=== PATIENT | female | born 1955 | race Caucasian/White ===

== ENCOUNTER → 2019-01-26 22:35 | Outpatient (CLI) | payer OTHER, SELFPAY ==
[2019-01-25 17:46] VITALS: BMI 32.8
== END ==
PROVIDERS: Family Provider Family Medicine; PCP Family Medicine; Referring Provider Nurse Practitioner; Visit Provider Nurse Practitioner
DX: N39.0 Urinary tract infection, site not specified (principal)
CPT/HCPCS: 87086

== ENCOUNTER → 2019-03-04 22:16 | Outpatient (CLI) | payer OTHER, SELFPAY ==
[2019-03-04 15:37] VITALS: BMI 33.0
[2019-03-04 22:24] LABS: Absolute Lymphocyte Count 2.54 X10^3/uL (0.83-4.51); Absolute Neutrophil Count 4.9 X10^3/uL (2.0-7.7); Basophil# 0.04 X10^3/uL; Basophil% 0.5 % (0-1); Eosinophil# 0.18 X10^3/uL; Eosinophils% 2.2 % (0-5); Hematocrit 40.3 % (37-47); Hemoglobin 12.6 g/dL (12.0-15.0); Lymphocyte # 2.54 X10^3/ul (4.0); Lymphocyte % 30.7 % (19-41); Mean Corp Hgb Conc 31.3 g/dL (32-36); Mean Corpuscular Volume 92.6 fL (81-99); Mean Platelet Vol. 9.9 fl (6.2-12.0); Monocyte# 0.58 X10^3/uL; NRBC Flagged by Analyzer 0 % (0-5); Neutrophil # 4.91 X10^3/uL (2.7-7.7); Neutrophil % 59.2 % (47-70); Platelet Count 223 K/mm3 (150-450); RBC Distribution Width CV 15.1 % (11.6-14.6); RBC Distribution Width SD 51.8 fl (35.1-43.9); Red Blood Count 4.35 M/mm3 (4.2-5.4); White Blood Count 8.3 K/mm3 (4.4-11.0)
[2019-03-04 22:40] LABS: ALB/GLOB Ratio 0.9 RATIO (0.9-2.4); AST(SGOT) 15 U/L (15-37); Alanine Aminotransfer ALT/SGPT 17 U/L (13-56); Albumin, Serum 3.6 g/dL (3.2-5.0); Alkaline Phosphatase 152 U/L (45-117); Anion Gap 5 (5-15); BUN 13 mg/dL (7-18); BUN/Creat Ratio 10.7 RATIO (10-20); Chloride 110 mmol/L (98-107); Cholesterol 222 mg/dL (200); Creatinine, Serum 1.21 mg/dL (0.55-1.02); EST Glomerular Filtration Rate 48 mL/min (>60); Est Glom Filt Rate - Afr Amer 58 mL/min (>60); Globulin 4.2 g/dL (2.2-4.2); Glucose 78 mg/dL (74-106); High Density Lipoprotein 51 mg/dL; Potassium 3.6 mmol/L (3.5-5.1); Protein, Total 7.8 g/dL (6.4-8.2); Sodium Level 140 mmol/L (136-145); Triglycerides 174 mg/dL; Very Low Density Lipoprotein 35 mg/dL (5-40)
== END ==
PROVIDERS: Family Provider Family Medicine; PCP Family Medicine; Referring Provider Nurse Practitioner; Visit Provider Nurse Practitioner
DX: M79.7 Fibromyalgia (principal); F32.9 Major depressive disorder, single episode, unspecified; E78.00 Pure hypercholesterolemia, unspecified
CPT/HCPCS: 80053; 80061; 85025

== ENCOUNTER → 2020-04-12 22:19 | Outpatient (CLI) | payer OTHER, SELFPAY ==
[2020-04-12 14:47] VITALS: BMI 35.9
[2020-04-12 22:38] LABS: Absolute Lymphocyte Count 2.66 X10^3/uL (0.83-4.51); Absolute Neutrophil Count 4.9 X10^3/uL (2.0-7.7); Basophil# 0.04 X10^3/uL; Basophil% 0.5 % (0-1); Eosinophil# 0.17 X10^3/uL; Hematocrit 41.2 % (37-47); Hemoglobin 13.2 g/dL (12.0-15.0); Lymphocyte # 2.66 X10^3/ul (4.0); Lymphocyte % 31.7 % (19-41); Mean Corpuscular Hgb 30.1 pg (27.0-32.0); Mean Corpuscular Volume 94.1 fL (81-99); Mean Platelet Vol. 9.4 fl (6.2-12.0); Monocyte# 0.56 X10^3/uL; Monocyte% 6.7 % (0-10); NRBC Flagged by Analyzer 0 % (0-5); Neutrophil # 4.92 X10^3/uL (2.7-7.7); Neutrophil % 58.6 % (47-70); Platelet Count 256 K/mm3 (150-450); RBC Distribution Width CV 14.5 % (11.6-14.6); Red Blood Count 4.38 M/mm3 (4.2-5.4); White Blood Count 8.4 K/mm3 (4.4-11.0)
[2020-04-12 22:39] LABS: ALB/GLOB Ratio 0.8 RATIO (0.9-2.4); AST(SGOT) 19 U/L (15-37); Alanine Aminotransfer ALT/SGPT 17 U/L (13-56); Albumin, Serum 3.4 g/dL (3.2-5.0); Alkaline Phosphatase 167 U/L (45-117); Anion Gap 5 (5-15); BUN 18 mg/dL (7-18); BUN/Creat Ratio 15.5 RATIO (10-20); Chloride 112 mmol/L (98-107); Cholesterol 254 mg/dL (200); Creatinine, Serum 1.16 mg/dL (0.55-1.02); EST Glomerular Filtration Rate 50 mL/min (>60); Est Glom Filt Rate - Afr Amer 60 mL/min (>60); Globulin 4.2 g/dL (2.2-4.2); Glucose 82 mg/dL (74-106); High Density Lipoprotein 62 mg/dL; Protein, Total 7.6 g/dL (6.4-8.2); Sodium Level 141 mmol/L (136-145); Triglycerides 102 mg/dL; Very Low Density Lipoprotein 20 mg/dL (5-40)
== END ==
PROVIDERS: PCP Family Medicine; Referring Provider Nurse Practitioner; Visit Provider Nurse Practitioner
DX: M79.7 Fibromyalgia (principal); F32.9 Major depressive disorder, single episode, unspecified; E78.00 Pure hypercholesterolemia, unspecified
CPT/HCPCS: 80053; 80061; 85025

== ENCOUNTER → 2020-12-20 22:40 | Outpatient (CLI) | payer MEDICARE, SELFPAY ==
[2020-12-20 18:24] VITALS: BMI 33.6
[2020-12-20 22:48] LABS: Absolute Lymphocyte Count 2.99 X10^3/uL (0.83-4.51); Absolute Neutrophil Count 5.3 X10^3/uL (2.0-7.7); Basophil# 0.04 X10^3/uL; Basophil% 0.4 % (0-1); Eosinophil# 0.16 X10^3/uL; Eosinophils% 1.8 % (0-5); Hematocrit 42.2 % (37-47); Hemoglobin 13.5 g/dL (12.0-15.0); Lymphocyte # 2.99 X10^3/ul (0.83-4.51); Lymphocyte % 33.1 % (19-41); Mean Corpuscular Hgb 28.8 pg (27.0-32.0); Mean Corpuscular Volume 90.2 fL (81-99); Mean Platelet Vol. 10.1 fl (6.2-12.0); Monocyte# 0.54 X10^3/uL; NRBC Flagged by Analyzer 0 % (0-5); Neutrophil # 5.27 X10^3/uL (2.7-7.7); Neutrophil % 58.5 % (47-70); Platelet Count 233 K/mm3 (150-450); RBC Distribution Width CV 15.5 % (11.6-14.6); RBC Distribution Width SD 50.8 fl (35.1-43.9); Red Blood Count 4.68 M/mm3 (4.2-5.4)
[2020-12-20 22:59] LABS: AST(SGOT) 23 U/L (15-37); Alanine Aminotransfer ALT/SGPT 19 U/L (13-56); Albumin, Serum 3.8 g/dL (3.2-5.0); Alkaline Phosphatase 157 U/L (45-117); Anion Gap 8 (5-15); BUN 19 mg/dL (7-18); BUN/Creat Ratio 20.6 RATIO (10-20); Calcium,Total 9.2 mg/dL (8.5-10.1); Chloride 107 mmol/L (98-107); Cholesterol 207 mg/dL (200); Creatinine, Serum 0.92 mg/dL (0.55-1.02); EST Glomerular Filtration Rate 65 mL/min (>60); Est Glom Filt Rate - Afr Amer 79 mL/min (>60); Glucose 81 mg/dL (74-106); High Density Lipoprotein 50 mg/dL; Potassium 3.6 mmol/L (3.5-5.1); Protein, Total 7.8 g/dL (6.4-8.2); Sodium Level 140 mmol/L (136-145); Triglycerides 124 mg/dL; Very Low Density Lipoprotein 25 mg/dL (5-40)
== END ==
PROVIDERS: PCP Family Medicine; Referring Provider Nurse Practitioner; Visit Provider Nurse Practitioner
DX: M25.561 Pain in right knee (principal); G89.29 Other chronic pain; M25.562 Pain in left knee; F51.01 Primary insomnia; E78.5 Hyperlipidemia, unspecified
CPT/HCPCS: 80053; 80061; 85025

== ENCOUNTER → 2021-06-19 | Outpatient (CLI) | payer MEDICARE, SELFPAY ==
[2021-06-19 21:47] LABS: Absolute Lymphocyte Count 2.64 X10^3/uL (0.83-4.51); Absolute Neutrophil Count 4.3 X10^3/uL (2.0-7.7); Basophil# 0.04 X10^3/uL; Basophil% 0.5 % (0-1); Eosinophils% 2.6 % (0-5); Hemoglobin 14.1 g/dL (12.0-15.0); Lymphocyte # 2.64 X10^3/ul (0.83-4.51); Lymphocyte % 33.9 % (19-41); Mean Corpuscular Hgb 29.9 pg (27.0-32.0); Mean Corpuscular Volume 93.2 fL (81-99); Mean Platelet Vol. 9.2 fl (6.2-12.0); Monocyte# 0.56 X10^3/uL; Monocyte% 7.2 % (0-10); NRBC Flagged by Analyzer 0 % (0-5); Neutrophil # 4.32 X10^3/uL (2.7-7.7); Neutrophil % 55.5 % (47-70); Platelet Count 224 K/mm3 (150-450); RBC Distribution Width CV 13.9 % (11.6-14.6); RBC Distribution Width SD 47.8 fl (35.1-43.9); Red Blood Count 4.72 M/mm3 (4.2-5.4); White Blood Count 7.8 K/mm3 (4.4-11.0)
[2021-06-19 21:59] LABS: Vitamin B12 169 pg/mL (211-911)
[2021-06-19 22:04] LABS: ALB/GLOB Ratio 0.8 RATIO (0.9-2.4); AST(SGOT) 18 U/L (15-37); Alanine Aminotransfer ALT/SGPT 18 U/L (13-56); Albumin, Serum 3.4 g/dL (3.2-5.0); Alkaline Phosphatase 152 U/L (45-117); Anion Gap 4 (5-15); BUN 13 mg/dL (7-18); BUN/Creat Ratio 13.3 RATIO (10-20); CRP, High Sensitivity Cardiac 8.07 mg/L; Chloride 109 mmol/L (98-107); Creatinine, Serum 0.98 mg/dL (0.55-1.02); EST Glomerular Filtration Rate 60 mL/min (>60); Est Glom Filt Rate - Afr Amer 73 mL/min (>60); Globulin 4.3 g/dL (2.2-4.2); Glucose 98 mg/dL (74-106); Potassium 4.2 mmol/L (3.5-5.1); Protein, Total 7.7 g/dL (6.4-8.2); Sodium Level 141 mmol/L (136-145); T4 Free Direct 0.82 ng/dL (0.76-1.46); Thyroid Stim Hormone (TSH) 3.37 uIU/mL (0.358-3.74)
[2021-06-24 14:13] LABS: Vitamin D 1,25-Dihydroxy 53.5 pg/mL (19.9-79.3)
== END | disposition home or self-care (01) ==
LOC: LABSPEC 21:39
PROVIDERS: PCP Family Medicine; Visit Provider Nurse Practitioner
DX: R42 Dizziness and giddiness (principal); R00.2 Palpitations; E53.8 Deficiency of other specified B group vitamins; E55.9 Vitamin D deficiency, unspecified
CPT/HCPCS: 80053; 82607; 82652; 84439; 84443; 85025; 86141

== ENCOUNTER 2021-09-20 07:14 | Outpatient (CLI) | payer MEDICARE, SELFPAY ==
--- NOTE | 2021-09-20 07:45 | MRI_ITS ---
STUDY: MRI THORACIC SPINE WITHOUT CONTRAST REASON FOR EXAM: Female, 66 years old. Back pain and pain in the ribs for 6 months. COMPRESSION FX TECHNIQUE: Standardized fat and water weighted pulse sequences were obtained in the sagittal and axial planes. COMPARISON: None. FINDINGS: Normal kyphosis of the thoracic spine. There is a levoscoliosis of the thoracic spine. Benign fatty hemangiomas are present in several vertebral bodies. No visualized fracture or marrow edema or compression deformity. Cervical spine hardware is partially visualized. T1-2, T2-3, T3-4, T4-5, T5-6, T6-7, T7-8, T8-9, T9-10, T10-11, T11-12: Mild to moderate disc space narrowing, diffuse disc desiccation, and endplate spurring is present throughout the thoracic spine. No significant posterior disc herniation or bulging or extrusion is present. No demonstrated cord compression. Retrolisthesis of T12 on L1 of 3 mm the left paracentral disc protrusion. Normal central canal and intervertebral neural foramina at the corresponding levels. Normal visualized thoracic cord. No cord syrinx or lesions are present. Normal conus medullaris that terminates at the T12-L1 level.. The soft tissue structures are unremarkable. MRI/Spine Thoracic (Routine) IMPRESSION: 1. Multilevel degenerative changes of the thoracic spine. 2. No visualized fracture or marrow edema or compression deformity. Cervical spine hardware is partially visualized. Electronically Signed: Greyson Garland MD at 9:29 EDT ,
== END 2021-09-20 23:59 | disposition home or self-care (01) ==
LOC: MRI 07:17
PROVIDERS: PCP Nurse Practitioner; Referring Provider Anesthesiology Pain Medicine; Visit Provider Anesthesiology Pain Medicine
DX: M54.9 Dorsalgia, unspecified (principal); R07.81 Pleurodynia
CPT/HCPCS: 72146

== ENCOUNTER 2021-10-07 10:48 | Outpatient (CLI) | payer MEDICARE, SELFPAY ==
--- NOTE | 2021-10-07 10:55 | RAD_ITS ---
STUDY: X-RAY - LUMBAR SPINE REASON FOR EXAM: Female, 66 years old. RADICULOPATHY TECHNIQUE: 3 view(s) of the lumbar spine were obtained. COMPARISON: None FINDINGS: Exaggeration of the normal lordosis of the columns of the lumbar spine is visualized, grade 1 anterolisthesis of L4 over L5 is seen. No significant variation in alignment is visualized in the flexion, extension and neutral positions. No evidence of compression deformity of the lumbar vertebral bodies, multilevel degenerative endplate changes is seen. No evidence of lytic or sclerotic bone lesion is seen. Extensive degenerative changes visualized in the facet joints most prominent at L5. RAD/L/S Spine Bending Flex/Ext IMPRESSION: Degenerative changes of the lumbar spine, no evidence of acute osseous abnormality is seen. Electronically Signed: Danny Godinez MD at 12:36 EDT ,
--- NOTE | 2021-10-07 11:05 | RAD_ITS ---
INDICATION: RADICULOPATHY EXAMINATION/TECHNIQUE: X-RAY - XR Spine Thoracic 3 Views COMPARISON: 09/20/2021 FINDINGS: Mild levoscoliosis of the upper thoracic spine is visualized, levoscoliosis of the thoracolumbar junction is visualized. Multilevel degenerative endplate changes are seen is bone osteophyte formation. No evidence of compression deformity of the thoracic vertebral bodies. Suggestion of multilevel degenerative intervertebral disc disease is seen. Decreased intervertebral disc height is seen levels. No evidence of lytic or sclerotic bone lesion is seen. Internal fixation of the lower cervical spine is seen. No acute abnormalities of the visualized chest and abdominal mancuso. RAD/Thoracic Spine 3 Views IMPRESSION: Degenerative changes, no evidence of acute osseous abnormality Electronically Signed: Danny Godinez MD at 12:34 EDT ,
== END 2021-10-07 23:59 | disposition home or self-care (01) ==
LOC: RAD 10:51
PROVIDERS: PCP Nurse Practitioner; Referring Provider Anesthesiology Pain Medicine; Visit Provider Anesthesiology Pain Medicine
DX: M54.15 Radiculopathy, thoracolumbar region (principal)
CPT/HCPCS: 72072; 72120

== ENCOUNTER → 2022-03-14 | Outpatient (CLI) | payer MEDICARE, SELFPAY ==
[2022-03-14 21:39] LABS: Absolute Lymphocyte Count 2.52 X10^3/uL (0.83-4.51); Absolute Neutrophil Count 4.9 X10^3/uL (2.0-7.7); Basophil# 0.04 X10^3/uL; Basophil% 0.5 % (0-1); Eosinophil# 0.18 X10^3/uL; Eosinophils% 2.2 % (0-5); Hematocrit 43.2 % (37-47); Hemoglobin 14.4 g/dL (12.0-15.0); Lymphocyte # 2.52 X10^3/ul (0.83-4.51); Lymphocyte % 30.5 % (19-41); Mean Corp Hgb Conc 33.3 g/dL (32-36); Mean Corpuscular Hgb 30.8 pg (27.0-32.0); Mean Corpuscular Volume 92.3 fL (81-99); Mean Platelet Vol. 9.6 fl (6.2-12.0); Monocyte# 0.58 X10^3/uL; NRBC Flagged by Analyzer 0 % (0-5); Neutrophil # 4.92 X10^3/uL (2.7-7.7); Neutrophil % 59.6 % (47-70); Platelet Count 227 K/mm3 (150-450); RBC Distribution Width CV 13.7 % (11.6-14.6); RBC Distribution Width SD 46.6 fl (35.1-43.9); Red Blood Count 4.68 M/mm3 (4.2-5.4); White Blood Count 8.3 K/mm3 (4.4-11.0)
[2022-03-14 21:55] LABS: Vitamin B12 331 pg/mL (211-911)
[2022-03-14 22:04] LABS: ALB/GLOB Ratio 0.9 RATIO (0.9-2.4); AST(SGOT) 31 U/L (15-37); Alanine Aminotransfer ALT/SGPT 28 U/L (13-56); Albumin, Serum 3.6 g/dL (3.2-5.0); Alkaline Phosphatase 110 U/L (45-117); Anion Gap 6 (5-15); BUN 10 mg/dL (7-18); BUN/Creat Ratio 11.7 RATIO (10-20); Calcium,Total 9.1 mg/dL (8.5-10.1); Chloride 106 mmol/L (98-107); Cholesterol 213 mg/dL (200); Creatinine, Serum 0.85 mg/dL (0.55-1.02); EST Glomerular Filtration Rate 71 mL/min (>60); Est Glom Filt Rate - Afr Amer 86 mL/min (>60); Globulin 3.9 g/dL (2.2-4.2); Glucose 92 mg/dL (74-106); High Density Lipoprotein 53 mg/dL; Protein, Total 7.5 g/dL (6.4-8.2); Sodium Level 140 mmol/L (136-145); Thyroid Stim Hormone (TSH) 2.71 uIU/mL (0.358-3.74); Triglycerides 83 mg/dL; Very Low Density Lipoprotein 17 mg/dL (5-40)
[2022-03-17 18:08] LABS: Anti-Centromere B Ab <0.2 AI (0.0-0.9); Anti-Chromatin <0.2 AI (0.0-0.9); Anti-Jo <0.2 AI (0.0-0.9); Anti-Scleroderma-70 AB <0.2 AI (0.0-0.9); RNP Ab <0.2 AI (0.0-0.9); SJOGREN'S Anti-SS-A test < 0.2 AI (0.0-0.9); SJOGREN'S Anti-SS-B test < 0.2 AI (0.0-0.9); Smith Ab <0.2 AI (0.0-0.9)
[2022-03-18 13:57] LABS: Anti-dsDNA Ab <1 IU/mL (0-9)
== END | disposition home or self-care (01) ==
PROVIDERS: PCP Nurse Practitioner; Visit Provider Nurse Practitioner
DX: M25.50 Pain in unspecified joint (principal); R21 Rash and other nonspecific skin eruption; E53.9 Vitamin B deficiency, unspecified; M25.561 Pain in right knee; G89.29 Other chronic pain; M25.562 Pain in left knee; E78.5 Hyperlipidemia, unspecified; E03.9 Hypothyroidism, unspecified
CPT/HCPCS: 80053; 80061; 82607; 84443; 85025; 86225; 86235

== ENCOUNTER → 2022-09-24 | Outpatient (CLI) | payer MEDICARE, SELFPAY ==
[2022-09-24 22:31] LABS: Absolute Lymphocyte Count 2.69 X10^3/uL (0.83-4.51); Absolute Neutrophil Count 4.3 X10^3/uL (2.0-7.7); Basophil# 0.03 X10^3/uL; Basophil% 0.4 % (0-1); Eosinophil# 0.19 X10^3/uL; Eosinophils% 2.4 % (0-5); Hematocrit 39.8 % (37-47); Hemoglobin 13.1 g/dL (12.0-15.0); Lymphocyte # 2.69 X10^3/ul (0.83-4.51); Lymphocyte % 34.4 % (19-41); Mean Corp Hgb Conc 32.9 g/dL (32-36); Mean Corpuscular Hgb 28.9 pg (27.0-32.0); Mean Corpuscular Volume 87.7 fL (81-99); Mean Platelet Vol. 9.9 fl (6.2-12.0); Monocyte# 0.59 X10^3/uL; Monocyte% 7.6 % (0-10); NRBC Flagged by Analyzer 0 % (0-5); Neutrophil % 55.1 % (47-70); Platelet Count 253 K/mm3 (150-450); RBC Distribution Width CV 13.2 % (11.6-14.6); RBC Distribution Width SD 42.5 fl (35.1-43.9); Red Blood Count 4.54 M/mm3 (4.2-5.4); White Blood Count 7.8 K/mm3 (4.4-11.0)
[2022-09-24 22:55] LABS: ALB/GLOB Ratio 0.9 RATIO (0.9-2.4); AST(SGOT) 20 U/L (15-37); Alanine Aminotransfer ALT/SGPT 18 U/L (13-56); Albumin, Serum 3.5 g/dL (3.2-5.0); Alkaline Phosphatase 123 U/L (45-117); Anion Gap 6 (5-15); BUN 15 mg/dL (7-18); BUN/Creat Ratio 16.1 RATIO (10-20); Calcium,Total 9.6 mg/dL (8.5-10.1); Chloride 103 mmol/L (98-107); Cholesterol 200 mg/dL (200); Creatinine, Serum 0.93 mg/dL (0.55-1.02); EST Glomerular Filtration Rate 64 mL/min (>60); Est Glom Filt Rate - Afr Amer 77 mL/min (>60); Glucose 90 mg/dL (74-106); High Density Lipoprotein 46 mg/dL; Protein, Total 7.5 g/dL (6.4-8.2); Sodium Level 136 mmol/L (136-145); Thyroid Stim Hormone (TSH) 2.06 uIU/mL (0.358-3.74); Triglycerides 81 mg/dL; Very Low Density Lipoprotein 16 mg/dL (5-40)
== END | disposition home or self-care (01) ==
PROVIDERS: PCP Nurse Practitioner; Visit Provider Nurse Practitioner
DX: F51.01 Primary insomnia (principal); F41.1 Generalized anxiety disorder; F32.9 Major depressive disorder, single episode, unspecified; G43.709 Chronic migraine without aura, not intractable, without status migrainosus; M25.561 Pain in right knee; M25.562 Pain in left knee; G89.29 Other chronic pain; E03.9 Hypothyroidism, unspecified
CPT/HCPCS: 80053; 80061; 84443; 85025

== ENCOUNTER → 2023-09-01 | Outpatient (CLI) | payer MEDICARE, SELFPAY ==
[2023-09-01 22:19] LABS: Absolute Lymphocyte Count 2.36 X10^3/uL (0.83-4.51); Absolute Neutrophil Count 4.3 X10^3/uL (2.0-7.7); Basophil# 0.05 X10^3/uL; Basophil% 0.7 % (0-1); Eosinophil# 0.16 X10^3/uL; Eosinophils% 2.2 % (0-5); Hematocrit 41.6 % (37-47); Hemoglobin 13.2 g/dL (12.0-15.0); Lymphocyte # 2.36 X10^3/ul (0.83-4.51); Lymphocyte % 31.9 % (19-41); Mean Corp Hgb Conc 31.7 g/dL (32-36); Mean Corpuscular Hgb 28.6 pg (27.0-32.0); Mean Corpuscular Volume 90.2 fL (81-99); Mean Platelet Vol. 9.4 fl (6.2-12.0); Monocyte# 0.57 X10^3/uL; Monocyte% 7.7 % (0-10); NRBC Flagged by Analyzer 0 % (0-5); Neutrophil # 4.25 X10^3/uL (2.7-7.7); Neutrophil % 57.4 % (47-70); Platelet Count 250 K/mm3 (150-450); RBC Distribution Width CV 15.2 % (11.6-14.6); RBC Distribution Width SD 50.2 fl (35.1-43.9); Red Blood Count 4.61 M/mm3 (4.2-5.4); White Blood Count 7.4 K/mm3 (4.4-11.0)
[2023-09-01 22:29] LABS: Vitamin B12 201 pg/mL (211-911)
[2023-09-01 22:50] LABS: AST(SGOT) 17 U/L (15-37); Alanine Aminotransfer ALT/SGPT 13 U/L (13-56); Albumin, Serum 3.8 g/dL (3.2-5.0); Alkaline Phosphatase 152 U/L (45-117); Anion Gap 7 (5-15); BUN 13 mg/dL (7-18); BUN/Creat Ratio 11.9 RATIO (10-20); Calcium,Total 9.3 mg/dL (8.5-10.1); Chloride 104 mmol/L (98-107); Cholesterol 233 mg/dL (200); Creatinine, Serum 1.09 mg/dL (0.55-1.02); EST Glomerular Filtration Rate 53 mL/min (>60); Est Glom Filt Rate - Afr Amer 64 mL/min (>60); Globulin 3.9 g/dL (2.2-4.2); Glucose 82 mg/dL (74-106); High Density Lipoprotein 55 mg/dL; Magnesium 2.5 mg/dL (1.6-2.6); Potassium 4.1 mmol/L (3.5-5.1); Protein, Total 7.7 g/dL (6.4-8.2); Sodium Level 141 mmol/L (136-145); Thyroid Stim Hormone (TSH) 3.76 uIU/mL (0.358-3.74); Triglycerides 154 mg/dL; Very Low Density Lipoprotein 31 mg/dL (5-40)
[2023-09-05 20:07] LABS: Treponema palladium Ab (FTA) Non Reactive (Non Reactive); VITAMIN B6 4.2 ug/L (3.4-65.2)
== END | disposition home or self-care (01) ==
PROVIDERS: PCP Nurse Practitioner; Referring Provider Nurse Practitioner; Visit Provider Nurse Practitioner
DX: N30.90 Cystitis, unspecified without hematuria (principal); E03.9 Hypothyroidism, unspecified; G47.00 Insomnia, unspecified; F32.9 Major depressive disorder, single episode, unspecified; M25.561 Pain in right knee; G89.29 Other chronic pain; M25.562 Pain in left knee; E53.8 Deficiency of other specified B group vitamins; F41.1 Generalized anxiety disorder; R41.3 Other amnesia
CPT/HCPCS: 80053; 80061; 82607; 82746; 83735; 84207; 84443; 85025; 86780; 87077; 87086; 87088; 87186

== ENCOUNTER → 2023-09-14 | Outpatient (CLI) | payer MEDICARE, SELFPAY | END | disposition home or self-care (01) | PROVIDERS: PCP Nurse Practitioner; Visit Provider Nurse Practitioner | DX: N30.90 Cystitis, unspecified without hematuria (principal) | CPT/HCPCS: 87086 ==

== ENCOUNTER → 2023-10-01 | Outpatient (CLI) | payer MEDICARE, SELFPAY | END | disposition home or self-care (01) | LOC: LABSPEC 20:35 | PROVIDERS: PCP Nurse Practitioner; Visit Provider Nurse Practitioner | DX: R41.3 Other amnesia (principal); K58.9 Irritable bowel syndrome, unspecified; E03.9 Hypothyroidism, unspecified | CPT/HCPCS: 81291 ==

== ENCOUNTER → 2023-12-03 | Outpatient (CLI) | payer MEDICARE, SELFPAY ==
[2023-12-03 20:15] LABS: Absolute Lymphocyte Count 1.95 X10^3/uL (0.83-4.51); Absolute Neutrophil Count 4.2 X10^3/uL (2.0-7.7); Basophil# 0.03 X10^3/uL; Basophil% 0.4 % (0-1); Eosinophil# 0.15 X10^3/uL; Eosinophils% 2.2 % (0-5); Hematocrit 39.3 % (37-47); Hemoglobin 12.3 g/dL (12.0-15.0); Lymphocyte # 1.95 X10^3/ul (0.83-4.51); Lymphocyte % 28.7 % (19-41); Mean Corp Hgb Conc 31.3 g/dL (32-36); Mean Corpuscular Hgb 27.3 pg (27.0-32.0); Mean Corpuscular Volume 87.1 fL (81-99); Mean Platelet Vol. 9.7 fl (6.2-12.0); Monocyte# 0.47 X10^3/uL; Monocyte% 6.9 % (0-10); NRBC Flagged by Analyzer 0 % (0-5); Neutrophil # 4.18 X10^3/uL (2.7-7.7); Neutrophil % 61.7 % (47-70); Platelet Count 250 K/mm3 (150-450); RBC Distribution Width SD 47.9 fl (35.1-43.9); Red Blood Count 4.51 M/mm3 (4.2-5.4); White Blood Count 6.8 K/mm3 (4.4-11.0)
[2023-12-03 20:31] LABS: Vitamin B12 > 2000 pg/mL (211-911)
[2023-12-03 21:05] LABS: Cholesterol 196 mg/dL (200); High Density Lipoprotein 55 mg/dL; Triglycerides 99 mg/dL; Very Low Density Lipoprotein 20 mg/dL (5-40)
[2023-12-08 17:08] LABS: VITAMIN B6 22.3 ug/L (3.4-65.2)
== END | disposition home or self-care (01) ==
PROVIDERS: PCP Nurse Practitioner; Visit Provider Nurse Practitioner
DX: E53.1 Pyridoxine deficiency (principal); E78.5 Hyperlipidemia, unspecified; E03.9 Hypothyroidism, unspecified; N30.90 Cystitis, unspecified without hematuria; H20.9 Unspecified iridocyclitis
CPT/HCPCS: 80061; 82607; 82746; 84207; 85025; 87086

== ENCOUNTER → 2024-01-07 | Outpatient (CLI) | payer MEDICARE, SELFPAY | END | disposition home or self-care (01) | PROVIDERS: PCP Nurse Practitioner; Visit Provider Nurse Practitioner | DX: N30.90 Cystitis, unspecified without hematuria (principal) | CPT/HCPCS: 87077; 87086; 87088; 87186 ==

== ENCOUNTER → 2024-01-15 | Outpatient (CLI) | payer MEDICARE, SELFPAY | END | disposition home or self-care (01) | PROVIDERS: PCP Nurse Practitioner; Referring Provider Nurse Practitioner; Visit Provider Nurse Practitioner | DX: N30.90 Cystitis, unspecified without hematuria (principal) | CPT/HCPCS: 87086 ==

== ENCOUNTER → 2024-07-04 | Outpatient (CLI) | payer MEDICARE, SELFPAY ==
[2024-07-04 22:02] LABS: Absolute Lymphocyte Count 1.97 X10^3/uL (0.83-4.51); Absolute Neutrophil Count 4.1 X10^3/uL (2.0-7.7); Basophil# 0.03 X10^3/uL; Basophil% 0.5 % (0-1); Eosinophil# 0.11 X10^3/uL; Eosinophils% 1.7 % (0-5); Hematocrit 40.3 % (37-47); Hemoglobin 13.2 g/dL (12.0-15.0); Lymphocyte # 1.97 X10^3/ul (0.83-4.51); Lymphocyte % 29.7 % (19-41); Mean Corp Hgb Conc 32.8 g/dL (32-36); Mean Corpuscular Hgb 29.1 pg (27.0-32.0); Mean Platelet Vol. 9.3 fl (6.2-12.0); Monocyte# 0.46 X10^3/uL; Monocyte% 6.9 % (0-10); NRBC Flagged by Analyzer 0 % (0-5); Neutrophil # 4.05 X10^3/uL (2.7-7.7); Platelet Count 221 K/mm3 (150-450); RBC Distribution Width CV 13.2 % (11.6-14.6); RBC Distribution Width SD 43.4 fl (35.1-43.9); Red Blood Count 4.53 M/mm3 (4.2-5.4); White Blood Count 6.6 K/mm3 (4.4-11.0)
[2024-07-04 22:42] LABS: ALB/GLOB Ratio 0.9 RATIO (0.9-2.4); AST(SGOT) 14 U/L (15-37); Alanine Aminotransfer ALT/SGPT 15 U/L (13-56); Albumin, Serum 3.5 g/dL (3.2-5.0); Alkaline Phosphatase 136 U/L (45-117); Anion Gap 3 (5-15); BUN 11 mg/dL (7-18); BUN/Creat Ratio 12.8 RATIO (10-20); Calcium,Total 9.3 mg/dL (8.5-10.1); Chloride 103 mmol/L (98-107); Cholesterol 233 mg/dL (200); Creatinine, Serum 0.86 mg/dL (0.55-1.02); EST Glomerular Filtration Rate 69 mL/min (>60); Est Glom Filt Rate - Afr Amer 84 mL/min (>60); Globulin 3.9 g/dL (2.2-4.2); Glucose 104 mg/dL (74-106); High Density Lipoprotein 60 mg/dL; Potassium 4.5 mmol/L (3.5-5.1); Protein, Total 7.4 g/dL (6.4-8.2); Sodium Level 138 mmol/L (136-145); Triglycerides 154 mg/dL; Very Low Density Lipoprotein 31 mg/dL (5-40)
== END | disposition home or self-care (01) ==
PROVIDERS: PCP Nurse Practitioner; Referring Provider Nurse Practitioner; Visit Provider Nurse Practitioner
DX: E78.5 Hyperlipidemia, unspecified (principal); N32.81 Overactive bladder; K58.9 Irritable bowel syndrome, unspecified; E03.9 Hypothyroidism, unspecified; M79.7 Fibromyalgia; E28.39 Other primary ovarian failure

== ENCOUNTER → 2024-11-09 | Outpatient (CLI) | payer MEDICARE, SELFPAY ==
[2024-11-09 23:05] LABS: Absolute Lymphocyte Count 2.57 X10^3/uL (0.83-4.51); Absolute Neutrophil Count 3.3 X10^3/uL (2.0-7.7); Basophil# 0.05 X10^3/uL; Basophil% 0.8 % (0-1); Eosinophil# 0.14 X10^3/uL; Eosinophils% 2.1 % (0-5); Hematocrit 39.2 % (37-47); Hemoglobin 12.8 g/dL (12.0-15.0); Lymphocyte # 2.57 X10^3/ul (0.83-4.51); Lymphocyte % 39.1 % (19-41); Mean Corp Hgb Conc 32.7 g/dL (32-36); Mean Corpuscular Hgb 28.9 pg (27.0-32.0); Mean Corpuscular Volume 88.5 fL (81-99); Mean Platelet Vol. 9.8 fl (6.2-12.0); Monocyte# 0.46 X10^3/uL; NRBC Flagged by Analyzer 0 % (0-5); Neutrophil # 3.33 X10^3/uL (2.7-7.7); Neutrophil % 50.7 % (47-70); Platelet Count 235 K/mm3 (150-450); RBC Distribution Width CV 13.2 % (11.6-14.6); RBC Distribution Width SD 43.1 fl (35.1-43.9); Red Blood Count 4.43 M/mm3 (4.2-5.4); White Blood Count 6.6 K/mm3 (4.4-11.0)
[2024-11-10 11:24] LABS: ALB/GLOB Ratio 1.2 RATIO (0.9-2.4); AST(SGOT) 25 U/L (<=31); Alanine Aminotransfer ALT/SGPT 15 U/L (<=34); Albumin, Serum 4.1 g/dL (3.4-4.8); Alkaline Phosphatase 153 U/L (35-104); Anion Gap 10 (5-15); BUN 9 mg/dL (4-19); BUN/Creat Ratio 11.6 RATIO (10-20); Calcium,Total 9.5 mg/dL (7.6-11.0); Carbon Dioxide 27.5 mmol/L (21.0-32.0); Chloride 100 mmol/L (98-108); Cholesterol 190 mg/dL (<=200); Creatinine, Serum 0.78 mg/dL (0.70-1.20); EST Glomerular Filtration Rate 82 (>60); Globulin 3.3 g/dL (2.2-4.2); Glucose 77 mg/dL (70-99); High Density Lipoprotein 50 mg/dL; Lipase 16 U/L (13-75); Low Density Lipoprotein Calc. 115 mg/dL; Protein, Total 7.3 g/dL (5.9-8.4); Sodium Level 137 mmol/L (133-145); Total Bilirubin 0.19 mg/dL (0.00-1.30); Triglycerides 124 mg/dL; Very Low Density Lipoprotein 25 mg/dL (5-40); cholesterol:hdl ratio screen 3.78
== END | disposition home or self-care (01) ==
LOC: OLS.AHF 22:52
PROVIDERS: PCP Nurse Practitioner; Visit Provider Nurse Practitioner
DX: E78.2 Mixed hyperlipidemia (principal); E03.9 Hypothyroidism, unspecified; F41.1 Generalized anxiety disorder; F32.9 Major depressive disorder, single episode, unspecified; R53.83 Other fatigue
CPT/HCPCS: 80053; 80061; 83690; 84443; 85025

== ENCOUNTER → 2024-11-23 | Outpatient (CLI) | payer MEDICARE, SELFPAY ==
--- OUTSIDE RECORDS SUMMARY | 2024-11-23 22:58 | XMS RPT_ITS | CCD ---
Author Organization [facility] Care Team Providers Care Medical Record Retrieval Specialist Name Role Phone ABDIRAHMAN PRECIADO Unavailable Unavailable ABDIRAHMAN PRECIADO Unavailable Unavailable SEHLLEY, ANDRE Unavailable Unavailable SHELLEY, ANDRE Unavailable Unavailable NO REFERRING Unavailable Unavailable Shaggy BURGOS-Miriam PIKE Unavailable Miriam Whitley Unavailable Unavailable Binh Anderson Unavailable Unavailable Richelle Crystal Unavailable Unavailable Cande Ely Primary Care Provider John Ojeda MD Unavailable [employer].Cande PIKE Primary Care Provide r John Ojeda MD N Unavailable [phone] [employer].Cande PIKE Primary Care Provide r [employer] T[employer]ER.Cande PIKE L Primary Care Provide r Lincoln Glynn MD Unavailable Gloria Stewart PA-C Unavailable Tayla Whitman RN Unavailable [employer] T[employer]ER.Cande PIKE L Primary Care Provide r Lincoln Glynn MD Unavailable [phone] ÁNGEL ELYA Mario Referring Unavailable ELY, CANDE L Primary Care Unavailable ELY, CANDE L Primary Care Unavailable CESAR BARNEY Attending Unava ilable ÁNGEL ELYA L Primary Care Unavailable LAURA MCMANUS Attending Unavailable LAURA MCMANUS Referring Unavailable ÁNGEL ELYA L Primary Care Unavailable LAURA MCMANUS Attending Unavailable SELF Referring Unavailable ELY, CANDE L Primary Care Unavailable SIMMONSSIXTO Referring Unavailable ELY, CANDE L Primary Care Unavailable LAURA MCMANUS Attending Unavailable ELY, CANDE L Primary Care Unavailable ELY, CANDE L Primary Care Unavailable ELY, CANDE L Primary Care Unavailable PEREZ, CHRISTY E Referring Unavailable ELY, CANDE L Primary Care Unavailable PEREZ, CHRISTY E Referring Unavailable ELY, CANDE L Primary Care Unavailable PEREZ, CHRISTY E Referring Unavailable ELY, CANDE L Primary Care Unavailable PEREZ, CHRISTY E Referring Unavailable ELY, CANDE L Primary Care Unavailable LAURA MCMANUS Referring Unavailable ELY, CANDE L Primary Care Unavailable ELY, CANDE L Primary Care Unavailable MENA DOUGLASS Admitting Unavailable MENA DOUGLASS Attending Unavailable Rufina BANUELOS Consulting Unavailable PEREZ, CHRISTY E Attending Unavailable ELY, CANDE L [facility] Referring Unavailable ELY, CANDE L Primary Care [facility] Attending Unavailable ELY, CANDE L Primary Care Unavailable PEREZ, CHRISTY E Attending Unavailable ELY, CANDE L Primary Care Unavailable PEREZ, CHRISTY E Attending Unavailable ELY, CANDE L Primary Care Unavailable PEREZ, CHRISTY E Referring Unavailable ELY, CANDE L Primary Care Unavailable HAYDEE WEBB Attending Unavailable [facility], [facility] M Referring Unavailable ELY, CANDE L Primary Care Unavailable Ely SALES SUPPORT COORDINATOR, Cande Primary Care Unavailable Ely SALES SUPPORT COORDINATOR, Cande Attending Unavailable Ely SALES SUPPORT COORDINATOR, Cande Attending Unavailable Ely SALES SUPPORT COORDINATOR, Cande Primary Care Unavailable Ely SALES SUPPORT COORDINATOR, Cande Primary Care Unavailable Ely SALES SUPPORT COORDINATOR, Cande Attending Unavailable Ely SALES SUPPORT COORDINATOR, Cande Referring Unavailable Ely SALES SUPPORT COORDINATOR, Cande Primary Care Unavailable Ely SALES SUPPORT COORDINATOR, Cande Attending Unavailable Ely SALES SUPPORT COORDINATOR, Cande Referring Unavailable Ely SALES SUPPORT COORDINATOR, Cande Primary Care Unavailable Ely SALES SUPPORT COORDINATOR, Cande Attending Unavailable Medications Current Medications Medication Drug Class(es) Dates Sig (Normalized) Sig (Original) acetaminophen 325 mg / butalbital 50 mg / caffeine 40 mg oral tablet (20 sources) Barbiturate, Central Nervous System Stimulant, Methylxanthine Start: 07-25-2016 End: 08-23-2024 take 1 tablet by mouth every six hours as needed acetaminophen 325 mg-caffeine 40 mg-butalbital 50 mg (FIORICET) per tablet [The details of the medication are not available because there are pending changes by a home health clinician.] 30 tablet 1 07/25/2016 08/23/2024 Discontinued Start: 07-25-2016 take 1 tablet by rani th every six hours as needed acetaminophen 325 mg-caffeine 40 mg-butalbital 50 mg (FIORICET) per tablet Take 1 tablet by mouth every 6 hours as needed. 30 tablet 1 07/25/2016 Active Comment on above: Take 1 tablet by rani th every 6 hours as needed. [The details of the medication are not available because there are pending changes by a home health clinician.] ALPRAZolam 0.25 mg disintegrating oral tablet (1 source) Benzodiazepine Start: 03-22-20 ALPRAZolam (NIRAVAM) dissolvable tablet 0.25 mg amoxicillin 875 mg / clavulanate 125 mg oral tablet (17 sources) Penicillin-class Antibacterial Start: 06-25-19 End: 07-30-19 take 1 tablet by mouth every twelve hours amoxicillin-clavula vega acid (AUGMENTIN) 875-125 mg per tablet Take 1 tablet by mouth every 12 hours for 28 days. 56 tablet 0 07/02/2022 07/30/2022 Active Comment on above: Take 1 tablet by rani th every 12 hours for 10 days. Take 1 tablet by rani th every 12 hours for 28 days. atorvastatin 10 mg oral tablet (20 sources) HMG-CoA Reductase Inhibitor Start: 07-05-19 25 take 1 tablet by mouth once atorvastatin (LIPITOR) 10 mg tablet Take 1 tablet by mouth every afternoon. 07/05/2024 Active calcium chloride 0.0014 meq/ml / potassium chloride 0.004 meq/ml / sodium chloride 0.103 meq/ml / sodium lactate 0.028 meq/ml injectable solution (1 source) Start: 03-22-20 lactated ringers infusion cephalexin 250 mg oral capsule (20 sources) Cephalosporin Antibacterial Start: 04-03-20 24 take 1 capsule by mouth once daily cephALEXin (KEFLEX) 250 mg capsule Take 1 capsule by mouth once daily. 90 capsule 04/03/2024 Active Start: 03-28-2024 End: 04-04-2024 take 1 capsule by mouth twice daily cephALEXin (KEFLEX) 500 mg capsule Take 1 capsule by mouth two times a day for 7 days. 14 capsule 03/28/2024 04/04/2024 Active 1 ml denosumab 60 mg/ml prefilled syringe (20 sources) RANK Ligand Inhibitor Start: 07-04-2022 denosumab (PROLIA) 60 mg/mL 60 mg by Injection - FOR ORTHO USE ONLY route once every 6 months. 07/04/2022 Active Comment on above: 60 mg as directed. [The details of the medication are not available because there are pending changes by a home health clinician.] 60 mg by Injection - FOR ORTHO USE ONLY route once every 6 months. 1 ml diphenhydrAMINE hydrochloride 50 mg/ml cartridge (1 source) Histamine-1 Receptor Antagonist Start: 03-22-2019 End: 03-22-2019 diphenhydrAMINE (BENADRYL) injection 12.5 mg enteric contrast (will be provided with radiology test) (3 sources) Start: 08-23-2024 End: 08-24-2024 enteric contrast (will be provided with radiology test) For CT ABD/PEL W IVCON Routine order Administer, As Directed One Time Only, via Oral, Rectal, both Oral and Rectal, Enteric Tube, Stoma or Indwelling Catheter, Enteric Contrast as designated per enteric contrast guidelines 1 Each 08/23/2024 08/24/2024 Active esomeprazole 40 mg delayed release oral capsule (20 sources) Proton Pump Inhibitor take 1 capsule by mouth once daily in the morning esomeprazole (NEXIUM) 40 mg capsule Take 40 mg by mouth daily at 6 am. Active Comment on above: Take 40 mg by mouth DAILY (6 AM). Take 40 mg by mouth daily at 6 am. estradiol 0.1 mg/ml vaginal cream (20 sources) Estrogen Start: 02-01-2024 estradiol (ESTRACE) 0.01 % (0.1 mg/gram) vaginal cream Apply a pea size amount to the vagina nightly for two weeks then 3 weeks for 1 year 42.5 g 11 02/01/2024 Active 2 ml fentaNYL 0.05 mg/ml injection (2 sources) Opioid Agonist Start: 03-22-2019 fentaNYL (SUBLIMAZE) injection 25 mcg Start: 03-22-2019 fentaNYL (SUBL IMAZE) injection 50 mcg folic acid 1 mg oral tablet (20 sources) Start: 09-02-2023 take 1 tablet by mouth once daily folic acid 1 mg tablet Take 1 mg by mouth once daily. 09/02/2023 Active 1 ml hydrALAZINE hydrochloride 20 mg/ml injection (1 source) Arteriolar Vasodilator Start: 03-22-2019 hydrALAZINE (APRESOLINE) injection 5 mg 1 ml HYDROmorphone hydrochloride 1 mg/ml cartridge (2 sources) Opioid Agonist Start: 03-22-2019 HYDROmorphone (DILAUDID) injection 0.25 mg Start: 03-22-2019 HYDROmorphone (DILAUDID) injection 0.5 mg ibuprofen 600 mg oral tablet (20 sources) Nonsteroidal Anti-inflammatory Drug Start: 05-20-2023 take 1 tablet by mouth every eight hours as needed ibuprofen (MOTRIN) 600 mg tablet Take 1 tablet by mouth every 8 hours as needed for pain or fever (specify temp.). 21 tablet 05/20/2023 Active Comment on above: Take 1 tablet by mouth every 8 hours as needed for pain or fever (specify temp.). iv contrast (will be provided with radiology test) (6 sources) Start: 08-23-2024 End: 08-24-2024 iv contrast (will be provided with radiology test) CT ABD/PEL -Inject, intravenously, once for 1 dose.No IV access, insert saline lock prior to the beginning of sedation, infusion, injection of imaging exam. Discontinue saline lock post exam. If Pt. has a central line or IVAD, may access for administration according to line specific nursing protocol. Once exam is complete flush line and de-access according to line specific nursing protocol in the CT contrast administration guidelines link. 1 Each 08/23/2024 08/24/2024 Active Start: 03-04-2024 End: 03-05-2024 iv contrast (will be provide d with radiology test) CT Urogram WO/W Inject, intravenously, once for 1 dose.No IV access, insert saline lock prior to the beginning of sedation, infusion, injection of imaging exam. Discontinue saline lock post exam. If Pt. has a central line or IVAD, may access for administration according to line specific nursing protocol. Once exam is complete flush line and de-access according to line specific nursing protocol in the CT contrast administration guidelines link. 1 Each 03/04/2024 03/05/2024 Active Start: 07-09-2022 End: 07-10-2022 iv contrast (will be provide d with radiology test) CT ABD W -Inject, intravenously, once for 1 dose.No IV access, insert saline lock prior to the beginning of sedation, infusion, injection of imaging exam. Discontinue saline lock post exam. If Pt. has a central line or IVAD, may access for administration according to line specific nursing protocol. Once exam is complete flush line and de-access according to line specific nursing protocol in the CT contrast administration guidelines link. 1 Each 0 07/09/2022 07/10/2022 Start: 07-09-2022 End: 07-10-2022 iv contrast (will be provide d with radiology test) CT ABD W -Inject, intravenously, once for 1 dose.No IV access, insert saline lock prior to the beginning of sedation, infusion, injection of imaging exam. Discontinue saline lock post exam. If Pt. has a central line or IVAD, may access for administration according to line specific nursing protocol. Once exam is complete flush line and de-access according to line specific nursing protocol in the CT contrast administration guidelines link. 1 Each 0 07/09/2022 07/10/2022 Active Comment on above: CT ABD W -Inject, in travenously, once for 1 dose.No IV access, insert saline lock prior to the beginning of sedation, infusion, injection of imaging exam. Discontinue saline lock post exam. If Pt. has a central line or IVAD, may access for administration according to line specific nursing protocol. Once exam is complete flush line and de-access according to line specific nursing protocol in the CT contrast administration guidelines link. 4 ml labetalol hydrochloride 5 mg/ml cartridge (1 source) beta-Adrenergic Henry Start: 03-22-20 labetalol (NORMODYNE;TRANDATE) injection 5 mg lansoprazole 30 mg delayed release oral capsule (20 sources) Proton Pump Inhibitor Start: 09-25-19 take 30 mg by mouth once daily Lansoprazole Active 30 MG PO DAILY September 24, 2022 5:50pm Start: 03-14-2022 End: 09-24-2022 take 30 mg by mouth twice daily Lansoprazole Discontinued 30 MG PO TWICE A DAY March 14, 2022 3:02pm September 24, 2022 5:53pm Start: 04-19-2020 End: 05-21-2022 take 30 mg by mouth once daily Lansoprazole Discontinu ed 30 MG PO DAILY June 19, 2021 4:55pm March 14, 2022 3:03pm Comment on above: Take 30 mg by mouth once daily. levothyroxine sodium 0.05 mg oral tablet (20 sources) l-Thyroxine Start: 09-02-2023 take 50 ug by mouth once daily Levothyroxine Active 50 MCG PO DAILY September 02, 2023 12:00am Start: 09-17-2021 End: 09-02-2023 take 1 tablet by mouth once daily levothyroxine (SYNTHROID) 25 mcg tablet Take 25 mcg by mouth once daily. 09/17/2021 Active Start: 06-20-2021 End: 09-17-2021 take 25 ug by mouth once daily Levothyroxine Discontin ued 25 MCG PO DAILY August 13, 2021 2:21pm September 17, 2021 6:02pm Comment on above: Take 25 mcg by mouth once daily. LORazepam 1 mg oral tablet (20 sources) Benzodiazepine Start: 7 take 1 tablet by mouth every eight hours LORazepam (ATIVAN) 1 mg tablet Indications: Anxiety , Depression, unspecified depression type Take 1 tablet by mouth every 8 hours. 30 tablet 08/06/2016 Active Start: 08-06-2016 LORazepam (ATI VAN) 1 mg tablet Indications: Anxiety , Depression, unspecified depression type [The details of the medication are not available because there are pending changes by a home health clinician.] 30 tablet 08/06/2016 Active Start: 08-06-2016 End: 06-02-2023 take 1 mg by mouth twice daily Lorazepam Discontinued 1 MG PO TWICE A DAY 60 August 20, 2018 3:45pm January 25, 2019 5:53pm Start: 08-06-2016 End: 11-08-2019 take 1 mg by mouth once daily Lorazepam Discontinued 1 MG PO DAILY June 03, 2019 4:39pm November 08, 2019 4:07pm Comment on above: Take 1 tablet by rani th every 8 hours. [The details of the medication are not available because there are pending changes by a home health clinician.] meclizine hydrochloride 12.5 mg oral tablet (20 sources) Antiemetic Start: 2 take 1 tablet by mouth every twelve hours as needed meclizine (ANTIVERT) 12.5 mg tab Take 1 tablet by mouth two times a day as needed (dizziness). 04/17/2022 Active Start: 06-19-2021 End: 09-24-2022 take 12.5 mg by mouth three times daily Meclizine Discontinued 12.5 MG PO THREE TIMES A DAY 45 March 14, 2022 3:03pm September 24, 2022 5:51pm Comment on above: Take 1 tablet by rani th as needed. [The details of the medication are not available because there are pending changes by a home health clinician.] Take 1 tablet by rani th twice daily as needed (dizziness). 1 ml meperidine hydrochloride 25 mg/ml cartridge (1 source) Opioid Agonist Start: 9 meperidine (DEMEROL) injection 12.5 mg 24 hr mirabegron 25 mg extended release oral tablet (20 sources) beta3-Adrenergic Agonist Start: End: take 1 tablet by mouth once daily mirabegron (MYRBETRIQ) 25 mg Tb24 Take 1 tablet by mouth once daily. 30 tablet 2 07/11/2024 10/09/2024 Active Start: 09-24-2022 End: 06-02-2023 take 1 tablet by mouth once daily Mirabegron (Myrbetriq) 25 mg tablet extended release 24 hr Discontinued 25 MG PO DAILY September 24, 2022 12:00am June 02, 2023 5:22pm sertraline 50 mg oral tablet (20 sources) Serotonin Reuptake Inhibitor Start: 05-20-2023 take 2 tablets by mouth once daily at bedtime sertraline (ZOLOFT) 50 mg tablet Indications: Anxiety , Depression, unspecified depression type Take 2 tablets by mouth daily at bedtime. 05/20/2023 Active Start: 03-10-2018 End: 06-02-2023 take 100 mg by mouth once daily Sertraline Discontinue d 100 MG PO DAILY 180 March 18, 2021 11:58am March 14, 2022 3:06pm Start: 10-02-2016 sertraline (ZO LOFT) 50 mg tablet Indications: Anxiety , Depression, unspecified depression type [The details of the medication are not available because there are pending changes by a home health clinician.] 90 tablet 2 10/02/2016 Active Start: 10-02-2016 take 1.5 tablets by mouth twice daily sertraline (ZOLOFT) 50 mg tablet Indications: Anxiety , Depression, unspecified depression type Take 1.5 tablets by mouth twice daily. 90 tablet 2 10/02/2016 Active Comment on above: Take 1.5 tablets by mouth twice daily. [The details of the medication are not available because there are pending changes by a home health clinician.] Take 2 tablets by [facility] daily at bedtime. 1000 ml sodium chloride 9 mg/ml injection (1 source) Start: End: 0.9 % sodium chloride (NACL 0.9%) infusion Administer at rate defined per CT contrast administration specifications. To be provided with radiology test. 150 mL 03/04/2024 03/04/2024 Active solifenacin succinate 5 mg oral tablet (20 sources) Cholinergic Muscarinic Antagonist Start: take 1 tablet by mouth once daily solifenacin (VESICARE) 5 mg tablet Take 1 tablet by mouth once daily. 30 tablet 1 04/13/2024 Active Start: 02-29-2024 End: 03-29-2024 take 1 tablet by mouth once daily solifenacin (VESICARE) 5 mg tablet Take 1 tablet by mouth once daily. 30 tablet 1 02/29/2024 03/29/2024 Discontinued sulfamethoxazole 800 mg / trimethoprim 160 mg oral tablet (9 sources) Dihydrofolate Reductase Inhibitor Antibacterial, Sulfonamide Antimicrobial Start: 08-08-2024 End: 08-09-2024 take 1 tablet by mouth twice daily sulfamethoxazole-trimethoprim (BACTRIM DS) 800-160 mg per tablet Indications: Recurrent UTI Take 1 tablet by mouth two times a day for 2 doses. Take the morning and evening of your Botox procedure. 2 tablet 1 08/08/2024 08/09/2024 Active Start: 02-29-2024 End: 03-03-2024 take 1 tablet by mouth twice daily sulfamethoxazole-trimethoprim (BACTRIM D S) 800-160 mg per tablet Take 1 tablet by mouth two times a day for 3 days. 6 tablet 02/29/2024 03/03/2024 Start: 01-25-2019 End: 02-04-2019 take 1 tablet by mouth twice daily Sulfamethoxazole-Trimethoprim Discontinu ed 1 TABLET PO TWICE A DAY 10 04January 25, 2019 12:00am February 04, 2019 12:07am Syringe With Needle (Bd Luer-Carmencita Syringe) 3 mL 23 x 1 syringe (6 sources) Start: 06-20-2021 Syringe With N eedle (Bd Luer-Carmencita Syringe) 3 mL 23 x 1 syringe Active 0 .ROUTE .MEDSUPPLY June 20, 2021 1:01pm As directed Start: 06-20-2021 End: 09-24-2022 Syringe With Needle (Bd Luer -Carmencita Syringe) 3 mL 23 x 1 syringe Discontinued 0 .ROUTE .MEDSUPPLY June 20, 2021 1:00am September 24, 2022 5:52pm As directed vitamin b12 1 mg/ml injectable solution (11 sources) Vitamin B12 Start: 09-02-2023 inject 1000 ug by intramuscular injection every week Cyanocobalamin (Vitamin B-12) Active 1000 MCG IM EVERY WEEK September 02, 2023 11:31am Start: 06-20-2021 End: 09-24-2022 inject 1000 ug by intramuscular injection every week Cyanocobalamin (Vitamin B-12) Discontinued 1000 MCG IM EVERY WEEK June 20, 2021 1:00am September 24, 2022 5:50pm Start: 06-19-2021 End: 06-19-2021 inject 1000 ug by intramuscular injection once cyanocobalamin (vitamin B-12) 1,000 mcg/mL injection solution Discontinued 1000 MCG IM ONCE June 19, 2021 4:20pm June 19, 2021 7:30pm Completed/Discontinued Medications Medication Drug Class(es) Dates Sig (Normalized) Sig (Original) acetaminophen 500 mg oral tablet (2 sources) Start: 03-22-2019 End: 03-22-2019 acetaminophen (TYLENOL) tablet 1,000 mg Start: 03-22-2019 End: 03-22-2019 acetaminophen (TYLENOL) tabl et 1,000 mg acetaminophen 325 mg / HYDROcodone bitartrate 10 mg oral tablet (8 sources) Opioid Agonist Start: 08-28-2016 End: 06-27-2022 take 1 tablet by mouth every eight hours as needed HYDROcodone-Acetaminophen (NORCO) 10-325 mg per tablet Take 1 tablet by mouth every 8 hours as needed for Pain. 90 tablet 0 08/28/2016 06/27/2022 Discontinued Comment on above: Take 1 tablet by rani th every 8 hours as needed for Pain. amoxicillin 500 mg oral capsule (1 source) Penicillin-cla ss Antibacterial Start: 12-09-2017 AMOXICILLIN 500 MG CAPS 4 capsules to be taken 1 hour prior to procedure AMOXICILLIN [id number] Andre Rosa MD aprepitant 40 mg oral capsule (1 source) Substance P/Neurokinin-1 Receptor Antagonist Start: 03-22-2019 End: 03-22-2019 aprepitant (EMEND) capsule 40 mg onabotulinumtoxina 100 unt injection (10 sources) Acetylcholine Release Inhibitor Start: 08-24-2024 End: 08-24-2024 inject 1 dose by intramuscular injection every 30 days 100 Units, INTRAMUSCULAR, ONCE (UP TO 30 DAYS AMB), 1 dose, On Thu08/24/24 at 1530, This record documents the total dose provided to patient. See progress note for specific locations and amounts administered. REFRIGERATE - Pharmaceutical Waste: Lab Pack - Start: 08-08-2024 End: 09-07-2024 onabotulinum toxin type A 10 0 Units injection (BOTOX) 12 hr buPROPion hydrochloride 100 mg extended release oral tablet (20 sources) Aminoketone Start: 03-10-2018 End: 04-12-2020 take 100 mg by mouth twice daily Bupropion Hcl Discontinued 100 MG PO TWICE A DAY 60 March 04, 2019 3:39pm April 12, 2020 3:11pm take 1 tablet by mouth twice delores ly buPROPion (WELLBUTRIN) 100 MG tablet Take 100 mg by mouth 2 times daily 0 Active ciprofloxacin 500 mg oral tablet (15 sources) Quinolone Antimicrobial Start: 09-02-2023 End: 10-02-2023 take 1 tablet by mouth twice daily Ciprofloxacin Hcl (Cipro) 500 mg tablet Discontinued 500 MG PO TWICE A DAY September 02, 2023 12:00am October 02, 2023 1:36pm Start: 08-23-2019 End: 11-08-2019 take 1 tablet by mouth twice daily Ciprofloxacin Hcl (Cipro) 500 mg tablet Discontinued 500 MG PO TWICE A DAY August 23, 2019 1:00am November 08, 2019 4:05pm Start: 01-20-2019 End: 01-25-2019 take 1 tablet by mouth twice daily Ciprofloxacin Hcl (Cipro) 500 mg tablet Discontinued 500 MG PO TWICE A DAY 14 January 20, 2019 12:00am January 25, 2019 5:51pm dicyclomine hydrochloride 20 mg oral tablet (20 sources) Anticholinergic Start: 03-14-2022 End: 09-24-2022 take 20 mg by mouth twice daily Dicyclomine Discontinued 20 MG PO TWICE A DAY March 14, 2022 12:00am September 24, 2022 5:50pm Comment on above: Take 20 mg by mouth twice daily. DULoxetine 30 mg delayed release oral capsule (3 sources) Serotonin and Norepinephrine Reuptake Inhibitor Start: 10-10-2022 End: 06-02-2023 take 30 mg by mouth once daily Duloxetine Discontinued 30 MG PO daily October 10, 2022 12:00am June 02, 2023 5:24pm famotidine 20 mg oral tablet (1 source) Histamine-2 Receptor Antagonist Start: 03-22-2019 End: 03-22-2019 famotidine (PEPCID) tablet 20 mg 1.5 ml fremanezumab-vfrm 150 mg/ml auto-injector (6 sources) Start: 04-12-2020 End: 06-19-2021 Fremanezumab-Vfrm (Ajovy Autoinjector) 225 mg/1.5 mL auto-injector Discontinued 225 MG SC EVERY MONTH April 12, 2020 12:00am June 19, 2021 4:53pm gabapentin 600 mg oral tablet (20 sources) Anti-epileptic Agent Start: 11-08-2019 End: 04-12-2020 take 900 mg by mouth twice daily Gabapentin Discontinued 900 MG PO TWICE A DAY 270 December 02, 2019 1:08pm April 12, 2020 3:06pm Start: 03-22-2019 gabapentin (NE URONTIN) capsule 300 mg Start: 03-11-2018 End: 11-08-2019 take 900 mg by mouth three times daily Gabapentin Discontinued 900 MG PO THREE TIMES A DAY 135 30 March 04, 2019 3:39pm November 08, 2019 4:07pm Start: 03-10-2018 End: 03-11-2018 take 300 mg by mouth three times daily Gabapentin Discontinued 300 MG PO THREE TIMES A DAY March 10, 2018 12:00am March 11, 2018 1:54pm Start: 05-22-2016 End: 05-21-2022 take 1.5 tablets by mouth three times daily gabapentin (NEURONTIN) 600 mg tablet Indications: Migraine without aura and without status migrainosus, not intractable Take 1.5 tablets by mouth three times daily. 135 tablet 2 05/22/2016 05/21/2022 Discontinued (Discontinued by Patient) take 1 tablet by rani th three times daily gabapentin (NEURONTIN) 600 mg tablet Take 600 mg by mouth three times a day. Active Comment on above: Take 1.5 tablets by mouth three times daily. 1 ml galcanezumab-gnlm 120 mg/ml auto-injector (18 sources) Start: 2018 End: 2018 Galcanezumab-Gnlm (Emgality Pen) 120 mg/mL pen injector Discontinued 120 MG SC EVERY MONTH September 09, 2018 12:00am January 25, 2019 5:55pm hydrOXYzine hydrochloride 10 mg oral tablet (18 sources) Antihistamine Start: 2019 End: 2020 take 10 mg by mouth three to four times daily Hydroxyzine Hcl Discontinued 10 MG PO 3 to 4 times per day 120 November 18, 2019 2:24pm April 12, 2020 3:19pm 2 ml ketorolac tromethamine 30 mg/ml injection (2 sources) Nonsteroidal Anti-inflammatory Drug, Cyclooxygenase Inhibitor Start: 2021 End: 2021 inject 60 mg by intramuscular injection once ketorolac 60 mg/2 mL intramuscular solution Discontinued 60 MG SC ONCE 2 August 09, 2021 6:47pm August 09, 2021 6:47pm Lidocaine (2 sources) Antiarrhythmic, Amide Local Anesthetic Start: 2023 End: 2023 lidocaine 10 mg/mL (1 %) injection (XYLOCAINE) Start: 03-22-2019 End: 03-22-2019 lidocaine PF 1 % injection 1 mL meloxicam 15 mg oral tablet (20 sources) Nonsteroidal Anti-inflammatory Drug Start: 06-03-2019 End: 04-12-2020 take 1 tablet by mouth once daily Meloxicam (Mobic) 15 mg tablet Discontinued 15 MG PO daily June 03, 2019 1:00am April 12, 2020 3:05pm take 1 tablet by mouth once marie y meloxicam (MOBIC) 7.5 mg tablet Take 7.5 mg by mouth once daily. Active mirtazapine 15 mg oral tablet (20 sources) Start: 03-10-2018 End: 08-09-2021 take 15 mg by mouth at bedtime Mirtazapine Discontinued 15 MG PO AT BEDTIME March 18, 2021 11:59am August 09, 2021 7:13pm 2 ml ondansetron 2 mg/ml injection (1 source) Serotonin-3 Receptor Antagonist Start: 03-22-2019 End: 03-22-2019 ondansetron (ZOFRAN) injection 4 mg oxyCODONE hydrochloride 5 mg oral tablet (2 sources) Opioid Agonist Start: 06-08-2022 End: 06-11-2022 take 1 tablet by mouth every six hours as needed for pain oxyCODONE IR (ROXICODONE) 5 mg immediate release tablet Indications: Incisional hernia, without obstruction or gangrene Take 1 tablet by mouth every 6 hours as needed for pain for up to 3 days. 12 tablet 0 06/08/2022 06/11/2022 Start: 03-22-2019 End: 03-22-2019 oxyCODONE (ROXICODONE) immed iate release tablet 5 mg Comment on above: Take 1 tablet by rani th every 6 hours as needed for pain for up to 3 days. phenazopyridine hydrochloride 200 mg oral tablet (1 source) Start: 03-22-2019 End: 03-22-2019 phenazopyridine (PYRIDIUM) tablet 200 mg Start: 03-22-2019 End: 03-22-2019 phenazopyridine (PYRIDIUM) t ablet 200 mg pregabalin 50 mg oral capsule (20 sources) Start: 03-10-2018 End: 03-11-2018 take 1 capsule by mouth three times daily Pregabalin (Lyrica) 50 mg capsule Discontinued 50 MG PO THREE TIMES A DAY March 10, 2018 12:00am March 11, 2018 1:57pm take 1 capsule by mouth twice da varinder pregabalin (LYRICA) 50 mg capsule Take 50 mg by mouth two times a day. Active promethazine hydrochloride 12.5 mg oral tablet (20 sources) Phenothiazine Start: 08-23-2019 End: 08-23-2019 inject 25 mg by intramuscular injection once promethazine 25 mg/mL injection solution Discontinued 25 MG IM ONCE 1 August 23, 2019 5:58pm August 23, 2019 6:32pm Start: 03-22-2019 End: 03-22-2019 promethazine (PHENERGAN) inj ection 6.25 mg Start: 03-10-2018 End: 09-24-2022 take 12.5 mg by mouth every four hours Promethazine Discontinued 12.5 MG PO Q4H June 19, 2021 4:55pm September 24, 2022 5:55pm Start: 10-02-2015 take 1 tablet by rani th every four hours as needed for nausea promethazine (PHENERGAN) 25 mg tablet Indications: Migraine without aura and without status migrainosus, not intractable Take 1 tablet by mouth every 4 hours as needed for Nausea/Vomiting. 30 tablet 5 10/02/2015 Active take 1 tablet by rani th every six hours as needed for nausea promethazine (PHENERGAN) 12.5 MG tablet Take 12.5 mg by mouth every 6 hours as needed for Nausea 0 Active Comment on above: Take 1 tablet by rani th every 4 hours as needed for Nausea/Vomiting. RABEprazole sodium 20 mg delayed release oral tablet (15 sources) Proton Pump Inhibitor Start: 09-02-19 End: 05-21-20 take 1 tablet by mouth once daily Rabeprazole (Aciphex) 20 mg tablet,delayed release (DR/EC) Discontinued 20 MG PO DAILY April 12, 2020 3:15pm December 20, 2020 6:40pm Comment on above: Take 20 mg by mouth once daily. raNITIdine 150 mg oral tablet (3 sources) Histamine-2 Receptor Antagonist Start: 01-15-20 End: 05-21-20 take 1 tablet by mouth twice daily ranitidine (ZANTAC) 150 mg tablet Take 1 tablet by mouth twice daily. 180 tablet 0 01/14/2017 05/21/2022 Discontinued (Discontinued by Patient) Comment on above: Take 1 tablet by rani th twice daily. sucralfate 1000 mg oral tablet (20 sources) Aluminum Complex Start: 03-14-20 End: 09-25-19 take 1 g by mouth twice daily Sucralfate Discontinued 1 GM PO TWICE A DAY March 14, 2022 12:00am September 24, 2022 5:52pm take 1 tablet by rani th once daily at bedtime sucralfate (CARAFATE) 1 gram tablet Take 1 g by mouth daily at bedtime. Active Comment on above: Take 1 g by mouth da varinder at bedtime. SUMAtriptan 100 mg oral tablet (20 sources) Serotonin-1b and Serotonin-1d Receptor Agonist Start: 03-10-2018 End: 09-24-2022 take 1 tablet by mouth once daily as needed Sumatriptan Succinate (Imitrex) 100 mg tablet Discontinued 100 MG PO DAILY June 19, 2021 4:55pm September 24, 2022 5:55pm 1 at the onset of the h/a then repeat x1 prn max 200 mg /24 hrs Start: 08-20-2016 take 1 tablet by rani th every two hours as needed SUMAtriptan (IMITREX) 100 mg tablet Take 1 tablet by mouth as needed. at onset of headache.May repeat after 2 hours. 9 tablet 5 08/20/2016 Active Comment on above: Take 1 tablet by rani th as needed. at onset of headache.May repeat after 2 hours. topiramate 100 mg oral tablet (20 sources) Anti-epileptic Agent Start: 8 End: 8 take 100 mg by mouth twice daily Topiramate Discontinued 100 MG PO TWICE A DAY March 10, 2018 12:00am March 11, 2018 2:00pm Start: 06-11-2017 End: 03-14-2022 take 100 mg by mouth twice daily Topiramate Discontinued 100 MG PO TWICE A DAY 180 September 17, 2021 6:03pm March 14, 2022 3:05pm traMADol hydrochloride 50 mg oral tablet (20 sources) Opioid Agonist Start: 08-09-2021 End: 06-02-2023 take 100 mg by mouth three times daily Tramadol Discontinued 100 MG PO THREE TIMES A DAY 180 September 24, 2022 5:55pm June 02, 2023 5:26pm Start: 04-12-2020 End: 08-09-2021 take 50 mg by mouth three times daily Tramadol Discontinued 50 MG PO THREE TIMES A DAY 90 December 20, 2020 6:44pm August 09, 2021 7:22pm Start: 03-11-2018 End: 04-12-2020 take 50 mg by mouth every six hours Tramadol Discontinued 50 MG PO EVERY 6 HOURS 120 August 20, 2018 3:45pm March 04, 2019 3:43pm Start: 03-10-2018 End: 03-11-2018 take 50 mg by mouth three times daily Tramadol Discontinued 50 MG PO THREE TIMES A DAY March 10, 2018 12:00am March 11, 2018 2:01pm Start: 06-11-2017 TRAMADOL HCL 5 0 MG TABS one tab 4 times a day as needed TRAMADOL HCL [id number] Andre Rosa MD take 1 tablet by rani th every eight hours as needed traMADol (ULTRAM) 50 mg tablet Take 50 mg by mouth every 8 hours as needed for pain. Active Comment on above: Take 50 mg by mouth as needed. Take 50 mg by mouth every 8 hours as needed for pain. traZODone hydrochloride 50 mg oral tablet (6 sources) Serotonin Reuptake Inhibitor Start: 2017 End: 2017 take 50 mg by mouth three times daily Trazodone Discontinued 50 MG PO THREE TIMES A DAY March 10, 2018 12:00am March 11, 2018 2:01pm triamcinolone acetonide 40 mg/ml injectable suspension (2 sources) Corticosteroid Start: 2021 End: 2021 inject 60 mg by intramuscular injection once triamcinolone acetonide 40 mg/mL suspension for injection Discontinued 60 MG IM ONCE 1.5 August 09, 2021 6:47pm August 09, 2021 6:47pm zolpidem tartrate 5 mg oral tablet (20 sources) gamma-Aminobutyric Acid-ergic Agonist Start: 2015 End: 2022 take 5 mg by mouth at bedtime Zolpidem Discontinued 5 MG PO AT BEDTIME 30 August 20, 2018 3:45pm March 04, 2019 3:43pm Start: 02-21-2016 take 1 tablet by rani th every twenty-four hours as needed zolpidem (AMBIEN) 5 mg tablet [The details of the medication are not available because there are pending changes by a home health clinician.] 30 tablet 2 02/21/2016 Active Comment on above: Take 1 tablet by rani th at bedtime as needed. [The details of the medication are not available because there are pending changes by a home health clinician.] Problems Active Problems Problem Classification Problem Date Documented Da te Episodic/Chronic Abdominal hernia (20 sources) Incisional hernia; Translations: [Incisional hernia without obstruction or gangrene] Onset: 04-21-2011 Resolved: 01-30-2015 Episodic Abdominal pain (20 sources) Epigastric pain; Translations: [Epigastric pain] Onset: 10-02-2016 Resolved: 10-04-2016 01-06-2023 Episodic Anxiety disorders (20 sources) Anxiety disorder; Translations: [Anxiety disorder, unspecified] Onset: 08-22-2024 03-13-2015 Chronic Biliary tract disease (20 sources) Cholangiectasis; Translations: [Other specified diseases of biliary tract] Onset: 10-06-2016 10-06-2016 Chronic Chronic obstructive pulmonary disease and bronchiectasis (20 sources) Bronchitis; Translations: [Bronchitis, not specified as acute or chronic] Onset: 08-22-2024 08-23-2019 Episodic Complication of device; implant or graft (7 sources) Infection and inflammatory reaction due to internal left knee prosthesis, initial encounter; Translations: [Pain due to knee joint prosthesis] Onset: 02-19-2017 05-11-2017 Episodic Conditions associated with dizziness or vertigo (20 sources) Dizziness; Translations: [Dizziness and giddiness] Onset: 08-22-2024 06-19-2021 Episodic Disorders of lipid metabolism (2 sources) Mixed hyperlipidemia; Translations: [Hyperlipidemia, unspecified] Onset: 07-27-2024 Chronic Esophageal disorders (20 sources) Gastro-esophageal reflux disease with esophagitis; Translations: [Gastroesophageal reflux disease with esophagitis] Onset: 04-21-2011 Resolved: 03-13-2015 03-13-2015 Chronic External Injury - Adverse effects of medical care (1 source) Other medical procedures as the cause of abnormal reaction of the patient, or of later complication, without mention of misadventure at the time of the procedure; Translations: [OTH MED PROC ABNORM RXN/] Onset: 02-19-2017 Genitourinary symptoms and ill-defined conditions (20 sources) Mixed urinary incontinence; Translations: [Mixed incontinence] Onset: 02-01-2024 02-01-2024 Chronic Genitourinary symptoms and ill-defined conditions (20 sources) Dysuria; Translations: [Dysuria] Onset: 02-29-2024 01-25-2019 Episodic Headache; including migraine (20 sources) Migraine without aura, not refractory ; Translations: [Migraine without aura, not intractable, without status migrainosus] Onset: 04-23-2011 Resolved: 03-13-2015 03-13-2015 Chronic Malaise and fatigue (20 sources) Fatigue; Translations: [Other fatigue] Onset: 08-22-2024 06-19-2021 Episodic Menopausal disorders (20 sources) Decreased estrogen level; Translations: [Other primary ovarian failure] Onset: 05-18-2023 08-09-2021 Chronic Mood disorders (6 sources) Depressive disorder; Translations: [Depression] 03-11-2018 Chronic Nausea and vomiting (20 sources) Nausea and vomiting; Translations: [Nausea with vomiting, unspecified] Onset: 10-04-2016 Resolved: 10-04-2016 06-08-2022 Episodic Nonmalignant breast conditions (20 sources) Breast lump; Translations: [Unspecified lump in the left breast, unspecified quadrant] Onset: 10-27-2023 09-30-2023 Episodic Nutritional deficiencies (20 sources) Vitamin D deficiency; Translations: [Vitamin D deficiency, unspecified] Onset: 10-03-2016 10-03-2016 Chronic Open wounds of head; neck; and trunk (17 sources) Open wound; Translations: [Wound drainage] Onset: 08-22-2024 Episodic Osteoarthritis (20 sources) Unilateral primary osteoarthritis, left knee; Translations: [Unilateral primary osteoarthritis, right knee] Onset: 03-18-2016 01-28-2018 Chronic Osteoporosis (20 sources) Menopausal osteoporosis; Translations: [Age-related osteoporosis without current pathological fracture] Onset: 08-22-2024 08-09-2021 Chronic Other acquired deformities (20 sources) Scoliosis of thoracic spine; Translations: [Other forms of scoliosis, thoracic region] Chronic Other connective tissue disease (20 sources) History of total knee arthroplasty; Translations: [Presence of right artificial knee joint] Onset: 05-11-2017 05-11-2017 Chronic Other connective tissue disease (1 source) Pain in right hand; Translations: [Right hand pain] Onset: 11-02-2024 Episodic Other diseases of bladder and urethra (20 sources) Overactive bladder; Translations: [Overactive bladder] Onset: 07-05-2024 09-24-2022 Chronic Other diseases of bladder and urethra (1 source) Overactive bladder; Translations: [OAB (overactive bladder)] Onset: 08-24-2024 Chronic Other gastrointestinal disorders (20 sources) Irritable bowel syndrome; Translations: [Irritable bowel syndrome without diarrhea] Onset: 08-06-2016 08-06-2016 Chronic Other gastrointestinal disorders (20 sources) Dysphagia; Translations: [Dysphagia, unspecified] Episodic Other gastrointestinal disorders (3 sources) Heartburn; Translations: [Heartburn] 10-25-2024 Episodic Other gastrointestinal disorders (1 source) Heartburn; Translations: [Heartburn] Onset: 10-25-2024 Episodic Other injuries and conditions due to external causes (2 sources) Local infection of wound; Translations: [Other injury of unspecified body region, initial encounter] Episodic Other injuries and conditions due to external causes (10 sources) Open wound with complication; Translations: [Other injury of unspecified body region, initial encounter] Onset: 08-22-2024 09-01-2023 Episodic Other lower respiratory disease (20 sources) Rib pain; Translations: [Pleurodynia] Onset: 08-22-2024 08-09-2021 Episodic Other non-traumatic joint disorders (6 sources) Pain in right knee; Translations: [Pain in both knees] 03-11-2018 Episodic Other non-traumatic joint disorders (20 sources) Joint pain; Translations: [Pain in unspecified joint] Onset: 08-22-2024 03-14-2022 Episodic Other non-traumatic joint disorders (3 sources) Pain in left shoulder; Translations: [Pain in joint, shoulder region] Onset: 11-03-2024 11-03-2024 Episodic Other nutritional; endocrine; and metabolic disorders (20 sources) Body mass index 30+ - obesity; Translations: [Obesity, unspecified] Onset: 10-02-2015 10-02-2015 Chronic Other nutritional; endocrine; and metabolic disorders (20 sources) Obese class I; Translations: [Obesity, unspecified] Onset: 06-06-2022 06-08-2022 Chronic Other skin disorders (20 sources) Eruption; Translations: [Rash and other nonspecific skin eruption] Onset: 08-22-2024 03-14-2022 Episodic Pancreatic disorders (not diabetes) (20 sources) Chronic pancreatitis; Translations: [Other chronic pancreatitis] Onset: 02-15-2016 08-22-2024 Chronic Pancreatic disorders (not diabetes) (6 sources) Other specified diseases of pancreas; Translations: [Pancreatic duct disorder] Onset: 09-08-2024 09-14-2024 Episodic Prolapse of female genital organs (1 source) Cystocele; Translations: [Cystocele, unspecified] 02-01-2024 Chronic Residual codes; unclassified (20 sources) Insomnia; Translations: [Insomnia, unspecified] Onset: 08-22-2024 06-03-2019 Episodic Residual codes; unclassified (20 sources) Edema of lower leg ; Translations: [Localized edema] Onset: 08-22-2024 09-01-2023 Episodic Residual codes; unclassified (1 source) Disorientation, unspecified; Translations: [Confusion] Onset: 11-02-2024 Episodic Rheumatoid arthritis and related disease (20 sources) Seronegative rheumatoid arthritis of multiple sites; Translations: [Rheumatoid arthritis without rheumatoid factor, multiple sites] Onset: 08-22-2024 08-04-2018 Chronic Spondylosis; intervertebral disc disorders; other back problems (20 sources) Lumbosacral spondylosis without myelopathy; Translations: [Spondylosis without myelopathy or radiculopathy, lumbosacral region] Onset: 10-28-2017 08-22-2024 Chronic Spondylosis; intervertebral disc disorders; other back problems (20 sources) Low back pain; Translations: [Chronic low back pain] Onset: 04-02-2017 Resolved: 05-21-2022 04-02-2017 Episodic Thyroid disorders (20 sources) Acquired hypothyroidism; Translations: [Hypothyroidism, unspecified] Onset: 07-05-2024 Chronic Unclassified (2 sources) Pain in left lower leg / M79.662(ICD-10) Onset: 12-03-2017 Unclassified (2 sources) Pain in unspecified knee / M25.569(ICD-10) Onset: 12-03-2017 Unclassified (6 sources) Transformed migraine; Translations: [Chronic migraine] 03-11-2018 Past or Other Problems Problem Classification Problem Date Documented Da te Episodic/Chronic Calculus of urinary tract (20 sources) Kidney stone; Translations: [Calculus of kidney] Onset: 02-09-2024 02-09-2024 Episodic Cardiac dysrhythmias (20 sources) Tachycardia; Translations: [Tachycardia, unspecified] Onset: 04-23-2011 Resolved: 04-23-2011 Episodic Complications of surgical procedures or medical care (20 sources) Postoperative abdominal wall wound abscess; Translations: [Infection following a procedure, other surgical site, initial encounter] Onset: 06-27-2022 06-27-2022 Episodic Diabetes mellitus without complication (20 sources) Metabolic stress hyperglycemia; Translations: [Hyperglycemia, unspecified] Onset: 04-23-2011 Resolved: 04-23-2011 Episodic Diseases of white blood cells (20 sources) Leukocytosis; Translations: [Elevated white blood cell count, unspecified] Onset: 06-27-2022 Resolved: 07-02-2022 06-27-2022 Chronic Fluid and electrolyte disorders (20 sources) Hyponatremia; Translations: [Hypo-osmolality and hyponatremia] Onset: 05-18-2023 Resolved: 05-20-2023 05-20-2023 Episodic Nutritional deficiencies (20 sources) Cobalamin deficiency; Translations: [Deficiency of other specified B group vitamins] Onset: 12-14-2023 06-19-2021 Episodic Other connective tissue disease (20 sources) Fibromyalgia; Translations: [Fibromyalgia] Onset: 07-05-2024 01-30-2015 Episodic Other gastrointestinal disorders (20 sources) Diarrhea; Translations: [Diarrhea, unspecified] Onset: 10-04-2016 Resolved: 10-04-2016 10-04-2016 Episodic Other injuries and conditions due to external causes (20 sources) Motion sickness; Translations: [Motion sickness, initial encounter] Onset: 01-30-2015 01-30-2015 Episodic Other nervous system disorders (20 sources) Postoperative pain ; Translations: [Other acute postprocedural pain] Onset: 04-22-2011 Resolved: 05-02-2011 06-17-2021 Episodic Other non-traumatic joint disorders (2 sources) Pain in unspecified knee; Translations: [Knee pain] Onset: 04-03-2017 04-03-2017 Episodic Other screening for suspected conditions (not mental disorders or infectious disease) (20 sources) Patient encounter status; Translations: [Encounter for screening mammogram for malignant neoplasm of breast] Onset: 04-23-2011 Resolved: 05-02-2011 12-20-2020 Episodic Pleurisy; pneumothorax; pulmonary collapse (20 sources) Atelectasis; Translations: [Atelectasis] Onset: 04-22-2011 Resolved: 04-27-2011 Episodic Residual codes; unclassified (20 sources) Past history of procedure; Translations: [Other specified postprocedural states] Onset: 10-06-2016 10-06-2016 Episodic Residual codes; unclassified (20 sources) History of hernia repair; Translations: [Other specified postprocedural states] Onset: 06-07-2022 Episodic Residual codes; unclassified (20 sources) Memory impairment; Translations: [Other amnesia] Onset: 10-07-2023 09-01-2023 Episodic Residual codes; unclassified (20 sources) Disorder of digestive tract; Translations: [Acquired absence of other specified parts of digestive tract] Onset: 02-15-2016 08-22-2024 Episodic Skin and subcutaneous tissue infections (20 sources) Cellulitis of left hand; Translations: [Cellulitis of left upper limb] Onset: 05-18-2023 06-07-2023 Episodic Unclassified (1 source) Pain in left lower leg; Translations: [Pain in left lower leg] Onset: 12-03-2017 Unclassified (1 source) Problem Unclassified (4 sources) CERVICLE NECK FUSION DDD DISEASE 01-19-2022 Unclassified (4 sources) DDD OF THE LOWER SPINE 01-19-2022 Unclassified (4 sources) DOUBLE BUNIONECTOMY 01-19-2022 Unclassified (4 sources) ERCP 01-19-2022 Unclassified (4 sources) TOTAL KNEE ARTHROPLASTY R 01-19-2022 Unclassified (20 sources) Drug therapy finding; Translations: [DVT prophylaxis] Onset: 04-23-2011 Resolved: 05-02-2011 06-17-2021 Urinary tract infections (20 sources) Cystitis; Translations: [Cystitis, unspecified without hematuria] Onset: 09-18-2023 01-25-2019 Episodic Results Test Name Value Interpretation Reference Range Facility [id number] 11-04-2024 [id number] HNO ID: [id number] Author: ALBERTO CHILDRESS RN Service: ? Author Type: Registered Nurse Type: [id number] Filed: 11/04/2024 14:45 Note Text: [phone] Marvin Lennon specialist (Infectious Diseases doctor) Normal [facility] ALKALINE PHOSPHATASE ISOENZY MES (P)on 11-04-2024 ALK PHOS BONE % 25.6 % Normal 10.7-68.3 [facility] Comment on above: Order Comment: Speci men Type: BLOOD SPECIMENOrdering Facility: [facility] Address: [address] [place] [address] Performed By: #### A LKISOP ####[facility] LABCLIA [id number] [address] [address] [place] [facility] ALK PHOS LIVER % 74.4 % Normal 26.0-86.2 [facility] Comment on above: Order Comment: Speci men Type: BLOOD SPECIMENOrdering Facility: [facility] Address: [address] [place] [address] Performed By: #### A LKISOP ####[facility] LABCLIA [id number] [place] [id number] [facility] BONE FRACTION 30.0 U/L Normal 12.9-52.6 [facility] Comment on above: Order Comment: Speci men Type: BLOOD SPECIMENOrdering Facility: [facility] Address: [address] [place] [address] Performed By: #### A LKISOP ####[facility] LABCLIA [id number] [address] [address] [place] INTESTINE FRACTION 0.0 U/L Normal 0.0-16.3 [facility] Comment on above: Order Comment: Speci men Type: BLOOD SPECIMENOrdering Facility: [facility] Address: [address] [place] [address] Performed By: #### A LKISOP ####[facility] LABCLIA [id number] [address] [address] [facility] OF [place] LIVER FRACTION 87.0 U/L High 16.0-69.3 [facility] Comment on above: Order Comment: Speci men Type: BLOOD SPECIMENOrdering Facility: [facility] Address: [address] [place] [address] Performed By: #### A LKISOP ####[facility] LABCLIA [id number] [place] [id number] [place] Neutrophils/100 WBC (Bld) 0.0 % Normal 0.0-24.2 [facility] Comment on above: Order Comment: Speci men Type: BLOOD SPECIMENOrdering Facility: [facility] Address: [address] [place] [address] Performed By: #### A LKISOP ####[facility] LABIA [id number] [place] [address] [place] ALP SerPl-cCncon 11-04-2024 ALP [Catalytic activity/Vol] 117 U/L Normal 34-123 [facility] Comment on above: Order Comment: Speci men Type: BLOOD SPECIMENOrdering Facility: [facility] Address: [address] [place] [address] Performed By: #### [id number] ####[facility] [id number] [address] [place] CNDSon 11-04-2024 CNDS HNO ID: [id number] Author: MENA DOUGLASS MD Service: Hospital Medicine Author Type: Physician Type: Discharge Summary Filed: 11/04/2024 16:52 Note Text: DISCHARGE NOTE (Patient Admitted Less than 48 Hours) SERVICE DAY: 11/04/2024 ADMISSION DATE: 11/02/2024 This is a 69 year old female who presents with shoulder pain and hand pain due to arthritis. Found to have UTI - tx with keflex, seen by ID for recurrent UTIs - they don't rec chronic prophylaxis. Stable for discharge home today. Physical exam: BP 131/82 Pulse 104 Temp 36.8 ?C (98.2 ?F) (Oral) Resp 18 Ht 154.9 cm (5' 1) Wt 73.9 kg (163 lb) SpO2 93% BMI 30.80 kg/m? General - no distress, alert and oriented x 3 Lungs - clear to auscultation b/l CVS- RRR, normal heart sounds, no M/R/G Abd- soft, nontender, BS present MS - no joint swelling/tenderness, good ROM Ext - no edema DISCHARGE MEDICATIONS: Medication List CHANGE how you take these medications cephALEXin 500 mg capsule Commonly known as: KEFLEX Take 1 capsule by mouth three times a day for 3 days. What changed: medication strength how much to take when to take this levothyroxine 75 mcg tablet Commonly known as: SYNTHROID Take 1 tablet by mouth once daily. What changed: medication strength when to take this sertraline 50 mg tablet Commonly known as: ZOLOFT Take 1 tablet by mouth two times a day. What changed: how much to take when to take this CONTINUE taking these medications atorvastatin 10 mg tablet Commonly known as: LIPITOR gabapentin 600 mg tablet Commonly known as: NEURONTIN LANSOPRAZOLE ORAL MULTIVITAMIN 50 PLUS Tab Generic drug: Tgvgrjouipnft-Euoqulht-T utein MYRBETRIQ ORAL promethazine 25 mg tablet Commonly known as: PHENERGAN Take 1 tablet by mouth every 4 hours as needed for Nausea/Vomiting. SUMAtriptan 100 mg tablet Commonly known as: IMITREX Take 1 tablet by mouth as needed. at onset of headache.May repeat after 2 hours. traMADol 50 mg tablet Commonly known as: ULTRAM STOP taking these medications folic acid 1 mg tablet ibuprofen 600 mg tablet Commonly known as: MOTRIN LORazepam 1 mg tablet Commonly known as: ATIVAN meloxicam 7.5 mg tablet Commonly known as: MOBIC PROLIA 60 mg/mL Generic drug: denosumab sucralfate 1 gram tablet Commonly known as: CARAFATE Where to Get Your Medications These medications were sent to [facility] [address] [place] [address] Hours: Thursday-Thursday: 7am-7pm, Sat: 9am-1pm cephALEXin 500 mg capsule FINAL DIAGNOSIS: UTI. Hand arthritis. Hypothyroidism. Time spent 25 min SIGNATURE: Mena Douglass MD [facility] ALLIED HEALTHon 11-03-2024 ALLIED HEALTH HNO ID: [id number] Author: MERI JARA RT(R) Service: ? Author Type: Technologist Type: Allied Health Filed: 11/03/2024 04:35 Note Text: Radiology Service Progress Note DATE OF SERVICE: November 03, 2024 TIME: 4:34 AM PATIENT IDENTITY VERIFICATION COMPLETED USING TWO (2) STANDARD IDENTIFIERS: Name and Date of confirmed by patient verbally and Name and Date of confirmed by identification band. FALL SCREENING: Has the patient had 2 falls in the last year or 1 fall with injury or currently using an Ambulatory Assistive Device (Walker, Cane, Wheelchair, Crutches, etc.)? Emergency Room Patient: Screened in ED PATIENT GENDER DATA: Assigned female at . status: : No status: NO. PATIENT RELEVANT IMPLANT DATA REVIEWED: Not Applicable PATIENT PRESENTS WITH AN IMPLANTABLE OR ATTACHED CARPENTRY SPECIALIST: No ALLERGIES: Reviewed and unchanged CONTRAST ALLERGY: NO. EXAM: CT -CONTRAST INDUCED NEPHROPATHY RISK FACTORS: Patient age > 60 years CREATININE: Creatinine Date Value Ref Range Status 11/02/2024 0.74 0.58 - 0.96 mg/dL Final 09/08/2024 0.82 0.58 - 0.96 mg/dL Final 08/24/2024 0.82 0.58 - 0.96 mg/dL Final Estimated Glomerular Filtration Rate Date Value Ref Range Status 11/02/2024 88 >=60 mL/min/1.73m? Final Comment: Estimated Glomerular Filtration Rate (eGFR) is calculated using the 2020 CKD-EPI creatinine equation. This equation utilizes serum creatinine, sex, and age as parameters. The creatinine assay has traceable calibration to isotope dilution-mass spectrometry. Refer to KDIGO guidelines for clinical interpretation. In patients with unstable renal function, e.g. those with acute kidney injury, the eGFR may not accurately reflect actual GFR. eGFR- Date Value Ref Range Status 08/10/2021 >60 Final P.O.C.T. RESULTS: N/A November 03, 2024 TREATMENT: N/A PERIPHERAL IV DATA: Inpatient - refer to LDA documentation RADIOLOGY DEPARTMENT: CT; Exam(s) Completed: Abdomen/Pelvis SIGNATURE: RT Buzz(R) PATIENT NAME: Tevin Villagomez DATE: November 03, 2024 TIME: 4:34 AM [facility] ALLIED HEALTH HNO ID: [id number] Author: AYLEEN CANO RT(R) Service: ? Author Type: Technologist Type: Allied Health Filed: 11/03/2024 02:40 Note Text: Radiology Service Progress Note PATIENT NAME: Tevin Villagomez DATE OF SERVICE: November 03, 2024 TIME: 2:39 AM PATIENT IDENTITY VERIFICATION COMPLETED USING TWO (2) IDENTIFIERS: Name and Date of confirmed by patient verbally and Name and Date of confirmed by identification band. FALL SCREENING: Has the patient had 2 falls in the last year or 1 fall with injury or currently using an Ambulatory Assistive Device (Walker, Cane, Wheelchair, Crutches, etc.)? Emergency Room Patient: Screened in ED PATIENT GENDER DATA: Assigned female at . status: : No status: NO. PATIENT RELEVANT IMPLANT DATA REVIEWED: Not Applicable PATIENT PRESENTS WITH AN IMPLANTABLE OR ATTACHED CARPENTRY SPECIALIST: No RADIOLOGY DEPARTMENT: General X-ray: Exam(s) Completed: Upper Extremity X-Ray(s): Shoulder, AP / TRUE AP / AXILLARY left and Hand, right PERIPHERAL IV DATA: Not applicable SIGNED BY: RT Erika(R) November 03, 2024 2:39 AM [facility] 11-03-2024 [facility] -------- TEVIN VILLAGOMEZ ([id number]) 1955 F Date Time Provider Department 11/03/24 ISMAEL MCCONNELL During your visit today, we recorded the following information about you: Roxana Robert, RN 11/03/2024 10:31 AM Signed ----- Message from Ismael Mcconnell MD sent at 11/03/2024 10:25 AM EDT ----- She is scheduled for EUS today. Presented to [facility] this morning with lower abdominal pain and UTI. She is admitted to the hospital. CT-scan AP negative except for dilated PD. Roxana: Update me on her condition. Will decide on when to schedule EGD+Linear EUS based on her condition. MD Shakeel Beckman Abbey C, PLANE TENDER.CLERK OF SCALES 11/03/2024 4:01 PM Signed Barak, Saw pt at bedside today with her daughter for GI consult. Both feel her scopes with Dr. Mcconnell can wait until she is discharged to reschedule please. She is also requesting updated colonoscopy but likely will pursue through Dr. Ojeda. We are signing off. Thanks, Ismael Thomas MD 11/06/2024 10:54 PM Signed Patient is discharged from [facility] 11/04/2024. Admitted with UTI and treated with Keflex. Was seen by ID for recurrent UTIs and they do not recommend chronic prophylaxis. Schedule EGD with linear EUS 1 month. MD Yesica Beckman Dawn, ASIM 11/07/2024 10:28 AM Addendum Ruth, please schedule EUS as indicated below. Thank you, ASIM Mujica Adm Ruth Vu II 11/07/2024 11:24 AM Signed Spoke with patient's granddaughter, Haydee, rescheduled EUS , 12/01/2024 at [facility]. Roxana: Patient's granddaughter, Haydee is helping her with her appointments, asking if she can take Aleve up to day prior EUS and questioning when she is due to colonoscopy and can Dr. Mcconnell also follow her for GI. Thank you. Ruth Hartley Adm Asst II Roxana Robert RN 11/07/2024 2:34 PM Signed Attempted to call Haydee not available. Spoke with pt's dtr Angelica regarding colonoscopy. She states Haydee was just truing to consolidate pt's doctors. Advised pt was only referred to us for EUS and that [facility] (pt's primary GI) is much closer to them as they live in [place]. She verbalized understanding and agreed. Dr. Mcconnell, please see msg below and advise regarding Aleve. Thank you, ASIM Mujica Khaled, MD 11/08/2024 10:00 AM Signed She can take Aleve till the day of the procedure. Ismael Mcconnell MD Allergies As of Date: 11/03/2024 (No Known Allergies) Date Reviewed: 11/03/2024 Reviewed by: Windy Coker RN - Fully Assessed Reason for Visit: Patient Update [1234] Cmt: Admitted for UTI, needs EUS rescheduled Prescriptions as of 11/09/2024 - sertraline (ZOLOFT) 50 mg tablet Take 1 tablet by mouth two times a day. - levothyroxine (SYNTHROID) 75 mcg tablet Take 1 tablet by mouth once daily. - LANSOPRAZOLE ORAL Take 30 mg by mouth every evening. - mirabegron (MYRBETRIQ ORAL) Take 25 mg by mouth every evening. - Iklqknkjfwnzo-Dgutqzpy-Z utein (MULTIVITAMIN 50 PLUS) tab Take 1 tablet by mouth once daily. - atorvastatin (LIPITOR) 10 mg tablet Take 1 tablet by mouth every afternoon. - gabapentin (NEURONTIN) 600 mg tablet Take 600 mg by mouth three times a day. - traMADol (ULTRAM) 50 mg tablet Take 50 mg by mouth every 8 hours as needed for pain. - SUMAtriptan (IMITREX) 100 mg tablet Take 1 tablet by mouth as needed. at onset of headache.May repeat after 2 hours. - promethazine (PHENERGAN) 25 mg tablet Take 1 tablet by mouth every 4 hours as needed for Nausea/Vomiting. Problem List As Of Date 11/03/2024 Noted Resolved Gastroesophageal reflux disease [K21.9] 04/21/2011 Laparotomy, Excision of esophageal leiomyoma an*04/21/2011 01/30/2015 Atelectasis [J98.11] 04/22/2011 04/27/2011 Postoperative pain [G89.18] 04/22/2011 05/02/2011 Migraine [G43.909] 04/23/2011 03/13/2015 Stress hyperglycemia [R73.9] 04/23/2011 04/23/2011 Tachycardia [R00.0] 04/23/2011 04/23/2011 DVT prophylaxis [XDB9093] 04/23/2011 05/02/2011 Discharge Planning [Z71.89] 04/23/2011 05/02/2011 GERD (gastroesophageal reflux disease) [K21.9] 03/13/2015 Neck pain [M54.2] 05/21/2022 Motion sickness [T75.3XXA] 01/30/2015 Osteoarthritis [M19.90] 03/18/2016 Fibromyalgia [M79.7] 07/05/2024 Migraine without aura and without status migrai*03/13/2015 Gastroesophageal reflux disease with esophagiti*03/13/2015 Anxiety disorder [F41.9] 08/22/2024 Obesity (BMI 30-39.9) [E66.9] 10/02/2015 Irritable bowel syndrome [K58.9] 08/06/2016 Pain of upper abdomen [R10.10] 10/02/2016 Malnutrition of moderate degree (HCC) [E44.0] 10/03/2016 Nausea and vomiting [R11.2] 10/04/2016 Diarrhea [R19.7] 10/04/2016 10/04/2016 Dilated bile duct [K83.8] 10/06/2016 S/P ERCP [Z98.890] 10/06/2016 Hypothyroidism [E03.9] 07/05/2024 Levoscoliosis of thoracic spine [M41.84] Dysphagia [R13.10] Incisional hernia, without obstruction or gangr* (more content not included)... Normal [facility] CONSULTon 11-03-2024 CONSULT HNO ID: [id number] Author: Rufina VARGHESE MD Service: Infectious Disease Author Type: Physician Type: Consults Filed: 11/03/2024 18:40 Note Text: BRIEF CONSULT NOTE SERVICE DATE: 11/03/2024 SERVICE TIME: 6:37 PM Patient seen. Full consult dictated RECOMMENDATIONS/PLAN Principal Problem: UTI (urinary tract infection) (POA: Yes) History of incontinence, intravesicular Botox injection in August 2024 Suggest to continue cephalexin She should be followed by her experimental aircraft mechanic, would not send her home on suppressive therapy . SIGNATURE: Rufina Varghese MD PATIENT NAME: Tevin Villagomez DATE: November 03, 2024 TIME: 6:37 PM [facility] CONSULT HNO ID: [id number] Author: MOY SLATER APRN.CNP Service: Gastroenterology Author Type: Nurse Practitioner Type: Consults Filed: 11/03/2024 16:23 Note Text: CONSULT: GI SERVICE SERVICE DATE: 11/03/2024 SERVICE TIME: 4:02 PM REASON FOR CONSULT: abd pain REQUESTING PHYSICIAN: Dr. Mendenhall PRIMARY CARE PHYSICIAN: Cande Ely APRN.CLERK OF SCALES Subjective Ms. Villagomez is a 69 year old female with past medical history significant for kidney stones, recurrent urinary tract infections, COPD, CAD, HH s/p Aditi Fundoplication known pancreatic duct dilatation who presents here today for concerns of confusion, left shoulder pain and right hand pain. Patient accompanied by her granddaughter who provide majority of the history. Patient is currently being worked up for this chronic abdominal pain, and abnormal dilated pancreatic duct. She is actually scheduled for an EGD with EUS today but was cancelled due to this admission. The last several days family is noted that she has been more confused lately, similar to previous presentations for her many UTIs in the past. She denies any worsening of the abdominal pain. Has had some vague nausea. Dysphagia at baseline. Denies any vomiting, constipation or diarrhea. Additionally has had increasing of her left neck/shoulder pain. He denies any other complaints. Patient states the abdominal pain has not changed from her baseline. Labs: WBC 9.51, H/H 12.9, 39.2, plt 194, BUN 12, Creat 0.74, TBili 0.6, Alk P 141, ALT 8, AST 17 FUNCTIONAL STATUS: Independent PAST MEDICAL HISTORY Diagnosis Date Acquired hypothyroidism Anxiety CAD (coronary artery disease) COPD (chronic obstructive pulmonary disease) with chronic bronchitis (HCC) Cystourethrocele Dysphagia Fibromyalgia GERD (gastroesophageal reflux disease) s/p surgery now controlled with zantac, Dr. Ojeda Gout Hiatal hernia Leiomyoma 04/22/2011 ESOPHAGUS, excised 04/22/2011 Levoscoliosis of thoracic spine Migraine Neck pain cervicle fusion 03/05 Open wound with complication 08/22/2024 Osteoarthritis ? RA Dr Lindsey mtx and [place] Osteoporosis Other specified abdominal hernia without obstruction or gangrene S/P Botox injection 07/2024 botox injection in bladder Vaginal vault prolapse after hysterectomy PAST SURGICAL HISTORY Procedure Laterality Date ARTHROSCOPY KNEE DIAGNOSTIC W/WO SYNOVIAL BX SPX Right 2016 meniscus repair BLADDER SURGERY HX BREAST AUGMENTATION WITH IMPLANT 1991 Breast augmentation BUNIONECTOMY, LAPIDUS-TYPE Bilat. COMPLEX CYSTOMETROGRAM VOIDING PRESSURE STUDIES 08/08/2024 CYSTOURETHROSCOPY 08/08/2024 CYSTOURETHROSCOPY INJ CHEMODENERVATION BLADDER 08/24/2024 EGD 02/2016 Dr. Ojeda EGD - BALLOON DILATION, GUIDE 01/2022 ESOPHAGOGASTRODUODENOSCO PY TRANSORAL DIAGNOSTIC 11/[address] Ojeda EXT HYSTERECTOMY,W/PARTIAL VAGINECTO benign causes I AND D ABSCESS, COMPLICATED N/A 06/28/2022 abdominal wound abscess KIDNEY STONE SURGERY HX Ureteral stents KNEE SURGERY HX Right PALOMO W/O FACETEC FORAMOT/DSC 06/23 VRT SGM CRV 02/2014 cervicle fusion LAPAROSCOPY SURG CHOLECYSTECTOMY 04/2011 Cholecystectomy, lap MAMMOTOME BIOPSY RIGHT 2013 NECK SURGERY HX PAST SURGICAL HISTORY OF 2015 MOHS for basal cell on her back PAST SURGICAL HISTORY OF 03/2016 R TKA PAST SURGICAL HISTORY OF 06/28/2022 Incision and drainage of abdominal wound infection/abscess. Dr. Glynn REPAIR INCISIONAL HERNIA,REDUCIBLE 06/06/[address] Perez RPR PARAESOPH HIATAL HERNIA W/LAPT W/O MESH 04/22/2011 Laparotomy, Excision of esophageal leiomyoma and repair of esophageal wall, Esophagogastroscopy, Aditi fundoplication for Short esophagus, Type I hiatal hernia and Esophageal leiomyoma TONSILLECTOMY PRIMARY/SECONDARY Tonsillectomy FAMILY HISTORY Problem Relation Age of Onset Cancer Mother Lung at 72 y/o Psychiatry Mother nervous breakdown, had shock therapy Cancer Father Lung at 76 y/o Psychiatry Father had nervous breakdown, had shock therapy other (no colon cancer) Father other (no breast cancer) Father other (no diabetes) Father other (no cad) Father Psychiatry Brother Breast Cancer Daughter dx age 37 Social History Tobacco Use Smoking status: Never Smokeless tobacco: Never Vaping Use Vaping status: Never Used Substance Use Topics Alcohol use: Yes Comment: rare 1x/year Drug use: No mirabegron (MYRBETRIQ ORAL), Take 25 mg by mouth every evening., Disp: , Rfl: , 11/01/2024 Aharjeaweltzp-Ypduaxpd-C utein (MULTIVITAMIN 50 PLUS) tab, Take 1 tablet by mouth once daily., Disp: , Rfl: , 11/02/2024 Morning sertraline (ZOLOFT) 50 mg tablet, Take 2 tablets by mouth daily at bedtime. (Patient taking differently: Take 100 mg by mouth daily at bedtime. Pt takes 50mg in AM and 50mg HS), Disp: , Rfl: , 11/02/2024 Morning ibuprofen (MOTRIN) 600 mg tablet, Take 1 tablet by mo (more content not included)... Normal [facility] CONSULT HNO ID: [id number] Author: Rufina VARGHESE MD Service: Infectious Disease Author Type: Physician Type: Consults Filed: 11/04/2024 18:26 Note Text: [facility] - Consultation TEVIN VILLAGOMEZ : 1955 AGE: 69 SEX: F CSN: [id number] [facility]: Medical LOCATION: [facility] ATTENDING PHYSICIAN: MENA DOUGLASS DATE OF SERVICE: 11/03/2024 TIME OF SERVICE: 06:00 PM CONSULTING PHYSICIAN: Cayden Varghese M.D. REQUESTING PHYSICIAN: Dr. Mena Douglass. HISTORY OF PRESENT ILLNESS: This is a 69-year-old female apparently has history of pancreatic dilatation and chronic abdominal pain and she was scheduled to undergo EGD and EUS today. However, during the last few days, her family noticed that she was somewhat disoriented and somewhat confused and they felt the patient has had similar episodes when she had a urinary tract infection and therefore she was brought to the emergency room yesterday. The patient endorses this same story, but she states that she has not had any urinary symptoms at present. She does not complain of any UTI symptoms currently. In looking back, I reviewed the Epic and it appears that she has been followed by [facility]. It appears someone referred her to this clinic in 01/2024 and they have made the diagnosis of stage 2 pelvic organ prolapse and urgent stress incontinence. She had a cystoscopy done in 02/2024 showing no abdominal findings. She appears to have received intravesicular Botox on 08/24/2024, and there has not been any additional visits with this group. The patient seems to think that she has improved with her incontinence. They have not addressed the issue of treatment of recurrent urinary tract infections with any suppressive antimicrobial therapy. However, in Apr 2024, oral cephalexin daily for 90 days was prescribed by her PCP . When I asked the patient, the patient states that she did receive Keflex, but then she changed the physician and it looks like the continuation of cephalexin did not happen when she changed the physician. The patient has had some additional complaints of pain in her shoulder and hand. PAST MEDICAL HISTORY: In addition to the above history, she has history of fibromyalgia and hypothyroidism, history of COPD. SOCIAL HISTORY: She is not a smoker. FAMILY HISTORY: No other significant sick contacts. REVIEW OF SYSTEMS: Essentially as noted above. The patient is able to give me a reasonable history and does not appear to be confused and disoriented currently. LABORATORY DATA: Since admission has revealed normal white cell count, normal hemoglobin, hematocrit, and platelet count. Chemistry shows no significant abnormality. Urinalysis as in the past has shown some pyuria, her wbc in the urine was greater than 25 wbc's per high-power field and she had positive leukocyte esterase. MICROBIOLOGY: Results reviewed. It appears urine cultures sent in 03/2024 had grown greater than 100,000 colonies of E coli. Admission urine culture still pending. IMAGING STUDIES: She had x-rays of the hand and shoulder, no acute findings were noted. She had a CT of the abdomen and pelvis obtained in the emergency room and according to the radiologist, no CT evidence of acute abnormality. PHYSICAL EXAMINATION: Vital Signs: Reveal the patient to be afebrile since admission to the hospital. Her vital signs reveal temperature of 36.6, blood pressure 120/76, pulse rate of 73. She is on room air, saturating well. General: She is awake, alert, and oriented. She was able to give me a reasonable history. Heart: Reveals S1 and S2 to be normal. Lungs: Clear. Abdomen: Soft and nontender. IMPRESSION: This is a 69-year-old female with significant history of urgent stress incontinence followed by [facility], has had cystoscopy in 02/2024 showed no abnormality. She received Botox injection to the intravesical on 08/24/2024, from which she appears to have improved. She presents with altered mental status and concern for urinary tract infection has been raised. Urine culture is still pending. It appears she did receive 1 dose of ceftriaxone in the emergency room and has been started on cephalexin 500 mg every 8 hours. The patient has been followed by [facility] and I preferred to have them follow her rather than simply placing her on chronic suppressive therapy. The patient's who goes on chronic suppressive therapy should be followed on a regular basis. So, I would hold putting her on any suppressive therapy and I have advised her that she should really be followed by Pelvic Medicine. We thank you very much for allowing us to participate in taking care of this patient. We will follow the patient as needed by you. Cayden Varghese M.D. Infectious Disease KG:[id number] (more content not included)... Normal [facility] CT ABD/PEL W IVCONon 025 CT ABD/PEL W IVCON * * *Final Report* * * DATE OF EXAM: Nov 03 2024 4:34AM [facility] 0530 - CT ABD/PEL W IVCON / PROCEDURE REASON: Abdominal abscess/infection suspected * * * * Physician Interpretation * * * * EXAMINATION: CT ABDOMEN AND PELVIS WITH IV CONTRAST CLINICAL HISTORY: Abdominal abscess/infection suspected TECHNIQUE: CT of the abdomen and pelvis was performed using standard technique, scanning from just above the dome of the diaphragm to the symphysis pubis. Contrast: IV: 100 ml of Omnipaque 350 CT Radiation dose: Integrated Dose-length product (DLP) for this visit = 704 mGy*cm. CT Dose Reduction Employed: Automated exposure control (AEC) COMPARISON: CT abdomen and pelvis 08/25/2024 RESULT: Liver: No mass. Biliary: Cholecystectomy. Spleen: No mass. No splenomegaly. Pancreas: Pancreatic duct measuring up to 6 mm diameter is unchanged. No peripancreatic inflammatory changes. Adrenals: No mass. Kidneys: No mass, calculus or hydronephrosis. GI tract: Small paraesophageal hernia is unchanged. No dilation or wall thickening. The appendix appears normal. Lymph nodes: No abdominal or pelvic lymphadenopathy. Mesentery/Peritoneum: No ascites or mass. Retroperitoneum: No mass or enlarged lymph nodes. Vasculature: No abdominal aortic aneurysm. Pelvis: No mass, ascites or fluid collection. The urinary bladder is unremarkable. Bones/Soft Tissues: The bones contain no worrisome lytic or sclerotic lesions. Lower thorax: The lung bases are clear. IMPRESSION: No CT evidence of acute abnormality. Personal Insurance Advisor: ELVIRA Transcribe Date/Time: Nov 03 2024 6:22A Dictated by : DANISHA SOTO MD This examination was interpreted and the report reviewed and electronically signed by: DANISHA SOTO MD on Nov 03 2024 6:28AM EST [id number] [facility] ED NOTEon 11-03-2024 ED NOTE HNO ID: [id number] Author: BRIELLE SAUCEDA, ASIM Service: ? Author Type: Registered Nurse Type: ED Notes Filed: 11/03/2024 10:11 Note Text: Patient previously scheduled for EGD today. Per Dr Lam delarosa for patient to go to EGD. Contacted mari, advised EGD cancelled. Dr Douglass updated via [facility] ED NOTE HNO ID: [id number] Author: BRIELLE SAUCEDA RN Service: ? Author Type: Registered Nurse Type: ED Notes Filed: 11/03/2024 07:09 Note Text: Patient report received from ASIM Palma [facility] ED NOTE HNO ID: [id number] Author: GENA VERDUGO RN Service: ? Author Type: Registered Nurse Type: ED Notes Filed: 11/03/2024 01:46 Note Text: Bed: 08-ED Expected date: Expected time: Means of arrival: Comments: triage [facility] ED PROV NOTEon 11-03-2024 ED PROV NOTE HNO ID: [id number] Author: KT BEJARANO DO Service: Emergency Medicine Author Type: Physician Type: ED Provider Notes Filed: 11/03/2024 06:50 Note Text: ED Provider Note Patient Name: Tevin Villagomez : 1955 SERVICE DATE: 11/02/24 History Patient presents with: Abdominal Pain: Supposed to have an endoscopy tomorrow, increased pain in lower abd/neck/groin. Scan is for a dialtated pancreatic duct. Pt states she is just in too much pain - ibuprofen @1400. Denies nausea, vomiting, diarrhea, constipation. Hx of UTIs - pt displaying some mild confusions that family is concerned about. HPI This 69-year-old female past medical history significant for kidney stones, recurrent urinary tract infections, COPD, CAD, known pancreatic duct dilatation who presents here today for concerns of confusion, left shoulder pain and right hand pain. Patient accompanied by her granddaughter and who provide majority of the history. Patient is currently being worked up for this chronic abdominal pain, and abnormal dilated pancreatic duct. She is actually scheduled for an EGD with EUS tomorrow. The last several days family is noted that she has been more confused lately, similar to previous presentations for her many UTIs in the past. She denies any worsening of the abdominal pain. Has had somevague nausea. Denies any vomiting, constipation or diarrhea. Additionally has had increasing of her left neck/shoulder pain. Worse with turning her head [id number]. Denies any numbness or weakness. No fevers no chills. Also has right hand pain. He denies any other complaints. Patient states the abdominal pain has not changed from her baseline. PAST MEDICAL HISTORY Diagnosis Date Acquired hypothyroidism Anxiety CAD (coronary artery disease) COPD (chronic obstructive pulmonary disease) with chronic bronchitis (HCC) Cystourethrocele Dysphagia Fibromyalgia GERD (gastroesophageal reflux disease) s/p surgery now controlled with zantac, Dr. Ojeda Gout Hiatal hernia Leiomyoma 04/22/2011 ESOPHAGUS, excised 04/22/2011 Levoscoliosis of thoracic spine Migraine Neck pain cervicle fusion 03/05 Open wound with complication 08/22/2024 Osteoarthritis ? RA Dr Lindsey mtx and irving Osteoporosis Other specified abdominal hernia without obstruction or gangrene S/P Botox injection 07/2024 botox injection in bladder Vaginal vault prolapse after hysterectomy PAST SURGICAL HISTORY Procedure Laterality Date ARTHROSCOPY KNEE DIAGNOSTIC W/WO SYNOVIAL BX SPX Right 2015 meniscus repair BLADDER SURGERY HX BREAST AUGMENTATION WITH IMPLANT 1991 Breast augmentation BUNIONECTOMY, LAPIDUS-TYPE Bilat. COMPLEX CYSTOMETROGRAM VOIDING PRESSURE STUDIES 08/08/2024 CYSTOURETHROSCOPY 08/08/2024 CYSTOURETHROSCOPY INJ CHEMODENERVATION BLADDER 08/24/2024 EGD 02/2016 Dr. Ojeda EGD - BALLOON DILATION, GUIDE 01/2022 ESOPHAGOGASTRODUODENOSCO PY TRANSORAL DIAGNOSTIC 11/[address] Ojeda EXT HYSTERECTOMY,W/PARTIAL VAGINECTO benign causes I AND D ABSCESS, COMPLICATED N/A 06/28/2022 abdominal wound abscess KIDNEY STONE SURGERY HX Ureteral stents KNEE SURGERY HX Right PALOMO W/O FACETEC FORAMOT/DSC 06/23 VRT SGM CRV 02/2014 cervicle fusion LAPAROSCOPY SURG CHOLECYSTECTOMY 04/2011 Cholecystectomy, lap MAMMOTOME BIOPSY RIGHT 2013 NECK SURGERY HX PAST SURGICAL HISTORY OF 2015 MOHS for basal cell on her back PAST SURGICAL HISTORY OF 03/2016 R TKA PAST SURGICAL HISTORY OF 06/28/2022 Incision and drainage of abdominal wound infection/abscess. Dr. Glynn REPAIR INCISIONAL HERNIA,REDUCIBLE 06/06/[address] Perez RPR PARAESOPH HIATAL HERNIA W/LAPT W/O MESH 04/22/2011 Laparotomy, Excision of esophageal leiomyoma and repair of esophageal wall, Esophagogastroscopy, Aditi fundoplication for Short esophagus, Type I hiatal hernia and Esophageal leiomyoma TONSILLECTOMY PRIMARY/SECONDARY Tonsillectomy FAMILY HISTORY Problem Relation Age of Onset Cancer Mother Lung at 72 y/o Psychiatry Mother nervous breakdown, had shock therapy Cancer Father Lung at 76 y/o Psychiatry Father had nervous breakdown, had shock therapy other (no colon cancer) Father other (no breast cancer) Father other (no diabetes) Father other (no cad) Father Psychiatry Brother Breast Cancer Daughter dx age 37 Social History Tobacco Use Smoking status: Never Smokeless tobacco: Never Vaping Use Vaping status: Never Used Substance and Sexual Activity Alcohol use: Yes Comment: rare 1x/year Drug use: No Sexual activity: Not on file ALLERGIES No Known Allergies Review of Systems Constitutional: Negative for chills and fever. HENT: Negative for rhinorrhea and sore throat. Respiratory: Negative for cough and shortness of breath. Cardiovascular: Negative for chest pain and leg swelling. Gastrointes (more content not included)... [facility] EKGon 11-03-2024 Electrocardiogram Ventricular Rate : 7 3 BPM Atrial Rate : 72 BPM P-R Interval : 131 ms QRS Duration : 88 ms Q-T Interval : 422 ms QTC Calculation(Bazett) : 465 ms Calculated P Fork : 47 degrees Calculated R Fork : 34 degrees Calculated T Fork : 32 degrees Sinus rhythm Normal ECG Confirmed by KT BEJARANO DO ([id number]) on 11/03/2024 2:54:00 AM NAME : TEVIN VILLAGOMEZ PID : [id number] : 1955 Gender : Female Race : ORD : Procedure Date : Nov 03 2024 02:46:19 Edit Date : Nov 03 2024 02:54:02 Diagnosis: Sinus rhythm Normal ECG Confirmed by KT BEJARANO DO ([id number]) on 11/03/2024 2:54:00 AM Test Reason : Location : 402 : FVED [id number] Overread By : KT BEJARANO DO Edited By : KT BEJARANO DO Referred By : , Acquired by : [id number], [facility] HISTORY PHYSICALon HISTORY PHYSICAL HNO ID: [id number] Author: MENA DOUGLASS MD Service: Hospital Medicine Author Type: Physician Type: H&P Filed: 11/03/2024 15:28 Note Text: DEPARTMENT OF HOSPITAL MEDICINE HISTORY AND PHYSICAL EXAM PATIENT NAME: Tevin Villagomez SERVICE DATE: 11/03/2024 Primary Care Physician: Cande Ely APRN.CLERK OF SCALES NIGHT AND WEEKEND COVERAGE: Team 5 - day 7.30 am-5.30 pm text me in epic, night (5.30 pm-7.30 am) please page [phone] ASSESSMENT AND PLAN UTI - got Rocephin in ED, keflex from am, pending cx - ask ID to see for recs chronic prophylaxis? Muscle pain shoulder ligaments - would benefit from chiropractor as OP and massage Chronic GI issues - was supposed to get EGD today as OP - ask GI to see, can be rescheduled for OP - on PPI Hypothyr on med SUBJECTIVE CHIEF COMPLAINT: arthritis pain and UTI HPI: This is a 69 year old female who presents with shoulder pain and hand pain due to arthritis. Also has frequent UTIs and UA suggestive of one. At some point was doing daily keflex for prophylaxis, not right now. Also with chronic GI issues - lower abd pain, some nausea - for which she was scheduled to have EGD today as OP - now cancelled. 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 Ojeda Gout Hiatal hernia Leiomyoma 04/22/2011 ESOPHAGUS, excised 04/22/2011 Levoscoliosis of thoracic spine Migraine Neck pain cervicle fusion 03/05 Open wound with complication 08/22/2024 Osteoarthritis ? RA Dr Lindsey mtx and irving Osteoporosis Other specified abdominal hernia without obstruction or gangrene S/P Botox injection 07/2024 botox injection in bladder Vaginal vault prolapse after hysterectomy PAST SURGICAL HISTORY: PAST SURGICAL HISTORY Procedure Laterality Date ARTHROSCOPY KNEE DIAGNOSTIC W/WO SYNOVIAL BX SPX Right 2015 meniscus repair BLADDER SURGERY HX BREAST AUGMENTATION WITH IMPLANT 1991 Breast augmentation BUNIONECTOMY, LAPIDUS-TYPE Bilat. COMPLEX CYSTOMETROGRAM VOIDING PRESSURE STUDIES 08/08/2024 CYSTOURETHROSCOPY 08/08/2024 CYSTOURETHROSCOPY INJ CHEMODENERVATION BLADDER 08/24/2024 EGD 02/2016 Dr. Ojeda EGD - BALLOON DILATION, GUIDE 01/2022 ESOPHAGOGASTRODUODENOSCO PY TRANSORAL DIAGNOSTIC 11/[address] Ojeda EXT HYSTERECTOMY,W/PARTIAL VAGINECTO benign causes I AND D ABSCESS, COMPLICATED N/A 06/28/2022 abdominal wound abscess KIDNEY STONE SURGERY HX Ureteral stents KNEE SURGERY HX Right PALOMO W/O FACETEC FORAMOT/DSC 06/23 VRT SGM CRV 02/2014 cervicle fusion LAPAROSCOPY SURG CHOLECYSTECTOMY 04/2011 Cholecystectomy, lap MAMMOTOME BIOPSY RIGHT 2013 NECK SURGERY HX PAST SURGICAL HISTORY OF 2015 MOHS for basal cell on her back PAST SURGICAL HISTORY OF 03/2016 R TKA PAST SURGICAL HISTORY OF 06/28/2022 Incision and drainage of abdominal wound infection/abscess. Dr. Glynn REPAIR INCISIONAL HERNIA,REDUCIBLE 06/06/[address] Perez RPR PARAESOPH HIATAL HERNIA W/LAPT W/O MESH 04/22/2011 Laparotomy, Excision of esophageal leiomyoma and repair of esophageal wall, Esophagogastroscopy, Aditi fundoplication for Short esophagus, Type I hiatal hernia and Esophageal leiomyoma TONSILLECTOMY PRIMARY/SECONDARY Tonsillectomy FAMILY HISTORY: FAMILY HISTORY Problem Relation Age of Onset Cancer Mother Lung at 72 y/o Psychiatry Mother nervous breakdown, had shock therapy Cancer Father Lung at 76 y/o Psychiatry Father had nervous breakdown, had shock therapy other (no colon cancer) Father other (no breast cancer) Father other (no diabetes) Father other (no cad) Father Psychiatry Brother Breast Cancer Daughter dx age 37 SOCIAL HISTORY: Social History Tobacco Use Smoking status: Never Smokeless tobacco: Never Vaping Use Vaping status: Never Used Substance Use Topics Alcohol use: Yes Comment: rare 1x/year Drug use: No MEDICATIONS: Reviewed ALLERGIES: ALLERGIES No Known Allergies REVIEW OF SYSTEM: Neg except HPI OBJECTIVE PHYSICAL EXAM: BP 135/79 Pulse 83 Temp (Src) 98.4 (Oral) Resp 20 Ht 5' 1 (1.55m) Wt 163 lb (73.9kg) SpO2 95% BMI 30.81 kg/(m2). General: no apparent distress, AO x 3 Skin: no rash or jaundice Eyes: PERRLA, EOMI ENT: Nares patent, oropharynx clear, head normocephalic/atraumatic CVS: RRR, no M/R/G Lungs: LCTAB, no w/r/r Abd: +BS, soft, NT Neuro: CN 2-12 intact, no focal motor deficits noted Ext: No edema MS: pain shoulder tendon left side Psych: Appropriate affect, no acute anxiety DATA: Diagnostic tests reviewed for today's visit: Most recent labs Most recent imaging VTE Prophyl (more content not included)... [facility] XR HAND 3V PA/LAT/OBL RTon 0 11-03-2024 XR HAND 3V PA/LAT/OBL RT * * *Final Repo rt* * * DATE OF EXAM: Nov 03 2024 2:35AM FVX [id number] - XR HAND 3V PA/LAT/OBL RT / PROCEDURE REASON: Other * * * * Physician Interpretation * * * * EXAMINATION: XR SHLDR >/=3V AP/JAMES AP/OTHR LT, XR HAND 3V PA/LAT/OBL RT CLINICAL HISTORY: Other, left shoulder pain (accession [id number]), Other, right hand pain (accession [id number]) Technique: XR SHLDR >/=3V AP/JAMES AP/OTHR LT, XR HAND 3V PA/LAT/OBL RT -- LEFT (accession [id number]), RIGHT (accession [id number]) with 3 views on 3 images Comparison: None RESULT: Left shoulder: No acute fracture or osseous lesions are identified. No dislocation. Subacromial space and acromioclavicular joint are preserved. The soft tissue structures are unremarkable. Right hand: No acute fracture or osseous lesions are identified. There is severe DJD of the thumb CMC joint and midcarpal row with joint space narrowing and osteophytosis. There is narrowing of multiple MCP, PIP and DIP joints with osteophytes indicating DJD. Soft tissue structures are unremarkable. IMPRESSION: 1. No acute findings. 2. DJD of the right hand. Personal Insurance Advisor: ELVIRA Transcribe Date/Time: Nov 03 2024 5:07A Dictated by : VIRGINIE BEST MD This examination was interpreted and the report reviewed and electronically signed by: VIRGINIE BEST MD on Nov 03 2024 5:09AM EST [id number] [facility] XR SHLDR >/=3V AP/JAMES AP/OTH R LTon 11-03-2024 XR SHLDR >/=3V AP/JAMES AP/OTHR LT * * *Final Report* * * DATE OF EXAM: Nov 03 2024 2:35AM FVX 5252 - XR SHLDR >/=3V AP/JAMES AP/OTHR LT / PROCEDURE REASON: Other * * * * Physician Interpretation * * * * EXAMINATION: XR SHLDR >/=3V AP/JAMES AP/OTHR LT, XR HAND 3V PA/LAT/OBL RT CLINICAL HISTORY: Other, left shoulder pain (accession [id number]), Other, right hand pain (accession [id number]) Technique: XR SHLDR >/=3V AP/JAMES AP/OTHR LT, XR HAND 3V PA/LAT/OBL RT -- LEFT (accession [id number]), RIGHT (accession [id number]) with 3 views on 3 images Comparison: None RESULT: Left shoulder: No acute fracture or osseous lesions are identified. No dislocation. Subacromial space and acromioclavicular joint are preserved. The soft tissue structures are unremarkable. Right hand: No acute fracture or osseous lesions are identified. There is severe DJD of the thumb CMC joint and midcarpal row with joint space narrowing and osteophytosis. There is narrowing of multiple MCP, PIP and DIP joints with osteophytes indicating DJD. Soft tissue structures are unremarkable. IMPRESSION: 1. No acute findings. 2. DJD of the right hand. Personal Insurance Advisor: ELVIRA Transcribe Date/Time: Nov 03 2024 5:07A Dictated by : VIRGINIE BEST MD This examination was interpreted and the report reviewed and electronically signed by: VIRGINIE BEST MD on Nov 03 2024 5:09AM EST [id number] [facility] Bacteria Ur Culton Bacteria identified Cx Nom (U) ORGANISM ID: 1 >=100,000 CFU/ml Mixed microbiota No further workup. Mixed microbiota can be due to???urine???contaminati on with skin bacteria at time of collection or presence of a long-term urinary catheter. If a new culture is needed, please consider re-education of the patient on proper midstream collection technique or straight catheterization for???urine???collection . [facility] Comment on above: Performed By: #### 6 30-4 ####[facility] LABCLIA [id number] [address] [place]#### [address]-2 ####[facility]ATORY[facility] [id number] [place] [address] [place] CBC W Auto Differential pane l (Bld)on 11-02-2024 Basophils (Bld) [#/Vol] 0.04 10*3/uL Normal <0.11 [facility] Comment on above: Order Comment: Speci men Type: BLOOD SPECIMENOrdering Facility: [facility] Address: [address] [place] [address] Performed By: #### 5 7021-8 ####[facility]ATORYCLIA [id number] [place] [address] [place] Basophils/100 WBC (Bld) 0.4 % Normal [facility] Comment on above: Order Comment: Speci men Type: BLOOD SPECIMENOrdering Facility: [facility] Address: [address] [place] [address] Performed By: #### 5 7021-8 ####[facility]ATORYCLIA [id number] [place] [address] [place] Differential cell count method Nom (Bld) Auto [facility] Comment on above: Order Comment: Speci men Type: BLOOD SPECIMENOrdering Facility: [facility] Address: [address] [place] [address] Performed By: #### 5 7021-8 ####[facility]ATORYCLIA [id number] [place] [address] [place] Eosinophils (Bld) [#/Vol] 0.05 10*3/uL Normal <0.46 [facility] Comment on above: Order Comment: Speci men Type: BLOOD SPECIMENOrdering Facility: [facility] Address: [address] [place] [address] Performed By: #### 5 7021-8 ####[facility]ATORYCLIA [id number] [place] [address] [place] Eosinophils/100 WBC (Bld) 0.5 % Normal [facility] Comment on above: Order Comment: Speci men Type: BLOOD SPECIMENOrdering Facility: [facility] Address: [address] [place] [address] Performed By: #### 5 7021-8 ####[facility]ORATORYCLIA [id number] [address] [place] Erythrocyte distribution width (RBC) [Ratio] 13.2 % Normal 11.5-15.0 [facility] Comment on above: Order Comment: Speci men Type: BLOOD SPECIMENOrdering Facility: [facility] Address: [address] [place] [address] Performed By: #### 5 7021-8 ####[facility]ORATORYCLIA [id number] [place] [address] [place] Hematocrit (Bld) [Volume fraction] 39.2 % Normal 36.0-46.0 [facility] Comment on above: Order Comment: Speci men Type: BLOOD SPECIMENOrdering Facility: [facility] Address: [address] [place] [address] Performed By: #### 5 7021-8 ####[facility]ATORYCLIA [id number] [place] [address] [place] Hemoglobin (Bld) [Mass/Vol] 12.9 g/dL Normal 11.5-15.5 [facility] Comment on above: Order Comment: Speci men Type: BLOOD SPECIMENOrdering Facility: [facility] Address: [address] [place] [address] Performed By: #### 5 7021-8 ####[facility] LABORATORYCLIA [id number] [place] [id number] [place] Immature granulocytes (Bld) [#/Vol] 0.05 10*3/uL Normal <0.10 [facility] Comment on above: Order Comment: Speci men Type: BLOOD SPECIMENOrdering Facility: [facility] Address: [address] [place] [address] Performed By: #### 5 7021-8 ####[facility]ORATORYCLIA [id number] [place] [id number] [place] Immature granulocytes/100 WBC (Bld) 0.5 % Normal [facility] Comment on above: Order Comment: Speci men Type: BLOOD SPECIMENOrdering Facility: [facility] Address: [address] [place] [address] Performed By: #### 5 7021-8 ####[facility] LABORATORYCLIA [id number] [place] [id number] [place] Lymphocytes (Bld) [#/Vol] 1.89 10*3/uL Normal 1.00-4.00 [facility] Comment on above: Order Comment: Speci men Type: BLOOD SPECIMENOrdering Facility: [facility] Address: [address] [place] [address] Performed By: #### 5 7021-8 ####[facility]ORATORYCLIA [id number] [place] [id number] [place] Lymphocytes/100 WBC (Bld) 19.9 % Normal [facility] Comment on above: Order Comment: Speci men Type: BLOOD SPECIMENOrdering Facility: [facility] Address: [address] [place] [address] Performed By: #### 5 7021-8 ####[facility] LABORATORYCLIA [id number] [place] [id number] [place] MCH (RBC) [Entitic mass] 28.7 pg Normal 26.0-34.0 [facility] Comment on above: Order Comment: Speci men Type: BLOOD SPECIMENOrdering Facility: [facility] Address: [address] [place] [address] Performed By: #### 5 7021-8 ####[facility] LABORATORYCLIA [id number] [place] [id number] [place] MCHC (RBC) [Mass/Vol] 32.9 g/dL Normal 30.5-36.0 [facility] Comment on above: Order Comment: Speci men Type: BLOOD SPECIMENOrdering Facility: [facility] Address: [address] [place] [address] Performed By: #### 5 7021-8 ####[facility] LABORATORYCLIA [id number] [place] [id number] [place] MCV (RBC) [Entitic vol] 87.1 fL Normal 80.0-100.0 [facility] Comment on above: Order Comment: Speci men Type: BLOOD SPECIMENOrdering Facility: [facility] Address: [address] [place] [address] Performed By: #### 5 7021-8 ####[facility] LABORATORYCLIA [id number] [place] [address] [place] Monocytes (Bld) [#/Vol] 0.83 10*3/uL Normal <0.87 [facility] Comment on above: Order Comment: Speci men Type: BLOOD SPECIMENOrdering Facility: [facility] Address: [address] [place] [address] Performed By: #### 5 7021-8 ####[facility]ORATORYCLIA [id number] [place] [id number] [place] Monocytes/100 WBC (Bld) 8.7 % Normal [facility] Comment on above: Order Comment: Speci men Type: BLOOD SPECIMENOrdering Facility: [facility] Address: [address] [place] [address] Performed By: #### 5 7021-8 ####[facility]ATORYCLIA [id number] [place] [address] [place] Neutrophils (Bld) [#/Vol] 6.65 10*3/uL Normal 1.45-7.50 [facility] Comment on above: Order Comment: Speci men Type: BLOOD SPECIMENOrdering Facility: [facility] Address: [address] [place] [address] Performed By: #### 5 7021-8 ####[facility] LABORATORYCLIA [id number] [place] [id number] [facility] Neutrophils/100 WBC (Bld) 70.0 % Normal [facility] Comment on above: Order Comment: Speci men Type: BLOOD SPECIMENOrdering Facility: [facility] Address: [address] [place] [address] Performed By: #### 5 7021-8 ####[facility]ATORYCLIA [id number] [place] [id number] [place] Nucleated RBC (Bld) [#/Vol] 10*3/uL Normal <0.01 [facility] Comment on above: Order Comment: Speci men Type: BLOOD SPECIMENOrdering Facility: [facility] Address: [address] [place] [address] Performed By: #### 5 7021-8 ####[facility] LABORATORYCLIA [id number] [place] [address] [place] Nucleated RBC/100 WBC (Bld) [Ratio] 0.0 /100 WBC Normal [facility] Comment on above: Order Comment: Speci men Type: BLOOD SPECIMENOrdering Facility: [facility] Address: [address] [place] [address] Performed By: #### 5 7021-8 ####[facility]ORATORYCLIA [id number] [place] [id number] [place] Platelet mean volume (Bld) [Entitic vol] 9.2 fL Normal 9.0-12.7 [facility] Comment on above: Order Comment: Speci men Type: BLOOD SPECIMENOrdering Facility: [facility] Address: [address] [place] [address] Performed By: #### 5 7021-8 ####[facility]ORYCLIA [id number] [place] [id number] [place] Platelets (Bld) [#/Vol] 194 10*3/uL Normal 150-400 [facility] Comment on above: Order Comment: Speci men Type: BLOOD SPECIMENOrdering Facility: [facility] Address: [address] [place] [address] Performed By: #### 5 7021-8 ####[facility]ATORYCLIA [id number] [place] [id number] [place] RBC (Bld) [#/Vol] 4.50 10*6/uL Normal 3.90-5.20 [facility] Comment on above: Order Comment: Speci men Type: BLOOD SPECIMENOrdering Facility: [facility] Address: [address] [place] [address] Performed By: #### 5 7021-8 ####[facility]ORATORYCLIA [id number] [place] [id number] [place] WBC (Bld) [#/Vol] 9.51 10*3/uL Normal 3.70-11.00 [facility] Comment on above: Order Comment: Speci men Type: BLOOD SPECIMENOrdering Facility: [facility] Address: [address] [place] [address] Performed By: #### 5 7021-8 ####[facility]ATORYCLIA [id number] [place] [id number] [place] Comprehensive metabolic 2000 panelon 11-02-2024 Albumin [Mass/Vol] 3.9 g/dL Normal 3.9-4.9 [facility] Comment on above: Order Comment: Speci men Type: BLOOD SPECIMENOrdering Facility: [facility] Address: [address] [place] [address] Performed By: #### 3 040-3, 54413-2, ####[facility]ATORYCLIA [id number] [place] [id number] [place] ALP [Catalytic activity/Vol] 141 U/L High 34-123 [facility] Comment on above: Order Comment: Speci men Type: BLOOD SPECIMENOrdering Facility: [facility] Address: [address] [place] [address] Performed By: #### 3 040-3, 46416-6, ####[facility]ATORYCLIA [id number] [place] [address] [place] ALT [Catalytic activity/Vol] 8 U/L Normal 7-38 [facility] Comment on above: Order Comment: Speci men Type: BLOOD SPECIMENOrdering Facility: [facility] Address: [address] [place] [address] Performed By: #### 3 040-3, 07584-1, ####[facility]ATORYCLIA [id number] [place] [address] [place] Anion gap [Moles/Vol] 10 mmol/L Normal 8-15 [facility] Comment on above: Order Comment: Speci men Type: BLOOD SPECIMENOrdering Facility: [facility] Address: [address] [place] [address] Performed By: #### 3 040-3, , ####[facility]ORYCLIA [id number] [place] [id number] [place] AST [Catalytic activity/Vol] 17 U/L Normal 13-35 [facility] Comment on above: Order Comment: Speci men Type: BLOOD SPECIMENOrdering Facility: [facility] Address: [address] [place] [address] Performed By: #### 3 040-3, 37604-0, ####[facility]ATORYCLIA [id number] [place] [address] [place] Bilirubin [Mass/Vol] 0.6 mg/dL Normal 0.2-1.3 [facility] Comment on above: Order Comment: Speci men Type: BLOOD SPECIMENOrdering Facility: [facility] Address: [address] [place] [address] Performed By: #### 3 040-3, 15325-8, ####[facility]ORYCLIA [id number] [place] [address] [place] Calcium [Mass/Vol] 9.0 mg/dL Normal 8.5-10.2 [facility] Comment on above: Order Comment: Speci men Type: BLOOD SPECIMENOrdering Facility: [facility] Address: [address] [place] [id number] Performed By: #### 3 040-3, 90254-5, ####[facility] LABORATORYCLIA [id number] [place] [address] [place] Chloride [Moles/Vol] 98 mmol/L Normal 98-107 [facility] Comment on above: Order Comment: Speci men Type: BLOOD SPECIMENOrdering Facility: [facility] [facility] Address: [address] [place] [address] Performed By: #### 3 040-3, 53718-5, ####HANNA LABORATORYCLIA [id number] [place] [id number] [place] CO2 [Moles/Vol] 26 mmol/L Normal 22-30 [facility] Comment on above: Order Comment: Speci men Type: BLOOD SPECIMENOrdering Facility: [facility] Address: [address] [place] [address] Performed By: #### 3 040-3, 62692-3, ####[facility] LABORATORYCLIA [id number] [place] [id number] [place] Creatinine [Mass/Vol] 0.74 mg/dL Normal 0.58-0.96 [facility] Comment on above: Order Comment: Speci men Type: BLOOD SPECIMENOrdering Facility: [facility] Address: [address] [place] [address] Performed By: #### 3 040-3, 51168-6, ####[facility] LABORATORYCLIA [id number] [place] [id number] [place] Creatinine and Glomerular filtration rate.predicted panel (S/P/Bld) 88 mL/min/1.73m??? Normal >=60 [facility] Comment on above: Order Comment: Speci men Type: BLOOD SPECIMENOrdering Facility: [facility] Address: [address] [place] [address] Result Comment: Juliann mated Glomerular Filtration Rate (eGFR) is calculated using the 2021 CKD-EPI creatinine equation. This equation utilizes serum creatinine, sex, and age as parameters. The creatinine assay has traceable calibration to isotope dilution-mass spectrometry. Refer to KDIGO guidelines for clinical interpretation. In patients with unstable renal function, e.g. those with acute kidney injury, the eGFR may not accurately reflect actual GFR. Performed By: #### 3 040-3, 44553-5, ####[facility] LABORATORYCLIA [id number] [place] [id number] [place] Glucose [Mass/Vol] 112 mg/dL High 74-99 [facility] Comment on above: Order Comment: Michael may Type: BLOOD SPECIMENOrdering Facility: [facility] Address: [address] [place] [address] Result Comment: The [place] Diabetes Association (ADA) provides guidance for cutoff values for fasting glucose and random glucose. The ADA defines fasting as no caloric intake for at least 8 hours. Fasting plasma glucose results between 100 to 125 mg/dL indicate increased risk for diabetes (prediabetes). Fasting plasma glucose results greater than or equal to 126 mg/dL meet the criteria for diagnosis of diabetes. In the absence of unequivocal hyperglycemia, results should be confirmed by repeat testing. In a patient with classic symptoms of hyperglycemia or hyperglycemic crisis, random plasma glucose results greater than or equal to 200 mg/dL meet the criteria for diagnosis of diabetes. Reference: Standards of Medical Care in Diabetes 2016, [place] [employer] Association. Diabetes Care. 2016.39(Suppl 1). Performed By: #### 3 040-3, 68553-0, ####HANNA LABORATORYCLIA [id number] [place] [id number] [place] Potassium [Moles/Vol] 3.5 mmol/L Low 3.7-5.1 [facility] Comment on above: Order Comment: Michael may Type: BLOOD SPECIMENOrdering Facility: [facility] Address: [address] [place] [id number] Performed By: #### 3 040-3, 88092-1, ####[facility] LABORATORYCLIA [id number] [place] [address] [place] Protein [Mass/Vol] 6.9 g/dL Normal 6.3-8.0 [facility] Comment on above: Order Comment: Speci men Type: BLOOD SPECIMENOrdering Facility: [facility] Address: [address] [place], [place] [address] Performed By: #### 3 040-3, 40023-0, ####[facility] LABORATORYCLIA [id number] [place] [id number] [place] Sodium [Moles/Vol] 134 mmol/L Low 136-144 [facility] Comment on above: Order Comment: Speci men Type: BLOOD SPECIMENOrdering Facility: [facility] Address: [address] [place] [address] Performed By: #### 3 040-3, 50034-2, ####[facility] LABORATORYCLIA [id number] [place] [id number] [place] Urea nitrogen [Mass/Vol] 12 mg/dL Normal 7-21 [facility] Comment on above: Order Comment: Speci men Type: BLOOD SPECIMENOrdering Facility: [facility] Address: [address] [place] [address] Performed By: #### 3 040-3, 02644-4, ####AUBURN LABORATORYCLIA [id number] [place] [id number] [facility] ED Triage Noteon 11-02-2024 ED Triage Note HNO ID: [id number] Author: RICHELLE MALONE JR, MD Service: Emergency Medicine Author Type: Physician Type: ED Triage Notes Filed: 11/02/2024 21:25 Note Text: ED INTAKE NOTE Patient Name: Tevin Villagomez Service Date: 11/02/24 BRIEF HPI: This is a 69 year old female who presents to the ED with: Abdominal pain. Patient is post to have endoscopy tomorrow for dilated pancreatic duct. She has had pain in the lower abdomen/neck/groin. She has a history of UTIs and may have 1 now. She denies nausea/vomiting/diarrhea /constipation BRIEF EXAM: Awake and Alert. No apparent distress. INITIAL WORKUP AND DECISION MAKING: Orders Placed This Encounter No orders of the defined types were placed in this encounter. Lab Provider examination performed via virtual platform with assistance from bedside clinician. Further triage/room assignment per nursing Limited role in this case performing a screening of the patient in triage Further work up, treatment, follow up on testing ordered from triage, further testing, care, disposition, and final MDM per downstream emergency provider team Please see downstream ED providers's notation for full HnP and MDM SIGNATURE: Richelle Malone MD Normal [facility] Lipase SerPl-cCncon 11-03-19 25 Lipase [Catalytic activity/Vol] 12 U/L Low 16-61 [facility] Comment on above: Order Comment: Speci men Type: BLOOD SPECIMENOrdering Facility: [facility] Address: [address] [place] [address] Performed By: #### 3 040-3, 46760-3, ####AUBURN LABORATORYCLIA [id number] [place] [address] [place] Magnesium SerPl-mCncon 11-02 Magnesium [Mass/Vol] 1.8 mg/dL Normal 1.7-2.3 [facility] Comment on above: Order Comment: Speci men Type: BLOOD SPECIMENOrdering Facility: [facility] Address: [address] [place] [address] Performed By: #### 3 040-3, 17820-7, ####AUBURN LABORATORYCLIA [id number] [place] [address] [place] Urinalysis complete panel (U )on 11-02-2024 Bacteria LM.HPF (Urine sed) [#/Area] Rare Abnormal None Seen [facility] Comment on above: Order Comment: Speci men Type: URINE SPECIMENOrdering Facility: [facility] Address: [address] [place] [address] Performed By: #### 6 30-4 ####[facility] LABCLIA [id number] [place] [address] [place]#### 28365-9 ####AUBURN LABORATORYCLIA [id number] [place] [address] [place] Bilirubin Ql (U) Negative Normal Negative [facility] Comment on above: Order Comment: Speci men Type: URINE SPECIMENOrdering Facility: [facility] Address: [address] [place] [address] Performed By: #### 6 30-4 ####[facility] LABCLIA [id number] [place] [address] [place]#### 74100-8 ####AUBURN LABORATORYCLIA [id number] [place] [address] [place] Clarity (Unsp spec) Turbid Abnormal Clear [facility] Comment on above: Order Comment: Speci men Type: URINE SPECIMENOrdering Facility: [facility] Address: [address] [place] [address] Performed By: #### 6 30-4 ####[facility] LABCLIA [id number] [place] [address] [place]#### 93164-4 ####[facility] LABORATORYCLIA [id number] [place] [address] [place] Color (U) Yellow Normal Yellow [facility] Comment on above: Order Comment: Speci men Type: URINE SPECIMENOrdering Facility: [facility] Address: [address] [place] [address] Performed By: #### 6 30-4 ####[facility] LABCLIA [id number] [place] [address] [place]#### 56372-7 ####AUBURN LABORATORYCLIA [id number] [place] [address] [place] Epithelial cells LM.HPF (Urine sed) [#/Area] Few Normal [facility] Comment on above: Order Comment: Speci men Type: URINE SPECIMENOrdering Facility: [facility] Address: [address] [place] [address] Performed By: #### 6 30-4 ####[facility] LABCLIA [id number] [place] [address] [place]#### 19464-8 ####[facility] LABORATORYCLIA [id number] [place] [address] [place] Glucose Test strip (U) [Mass/Vol] Negative Normal Trace, Negative [facility] Comment on above: Order Comment: Speci men Type: URINE SPECIMENOrdering Facility: [facility] Address: [address] [place] [address] Performed By: #### 6 30-4 ####[facility] LABCLIA [id number] [place] [address] [place]#### 33198-8 ####[facility] LABORATORYCLIA [id number] [place] [address] [place] Hemoglobin Ql (U) 1+ Abnormal Negative, Trace [facility] Comment on above: Order Comment: Speci men Type: URINE SPECIMENOrdering Facility: [facility] Address: [address] [place] [address] Performed By: #### 6 30-4 ####[facility] LABCLIA [id number] [place] [address] [place]#### 03754-3 ####[facility] LABORATORYCLIA [id number] [place] [address] [place] Ketones Ql (U) Negative Normal Negative, Trace [facility] Comment on above: Order Comment: Speci men Type: URINE SPECIMENOrdering Facility: [facility] Address: [address] [place] [address] Performed By: #### 6 30-4 ####[facility] LABCLIA [id number] [place] [address] [place]#### 75832-8 ####[facility] LABORATORYCLIA [id number] [place] [address] [place] Leukocyte esterase Test strip Ql (U) 500 Lyly/uL Abnormal Negative, 25 Lyly/uL [facility] Comment on above: Order Comment: Speci men Type: URINE SPECIMENOrdering Facility: [facility] Address: [address] [place] [address] Performed By: #### 6 30-4 ####[facility] LABCLIA [id number] [place] [address] [place]#### 31611-8 ####[facility] LABORATORYCLIA [id number] [place] [address] [place] Nitrite Ql (U) 2+ Abnormal Negative [facility] Comment on above: Order Comment: Speci men Type: URINE SPECIMENOrdering Facility: [facility] Address: [address] [place] [address] Performed By: #### 6 30-4 ####[facility] LABCLIA [id number] [place] [address] [place]#### 94573-5 ####AUB[facility] LABORATORYCLIA [id number] [place] [address] [place] pH (U) 6.0 [pH] Normal 5.0-8.0 [facility] Comment on above: Order Comment: Speci men Type: URINE SPECIMENOrdering Facility: [facility] Address: [address] [place] [address] Performed By: #### 6 30-4 ####[facility] LABCLIA [id number] [place] [address] [place]#### 58276-4 ####[facility] LABORATORYCLIA [id number] [place] [address] [place] Protein (U) [Mass/Vol] Trace Normal Trace , Negative [facility] Comment on above: Order Comment: Speci men Type: URINE SPECIMENOrdering Facility: [facility] Address: [address] [place] [address] Performed By: #### 6 30-4 ####[facility] LABCLIA [id number] [place] [address] [place]#### 98436-8 ####[facility] LABORATORYCLIA [id number] [place] [address] [place] RBC LM.HPF (Urine sed) [#/Area] 11-25 /HPF Abnormal 0-3 /HPF [facility] Comment on above: Order Comment: Speci men Type: URINE SPECIMENOrdering Facility: [facility] Address: [address] [place] [address] Performed By: #### 6 30-4 ####[facility] LABCLIA [id number] [address] [place]#### 27570-9 ####AUBURN LABORATORYIA [id number] [address] [place] Specific gravity (U) [Rel density] 1.028 Normal 1.005-1.03 0 [facility] Comment on above: Order Comment: Speci men Type: URINE SPECIMENOrdering Facility: [facility] Address: [address] [place] [address] Performed By: #### 6 30-4 ####[facility] LABCLIA [id number] [address]#### 73259-8 ####[facility] LABORATORYCLIA [id number] [place] [address] [place] Urobilinogen Ql (U) Normal Normal Normal [facility] Comment on above: Order Comment: Speci men Type: URINE SPECIMENOrdering Facility: [facility] Address: [address] [place] [address] Performed By: #### 6 30-4 ####[facility] LABCLIA [id number] [place] [address] [place]#### 27855-6 ####[facility] LABORATORYCLIA [id number] [place] [address] [place] WBC LM.HPF (Urine sed) [#/Area] /[HPF] Abnormal 0-5 /HPF [facility] Comment on above: Order Comment: Speci men Type: URINE SPECIMENOrdering Facility: [facility] Address: [address] [place] [address] Performed By: #### 6 30-4 ####[facility] LABCLIA [id number] [facility] CENTERGilberto [facility] HOSPITALRufina [id number] [place] [address] [place]#### 51877-3 ####[facility] LABORATORYCLIA [id number] [place] [id number] [facility] CNPLyubov 10-27-2024 CNPN Telephone (FVPRAD) -------- TEVIN VILLAGOMEZ ([id number]) 1955 F Date Time Provider Department 10/27/24 ISMAEL MCCONNELL FVKRISTINA During your visit today, we recorded the following information about you: Allergies As of Date: 10/27/2024 (No Known Allergies) Date Reviewed: 10/25/2024 Reviewed by: Christy Perez MD - Fully Assessed Prescriptions as of 10/27/2024 - atorvastatin (LIPITOR) 10 mg tablet Take 1 tablet by mouth every afternoon. - buPROPion SR (WELLBUTRIN SR) 100 mg 12 hr tablet Take 100 mg by mouth two times a day. - folic acid 1 mg tablet Take 1 mg by mouth once daily. - gabapentin (NEURONTIN) 600 mg tablet Take 600 mg by mouth three times a day. - lansoprazole (PREVACID) 30 mg capsule Take 30 mg by mouth once daily. - meloxicam (MOBIC) 7.5 mg tablet Take 7.5 mg by mouth once daily. - mirtazapine (REMERON) 15 mg tablet Take 15 mg by mouth daily at bedtime. - pregabalin (LYRICA) 50 mg capsule Take 50 mg by mouth two times a day. - zolpidem (AMBIEN) 5 mg tablet Take 5 mg by mouth at bedtime as needed. - solifenacin (VESICARE) 5 mg tablet Take 1 tablet by mouth once daily. - cephALEXin (KEFLEX) 250 mg capsule Take 1 capsule by mouth once daily. - estradiol (ESTRACE) 0.01 % (0.1 mg/gram) vaginal cream Apply a pea size amount to the vagina nightly for two weeks then 3 weeks for 1 year - sertraline (ZOLOFT) 50 mg tablet Take 2 tablets by mouth daily at bedtime. - ibuprofen (MOTRIN) 600 mg tablet Take 1 tablet by mouth every 8 hours as needed for pain or fever (specify temp.). - dicyclomine (BENTYL) 20 mg tablet Take 20 mg by mouth two times a day. - sucralfate (CARAFATE) 1 gram tablet Take 1 g by mouth daily at bedtime. - denosumab (PROLIA) 60 mg/mL 60 mg by Injection - FOR ORTHO USE ONLY route once every 6 months. - meclizine (ANTIVERT) 12.5 mg tab Take 1 tablet by mouth two times a day as needed (dizziness). - esomeprazole (NEXIUM) 40 mg capsule Take 40 mg by mouth daily at 6 am. - levothyroxine (SYNTHROID) 25 mcg tablet Take 25 mcg by mouth once daily. - traMADol (ULTRAM) 50 mg tablet Take 50 mg by mouth every 8 hours as needed for pain. - SUMAtriptan (IMITREX) 100 mg tablet Take 1 tablet by mouth as needed. at onset of headache.May repeat after 2 hours. - LORazepam (ATIVAN) 1 mg tablet Take 1 tablet by mouth every 8 hours. - promethazine (PHENERGAN) 25 mg tablet Take 1 tablet by mouth every 4 hours as needed for Nausea/Vomiting. Problem List As Of Date 10/27/2024 Noted Resolved Gastroesophageal reflux disease [K21.9] 04/21/2011 Laparotomy, Excision of esophageal leiomyoma an*04/21/2011 01/30/2015 Atelectasis [J98.11] 04/22/2011 04/27/2011 Postoperative pain [G89.18] 04/22/2011 05/02/2011 Migraine [G43.909] 04/23/2011 03/13/2015 Stress hyperglycemia [R73.9] 04/23/2011 04/23/2011 Tachycardia [R00.0] 04/23/2011 04/23/2011 DVT prophylaxis [[id number]] 04/23/2011 05/02/2011 Discharge Planning [Z71.89] 04/23/2011 05/02/2011 GERD (gastroesophageal reflux disease) [K21.9] 03/13/2015 Neck pain [M54.2] 05/21/2022 Motion sickness [T75.3XXA] 01/30/2015 Osteoarthritis [M19.90] 03/18/2016 Fibromyalgia [M79.7] 07/05/2024 Migraine without aura and without status migrai*03/13/2015 Gastroesophageal reflux disease with esophagiti*03/13/2015 Anxiety disorder [F41.9] 08/22/2024 Obesity (BMI 30-39.9) [E66.9] 10/02/2015 Irritable bowel syndrome [K58.9] 08/06/2016 Abdominal pain [R10.9] 10/02/2016 10/04/2016 Malnutrition of moderate degree (HCC) [E44.0] 10/03/2016 Nausea and vomiting [R11.2] 10/04/2016 Diarrhea [R19.7] 10/04/2016 10/04/2016 Dilated bile duct [K83.8] 10/06/2016 S/P ERCP [Z98.890] 10/06/2016 Hypothyroidism [E03.9] 07/05/2024 Levoscoliosis of thoracic spine [M41.84] Dysphagia [R13.10] Incisional hernia, without obstruction or gangr*06/06/2022 PONV (postoperative nausea and vomiting) [R11.2*06/06/2022 Obesity, Class I, BMI 30-34.9 [E66.811] 06/06/2022 S/P hernia repair [Z98.890, Z87.19] 06/07/2022 Abdominal wall abscess at site of surgical woun*06/27/2022 Leukocytosis [D72.829] 06/27/2022 07/02/2022 Cellulitis of left hand [L03.114] 05/18/2023 Decreased estrogen level [E28.39] 05/18/2023 Kidney stone [N20.0] 02/09/2024 Urinary frequency [R35.0] 08/01/2024 Overactive bladder [N32.81] 07/05/2024 Stress incontinence in female [N39.3] 08/08/2024 Acquired absence of other specified parts of di*02/15/2016 Ventral hernia without obstruction or gangrene *02/15/2016 Spinal stenosis of lumbar region [M48.061] 08/22/2024 Rib pain [R07.81] 08/22/2024 Rash [R21] 08/22/2024 Open wound with complication [T14.8XXA] 08/22/2024 Menopausal osteoporosis [M81.0] 08/22/2024 Age-related osteoporosis without current pathol*08/22/2024 Memory impairment [R41.3] 10/07/2023 Mass of breast [N63.0] 08/22/2024 Lumbosacral spondylosis without myelop (more content not included)... [facility] CNPN Telephone (FVPRAD) -------- DAHLIATEVIN Opal ([id number]) 1955 F Date Time Provider Department 10/27/24 ISMAEL MCCONNELL During your visit today, we recorded the following information about you: Ismael Mcconnell MD 10/27/2024 9:41 AM Signed Christy Perez MD Issa, Khaled, MD; Naeem Adm Ruth Vu II -I saw Rimma in the office today. There is no evidence for an acute abdomen. She feels her episodes of abdominal pain are similar to her gallbladder attacks. I did find a small fat-containing umbilical hernia which is tender with palpation. If EUS is negative, we will proceed with hernia repair. She is also complaining of worsening heartburn and is concerned she may have recurrence of the esophageal stricture that was dilated by Dr. Ojeda in the past. She was wondering if you can address this too? Thanks for your help-Christy Schmidt AND Ruth: Add EGD with possible esophageal dilation to the already scheduled EUS. EGD first then EUS. MD Yesica Beckman Dawn, RN 10/27/2024 10:38 AM Signed EGD order added. ASIM Mujica Dawn, RN 10/27/2024 10:38 AM Signed Addended by: ROXANA ROBERT on: 10/27/2024 10:38 AM Modules accepted: Khoa Hartley Adm AsstRuth II 10/28/2024 2:50 PM Signed EGD added to 11/03/2024 EUS. Ruth Hartley Adm Asst II Allergies As of Date: 10/27/2024 (No Known Allergies) Date Reviewed: 10/25/2024 Reviewed by: Christy Perez MD - Fully Assessed Reason for Visit: Patient Update [1234] Cmt: Needs EGD with possible dilatation with EUS Primary Visit Diagnosis:Heartburn [R12] Order(s):EGD DIAGNOSTIC [GI9] Order #: [id number] FUTURE Prescriptions as of 10/28/2024 - atorvastatin (LIPITOR) 10 mg tablet Take 1 tablet by mouth every afternoon. - buPROPion SR (WELLBUTRIN SR) 100 mg 12 hr tablet Take 100 mg by mouth two times a day. - folic acid 1 mg tablet Take 1 mg by mouth once daily. - gabapentin (NEURONTIN) 600 mg tablet Take 600 mg by mouth three times a day. - lansoprazole (PREVACID) 30 mg capsule Take 30 mg by mouth once daily. - meloxicam (MOBIC) 7.5 mg tablet Take 7.5 mg by mouth once daily. - mirtazapine (REMERON) 15 mg tablet Take 15 mg by mouth daily at bedtime. - pregabalin (LYRICA) 50 mg capsule Take 50 mg by mouth two times a day. - zolpidem (AMBIEN) 5 mg tablet Take 5 mg by mouth at bedtime as needed. - solifenacin (VESICARE) 5 mg tablet Take 1 tablet by mouth once daily. - cephALEXin (KEFLEX) 250 mg capsule Take 1 capsule by mouth once daily. - estradiol (ESTRACE) 0.01 % (0.1 mg/gram) vaginal cream Apply a pea size amount to the vagina nightly for two weeks then 3 weeks for 1 year - sertraline (ZOLOFT) 50 mg tablet Take 2 tablets by mouth daily at bedtime. - ibuprofen (MOTRIN) 600 mg tablet Take 1 tablet by mouth every 8 hours as needed for pain or fever (specify temp.). - dicyclomine (BENTYL) 20 mg tablet Take 20 mg by mouth two times a day. - sucralfate (CARAFATE) 1 gram tablet Take 1 g by mouth daily at bedtime. - denosumab (PROLIA) 60 mg/mL 60 mg by Injection - FOR ORTHO USE ONLY route once every 6 months. - meclizine (ANTIVERT) 12.5 mg tab Take 1 tablet by mouth two times a day as needed (dizziness). - esomeprazole (NEXIUM) 40 mg capsule Take 40 mg by mouth daily at 6 am. - levothyroxine (SYNTHROID) 25 mcg tablet Take 25 mcg by mouth once daily. - traMADol (ULTRAM) 50 mg tablet Take 50 mg by mouth every 8 hours as needed for pain. - SUMAtriptan (IMITREX) 100 mg tablet Take 1 tablet by mouth as needed. at onset of headache.May repeat after 2 hours. - LORazepam (ATIVAN) 1 mg tablet Take 1 tablet by mouth every 8 hours. - promethazine (PHENERGAN) 25 mg tablet Take 1 tablet by mouth every 4 hours as needed for Nausea/Vomiting. Problem List As Of Date 10/27/2024 Noted Resolved Gastroesophageal reflux disease [K21.9] 04/21/2011 Laparotomy, Excision of esophageal leiomyoma an*04/21/2011 01/30/2015 Atelectasis [J98.11] 04/22/2011 04/27/2011 Postoperative pain [G89.18] 04/22/2011 05/02/2011 Migraine [G43.909] 04/23/2011 03/13/2015 Stress hyperglycemia [R73.9] 04/23/2011 04/23/2011 Tachycardia [R00.0] 04/23/2011 04/23/2011 DVT prophylaxis [NPW7717] 04/23/2011 05/02/2011 Discharge Planning [Z71.89] 04/23/2011 05/02/2011 GERD (gastroesophageal reflux disease) [K21.9] 03/13/2015 Neck pain [M54.2] 05/21/2022 Motion sickness [T75.3XXA] 01/30/2015 Osteoarthritis [M19.90] 03/18/2016 Fibromyalgia [M79.7] 07/05/2024 Migraine without aura and without status migrai*03/13/2015 Gastroesophageal reflux disease with esophagiti*03/13/2015 Anxiety disorder [F41.9] 08/22/2024 Obesity (BMI 30-39.9) [E66.9] 10/02/2015 Irritable bowel syndrome [K58.9] 08/06/2016 Abdominal pain [R10.9] 10/02/2016 10/04/2016 Malnutrition of moderate degree (HCC) [E44.0] 10/03/2016 Nausea and vomiting [R11.2] 10/04/2016 D (more content not included)... [facility] 10-25-2024 [facility] Office Visit (GENSBR ) -------- SHAUNNATEVIN MCLEAN ([id number]) 1955 F Date Time Provider Department 10/25/24 2:45 PM CHRISTY PEREZ During your visit today, we recorded the following information about you: Christy Perez MD 10/25/2024 3:18 PM Signed PROGRESS NOTES PATIENT NAME: Tevin Villagomez Assessment ASSESSMENT/PLAN: (K42.9) Umbilical hernia without obstruction or gangrene (K86.89) Dilation of pancreatic duct (HCC) (R11.0) Nausea (R12) Heartburn 1. Umbilical hernia without obstruction or gangrene (K42.9) - Possible small umbilical hernia noted on physical exam, causing tenderness around the umbilical region. - Discussed potential surgical intervention if endoscopic ultrasound (EUS) by Dr. Mcconnell reveals no significant findings. Procedure would involve a small incision to remove any protruding fatty tissue and repair muscle edges with sutures, without the use of mesh. 2. Dilation of pancreatic duct (HCC) (K86.89) - CT scan shows dilated pancreatic duct, more prominent than previous imaging. - Reviewed CT findings with radiologist; MRI deemed unnecessary. - Scheduled for endoscopic ultrasound (EUS) with Dr. Mcconnell on the to further evaluate the pancreatic duct. - Discussed potential outcomes of EUS; best case scenario is no significant findings. - There is no contraindication at this time to proceed with the procedure as her pain is not acute. 3. Nausea (R11.0) 4. Heartburn (R12) - Episodic abdominal pain rated up to 8/10, radiating to sides and back, associated with nausea and heartburn. - Pain exacerbated by bending and squatting; occasional onset during eating. - Currently taking omeprazole once daily at bedtime for heartburn. - Advised to continue omeprazole, ensuring it is taken on an empty stomach for optimal absorption. - Discussed possibility of esophageal dilation during EUS if necessary, as patient has a history of esophageal strictures requiring dilation. No orders found for this visit on 10/25/24. SUBJECTIVE CHIEF COMPLAINT: Patient presents with: Post Op Follow Up INTERVAL HISTORY OF PRESENT ILLNESS: Tevin is a 69-year-old female presenting with episodic abdominal pain, nausea, and heartburn. Tevin reports experiencing episodic abdominal pain, nausea, and heartburn. The abdominal pain is described as similar to previous gallbladder attacks, located across the abdomen above and around the umbilicus, and radiating to the sides and back. The pain is rated as an 8/10 at its worst and is exacerbated by activities such as bending over and squatting, as well as eating, though she denies overeating. Tevin also reports a return of heartburn, which she manages with omeprazole taken once daily at bedtime. She has a history of esophageal dilation performed by Dr. Ojeda. She has obtained a CT scan to rule out lower abdominal wall hernia which was negative for hernias. I also obtained a right groin ultrasound which was also negative for hernia. The CT scan however did show dilated pancreatic duct which has increased in size. She has been referred to Dr. Mcconnell for an endoscopic ultrasound which is scheduled for November 03. 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 Ojeda Gout Hiatal hernia Leiomyoma 04/22/2011 ESOPHAGUS, excised 04/22/2011 Levoscoliosis of thoracic spine Migraine Neck pain cervicle fusion 03/05 Open wound with complication 08/22/2024 Osteoarthritis ? RA Dr Lindsey mtx and [place] Osteoporosis Other specified abdominal hernia without obstruction or gangrene S/P Botox injection 07/2024 botox injection in bladder Vaginal vault prolapse after hysterectomy PAST SURGICAL HISTORY Procedure Laterality Date ARTHROSCOPY KNEE DIAGNOSTIC W/WO SYNOVIAL BX SPX Right 2016 meniscus repair BLADDER SURGERY HX BREAST AUGMENTATION WITH IMPLANT 1991 Breast augmentation BUNIONECTOMY, LAPIDUS-TYPE Bilat. COMPLEX CYSTOMETROGRAM VOIDING PRESSURE STUDIES 08/08/2024 CYSTOURETHROSCOPY 08/08/2024 CYSTOURETHROSCOPY INJ CHEMODENERVATION BLADDER 08/24/2024 EGD 02/2016 Dr. Ojeda EGD - BALLOON DILATION, GUIDE 01/2022 ESOPHAGOGASTRODUODENOSCO PY TRANSORAL DIAGNOSTIC 11/[address] Ojeda EXT HYSTERECTOMY,W/PARTIAL VAGINECTO benign causes I AND D ABSCESS, COMPLICATED N/A 06/28/2022 abdominal wound abscess KIDNEY STONE SURGERY HX Ureteral stents KNEE SURGERY HX Right PALOMO W/O FACETEC FORAMOT/DSC / VRT SGM CRV 02/2014 cervicle fusion LAPAROSCOPY SURG CHOLECYSTECTOMY 04/2011 Cholecystectomy, lap MAMMOTOME BI (more content not included)... Normal [facility] [place] 10-20-2024 CNPN Telephone (CRISTINE) -------- TEVIN VILLAGOMEZ ([id number]) 1955 F Date Time Provider Department 10/20/24 CHRISTY PEREZ During your visit today, we recorded the following information about you: Christy Loja, ASIM 10/20/2024 11:39 AM Signed [facility] Haydee called in and left asking for a callback regarding her grandmothers pain and need for sooner appt. Reviewed chart, instructed Haydee that Dr. Perez has already spoken to Rimma and there is an appt Thursday with Dr. Perez. Haydee is asking about POC if there is no EGD, encouraged Haydee or other family to attend appt with patient Thursday so they are all on the same page. She states work schedules limit their availability to attend appts with patient but she will likely call back in if they have further questions. Allergies As of Date: 10/20/2024 (No Known Allergies) Date Reviewed: 09/29/2024 Reviewed by: Christy Perez MD - Fully Assessed Reason for Visit: Appointment [186] Cmt: Family calling, wants sooner appt for pt Prescriptions as of 10/20/2024 - atorvastatin (LIPITOR) 10 mg tablet Take 1 tablet by mouth every afternoon. - buPROPion SR (WELLBUTRIN SR) 100 mg 12 hr tablet Take 100 mg by mouth two times a day. - folic acid 1 mg tablet Take 1 mg by mouth once daily. - gabapentin (NEURONTIN) 600 mg tablet Take 600 mg by mouth three times a day. - lansoprazole (PREVACID) 30 mg capsule Take 30 mg by mouth once daily. - meloxicam (MOBIC) 7.5 mg tablet Take 7.5 mg by mouth once daily. - mirtazapine (REMERON) 15 mg tablet Take 15 mg by mouth daily at bedtime. - pregabalin (LYRICA) 50 mg capsule Take 50 mg by mouth two times a day. - zolpidem (AMBIEN) 5 mg tablet Take 5 mg by mouth at bedtime as needed. - solifenacin (VESICARE) 5 mg tablet Take 1 tablet by mouth once daily. - cephALEXin (KEFLEX) 250 mg capsule Take 1 capsule by mouth once daily. - estradiol (ESTRACE) 0.01 % (0.1 mg/gram) vaginal cream Apply a pea size amount to the vagina nightly for two weeks then 3 weeks for 1 year - sertraline (ZOLOFT) 50 mg tablet Take 2 tablets by mouth daily at bedtime. - ibuprofen (MOTRIN) 600 mg tablet Take 1 tablet by mouth every 8 hours as needed for pain or fever (specify temp.). - dicyclomine (BENTYL) 20 mg tablet Take 20 mg by mouth two times a day. - sucralfate (CARAFATE) 1 gram tablet Take 1 g by mouth daily at bedtime. - denosumab (PROLIA) 60 mg/mL 60 mg by Injection - FOR ORTHO USE ONLY route once every 6 months. - meclizine (ANTIVERT) 12.5 mg tab Take 1 tablet by mouth two times a day as needed (dizziness). - esomeprazole (NEXIUM) 40 mg capsule Take 40 mg by mouth daily at 6 am. - levothyroxine (SYNTHROID) 25 mcg tablet Take 25 mcg by mouth once daily. - traMADol (ULTRAM) 50 mg tablet Take 50 mg by mouth every 8 hours as needed for pain. - SUMAtriptan (IMITREX) 100 mg tablet Take 1 tablet by mouth as needed. at onset of headache.May repeat after 2 hours. - LORazepam (ATIVAN) 1 mg tablet Take 1 tablet by mouth every 8 hours. - promethazine (PHENERGAN) 25 mg tablet Take 1 tablet by mouth every 4 hours as needed for Nausea/Vomiting. Problem List As Of Date 10/20/2024 Noted Resolved Gastroesophageal reflux disease [K21.9] 04/21/2011 Laparotomy, Excision of esophageal leiomyoma an*04/21/2011 01/30/2015 Atelectasis [J98.11] 04/22/2011 04/27/2011 Postoperative pain [G89.18] 04/22/2011 05/02/2011 Migraine [G43.909] 04/23/2011 03/13/2015 Stress hyperglycemia [R73.9] 04/23/2011 04/23/2011 Tachycardia [R00.0] 04/23/2011 04/23/2011 DVT prophylaxis [CUI8032] 04/23/2011 05/02/2011 Discharge Planning [Z71.89] 04/23/2011 05/02/2011 GERD (gastroesophageal reflux disease) [K21.9] 03/13/2015 Neck pain [M54.2] 05/21/2022 Motion sickness [T75.3XXA] 01/30/2015 Osteoarthritis [M19.90] 03/18/2016 Fibromyalgia [M79.7] 07/05/2024 Migraine without aura and without status migrai*03/13/2015 Gastroesophageal reflux disease with esophagiti*03/13/2015 Anxiety disorder [F41.9] 08/22/2024 Obesity (BMI 30-39.9) [E66.9] 10/02/2015 Irritable bowel syndrome [K58.9] 08/06/2016 Abdominal pain [R10.9] 10/02/2016 10/04/2016 Malnutrition of moderate degree (HCC) [E44.0] 10/03/2016 Nausea and vomiting [R11.2] 10/04/2016 Diarrhea [R19.7] 10/04/2016 10/04/2016 Dilated bile duct [K83.8] 10/06/2016 S/P ERCP [Z98.890] 10/06/2016 Hypothyroidism [E03.9] 07/05/2024 Levoscoliosis of thoracic spine [M41.84] Dysphagia [R13.10] Incisional hernia, without obstruction or gangr*06/06/2022 PONV (postoperative nausea and vomiting) [R11.2*06/06/2022 Obesity, Class I, BMI 30-34.9 [E66.811] 06/06/2022 S/P hernia repair [Z98.890, Z87.19] 06/07/2022 Abdominal wall abscess at site of surgical woun*06/27/2022 Leukocytosis [D72.829] 06/27/2022 07/02/2022 Cellulitis of left hand [L03.114] 05/18/2023 Decrea (more content not included)... Normal [facility] CNPLyubov 10-18-2024 CNPN Telephone ([facility]) -------- TEVIN VILLAGOMEZ ([id number]) 1955 F Date Time Provider Department 10/18/24 CHRISTY PEREZ During your visit today, we recorded the following information about you: Christy Loja RN 10/18/2024 2:25 PM Signed Patient called in reports her abd pain is very severe, difficult to stand up, pain is where previous hernias were. Has not completed testing that was ordered by Dr. Perez at [facility] on 09/29. Would like call back. Attempted call back, straight to voicemail, left message instructing patient to call back. Allergies As of Date: 10/18/2024 (No Known Allergies) Date Reviewed: 09/29/2024 Reviewed by: Christy Perez MD - Fully Assessed Reason for Visit: Returning Patient's Call [408] Prescriptions as of 10/18/2024 - atorvastatin (LIPITOR) 10 mg tablet Take 1 tablet by mouth every afternoon. - buPROPion SR (WELLBUTRIN SR) 100 mg 12 hr tablet Take 100 mg by mouth two times a day. - folic acid 1 mg tablet Take 1 mg by mouth once daily. - gabapentin (NEURONTIN) 600 mg tablet Take 600 mg by mouth three times a day. - lansoprazole (PREVACID) 30 mg capsule Take 30 mg by mouth once daily. - meloxicam (MOBIC) 7.5 mg tablet Take 7.5 mg by mouth once daily. - mirtazapine (REMERON) 15 mg tablet Take 15 mg by mouth daily at bedtime. - pregabalin (LYRICA) 50 mg capsule Take 50 mg by mouth two times a day. - zolpidem (AMBIEN) 5 mg tablet Take 5 mg by mouth at bedtime as needed. - solifenacin (VESICARE) 5 mg tablet Take 1 tablet by mouth once daily. - cephALEXin (KEFLEX) 250 mg capsule Take 1 capsule by mouth once daily. - estradiol (ESTRACE) 0.01 % (0.1 mg/gram) vaginal cream Apply a pea size amount to the vagina nightly for two weeks then 3 weeks for 1 year - sertraline (ZOLOFT) 50 mg tablet Take 2 tablets by mouth daily at bedtime. - ibuprofen (MOTRIN) 600 mg tablet Take 1 tablet by mouth every 8 hours as needed for pain or fever (specify temp.). - dicyclomine (BENTYL) 20 mg tablet Take 20 mg by mouth two times a day. - sucralfate (CARAFATE) 1 gram tablet Take 1 g by mouth daily at bedtime. - denosumab (PROLIA) 60 mg/mL 60 mg by Injection - FOR ORTHO USE ONLY route once every 6 months. - meclizine (ANTIVERT) 12.5 mg tab Take 1 tablet by mouth two times a day as needed (dizziness). - esomeprazole (NEXIUM) 40 mg capsule Take 40 mg by mouth daily at 6 am. - levothyroxine (SYNTHROID) 25 mcg tablet Take 25 mcg by mouth once daily. - traMADol (ULTRAM) 50 mg tablet Take 50 mg by mouth every 8 hours as needed for pain. - SUMAtriptan (IMITREX) 100 mg tablet Take 1 tablet by mouth as needed. at onset of headache.May repeat after 2 hours. - LORazepam (ATIVAN) 1 mg tablet Take 1 tablet by mouth every 8 hours. - promethazine (PHENERGAN) 25 mg tablet Take 1 tablet by mouth every 4 hours as needed for Nausea/Vomiting. Problem List As Of Date 10/18/2024 Noted Resolved Gastroesophageal reflux disease [K21.9] 04/21/2011 Laparotomy, Excision of esophageal leiomyoma an*04/21/2011 01/30/2015 Atelectasis [J98.11] 04/22/2011 04/27/2011 Postoperative pain [G89.18] 04/22/2011 05/02/2011 Migraine [G43.909] 04/23/2011 03/13/2015 Stress hyperglycemia [R73.9] 04/23/2011 04/23/2011 Tachycardia [R00.0] 04/23/2011 04/23/2011 DVT prophylaxis [[id number]] 04/23/2011 05/02/2011 Discharge Planning [Z71.89] 04/23/2011 05/02/2011 GERD (gastroesophageal reflux disease) [K21.9] 03/13/2015 Neck pain [M54.2] 05/21/2022 Motion sickness [T75.3XXA] 01/30/2015 Osteoarthritis [M19.90] 03/18/2016 Fibromyalgia [M79.7] 07/05/2024 Migraine without aura and without status migrai*03/13/2015 Gastroesophageal reflux disease with esophagiti*03/13/2015 Anxiety disorder [F41.9] 08/22/2024 Obesity (BMI 30-39.9) [E66.9] 10/02/2015 Irritable bowel syndrome [K58.9] 08/06/2016 Abdominal pain [R10.9] 10/02/2016 10/04/2016 Malnutrition of moderate degree (HCC) [E44.0] 10/03/2016 Nausea and vomiting [R11.2] 10/04/2016 Diarrhea [R19.7] 10/04/2016 10/04/2016 Dilated bile duct [K83.8] 10/06/2016 S/P ERCP [Z98.890] 10/06/2016 Hypothyroidism [E03.9] 07/05/2024 Levoscoliosis of thoracic spine [M41.84] Dysphagia [R13.10] Incisional hernia, without obstruction or gangr*06/06/2022 PONV (postoperative nausea and vomiting) [R11.2*06/06/2022 Obesity, Class I, BMI 30-34.9 [E66.811] 06/06/2022 S/P hernia repair [Z98.890, Z87.19] 06/07/2022 Abdominal wall abscess at site of surgical woun*06/27/2022 Leukocytosis [D72.829] 06/27/2022 07/02/2022 Cellulitis of left hand [L03.114] 05/18/2023 Decreased estrogen level [E28.39] 05/18/2023 Kidney stone [N20.0] 02/09/2024 Urinary frequency [R35.0] 08/01/2024 Overactive bladder [N32.81] 07/05/2024 Stress incontinence in female [N39.3] 08/08/2024 Acquired absence of other specified parts of di*02/15/2016 Ventral hernia witho (more content not included)... [facility] TEVIN VILLAGOMEZ ([id number]) 1955 F Date Time Provider Department 10/18/24 ISMAEL MCCONNELL During your visit today, we recorded the following information about you: Naeem Vu Ruth II 10/18/2024 3:09 PM Signed Roxana, Patient scheduled for EGD w/Dr. Mcconnell on 11/15/2024, should this be EUS. Please review and advise. Thank you. Ruth [facility] Roxana Robert RN 10/18/2024 3:47 PM Addendum Please refer to Dr. Perez's telephone encounter dated 09/08/2024. Pt needs to be scheduled for EUS w/ FNA. Spoke with pt. She is aware procedure needs to be rescheduled to [place] as order reflects and Ruth will call her to do so. No weight loss. No known family Hx pancreatic CA. Does not smoke or drink. She is currently having epigastric pain 01/29. She has nausea and takes Zofran which helps a l Denies fever or chills. She states she called Dr. Perez's office and is waiting for a call back but she is contemplating going to the ER. I advised her if she decides to go to ER to have someone take her to [place] if she is able to do so. She verbalized understanding. Ruth, please call pt to rescheduled EUS. Thank you, ASIM Mujica Khaled, MD 09/15/24 10:[address] scan of the abdomen pelvis 08/25/2024: Pneumobilia. Stable dilated common bile duct. Pancreas did not show any mass. Dilated pancreatic duct measuring 6 mm previously [address] scan images. Schedule the patient for linear EUS with possible FNA in 1 to 2 months. Ask the patient about any biliary or pancreatic symptoms. Weight loss? Family history of pancreatic cancer? Smoking drinking. She had ERCP 10/04/[address] Ojeda which does explain pneumobilia. Explain the procedure to the patient details including potential complications: Bleeding Pancreatitis Infection MD Naeem BeckmanRuth II 10/19/2024 10:36 AM Signed Spoke with patient, scheduled EUS , 11/03/2024 at [facility] [place]. Ruth Hartley Adm Asst II Christy Loja, ASIM 10/19/2024 12:46 PM Signed Attempted to call patient, phone goes directly to , left message for patient to call back. Ismael Mcconnell MD 10/20/2024 10:58 AM Signed Abdominal pain needs to be addressed prior to proceeding with EUS. I have never seen this patient in the past. I need an update on her clinical condition. She is scheduled for EUS 11/03/2024. Let me know prior to her procedure. MD Chris Beckman Kristen E, MD 10/20/2024 11:20 AM Signed I just talked to Rimma - I will see her next Thursday to assess. Roxana Robert RN 10/25/2024 3:56 PM Signed Pt saw Dr. Perez today: Assessment ASSESSMENT/PLAN: (K42.9) Umbilical hernia without obstruction or gangrene (K86.89) Dilation of pancreatic duct (HCC) (R11.0) Nausea (R12) Heartburn 1. Umbilical hernia without obstruction or gangrene (K42.9) - Possible small umbilical hernia noted on physical exam, causing tenderness around the umbilical region. - Discussed potential surgical intervention if endoscopic ultrasound (EUS) by Dr. Mcconnell reveals no significant findings. Procedure would involve a small incision to remove any protruding fatty tissue and repair muscle edges with sutures, without the use of mesh. 2. Dilation of pancreatic duct (HCC) (K86.89) - CT scan shows dilated pancreatic duct, more prominent than previous imaging. - Reviewed CT findings with radiologist; MRI deemed unnecessary. - Scheduled for endoscopic ultrasound (EUS) with Dr. Mcconnell on the to further evaluate the pancreatic duct. - Discussed potential outcomes of EUS; best case scenario is no significant findings. - There is no contraindication at this time to proceed with the procedure as her pain is not acute. 3. Nausea (R11.0) 4. Heartburn (R12) - Episodic abdominal pain rated up to 8/10, radiating to sides and back, associated with nausea and heartburn. - Pain exacerbated by bending and squatting; occasional onset during eating. - Currently taking omeprazole once daily at bedtime for heartburn. - Advised to continue omeprazole, ensuring it is taken on an empty stomach for optimal absorption. - Discussed possibility of esophageal dilation during EUS if necessary, as patient has a history of esophageal strictures requiring dilation. No orders found for this visit on 10/25/24. Allergies As of Date: 10/18/2024 (No Known Allergies) Date Reviewed: 09/29/2024 Reviewed by: Christy Perez MD - Fully Assessed Reason for Visit: Procedure [88] Cmt: Needs EUS w/ possible FNA Prescriptions as of 10/25/2024 - atorvastatin (LIPITOR) 10 mg tablet Take 1 tablet by mouth every afternoon. - buPROPion SR (WELLBUTRIN SR) 100 mg 12 hr tablet Take 100 mg by mouth two times a day. - folic acid 1 mg tablet Take 1 mg by mouth once daily. - gabapentin (NEURONTIN) 600 mg tablet (more content not included)... Normal [facility] SHAHZADNon 10-05-2024 FLORINDA Telephone (RAHEEM) -------- TEVIN VILLAGOMEZ ([id number]) 1955 F Date Time Provider Department 10/05/24 HAYDEE WEBB During your visit today, we recorded the following information about you: Kenny Carrillo RN 10/05/2024 8:47 AM Signed Phone encounter: LVM to see how patient was doing after botox procedure. Will send [facility] message. Last visit: Office visit with provider Haydee Webb APRN CNP on date 08/24/2024: The patient was consented for the procedure and all of her questions were answered. The patient was placed in dorsal lithotomy position and prepped and draped in sterile fashion. 100 units of botox was injected in .5 cc aliquots divided 10 cc of normal saline used to reconstitute the botox into the Detrusor muscle while using a flexible cystoscope and an Injetak needle. All 20 sites were injected just superior to the trigone. A 1 cc flush with preservative-free normal saline was injected to complete the procedure. The patient tolerated the procedure well. I personally performed the entire procedure. Haydee Webb APRN.SHAHZAD Future appointments: Future Appointments Date Time Provider Department Center 11/15/2024 2:30 PM [facility] 03/01/2025 1:00 PM Hyadee Webb APRN.SHAHZAD [facility] Karen Serrano Kenny Carrillo RN October 05, 2024 8:37 AM Allergies As of Date: 10/05/2024 (No Known Allergies) Date Reviewed: 09/29/2024 Reviewed by: Christy Perez MD - Fully Assessed Prescriptions as of 10/05/2024 - atorvastatin (LIPITOR) 10 mg tablet Take 1 tablet by mouth every afternoon. - buPROPion SR (WELLBUTRIN SR) 100 mg 12 hr tablet Take 100 mg by mouth two times a day. - folic acid 1 mg tablet Take 1 mg by mouth once daily. - gabapentin (NEURONTIN) 600 mg tablet Take 600 mg by mouth three times a day. - lansoprazole (PREVACID) 30 mg capsule Take 30 mg by mouth once daily. - meloxicam (MOBIC) 7.5 mg tablet Take 7.5 mg by mouth once daily. - mirtazapine (REMERON) 15 mg tablet Take 15 mg by mouth daily at bedtime. - pregabalin (LYRICA) 50 mg capsule Take 50 mg by mouth two times a day. - zolpidem (AMBIEN) 5 mg tablet Take 5 mg by mouth at bedtime as needed. - mirabegron (MYRBETRIQ) 25 mg Tb24 Take 1 tablet by mouth once daily. - solifenacin (VESICARE) 5 mg tablet Take 1 tablet by mouth once daily. - cephALEXin (KEFLEX) 250 mg capsule Take 1 capsule by mouth once daily. - estradiol (ESTRACE) 0.01 % (0.1 mg/gram) vaginal cream Apply a pea size amount to the vagina nightly for two weeks then 3 weeks for 1 year - sertraline (ZOLOFT) 50 mg tablet Take 2 tablets by mouth daily at bedtime. - ibuprofen (MOTRIN) 600 mg tablet Take 1 tablet by mouth every 8 hours as needed for pain or fever (specify temp.). - dicyclomine (BENTYL) 20 mg tablet Take 20 mg by mouth two times a day. - sucralfate (CARAFATE) 1 gram tablet Take 1 g by mouth daily at bedtime. - denosumab (PROLIA) 60 mg/mL 60 mg by Injection - FOR ORTHO USE ONLY route once every 6 months. - meclizine (ANTIVERT) 12.5 mg tab Take 1 tablet by mouth two times a day as needed (dizziness). - esomeprazole (NEXIUM) 40 mg capsule Take 40 mg by mouth daily at 6 am. - levothyroxine (SYNTHROID) 25 mcg tablet Take 25 mcg by mouth once daily. - traMADol (ULTRAM) 50 mg tablet Take 50 mg by mouth every 8 hours as needed for pain. - SUMAtriptan (IMITREX) 100 mg tablet Take 1 tablet by mouth as needed. at onset of headache.May repeat after 2 hours. - LORazepam (ATIVAN) 1 mg tablet Take 1 tablet by mouth every 8 hours. - promethazine (PHENERGAN) 25 mg tablet Take 1 tablet by mouth every 4 hours as needed for Nausea/Vomiting. Problem List As Of Date 10/05/2024 Noted Resolved Gastroesophageal reflux disease [K21.9] 04/21/2011 Laparotomy, Excision of esophageal leiomyoma an*04/21/2011 01/30/2015 Atelectasis [J98.11] 04/22/2011 04/27/2011 Postoperative pain [G89.18] 04/22/2011 05/02/2011 Migraine [G43.909] 04/23/2011 03/13/2015 Stress hyperglycemia [R73.9] 04/23/2011 04/23/2011 Tachycardia [R00.0] 04/23/2011 04/23/2011 DVT prophylaxis [[id number]] 04/23/2011 05/02/2011 Discharge Planning [Z71.89] 04/23/2011 05/02/2011 GERD (gastroesophageal reflux disease) [K21.9] 03/13/2015 Neck pain [M54.2] 05/21/2022 Motion sickness [T75.3XXA] 01/30/2015 Osteoarthritis [M19.90] 03/18/2016 Fibromyalgia [M79.7] 07/05/2024 Migraine without aura and without status migrai*03/13/2015 Gastroesophageal reflux disease with esophagiti*03/13/2015 Anxiety disorder [F41.9] 08/22/2024 Obesity (BMI 30-39.9) [E66.9] 10/02/2015 Irritable bowel syndrome [K58.9] 08/06/2016 Abdominal pain [R10.9] 10/02/2016 10/04/2016 Malnutrition of moderate degree (HCC) [E44.0] 10/03/2016 Nausea and vomiting [R11.2] 10/04/2016 Diarrhea [R19.7] 10/04/2016 10/04/2016 Dilated bile duct [K83.8] 10/06/2016 S/P ERCP [Z98.890] 10/06 (more content not included)... Normal [facility] CNOVon 09-29-2024 CNOV Office Visit (GENSME ) -------- SHAUNNATEVIN MCLEAN ([id number]) 1955 F Date Time Provider Department 09/29/24 8:30 AM CHRISTY PEREZ During your visit today, we recorded the following information about you: Christy Perez MD 09/29/2024 11:03 AM Signed PROGRESS NOTES PATIENT NAME: Tevin Villagomez Assessment ASSESSMENT/PLAN: (R10.30) Lower abdominal pain (primary encounter diagnosis) Rimma presents in follow-up of her lower abdominal pain. On workup she was found to have a dilated pancreatic duct on CT scan. She was found to have mild elevation of her alkaline phosphatase. She is status post laparoscopic cholecystectomy 15 years ago. I did review the CT scan with the radiologist. No masses identified. I do not feel MRCP would be of benefit. She is scheduled to have an endoscopic ultrasound with Dr. Mcconnell in October. She also had a right groin ultrasound which does not demonstrate an inguinal or femoral hernia. CT scan also negative for hernia. At this time her symptoms are tolerable. If her symptoms worsen, we discussed proceeding with diagnostic laparoscopy to evaluate for abdominal wall adhesions. She is comfortable with this plan. She will call if her symptoms worsen. No orders found for this visit on 09/29/24. SUBJECTIVE CHIEF COMPLAINT: Patient presents with: Follow Up: follow up 09/08 Bloodwork per 08/25 CT ABD/PEL INTERVAL HISTORY OF PRESENT ILLNESS: Rimma is a 69-year-old female who presents in follow-up of her recent CT scan as well as right hip ultrasound. She continues to have lower abdominal pain that is almost always present. She rates this as a 6-7 out of 10. It is worse with activities or with sitting. The pain will occur daily and last throughout the day but not all day. Sometimes the pain can wake her in the morning. Wearing an abdominal binder does help. She reports having irregular bowel movements but the bowel movements do not seem to irritate the pain. 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 Ojeda Gout Hiatal hernia Leiomyoma 04/22/2011 ESOPHAGUS, excised 04/22/2011 Levoscoliosis of thoracic spine Migraine Neck pain cervicle fusion 03/05 Open wound with complication 08/22/2024 Osteoarthritis ? RA Dr Lindsey mtx and [place] Osteoporosis Other specified abdominal hernia without obstruction or gangrene S/P Botox injection 07/2024 botox injection in bladder Vaginal vault prolapse after hysterectomy PAST SURGICAL HISTORY Procedure Laterality Date ARTHROSCOPY KNEE DIAGNOSTIC W/WO SYNOVIAL BX SPX Right 2016 meniscus repair BLADDER SURGERY HX BREAST AUGMENTATION WITH IMPLANT 1991 Breast augmentation BUNIONECTOMY, LAPIDUS-TYPE Bilat. COMPLEX CYSTOMETROGRAM VOIDING PRESSURE STUDIES 08/08/2024 CYSTOURETHROSCOPY 08/08/2024 CYSTOURETHROSCOPY INJ CHEMODENERVATION BLADDER 08/24/2024 EGD 02/2016 Dr. Ojeda EGD - BALLOON DILATION, GUIDE 01/2022 ESOPHAGOGASTRODUODENOSCO PY TRANSORAL DIAGNOSTIC 11/[address] Ojeda EXT HYSTERECTOMY,W/PARTIAL VAGINECTO benign causes I AND D ABSCESS, COMPLICATED N/A 06/28/2022 abdominal wound abscess KIDNEY STONE SURGERY HX Ureteral stents KNEE SURGERY HX Right PALOMO W/O FACETEC FORAMOT/DSC 06/23 VRT SGM CRV 02/2014 cervicle fusion LAPAROSCOPY SURG CHOLECYSTECTOMY 04/2011 Cholecystectomy, lap MAMMOTOME BIOPSY RIGHT 2013 NECK SURGERY HX PAST SURGICAL HISTORY OF 2015 MOHS for basal cell on her back PAST SURGICAL HISTORY OF 03/2016 R TKA PAST SURGICAL HISTORY OF 06/28/2022 Incision and drainage of abdominal wound infection/abscess. Dr. Glynn REPAIR INCISIONAL HERNIA,REDUCIBLE 06/06/[address] Perez RPR PARAESOPH HIATAL HERNIA W/LAPT W/O MESH 04/22/2011 Laparotomy, Excision of esophageal leiomyoma and repair of esophageal wall, Esophagogastroscopy, Aditi fundoplication for Short esophagus, Type I hiatal hernia and Esophageal leiomyoma TONSILLECTOMY PRIMARY/SECONDARY Tonsillectomy ALLERGIES: Patient has no known allergies. MEDICATIONS: Current Outpatient Medications Medication Sig atorvastatin (LIPITOR) 10 mg tablet Take 1 tablet by mouth every afternoon. buPROPion SR (WELLBUTRIN SR) 100 mg 12 hr tablet Take 100 mg by mouth two times a day. folic acid 1 mg tablet Take 1 mg by mouth once daily. gabapentin (NEURONTIN) 600 mg tablet Take 600 mg by mouth three times a day. lansoprazole (PREVACID) 30 mg capsule Take 30 mg by mouth once daily. meloxicam (MOBIC) 7.5 mg tablet Take 7.5 mg by mouth once daily. mirtazapine (REMERON) 15 mg tablet Take 15 mg by mouth (more content not included)... Normal [facility] [place] 09-28-2024 SHAHZADN Telephone (EZRA) -------- TEVIN VILLAGOMEZ ([id number]) 1955 F Date Time Provider Department 09/28/24 CHRISTY PEREZ During your visit today, we recorded the following information about you: Christy Perez MD 09/28/2024 3:15 PM Signed Attempted to call with US results - no answer. She is scheduled to see me tomorrow. Allergies As of Date: 09/28/2024 (No Known Allergies) Date Reviewed: 08/24/2024 Reviewed by: Krysta Martin RN - Fully Assessed Reason for Visit: Results [95] Prescriptions as of 09/28/2024 - atorvastatin (LIPITOR) 10 mg tablet Take 1 tablet by mouth every afternoon. - buPROPion SR (WELLBUTRIN SR) 100 mg 12 hr tablet Take 100 mg by mouth two times a day. - folic acid 1 mg tablet Take 1 mg by mouth once daily. - gabapentin (NEURONTIN) 600 mg tablet Take 600 mg by mouth three times a day. - lansoprazole (PREVACID) 30 mg capsule Take 30 mg by mouth once daily. - meloxicam (MOBIC) 7.5 mg tablet Take 7.5 mg by mouth once daily. - mirtazapine (REMERON) 15 mg tablet Take 15 mg by mouth daily at bedtime. - pregabalin (LYRICA) 50 mg capsule Take 50 mg by mouth two times a day. - zolpidem (AMBIEN) 5 mg tablet Take 5 mg by mouth at bedtime as needed. - mirabegron (MYRBETRIQ) 25 mg Tb24 Take 1 tablet by mouth once daily. - solifenacin (VESICARE) 5 mg tablet Take 1 tablet by mouth once daily. - cephALEXin (KEFLEX) 250 mg capsule Take 1 capsule by mouth once daily. - estradiol (ESTRACE) 0.01 % (0.1 mg/gram) vaginal cream Apply a pea size amount to the vagina nightly for two weeks then 3 weeks for 1 year - sertraline (ZOLOFT) 50 mg tablet Take 2 tablets by mouth daily at bedtime. - ibuprofen (MOTRIN) 600 mg tablet Take 1 tablet by mouth every 8 hours as needed for pain or fever (specify temp.). - dicyclomine (BENTYL) 20 mg tablet Take 20 mg by mouth two times a day. - sucralfate (CARAFATE) 1 gram tablet Take 1 g by mouth daily at bedtime. - denosumab (PROLIA) 60 mg/mL 60 mg by Injection - FOR ORTHO USE ONLY route once every 6 months. - meclizine (ANTIVERT) 12.5 mg tab Take 1 tablet by mouth two times a day as needed (dizziness). - esomeprazole (NEXIUM) 40 mg capsule Take 40 mg by mouth daily at 6 am. - levothyroxine (SYNTHROID) 25 mcg tablet Take 25 mcg by mouth once daily. - traMADol (ULTRAM) 50 mg tablet Take 50 mg by mouth every 8 hours as needed for pain. - SUMAtriptan (IMITREX) 100 mg tablet Take 1 tablet by mouth as needed. at onset of headache.May repeat after 2 hours. - LORazepam (ATIVAN) 1 mg tablet Take 1 tablet by mouth every 8 hours. - promethazine (PHENERGAN) 25 mg tablet Take 1 tablet by mouth every 4 hours as needed for Nausea/Vomiting. Problem List As Of Date 09/28/2024 Noted Resolved Gastroesophageal reflux disease [K21.9] 04/21/2011 Laparotomy, Excision of esophageal leiomyoma an*04/21/2011 01/30/2015 Atelectasis [J98.11] 04/22/2011 04/27/2011 Postoperative pain [G89.18] 04/22/2011 05/02/2011 Migraine [G43.909] 04/23/2011 03/13/2015 Stress hyperglycemia [R73.9] 04/23/2011 04/23/2011 Tachycardia [R00.0] 04/23/2011 04/23/2011 DVT prophylaxis [[id number]] 04/23/2011 05/02/2011 Discharge Planning [Z71.89] 04/23/2011 05/02/2011 GERD (gastroesophageal reflux disease) [K21.9] 03/13/2015 Neck pain [M54.2] 05/21/2022 Motion sickness [T75.3XXA] 01/30/2015 Osteoarthritis [M19.90] 03/18/2016 Fibromyalgia [M79.7] 07/05/2024 Migraine without aura and without status migrai*03/13/2015 Gastroesophageal reflux disease with esophagiti*03/13/2015 Anxiety disorder [F41.9] 08/22/2024 Obesity (BMI 30-39.9) [E66.9] 10/02/2015 Irritable bowel syndrome [K58.9] 08/06/2016 Abdominal pain [R10.9] 10/02/2016 10/04/2016 Malnutrition of moderate degree (HCC) [E44.0] 10/03/2016 Nausea and vomiting [R11.2] 10/04/2016 Diarrhea [R19.7] 10/04/2016 10/04/2016 Dilated bile duct [K83.8] 10/06/2016 S/P ERCP [Z98.890] 10/06/2016 Hypothyroidism [E03.9] 07/05/2024 Levoscoliosis of thoracic spine [M41.84] Dysphagia [R13.10] Incisional hernia, without obstruction or gangr*06/06/2022 PONV (postoperative nausea and vomiting) [R11.2*06/06/2022 Obesity, Class I, BMI 30-34.9 [E66.811] 06/06/2022 S/P hernia repair [Z98.890, Z87.19] 06/07/2022 Abdominal wall abscess at site of surgical woun*06/27/2022 Leukocytosis [D72.829] 06/27/2022 07/02/2022 Cellulitis of left hand [L03.114] 05/18/2023 Decreased estrogen level [E28.39] 05/18/2023 Kidney stone [N20.0] 02/09/2024 Urinary frequency [R35.0] 08/01/2024 Overactive bladder [N32.81] 07/05/2024 Stress incontinence in female [N39.3] 08/08/2024 Acquired absence of other specified parts of di*02/15/2016 Ventral hernia without obstruction or gangrene *02/15/2016 Spinal stenosis of lumbar region [M48.061] 08/22/2024 Rib pain [R07.81] 08/22/2024 Rash [R21] 08/22/2024 Open wound with complication (more content not included)... Normal [facility] HIP RTon 09-27-2024 US HIP RT * * *Final Report* * * DATE OF EXAM: Sep 27 2024 2:50PM [facility]8 - US HIP RT / PROCEDURE REASON: Right groin pain * * * * Physician Interpretation * * * * MSK_US RIGHT MEDIAL HIP ULTRASOUND: CLINICAL INFORMATION: Right groin pain. TECHNIQUE: Dixon-scale real-time ultrasound of the medial hip and groin with dynamic imaging and power Doppler examination was performed. Images were saved to the permanent image archive. v2-20. COMPARISON: CT 08/25/2024, 02/09/2024 FINDINGS: HERNIA EVALUATION: No inguinal or femoral hernia. MEDIAL HIP NERVES: LATERAL FEMORAL CUTANEOUS NERVE: Normal appearance. ILIOINGUINAL NERVE: Not well-visualized. ILIOHYPOGASTRIC NERVE: Not well visualized. GENITOFEMORAL NERVE: Not visualized. RECTUS ABDOMINIS/ADDUCTOR APONEUROTIC COMPLEX: No acute tearing of the aponeurotic/adductor tendon attachment. Mild chronic avulsive changes. No increased power doppler signal. ADDUCTOR MUSCLES: The pectineus, adductor longus, adductor brevis, adductor von, and gracilis muscles appear intact. PUBIC SYMPHYSIS: Maintained. Normal dynamic examination. IMPRESSION: No inguinal or femoral hernia identified. Personal Insurance Advisor: [facility] Transcribe Date/Time: Sep 27 2024 3:04P Dictated by : NHAN DUBON MD This examination was interpreted and the report reviewed and electronically signed by: NHAN DUBON MD on Sep 27 2024 4:51PM EST [id number] Normal [facility] US Hip - righton 09-27-2024 IMPRESSION: No inguinal or femoral hernia identified. Personal Insurance Advisor: [facility] Transcribe Date/Time: Sep 27 2024 3:04P Dictated by : NHAN DUBON MD This examination was interpreted and the report reviewed and electronically signed by: NHAN DUBON MD on Sep 27 2024 4:51PM EST DIVISION OF RADIOLOGY * * *Final Report* * * DATE OF EXAM: Sep 27 2024 2:50PM [facility] 1148 - US HIP RT / PROCEDURE REASON: Right groin pain * * * * Physician Interpretation * * * * MSK_US RIGHT MEDIAL HIP ULTRASOUND: CLINICAL INFORMATION: Right groin pain. TECHNIQUE: Dixon-scale real-time ultrasound of the medial hip and groin with dynamic imaging and power Doppler examination was performed. Images were saved to the permanent image archive. v2-20. COMPARISON: CT 08/25/2024, 02/09/2024 FINDINGS: HERNIA EVALUATION: No inguinal or femoral hernia. MEDIAL HIP NERVES: LATERAL FEMORAL CUTANEOUS NERVE: Normal appearance. ILIOINGUINAL NERVE: Not well-visualized. ILIOHYPOGASTRIC NERVE: Not well visualized. GENITOFEMORAL NERVE: Not visualized. RECTUS ABDOMINIS/ADDUCTOR APONEUROTIC COMPLEX: No acute tearing of the aponeurotic/adductor tendon attachment. Mild chronic avulsive changes. No increased power doppler signal. ADDUCTOR MUSCLES: The pectineus, adductor longus, adductor brevis, adductor von, and gracilis muscles appear intact. PUBIC SYMPHYSIS: Maintained. Normal dynamic examination. DIVISION OF RADIOLOGY Provider, [facility] - 09/27/2024 * * *Final Report* * * DATE OF EXAM: Sep 27 2024 2:50PM [facility] - US HIP RT / PROCEDURE REASON: Right groin pain * * * * Physician Interpretation * * * * MSK_US RIGHT MEDIAL HIP ULTRASOUND: CLINICAL INFORMATION: Right groin pain. TECHNIQUE: Dixon-scale real-time ultrasound of the medial hip and groin with dynamic imaging and power Doppler examination was performed. Images were saved to the permanent image archive. v2-20. COMPARISON: CT 08/25/2024, 02/09/2024 FINDINGS: HERNIA EVALUATION: No inguinal or femoral hernia. MEDIAL HIP NERVES: LATERAL FEMORAL CUTANEOUS NERVE: Normal appearance. ILIOINGUINAL NERVE: Not well-visualized. ILIOHYPOGASTRIC NERVE: Not well visualized. GENITOFEMORAL NERVE: Not visualized. RECTUS ABDOMINIS/ADDUCTOR APONEUROTIC COMPLEX: No acute tearing of the aponeurotic/adductor tendon attachment. Mild chronic avulsive changes. No increased power doppler signal. ADDUCTOR MUSCLES: The pectineus, adductor longus, adductor brevis, adductor von, and gracilis muscles appear intact. PUBIC SYMPHYSIS: Maintained. Normal dynamic examination. IMPRESSION IMPRESSION: No inguinal or femoral hernia identified. Personal Insurance Advisor: [facility] Transcribe Date/Time: Sep 27 2024 3:04P Dictated by : NHAN DUBON MD This examination was interpreted and the report reviewed and electronically signed by: NHAN DUBON MD on Sep 27 2024 4:51PM [facility] Radiology Study observation (narrative) Marilynfarhana gilberto [facility] Hip - rightOrdered By: Cc f Provider on 09-27-2024 [facility] [place] 09-22-2024 CNPN Telephone (AllworxE) -------- TEVIN VILLAGOMEZ ([id number]) 1955 F Date Time Provider Department 09/22/24 CHRISTY PEREZ During your visit today, we recorded the following information about you: Christy Loja, ASIM 09/22/2024 2:49 PM Signed Patient called in, she would like to know if her appt with Dr. Perez on 09/29 is just routine f/u or if she is having a procedure that day. Returned call, no answer, left VM that appt on 09/29 is routine and there will not be a procedure on that day. Provided callback number if she has further questions Allergies As of Date: 09/22/2024 (No Known Allergies) Date Reviewed: 08/24/2024 Reviewed by: Krysta Martin, ASIM - Fully Assessed Reason for Visit: Returning Patient's Call [408] Prescriptions as of 09/22/2024 - atorvastatin (LIPITOR) 10 mg tablet Take 1 tablet by mouth every afternoon. - buPROPion SR (WELLBUTRIN SR) 100 mg 12 hr tablet Take 100 mg by mouth two times a day. - folic acid 1 mg tablet Take 1 mg by mouth once daily. - gabapentin (NEURONTIN) 600 mg tablet Take 600 mg by mouth three times a day. - lansoprazole (PREVACID) 30 mg capsule Take 30 mg by mouth once daily. - meloxicam (MOBIC) 7.5 mg tablet Take 7.5 mg by mouth once daily. - mirtazapine (REMERON) 15 mg tablet Take 15 mg by mouth daily at bedtime. - pregabalin (LYRICA) 50 mg capsule Take 50 mg by mouth two times a day. - zolpidem (AMBIEN) 5 mg tablet Take 5 mg by mouth at bedtime as needed. - mirabegron (MYRBETRIQ) 25 mg Tb24 Take 1 tablet by mouth once daily. - solifenacin (VESICARE) 5 mg tablet Take 1 tablet by mouth once daily. - cephALEXin (KEFLEX) 250 mg capsule Take 1 capsule by mouth once daily. - estradiol (ESTRACE) 0.01 % (0.1 mg/gram) vaginal cream Apply a pea size amount to the vagina nightly for two weeks then 3 weeks for 1 year - sertraline (ZOLOFT) 50 mg tablet Take 2 tablets by mouth daily at bedtime. - ibuprofen (MOTRIN) 600 mg tablet Take 1 tablet by mouth every 8 hours as needed for pain or fever (specify temp.). - dicyclomine (BENTYL) 20 mg tablet Take 20 mg by mouth two times a day. - sucralfate (CARAFATE) 1 gram tablet Take 1 g by mouth daily at bedtime. - denosumab (PROLIA) 60 mg/mL 60 mg by Injection - FOR ORTHO USE ONLY route once every 6 months. - meclizine (ANTIVERT) 12.5 mg tab Take 1 tablet by mouth two times a day as needed (dizziness). - esomeprazole (NEXIUM) 40 mg capsule Take 40 mg by mouth daily at 6 am. - levothyroxine (SYNTHROID) 25 mcg tablet Take 25 mcg by mouth once daily. - traMADol (ULTRAM) 50 mg tablet Take 50 mg by mouth every 8 hours as needed for pain. - SUMAtriptan (IMITREX) 100 mg tablet Take 1 tablet by mouth as needed. at onset of headache.May repeat after 2 hours. - LORazepam (ATIVAN) 1 mg tablet Take 1 tablet by mouth every 8 hours. - promethazine (PHENERGAN) 25 mg tablet Take 1 tablet by mouth every 4 hours as needed for Nausea/Vomiting. Problem List As Of Date 09/22/2024 Noted Resolved Gastroesophageal reflux disease [K21.9] 04/21/2011 Laparotomy, Excision of esophageal leiomyoma an*04/21/2011 01/30/2015 Atelectasis [J98.11] 04/22/2011 04/27/2011 Postoperative pain [G89.18] 04/22/2011 05/02/2011 Migraine [G43.909] 04/23/2011 03/13/2015 Stress hyperglycemia [R73.9] 04/23/2011 04/23/2011 Tachycardia [R00.0] 04/23/2011 04/23/2011 DVT prophylaxis [[id number]] 04/23/2011 05/02/2011 Discharge Planning [Z71.89] 04/23/2011 05/02/2011 GERD (gastroesophageal reflux disease) [K21.9] 03/13/2015 Neck pain [M54.2] 05/21/2022 Motion sickness [T75.3XXA] 01/30/2015 Osteoarthritis [M19.90] 03/18/2016 Fibromyalgia [M79.7] 07/05/2024 Migraine without aura and without status migrai*03/13/2015 Gastroesophageal reflux disease with esophagiti*03/13/2015 Anxiety disorder [F41.9] 08/22/2024 Obesity (BMI 30-39.9) [E66.9] 10/02/2015 Irritable bowel syndrome [K58.9] 08/06/2016 Abdominal pain [R10.9] 10/02/2016 10/04/2016 Malnutrition of moderate degree (HCC) [E44.0] 10/03/2016 Nausea and vomiting [R11.2] 10/04/2016 Diarrhea [R19.7] 10/04/2016 10/04/2016 Dilated bile duct [K83.8] 10/06/2016 S/P ERCP [Z98.890] 10/06/2016 Hypothyroidism [E03.9] 07/05/2024 Levoscoliosis of thoracic spine [M41.84] Dysphagia [R13.10] Incisional hernia, without obstruction or gangr*06/06/2022 PONV (postoperative nausea and vomiting) [R11.2*06/06/2022 Obesity, Class I, BMI 30-34.9 [E66.811] 06/06/2022 S/P hernia repair [Z98.890, Z87.19] 06/07/2022 Abdominal wall abscess at site of surgical woun*06/27/2022 Leukocytosis [D72.829] 06/27/2022 07/02/2022 Cellulitis of left hand [L03.114] 05/18/2023 Decreased estrogen level [E28.39] 05/18/2023 Kidney stone [N20.0] 02/09/2024 Urinary frequency [R35.0] 08/01/2024 Overactive bladder [N32.81] 07/05/2024 Stress incontinence in female [N39.3] 08/08/2024 Acquired a (more content not included)... Normal [facility] CBC panel Auto (Bld)on 09-08 Erythrocyte distribution width (RBC) [Ratio] 13.3 % 11.5 - 15.0 % [facility] Hematocrit (Bld) [Volume fraction] 39 % 36.0 - 46.0 % [facility] Hemoglobin (Bld) [Mass/Vol] 12.5 g/dL 11.5 - 15.5 g/dL [facility] Interpretation and review of laboratory results Abnormal [facility] MCH (RBC) [Entitic mass] 28.9 pg 26. 0 - 34.0 pg [facility] MCHC (RBC) [Mass/Vol] 32.1 g/dL 30.5 - 36.0 g/dL [facility] MCV (RBC) [Entitic vol] 90.1 fL 80.0 - 100.0 fL [facility] Platelet mean volume (Bld) [Entitic vol] 8.7 fL Low 9.0 - 12.7 fL [facility] Platelets (Bld) [#/Vol] 197 10*3/uL [facility] RBC (Bld) [#/Vol] 4.33 10*6/uL 3.90 - 5.20 m/uL [facility] WBC (Bld) [#/Vol] 5.98 10*3/uL [facility] Erythrocyte distribution width (RBC) [Ratio] 13.3 % Normal 11.5-15.0 [facility] Comment on above: Order Comment: Speci men Type: BLOOD SPECIMENOrdering Facility: [facility] Address: [address] [place] [address] Performed By: #### 5 8410-2 ####[facility] LABCLIA [id number] [place] [address] [place] Hematocrit (Bld) [Volume fraction] 39.0 % Normal 36.0-46.0 [facility] Comment on above: Order Comment: Speci men Type: BLOOD SPECIMENOrdering Facility: [facility] Address: [address] [place] [address] Performed By: #### 5 8410-2 ####[facility] LABCLIA [id number] [place] [address] [place] [facility] Hemoglobin (Bld) [Mass/Vol] 12.5 g/dL Normal 11.5-15.5 [facility] Comment on above: Order Comment: Speci men Type: BLOOD SPECIMENOrdering Facility: [facility] Address: [address] [place] [address] Performed By: #### 5 8410-2 ####[facility] LABCLIA [id number] [place] [address] [place] MCH (RBC) [Entitic mass] 28.9 pg Normal 26.0-34.0 [facility] Comment on above: Order Comment: Speci men Type: BLOOD SPECIMENOrdering Facility: [facility] Address: [address] [place] [address] Performed By: #### 5 8410-2 ####[facility] LABCLIA [id number] [place] [address] [facility] [place] MCHC (RBC) [Mass/Vol] 32.1 g/dL Normal 30.5-36.0 [facility] Comment on above: Order Comment: Speci men Type: BLOOD SPECIMENOrdering Facility: [facility] Address: [address] [place] [address] Performed By: #### 5 8410-2 ####[facility] LABCLIA [id number] [place] [address] [facility] MCV (RBC) [Entitic vol] 90.1 fL Normal 80.0-100.0 [facility] Comment on above: Order Comment: Speci men Type: BLOOD SPECIMENOrdering Facility: [facility] Address: [address] [place] [address] Performed By: #### 5 8410-2 ####[facility] LABCLIA [id number] [place] [address] [place] Platelet mean volume (Bld) [Entitic vol] 8.7 fL Low 9.0-12.7 [facility] Comment on above: Order Comment: Speci men Type: BLOOD SPECIMENOrdering Facility: [facility] Address: [address] [place] [address] Performed By: #### 5 8410-2 ####[facility] LABCLIA [id number] [place] [address] [place] Platelets (Bld) [#/Vol] 197 10*3/uL Normal 150-400 [facility] Comment on above: Order Comment: Speci men Type: BLOOD SPECIMENOrdering Facility: [facility] Address: [address] [place] [address] Performed By: #### 5 8410-2 ####[facility] LABCLIA [id number] [facility] [place] [address] [place] RBC (Bld) [#/Vol] 4.33 10*6/uL Normal 3.90-5.20 [facility] Comment on above: Order Comment: Speci men Type: BLOOD SPECIMENOrdering Facility: [facility] Address: [address] [place] [address] Performed By: #### 5 8410-2 ####[facility] LABCLIA [id number] [facility] [place] [address] [place] WBC (Bld) [#/Vol] 5.98 10*3/uL Normal 3.70-11.00 [facility] Comment on above: Order Comment: Speci men Type: BLOOD SPECIMENOrdering Facility: [facility] Address: [address] [place] [address] Performed By: #### 5 8410-2 ####[facility] LABCLIA [id number] [place] [address] [facility] CNPNon 09-08-2024 CNPN Telephone (MEPRAD) -------- TEVIN VILLAGOMEZ ([id number]) 1955 F Date Time Provider Department 09/08/24 CHRISTY PEREZ MEPKEE During your visit today, we recorded the following information about you: Christy Perez MD 09/08/2024 4:47 PM Signed I reviewed the CT with Radiology - there is dilated pancreatic duct of unknown etiology. He does not feel MRCP will add much. Recommend EUS. Discussed with Rimma. Will arrange for the procedure to be done with Dr. Mcconnell at [place]. Ismael Mcconnell MD 09/15/2024 10:[address] scan of the abdomen pelvis 08/25/2024: Pneumobilia. Stable dilated common bile duct. Pancreas did not show any mass. Dilated pancreatic duct measuring 6 mm previously [address] scan images. Schedule the patient for linear EUS with possible FNA in 1 to 2 months. Ask the patient about any biliary or pancreatic symptoms. Weight loss? Family history of pancreatic cancer? Smoking drinking. She had ERCP 10/04/[address] Ojeda which does explain pneumobilia. Explain the procedure to the patient details including potential complications: Bleeding Pancreatitis Infection Ismael Mcconnell MD Allergies As of Date: 09/08/2024 (No Known Allergies) Date Reviewed: 08/24/2024 Reviewed by: Krysta Martin, ASIM - Fully Assessed Reason for Visit: Results [95] Primary Visit Diagnosis:Pancreatic duct dilated [K86.89] Order(s):EGD - THERAPEUTIC, EUS, OR TUBE INTERVENTIONS [GI2] Order #: [id number]: 1 FUTURE Prescriptions as of 09/19/2024 - atorvastatin (LIPITOR) 10 mg tablet Take 1 tablet by mouth every afternoon. - buPROPion SR (WELLBUTRIN SR) 100 mg 12 hr tablet Take 100 mg by mouth two times a day. - folic acid 1 mg tablet Take 1 mg by mouth once daily. - gabapentin (NEURONTIN) 600 mg tablet Take 600 mg by mouth three times a day. - lansoprazole (PREVACID) 30 mg capsule Take 30 mg by mouth once daily. - meloxicam (MOBIC) 7.5 mg tablet Take 7.5 mg by mouth once daily. - mirtazapine (REMERON) 15 mg tablet Take 15 mg by mouth daily at bedtime. - pregabalin (LYRICA) 50 mg capsule Take 50 mg by mouth two times a day. - zolpidem (AMBIEN) 5 mg tablet Take 5 mg by mouth at bedtime as needed. - mirabegron (MYRBETRIQ) 25 mg Tb24 Take 1 tablet by mouth once daily. - solifenacin (VESICARE) 5 mg tablet Take 1 tablet by mouth once daily. - cephALEXin (KEFLEX) 250 mg capsule Take 1 capsule by mouth once daily. - estradiol (ESTRACE) 0.01 % (0.1 mg/gram) vaginal cream Apply a pea size amount to the vagina nightly for two weeks then 3 weeks for 1 year - sertraline (ZOLOFT) 50 mg tablet Take 2 tablets by mouth daily at bedtime. - ibuprofen (MOTRIN) 600 mg tablet Take 1 tablet by mouth every 8 hours as needed for pain or fever (specify temp.). - dicyclomine (BENTYL) 20 mg tablet Take 20 mg by mouth two times a day. - sucralfate (CARAFATE) 1 gram tablet Take 1 g by mouth daily at bedtime. - denosumab (PROLIA) 60 mg/mL 60 mg by Injection - FOR ORTHO USE ONLY route once every 6 months. - meclizine (ANTIVERT) 12.5 mg tab Take 1 tablet by mouth two times a day as needed (dizziness). - esomeprazole (NEXIUM) 40 mg capsule Take 40 mg by mouth daily at 6 am. - levothyroxine (SYNTHROID) 25 mcg tablet Take 25 mcg by mouth once daily. - traMADol (ULTRAM) 50 mg tablet Take 50 mg by mouth every 8 hours as needed for pain. - SUMAtriptan (IMITREX) 100 mg tablet Take 1 tablet by mouth as needed. at onset of headache.May repeat after 2 hours. - LORazepam (ATIVAN) 1 mg tablet Take 1 tablet by mouth every 8 hours. - promethazine (PHENERGAN) 25 mg tablet Take 1 tablet by mouth every 4 hours as needed for Nausea/Vomiting. Problem List As Of Date 09/08/2024 Noted Resolved Gastroesophageal reflux disease [K21.9] 04/21/2011 Laparotomy, Excision of esophageal leiomyoma an*04/21/2011 01/30/2015 Atelectasis [J98.11] 04/22/2011 04/27/2011 Postoperative pain [G89.18] 04/22/2011 05/02/2011 Migraine [G43.909] 04/23/2011 03/13/2015 Stress hyperglycemia [R73.9] 04/23/2011 04/23/2011 Tachycardia [R00.0] 04/23/2011 04/23/2011 DVT prophylaxis [[id number]] 04/23/2011 05/02/2011 Discharge Planning [Z71.89] 04/23/2011 05/02/2011 GERD (gastroesophageal reflux disease) [K21.9] 03/13/2015 Neck pain [M54.2] 05/21/2022 Motion sickness [T75.3XXA] 01/30/2015 Osteoarthritis [M19.90] 03/18/2016 Fibromyalgia [M79.7] 07/05/2024 Migraine without aura and without status migrai*03/13/2015 Gastroesophageal reflux disease with esophagiti*03/13/2015 Anxiety disorder [F41.9] 08/22/2024 Obesity (BMI 30-39.9) [E66.9] 10/02/2015 Irritable bowel syndrome [K58.9] 08/06/2016 Abdominal pain [R10.9] 10/02/2016 10/04/2016 Malnutrition of moderate degree (HCC) [E44.0] 10/03/2016 Nausea and vomiting [R11.2] 10/04/2016 Diarrhea [R19.7] 10/04/2016 10/04/2016 Dilated bile duct [K83.8] 10/06/2016 (more content not included)... [facility] Telephone (RULTTB) -------- SHAUNNATEVIN MCLEAN ([id number]) 1955 F Date Time Provider Department 09/08/24 THAIS LAIRDLTTB During your visit today, we recorded the following information about you: Thais Laird 09/08/2024 4:12 PM Addendum Visit Type: ANY MSK Visit Length: 45, 50 OR 60 MINUTES Order Name/Protocol: US HIP RT; MEDIAL-EVAL FOR SOURCE OF RT GROIN PAIN Preferred Provider: N/A Comment: Please ask if the patient has ever had any prior surgery to their RT groin. If so, upgrade the visit type to an MSK1 and notate the surgical hx in the Appointment Note. Location: Depending on the surgical hx, this patient can have this exam performed at any of our four locations. Slot held: N/A Jc Valdivia 09/09/2024 8:05 AM Signed Called patient on September 09, 2024 at 8:05 AM to schedule their MSK US exam. No answer, left VM, 1st attempt. Jc Valdivia 09/09/2024 9:43 AM Signed PT scheduled for MSK US on 09/27/24 at 2:25 PM at [facility] Allergies As of Date: 09/08/2024 (No Known Allergies) Date Reviewed: 08/24/2024 Reviewed by: Krysta Martin, ASIM - Fully Assessed Reason for Visit: Appointment [186] Prescriptions as of 09/09/2024 - atorvastatin (LIPITOR) 10 mg tablet Take 1 tablet by mouth every afternoon. - buPROPion SR (WELLBUTRIN SR) 100 mg 12 hr tablet Take 100 mg by mouth two times a day. - folic acid 1 mg tablet Take 1 mg by mouth once daily. - gabapentin (NEURONTIN) 600 mg tablet Take 600 mg by mouth three times a day. - lansoprazole (PREVACID) 30 mg capsule Take 30 mg by mouth once daily. - meloxicam (MOBIC) 7.5 mg tablet Take 7.5 mg by mouth once daily. - mirtazapine (REMERON) 15 mg tablet Take 15 mg by mouth daily at bedtime. - pregabalin (LYRICA) 50 mg capsule Take 50 mg by mouth two times a day. - zolpidem (AMBIEN) 5 mg tablet Take 5 mg by mouth at bedtime as needed. - mirabegron (MYRBETRIQ) 25 mg Tb24 Take 1 tablet by mouth once daily. - solifenacin (VESICARE) 5 mg tablet Take 1 tablet by mouth once daily. - cephALEXin (KEFLEX) 250 mg capsule Take 1 capsule by mouth once daily. - estradiol (ESTRACE) 0.01 % (0.1 mg/gram) vaginal cream Apply a pea size amount to the vagina nightly for two weeks then 3 weeks for 1 year - sertraline (ZOLOFT) 50 mg tablet Take 2 tablets by mouth daily at bedtime. - ibuprofen (MOTRIN) 600 mg tablet Take 1 tablet by mouth every 8 hours as needed for pain or fever (specify temp.). - dicyclomine (BENTYL) 20 mg tablet Take 20 mg by mouth two times a day. - sucralfate (CARAFATE) 1 gram tablet Take 1 g by mouth daily at bedtime. - denosumab (PROLIA) 60 mg/mL 60 mg by Injection - FOR ORTHO USE ONLY route once every 6 months. - meclizine (ANTIVERT) 12.5 mg tab Take 1 tablet by mouth two times a day as needed (dizziness). - esomeprazole (NEXIUM) 40 mg capsule Take 40 mg by mouth daily at 6 am. - levothyroxine (SYNTHROID) 25 mcg tablet Take 25 mcg by mouth once daily. - traMADol (ULTRAM) 50 mg tablet Take 50 mg by mouth every 8 hours as needed for pain. - SUMAtriptan (IMITREX) 100 mg tablet Take 1 tablet by mouth as needed. at onset of headache.May repeat after 2 hours. - LORazepam (ATIVAN) 1 mg tablet Take 1 tablet by mouth every 8 hours. - promethazine (PHENERGAN) 25 mg tablet Take 1 tablet by mouth every 4 hours as needed for Nausea/Vomiting. Problem List As Of Date 09/08/2024 Noted Resolved Gastroesophageal reflux disease [K21.9] 04/21/2011 Laparotomy, Excision of esophageal leiomyoma an*04/21/2011 01/30/2015 Atelectasis [J98.11] 04/22/2011 04/27/2011 Postoperative pain [G89.18] 04/22/2011 05/02/2011 Migraine [G43.909] 04/23/2011 03/13/2015 Stress hyperglycemia [R73.9] 04/23/2011 04/23/2011 Tachycardia [R00.0] 04/23/2011 04/23/2011 DVT prophylaxis [[id number]] 04/23/2011 05/02/2011 Discharge Planning [Z71.89] 04/23/2011 05/02/2011 GERD (gastroesophageal reflux disease) [K21.9] 03/13/2015 Neck pain [M54.2] 05/21/2022 Motion sickness [T75.3XXA] 01/30/2015 Osteoarthritis [M19.90] 03/18/2016 Fibromyalgia [M79.7] 07/05/2024 Migraine without aura and without status migrai*03/13/2015 Gastroesophageal reflux disease with esophagiti*03/13/2015 Anxiety disorder [F41.9] 08/22/2024 Obesity (BMI 30-39.9) [E66.9] 10/02/2015 Irritable bowel syndrome [K58.9] 08/06/2016 Abdominal pain [R10.9] 10/02/2016 10/04/2016 Malnutrition of moderate degree (HCC) [E44.0] 10/03/2016 Nausea and vomiting [R11.2] 10/04/2016 Diarrhea [R19.7] 10/04/2016 10/04/2016 Dilated bile duct [K83.8] 10/06/2016 S/P ERCP [Z98.890] 10/06/2016 Hypothyroidism [E03.9] 07/05/2024 Levoscoliosis of thoracic spine [M41.84] Dysphagia [R13.10] Incisional hernia, without obstruction or gangr*06/06/2022 PONV (postoperative nausea and vomiting) [R11.2*06/06/2022 Obesity, Class I, BMI 30-34.9 [E66.811] 06/06/2022 S/P hernia repair [Z98.890, (more content not included)... Normal [facility] metabolic 2000 panelon 09-08-2024 Albumin [Mass/Vol] 3.8 g/dL Low 3.9 - 4.9 g/dL [facility] ALP [Catalytic activity/Vol] 149 U/L High 34 - 123 U/L [facility] ALT With P-5'-P [Catalytic activity/Vol] 11 U/L 7 - 38 U/L [facility] Anion gap [Moles/Vol] 11 mmol/L 8 - 15 mmol/L [facility] AST With P-5'-P [Catalytic activity/Vol] 20 U/L 13 - 35 U/L [facility] Bilirubin [Mass/Vol] 0.2 mg/dL 0.2 - 1 .3 mg/dL [facility] Calcium [Mass/Vol] 9.2 mg/dL 8.5 - 10. 2 mg/dL [facility] Chloride [Moles/Vol] 103 mmol/L 98 - 10 7 mmol/L [facility] CO2 [Moles/Vol] 27 mmol/L 22 - 30 mmol/L [facility] Creatinine [Mass/Vol] 0.82 mg/dL 0.58 - 0.96 mg/dL [facility] GFR/1.73 sq M.predicted among non-blacks MDRD (S/P/Bld) [Vol rate/Area] 78 mL/min/{1.73_m2} - PINF [facility] Comment on above: Estimated Glomerular Filtration Rate (eGFR) is calculated using the 2020 CKD-EPI creatinine equation. This equation utilizes serum creatinine, sex, and age as parameters. The creatinine assay has traceable calibration to isotope dilution-mass spectrometry. Refer to KDIGO guidelines for clinical interpretation. In patients with unstable renal function, e.g. those with acute kidney injury, the eGFR may not accurately reflect actual GFR. Glucose [Mass/Vol] 122 mg/dL High 74 - 99 mg/dL [facility] Comment on above: The [place] Diab[employer] s Association (ADA) provides guidance for cutoff values for fasting glucose and random glucose. The ADA defines fasting as no caloric intake for at least 8 hours. Fasting plasma glucose results between 100 to 125 mg/dL indicate increased risk for diabetes (prediabetes). Fasting plasma glucose results greater than or equal to 126 mg/dL meet the criteria for diagnosis of diabetes. In the absence of unequivocal hyperglycemia, results should be confirmed by repeat testing. In a patient with classic symptoms of hyperglycemia or hyperglycemic crisis, random plasma glucose results greater than or equal to 200 mg/dL meet the criteria for diagnosis of diabetes. Reference: Standards of Medical Care in Diabetes 2016, [place] [employer] Association. Diabetes Care. 2016.39(Suppl 1). Interpretation and review of laboratory results Abnormal [facility] Potassium [Moles/Vol] 4.3 mmol/L 3.7 - 5.1 mmol/L [facility] Protein [Mass/Vol] 6.8 g/dL 6.3 - 8.0 g/dL [facility] Sodium [Moles/Vol] 141 mmol/L 136 - 144 mmol/L [facility] Urea nitrogen [Mass/Vol] 13 mg/dL 7 - 21 mg/dL [facility] Albumin [Mass/Vol] 3.8 g/dL Low 3.9-4.9 [facility] Comment on above: Order Comment: Speci men Type: BLOOD SPECIMENOrdering Facility: [facility] Address: [address] [place] [address] Performed By: #### 3 040-3, 41301-3 ####[facility] LABCLIA [id number] [place] [address] [place] [facility] ALP [Catalytic activity/Vol] 149 U/L High 34-123 [facility] Comment on above: Order Comment: Speci lalo Type: BLOOD SPECIMENOrdering Facility: [facility] Address: [address] [place] [address] Performed By: #### 3 040-3, 48959-3 ####[facility] LABCLIA [id number] [place] [address] [place] [facility] ALT With P-5'-P [Catalytic activity/Vol] 11 U/L Normal 7-38 [facility] Comment on above: Order Comment: Speci men Type: BLOOD SPECIMENOrdering Facility: [facility] Address: [address] [place] [address] Performed By: #### 3 040-3, 24184-3 ####[facility] LABCLIA [id number] [place] [address] [place] [facility] Anion gap [Moles/Vol] 11 mmol/L Normal 8-15 [facility] Comment on above: Order Comment: Speci men Type: BLOOD SPECIMENOrdering Facility: [facility] Address: [address] [place], [place] [id number] Performed By: #### 3 040-3, 71992-5 ####[facility] LABCLIA [id number] [place] [address] [place] AST With P-5'-P [Catalytic activity/Vol] 20 U/L Normal 13-35 [facility] Comment on above: Order Comment: Speci men Type: BLOOD SPECIMENOrdering Facility: [facility] Address: [address] [place] [address] Performed By: #### 3 040-3, 82973-1 ####[facility] LABCLIA [id number] [place] [address] [place] Bilirubin [Mass/Vol] 0.2 mg/dL Normal 0.2-1.3 [facility] Comment on above: Order Comment: Speci men Type: BLOOD SPECIMENOrdering Facility: [facility] Address: [address] [place] [address] Performed By: #### 3 040-3, 65239-8 ####[facility] LABCLIA [id number] [place] [address] [place] Calcium [Mass/Vol] 9.2 mg/dL Normal 8.5-10.2 [facility] Comment on above: Order Comment: Speci men Type: BLOOD SPECIMENOrdering Facility: [facility] Address: [address] [place] [address] Performed By: #### 3 040-3, 32830-1 ####[facility] LABCLIA [id number] [place] [address] [place] Chloride [Moles/Vol] 103 mmol/L Normal 98-107 [facility] Comment on above: Order Comment: Speci men Type: BLOOD SPECIMENOrdering Facility: [facility] Address: [address] [place] [address] Performed By: #### 3 040-3, 97959-2 ####[facility] LABCLIA [id number] [place] [address] [place] CO2 [Moles/Vol] 27 mmol/L Normal 22-30 [facility] Comment on above: Order Comment: Michael may Type: BLOOD SPECIMENOrdering Facility: [facility] Address: [address] [place] [address] Performed By: #### 3 040-3, 98006-4 ####[facility] LABCLIA [id number] [place] [address] [place] [facility] Creatinine [Mass/Vol] 0.82 mg/dL Normal 0.58-0.96 [facility] Comment on above: Order Comment: Michael may Type: BLOOD SPECIMENOrdering Facility: [facility] Address: [address] [place] [address] Performed By: #### 3 040-3, 85220-2 ####[facility] [employer] LABCLIA [id number] [place] [id number] [facility] Creatinine and Glomerular filtration rate.predicted panel (S/P/Bld) 78 mL/min/1.73m??? Normal >=60 [facility] Comment on above: Order Comment: Michael may Type: BLOOD SPECIMENOrdering Facility: [facility] Address: [address] [place] [address] Result Comment: Juliann mated Glomerular Filtration Rate (eGFR) is calculated using the 2020 CKD-EPI creatinine equation. This equation utilizes serum creatinine, sex, and age as parameters. The creatinine assay has traceable calibration to isotope dilution-mass spectrometry. Refer to KDIGO guidelines for clinical interpretation. In patients with unstable renal function, e.g. those with acute kidney injury, the eGFR may not accurately reflect actual GFR. Performed By: #### 3 040-3, 46219-4 ####[facility] [employer] LABCLIA [id number] [place] [address] [place] Glucose [Mass/Vol] 122 mg/dL High 74-99 [facility] Comment on above: Order Comment: Michael may Type: BLOOD SPECIMENOrdering Facility: [facility] Address: [address] [place] [address] [place] [address] Result Comment: The [place] Diabetes Association (ADA) provides guidance for cutoff values for fasting glucose and random glucose. The ADA defines fasting as no caloric intake for at least 8 hours. Fasting plasma glucose results between 100 to 125 mg/dL indicate increased risk for diabetes (prediabetes). Fasting plasma glucose results greater than or equal to 126 mg/dL meet the criteria for diagnosis of diabetes. In the absence of unequivocal hyperglycemia, results should be confirmed by repeat testing. In a patient with classic symptoms of hyperglycemia or hyperglycemic crisis, random plasma glucose results greater than or equal to 200 mg/dL meet the criteria for diagnosis of diabetes. Reference: Standards of Medical Care in Diabetes 2016, [place] [employer]. Diabetes Care. 2016.39(Suppl 1). Performed By: #### 3 040-3, 98272-8 ####[facility] [employer] LABCLIA [id number] [place] [address] [place] Potassium [Moles/Vol] 4.3 mmol/L Normal 3.7-5.1 [facility] Comment on above: Order Comment: Speci men Type: BLOOD SPECIMENOrdering Facility: [facility] Address: [address] [place] [id number] Performed By: #### 3 040-3, 04837-7 ####[facility] [employer] LABCLIA [id number] [place] [address] [place] Protein [Mass/Vol] 6.8 g/dL Normal 6.3-8.0 [facility] Comment on above: Order Comment: Speci men Type: BLOOD SPECIMENOrdering Facility: [facility] Address: [address] [place] [id number] Performed By: #### 3 040-3, 92444-3 ####[facility] [employer] LABCLIA [id number] [place] [address] [place] Sodium [Moles/Vol] 141 mmol/L Normal 136-144 [facility] Comment on above: Order Comment: Speci men Type: BLOOD SPECIMENOrdering Facility: [facility] Address: [address] [place] [id number] Performed By: #### 3 040-3, 14885-2 ####[facility] LABCLIA [id number] [place] [address] [facility] Urea nitrogen [Mass/Vol] 13 mg/dL Normal 7-21 [facility] Comment on above: Order Comment: Michael may Type: BLOOD SPECIMENOrdering Facility: [facility] Address: [address] [place] [address] Performed By: #### 3 040-3, 66545-7 ####[facility] LABCLIA [id number] [place] [address] [place] LIPASEon 09-08-2024 Lipase [Catalytic activity/Vol] 15 U/L Low 16 - 61 U/L [facility] Lipase SerPl-cCncon 09-09-19 Lipase [Catalytic activity/Vol] 15 U/L Low 16-61 [facility] Comment on above: Order Comment: Michael may Type: BLOOD SPECIMENOrdering Facility: [facility] Address: [address] [place] [address] Performed By: #### 3 040-3, 82277-5 ####[facility] LABCLIA [id number] [place] [id number] [facility] [place] Lipase [Catalytic activity/V ol]on 09-08-2024 Interpretation and review of laboratory results Abnormal [facility] CNPNon 09-06-2024 CNPN Telephone (EZRA) -------- TEVIN VILLAGOMEZ ([id number]) 1955 F Date Time Provider Department 09/06/24 CHRISTY PEREZ During your visit today, we recorded the following information about you: Christy Perez MD 09/06/2024 8:27 AM Signed Called with CT results - no hernia. There is PD dilatation. Will obtain labs and have her see me in 2 weeks. Juan Daniel Krys 09/12/2024 2:40 PM Signed Patient has been scheduled. Patient wanted to see Dr. Perez after her appt on 09/27/2024 after her ultrasound. Krys Tong Allergies As of Date: 09/06/2024 (No Known Allergies) Date Reviewed: 08/24/2024 Reviewed by: Krysta Martin RN - Fully Assessed Reason for Visit: Results [95] Primary Visit Diagnosis:Pancreatic duct dilated [K86.89] Order(s):COMPLETE BLOOD COUNT [SQCBC] Order #: [id number] FUTURE COMPREHENSIVE METABOLIC PANEL [SQCMP] Order #: [id number] FUTURE LIPASE [SQLIPA] Order #: [id number] FUTURE Prescriptions as of 09/19/2024 - atorvastatin (LIPITOR) 10 mg tablet Take 1 tablet by mouth every afternoon. - buPROPion SR (WELLBUTRIN SR) 100 mg 12 hr tablet Take 100 mg by mouth two times a day. - folic acid 1 mg tablet Take 1 mg by mouth once daily. - gabapentin (NEURONTIN) 600 mg tablet Take 600 mg by mouth three times a day. - lansoprazole (PREVACID) 30 mg capsule Take 30 mg by mouth once daily. - meloxicam (MOBIC) 7.5 mg tablet Take 7.5 mg by mouth once daily. - mirtazapine (REMERON) 15 mg tablet Take 15 mg by mouth daily at bedtime. - pregabalin (LYRICA) 50 mg capsule Take 50 mg by mouth two times a day. - zolpidem (AMBIEN) 5 mg tablet Take 5 mg by mouth at bedtime as needed. - mirabegron (MYRBETRIQ) 25 mg Tb24 Take 1 tablet by mouth once daily. - solifenacin (VESICARE) 5 mg tablet Take 1 tablet by mouth once daily. - cephALEXin (KEFLEX) 250 mg capsule Take 1 capsule by mouth once daily. - estradiol (ESTRACE) 0.01 % (0.1 mg/gram) vaginal cream Apply a pea size amount to the vagina nightly for two weeks then 3 weeks for 1 year - sertraline (ZOLOFT) 50 mg tablet Take 2 tablets by mouth daily at bedtime. - ibuprofen (MOTRIN) 600 mg tablet Take 1 tablet by mouth every 8 hours as needed for pain or fever (specify temp.). - dicyclomine (BENTYL) 20 mg tablet Take 20 mg by mouth two times a day. - sucralfate (CARAFATE) 1 gram tablet Take 1 g by mouth daily at bedtime. - denosumab (PROLIA) 60 mg/mL 60 mg by Injection - FOR ORTHO USE ONLY route once every 6 months. - meclizine (ANTIVERT) 12.5 mg tab Take 1 tablet by mouth two times a day as needed (dizziness). - esomeprazole (NEXIUM) 40 mg capsule Take 40 mg by mouth daily at 6 am. - levothyroxine (SYNTHROID) 25 mcg tablet Take 25 mcg by mouth once daily. - traMADol (ULTRAM) 50 mg tablet Take 50 mg by mouth every 8 hours as needed for pain. - SUMAtriptan (IMITREX) 100 mg tablet Take 1 tablet by mouth as needed. at onset of headache.May repeat after 2 hours. - LORazepam (ATIVAN) 1 mg tablet Take 1 tablet by mouth every 8 hours. - promethazine (PHENERGAN) 25 mg tablet Take 1 tablet by mouth every 4 hours as needed for Nausea/Vomiting. Problem List As Of Date 09/06/2024 Noted Resolved Gastroesophageal reflux disease [K21.9] 04/21/2011 Laparotomy, Excision of esophageal leiomyoma an*04/21/2011 01/30/2015 Atelectasis [J98.11] 04/22/2011 04/27/2011 Postoperative pain [G89.18] 04/22/2011 05/02/2011 Migraine [G43.909] 04/23/2011 03/13/2015 Stress hyperglycemia [R73.9] 04/23/2011 04/23/2011 Tachycardia [R00.0] 04/23/2011 04/23/2011 DVT prophylaxis [[id number]] 04/23/2011 05/02/2011 Discharge Planning [Z71.89] 04/23/2011 05/02/2011 GERD (gastroesophageal reflux disease) [K21.9] 03/13/2015 Neck pain [M54.2] 05/21/2022 Motion sickness [T75.3XXA] 01/30/2015 Osteoarthritis [M19.90] 03/18/2016 Fibromyalgia [M79.7] 07/05/2024 Migraine without aura and without status migrai*03/13/2015 Gastroesophageal reflux disease with esophagiti*03/13/2015 Anxiety disorder [F41.9] 08/22/2024 Obesity (BMI 30-39.9) [E66.9] 10/02/2015 Irritable bowel syndrome [K58.9] 08/06/2016 Abdominal pain [R10.9] 10/02/2016 10/04/2016 Malnutrition of moderate degree (HCC) [E44.0] 10/03/2016 Nausea and vomiting [R11.2] 10/04/2016 Diarrhea [R19.7] 10/04/2016 10/04/2016 Dilated bile duct [K83.8] 10/06/2016 S/P ERCP [Z98.890] 10/06/2016 Hypothyroidism [E03.9] 07/05/2024 Levoscoliosis of thoracic spine [M41.84] Dysphagia [R13.10] Incisional hernia, without obstruction or gangr*06/06/2022 PONV (postoperative nausea and vomiting) [R11.2*06/06/2022 Obesity, Class I, BMI 30-34.9 [E66.811] 06/06/2022 S/P hernia repair [Z98.890, Z87.19] 06/07/2022 Abdominal wall abscess at site of surgical woun*06/27/2022 Leukocytosis [D72.829] 06/27/2022 07/02/2022 Cellulitis of left hand [L03.114] 05/18/2023 Decreased estrogen level [E28.39] (more content not included)... Normal [facility] 09-02-2024 [facility] Telephone ([employer]) -------- TEVIN VILLAGOMEZ ([id number]) 1955 F Date Time Provider Department 09/02/24 CHRISTY PEREZ During your visit today, we recorded the following information about you: Courtney Gao RN 09/02/2024 10:57 AM Signed Patient called and LMV on Nurse Triage, asking for results from CT. Christy Perez MD 09/06/2024 4:31 PM Signed Spoke with Rimma - still having right lower quadrant/groin pain. CT neg. Will obtain US. Discussed the dilated pancreatic duct. Will order labs. May need MRCP. Christy Perez MD 09/06/2024 4:31 PM Signed Addended by: CHRISTY PEREZ on: 09/06/2024 04:31 PM Modules accepted: Orders Allergies As of Date: 09/02/2024 (No Known Allergies) Date Reviewed: 08/24/2024 Reviewed by: Krysta Martin RN - Fully Assessed Reason for Visit: Patient Question [1477] Primary Visit Diagnosis:Right groin pain [R10.31] Order(s):US HIP RIGHT [[id number]] Order #: [id number] FUTURE Prescriptions as of 09/06/2024 - atorvastatin (LIPITOR) 10 mg tablet Take 1 tablet by mouth every afternoon. - buPROPion SR (WELLBUTRIN SR) 100 mg 12 hr tablet Take 100 mg by mouth two times a day. - folic acid 1 mg tablet Take 1 mg by mouth once daily. - gabapentin (NEURONTIN) 600 mg tablet Take 600 mg by mouth three times a day. - lansoprazole (PREVACID) 30 mg capsule Take 30 mg by mouth once daily. - meloxicam (MOBIC) 7.5 mg tablet Take 7.5 mg by mouth once daily. - mirtazapine (REMERON) 15 mg tablet Take 15 mg by mouth daily at bedtime. - pregabalin (LYRICA) 50 mg capsule Take 50 mg by mouth two times a day. - zolpidem (AMBIEN) 5 mg tablet Take 5 mg by mouth at bedtime as needed. - mirabegron (MYRBETRIQ) 25 mg Tb24 Take 1 tablet by mouth once daily. - solifenacin (VESICARE) 5 mg tablet Take 1 tablet by mouth once daily. - cephALEXin (KEFLEX) 250 mg capsule Take 1 capsule by mouth once daily. - estradiol (ESTRACE) 0.01 % (0.1 mg/gram) vaginal cream Apply a pea size amount to the vagina nightly for two weeks then 3 weeks for 1 year - sertraline (ZOLOFT) 50 mg tablet Take 2 tablets by mouth daily at bedtime. - ibuprofen (MOTRIN) 600 mg tablet Take 1 tablet by mouth every 8 hours as needed for pain or fever (specify temp.). - dicyclomine (BENTYL) 20 mg tablet Take 20 mg by mouth two times a day. - sucralfate (CARAFATE) 1 gram tablet Take 1 g by mouth daily at bedtime. - denosumab (PROLIA) 60 mg/mL 60 mg by Injection - FOR ORTHO USE ONLY route once every 6 months. - meclizine (ANTIVERT) 12.5 mg tab Take 1 tablet by mouth two times a day as needed (dizziness). - esomeprazole (NEXIUM) 40 mg capsule Take 40 mg by mouth daily at 6 am. - levothyroxine (SYNTHROID) 25 mcg tablet Take 25 mcg by mouth once daily. - traMADol (ULTRAM) 50 mg tablet Take 50 mg by mouth every 8 hours as needed for pain. - SUMAtriptan (IMITREX) 100 mg tablet Take 1 tablet by mouth as needed. at onset of headache.May repeat after 2 hours. - LORazepam (ATIVAN) 1 mg tablet Take 1 tablet by mouth every 8 hours. - promethazine (PHENERGAN) 25 mg tablet Take 1 tablet by mouth every 4 hours as needed for Nausea/Vomiting. Facility-Administered Medications as of 09/06/2024 - onabotulinum toxin type A 100 Units injection (BOTOX) Problem List As Of Date 09/02/2024 Noted Resolved Gastroesophageal reflux disease [K21.9] 04/21/2011 Laparotomy, Excision of esophageal leiomyoma an*04/21/2011 01/30/2015 Atelectasis [J98.11] 04/22/2011 04/27/2011 Postoperative pain [G89.18] 04/22/2011 05/02/2011 Migraine [G43.909] 04/23/2011 03/13/2015 Stress hyperglycemia [R73.9] 04/23/2011 04/23/2011 Tachycardia [R00.0] 04/23/2011 04/23/2011 DVT prophylaxis [[id number]] 04/23/2011 05/02/2011 Discharge Planning [Z71.89] 04/23/2011 05/02/2011 GERD (gastroesophageal reflux disease) [K21.9] 03/13/2015 Neck pain [M54.2] 05/21/2022 Motion sickness [T75.3XXA] 01/30/2015 Osteoarthritis [M19.90] 03/18/2016 Fibromyalgia [M79.7] 07/05/2024 Migraine without aura and without status migrai*03/13/2015 Gastroesophageal reflux disease with esophagiti*03/13/2015 Anxiety disorder [F41.9] 08/22/2024 Obesity (BMI 30-39.9) [E66.9] 10/02/2015 Irritable bowel syndrome [K58.9] 08/06/2016 Abdominal pain [R10.9] 10/02/2016 10/04/2016 Malnutrition of moderate degree (HCC) [E44.0] 10/03/2016 Nausea and vomiting [R11.2] 10/04/2016 Diarrhea [R19.7] 10/04/2016 10/04/2016 Dilated bile duct [K83.8] 10/06/2016 S/P ERCP [Z98.890] 10/06/2016 Hypothyroidism [E03.9] 07/05/2024 Levoscoliosis of thoracic spine [M41.84] Dysphagia [R13.10] Incisional hernia, without obstruction or gangr*06/06/2022 PONV (postoperative nausea and vomiting) [R11.2*06/06/2022 Obesity, Class I, BMI 30-34.9 [E66.811] 06/06/2022 S/P hernia repair [Z98.890, Z87.19] 06/07/2022 Abdominal wall abscess at site of surgical woun*06/27/2022 (more content not included)... Normal [facility] CT ABD/PEL W IVCONon 025 CT ABD/PEL W IVCON * * *Final Report* * * DATE OF EXAM: Aug 25 2024 10:22AM [facility] 0530 - CT ABD/PEL W IVCON / PROCEDURE REASON: RLQ abdominal pain * * * * Physician Interpretation * * * * EXAMINATION: CT ABDOMEN AND PELVIS WITH IV CONTRAST CLINICAL HISTORY: Pain TECHNIQUE: CT of the abdomen and pelvis was performed using standard technique, scanning from just above the dome of the diaphragm to the symphysis pubis. MQ: CTAP_3 Contrast: IV: 100 ml of Omnipaque 350 Oral: 420 ml of Omni 240 10-25ml diluted with water CT Radiation dose: Integrated Dose-length product (DLP) for this visit = 696.19 mGy*cm. CT Dose Reduction Employed: Automated exposure control(AEC) and iterative recon COMPARISON: 02/09/2024, 01/06/2023 RESULT: Liver: Subcentimeter hypodensity in the right lobe of the liver is too small to characterize. Biliary: No bile duct dilation. Pneumobilia. Stable mildly dilated common bile duct, likely related to prior cholecystectomy. Spleen: No mass. No splenomegaly. Pancreas: No mass or duct dilation. Dilated pancreatic duct measuring 6 mm, previously 4 mm Adrenals: No mass. Kidneys: No mass, calculus or hydronephrosis. GI tract: No dilation or wall thickening. Small hiatal hernia. Normal appendix. Short segment small bowel small bowel intussusception in the left lower quadrant (2:58), usually transient and incidental finding. Lymph nodes: No abdominal or pelvic lymphadenopathy. Mesentery/Peritoneum: No ascites or mass. Retroperitoneum: No mass. Vasculature: - Abdominal aorta and iliac arteries: Atherosclerotic calcifications without aneurysm. - Celiac and SMA: Patent without stenosis. - Portal venous system (SMV, splenic vein, portal vein and branches): Patent. - Hepatic veins: Patent. Pelvis: Gas in the urinary bladder. Hysterectomy. Bones/Soft Tissues: Degenerative changes. Partially imaged bilateral breast implants. Grade 1 anterolisthesis of L4 on L5. Stable L1 vertebral body compression fracture. Lower thorax: Unremarkable. Localizer images: No additional findings. IMPRESSION: 1. Gas in urinary bladder may be related to recent instrumentation or infection. 2. Mildly dilated pancreatic duct, slightly increased in size from prior. MRI/MRCP can be performed for further evaluation if clinically indicated. Personal Insurance Advisor: ELVIRA Transcribe Date/Time: Aug 26 2024 4:15P Dictated by : ERICK PENA MD This examination was interpreted and the report reviewed and electronically signed by: ERICK PENA MD on Aug 26 2024 4:33PM EST [id number] Normal [facility] CNOVon 08-24-2024 CNOV Office Visit (GYURWP ) -------- TEVIN VILLAGOMEZ ([id number]) 1955 F Date Time Provider Department 08/24/24 2:45 PM HAYDEE WEBB During your visit today, we recorded the following information about you: Blood pressure 130/70 Haydee Webb APRN.CLERK OF SCALES 08/24/2024 3:20 PM Signed BOTOX TREATMENT INFORMATION Many people think overactive bladder (OAB) is just part of getting older. However, OAB is a chronic condition that requires ongoing treatment. HOW DOES BOTOX WORK? In your body, certain chemicals travel from nerve cells to muscle cells to make your bladder contract so that you can urinate. For people who have OAB, these muscles contract uncontrollably, creating leakage, the sudden strong need to go, and going too often. BOTOX? is placed directly in the bladder muscle, helping block the nerve signals that trigger OAB. BEFORE THE PROCEDURE Before treating you with BOTOX?, we must first receive your insurance company's approval. We will submit information to your insurance company for prior authorization to proceed with treatment, which can take 2 to 4 weeks, depending on your health plan. In some cases, we will need to obtain BOTOX? through a specialty pharmacy. If this is required, the specialty pharmacy will contact you for permission to give the medication to our office and collect any needed copayment. We may have to move your appointment if approval is not received in time, but this is not typically an issue. We will also notify you if your insurance denies the procedure and discuss the next steps. You are responsible for any cost not covered by insurance. All balances must be paid in full before additional treatments will be provided. WHAT SHOULD I EXPECT? Dr. Knowles completes the procedure with support from a medical office technology instructor. The actual procedure takes about 3-5 minutes. The procedure may be uncomfortable, but any discomfort subsides after injections are received. You can drive and return to your regular activity, including work, immediately. The majority of patients receiving BOTOX? have at least a 50% reduction of daily leakage episodes. Many of these patients reduced their leakage episodes by 75%. Approximately 1 in 4 of these patients reported leakage episodes stopped completely. After your first treatment, you will receive a phone call from the nurse to see how the treatment is working for you. If you do not have the results you were hoping for, we can often increase the dose. BOTOX? works for up to 6 months, which is why re-treatment is about two times a year. You may start to notice results at two weeks. If your OAB symptoms return before six months, contact your doctor so you may be re-treated sooner. A minimum of 12 weeks is needed between treatments. ARE THERE ANY SIDE EFFECTS? The most common side effects after a BOTOX? treatment are: Urinary tract infection (18% vs. 6% with placebo) Painful or difficult urination (9% vs. 7% placebo) Temporary inability to empty your bladder, which may require the use of a self-catheter (6% vs. 0% placebo) (VERY UNCOMMON!) However, most patients do not experience the above side effects and find tremendous relief from this treatment. IMPORTANT REBATE INFO!!! To enroll in the Botox Savings Program: [place] [address] visit [email or web address]. Penxy Call [phone]-BOTOX Haydee Webb APRN.CNP 08/24/2024 3:20 PM Signed Intravesical Botox Injection Procedure Note UNIVERSAL PROTOCOL / SAFETY CHECKLIST Procedure to be Performed: Intravesical Botox Injection Diagnosis: urge urinary incontinence Sign In: A Moment of CARE was completed. Personnel directly involved with the procedure wore the appropriate PPE (Personal Protective Equipment). Patient/Surrogate Stated/Verified: PATIENT VERIFIED(optional for EMERGENT procedures): Patient name, Date of , Relevant allergies, and The intended procedure Time Out Communication: Intended patient and procedure match the source documents. Consent documented and matches the intended procedure. Sign Out: SIGN OUT (optional for EMERGENT procedures): No specimen collected. The patient was consented for the procedure and all of her questions were answered. The patient was placed in dorsal lithotomy position and prepped and draped in sterile fashion. 100 units of botox was injected in .5 cc aliquots divided 10 cc of normal saline used to reconstitute the botox into the Detrusor muscle while using a flexible cystoscope and an Injetak needle. All 20 sites were injected just superior to the trigone. A 1 cc flush with preservative-free normal saline was injected to complete the procedure. The patient tolerated the procedure well. I personally performed the entire procedure. Haydee Webb APRN.CLERK OF SCALES Referring Provider: SIXTO KNOWLES [[id number]] Allergies As of Date: 08/24/2024 (No Known Aller (more content not included)... Normal [facility] CNPNon 08-24-2024 [facility] Telephone ([place]) -------- TEVIN VILLAGOMEZ ([id number]) 1955 F Date Time Provider Department 08/24/24 HAYDEE WEBB During your visit today, we recorded the following information about you: Xiomy Valenzuela RN 08/24/2024 3:35 PM Signed Botox 100 units 03/01 at with Haydee Webb APRN.CLERK OF SCALES - 2nd injection Previous injections: 08/24/24 Botox 100 units Q90 days approved thru 08/11/25. Pt will need rx for Bactrim - per Dr. Knowles. MARIELA 08/24/24: Procedure to be Performed: Intravesical Botox Injection Diagnosis: urge urinary incontinence Xiomy Valenzuela RN August 24, 2024 3:35 PM Allergies As of Date: 08/24/2024 (No Known Allergies) Date Reviewed: 08/24/2024 Reviewed by: Krysta Martin RN - Fully Assessed Reason for Visit: Care Coordination [7496] Cmt: Botox Prescriptions as of 08/24/2024 - iv contrast (will be provided with radiology test) CT ABD/PEL -Inject, intravenously, once for 1 dose.No IV access, insert saline lock prior to the beginning of sedation, infusion, injection of imaging exam. Discontinue saline lock post exam. If Pt. has a central line or IVAD, may access for administration according to line specific nursing protocol. Once exam is complete flush line and de-access according to line specific nursing protocol in the CT contrast administration guidelines link. - enteric contrast (will be provided with radiology test) For CT ABD/PEL W IVCON Routine order Administer, As Directed One Time Only, via Oral, Rectal, both Oral and Rectal, Enteric Tube, Stoma or Indwelling Catheter, Enteric Contrast as designated per enteric contrast guidelines - atorvastatin (LIPITOR) 10 mg tablet Take 1 tablet by mouth every afternoon. - buPROPion SR (WELLBUTRIN SR) 100 mg 12 hr tablet Take 100 mg by mouth two times a day. - folic acid 1 mg tablet Take 1 mg by mouth once daily. - gabapentin (NEURONTIN) 600 mg tablet Take 600 mg by mouth three times a day. - lansoprazole (PREVACID) 30 mg capsule Take 30 mg by mouth once daily. - meloxicam (MOBIC) 7.5 mg tablet Take 7.5 mg by mouth once daily. - mirtazapine (REMERON) 15 mg tablet Take 15 mg by mouth daily at bedtime. - pregabalin (LYRICA) 50 mg capsule Take 50 mg by mouth two times a day. - zolpidem (AMBIEN) 5 mg tablet Take 5 mg by mouth at bedtime as needed. - mirabegron (MYRBETRIQ) 25 mg Tb24 Take 1 tablet by mouth once daily. - solifenacin (VESICARE) 5 mg tablet Take 1 tablet by mouth once daily. - cephALEXin (KEFLEX) 250 mg capsule Take 1 capsule by mouth once daily. - estradiol (ESTRACE) 0.01 % (0.1 mg/gram) vaginal cream Apply a pea size amount to the vagina nightly for two weeks then 3 weeks for 1 year - sertraline (ZOLOFT) 50 mg tablet Take 2 tablets by mouth daily at bedtime. - ibuprofen (MOTRIN) 600 mg tablet Take 1 tablet by mouth every 8 hours as needed for pain or fever (specify temp.). - dicyclomine (BENTYL) 20 mg tablet Take 20 mg by mouth two times a day. - sucralfate (CARAFATE) 1 gram tablet Take 1 g by mouth daily at bedtime. - denosumab (PROLIA) 60 mg/mL 60 mg by Injection - FOR ORTHO USE ONLY route once every 6 months. - meclizine (ANTIVERT) 12.5 mg tab Take 1 tablet by mouth two times a day as needed (dizziness). - esomeprazole (NEXIUM) 40 mg capsule Take 40 mg by mouth daily at 6 am. - levothyroxine (SYNTHROID) 25 mcg tablet Take 25 mcg by mouth once daily. - traMADol (ULTRAM) 50 mg tablet Take 50 mg by mouth every 8 hours as needed for pain. - SUMAtriptan (IMITREX) 100 mg tablet Take 1 tablet by mouth as needed. at onset of headache.May repeat after 2 hours. - LORazepam (ATIVAN) 1 mg tablet Take 1 tablet by mouth every 8 hours. - promethazine (PHENERGAN) 25 mg tablet Take 1 tablet by mouth every 4 hours as needed for Nausea/Vomiting. Facility-Administered Medications as of 08/24/2024 - onabotulinum toxin type A 100 Units injection (BOTOX) Problem List As Of Date 08/24/2024 Noted Resolved Gastroesophageal reflux disease [K21.9] 04/21/2011 Laparotomy, Excision of esophageal leiomyoma an*04/21/2011 01/30/2015 Atelectasis [J98.11] 04/22/2011 04/27/2011 Postoperative pain [G89.18] 04/22/2011 05/02/2011 Migraine [G43.909] 04/23/2011 03/13/2015 Stress hyperglycemia [R73.9] 04/23/2011 04/23/2011 Tachycardia [R00.0] 04/23/2011 04/23/2011 DVT prophylaxis [EVV6859] 04/23/2011 05/02/2011 Discharge Planning [Z71.89] 04/23/2011 05/02/2011 GERD (gastroesophageal reflux disease) [K21.9] 03/13/2015 Neck pain [M54.2] 05/21/2022 Motion sickness [T75.3XXA] 01/30/2015 Osteoarthritis [M19.90] 03/18/2016 Fibromyalgia [M79.7] 07/05/2024 Migraine without aura and without status migrai*03/13/2015 Gastroesophageal reflux disease with esophagiti*03/13/2015 Anxiety disorder [F41.9] 08/22/2024 Obesity (BMI 30-39.9) [E66.9] 10/02/2015 Irritable bowel syndrome [K58.9] 08/06/2016 Abdominal pain [R1 (more content not included)... Normal [facility] CREATININE BLDon 08-24-2024 Creatinine [Mass/Vol] 0.82 mg/dL Normal 0.58-0.96 [facility] Comment on above: Order Comment: Michael may Type: BLOOD SPECIMENOrdering Facility: [facility] Address: [address] [place] [address] Performed By: #### C RET1 ####[facility] [employer] [id number] [place] [id number] [place] [facility] Creatinine and Glomerular filtration rate.predicted panel (S/P/Bld) 78 mL/min/1.73m??? Normal >=60 [facility] Comment on above: Order Comment: Michael may Type: BLOOD SPECIMENOrdering Facility: [facility] Address: [address] [place] [address] Result Comment: Juliann mated Glomerular Filtration Rate (eGFR) is calculated using the 2020 CKD-EPI creatinine equation. This equation utilizes serum creatinine, sex, and age as parameters. The creatinine assay has traceable calibration to isotope dilution-mass spectrometry. Refer to KDIGO guidelines for clinical interpretation. In patients with unstable renal function, e.g. those with acute kidney injury, the eGFR may not accurately reflect actual GFR. Performed By: #### C RET1 ####[facility] [employer] [id number] [place] [id number] [facility] CNOVon 08-23-2024 CNOV Office Visit (GENSME ) -------- TEVIN VILLAGOMEZ ([id number]) 1955 F Date Time Provider Department 08/23/24 8:15 AM CHRISTY PEREZ During your visit today, we recorded the following information about you: Temperature Pulse Respiration Blood pressure 98.2 degrees 104/minute 16/minute 94/65 Weight Height 74 kg 1.549 m Nora Bai MA 08/23/2024 8:48 AM Signed Patient presents with: Stabbing pain in incision area: From hernia Nausea Last 3 Encounter BP Readings: Date: BP: 08/23/2024 94/65 08/08/2024 124/68 08/01/2024 130/84 LDL Cholesterol (mg/dL) Date Value 03/13/2015 155 HBA1C: No results found for: HBA1C Protein, Urine (mg/dL) Date Value 08/08/2024 Neg Diabetic Foot and Retinal Eye Exam not Overdue Christy Perez MD 08/23/2024 8:23 AM Signed Call to schedule the CT scan. I will call you with the results. Christy Perez MD 08/23/2024 8:48 AM Signed GENERAL SURGERY PROGRESS NOTES PATIENT NAME: Tevin Villagomez Assessment ASSESSMENT/PLAN: (R10.31) RLQ abdominal pain (primary encounter diagnosis) (Z01.812) Encounter for preprocedural laboratory examination (R11.0) Nausea Tevin presents with right lower quadrant abdominal pain and nausea. On exam her pain is mainly in the right lower quadrant, possible groin. With her body habitus it is difficult to palpate for a hernia. I would like to obtain a CT scan to further assess. I will call her with these results. I have encouraged her to follow-up with Dr. Ojeda for evaluation of the nausea. She is comfortable with this plan. Office Visit on 08/23/24 CT ABD/PEL W IVCON CREATININE BLD atorvastatin (LIPITOR) 10 mg tablet buPROPion SR (WELLBUTRIN SR) 100 mg 12 hr tablet folic acid 1 mg tablet gabapentin (NEURONTIN) 600 mg tablet lansoprazole (PREVACID) 30 mg capsule meloxicam (MOBIC) 7.5 mg tablet mirtazapine (REMERON) 15 mg tablet pregabalin (LYRICA) 50 mg capsule zolpidem (AMBIEN) 5 mg tablet iv contrast (will be provided with radiology test) enteric contrast (will be provided with radiology test) SUBJECTIVE CHIEF COMPLAINT: Patient presents with: Stabbing pain in incision area: From hernia Nausea INTERVAL HISTORY OF PRESENT ILLNESS: Tevin is a 69-year-old female status post laparoscopic incisional hernia repair in May 2022. This was complicated by a wound infection requiring VAC closure. 3 weeks ago she was working and started feeling discomfort in her right lower quadrant. She will feel pain across her lower abdomen. She has been experiencing nausea. She denies vomiting, diarrhea, or constipation. She does state that she had nausea when she had her last hernia. She does see Dr. Ojeda. She presents today for surgical evaluation. 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 Ojeda Gout Hiatal hernia Leiomyoma 04/22/2011 ESOPHAGUS, excised 04/22/2011 Levoscoliosis of thoracic spine Migraine Neck pain cervicle fusion 03/05 Open wound with complication 08/22/2024 Osteoarthritis ? RA Dr Lindsey mtx and [place] Osteoporosis Other specified abdominal hernia without obstruction or gangrene Vaginal vault prolapse after hysterectomy PAST SURGICAL HISTORY Procedure Laterality Date ARTHROSCOPY KNEE DIAGNOSTIC W/WO SYNOVIAL BX SPX Right 2016 meniscus repair BLADDER SURGERY HX BREAST AUGMENTATION WITH IMPLANT 1991 Breast augmentation BUNIONECTOMY, LAPIDUS-TYPE Bilat. COMPLEX CYSTOMETROGRAM VOIDING PRESSURE STUDIES 08/08/2024 CYSTOURETHROSCOPY 08/08/2024 EGD 02/2016 Dr. Ojeda EGD - BALLOON DILATION, GUIDE 01/2022 ESOPHAGOGASTRODUODENOSCO PY TRANSORAL DIAGNOSTIC 11/[address] Ojeda EXT HYSTERECTOMY,W/PARTIAL VAGINECTO benign causes I AND D ABSCESS, COMPLICATED N/A 06/28/2022 abdominal wound abscess KIDNEY STONE SURGERY HX Ureteral stents PALOMO W/O FACETEC FORAMOT/DSC 06/23 VRT SGM CRV 02/2014 cervicle fusion LAPAROSCOPY SURG CHOLECYSTECTOMY 04/2011 Cholecystectomy, lap MAMMOTOME BIOPSY RIGHT 2013 PAST SURGICAL HISTORY OF 2016 MOHS for basal cell on her back PAST SURGICAL HISTORY OF 03/2016 R TKA PAST SURGICAL HISTORY OF 06/28/2022 Incision and drainage of abdominal wound infection/abscess. Dr. Glynn REPAIR INCISIONAL HERNIA,REDUCIBLE 06/06/[address] Perez RPR PARAESOPH HIATAL HERNIA W/LAPT W/O MESH 04/22/2011 Laparotomy, Excision of esophageal leiomyoma and repair of esophageal wall, Esophagogastroscopy, Aditi fundoplication for Short esophagus, Type I hiatal hernia and Esophageal leiomyoma TON (more content not included)... Normal [facility] CNPNon 08-09-2024 CNPN Telephone (AUGUSTIN) -------- TEVIN VILLAGOMEZ ([id number]) 1955 F Date Time Provider Department 08/09/24 SIXTO KNOWLES During your visit today, we recorded the following information about you: Gloria Yang, RN 08/09/2024 5:00 PM Signed Botox referral received for 100 units -- 1st injection. Added CPT codes to auth. Will monitor status. LV: 08/08 with Benson OAB (overactive bladder) We discussed the patient's options for her OAB which include expectant management, behavioral modification and bladder training, pelvic floor rehabilitation, anticholinergic medications, Myrbetriq (a B3 adrenergic agonist), or a combination of these treatment modalities. We also discussed the option of sacroneuromodulation (Interstim), UrgentPC, REVI or Intravesical Botox. We discussed the importance of decreasing/eliminating her caffeine intake to help improve her urgency and frequency. The patient was counseled on the importance of kegel exercises for urge control. She was given a handout on OAB, bladder training and pelvic floor exercises. We discussed the risks of Botox including recurrent bladder infections, voiding dysfunction and the need for clean intermittent self-catheterization. There is also a small risk of bladder or bowel injury. Patient has met [facility] medical necessity criteria because she has had symptoms for several years, and it has impacted her quality of life. She has not responded to medication (including oxybutynin), conservative treatment (kegel, diet modification, pelvic muscle exercises, fluid management, timed voids, bladder retraining), other surgical produres. For these reasons she is a good candidate for botox. We will plan to do an intravesical botox injection. She was given educational information on botox. 100 units. If Botox does not work, will consider interstim. Will schedule after Botox is approved. Gloria Yang RN August 09, 2024 5:00 PM Gloria Yang RN 08/17/2024 12:05 PM Signed 100 units Botox approved Q90 days through 08/11/25. Updated sticky note. Per [facility] - pt will need ppx abx. Sending to WP to schedule pt. Gloria Yang RN August 17, 2024 12:05 PM === PHARMACY TEAM ==== APPROVAL RECEIVED Benefit Type: Medical Insurance Name: [employer] [facility] [employer] HMO Servicing Location Tax ID: [id number] Authorization received via fax Drug Name(s) AND HCPCS Code(s): Botox J0585 Approval Date Range: 08/11/2024 to 08/11/2025 Approval #: [id number] Dose AND Frequency: 100 units every 90 days for 1 year # Visits/Treatments (if applicable): Estelle Keyes 08/19/2024 1:19 PM Signed Left message for pt to call the office to schedule. Xiomy Valenzuela RN 08/19/2024 2:52 PM Signed Sent myc with ppx abx instructions. Will monitor read status. Xiomy Valenzuela RN August 19, 2024 2:52 PM Xiomy Valenzuela RN 08/23/2024 1:54 PM Signed Called patient, verified by name and date of . Reviewed ppx abx instructions with patient. Confirmed she is not taking any blood thinners. Patient had no questions at this time. Xiomy Valenzuela RN August 23, 2024 1:54 PM Allergies As of Date: 08/09/2024 (No Known Allergies) Date Reviewed: 08/08/2024 Reviewed by: Sixto Knowles MD - Fully Assessed Reason for Visit: Care Coordination [3491] Cmt: Botox Prescriptions as of 08/23/2024 - iv contrast (will be provided with radiology test) CT ABD/PEL -Inject, intravenously, once for 1 dose.No IV access, insert saline lock prior to the beginning of sedation, infusion, injection of imaging exam. Discontinue saline lock post exam. If Pt. has a central line or IVAD, may access for administration according to line specific nursing protocol. Once exam is complete flush line and de-access according to line specific nursing protocol in the CT contrast administration guidelines link. - enteric contrast (will be provided with radiology test) For CT ABD/PEL W IVCON Routine order Administer, As Directed One Time Only, via Oral, Rectal, both Oral and Rectal, Enteric Tube, Stoma or Indwelling Catheter, Enteric Contrast as designated per enteric contrast guidelines - atorvastatin (LIPITOR) 10 mg tablet Take 1 tablet by mouth every afternoon. - buPROPion SR (WELLBUTRIN SR) 100 mg 12 hr tablet Take 100 mg by mouth two times a day. - folic acid 1 mg tablet Take 1 mg by mouth once daily. - gabapentin (NEURONTIN) 600 mg tablet Take 600 mg by mouth three times a day. - lansoprazole (PREVACID) 30 mg capsule Take 30 mg by mouth once daily. - meloxicam (MOBIC) 7.5 mg tablet Take 7.5 mg by mouth once daily. - mirtazapine (REMERON) 15 mg tablet Take 15 mg by mouth daily at bedtime. - pregabalin (LYRICA) 50 mg capsule Take 50 mg by mouth two times a day. - zolpidem (AMBIEN) 5 mg tablet Take 5 mg by mouth at bedtime as needed. - (more content not included)... Normal [facility] UA DIP B/OOrdered By: Chriss Boston on 08-08-2024 Bilirubin Ql (U) Negative Neg [facility] Color/Appearance Clear, Yellow comment: [facility] Glucose Ql (U) Negative Neg mg/dL [facility] Hemoglobin Ql (U) Negative Neg [facility] Ketones Ql (U) Negative Neg [facility] Leukocytes Negative Neg [facility] Nitrite Ql (U) Negative Neg [facility] pH (U) 6 [pH] 4.5 - 8.0 [facility] Protein.monoclonal (U) [Mass/Vol] Negative Neg mg/dL [facility] Specific [place], Ur 1.005 1.005 - 1.030 [facility] Urobilinogen, Urine Normal Normal (<1.1) EU [facility] CNOVon 08-01-2024 CNOV Office Visit (GYURWP ) -------- DAHLIATEVIN Joseph ([id number]) 1955 F Date Time Provider Department 08/01/24 9:45 AM SIXTO KNOWLES During your visit today, we recorded the following information about you: Blood pressure 130/84 Sixto Knowles MD 08/01/2024 11:23 AM Signed Female Pelvic Medicine AND Reconstructive Surgery Follow-Up Tevin Villagomez is a 69 year old female, who presents for a follow-up of urinary incontinence, urinary urgency, urinary frequency. History since last visit: Pt on myrbetriq but it is not working since 07/11/24. During the night is worse. Pt also felt her prolapse is back since February. She has tried solifenacin and Myrbetriq and is not seeing any improvement. She has had some issues with urinary tract infection but her last symptomatic infection was in March 2024. ALLERGIES No Known Allergies Current Outpatient Medications Medication Sig mirabegron (MYRBETRIQ) 25 mg Tb24 Take 1 tablet by mouth once daily. estradiol (ESTRACE) 0.01 % (0.1 mg/gram) vaginal cream Apply a pea size amount to the vagina nightly for two weeks then 3 weeks for 1 year sertraline (ZOLOFT) 50 mg tablet Take 2 tablets by mouth daily at bedtime. esomeprazole (NEXIUM) 40 mg capsule Take 40 mg by mouth daily at 6 am. levothyroxine (SYNTHROID) 25 mcg tablet Take 25 mcg by mouth once daily. solifenacin (VESICARE) 5 mg tablet Take 1 tablet by mouth once daily. (Patient not taking: Reported on 08/01/2024) cephALEXin (KEFLEX) 250 mg capsule Take 1 capsule by mouth once daily. (Patient not taking: Reported on 08/01/2024) ibuprofen (MOTRIN) 600 mg tablet Take 1 tablet by mouth every 8 hours as needed for pain or fever (specify temp.). dicyclomine (BENTYL) 20 mg tablet Take 20 mg by mouth twice daily. (Patient not taking: Reported on 02/01/2024) sucralfate (CARAFATE) 1 gram tablet Take 1 g by mouth daily at bedtime. denosumab (PROLIA) 60 mg/mL 60 mg by Injection - FOR ORTHO USE ONLY route once every 6 months. meclizine (ANTIVERT) 12.5 mg tab Take 1 tablet by mouth twice daily as needed (dizziness). (Patient not taking: Reported on 12/17/2022) traMADol (ULTRAM) 50 mg tablet Take 50 mg by mouth every 8 hours as needed for pain. SUMAtriptan (IMITREX) 100 mg tablet Take 1 tablet by mouth as needed. at onset of headache.May repeat after 2 hours. LORazepam (ATIVAN) 1 mg tablet Take 1 tablet by mouth every 8 hours. (Patient taking differently: Take 1 mg by mouth two times a day as needed for anxiety.) acetaminophen 325 mg-caffeine 40 mg-butalbital 50 mg (FIORICET) per tablet Take 1 tablet by mouth every 6 hours as needed. (Patient taking differently: Take 1 tablet by mouth every 6 hours as needed for headache or pain.) promethazine (PHENERGAN) 25 mg tablet Take 1 tablet by mouth every 4 hours as needed for Nausea/Vomiting. No current facility-administered medications for this visit. PAST SURGICAL HISTORY Procedure Laterality Date ARTHROSCOPY KNEE DIAGNOSTIC W/WO SYNOVIAL BX SPX Right 2016 meniscus repair BLADDER SURGERY HX BREAST AUGMENTATION WITH IMPLANT 1991 Breast augmentation BUNIONECTOMY, LAPIDUS-TYPE 1989' Bilat. EGD 02/2016 Dr. Rusty GALLOWAY - BALLOON DILATION, GUIDE 01/2022 ESOPHAGOGASTRODUODENOSCO PY TRANSORAL DIAGNOSTIC 11/[address] Ojeda EXT HYSTERECTOMY,W/PARTIAL VAGINECTO benign causes I AND D ABSCESS, COMPLICATED N/A 06/28/2022 abdominal wound abscess KIDNEY STONE SURGERY HX Ureteral stents PALOMO W/O FACETEC FORAMOT/DSC 06/23 VRT SGM CRV 02/2014 cervicle fusion LAPAROSCOPY SURG CHOLECYSTECTOMY 04/2011 Cholecystectomy, lap MAMMOTOME BIOPSY RIGHT 2013 PAST SURGICAL HISTORY OF 2015 MOHS for basal cell on her back PAST SURGICAL HISTORY OF 03/2016 R TKA PAST SURGICAL HISTORY OF 06/28/2022 Incision and drainage of abdominal wound infection/abscess. Dr. Glynn REPAIR INCISIONAL HERNIA,REDUCIBLE 06/06/[address] Perez RPR PARAESOPH HIATAL HERNIA W/LAPT W/O MESH 04/22/2011 Laparotomy, Excision of esophageal leiomyoma and repair of esophageal wall, Esophagogastroscopy, Aditi fundoplication for Short esophagus, Type I hiatal hernia and Esophageal leiomyoma TONSILLECTOMY PRIMARY/SECONDARY Tonsillectomy PAST MEDICAL HISTORY Diagnosis Date Acquired hypothyroidism Anxiety Cystourethrocele Dysphagia Fibromyalgia GERD (gastroesophageal reflux disease) s/p surgery now controlled with zantac, Dr. Ojeda Hiatal hernia Leiomyoma 04/22/2011 ESOPHAGUS, excised 04/22/2011 Levoscoliosis of thoracic spine Migraine Neck pain cervicle fusion 03/05 Osteoarthritis ? RA Dr Lindsey mtx and irving Vaginal vault prolapse after hysterectomy FAMILY HISTORY Problem Relation Age of Onset Cancer Mother Lung at 72 y/o Psychiatry Mother nervous breakdown, had shock therapy Cancer Father Lung at (more content not included)... Normal [facility] CNOVon 07-11-2024 CNOV Office Visit (BARRY ) -------- TEVIN VILLAGOMEZ ([id number]) 1955 F Date Time Provider Department 07/11/24 9:00 AM LAURA MCMANUS During your visit today, we recorded the following information about you: Pulse Blood pressure 84/minute 125/81 Laura Mcmanus MD 07/11/2024 10:16 AM Signed Female Pelvic Medicine AND Reconstructive Surgery Follow-Up Tevin Villagomez is a 69 year old female, who presents for a follow-up of microscopic hematuria, OAB. MARIELA 02/24/24: IMPRESSION: Tevin Villagomez presents today for a diagnostic cystoscopy. Indication: recurrent UTI with history of bladder sling PLAN: -Repeat UA with micro in 2-4 weeks. If >3-5 RBCs/hpf she will needs CT urogram for microhematuria workup. I have discussed this with the patient. - For OAB, Trial vesicare- follow up virtual 4-6 weeks. Discuss SNM vs Botox. Pt leaning towards Botox. Laura Mcmanus MD History since last visit: Repeat UA Micro, ordered but not completed. Pt states the vesicare is not working at all. Voiding every 30 min to 1 hour. Getting up 5-6 times at night. 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 She has a previous history of an abnormal mammogram with benign breast biopsy. LMP: No LMP recorded. Patient has had a hysterectomy.; Menopause yes: Menstrual history: Menarche: 12; Deliveries: I have confirmed and edited as necessary, the PFSH obtained by others. Laura Mcmanus MD Curatorial Assistant offered: Patient accepts, visit chaperoned by RN. SENSITIVE EXAM: The sensitive examination was discussed with the Patient or Patient's Authorized Packager Head. As applicable, any other physician, advance practice provider, medical student, or other health professional student that will be observing or involved in the sensitive examination for educational or training purposes was discussed with the Patient or Authorized Packager Head. The Patient or Authorized Packager Head has agreed to proceed with the sensitive examination. (Sensitive examination includes inspection and/or palpation of the breasts, pelvis, prostate and anorectal regions). OBJECTIVE: BP 125/81 Pulse 84 General: Well appearing, alert, in no acute distress, well-hydrated, well nourished. Abdomen: Abdomen soft, non-tender UA results: normal Impression: Tevin Villagomez is a 69 year old female with urinary urgency/frequency, stress incontinence, abnormal UA. Plan: Assessment AND Plan Urinary frequency Patient reports vesicare hasn't made any difference in her frequency. Continues to void every hour. We discussed trialing Myrbetriq 25mg daily, will follow up 4-6 weeks to discuss efficacy. Call office if medication is not covered by insurance. Orders: UA DIP, URINE (POC) Stress incontinence in female We discussed diagnosis of stress urinary incontinence and treatment options including: expectant management, pelvic floor physical therapy, incontinence pessary or Poise impressa, urethral bulking, or mid-urethral sling. After long discussion, she desires observation. Abnormal urinalysis Urinalysis- negative today. No further workup for microhematuria Follow up 4-6 weeks OAB med check Medical Decision Making: Problems: Moderate: 2+ stable chronic illnesses Data: Unique test result(s) reviewed: 2 Unique test(s) ordered: 1 Risk: Moderate: Drug management Medical Decision Making Level: 4 - Moderate Laura Mcmanus MD Allergies As of Date: 07/11/2024 (No Known Allergies) Date Reviewed: 07/11/2024 Reviewed by: Laura Ferguson RN - Fully Assessed Reason for Visit: Urinary Problem [252] Primary Visit Diagnosis:Urinary frequency [R35.0] Other Visit Diagnoses:Stress incontinence in female [N39.3] Abnormal urinalysis [R82.90] Order(s):UA DIP, URINE (POC) [[id number]] Order #: [id number]. #:[id number] mirabegron (MYRBETRIQ) 25 mg [id number] 1 tablet by mouth once daily.Disp: 30 tabletRfl: 2 Prescriptions as of 07/11/2024 - mirabegron (MYRBETRIQ) 25 mg Tb24 Take 1 tablet by mouth once daily. - solifenacin (VESICARE) 5 mg tablet Take 1 tablet by mouth once daily. - cephALEXin (KEFLEX) 250 mg capsule Take 1 capsule by mouth once daily. - estradiol (ESTRACE) 0.01 % (0.1 mg/gram) vaginal cream Apply a pea size amount to the vagina nightly for two weeks then 3 weeks for 1 year - sertraline (ZOLOFT) 50 mg tablet Take 2 tablets by mouth daily at bedtime. - ibuprofen (MOTRIN) 600 mg tablet Take 1 tablet by mouth every 8 hours as ne (more content not included)... Normal [facility] UA DIP, URINE (POC)on 2024 BILIRUBIN UA (POCT) Negative Negative [facility] CLARITY UA (POCT) Clear [facility] COLOR UA (POCT) Yellow [facility] GLUCOSE UA (POCT) Negative Negative mg/dL [facility] Hemoglobin Ql (U) Negative Negative [facility] KETONE UA (POCT) Negative Negative mg/dL [facility] LEUKOCYTES UA (POCT) Negative Negative [facility] NITRITE UA (POCT) Negative Negative [facility] PH UA (POCT) 7.5 4.5 - 8.0 [facility] Protein Ql (U) Negative Negative mg/dL [facility] SPECIFIC GRAVITY UA (POCT) 1.020 1.005 - 1.030 [facility] UROBILINOGEN UA (POCT) 0.2 Kellee l E.U./dL [facility] Location:[facility], [address] [place] [address], [address] [place] [address] POINT OF CARE [facility] [place] 07-05-2024 FLORINDA Telephone (BARRY) -------- TEVIN VILLAGOMEZ ([id number]) 1955 F Date Time Provider Department 07/05/24 LAURA MCMANUS During your visit today, we recorded the following information about you: Rukhsana Enriquez Ma 07/05/2024 1:41 PM Signed Patient has questions regarding Medications. She would like to speak to someone before her appointment on Thursday. She called the beginning of May with concerns, and never received a call back. Please call Sam Andrade RN 07/05/2024 2:09 PM Signed Called patient, confirmed name and . Patient has appointment scheduled for 07/11/24 at 9 am. Per epic encounter on 05/26/2024 patient wanted an alternative medication to Vesicare because it wasn't effective, patient was advised to discuss this at follow-up appointment with Dr. Mcmanus and to give the medication more time to be effective. Patient requesting a refill of Vesicare and stated it hasn't helped one little bit. This RN advised patient to discuss alternative medications/therapies with Dr. Mcmanus at her appointment on Thursday. Patient agreeable. Pharmacy updated to [facility] in [place]. Sam Andrade RN Allergies As of Date: 07/05/2024 (No Known Allergies) Date Reviewed: 02/29/2024 Reviewed by: Laura Ferguson - Fully Assessed Reason for Visit: Patient Question [1477] Prescriptions as of 07/05/2024 - solifenacin (VESICARE) 5 mg tablet Take 1 tablet by mouth once daily. - cephALEXin (KEFLEX) 250 mg capsule Take 1 capsule by mouth once daily. - estradiol (ESTRACE) 0.01 % (0.1 mg/gram) vaginal cream Apply a pea size amount to the vagina nightly for two weeks then 3 weeks for 1 year - sertraline (ZOLOFT) 50 mg tablet Take 2 tablets by mouth daily at bedtime. - ibuprofen (MOTRIN) 600 mg tablet Take 1 tablet by mouth every 8 hours as needed for pain or fever (specify temp.). - dicyclomine (BENTYL) 20 mg tablet Take 20 mg by mouth twice daily. - sucralfate (CARAFATE) 1 gram tablet Take 1 g by mouth daily at bedtime. - denosumab (PROLIA) 60 mg/mL 60 mg by Injection - FOR ORTHO USE ONLY route once every 6 months. - meclizine (ANTIVERT) 12.5 mg tab Take 1 tablet by mouth twice daily as needed (dizziness). - esomeprazole (NEXIUM) 40 mg capsule Take 40 mg by mouth daily at 6 am. - levothyroxine (SYNTHROID) 25 mcg tablet Take 25 mcg by mouth once daily. - traMADol (ULTRAM) 50 mg tablet Take 50 mg by mouth every 8 hours as needed for pain. - SUMAtriptan (IMITREX) 100 mg tablet Take 1 tablet by mouth as needed. at onset of headache.May repeat after 2 hours. - LORazepam (ATIVAN) 1 mg tablet Take 1 tablet by mouth every 8 hours. - acetaminophen 325 mg-caffeine 40 mg-butalbital 50 mg (FIORICET) per tablet Take 1 tablet by mouth every 6 hours as needed. - promethazine (PHENERGAN) 25 mg tablet Take 1 tablet by mouth every 4 hours as needed for Nausea/Vomiting. Problem List As Of Date 07/05/2024 Noted Resolved GERD (gastroesophageal reflux disease) [K21.9] 04/21/2011 04/27/2011 Laparotomy, Excision of esophageal leiomyoma an*04/21/2011 01/30/2015 Atelectasis [J98.11] 04/22/2011 04/27/2011 Postoperative pain [G89.18] 04/22/2011 05/02/2011 Migraine [G43.909] 04/23/2011 03/13/2015 Stress hyperglycemia [R73.9] 04/23/2011 04/23/2011 Tachycardia [R00.0] 04/23/2011 04/23/2011 DVT prophylaxis [OXS4644] 04/23/2011 05/02/2011 Discharge Planning [Z71.89] 04/23/2011 05/02/2011 GERD (gastroesophageal reflux disease) [K21.9] 03/13/2015 Neck pain [M54.2] 05/21/2022 Motion sickness [T75.3XXA] 01/30/2015 Osteoarthritis [M19.90] Fibromyalgia [M79.7] Migraine without aura and without status migrai*03/13/2015 Gastroesophageal reflux disease with esophagiti*03/13/2015 Anxiety and depression [F41.9, F32.A] Obesity (BMI 30-39.9) [E66.9] 10/02/2015 Irritable colon [K58.9] 08/06/2016 Abdominal pain [R10.9] 10/02/2016 10/04/2016 Malnutrition of moderate degree (HCC) [E44.0] 10/03/2016 Nausea and vomiting [R11.2] 10/04/2016 10/04/2016 Diarrhea [R19.7] 10/04/2016 10/04/2016 Dilated bile duct [K83.8] 10/06/2016 S/P ERCP [Z98.890] 10/06/2016 Acquired hypothyroidism [E03.9] Levoscoliosis of thoracic spine [M41.84] Dysphagia [R13.10] Incisional hernia, without obstruction or gangr*06/06/2022 PONV (postoperative nausea and vomiting) [R11.2*06/06/2022 Obesity, Class I, BMI 30-34.9 [E66.811] 06/06/2022 S/P hernia repair [Z98.890, Z87.19] 06/07/2022 Abdominal wall abscess at site of surgical woun*06/27/2022 Leukocytosis [D72.829] 06/27/2022 07/02/2022 Cellulitis of left hand [L03.114] 05/18/2023 Hyponatremia [E87.1] 05/18/2023 05/20/2023 Kidney stone [N20.0] 02/09/2024 Encounter Status:Closed by SAM ANDRADE on 07/05/24 Normal [facility] CBC W/Diff, Automatedon 06-22 Absolute Lymph 1.97 X10 3/uL Normal 0.83-4.51 [facility] Comment on above: Performed By: #### L 501.9520, L500.4100, L506.0250, L500.4050, L100.0100 #### [facility] [address] [place], [address] Absolute Neut 4.1 X10 3/uL Normal 2.0-7.7 [facility] Comment on above: Performed By: #### L 501.9520, L500.4100, L506.0250, L500.4050, L100.0100 #### [facility] [address] [place], [address] Basophils/100 WBC (Bld) 0.5 % Normal 0-1 [facility] Comment on above: Performed By: #### L 501.9520, L500.4100, L506.0250, L500.4050, L100.0100 #### [facility] [address] [place], [address] Eosinophils/100 WBC (Bld) 1.7 % Normal 0-5 [facility] Comment on above: Performed By: #### L 501.9520, L500.4100, L506.0250, L500.4050, L100.0100 #### [facility] [address] [place], [address] Erythrocyte distribution width (RBC) [Ratio] 13.2 % Normal 11.6-14.6 [facility] Comment on above: Performed By: #### L 501.9520, L500.4100, L506.0250, L500.4050, L100.0100 #### [facility] [address] [place], [address] Hematocrit (Bld) [Volume fraction] 40.3 % Normal 37-47 [facility] Comment on above: Performed By: #### L 501.9520, L500.4100, L506.0250, L500.4050, L100.0100 #### [facility] [address] [place], [address] Hemoglobin (Bld) [Mass/Vol] 13.2 g/dL Normal 12.0-15.0 [facility] Comment on above: Performed By: #### L 501.9520, L500.4100, L506.0250, L500.4050, L100.0100 #### [facility] [address] [place], [address] IG% 0.200 Normal 0.0-0.9 [facility] Comment on above: Result Comment: IG% - Immature Granulocytes (promyelocytes, myelocytes and metamyelocytes) > 1% indicates that a LEFT SHIFT is Present. Performed By: #### L 501.9520, L500.4100, L506.0250, L500.4050, L100.0100 #### [facility] [address] [place], [address] Lymphocytes/100 WBC (Bld) 29.7 % Normal 19-41 [facility] Comment on above: Performed By: #### L [id number], L500.4100, L506.0250, L500.4050, L100.0100 #### [facility] [address] [place], [address] MCH (RBC) [Entitic mass] 29.1 pg Normal 27.0-32.0 [facility] Comment on above: Performed By: #### L 501.9520, L500.4100, L506.0250, L500.4050, L100.0100 #### [facility] [address] [place], [address] MCHC (RBC) [Mass/Vol] 32.8 g/dL Normal 32-36 [facility] Comment on above: Performed By: #### L 501.9520, L500.4100, L506.0250, L500.4050, L100.0100 #### [facility] [address] [place], [address] MCV (RBC) [Entitic vol] 89.0 fL Normal 81-99 [facility] Comment on above: Performed By: #### L 501.9520, L500.4100, L506.0250, L500.4050, L100.0100 #### [facility] [address] [place], [address] Monocytes/100 WBC (Bld) 6.9 % Normal 0-10 [facility] Comment on above: Performed By: #### L 501.9520, L500.4100, L506.0250, L500.4050, L100.0100 #### [facility] [address] [place], [address] Neutrophils/100 WBC (Bld) 61.0 % Normal 47-70 [facility] Comment on above: Performed By: #### L 501.9520, L500.4100, L506.0250, L500.4050, L100.0100 #### [facility] [address] [place], [address] Nucleated RBC (Bld) [#/Vol] 0 10*3/uL Normal 0-5 [facility] Comment on above: Performed By: #### L 501.9520, L500.4100, L506.0250, L500.4050, L100.0100 #### [facility] [address] [place], [address] Platelet mean volume (Bld) [Entitic vol] 9.3 fL Normal 6.2-12.0 [facility] Comment on above: Performed By: #### L 501.9520, L500.4100, L506.0250, L500.4050, L100.0100 #### [facility] [address] [place], [address] Platelets (Bld) [#/Vol] 221 10*3/uL Normal 150-450 [facility] Comment on above: Performed By: #### L 501.9520, L500.4100, L506.0250, L500.4050, L100.0100 #### [facility] [address] [place], [address] RBC (Bld) [#/Vol] 4.53 10*6/uL Normal 4.2-5.4 [facility] Comment on above: Performed By: #### L 501.9520, L500.4100, L506.0250, L500.4050, L100.0100 #### [facility] [address] [place], [address] RDW SD 43.4 fl Normal 35.1-43.9 [facility] Comment on above: Performed By: #### L 501.9520, L500.4100, L506.0250, L500.4050, L100.0100 #### [facility] [address] [place], [address] WBC (Bld) [#/Vol] 6.6 10*3/uL Normal 4.4-11.0 [facility] Comment on above: Performed By: #### L 501.9520, L500.4100, L506.0250, L500.4050, L100.0100 #### [facility] [address] [place], [address] Comprehensive Metabolic Prof ilon 07-04-2024 Albumin [Mass/Vol] 3.5 g/dL Normal 3.2-5.0 [facility] Comment on above: Order Comment: N Performed By: #### L 501.9520, L500.4100, L506.0250, L500.4050, L100.0100 #### [facility] [address] [place], [address] Albumin/Globulin [Mass ratio] 0.9 {ratio} Normal 0.9-2.4 [facility] Comment on above: Order Comment: N Performed By: #### L 501.9520, L500.4100, L506.0250, L500.4050, L100.0100 #### [facility] [address] [place], [address] ALK P 136 U/L High 45-117 [facility] Comment on above: Order Comment: N Performed By: #### L 501.9520, L500.4100, L506.0250, L500.4050, L100.0100 #### [facility] [address] [place], [address] ALT [Catalytic activity/Vol] 15 U/L Normal 13-56 [facility] Comment on above: Order Comment: N Performed By: #### L 501.9520, L500.4100, L506.0250, L500.4050, L100.0100 #### [facility] [address] [place], [address] AST [Catalytic activity/Vol] 14 U/L Low 15-37 [facility] Comment on above: Order Comment: N Performed By: #### L 501.9520, L500.4100, L506.0250, L500.4050, L100.0100 #### [facility] [address] [place], [address] Bilirubin [Mass/Vol] 0.30 mg/dL Normal 0.20-1.00 [facility] Comment on above: Order Comment: N Result Comment: For patients on eltrombopag therapy, use of Dimension [place] TBIL is not recommended. Performed By: #### L 501.9520, L500.4100, L506.0250, L500.4050, L100.0100 #### [facility] [address] [place], [address] BUN/CRE 12.8 RATIO Normal 10-20 [facility] Comment on above: Order Comment: N Performed By: #### L 501.9520, L500.4100, L506.0250, L500.4050, L100.0100 #### [facility] [address] [place], [address] CA,Total 9.3 mg/dL Normal 8.5-10.1 [facility] Comment on above: Order Comment: N Performed By: #### L 501.9520, L500.4100, L506.0250, L500.4050, L100.0100 #### [facility] [address] [place], [address] Chloride [Moles/Vol] 103 mmol/L Normal 98-107 [facility] Comment on above: Order Comment: N Performed By: #### L 501.9520, L500.4100, L506.0250, L500.4050, L100.0100 #### [facility] [address] [place], [address] CO2 [Moles/Vol] 32.0 mmol/L Normal 21.0-32.0 [facility] Comment on above: Order Comment: N Performed By: #### L 501.9520, L500.4100, L506.0250, L500.4050, L100.0100 #### [facility] [address] [place], [address] Creatinine [Mass/Vol] 0.86 mg/dL Normal 0.55-1.02 [facility] Comment on above: Order Comment: N Result Comment: The validity of the calculated GFR GFRAA in patients over 70 years has not been determined. Clinical correlation is essential. Performed By: #### L 501.9520, L500.4100, L506.0250, L500.4050, L100.0100 #### [facility] [address] [place], [address] EST GFR - AA 84 mL/min Normal >60 [facility] Comment on above: Order Comment: N Result Comment: Afri can [place]ian GFR Calc Performed By: #### L 501.9520, L500.4100, L506.0250, L500.4050, L100.0100 #### [facility] [address] [place], [address] GAP 3 Low 5-15 [facility] Comment on above: Order Comment: N Performed By: #### L 501.9520, L500.4100, L506.0250, L500.4050, L100.0100 #### [facility] [address] [place], [address] GFR/1.73 sq M.predicted among non-blacks MDRD (S/P/Bld) [Vol rate/Area] 69 mL/min/{1.73_m2} Normal >60 [facility] Comment on above: Order Comment: N Result Comment: Non- GFR Calc Performed By: #### L 501.9520, L500.4100, L506.0250, L500.4050, L100.0100 #### [facility] [address] [place], [address] Globulin (S) [Mass/Vol] 3.9 g/dL Normal 2.2-4.2 [facility] Comment on above: Order Comment: N Performed By: #### L 501.9520, L500.4100, L506.0250, L500.4050, L100.0100 #### [facility] [address] [place], [address] Glucose [Mass/Vol] 104 mg/dL Normal 74-106 [facility] Comment on above: Order Comment: N Result Comment: Fast ing Glucose result from 100 to 125 mg/dL suggests IMPAIRED HOMEOSTASIS per A.D.A. criteria. Performed By: #### L 501.9520, L500.4100, L506.0250, L500.4050, L100.0100 #### [facility] [address] [place], [address] Potassium [Moles/Vol] 4.5 mmol/L Normal 3.5-5.1 [facility] Comment on above: Order Comment: N Performed By: #### L 501.9520, L500.4100, L506.0250, L500.4050, L100.0100 #### [facility] [address] [place], [address] Sodium [Moles/Vol] 138 mmol/L Normal 136-145 [facility] Comment on above: Order Comment: N Performed By: #### L 501.9520, L500.4100, L506.0250, L500.4050, L100.0100 #### [facility] [address] [place], [address] T PROT 7.4 g/dL Normal 6.4-8.2 [facility] Comment on above: Order Comment: N Performed By: #### L 501.9520, L500.4100, L506.0250, L500.4050, L100.0100 #### [facility] [address] [place], [address] Urea nitrogen [Mass/Vol] 11 mg/dL Normal 7-18 [facility] Comment on above: Order Comment: N Performed By: #### L 501.9520, L500.4100, L506.0250, L500.4050, L100.0100 #### [facility] [address] [place], [address] Folates, (Folic Acid)on 06-22 FOLATES 50.90 ng/mL Normal 3.1-55.4 [facility] Comment on above: Order Comment: N Performed By: #### L 501.9520, L500.4100, L506.0250, L500.4050, L100.0100 #### [facility] [address] [place], [address] Lipid Profileon 07-04-2024 Cholesterol [Mass/Vol] 233 mg/dL High 200 [facility] Comment on above: Order Comment: N Result Comment: <200 mg/dL Desirable 200-240 mg/dL Borderline >240 mg/dL High Risk Performed By: #### L 501.9520, L500.4100, L506.0250, L500.4050, L100.0100 #### [facility] [address] [place], [address] Cholesterol in HDL [Mass/Vol] 60 mg/dL Normal [facility] Comment on above: Order Comment: N Result Comment: The drugs N-Acetylcysteine and Metamizole may falsely depress this assay. Reference Range HDL <40 mg/dL Low HDL Cholesterol HDL >or= 60 mg/dL High HDL Cholesterol Performed By: #### L 501.9520, L500.4100, L506.0250, L500.4050, L100.0100 #### [facility] [address] [place], [address] Cholesterol in LDL [Mass/Vol] 142 mg/dL High 0-130 [facility] Comment on above: Order Comment: N Performed By: #### L 501.9520, L500.4100, L506.0250, L500.4050, L100.0100 #### [facility] [address] [place], [address] Cholesterol in VLDL [Mass/Vol] 31 mg/dL Normal 5-40 [facility] Comment on above: Order Comment: N Performed By: #### L 501.9520, L500.4100, L506.0250, L500.4050, L100.0100 #### [facility] [address] [place], [address] Triglyceride [Mass/Vol] 154 mg/dL Normal [facility] Comment on above: Order Comment: N Result Comment: The drugs N-Acetylcysteine and Metamizole may falsely depress this assay. Serum Triglycerides Reference Interval Normal <150 mg/dL Borderline high 150 - 199 mg/dL High 200 - 499 mg/dL Very High > or = 500 mg/dL Performed By: #### L 501.9520, L500.4100, L506.0250, L500.4050, L100.0100 #### [facility] [address] [place], [address] Thyroid Stim Hormone (TSH)on 07-04-2024 TSH 1.650 uIU/mL Normal 0.358-3.74 0 [facility] Comment on above: Order Comment: N Performed By: #### L 501.9520, L500.4100, L506.0250, L500.4050, L100.0100 #### [facility] [address] [place], [address] [facility]20[facility] -------- TEVIN VILLAGOMEZ ([id number]) 1955 F Date Time Provider Department 05/26/24 LAURA MCMANUS During your visit today, we recorded the following information about you: Evon Gonzalez 05/26/2024 2:[address] Mcmanus has her on medications for OAB, but patient states is it not working. She's been on it for over 6 weeks. She goes 4 times in an hour and sometimes she can't stop urinating or control her bladder. Patient would like to see if theres anything else that could help. Xiomy Patiño RN 05/26/2024 3:49 PM Signed Returned patient's call, verified name and . Patient reports taking Vesicare for 6 weeks without any improvement in urinary urgency/frequency. She would like to try an alternative medication. Pharmacy verified, routing to [facility]. Xiomy Patiño RN Allergies As of Date: 05/26/2024 (No Known Allergies) Date Reviewed: 02/29/2024 Reviewed by: Laura Ferguson - Fully Assessed Reason for Visit: Patient Update [1234] Prescriptions as of 05/26/2024 - solifenacin (VESICARE) 5 mg tablet Take 1 tablet by mouth once daily. - cephALEXin (KEFLEX) 250 mg capsule Take 1 capsule by mouth once daily. - estradiol (ESTRACE) 0.01 % (0.1 mg/gram) vaginal cream Apply a pea size amount to the vagina nightly for two weeks then 3 weeks for 1 year - sertraline (ZOLOFT) 50 mg tablet Take 2 tablets by mouth daily at bedtime. - ibuprofen (MOTRIN) 600 mg tablet Take 1 tablet by mouth every 8 hours as needed for pain or fever (specify temp.). - dicyclomine (BENTYL) 20 mg tablet Take 20 mg by mouth twice daily. - sucralfate (CARAFATE) 1 gram tablet Take 1 g by mouth daily at bedtime. - denosumab (PROLIA) 60 mg/mL 60 mg by Injection - FOR ORTHO USE ONLY route once every 6 months. - meclizine (ANTIVERT) 12.5 mg tab Take 1 tablet by mouth twice daily as needed (dizziness). - esomeprazole (NEXIUM) 40 mg capsule Take 40 mg by mouth daily at 6 am. - levothyroxine (SYNTHROID) 25 mcg tablet Take 25 mcg by mouth once daily. - traMADol (ULTRAM) 50 mg tablet Take 50 mg by mouth every 8 hours as needed for pain. - SUMAtriptan (IMITREX) 100 mg tablet Take 1 tablet by mouth as needed. at onset of headache.May repeat after 2 hours. - LORazepam (ATIVAN) 1 mg tablet Take 1 tablet by mouth every 8 hours. - acetaminophen 325 mg-caffeine 40 mg-butalbital 50 mg (FIORICET) per tablet Take 1 tablet by mouth every 6 hours as needed. - promethazine (PHENERGAN) 25 mg tablet Take 1 tablet by mouth every 4 hours as needed for Nausea/Vomiting. Problem List As Of Date 05/26/2024 Noted Resolved GERD (gastroesophageal reflux disease) [K21.9] 04/21/2011 04/27/2011 Laparotomy, Excision of esophageal leiomyoma an*04/21/2011 01/30/2015 Atelectasis [J98.11] 04/22/2011 04/27/2011 Postoperative pain [G89.18] 04/22/2011 05/02/2011 Migraine [G43.909] 04/23/2011 03/13/2015 Stress hyperglycemia [R73.9] 04/23/2011 04/23/2011 Tachycardia [R00.0] 04/23/2011 04/23/2011 DVT prophylaxis [VOC1318] 04/23/2011 05/02/2011 Discharge Planning [Z71.89] 04/23/2011 05/02/2011 GERD (gastroesophageal reflux disease) [K21.9] 03/13/2015 Neck pain [M54.2] 05/21/2022 Motion sickness [T75.3XXA] 01/30/2015 Osteoarthritis [M19.90] Fibromyalgia [M79.7] Migraine without aura and without status migrai*03/13/2015 Gastroesophageal reflux disease with esophagiti*03/13/2015 Anxiety and depression [F41.9, F32.A] Obesity (BMI 30-39.9) [E66.9] 10/02/2015 Irritable colon [K58.9] 08/06/2016 Abdominal pain [R10.9] 10/02/2016 10/04/2016 Malnutrition of moderate degree (HCC) [E44.0] 10/03/2016 Nausea and vomiting [R11.2] 10/04/2016 10/04/2016 Diarrhea [R19.7] 10/04/2016 10/04/2016 Dilated bile duct [K83.8] 10/06/2016 S/P ERCP [Z98.890] 10/06/2016 Acquired hypothyroidism [E03.9] Levoscoliosis of thoracic spine [M41.84] Dysphagia [R13.10] Incisional hernia, without obstruction or gangr*06/06/2022 PONV (postoperative nausea and vomiting) [R11.2*06/06/2022 Obesity, Class I, BMI 30-34.9 [E66.811] 06/06/2022 S/P hernia repair [Z98.890, Z87.19] 06/07/2022 Abdominal wall abscess at site of surgical woun*06/27/2022 Leukocytosis [D72.829] 06/27/2022 07/02/2022 Cellulitis of left hand [L03.114] 05/18/2023 Hyponatremia [E87.1] 05/18/2023 05/20/2023 Kidney stone [N20.0] 02/09/2024 Encounter Status:Closed by XIOMY PATIÑO on 05/26/24 [facility] 04-05-2024 [facility] Telephone ([employer]) -------- TEVIN VILLAGOMEZ ([id number]) 1955 F Date Time Provider Department 04/05/24 LAURA MCMANUS During your visit today, we recorded the following information about you: Rukhsana Enriquez Ma 04/05/2024 9:06 AM Signed Patient states she is taking prescribed medication, and it is not helping as much as she would like. She states not even 50%. She would like to speak to a nurse. Estelle Mart, ASIM 04/05/2024 9:54 AM Signed Pt identified by name and . S: Tevin calls to report Vesicare prescribed on 03/25/24 is hardly working. 2 evenings ago she was up every 1/2 hour. States she has one more day of Keflex to treat UTI. Denies fever, chills, back pain, blood in urine, or foul smelling urine. States Dr. Mcmanus discussed sending in a daily antibiotic for her to take for 3 months to avoid getting UTI's. States her pharmacy never received the prescription. Asking what to do if Vesicare is not helping. B: MARIELA 02/29/24: IMPRESSION: Tevin Villagomez presents today for a diagnostic cystoscopy. Indication: recurrent UTI with history of bladder sling PLAN: -Repeat UA with micro in 2-4 weeks. If >3-5 RBCs/hpf she will needs CT urogram for microhematuria workup. I have discussed this with the patient. - For OAB, Trial vesicare- follow up virtual 4-6 weeks. Discuss SNM vs Botox. Pt leaning towards Botox. 02/01/24 visit: IMPRESSION: Tevin Villagomez is a 68 year old female with pelvic organ prolapse, urge urinary incontinence, stress urinary incontinence, recurrent UTI, vaginal atrophy. PLAN: 1. Recurrent pelvic organ prolapse, stage II a. We discussed treatment options including: observation, PFPT, pessary, or surgical options. We discussed surgical options including [place] tissue repair vs mesh augmented surgical repairs (sacrocolpopexy). Patient desires observation. She has hx of TVH, VVS, APR, sling with Dr. Sixto Knowles. Most bothersome complaint is recurrent UTI. If she desires surgery, recommend mesh augmented procedure due [place] and recurrent prolapse, sacrocolpopexy. 2. Mixed incontinence a. JUVENTINO: Discussed diagnosis and treatment options including: lifestyle and behavioral modifications, PFPT, anti-cholinergic and beta-3 agonists including side effects, and third line therapies such as PTNS, Intradetrusor Botox, and SNM. Has previously tried PFPT years ago. She would like to try lifestyle modifications first. Would like to address UTI initially. b. BEATRICE: Discussed diagnosis and treatment options including: observation, PFPT, incontinence pessaries/devices, urethral bulking, mesh midurethral sling, and non-mesh options including fascial sling or Elam. Patient would like to proceed with observation, has mesh sling in place. 3. Recurrent UTI a. We discussed treatment options including behavioral changes, vaginal estrogen, D-mannose, cranberry tablets, methenamine salts, and prophylactic antibiotics. Start vaginal estrogen nightly for 2 weeks then 3 weeks after that for a year. Will schedule cystoscopy given history of mesh sling procedure, large blood in urine, and UTIs. b. We discussed importance of dropping off urine specimen with our office so we can track bacteria and resistance patterns. She has previously been seeing her PCP for treatment. We do not have these records. 4. Vaginal atrophy A. Vaginal estrogen sent to pharmacy 5. Abnormal UA A. Large blood in urine, UA with micro sent. Schedule cystoscopy Follow up for cystoscopy, vaginal estrogen sent. Consider ppx antibiotics Laura Mcmanus MD 03/23/24: Culture >=100,000 CFU/ml Escherichia coli Abnormal Treated with Keflex. A: Not getting relief of OAB symptoms from taking Vesicare. Inquiring about prescription for 3 month prophylactic antibiotic. R: Informed Vesicare may take a month to see lessening of symptoms and several months for best results. Offered Virtual Visit Thursday with Dr. Mcmanus. States she does not know how to do VV and declined at this time. Next appt. is on 07/11/24. Informed message being forwarded to care team for review and to see how long she should continue to give Vesicare, and for 3 month daily antibiotic if appropriate. Please review/advise ASIM Bonilla Abigail, APRN.CLERK OF SCALES 04/05/2024 11:12 AM Signed It can up to 30 days to see the full effects of the OAB medication. UTIs can also compound the symptoms. I recommend that she complete the Keflex and continue the Vesicare.She can then follow up as recommended- it sounds like Botox was being considered as next step. I will ask Dr. Mcmanus about the plan for UTI prophylaxis. Marylu Lyman APRN.Charisse Solis RN 04/05/2024 12:26 PM Signed Called and spoke with pt. Verified by name and . Discussed with patient that OAB med can take 4-6 weeks for full affect and that a current UTI can m (more content not included)... Normal [facility] 03-30-2024 [facility] Telephone ([id number]) -------- TEVIN VILLAGOMEZ ([id number]) 1955 F Date Time Provider Department 03/30/24 LAURA MCMANUS [id number] During your visit today, we recorded the following information about you: Laura Mcmanus MD 03/30/2024 9:59 AM Signed Patient did pickler helper script sent for UTI. Has follow up with me tomorrow to discuss recurrent UTI virtual visit. Laura Mcmanus MD Allergies As of Date: 03/30/2024 (No Known Allergies) Date Reviewed: 02/29/2024 Reviewed by: Laura Ferguson - Fully Assessed Prescriptions as of 03/30/2024 - cephALEXin (KEFLEX) 500 mg capsule Take 1 capsule by mouth two times a day for 7 days. - solifenacin (VESICARE) 5 mg tablet Take 1 tablet by mouth once daily. - estradiol (ESTRACE) 0.01 % (0.1 mg/gram) vaginal cream Apply a pea size amount to the vagina nightly for two weeks then 3 weeks for 1 year - sertraline (ZOLOFT) 50 mg tablet Take 2 tablets by mouth daily at bedtime. - ibuprofen (MOTRIN) 600 mg tablet Take 1 tablet by mouth every 8 hours as needed for pain or fever (specify temp.). - dicyclomine (BENTYL) 20 mg tablet Take 20 mg by mouth twice daily. - sucralfate (CARAFATE) 1 gram tablet Take 1 g by mouth daily at bedtime. - denosumab (PROLIA) 60 mg/mL 60 mg by Injection - FOR ORTHO USE ONLY route once every 6 months. - meclizine (ANTIVERT) 12.5 mg tab Take 1 tablet by mouth twice daily as needed (dizziness). - esomeprazole (NEXIUM) 40 mg capsule Take 40 mg by mouth daily at 6 am. - levothyroxine (SYNTHROID) 25 mcg tablet Take 25 mcg by mouth once daily. - traMADol (ULTRAM) 50 mg tablet Take 50 mg by mouth every 8 hours as needed for pain. - SUMAtriptan (IMITREX) 100 mg tablet Take 1 tablet by mouth as needed. at onset of headache.May repeat after 2 hours. - LORazepam (ATIVAN) 1 mg tablet Take 1 tablet by mouth every 8 hours. - acetaminophen 325 mg-caffeine 40 mg-butalbital 50 mg (FIORICET) per tablet Take 1 tablet by mouth every 6 hours as needed. - promethazine (PHENERGAN) 25 mg tablet Take 1 tablet by mouth every 4 hours as needed for Nausea/Vomiting. Problem List As Of Date 03/30/2024 Noted Resolved GERD (gastroesophageal reflux disease) [K21.9] 04/21/2011 04/27/2011 Laparotomy, Excision of esophageal leiomyoma an*04/21/2011 01/30/2015 Atelectasis [J98.11] 04/22/2011 04/27/2011 Postoperative pain [G89.18] 04/22/2011 05/02/2011 Migraine [G43.909] 04/23/2011 03/13/2015 Stress hyperglycemia [R73.9] 04/23/2011 04/23/2011 Tachycardia [R00.0] 04/23/2011 04/23/2011 DVT prophylaxis [SBX7401] 04/23/2011 05/02/2011 Discharge Planning [Z71.89] 04/23/2011 05/02/2011 GERD (gastroesophageal reflux disease) [K21.9] 03/13/2015 Neck pain [M54.2] 05/21/2022 Motion sickness [T75.3XXA] 01/30/2015 Osteoarthritis [M19.90] Fibromyalgia [M79.7] Migraine without aura and without status migrai*03/13/2015 Gastroesophageal reflux disease with esophagiti*03/13/2015 Anxiety and depression [F41.9, F32.A] Obesity (BMI 30-39.9) [E66.9] 10/02/2015 Irritable colon [K58.9] 08/06/2016 Abdominal pain [R10.9] 10/02/2016 10/04/2016 Malnutrition of moderate degree (HCC) [E44.0] 10/03/2016 Nausea and vomiting [R11.2] 10/04/2016 10/04/2016 Diarrhea [R19.7] 10/04/2016 10/04/2016 Dilated bile duct [K83.8] 10/06/2016 S/P ERCP [Z98.890] 10/06/2016 Acquired hypothyroidism [E03.9] Levoscoliosis of thoracic spine [M41.84] Dysphagia [R13.10] Incisional hernia, without obstruction or gangr*06/06/2022 PONV (postoperative nausea and vomiting) [R11.2*06/06/2022 Obesity, Class I, BMI 30-34.9 [E66.811] 06/06/2022 S/P hernia repair [Z98.890, Z87.19] 06/07/2022 Abdominal wall abscess at site of surgical woun*06/27/2022 Leukocytosis [D72.829] 06/27/2022 07/02/2022 Cellulitis of left hand [L03.114] 05/18/2023 Hyponatremia [E87.1] 05/18/2023 05/20/2023 Kidney stone [N20.0] 02/09/2024 Encounter Status:Closed by LAURA MCMANUS on 03/30/24 [facility] 03-28-2024 CNPN Telephone (GYNMIS) -------- SHAUNNATEVIN MCLEAN ([id number]) 1955 F Date Time Provider Department 03/28/24 [facility] During your visit today, we recorded the following information about you: Laura Mcmanus MD 03/28/2024 3:58 PM Signed Called patient to let her know about UTI. Left voicemail as no answer. I also sent [employer] message. Laura Mcmanus MD Allergies As of Date: 03/28/2024 (No Known Allergies) Date Reviewed: 02/29/2024 Reviewed by: Laura Ferguson - Fully Assessed Prescriptions as of 03/28/2024 - cephALEXin (KEFLEX) 500 mg capsule Take 1 capsule by mouth two times a day for 7 days. - solifenacin (VESICARE) 5 mg tablet Take 1 tablet by mouth once daily. - estradiol (ESTRACE) 0.01 % (0.1 mg/gram) vaginal cream Apply a pea size amount to the vagina nightly for two weeks then 3 weeks for 1 year - sertraline (ZOLOFT) 50 mg tablet Take 2 tablets by mouth daily at bedtime. - ibuprofen (MOTRIN) 600 mg tablet Take 1 tablet by mouth every 8 hours as needed for pain or fever (specify temp.). - dicyclomine (BENTYL) 20 mg tablet Take 20 mg by mouth twice daily. - sucralfate (CARAFATE) 1 gram tablet Take 1 g by mouth daily at bedtime. - denosumab (PROLIA) 60 mg/mL 60 mg by Injection - FOR ORTHO USE ONLY route once every 6 months. - meclizine (ANTIVERT) 12.5 mg tab Take 1 tablet by mouth twice daily as needed (dizziness). - esomeprazole (NEXIUM) 40 mg capsule Take 40 mg by mouth daily at 6 am. - levothyroxine (SYNTHROID) 25 mcg tablet Take 25 mcg by mouth once daily. - traMADol (ULTRAM) 50 mg tablet Take 50 mg by mouth every 8 hours as needed for pain. - SUMAtriptan (IMITREX) 100 mg tablet Take 1 tablet by mouth as needed. at onset of headache.May repeat after 2 hours. - LORazepam (ATIVAN) 1 mg tablet Take 1 tablet by mouth every 8 hours. - acetaminophen 325 mg-caffeine 40 mg-butalbital 50 mg (FIORICET) per tablet Take 1 tablet by mouth every 6 hours as needed. - promethazine (PHENERGAN) 25 mg tablet Take 1 tablet by mouth every 4 hours as needed for Nausea/Vomiting. Problem List As Of Date 03/28/2024 Noted Resolved GERD (gastroesophageal reflux disease) [K21.9] 04/21/2011 04/27/2011 Laparotomy, Excision of esophageal leiomyoma an*04/21/2011 01/30/2015 Atelectasis [J98.11] 04/22/2011 04/27/2011 Postoperative pain [G89.18] 04/22/2011 05/02/2011 Migraine [G43.909] 04/23/2011 03/13/2015 Stress hyperglycemia [R73.9] 04/23/2011 04/23/2011 Tachycardia [R00.0] 04/23/2011 04/23/2011 DVT prophylaxis [CSF8329] 04/23/2011 05/02/2011 Discharge Planning [Z71.89] 04/23/2011 05/02/2011 GERD (gastroesophageal reflux disease) [K21.9] 03/13/2015 Neck pain [M54.2] 05/21/2022 Motion sickness [T75.3XXA] 01/30/2015 Osteoarthritis [M19.90] Fibromyalgia [M79.7] Migraine without aura and without status migrai*03/13/2015 Gastroesophageal reflux disease with esophagiti*03/13/2015 Anxiety and depression [F41.9, F32.A] Obesity (BMI 30-39.9) [E66.9] 10/02/2015 Irritable colon [K58.9] 08/06/2016 Abdominal pain [R10.9] 10/02/2016 10/04/2016 Malnutrition of moderate degree (HCC) [E44.0] 10/03/2016 Nausea and vomiting [R11.2] 10/04/2016 10/04/2016 Diarrhea [R19.7] 10/04/2016 10/04/2016 Dilated bile duct [K83.8] 10/06/2016 S/P ERCP [Z98.890] 10/06/2016 Acquired hypothyroidism [E03.9] Levoscoliosis of thoracic spine [M41.84] Dysphagia [R13.10] Incisional hernia, without obstruction or gangr*06/06/2022 PONV (postoperative nausea and vomiting) [R11.2*06/06/2022 Obesity, Class I, BMI 30-34.9 [E66.811] 06/06/2022 S/P hernia repair [Z98.890, Z87.19] 06/07/2022 Abdominal wall abscess at site of surgical woun*06/27/2022 Leukocytosis [D72.829] 06/27/2022 07/02/2022 Cellulitis of left hand [L03.114] 05/18/2023 Hyponatremia [E87.1] 05/18/2023 05/20/2023 Kidney stone [N20.0] 02/09/2024 Encounter Status:Closed by LAURA MCMANUS on 03/28/24 [facility] Telephone ([id number]) -------- TEVIN VILLAGOMEZ ([id number]) 1955 F Date Time Provider Department 03/28/24 LAURA MCMANUS [id number] During your visit today, we recorded the following information about you: Laura Mcmanus MD 03/28/2024 10:01 AM Signed UTI, keflex sent to pharmacy. Allergies As of Date: 03/28/2024 (No Known Allergies) Date Reviewed: 02/29/2024 Reviewed by: Laura Ferguson - Fully Assessed Order(s):cephALEXin (KEFLEX) 500 mg capsuleTake 1 capsule by mouth two times a day for 7 days.Disp: 14 capsuleRfl: 0 Prescriptions as of 03/28/2024 - cephALEXin (KEFLEX) 500 mg capsule Take 1 capsule by mouth two times a day for 7 days. - solifenacin (VESICARE) 5 mg tablet Take 1 tablet by mouth once daily. - estradiol (ESTRACE) 0.01 % (0.1 mg/gram) vaginal cream Apply a pea size amount to the vagina nightly for two weeks then 3 weeks for 1 year - sertraline (ZOLOFT) 50 mg tablet Take 2 tablets by mouth daily at bedtime. - ibuprofen (MOTRIN) 600 mg tablet Take 1 tablet by mouth every 8 hours as needed for pain or fever (specify temp.). - dicyclomine (BENTYL) 20 mg tablet Take 20 mg by mouth twice daily. - sucralfate (CARAFATE) 1 gram tablet Take 1 g by mouth daily at bedtime. - denosumab (PROLIA) 60 mg/mL 60 mg by Injection - FOR ORTHO USE ONLY route once every 6 months. - meclizine (ANTIVERT) 12.5 mg tab Take 1 tablet by mouth twice daily as needed (dizziness). - esomeprazole (NEXIUM) 40 mg capsule Take 40 mg by mouth daily at 6 am. - levothyroxine (SYNTHROID) 25 mcg tablet Take 25 mcg by mouth once daily. - traMADol (ULTRAM) 50 mg tablet Take 50 mg by mouth every 8 hours as needed for pain. - SUMAtriptan (IMITREX) 100 mg tablet Take 1 tablet by mouth as needed. at onset of headache.May repeat after 2 hours. - LORazepam (ATIVAN) 1 mg tablet Take 1 tablet by mouth every 8 hours. - acetaminophen 325 mg-caffeine 40 mg-butalbital 50 mg (FIORICET) per tablet Take 1 tablet by mouth every 6 hours as needed. - promethazine (PHENERGAN) 25 mg tablet Take 1 tablet by mouth every 4 hours as needed for Nausea/Vomiting. Problem List As Of Date 03/28/2024 Noted Resolved GERD (gastroesophageal reflux disease) [K21.9] 04/21/2011 04/27/2011 Laparotomy, Excision of esophageal leiomyoma an*04/21/2011 01/30/2015 Atelectasis [J98.11] 04/22/2011 04/27/2011 Postoperative pain [G89.18] 04/22/2011 05/02/2011 Migraine [G43.909] 04/23/2011 03/13/2015 Stress hyperglycemia [R73.9] 04/23/2011 04/23/2011 Tachycardia [R00.0] 04/23/2011 04/23/2011 DVT prophylaxis [ZFZ1335] 04/23/2011 05/02/2011 Discharge Planning [Z71.89] 04/23/2011 05/02/2011 GERD (gastroesophageal reflux disease) [K21.9] 03/13/2015 Neck pain [M54.2] 05/21/2022 Motion sickness [T75.3XXA] 01/30/2015 Osteoarthritis [M19.90] Fibromyalgia [M79.7] Migraine without aura and without status migrai*03/13/2015 Gastroesophageal reflux disease with esophagiti*03/13/2015 Anxiety and depression [F41.9, F32.A] Obesity (BMI 30-39.9) [E66.9] 10/02/2015 Irritable colon [K58.9] 08/06/2016 Abdominal pain [R10.9] 10/02/2016 10/04/2016 Malnutrition of moderate degree (HCC) [E44.0] 10/03/2016 Nausea and vomiting [R11.2] 10/04/2016 10/04/2016 Diarrhea [R19.7] 10/04/2016 10/04/2016 Dilated bile duct [K83.8] 10/06/2016 S/P ERCP [Z98.890] 10/06/2016 Acquired hypothyroidism [E03.9] Levoscoliosis of thoracic spine [M41.84] Dysphagia [R13.10] Incisional hernia, without obstruction or gangr*06/06/2022 PONV (postoperative nausea and vomiting) [R11.2*06/06/2022 Obesity, Class I, BMI 30-34.9 [E66.811] 06/06/2022 S/P hernia repair [Z98.890, Z87.19] 06/07/2022 Abdominal wall abscess at site of surgical woun*06/27/2022 Leukocytosis [D72.829] 06/27/2022 07/02/2022 Cellulitis of left hand [L03.114] 05/18/2023 Hyponatremia [E87.1] 05/18/2023 05/20/2023 Kidney stone [N20.0] 02/09/2024 Prescriptions ordered this encounter Disp Refills Start End CEPHALEXIN 500 MG CAPSULE 14 c* 0 03/28/2024 04/04/2024 Route: ORAL Sig: Take 1 capsule by mouth two times a day for 7 days. Encounter Status:Closed by LAURA MCMANUS on 03/28/24 [facility] Bacteria Ur Culton Bacteria identified Cx Nom (U) ORGANISM ID: 1 >=100,000 CFU/ml Escherichia coli ORGANISM ID: 1 (ESCHERICHIA COLI) ANTIBIOTIC INTERPRETATION ANN STATUS REFERENCE RANGE Ampicillin S <=4 F Susceptible <=8 , Intermediate >8 , Resistant >16 Cefazolin S 2 F Susceptible 0-16 , Intermediate <0 or >16 , Resistant >16 For uncomplicated urinary tract infections, cefazolin results can be used to predict susceptibility or resistance to cephalexin. Ceftriaxone S <=1 F Susceptible <=1 , Intermediate >1 , Resistant >=4 Cefepime S <=1 F Susceptible <=2 , Susceptible-Dose Dependent >2 , Resistant >=16 Ertapenem S <=0.25 F Susceptible <=0.5 , Intermediate >.5 , Resistant >1 Meropenem S <=0.5 F Susceptible <=1 , Intermediate >1 , Resistant >2 Aztreonam S <=2 F Susceptible <=4 , Intermediate >4 , Resistant >=16 Ampicillin/Sulbact S 4 F Piperacillin/Tazobac S <=2 F Gentamicin S <=2 F Susceptible <=4 , Intermediate >4 , Resistant >8 Trimeth sulfameth S <=0.5 F Ciprofloxacin S <=0.25 F Susceptible <0.5 , Intermediate >=.5 , Resistant >=1 Nitrofurantoin S <=16 F Susceptible <=32 , Intermediate >32 , Resistant >64 Abnormal [facility] Comment on above: Performed By: #### 6 30-4 ####[facility] LABORATORYCLIA [id number] [address] STATES OF [facility] Basic metabolic 2000 panelon 03-23-2024 Anion gap [Moles/Vol] 9 mmol/L Normal 8-15 [facility] Comment on above: Order Comment: Speci men Type: BLOOD SPECIMENOrdering Facility: [facility] Address: [address] [place] [address] Performed By: #### 2 4321-2 ####[facility] LABCLIA [id number] [place] [address] [place] Calcium [Mass/Vol] 9.6 mg/dL Normal 8.5-10.2 [facility] Comment on above: Order Comment: Speci men Type: BLOOD SPECIMENOrdering Facility: [facility] Address: [address] [place] [address] Performed By: #### 2 4321-2 ####[facility] LABCLIA [id number] [place] [address] [place] Chloride [Moles/Vol] 101 mmol/L Normal 98-107 [facility] Comment on above: Order Comment: Speci men Type: BLOOD SPECIMENOrdering Facility: [facility] Address: [address] [place] [address] Performed By: #### 2 4321-2 ####[facility] LABCLIA [id number] [place] [address] [place] CO2 [Moles/Vol] 29 mmol/L Normal 22-30 [facility] Comment on above: Order Comment: Speci men Type: BLOOD SPECIMENOrdering Facility: [facility] Address: [address] [place] [address] Performed By: #### 2 4321-2 ####[facility] LABCLIA [id number] [place] [address] [place] Creatinine [Mass/Vol] 0.91 mg/dL Normal 0.58-0.96 [facility] Comment on above: Order Comment: Speci men Type: BLOOD SPECIMENOrdering Facility: [facility] Address: [address] [place] [address] Performed By: #### 2 4321-2 ####[facility] LABCLIA [id number] [place] [address] [place] [facility] Creatinine and Glomerular filtration rate.predicted panel (S/P/Bld) 69 mL/min/1.73m??? Normal >=60 [facility] Comment on above: Order Comment: Speci men Type: BLOOD SPECIMENOrdering Facility: [facility] Address: [address] [place] [address] Result Comment: Juliann mated Glomerular Filtration Rate (eGFR) is calculated using the 2020 CKD-EPI creatinine equation. This equation utilizes serum creatinine, sex, and age as parameters. The creatinine assay has traceable calibration to isotope dilution-mass spectrometry. Refer to KDIGO guidelines for clinical interpretation. In patients with unstable renal function, e.g. those with acute kidney injury, the eGFR may not accurately reflect actual GFR. Performed By: #### 2 4321-2 ####[facility] LABCLIA [id number] [place] [address] [place] Glucose [Mass/Vol] 94 mg/dL Normal 74-99 [facility] Comment on above: Order Comment: Michael may Type: BLOOD SPECIMENOrdering Facility: [facility] Address: [address] [place] [address] Result Comment: The [place] Diabetes Association (ADA) provides guidance for cutoff values for fasting glucose and random glucose. The ADA defines fasting as no caloric intake for at least 8 hours. Fasting plasma glucose results between 100 to 125 mg/dL indicate increased risk for diabetes (prediabetes). Fasting plasma glucose results greater than or equal to 126 mg/dL meet the criteria for diagnosis of diabetes. In the absence of unequivocal hyperglycemia, results should be confirmed by repeat testing. In a patient with classic symptoms of hyperglycemia or hyperglycemic crisis, random plasma glucose results greater than or equal to 200 mg/dL meet the criteria for diagnosis of diabetes. Reference: Standards of Medical Care in Diabetes 2016, [place] Diabetes Association. Diabetes Care. 2016.39(Suppl 1). Performed By: #### 2 4321-2 ####[facility] LABCLIA [id number] [place] [address] [place] Potassium [Moles/Vol] 4.5 mmol/L Normal 3.7-5.1 [facility] Comment on above: Order Comment: Specchris may Type: BLOOD SPECIMENOrdering Facility: [facility] Address: [address] [place] [address] Performed By: #### 2 4321-2 ####[facility] LABCLIA [id number] [place] [address] [place] Sodium [Moles/Vol] 139 mmol/L Normal 136-144 [facility] Comment on above: Order Comment: Michael may Type: BLOOD SPECIMENOrdering Facility: [facility] Address: [address] [place] [address] Performed By: #### 2 4321-2 ####[facility] LABCLIA [id number] [place] [address] [place] Urea nitrogen [Mass/Vol] 17 mg/dL Normal 7-21 [facility] Comment on above: Order Comment: Michael may Type: BLOOD SPECIMENOrdering Facility: [facility] Address: [address] [place] [address] Performed By: #### 2 4321-2 ####[facility] LABCLIA [id number] [place] [address] [place] CNOVon 02-29-2024 CNOV Office Visit (BARRY ) -------- TEVIN VILLAGOMEZ ([id number]) 1955 F Date Time Provider Department 02/29/24 1:30 PM LAURA MCMANUS During your visit today, we recorded the following information about you: Laura Mcmanus MD 03/04/2024 1:03 PM Signed 02/29/2024 Tevin Villagomez presents today for a diagnostic cystoscopy. Indication: recurrent UTI with history of bladder sling UNIVERSAL PROTOCOL / SAFETY CHECKLIST Procedure to be Performed: cystoscopy Sign In: A Moment of CARE was completed. Personnel directly involved with the procedure wore the appropriate PPE (Personal Protective Equipment). Patient/Surrogate Stated/Verified: PATIENT VERIFIED(optional for EMERGENT procedures): Patient name, Date of , Relevant allergies, and The intended procedure Time Out Communication: Intended patient and procedure match the source documents. Consent documented and matches the intended procedure. Sign Out: SIGN OUT (optional for EMERGENT procedures): Post-procedure follow-up management communicated and Plan of Care Visit completed when applicable. PROCEDURE: The patient was taken to the procedure room, placed in lithotomy position and prepped in the usual fashion. Anesthesia: Intraurethral Lidocaine jelly 6 mL. Video-assisted cystourethroscopy was performed using a 30 degree, 70 degree cystoscope with saline infusion. Findings: Normal bladder mucosa. No evidence of inflammation, stones, neoplasia, bladder diverticulum, trabeculations, or other bladder abnormalities. The bladder trigone and ureteral orifices were seen and no abnormalities noted. Normal urethra without inflammation, diverticulum, or other abnormality. No bladder stones noted Complications: none Procedure Summary: Patient tolerated procedure well. Medications: None IMPRESSION: Tevin Villagomez presents today for a diagnostic cystoscopy. Indication: recurrent UTI with history of bladder sling PLAN: -Repeat UA with micro in 2-4 weeks. If >3-5 RBCs/hpf she will needs CT urogram for microhematuria workup. I have discussed this with the patient. - For OAB, Trial vesicare- follow up virtual 4-6 weeks. Discuss SNM vs Botox. Pt leaning towards Botox. MD Marty Flowers Amy P 02/29/2024 3:02 PM Addendum CYSTOSCOPY HOMEGOING INSTRUCTIONS You have undergone a cystoscopy procedure where a telescope was inserted into your bladder through your urethra. What to expect: You may have a burning sensation during urination and/or blood-tinged urine. These symptoms will normally subside within 24 hours and with increased fluid intake. When to call the physician?s office: If you have a fever of 100.4 degrees Fahrenheit or higher If you are unable to urinate If your urine becomes bloody and does not clear with increased fluid intake. If after 24 hours, you have signs of a urinary tract infection. UROGYNECOLOGY PHYSICIAN CONTACT INFORMATION During business hours, these numbers connect to your doctor?s office. During the evening and weekends, these numbers will connect you to the answering service to speak with the doctor regional climate change analyst. Dr. King Dr. Yee Dr. Boucher Dr. Stone Dr. Patterson Dr. Hanks Dr. Knowles Dr. Rojo Dr. Mcmanus [place], 330) [phone] Karen Lyman, CLERK OF SCALES Polly Terry, SHAHZAD Murillo, CLERK OF SCALES Haydee Webb, SHAHZAD Ferguson, CLERK OF SCALES Rupa Mcpherson, CLERK OF SCALES Please DO NOT use MyChart for procedure concerns. Referring Provider: LAURA MCMANUS [[id number]] Allergies As of Date: 02/29/2024 (No Known Allergies) Date Reviewed: 02/29/2024 Reviewed by: Laura Ferguson - Fully Assessed Primary Visit Diagnosis:Microscopic hematuria [R31.29] Other Visit Diagnoses:Dysuria [R30.0] Abnormal urinalysis [R82.90] Recurrent UTI [N39.0] Hematuria, unspecified type [R31.9] Order(s):CYSTOSCOPY [facility] [[id number]] Order #: [id number] UA DIP B/O [[id number]] Order #: [id number] [] sulfamethoxazole-trimeth oprim (BACTRIM DS) 800-160 mg per tabletTake 1 tablet by mouth two times a day for 3 days.Disp: 6 tabletRfl: 0 solifenacin (VESICARE) 5 mg tabletTake 1 tablet by mouth once daily.Disp: 30 tabletRfl: 1 URINE CULTURE [SQURCUL] Order #: [id number] STANDING CT UROGRAM WO/W IVCON [[id number]] Order #: [id number] FUTURE iv contrast (will be provided with radiology test)CT Urogram WO/W Inject, intravenously, once for 1 dose.No IV access, insert saline lock prior to the beginning of sedation, infusion, injection of imaging exam. Discontinue saline lock post exam. If Pt. has a central line or IVAD, may access for administration according to line specific nursing protocol. Once exam is complete flush line and de-access according to line specific nursing protocol in the CT contrast ad (more content not included)... Normal [facility] UA DIP B/OOrdered By: Laura art on 02-29-2024 Bilirubin Ql (U) Negative Neg [facility] Color/Appearance clear yellow comment: [facility] Glucose Ql (U) Negative Neg mg/dL [facility] Hemoglobin Ql (U) sm Neg [facility] Ketones Ql (U) Negative Neg [facility] Leukocytes Negative Neg [facility] Nitrite Ql (U) Negative Neg [facility] pH (U) 5.0 [pH] 4.5 - 8.0 [facility] Protein.monoclonal (U) [Mass/Vol] Negative Neg mg/dL [facility] Specific [place], Ur 1.015 1.005 - 1.030 [facility] Urobilinogen, Urine Negative Normal (<1.1) EU [facility] 02-17-2024 FLORINDA Telephone ([facility]) -------- SHAUNNATEVIN MCLEAN ([id number]) 1955 F Date Time Provider Department 02/17/24 LAURA MCMANUS During your visit today, we recorded the following information about you: Evon Gonzalez 02/17/2024 3:42 PM Signed Called patient back after she left a VM. She stated she passed a kidney stone a few days ago but since then she has felt the urge to urinate any time she moves. She is schedule for a cysto on 02/28, but wanted to make a sooner appt to discuss. I informed the patient that Dr. Mcmanus does not have sooner appointments, but that we could get her in sooner to see a SALES SUPPORT COORDINATOR to discuss her concerns. Patient declined seeing SALES SUPPORT COORDINATOR and will wait until 02/[address] Angulo since she established care with her already. Allergies As of Date: 02/17/2024 (No Known Allergies) Date Reviewed: 02/09/2024 Reviewed by: Susana Irvin, RN - Fully Assessed Prescriptions as of 02/17/2024 - estradiol (ESTRACE) 0.01 % (0.1 mg/gram) vaginal cream Apply a pea size amount to the vagina nightly for two weeks then 3 weeks for 1 year - sertraline (ZOLOFT) 50 mg tablet Take 2 tablets by mouth daily at bedtime. - ibuprofen (MOTRIN) 600 mg tablet Take 1 tablet by mouth every 8 hours as needed for pain or fever (specify temp.). - dicyclomine (BENTYL) 20 mg tablet Take 20 mg by mouth twice daily. - sucralfate (CARAFATE) 1 gram tablet Take 1 g by mouth daily at bedtime. - denosumab (PROLIA) 60 mg/mL 60 mg by Injection - FOR ORTHO USE ONLY route once every 6 months. - meclizine (ANTIVERT) 12.5 mg tab Take 1 tablet by mouth twice daily as needed (dizziness). - esomeprazole (NEXIUM) 40 mg capsule Take 40 mg by mouth daily at 6 am. - levothyroxine (SYNTHROID) 25 mcg tablet Take 25 mcg by mouth once daily. - traMADol (ULTRAM) 50 mg tablet Take 50 mg by mouth every 8 hours as needed for pain. - SUMAtriptan (IMITREX) 100 mg tablet Take 1 tablet by mouth as needed. at onset of headache.May repeat after 2 hours. - LORazepam (ATIVAN) 1 mg tablet Take 1 tablet by mouth every 8 hours. - acetaminophen 325 mg-caffeine 40 mg-butalbital 50 mg (FIORICET) per tablet Take 1 tablet by mouth every 6 hours as needed. - promethazine (PHENERGAN) 25 mg tablet Take 1 tablet by mouth every 4 hours as needed for Nausea/Vomiting. Problem List As Of Date 02/17/2024 Noted Resolved GERD (gastroesophageal reflux disease) [K21.9] 04/21/2011 04/27/2011 Laparotomy, Excision of esophageal leiomyoma an*04/21/2011 01/30/2015 Atelectasis [J98.11] 04/22/2011 04/27/2011 Postoperative pain [G89.18] 04/22/2011 05/02/2011 Migraine [G43.909] 04/23/2011 03/13/2015 Stress hyperglycemia [R73.9] 04/23/2011 04/23/2011 Tachycardia [R00.0] 04/23/2011 04/23/2011 DVT prophylaxis [[id number]] 04/23/2011 05/02/2011 Discharge Planning [Z71.89] 04/23/2011 05/02/2011 GERD (gastroesophageal reflux disease) [K21.9] 03/13/2015 Neck pain [M54.2] 05/21/2022 Motion sickness [T75.3XXA] 01/30/2015 Osteoarthritis [M19.90] Fibromyalgia [M79.7] Migraine without aura and without status migrai*03/13/2015 Gastroesophageal reflux disease with esophagiti*03/13/2015 Anxiety and depression [F41.9, F32.A] Obesity (BMI 30-39.9) [E66.9] 10/02/2015 Irritable colon [K58.9] 08/06/2016 Abdominal pain [R10.9] 10/02/2016 10/04/2016 Malnutrition of moderate degree (HCC) [E44.0] 10/03/2016 Nausea and vomiting [R11.2] 10/04/2016 10/04/2016 Diarrhea [R19.7] 10/04/2016 10/04/2016 Dilated bile duct [K83.8] 10/06/2016 S/P ERCP [Z98.890] 10/06/2016 Acquired hypothyroidism [E03.9] Levoscoliosis of thoracic spine [M41.84] Dysphagia [R13.10] Incisional hernia, without obstruction or gangr*06/06/2022 PONV (postoperative nausea and vomiting) [R11.2*06/06/2022 Obesity, Class I, BMI 30-34.9 [E66.9] 06/06/2022 S/P hernia repair [Z98.890, Z87.19] 06/07/2022 Abdominal wall abscess at site of surgical woun*06/27/2022 Leukocytosis [D72.829] 06/27/2022 07/02/2022 Cellulitis of left hand [L03.114] 05/18/2023 Hyponatremia [E87.1] 05/18/2023 05/20/2023 Kidney stone [N20.0] 02/09/2024 Encounter Status:Closed by EVON GONZALEZ on 02/17/24 Normal [facility] CBC panel Auto (Bld)on 02-08 Erythrocyte distribution width (RBC) [Ratio] 14.1 % Normal 11.5-15.0 [facility] Comment on above: Order Comment: Speci men Type: BLOOD SPECIMENOrdering Facility: [facility] Address: [address] [place] [address] Performed By: #### 5 8410-2 ####[facility] LABCLIA [id number] [place] [id number] [place] Hematocrit (Bld) [Volume fraction] 41.6 % Normal 36.0-46.0 [facility] Comment on above: Order Comment: Speci men Type: BLOOD SPECIMENOrdering Facility: [facility] Address: [address] [place] [address] Performed By: #### 5 8410-2 ####[facility] LABCLIA [id number] [place] [address] [place] Hemoglobin (Bld) [Mass/Vol] 13.4 g/dL Normal 11.5-15.5 [facility] Comment on above: Order Comment: Speci men Type: BLOOD SPECIMENOrdering Facility: [facility] Address: [address] [place] [address] Performed By: #### 5 8410-2 ####[facility] LABCLIA [id number] [place] [address] [place] [facility] MCH (RBC) [Entitic mass] 28.8 pg Normal 26.0-34.0 [facility] Comment on above: Order Comment: Speci men Type: BLOOD SPECIMENOrdering Facility: [facility] Address: [address] [place] [address] Performed By: #### 5 8410-2 ####[facility] LABCLIA [id number] [place] [address] [place] MCHC (RBC) [Mass/Vol] 32.2 g/dL Normal 30.5-36.0 [facility] Comment on above: Order Comment: Speci men Type: BLOOD SPECIMENOrdering Facility: [facility] Address: [address] [place] [address] Performed By: #### 5 8410-2 ####[facility] LABCLIA [id number] [place] [address] [facility] MCV (RBC) [Entitic vol] 89.5 fL Normal 80.0-100.0 [facility] Comment on above: Order Comment: Speci men Type: BLOOD SPECIMENOrdering Facility: [facility] Address: [address] [place] [address] Performed By: #### 5 8410-2 ####[facility] LABCLIA [id number] [place] [address] [facility] Platelet mean volume (Bld) [Entitic vol] 9.5 fL Normal 9.0-12.7 [facility] Comment on above: Order Comment: Speci men Type: BLOOD SPECIMENOrdering Facility: [facility] Address: [address] [place] [address] Performed By: #### 5 8410-2 ####[facility] LABCLIA [id number] [place] [address] [facility] Platelets (Bld) [#/Vol] 226 10*3/uL Normal 150-400 [facility] Comment on above: Order Comment: Speci men Type: BLOOD SPECIMENOrdering Facility: [facility] Address: [address] [place] [address] Performed By: #### 5 8410-2 ####[facility] LABCLIA [id number] [place] [address] [facility] RBC (Bld) [#/Vol] 4.65 10*6/uL Normal 3.90-5.20 [facility] Comment on above: Order Comment: Speci men Type: BLOOD SPECIMENOrdering Facility: [facility] Address: [address] [place] [address] Performed By: #### 5 8410-2 ####[facility] LABCLIA [id number] [place] [address] [facility] WBC (Bld) [#/Vol] 11.25 10*3/uL High 3.70-11.00 [facility] Comment on above: Order Comment: Speci men Type: BLOOD SPECIMENOrdering Facility: [facility] Address: [address] [place] [address] Performed By: #### 5 8410-2 ####[facility] LABCLIA [id number] [place] [address] [facility] [address] FLANK WO IVCONon 02-09-[address] FLANK WO IVCON * * *Final Report* * * DATE OF EXAM: Feb 09 2024 8:46PM [facility] 0529 - CT FLANK WO IVCON / PROCEDURE REASON: Flank pain, kidney stone suspected * * * * Physician Interpretation * * * * EXAMINATION: CT ABDOMEN AND PELVIS WITHOUT IV CONTRAST (Renal stone protocol) CLINICAL HISTORY: Unspecified flank pain. Hematuria. TECHNIQUE: Non-contrast imaging of the abdomen and pelvis was performed through the urinary tract. Study performed without intravenous or oral contrast to evaluate for urinary tract calculus. MQ: CTAbdPelvF_1 Contrast: IV contrast: None Oral contrast: None CT Radiation dose: Integrated dose-length product (DLP) for this visit = 374.35 mGy*cm. CT Dose Reduction Employed: Automated exposure control(AEC) and iterative recon COMPARISON: 01/06/2023 RESULT: Limitations: Unenhanced imaging is limited for the evaluation of some renal and other intra-abdominal and pelvic pathology. Urinary Tract: Right kidney and ureter: No calculus. No hydronephrosis. No finding to suggest cyst or mass in the unenhanced kidney. Left kidney and ureter: There is mild left-sided hydronephrosis and hydroureter. Calculus measuring 6 mm appears to lie within the bladder lumen and may represent a passing or recently passed calculus. Distal amount obstructing punctate calculus is noted in the left kidney. Bladder: No calculus. Abdomen and Pelvis: Liver: Unremarkable. Biliary: Redemonstration of pneumobilia. The gallbladder surgically absent. Spleen: No splenomegaly. Pancreas: Unremarkable. Adrenals: Normal. GI Tract: No bowel dilation. Normal appendix. Lymph Nodes: No lymphadenopathy. Mesentery/peritoneum: No ascites. Vasculature: Mild atherosclerosis without aneurysm. Pelvis: No mass or ascites. Bones and Soft Tissues: No acute abnormality. Lower thorax: Unremarkable. Localizer images: No additional findings. IMPRESSION: There is a 6 mm calculus that appears to lie within the bladder lumen which may represent a passing or passed left renal calculus. There is residual left-sided hydronephrosis and hydroureter. Personal Insurance Advisor: [facility] Transcribe Date/Time: Feb 09 2024 9:20P Dictated by : SABINO KAMARA MD This examination was interpreted and the report reviewed and electronically signed by: SABINO KAMARA MD on Feb 09 2024 9:29PM EST [id number] Normal [facility] Comprehensive metabolic 2000 panelon 02-09-2024 Albumin [Mass/Vol] 4.3 g/dL Normal 3.9-4.9 [facility] Comment on above: Order Comment: Speci men Type: BLOOD SPECIMENOrdering Facility: [facility] Address: [address] [place] [address] Performed By: #### 3 040-3, 43077-6 ####[facility] [place] LABCLIA [id number] [place] [address] [place] ALP [Catalytic activity/Vol] 166 U/L High 34-123 [facility] Comment on above: Order Comment: Speci men Type: BLOOD SPECIMENOrdering Facility: [facility] Address: [address] [place] [address] Performed By: #### 3 040-3, 60538-4 ####[facility] [place] LABCLIA [id number] [place] [address] [place] ALT With P-5'-P [Catalytic activity/Vol] 13 U/L Normal 7-38 [facility] Comment on above: Order Comment: Speci men Type: BLOOD SPECIMENOrdering Facility: [facility] Address: [address] [place] [address] Performed By: #### 3 040-3, 55887-9 ####[facility] [place] LABCLIA [id number] [facility] [place] [address] [place] Anion gap [Moles/Vol] 15 mmol/L Normal 8-15 [facility] Comment on above: Order Comment: Speci men Type: BLOOD SPECIMENOrdering Facility: [facility] Address: [address] [place] [address] Performed By: #### 3 040-3, 60340-8 ####[facility] [place] LABCLIA [id number] [facility] [place] [address] [place] AST With P-5'-P [Catalytic activity/Vol] 21 U/L Normal 13-35 [facility] Comment on above: Order Comment: Speci men Type: BLOOD SPECIMENOrdering Facility: [facility] Address: [address] [place] [address] Performed By: #### 3 040-3, 48718-4 ####[facility] [place] LABCLIA [id number] [place] [address] [place] Bilirubin [Mass/Vol] 0.2 mg/dL Normal 0.2-1.3 [facility] Comment on above: Order Comment: Speci men Type: BLOOD SPECIMENOrdering Facility: [facility] Address: [address] [place] [id number] Performed By: #### 3 040-3, ####[facility] [place] LABCLIA [id number] [place] [address] [place] Calcium [Mass/Vol] 9.5 mg/dL Normal 8.5-10.2 [facility] Comment on above: Order Comment: Speci men Type: BLOOD SPECIMENOrdering Facility: [facility] Address: [address] [place], [place] [address] Performed By: #### 3 -3, ####[facility] [place] LABCLIA [id number] [place] [address] [place] Chloride [Moles/Vol] 99 mmol/L Normal 98-107 [facility] Comment on above: Order Comment: Speci men Type: BLOOD SPECIMENOrdering Facility: [facility] Address: [address] [place], [place] [address] Performed By: #### 3 040-3, 46395-5 ####[facility] [place] LABCLIA [id number] [place] [address] [place] CO2 [Moles/Vol] 26 mmol/L Normal 22-30 [facility] Comment on above: Order Comment: Speci men Type: BLOOD SPECIMENOrdering Facility: [facility] Address: [address] [place], [place] [address] Performed By: #### 3 040-3, 42847-3 ####[facility] [place] LABCLIA [id number] [place] [address] [place] Creatinine [Mass/Vol] 0.87 mg/dL Normal 0.58-0.96 [facility] Comment on above: Order Comment: Speci men Type: BLOOD SPECIMENOrdering Facility: [facility] Address: [address] [place], [place] [address] Performed By: #### 3 040-3, 68285-4 ####[facility] [employer] LABCLIA [id number] [place] [address] [place] Creatinine and Glomerular filtration rate.predicted panel (S/P/Bld) 73 mL/min/1.73m??? Normal >=60 [facility] Comment on above: Order Comment: Michael lalo Type: BLOOD SPECIMENOrdering Facility: [facility] Address: [address] [place] [address] Result Comment: Juliann mated Glomerular Filtration Rate (eGFR) is calculated using the 2020 CKD-EPI creatinine equation. This equation utilizes serum creatinine, sex, and age as parameters. The creatinine assay has traceable calibration to isotope dilution-mass spectrometry. Refer to KDIGO guidelines for clinical interpretation. In patients with unstable renal function, e.g. those with acute kidney injury, the eGFR may not accurately reflect actual GFR. Performed By: #### 3 040-3, 77709-4 ####[facility] [employer] LABCLIA [id number] [place] [address] [place] Glucose [Mass/Vol] 121 mg/dL High 74-99 [facility] Comment on above: Order Comment: Michael may Type: BLOOD SPECIMENOrdering Facility: [facility] Address: [address] [place] [address] Result Comment: The [place] Diabetes Association (ADA) provides guidance for cutoff values for fasting glucose and random glucose. The ADA defines fasting as no caloric intake for at least 8 hours. Fasting plasma glucose results between 100 to 125 mg/dL indicate increased risk for diabetes (prediabetes). Fasting plasma glucose results greater than or equal to 126 mg/dL meet the criteria for diagnosis of diabetes. In the absence of unequivocal hyperglycemia, results should be confirmed by repeat testing. In a patient with classic symptoms of hyperglycemia or hyperglycemic crisis, random plasma glucose results greater than or equal to 200 mg/dL meet the criteria for diagnosis of diabetes. Reference: Standards of Medical Care in Diabetes 2016, [place] [employer] Association. Diabetes Care. 2016.39(Suppl 1). Performed By: #### 3 040-3, 75009-1 ####[facility] [employer] LABCLIA [id number] [place] [address] [place] Potassium [Moles/Vol] 3.6 mmol/L Low 3.7-5.1 [facility] Comment on above: Order Comment: Speci men Type: BLOOD SPECIMENOrdering Facility: [facility] Address: [address] [place] [address] Performed By: #### 3 040-3, 33243-2 ####[facility] [place] LABCLIA [id number] [facility] [place] [address] [place] [facility] Protein [Mass/Vol] 7.7 g/dL Normal 6.3-8.0 [facility] Comment on above: Order Comment: Speci men Type: BLOOD SPECIMENOrdering Facility: [facility] Address: [address] [place] [address] Performed By: #### 3 040-3, 77889-2 ####[facility] [place] LABCLIA [id number] [place] [address] [facility] Sodium [Moles/Vol] 140 mmol/L Normal 136-144 [facility] Comment on above: Order Comment: Speci men Type: BLOOD SPECIMENOrdering Facility: [facility] Address: [address] [place] [address] Performed By: #### 3 040-3, 72107-9 ####[facility] [place] LABCLIA [id number] [place] [address] [place] [facility] Urea nitrogen [Mass/Vol] 14 mg/dL Normal 7-21 [facility] Comment on above: Order Comment: Speci men Type: BLOOD SPECIMENOrdering Facility: [facility] Address: [address] [place] [address] Performed By: #### 3 040-3, 44654-3 ####[facility] [place] LABCLIA [id number] [place] [address] [facility] ED NOTEon 02-09-2024 ED NOTE HNO ID: [id number] Author: KOMAL CUNNINGHAM, RN Service: Emergency Medicine Author Type: Registered Nurse Type: ED Notes Filed: 02/09/2024 22:56 Note Text: Patient discharge instructions given to patient. Patient educated on discharge instructions and prescription. Patient denied having questions at this time regarding discharge instructions. Patient discharged home at this time. [facility] ED NOTE HNO ID: [id number] Author: KOMAL CUNNINGHAM RN Service: Emergency Medicine Author Type: Registered Nurse Type: ED Notes Filed: 02/09/2024 22:23 Note Text: Physician at bedside. [facility] ED NOTE HNO ID: [id number] Author: KOMAL CUNNINGHAM RN Service: Emergency Medicine Author Type: Registered Nurse Type: ED Notes Filed: 02/09/2024 19:56 Note Text: Patient informed about the name of the medication(s), what the medication(s) is(are) for, and what to expect with/from med administration. Patient given opportunity to ask questions.Medication(s) include: Zofran [facility] ED NOTE HNO ID: [id number] Author: KOMAL CUNNINGHAM RN Service: Emergency Medicine Author Type: Registered Nurse Type: ED Notes Filed: 02/09/2024 19:45 Note Text: Patient informed about the name of the medication(s), what the medication(s) is(are) for, and what to expect with/from med administration. Patient given opportunity to ask questions. Medication(s) include: Toradol, NaCl. [facility] ED NOTE HNO ID: [id number] Author: KOMAL CUNNINGHAM RN Service: Emergency Medicine Author Type: Registered Nurse Type: ED Notes Filed: 02/09/2024 19:25 Note Text: Change of shift report received from Susana Mcallister RN. I assumed patient care at this time. [facility] ED NOTE HNO ID: [id number] Author: SUSANA IRVIN RN Service: ? Author Type: Registered Nurse Type: ED Notes Filed: 02/09/2024 18:57 Note Text: Pt comes to ER stating I think I have a kidney stone. Pt has L flank pain 10/10 pain that radiates to LLQ. N/v for 3 hours. She is AANDOx3, vss. Will continue to monitor. [facility] ED PROV NOTEon 02-09-2024 ED PROV NOTE HNO ID: [id number] Author: CESAR BARNEY MD Service: Emergency Medicine Author Type: Physician Type: ED Provider Notes Filed: 02/09/2024 22:38 Note Text: ED Provider Note Patient Name: Tevin Villagomez : 1955 SERVICE DATE: 02/09/24 History Patient presents with: Flank Pain Abdominal Pain Nausea AND Vomiting With past history of kidney stones, presents to the emergency department with her family, for concerns over nausea, vomiting, abdominal pain, and thinking she has a kidney stone. Patient just finished a rest of Cipro a week and a half ago, for recurrent urinary tract infections as well. Patient saw her [employer] INSTALLER this week, and was informed she also has a prolapsed bladder. Since Thursday patient's had vomiting, and intermittent episodes of diarrhea with left flank and left lower back pain. No hematuria. Vomiting Severity: Moderate Duration: 2 days Timing: Intermittent Progression: Worsening Chronicity: Recurrent Recent urination: Normal Relieved by: Nothing Associated symptoms: abdominal pain and diarrhea Risk factors: no diabetes, no sick contacts and no suspect food intake PAST MEDICAL HISTORY No date: Acquired hypothyroidism No date: Anxiety No date: Cystourethrocele No date: Dysphagia No date: Fibromyalgia No date: GERD (gastroesophageal reflux disease) Comment: s/p surgery now controlled with zantac, Dr. Ojeda No date: Hiatal hernia 04/22/2011: Leiomyoma Comment: ESOPHAGUS, excised 04/22/2011 No date: Levoscoliosis of thoracic spine No date: Migraine No date: Neck pain Comment: cervicle fusion 03/05 No date: Osteoarthritis Comment: ? RA Dr Lindsey mtx and [place] No date: Vaginal vault prolapse after hysterectomy PAST SURGICAL HISTORY 2016: ARTHROSCOPY KNEE DIAGNOSTIC W/WO SYNOVIAL BX SPX; Right Comment: meniscus repair No date: BLADDER SURGERY HX 1991: BREAST AUGMENTATION WITH IMPLANT Comment: Breast augmentation : BUNIONECTOMY, LAPIDUS-TYPE Comment: Bilat. 02/2016: EGD Comment: Dr. Ojeda 01/2022: EGD - BALLOON DILATION, GUIDE 11/2013: ESOPHAGOGASTRODUODENOSCO PY TRANSORAL DIAGNOSTIC Comment: EGD Dr. Ojeda : EXT HYSTERECTOMY,W/PARTIAL VAGINECTO Comment: benign causes 06/28/2022: I AND D ABSCESS, COMPLICATED; N/A Comment: abdominal wound abscess No date: KIDNEY STONE SURGERY HX Comment: Ureteral stents 02/2014: PALOMO W/O FACETEC FORAMOT/DSC 1/2 VRT SGM CRV Comment: cervicle fusion 04/2011: LAPAROSCOPY SURG CHOLECYSTECTOMY Comment: Cholecystectomy, lap 2013: MAMMOTOME BIOPSY RIGHT 2016: PAST SURGICAL HISTORY OF Comment: MOHS for basal cell on her back 03/2016: PAST SURGICAL HISTORY OF Comment: R TKA 06/28/2022: PAST SURGICAL HISTORY OF Comment: Incision and drainage of abdominal wound infection/abscess. Dr. Glynn 06/06/2022: REPAIR INCISIONAL HERNIA,REDUCIBLE Comment: with mesh. Dr. Perez 04/22/2011: RPR PARAESOPH HIATAL HERNIA W/LAPT W/O MESH Comment: Laparotomy, Excision of esophageal leiomyoma and repair of esophageal wall, Esophagogastroscopy, Aditi fundoplication for Short esophagus, Type I hiatal hernia and Esophageal leiomyoma A CHILD: TONSILLECTOMY PRIMARY/SECONDARY Comment: Tonsillectomy FAMILY HISTORY Problem Relation Age of Onset Cancer Mother Lung at 72 y/o Psychiatry Mother nervous breakdown, had shock therapy Cancer Father Lung at 76 y/o Psychiatry Father had nervous breakdown, had shock therapy other (no colon cancer) Father other (no breast cancer) Father other (no diabetes) Father other (no cad) Father Psychiatry Brother Breast Cancer Daughter dx age 37 Social History Tobacco Use Smoking status: Never Smokeless tobacco: Never Vaping Use Vaping status: Never Used Substance and Sexual Activity Alcohol use: Yes Comment: rare 1x/year Drug use: No Sexual activity: Not on file ALLERGIES No Known Allergies Review of Systems Gastrointestinal: Positive for abdominal pain, diarrhea and vomiting. All other systems reviewed and are negative. Physical Exam Vitals [02/09/24 1858] BP Pulse Temp Temp src Resp SpO2 Weight Height 167/72 62 36.9 ?C (98.4 ?F) Temporal 20 99 % 65.8 kg (145 lb) -- Physical Exam Vitals and nursing note reviewed. Constitutional: General: She is not in acute distress. Appearance: Normal appearance. She is not ill-appearing or toxic-appearing. HENT: Head: Normocephalic and atraumatic. Mouth/Throat: Mouth: Mucous membranes are moist. Pharynx: Oropharynx is clear. No pharyngeal swelling or oropharyngeal exudate. Eyes: General: Right eye: No discharge. Left eye: No discharge. Cardiovascular: Rate and Rhythm: Normal rate and regular rhythm. Heart sounds: Normal heart sounds. No murmur heard. Pulmonary: Effort: No respiratory distress. Breath sounds: No wheezing. Abdominal: General: Bowel sounds are normal. Palpations: (more content not included)... Normal [facility] Lipase SerPl-cCncon 02-09-20 24 Lipase [Catalytic activity/Vol] 21 U/L Normal 16-61 [facility] Comment on above: Order Comment: Speci men Type: BLOOD SPECIMENOrdering Facility: [facility] Address: [address] [place] [address] Performed By: #### 3 040-3, 04762-9 ####[facility] LABCLIA [id number] [place] [address] [place] Urinalysis complete pnl Uron 02-09-2024 Urinalysis complete panel (U) COLOR: Yellow CLARITY: Cloudy GLUCOSE, URINE: Negative BILIRUBIN, URINE: Negative KETONES, URINE: Negative SPECIFIC GRAVITY, UR: >=1.030 HEMOGLOBIN/BLOOD, UR: 3+ PH, URINE: 6.0 PROTEIN, URINE: 1+ UROBILINOGEN: 0.2 EU/dL NITRITES: Negative LEUKEST: Negative WBC, URINE: 11-25 /HPF RBC, URINE: >25 /HPF SQUAMOUS EPITHELIAL CELLS: Few CALCIUM OXALATE CRYSTALS (UA): Few CULTURE, URINE: No growth (<1,000 CFU/ml) Abnormal [facility] Comment on above: Order Comment: Speci men Type: URINE SPECIMENOrdering Facility: [facility] Address: [address] [place] [address] Performed By: #### 2 4356-8 ####[facility] LABCLIA [id number] [place] [id number] [place] [facility] [id number] [place] Bacteria Ur Culton Bacteria identified Cx Nom (U) CULTURE, URINE: <10,000 CFU/ml Normal Urogenital Sherry Normal [facility] Comment on above: Performed By: #### 6 30-4 ####[facility] LABORATORYCLIA [id number] [place] [address] [place] CNOVon 02-01-2024 CNOV Office Visit ([facility] ) -------- TEVIN VILLAGOMEZ ([id number]) 1955 F Date Time Provider Department 02/01/24 9:30 AM LAURA MCMANUS During your visit today, we recorded the following information about you: Pulse Blood pressure Weight 82/minute 131/77 68.5 kg Laura Mcmanus MD 02/01/2024 11:42 AM Signed Female Pelvic Medicine AND Reconstructive Surgery Consult CHIEF COMPLAINT: Tevin Villagomez is a 68 year old female who presents for consultation requested by Self Referred for an opinion regarding Mixed urge and stress incontinence, Pelvic Organ Prolapse , Recurrent UTI. HISTORY OF PRESENT ILLNESS: S/P prolapse repair with Dr. Sixto Knowles. Feels recurrent bulge x6 months. Has urinary frequency and feeling of incomplete emptying. Sometimes she feels unable to void if she needs to have a BM, will go back to the restroom later to void. Occasional mixed urinary incontinence, Stress=urge. Recurrent UTIs- reports 12 UTIs in the last year. States she goes to PCP for UCx AND treatment. Voiding every 1 hour, every 30 minutes, Leakage sometimes Incontinence with bending PCP Cande Ely, been treating her for UTI. 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 She has a previous history of an abnormal mammogram with benign breast biopsy. LMP: No LMP recorded. Patient has had a hysterectomy.; Menopause no: Menstrual history: Menarche: 12; OB History T2 L0 SAB0 IAB0 Ectopic0 Multiple0 Live Births2 Comment: Menarche 12 S/P Lsc hysterectomy 1984 Deliveries: History of third or fourth degree laceration: had a tear with 2nd delivery, unsure of degree Weight of largest baby: [id number] Sexual function Sexually active: Sexual dysfunction: pain PFDI-20 Do you: Usually experience pressure in the lower abdomen? No (0) Usually experience heaviness or dullness in the pelvic area? No (0) Usually have a bulge or something falling out that you can see or feel in your vaginal area? No (0) Ever have to push on the vagina or around the rectum to have or complete a bowel movement? No (0) Usually experience a feeling of incomplete bladder emptying? Yes, quite a bit bothersome (4) Ever have to push up on a bulge in the vaginal area with your fingers to start or complete urination? No (0) Feel you need to strain too hard to have a bowel movement? No (0) Feel you have not completely emptied your bowels at the end of a bowel movement? No (0) Usually lose stool beyond your control if your stool is well formed? No (0) Usually lose stool beyond your control if your stool is loose? No (0) Usually lose gas from the rectum beyond your control? No (0) Usually have pain when you pass your stool? No (0) Experience a strong sense of urgency and have to joshi to the bathroom to have a bowel movement? No (0) Does part of your bowel ever pass through the rectum and bulge outside during or after a bowel movement? No (0) Usually experience frequent urination? Yes, quite a bit bothersome (4) Usually experience urine leakage associated with a feeling of urgency, that is, a strong sensation of needing to go to the bathroom? Yes, moderately bothersome (3) Usually experience urine leakage related to coughing, sneezing or laughing? Yes, not at all bothersome (1) Usually experience small amounts of urine leakage (that is, drops)? Yes, not at all bothersome (1) Usually experience difficulty emptying your bladder? Yes, quite a bit bothersome (4) Usually experience pain or discomfort in the lower abdomen or genital region? Yes, not at all bothersome (1) Do you have pain associated with your prolapse (not pressure or fullness) Yes, what is your typical prolapse related pain on a scale of 0-10? 4 Where is your pain located? vagina PAST SURGICAL HISTORY 2016: ARTHROSCOPY KNEE DIAGNOSTIC W/WO SYNOVIAL BX SPX; Right Comment: meniscus repair No date: BLADDER SURGERY HX 1991: BREAST AUGMENTATION WITH IMPLANT Comment: Breast augmentation : BUNIONECTOMY, LAPIDUS-TYPE Comment: Bilat. 02/2016: EGD Comment: Dr. Ojeda 01/2022: EGD - BALLOON DILATION, GUIDE 11/2013: ESOPHAGOGASTRODUODENOSCO PY TRANSORAL DIAGNOSTIC Comment: EGD Dr. Ojeda : EXT HYSTERECTOMY,W/PARTIAL VAGINECTO Comment: benign causes 06/28/2022: I AND D ABSCESS, COMPLICATED; N/A Comment: abdominal wound abscess No date: KIDNEY STONE SURGERY HX Comment: Ureteral stents 02/2014: PALOMO W/O FACETEC FORAMOT/DSC 06/23 VRT SGM CRV Comment: cervicle fusion 04/2011: LAPAROSCOPY SURG CHOLECYSTECTOMY Comment: Cholecystectomy, lap 2013: MAMMOTOME BIOPSY RIGHT 2016: PAST SURGICAL HISTORY OF Comment: MOHS for basal cell on her back 03/2016: PAST SURGICAL HISTORY OF Comment: R TKA (more content not included)... Normal [facility] Laboratory - Chemistry and C hemistry - challengeon 02-01-2024 Bilirubin Ql (U) Negative Neg [facility] Ketones Ql (U) Negative Neg [facility] pH (U) 6.5 [pH] 4.5 - 8.0 [facility] Laboratory - Urinalysison Nitrite Ql (U) Negative Neg [facility] No Panel Informationon 01-31 [facility] UA DIP B/Oon 02-01-2024 Color/Appearance clear, dark yellow comment: [facility] Glucose Ql (U) Negative Neg mg/dL [facility] Hemoglobin Ql (U) lg Neg [facility] Leukocytes trace Neg [facility] Protein.monoclonal (U) [Mass/Vol] trace Neg mg/dL [facility] Specific [place], Ur 1.025 1.005 - 1.030 [facility] Urobilinogen, Urine norm Normal (<1.1) EU [facility] Urinalysis complete panel (U )on 02-01-2024 Calcium Oxalate Crystals Few Abnormal Non e Seen /HPF [facility] Clarity (Unsp spec) Clear Clear [facility] Color (U) Yellow yellow [facility] Epithelial cells LM.HPF (Urine sed) [#/Area] Few /HPF [facility] Glucose Test strip (U) [Mass/Vol] Negative Trace, Negative [facility] Hemoglobin Ql (U) 3+ Abnormal Negative, Trace [facility] Interpretation and review of laboratory results Abnormal [facility] Leukocyte esterase Test strip Ql (U) 75 Lyly/uL Abnormal Negative, 25 Lyly/uL [facility] Protein (U) [Mass/Vol] 1+ Abnormal Trace , Negative [facility] RBC LM.HPF (Urine sed) [#/Area] 11-25 /HPF Abnormal 0-3 /HPF [facility] Specific gravity (U) [Rel density] 1.024 1.005 - 1.030 [facility] Urobilinogen Ql (U) Normal Normal [facility] WBC LM.HPF (Urine sed) [#/Area] 0-5 /HPF 0-5 /HPF [facility] Bilirubin Ql (U) Negative Normal Negative [facility] Comment on above: Order Comment: Speci men Type: URINE SPECIMENOrdering Facility: [facility] Address: [address] [place] [address] Performed By: #### 2 4356-8 ####[facility] CENTERIA [id number] [address] CALCIUM OXALATE CRYSTALS (UA) Few Abnormal None Seen [facility] Comment on above: Order Comment: Speci men Type: URINE SPECIMENOrdering Facility: [facility] Address: [address] [place] [address] Performed By: #### 2 4356-8 ####[facility] LABORATORYCLIA [id number] [address] [place] Clarity (Unsp spec) Clear Normal Clear [facility] Comment on above: Order Comment: Speci men Type: URINE SPECIMENOrdering Facility: [facility] Address: [address] [place] [address] Performed By: #### 2 4356-8 ####[facility] LABORATORYCLIA [id number] [address] OF [facility] Color (U) Yellow Normal yellow [facility] Comment on above: Order Comment: Speci men Type: URINE SPECIMENOrdering Facility: [facility] Address: [facility] [place] [address] Performed By: #### 2 4356-8 ####[facility] LABORATORYCLIA [id number] [address] [place] Epithelial cells LM.HPF (Urine sed) [#/Area] Few Normal [facility] Comment on above: Order Comment: Speci men Type: URINE SPECIMENOrdering Facility: [facility] Address: [address] [place] [address] Performed By: #### 2 4356-8 ####[facility] LABORATORYCLIA [id number] [address] Glucose Test strip (U) [Mass/Vol] Negative Normal Trace, Negative [facility] Comment on above: Order Comment: Speci men Type: URINE SPECIMENOrdering Facility: [facility] Address: [address] [place] [address] Performed By: #### 2 4356-8 ####[facility] LABORATORYCLIA [id number] [address] [place] Hemoglobin Ql (U) 3+ Abnormal Negative, Trace [facility] Comment on above: Order Comment: Speci men Type: URINE SPECIMENOrdering Facility: [facility] Address: [address] [place] [address] Performed By: #### 2 4356-8 ####[facility] LABORATORYCLIA [id number] [place] [address] [place] Ketones Ql (U) Negative Normal Negative, Trace [facility] Comment on above: Order Comment: Speci men Type: URINE SPECIMENOrdering Facility: [facility] Address: [address] [place] [address] Performed By: #### 2 4356-8 ####[facility] LABORATORYCLIA [id number] [address] [place] Leukocyte esterase Test strip Ql (U) 75 Lyly/uL Abnormal Negative, 25 Lyly/uL [facility] Comment on above: Order Comment: Speci men Type: URINE SPECIMENOrdering Facility: [facility] Address: [address] [place] [address] Performed By: #### 2 4356-8 ####[facility] LABORATORYCLIA [id number] [place] [address] [place] Nitrite Ql (U) Negative Normal Negative [facility] Comment on above: Order Comment: Speci men Type: URINE SPECIMENOrdering Facility: [facility] Address: [address] [place] [address] Performed By: #### 2 4356-8 ####[facility] LABORATORYCLIA [id number] [address] [place] pH (U) 6.5 [pH] Normal 5.0-8.0 [facility] Comment on above: Order Comment: Speci men Type: URINE SPECIMENOrdering Facility: [facility] Address: [address] [place] [address] Performed By: #### 2 4356-8 ####[facility] LABORATORYCLIA [id number] [place] [address] [place] Protein (U) [Mass/Vol] 1+ Abnormal Trace , Negative [facility] Comment on above: Order Comment: Speci men Type: URINE SPECIMENOrdering Facility: [facility] Address: [address] [place] [address] Performed By: #### 2 4356-8 ####[facility] LABORATORYCLIA [id number] [address] [place] RBC LM.HPF (Urine sed) [#/Area] 11-25 /HPF Abnormal 0-3 /HPF [facility] Comment on above: Order Comment: Speci men Type: URINE SPECIMENOrdering Facility: [facility] Address: [address] [place] [address] Performed By: #### 2 4356-8 ####[facility] LABORATORYCLIA [id number] [address] [place] Specific gravity (U) [Rel density] 1.024 Normal 1.005-1.03 0 [facility] Comment on above: Order Comment: Speci men Type: URINE SPECIMENOrdering Facility: [facility] Address: [address] [place] [address] Performed By: #### 2 4356-8 ####[facility] LABORATORYCLIA [id number] [place] [id number] [place] [facility] Urobilinogen Ql (U) Normal Normal Normal [facility] Comment on above: Order Comment: Speci men Type: URINE SPECIMENOrdering Facility: [facility] Address: [address] [place] [address] Performed By: #### 2 4356-8 ####[facility] LABORATORYCLIA [id number] [place] [id number] [place] WBC LM.HPF (Urine sed) [#/Area] 0-5 /HPF Normal 0-5 /HPF [facility] Comment on above: Order Comment: Speci men Type: URINE SPECIMENOrdering Facility: [facility] Address: [address] [place] [address] Performed By: #### 2 4356-8 ####[facility] LABORATORYCLIA [id number] [place] [id number] [place] Urine Cultureon 01-16-2024 [facility] Culture exhibits no growth. Normal [facility] Comment on above: Performed By: #### M 100.2200 #### [facility] Laboratory [address] [place], [place], [address] XR ABD 2V SUPINE W UPR/DECUB /CTLon 01-16-2024 XR ABD 2V SUPINE W UPR/DECUB/CTL * * *Final Report* * * DATE OF EXAM: Jan 16 2024 9:18AM LDX 5356 - XR ABD 2V SUPINE W UPR/DECUB/CTL / PROCEDURE REASON: LOOKING FOR A STONE * * * * Physician Interpretation * * * * TECHNIQUE: XR ABD 2V SUPINE W UPR/DECUB/CTL EXAM DATE: 01/16/2024 9:18 AM COMPARISON STUDIES: 04/22/2011 CLINICAL HISTORY: LOOKING FOR A STONE RESULT: No nephrolithiasis identified, assessment degraded by overlapping bowel gas and stool. Pelvic phleboliths. Cholecystectomy clips. No free intraperitoneal air. No dilated bowel. Moderate stool burden. Osseous degenerative changes. IMPRESSION: No nephrolithiasis identified, limitations as noted Personal Insurance Advisor: ELVIRA Transcribe Date/Time: Jan 19 2024 12:07P Dictated by : FAZAL CHACKO MD This examination was interpreted and the report reviewed and electronically signed by: FAZAL CHACKO MD on Jan 19 2024 12:11PM EST [id number] Normal [facility] Urine Cultureon 01-10-2024 [facility] Escherichia coli [place] Count 50,000-80,000 Klebsiella pneumoniae sp pneum [place] Count 11,000-25,000 Escherichia coli: REACTION Ampicillin Islt NAN <=2 S Ampicillin+Sulbac Islt ANN <=2 S ceFAZolin Islt ANN <=4 S Cefepime Islt ANN <=0.12 S cefTRIAXone Islt ANN <=0.25 S Ciprofloxacin Islt ANN <=0.25 S Ertapenem Islt ANN <=0.12 S B-Lactamase Extended Susc Islt NEG Gentamicin Islt ANN <=1 S Imipenem Islt ANN <=0.25 S levoFLOXacin Islt ANN <=0.12 S Nitrofurantoin Islt ANN <=16 S Pip+Tazo Islt ANN <=4 S Tobramycin Islt ANN <=1 S TMP SMX Islt ANN <=20 S Klebsiella pneumoniae sp pneum: REACTION Ampicillin Islt ANN >=32 R Ampicillin+Sulbac Islt ANN 4 S ceFAZolin Islt ANN <=4 S Cefepime Islt ANN <=0.12 S cefTRIAXone Islt ANN <=0.25 S Ciprofloxacin Islt ANN <=0.25 S Ertapenem Islt ANN <=0.12 S B-Lactamase Extended Susc Islt NEG Gentamicin Islt ANN <=1 S Imipenem Islt ANN <=0.25 S levoFLOXacin Islt ANN <=0.12 S Nitrofurantoin Islt ANN 32 S Pip+Tazo Islt ANN <=4 S Tobramycin Islt ANN <=1 S TMP SMX Islt ANN <=20 S Normal [facility] Comment on above: Performed By: #### L 501.9520, L500.4100, L506.0250, L500.4050, L100.0100 #### [facility] Laboratory [address] [place], [address] L3300.8200on 12-08-2023 VITAMIN B6 22.3 ug/L Normal 3.4-65.2 [facility] Comment on above: Order Comment: Test( s) [id number] B6was developed and its performance characteristicsdetermined by theScore. It has not been cleared or approvedby the Food and Drug Administration. Result Comment: Defi ciency: <3.4 Marginal: 3.4 - 5.1 Adequate: >5.1 Performed at: [address] [id number] Marketing Services Rep: Julia Huggins MD, Phone: [phone] Performed By: #### L 501.9520, L500.4100, L506.0250, L500.4050, L100.0100 #### [facility] [address] [place], [address] Urine Cultureon 12-04-2023 U[facility] Culture exhibits no growth. Normal [facility] Comment on above: Performed By: #### L 501.9520, L500.4100, L506.0250, L500.4050, L100.0100 #### [facility] [address] [place], [address] CBC W/Diff, Automatedon 11-20 Absolute Lymph 1.95 X10 3/uL Normal 0.83-4.51 [facility] Comment on above: Performed By: #### L 506.0250, L500.4100, M100.2200, L100.0100, L503.0105, L3300.8200 #### [facility] [address] [place], [address] Absolute Neut 4.2 X10 3/uL Normal 2.0-7.7 [facility] Comment on above: Performed By: #### L 506.0250, L500.4100, M100.2200, L100.0100, L503.0105, L3300.8200 #### [facility] [address] [place], [address] Basophils/100 WBC (Bld) 0.4 % Normal 0-1 [facility] Comment on above: Performed By: #### L 506.0250, L500.4100, M100.2200, L100.0100, L503.0105, L3300.8200 #### [facility] [address] [place], [address] Eosinophils/100 WBC (Bld) 2.2 % Normal 0-5 [facility] Comment on above: Performed By: #### L 506.0250, L500.4100, M100.2200, L100.0100, L503.0105, L3300.8200 #### [facility] [address] [place], [address] Erythrocyte distribution width (RBC) [Ratio] 15.0 % High 11.6-14.6 [facility] Comment on above: Performed By: #### L 506.0250, L500.4100, M100.2200, L100.0100, L503.0105, L3300.8200 #### [facility] [address] [place], [address] Hematocrit (Bld) [Volume fraction] 39.3 % Normal 37-47 [facility] Comment on above: Performed By: #### L 506.0250, L500.4100, M100.2200, L100.0100, L503.0105, L3300.8200 #### [facility] [address] [place], [address] Hemoglobin (Bld) [Mass/Vol] 12.3 g/dL Normal 12.0-15.0 [facility] Comment on above: Performed By: #### L 506.0250, L500.4100, M100.2200, L100.0100, L503.0105, L3300.8200 #### [facility] [address] [place], [address] IG% 0.100 Normal 0.0-0.9 [facility] Comment on above: Result Comment: IG% - Immature Granulocytes (promyelocytes, myelocytes and metamyelocytes) > 1% indicates that a LEFT SHIFT is Present. Performed By: #### L 506.0250, L500.4100, M100.2200, L100.0100, L503.0105, L3300.8200 #### [facility] [address] [place], [address] Lymphocytes/100 WBC (Bld) 28.7 % Normal 19-41 [facility] Comment on above: Performed By: #### L 506.0250, L500.4100, M100.2200, L100.0100, L503.0105, L3300.8200 #### [facility] [address] [place], [address] MCH (RBC) [Entitic mass] 27.3 pg Normal 27.0-32.0 [facility] Comment on above: Performed By: #### L 506.0250, L500.4100, M100.2200, L100.0100, L503.0105, L3300.8200 #### [facility] [address] [place], [address] MCHC (RBC) [Mass/Vol] 31.3 g/dL Low 32-36 [facility] Comment on above: Performed By: #### L 506.0250, L500.4100, M100.2200, L100.0100, L503.0105, L3300.8200 #### [facility] [address] [place], [address] MCV (RBC) [Entitic vol] 87.1 fL Normal 81-99 [facility] Comment on above: Performed By: #### L 506.0250, L500.4100, M100.2200, L100.0100, L503.0105, L3300.8200 #### [facility] [address] [place], [address] Monocytes/100 WBC (Bld) 6.9 % Normal 0-10 [facility] Comment on above: Performed By: #### L 506.0250, L500.4100, M100.2200, L100.0100, L503.0105, L3300.8200 #### [facility] [address] [place], [address] Neutrophils/100 WBC (Bld) 61.7 % Normal 47-70 [facility] Comment on above: Performed By: #### L 506.0250, L500.4100, M100.2200, L100.0100, L503.0105, L3300.8200 #### [facility] [address] [place], [address] Nucleated RBC (Bld) [#/Vol] 0 10*3/uL Normal 0-5 [facility] Comment on above: Performed By: #### L 506.0250, L500.4100, M100.2200, L100.0100, L503.0105, L3300.8200 #### [facility] [address] [place], [address] Platelet mean volume (Bld) [Entitic vol] 9.7 fL Normal 6.2-12.0 [facility] Comment on above: Performed By: #### L 506.0250, L500.4100, M100.2200, L100.0100, L503.0105, L3300.8200 #### [facility] [address] [place], [address] Platelets (Bld) [#/Vol] 250 10*3/uL Normal 150-450 [facility] Comment on above: Performed By: #### L 506.0250, L500.4100, M100.2200, L100.0100, L503.0105, L3300.8200 #### [facility] [address] [place], [address] RBC (Bld) [#/Vol] 4.51 10*6/uL Normal 4.2-5.4 [facility] Comment on above: Performed By: #### L 506.0250, L500.4100, M100.2200, L100.0100, L503.0105, L3300.8200 #### [facility] [address] [place], [address] RDW SD 47.9 fl High 35.1-43.9 [facility] Comment on above: Performed By: #### L 506.0250, L500.4100, M100.2200, L100.0100, L503.0105, L3300.8200 #### [facility] [address] [place], [address] WBC (Bld) [#/Vol] 6.8 10*3/uL Normal 4.4-11.0 [facility] Comment on above: Performed By: #### L 506.0250, L500.4100, M100.2200, L100.0100, L503.0105, L3300.8200 #### [facility] [address] [place], [address] Folates, (Folic Acid)on 11-20 FOLATES 51.70 ng/mL Normal 3.1-55.4 [facility] Comment on above: Order Comment: N Performed By: #### L 506.0250, L500.4100, M100.2200, L100.0100, L503.0105, L3300.8200 #### [facility] [address] [place], [address] Lipid Profileon 12-03-2023 Cholesterol [Mass/Vol] 196 mg/dL Normal 200 [facility] Comment on above: Order Comment: N Result Comment: <200 mg/dL Desirable 200-240 mg/dL Borderline >240 mg/dL High Risk Performed By: #### L 506.0250, L500.4100, M100.2200, L100.0100, L503.0105, L3300.8200 #### [facility] [address] [place], [address] Cholesterol in HDL [Mass/Vol] 55 mg/dL Normal [facility] Comment on above: Order Comment: N Result Comment: The drugs N-Acetylcysteine and Metamizole may falsely depress this assay. Reference Range HDL <40 mg/dL Low HDL Cholesterol HDL >or= 60 mg/dL High HDL Cholesterol Performed By: #### L 506.0250, L500.4100, M100.2200, L100.0100, L503.0105, L3300.8200 #### [facility] [address] [place], [address] Cholesterol in LDL [Mass/Vol] 121 mg/dL Normal 0-130 [facility] Comment on above: Order Comment: N Performed By: #### L 506.0250, L500.4100, M100.2200, L100.0100, L503.0105, L3300.8200 #### [facility] [address] [place], [address] Cholesterol in VLDL [Mass/Vol] 20 mg/dL Normal 5-40 [facility] Comment on above: Order Comment: N Performed By: #### L 506.0250, L500.4100, M100.2200, L100.0100, L503.0105, L3300.8200 #### [facility] [address] [place], [place], [address] Triglyceride [Mass/Vol] 99 mg/dL Normal [facility] Comment on above: Order Comment: N Result Comment: The drugs N-Acetylcysteine and Metamizole may falsely depress this assay. Serum Triglycerides Reference Interval Normal <150 mg/dL Borderline high 150 - 199 mg/dL High 200 - 499 mg/dL Very High > or = 500 mg/dL Performed By: #### L 506.0250, L500.4100, M100.2200, L100.0100, L503.0105, L3300.8200 #### [facility] [address] [place], [place], [id number] Vitamin B12on 12-03-2023 Cobalamin (Vitamin B12) [Mass/Vol] pg/mL High 211-911 [facility] Comment on above: Performed By: #### L 506.0250, L500.4100, M100.2200, L100.0100, L503.0105, L3300.8200 #### [facility] [address] [place], [place], [address] [facility] Telephone ([facility]) -------- TEVIN VILLAGOMEZ ([id number]) 1955 F Date Time Provider Department 11/27/23 SIXTO SIMMONS [facility] During your visit today, we recorded the following information about you: Anthony Graves RN 11/27/2023 2:23 PM Signed Call placed to patient with breast biopsy results. Patient did not answer, voicemail left identifying self and return number. Anthony Graves RN, BSN Anthony Graves RN 11/27/2023 2:44 PM Signed Received call back from patient.Verified name and date of . Informed patient that her breast biopsy came back benign. Verified follow up appointment and encouraged patient to keep appointment for further recommendations from the doctor. Anthony Graves RN, BSN Allergies As of Date: 11/27/2023 (No Known Allergies) Date Reviewed: 11/24/2023 Reviewed by: Santy Cleveland, RT(R) - Fully Assessed Reason for Visit: Results [95] Prescriptions as of 11/27/2023 - sertraline (ZOLOFT) 50 mg tablet Take 2 tablets by mouth daily at bedtime. - ibuprofen (MOTRIN) 600 mg tablet Take 1 tablet by mouth every 8 hours as needed for pain or fever (specify temp.). - dicyclomine (BENTYL) 20 mg tablet Take 20 mg by mouth twice daily. - sucralfate (CARAFATE) 1 gram tablet Take 1 g by mouth daily at bedtime. - denosumab (PROLIA) 60 mg/mL 60 mg by Injection - FOR ORTHO USE ONLY route once every 6 months. - meclizine (ANTIVERT) 12.5 mg tab Take 1 tablet by mouth twice daily as needed (dizziness). - esomeprazole (NEXIUM) 40 mg capsule Take 40 mg by mouth daily at 6 am. - levothyroxine (SYNTHROID) 25 mcg tablet Take 25 mcg by mouth once daily. - traMADol (ULTRAM) 50 mg tablet Take 50 mg by mouth every 8 hours as needed for pain. - SUMAtriptan (IMITREX) 100 mg tablet Take 1 tablet by mouth as needed. at onset of headache.May repeat after 2 hours. - LORazepam (ATIVAN) 1 mg tablet Take 1 tablet by mouth every 8 hours. - acetaminophen 325 mg-caffeine 40 mg-butalbital 50 mg (FIORICET) per tablet Take 1 tablet by mouth every 6 hours as needed. - promethazine (PHENERGAN) 25 mg tablet Take 1 tablet by mouth every 4 hours as needed for Nausea/Vomiting. Problem List As Of Date 11/27/2023 Noted Resolved GERD (gastroesophageal reflux disease) [K21.9] 04/21/2011 04/27/2011 Laparotomy, Excision of esophageal leiomyoma an*04/21/2011 01/30/2015 Atelectasis [J98.11] 04/22/2011 04/27/2011 Postoperative pain [G89.18] 04/22/2011 05/02/2011 Migraine [G43.909] 04/23/2011 03/13/2015 Stress hyperglycemia [R73.9] 04/23/2011 04/23/2011 Tachycardia [R00.0] 04/23/2011 04/23/2011 DVT prophylaxis [[id number]] 04/23/2011 05/02/2011 Discharge Planning [Z71.89] 04/23/2011 05/02/2011 GERD (gastroesophageal reflux disease) [K21.9] 03/13/2015 Neck pain [M54.2] 05/21/2022 Motion sickness [T75.3XXA] 01/30/2015 Osteoarthritis [M19.90] Fibromyalgia [M79.7] Migraine without aura and without status migrai*03/13/2015 Gastroesophageal reflux disease with esophagiti*03/13/2015 Anxiety and depression [F41.9, F32.A] Obesity (BMI 30-39.9) [E66.9] 10/02/2015 Irritable colon [K58.9] 08/06/2016 Abdominal pain [R10.9] 10/02/2016 10/04/2016 Malnutrition of moderate degree (HCC) [E44.0] 10/03/2016 Nausea and vomiting [R11.2] 10/04/2016 10/04/2016 Diarrhea [R19.7] 10/04/2016 10/04/2016 Dilated bile duct [K83.8] 10/06/2016 S/P ERCP [Z98.890] 10/06/2016 Acquired hypothyroidism [E03.9] Levoscoliosis of thoracic spine [M41.84] Dysphagia [R13.10] Incisional hernia, without obstruction or gangr*06/06/2022 PONV (postoperative nausea and vomiting) [R11.2*06/06/2022 Obesity, Class I, BMI 30-34.9 [E66.9] 06/06/2022 S/P hernia repair [Z98.890, Z87.19] 06/07/2022 Abdominal wall abscess at site of surgical woun*06/27/2022 Leukocytosis [D72.829] 06/27/2022 07/02/2022 Cellulitis of left hand [L03.114] 05/18/2023 Hyponatremia [E87.1] 05/18/2023 05/20/2023 Encounter Status:Closed by ANTHONY GRAVES on 11/27/23 [facility] [place] 11-26-2023 CNPN Telephone ([place]) -------- TEVIN VILLAGOMEZ ([id number]) 1955 F Date Time Provider Department 11/26/23 SIXTO SIMMONS [facility] During your visit today, we recorded the following information about you: Anthony Graves RN 11/26/2023 12:51 PM Signed Call placed to patient with breast biopsy results. Patient did not answer, voicemail left identifying self and return number. Anthony Graves RN, BSN Allergies As of Date: 11/26/2023 (No Known Allergies) Date Reviewed: 11/24/2023 Reviewed by: Santy Cleveland, RT(R) - Fully Assessed Reason for Visit: Results [95] Prescriptions as of 11/26/2023 - sertraline (ZOLOFT) 50 mg tablet Take 2 tablets by mouth daily at bedtime. - ibuprofen (MOTRIN) 600 mg tablet Take 1 tablet by mouth every 8 hours as needed for pain or fever (specify temp.). - dicyclomine (BENTYL) 20 mg tablet Take 20 mg by mouth twice daily. - sucralfate (CARAFATE) 1 gram tablet Take 1 g by mouth daily at bedtime. - denosumab (PROLIA) 60 mg/mL 60 mg by Injection - FOR ORTHO USE ONLY route once every 6 months. - meclizine (ANTIVERT) 12.5 mg tab Take 1 tablet by mouth twice daily as needed (dizziness). - esomeprazole (NEXIUM) 40 mg capsule Take 40 mg by mouth daily at 6 am. - levothyroxine (SYNTHROID) 25 mcg tablet Take 25 mcg by mouth once daily. - traMADol (ULTRAM) 50 mg tablet Take 50 mg by mouth every 8 hours as needed for pain. - SUMAtriptan (IMITREX) 100 mg tablet Take 1 tablet by mouth as needed. at onset of headache.May repeat after 2 hours. - LORazepam (ATIVAN) 1 mg tablet Take 1 tablet by mouth every 8 hours. - acetaminophen 325 mg-caffeine 40 mg-butalbital 50 mg (FIORICET) per tablet Take 1 tablet by mouth every 6 hours as needed. - promethazine (PHENERGAN) 25 mg tablet Take 1 tablet by mouth every 4 hours as needed for Nausea/Vomiting. Problem List As Of Date 11/26/2023 Noted Resolved GERD (gastroesophageal reflux disease) [K21.9] 04/21/2011 04/27/2011 Laparotomy, Excision of esophageal leiomyoma an*04/21/2011 01/30/2015 Atelectasis [J98.11] 04/22/2011 04/27/2011 Postoperative pain [G89.18] 04/22/2011 05/02/2011 Migraine [G43.909] 04/23/2011 03/13/2015 Stress hyperglycemia [R73.9] 04/23/2011 04/23/2011 Tachycardia [R00.0] 04/23/2011 04/23/2011 DVT prophylaxis [[id number]] 04/23/2011 05/02/2011 Discharge Planning [Z71.89] 04/23/2011 05/02/2011 GERD (gastroesophageal reflux disease) [K21.9] 03/13/2015 Neck pain [M54.2] 05/21/2022 Motion sickness [T75.3XXA] 01/30/2015 Osteoarthritis [M19.90] Fibromyalgia [M79.7] Migraine without aura and without status migrai*03/13/2015 Gastroesophageal reflux disease with esophagiti*03/13/2015 Anxiety and depression [F41.9, F32.A] Obesity (BMI 30-39.9) [E66.9] 10/02/2015 Irritable colon [K58.9] 08/06/2016 Abdominal pain [R10.9] 10/02/2016 10/04/2016 Malnutrition of moderate degree (HCC) [E44.0] 10/03/2016 Nausea and vomiting [R11.2] 10/04/2016 10/04/2016 Diarrhea [R19.7] 10/04/2016 10/04/2016 Dilated bile duct [K83.8] 10/06/2016 S/P ERCP [Z98.890] 10/06/2016 Acquired hypothyroidism [E03.9] Levoscoliosis of thoracic spine [M41.84] Dysphagia [R13.10] Incisional hernia, without obstruction or gangr*06/06/2022 PONV (postoperative nausea and vomiting) [R11.2*06/06/2022 Obesity, Class I, BMI 30-34.9 [E66.9] 06/06/2022 S/P hernia repair [Z98.890, Z87.19] 06/07/2022 Abdominal wall abscess at site of surgical woun*06/27/2022 Leukocytosis [D72.829] 06/27/2022 07/02/2022 Cellulitis of left hand [L03.114] 05/18/2023 Hyponatremia [E87.1] 05/18/2023 05/20/2023 Encounter Status:Closed by ANTHONY GRAVES on 11/26/23 Normal [facility] DIAGNOSTIC LTon 11-24-19 [facility] * * *Final Report* * * * * * SEE BOTTOM OF REPORT FOR ADDENDED TEXT * * * DATE OF EXAM: Nov 24 2023 9:26AM MARITZA 0621 - [facility] DIAG[facility]IC [facility] / PROCEDURE REASON: Abnormal finding on breast imaging * * * * Physician Interpretation * * * * #[id number] - [facility] US BIOPSY BREAST LT #[id number] - [facility] ULTRASOUND GUIDED BIOPSY LEFT BREAST WITH MARKING DEVICE INSERTED AND POST DIGITAL MAMMOGRAPHIC AND ULTRASOUND IMAGIN11/24/2023 HISTORY: Ultrasound guided biopsy left breast. Abnormal Finding On Breast Imaging /Post breast biopsy clip placement. PATIENT CONSENT: A time out was performed immediately prior to procedure start with the radiology team, correctly identifying the patient name, date of , procedure, anatomy (including marking of site and side), patient position, relevant diagnostic and radiology test results, safety precautions, and procedure-specific equipment needs. The procedure was explained to the patient including the risks, benefits and alternatives. Medications and allergies were also reviewed. The risks, including but not limited to infection and bleeding, were reviewed by the performing physician and the patient agreed to undergo the procedure. The radiologist and technologist were present throughout the entire procedure. Audible Time Out Time: 08:45 Procedure Start Time: 08:50 Procedure Stop Time: 09:00 Dr. Lori Fung was present during all critical and valiente portions of the procedure and scrubbed in and immediately available to furnish services during the entire procedure. The retail assistant store manager radiologist was Dr. Jovita Gutierrez. The retail assistant store manager radiologist performed the following procedural tasks: lidocaine administration, core sampling clip placement. Correlation is made to exams dated: 10/27/2023 ultrasound, 10/27/2023 mammogram, 09/29/2023 mammogram - [facility], 2013 stereotactic biopsy, 2013 mammogram - [facility], and 06/08/2013 mammogram - [facility]. An ultrasound guided biopsy using real-time ultrasound was performed for the concerning mass located in the left breast at 9 o'clock 3 cm from the nipple. This was described on the previous mammography and ultrasound reports. The skin was prepped in the usual manner. Local anesthetic was administered to the access site. A skin cody was made in the breast. The abnormality was approached from the caudocranial aspect. A 14 gauge biopsy needle was placed adjacent to the abnormality under ultrasound guidance. Once the needle was documented to be in the correct location, two specimens were obtained using marquee needle. A ribbon clip was inserted into the biopsy cavity. A skin closure strip and a sterile dressing were applied to the access site. Post procedure digital mammographic and ultrasound imaging demonstrates the location device at the targeted area. The specimens were sent to the laboratory for pathological analysis. IMPRESSION: ULTRASOUND GUIDED BIOPSY BENIGN Ultrasound guided biopsy of the mass in the left breast at 9 o'clock 3 cm from the nipple with placement of a clip was successful with no apparent post procedure complications. 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 Pathology results are concordant with imaging findings. Return to annual mammogram screening schedule is recommended. The procedure was reviewed by a staff physician. SUMMARY: FINAL DIAGNOSIS A. Left breast, 9:00, 3 cm from nipple, core biopsy with ribbon clip placement: - Breast tissue with stromal fibrosis and apocrine metaplasia. Dr. Simmons's office will reach out to the patient with her benign and concordant results. Lori Gutierrez D.O. km,trena/lucina:11/26/2023 09:32:23 Supplier Quality Engineer(s): Hans Cohen(Shirley)(M), [employer] [place]; Lindy SmithSJanak, [facility] Multiple national specialty organizations have released breast cancer screening guidelines for women at average risk for developing breast cancer - guidelines that are based on both evidence and opinion, yet differ on when to start and how often to screen for breast cancer. With representation from Breast Imaging, Internal Medicine, Women's Health, Family Medicine, and Medical/Surgical Oncology, the [facility] has carefully reviewed the data and reached the following consensus: 1) All women should engage in shared decision-making with their providers to decide when to start and how often to screen; 2) All women should have the opportunity to start screening mammography at age 40; 3) For women ages 45-55, we recommend annual screening mammograms; 4) For women ages 55 and over, we support both the transition from an annual to a biennial interval if this aligns more with patient's values and preferences, or continuation with annual screening; 5) All women should discuss with their providers (more content not included)... Normal [facility] US BIOPSY BREAST LTon [facility] US BIOPSY BREAST LT * * *Final Repor t* * * * * * SEE BOTTOM OF REPORT FOR ADDENDED TEXT * * * DATE OF EXAM: Nov 24 2023 9:14AM [id number] - [facility] US BIOPSY BREAST LT / PROCEDURE REASON: Abnormal finding on breast imaging * * * * Physician Interpretation * * * * #[id number] - [facility] US BIOPSY BREAST LT #[id number] - [facility] DIAGNOSTIC LT ULTRASOUND GUIDED BIOPSY LEFT BREAST WITH MARKING DEVICE INSERTED AND POST DIGITAL MAMMOGRAPHIC AND ULTRASOUND IMAGIN11/24/2023 HISTORY: Ultrasound guided biopsy left breast. Abnormal Finding On Breast Imaging /Post breast biopsy clip placement. PATIENT CONSENT: A time out was performed immediately prior to procedure start with the radiology team, correctly identifying the patient name, date of , procedure, anatomy (including marking of site and side), patient position, relevant diagnostic and radiology test results, safety precautions, and procedure-specific equipment needs. The procedure was explained to the patient including the risks, benefits and alternatives. Medications and allergies were also reviewed. The risks, including but not limited to infection and bleeding, were reviewed by the performing physician and the patient agreed to undergo the procedure. The radiologist and technologist were present throughout the entire procedure. Audible Time Out Time: 08:45 Procedure Start Time: 08:50 Procedure Stop Time: 09:00 Dr. Lori Fung was present during all critical and valiente portions of the procedure and scrubbed in and immediately available to furnish services during the entire procedure. The retail assistant store manager radiologist was Dr. Jovita Gutierrez. The retail assistant store manager radiologist performed the following procedural tasks: lidocaine administration, core sampling clip placement. Correlation is made to exams dated: 10/27/2023 ultrasound, 10/27/2023 mammogram, 09/29/2023 mammogram - [facility], 2013 stereotactic biopsy, 2013 mammogram - [facility], and 06/08/2013 mammogram - [facility]. An ultrasound guided biopsy using real-time ultrasound was performed for the concerning mass located in the left breast at 9 o'clock 3 cm from the nipple. This was described on the previous mammography and ultrasound reports. The skin was prepped in the usual manner. Local anesthetic was administered to the access site. A skin cody was made in the breast. The abnormality was approached from the caudocranial aspect. A 14 gauge biopsy needle was placed adjacent to the abnormality under ultrasound guidance. Once the needle was documented to be in the correct location, two specimens were obtained using marquee needle. A ribbon clip was inserted into the biopsy cavity. A skin closure strip and a sterile dressing were applied to the access site. Post procedure digital mammographic and ultrasound imaging demonstrates the location device at the targeted area. The specimens were sent to the laboratory for pathological analysis. IMPRESSION: ULTRASOUND GUIDED BIOPSY BENIGN Ultrasound guided biopsy of the mass in the left breast at 9 o'clock 3 cm from the nipple with placement of a clip was successful with no apparent post procedure complications. 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 Pathology results are concordant with imaging findings. Return to annual mammogram screening schedule is recommended. The procedure was reviewed by a staff physician. SUMMARY: FINAL DIAGNOSIS A. Left breast, 9:00, 3 cm from nipple, core biopsy with ribbon clip placement: - Breast tissue with stromal fibrosis and apocrine metaplasia. Dr. Simmons's office will reach out to the patient with her benign and concordant results. Lori taylor,[facility]/lucina:11/26/2023 09:32:23 Supplier Quality Engineer(s): Hans Cohen(Shirley)(M), [facility]; Santy Villatoro R.D.M.S., [facility] Multiple national specialty organizations have released breast cancer screening guidelines for women at average risk for developing breast cancer - guidelines that are based on both evidence and opinion, yet differ on when to start and how often to screen for breast cancer. With representation from Breast Imaging, Internal Medicine, Women's Health, Family Medicine, and Medical/Surgical Oncology, the [facility] has carefully reviewed the data and reached the following consensus: 1) All women should engage in shared decision-making with their providers to decide when to start and how often to screen; 2) All women should have the opportunity to start screening mammography at age 40; 3) For women ages 45-55, we recommend annual screening mammograms; 4) For women ages 55 and over, we support both the transition from an annual to a biennial interval if this aligns more with patient's values and preferences, or continuation with annual screening; 5) All women should discuss with their prov (more content not included)... Normal [facility] MG Breast - left Diagnostic for implanton 11-24-2023 IMPRESSION: ULTRASOU ND GUIDED BIOPSY Ultrasound guided biopsy of the mass in the left breast at 9 o'clock 3 cm from the nipple with placement of a clip was successful with no apparent post procedure complications. Waiting for pathology results. A final report will be issued when these become available. The procedure was reviewed by a staff physician. Lori taylor,[facility]/lucina:11/24/2023 18:04:54 Supplier Quality Engineer(s): Hans Cohen(R)(M), [facility]; Santy Villatoro R.D.M.S., [facility] Multiple national specialty organizations have released breast cancer screening guidelines for women at average risk for developing breast cancer - guidelines that are based on both evidence and opinion, yet differ on when to start and how often to screen for breast cancer. With representation from Breast Imaging, Internal Medicine, Women's Health, Family Medicine, and Medical/Surgical Oncology, the [facility] has carefully reviewed the data and reached the following consensus: 1) All women should engage in shared decision-making with their providers to decide when to start and how often to screen; 2) All women should have the opportunity to start screening mammography at age 40; 3) For women ages 45-55, we recommend annual screening mammograms; 4) For women ages 55 and over, we support both the transition from an annual to a biennial interval if this aligns more with patient's values and preferences, or continuation with annual screening; 5) All women should discuss with their providers when to stop screening mammograms. Personal Insurance Advisor: [place]ina Transcribe Date/Time: Nov 24 2023 8:17A Dictated by : LORI FUNG MD This examination was interpreted and the report reviewed and electronically signed by: LORI FUNG MD on Nov 24 2023 6:04PM [facility] * * *Final Report* * * DATE OF EXAM: Nov 24 2023 9:26AM [facility] 0621 - [facility] DIAGNO[facility]IC LT / PROCEDURE REASON: Abnormal finding on breast imaging * * * * Physician Interpretation * * * * #[id number] - [facility] US BIOPSY BREAST LT #[id number] - [facility] ULTRASOUND GUIDED BIOPSY LEFT BREAST WITH MARKING DEVICE INSERTED AND POST DIGITAL MAMMOGRAPHIC AND ULTRASOUND IMAGIN11/24/2023 HISTORY: Ultrasound guided biopsy left breast. Abnormal Finding On Breast Imaging /Post breast biopsy clip placement. PATIENT CONSENT: A time out was performed immediately prior to procedure start with the radiology team, correctly identifying the patient name, date of , procedure, anatomy (including marking of site and side), patient position, relevant diagnostic and radiology test results, safety precautions, and procedure-specific equipment needs. The procedure was explained to the patient including the risks, benefits and alternatives. Medications and allergies were also reviewed. The risks, including but not limited to infection and bleeding, were reviewed by the performing physician and the patient agreed to undergo the procedure. The radiologist and technologist were present throughout the entire procedure. Audible Time Out Time: 08:45 Procedure Start Time: 08:50 Procedure Stop Time: 09:00 Dr. Lori Fung was present during all critical and valiente portions of the procedure and scrubbed in and immediately available to furnish services during the entire procedure. The retail assistant store manager radiologist was Dr. Jovita Gutierrez. The retail assistant store manager radiologist performed the following procedural tasks: lidocaine administration, core sampling clip placement. Correlation is made to exams dated: 10/27/2023 ultrasound, 10/27/2023 mammogram, 09/29/2023 mammogram - [facility], 2013 stereotactic biopsy, 2013 mammogram - [facility], and 06/08/2013 mammogram - [facility]. An ultrasound guided biopsy using real-time ultrasound was performed for the concerning mass located in the left breast at 9 o'clock 3 cm from the nipple. This was described on the previous mammography and ultrasound reports. The skin was prepped in the usual manner. Local anesthetic was administered to the access site. A skin cody was made in the breast. The abnormality was approached from the caudocranial aspect. A 14 gauge biopsy needle was placed adjacent to the abnormality under ultrasound guidance. Once the needle was documented to be in the correct location, two specimens were obtained using marquee needle. A ribbon clip was inserted into the biopsy cavity. A skin closure strip and a sterile dressing were applied to the access site. Post procedure digital mammographic and ultrasound imaging demonstrates the location device at the targeted area. The specimens were sent to the laboratory for pathological analysis. [facility] Provider, [facility] - 11/24/2023 * * *Final Report* * * DATE OF EXAM: Nov 24 2023 9:26AM [facility] [place] 0621 - [facility] DIAGNOSTIC LT / PROCEDURE REASON: Abnormal finding on breast imaging * * * * Physician Interpretation * * * * #[id number] - [facility] US BIOPSY BREAST LT #[id number] - [facility] ULTRASOUND GUIDED BIOPSY LEFT BREAST WITH MARKING DEVICE INSERTED AND POST DIGITAL MAMMOGRAPHIC AND ULTRASOUND IMAGIN11/24/2023 HISTORY: Ultrasound guided biopsy left breast. Abnormal Finding On Breast Imaging /Post breast biopsy clip placement. PATIENT CONSENT: A time out was performed immediately prior to procedure start with the radiology team, correctly identifying the patient name, date of , procedure, anatomy (including marking of site and side), patient position, relevant diagnostic and radiology test results, safety precautions, and procedure-specific equipment needs. The procedure was explained to the patient including the risks, benefits and alternatives. Medications and allergies were also reviewed. The risks, including but not limited to infection and bleeding, were reviewed by the performing physician and the patient agreed to undergo the procedure. The radiologist and technologist were present throughout the entire procedure. Audible Time Out Time: 08:45 Procedure Start Time: 08:50 Procedure Stop Time: 09:00 Dr. Lori Fung was present during all critical and valiente portions of the procedure and scrubbed in and immediately available to furnish services during the entire procedure. The retail assistant store manager radiologist was Dr. Jovita Gutierrez. The retail assistant store manager radiologist performed the following procedural tasks: lidocaine administration, core sampling clip placement. Correlation is made to exams dated: 10/27/2023 ultrasound, 10/27/2023 mammogram, 09/29/2023 mammogram - [facility], 2013 stereotactic biopsy, 2013 mammogram - [facility], and 06/08/2013 mammogram - [facility]. An ultrasound guided biopsy using real-time ultrasound was performed for the concerning mass located in the left breast at 9 o'clock 3 cm from the nipple. This was described on the previous mammography and ultrasound reports. The skin was prepped in the usual manner. Local anesthetic was administered to the access site. A skin cody was made in the breast. The abnormality was approached from the caudocranial aspect. A 14 gauge biopsy needle was placed adjacent to the abnormality under ultrasound guidance. Once the needle was documented to be in the correct location, two specimens were obtained using marquee needle. A ribbon clip was inserted into the biopsy cavity. A skin closure strip and a sterile dressing were applied to the access site. Post procedure digital mammographic and ultrasound imaging demonstrates the location device at the targeted area. The specimens were sent to the laboratory for pathological analysis. IMPRESSION IMPRESSION: ULTRASOUND GUIDED BIOPSY Ultrasound guided biopsy of the mass in the left breast at 9 o'clock 3 cm from the nipple with placement of a clip was successful with no apparent post procedure complications. Waiting for pathology results. A final report will be issued when these become available. The procedure was reviewed by a staff physician. Lori Charles.O. km,trena/lucina:11/24/2023 18:04:54 Supplier Quality Engineer(s): Hans Cohen(Shirley)(M), [employer] [place] [employer]; Lindy SmithSJanak, [facility] Multiple national specialty organizations have released breast cancer screening guidelines for women at average risk for developing breast cancer - guidelines that are based on both evidence and opinion, yet differ on when to start and how often to screen for breast cancer. With representation from Breast Imaging, Internal Medicine, Women's Health, Family Medicine, and Medical/Surgical Oncology, the [facility] has carefully reviewed the data and reached the following consensus: 1) All women should engage in shared decision-making with their providers to decide when to start and how often to screen; 2) All women should have the opportunity to start screening mammography at age 40; 3) For women ages 45-55, we recommend annual screening mammograms; 4) For women ages 55 and over, we support both the transition from an annual to a biennial interval if this aligns more with patient's values and preferences, or continuation with annual screening; 5) All women should discuss with their providers when to stop screening mammograms. Personal Insurance Advisor: Lucina Transcribe Date/Time: Nov 24 2023 8:17A Dictated by : LORI FUNG MD This examination was interpreted and the report reviewed and electronically signed by: LORI FUNG MD on Nov 24 2023 6:04PM [facility] Radiology Study observation (narrative) [facility] SURGICAL PATHOLOGYon 024 CASE REPORT Normal [facility] Comment on above: Order Comment: Speci men Type: TISSUE SPECIMENOrdering Facility: [facility] Address: [address] [place] [address] Result Comment: Surg [facility] Pathology Report Case: [id number] Authorizing Provider: Lori Fung MD Collected: 11/24/2023 09:00 AM Ordering Location: [facility] Received: 11/24/2023 11:27 AM [facility] Pathologist: Koko Stoner DO Specimen: Breast, Left, Core Biopsy, 9:00 3 cm FN Performed By: #### S ####[facility]ORYCLIA [id number] [address] CLINICAL HISTORY Low suspicion lobula maikol mass r/o malignancy or fibrocystic changes Normal [facility] Comment on above: Order Comment: Speci men Type: TISSUE SPECIMENOrdering Facility: [facility] Address: [address] [place] [address] Performed By: #### S ####[facility]ATORYCLIA [id number] [address] FINAL DIAGNOSIS Normal [facility] Comment on above: Order Comment: Speci men Type: TISSUE SPECIMENOrdering Facility: [facility] Address: [address] [place] [address] Result Comment: Danielle Martin eft breast, 9:00, 3 cm from nipple, core biopsy with ribbon clip placement: - Breast tissue with stromal fibrosis and apocrine metaplasia. Performed By: #### S ####[facility]ATORYCLIA [id number] [address] FINAL PERFORMING LAB Normal [facility] Comment on above: Order Comment: Speci men Type: TISSUE SPECIMENOrdering Facility: [facility] Address: [address] [place] [address] Result Comment: Diag nostic interpretation performed at [facility], [address] [place] [address] CLIA# [id number] Lcsw: Radhames Guerrero M.D. Performed By: #### S ####[facility]ATORYCLIA [id number] [address] GROSS DESCRIPTION Normal [facility] Comment on above: Order Comment: Speci men Type: TISSUE SPECIMENOrdering Facility: [facility] Address: [address] [place] [address] Result Comment: Danielle shahidt, Left, Core Biopsy Received in formalin labeled breast core biopsy left 9:00 3 cm from nipple are multiple white-yellow segments of tissue aggregating to 1.0 x 0.5 x 0.1 cm. The specimens are totally submitted in formalin in 1 cassette. Time removed from patient is 9 AM on 11/24/2023. Time placed in formalin is 9 AM on 11/24/2023. Gross examination performed at [facility], [address] [id number] [place] November 24, 2023 2:43 PM Performed By: #### S ####[facility] LABORATORYCLIA [id number] [place] [address] [place] Guidance for biopsy of Br east - lefton 11-24-2023 Addendum by Provider , [facility] [place] on 11/24/2023 6:05 PM EDT * * *Final Report* * * * * * SEE BOTTOM OF REPORT FOR ADDENDED TEXT * * * DATE OF EXAM: Nov 24 2023 9:14AM [place] 0597 - [facility] US BIOPSY BREAST LT / PROCEDURE REASON: Abnormal finding on breast imaging * * * * Physician Interpretation * * * * #[id number] - [facility] US BIOPSY BREAST LT #[id number] - [facility] ULTRASOUND GUIDED BIOPSY LEFT BREAST WITH MARKING DEVICE INSERTED AND POST DIGITAL MAMMOGRAPHIC AND ULTRASOUND IMAGIN11/24/2023 HISTORY: Ultrasound guided biopsy left breast. Abnormal Finding On Breast Imaging /Post breast biopsy clip placement. PATIENT CONSENT: A time out was performed immediately prior to procedure start with the radiology team, correctly identifying the patient name, date of , procedure, anatomy (including marking of site and side), patient position, relevant diagnostic and radiology test results, safety precautions, and procedure-specific equipment needs. The procedure was explained to the patient including the risks, benefits and alternatives. Medications and allergies were also reviewed. The risks, including but not limited to infection and bleeding, were reviewed by the performing physician and the patient agreed to undergo the procedure. The radiologist and technologist were present throughout the entire procedure. Audible Time Out Time: 08:45 Procedure Start Time: 08:50 Procedure Stop Time: 09:00 Dr. Lori Fung was present during all critical and valiente portions of the procedure and scrubbed in and immediately available to furnish services during the entire procedure. The retail assistant store manager radiologist was Dr. Jovita Gutierrez. The retail assistant store manager radiologist performed the following procedural tasks: lidocaine administration, core sampling clip placement. Correlation is made to exams dated: 10/27/2023 ultrasound, 10/27/2023 mammogram, 09/29/2023 mammogram - [facility], 2013 stereotactic biopsy, 2013 mammogram - [facility], and 06/08/2013 mammogram - [facility]. An ultrasound guided biopsy using real-time ultrasound was performed for the concerning mass located in the left breast at 9 o'clock 3 cm from the nipple. This was described on the previous mammography and ultrasound reports. The skin was prepped in the usual manner. Local anesthetic was administered to the access site. A skin cody was made in the breast. The abnormality was approached from the caudocranial aspect. A 14 gauge biopsy needle was placed adjacent to the abnormality under ultrasound guidance. Once the needle was documented to be in the correct location, two specimens were obtained using marquee needle. A ribbon clip was inserted into the biopsy cavity. A skin closure strip and a sterile dressing were applied to the access site. Post procedure digital mammographic and ultrasound imaging demonstrates the location device at the targeted area. The specimens were sent to the laboratory for pathological analysis. IMPRESSION: ULTRASOUND GUIDED BIOPSY Ultrasound guided biopsy of the mass in the left breast at 9 o'clock 3 cm from the nipple with placement of a clip was successful with no apparent post procedure complications. Waiting for pathology results. A final report will be issued when these become available. The procedure was reviewed by a staff physician. trena Crespo M.D., D.O./lucina:11/24/2023 18:04:54 Supplier Quality Engineer(s): Hans Cohen(Shirley)(M), [employer]; Santy Villatoro R.D.M.S., [employer] [place] Multiple national specialty organizations have released breast cancer screening guidelines for women at average risk for developing breast cancer - guidelines that are based on both evidence and opinion, yet differ on when to start and how often to screen for breast cancer. With representation from Breast Imaging, Internal Medicine, Women's Health, Family Medicine, and Medical/Surgical Oncology, the [facility] has carefully reviewed the data and reached the following consensus: 1) All women should engage in shared decision-making with their providers to decide when to start and how often to screen; 2) All women should have the opportunity to start screening mammography at age 40; 3) For women ages 45-55, we recommend annual screening mammograms; 4) For women ages 55 and over, we support both the transition from an annual to a biennial interval if this aligns more with patient's values and preferences, or continuation with annual screening; 5) All women should discuss with their providers when to stop screening mammograms. Personal Insurance Advisor: Lucina Transcribe Date/Time: Nov 24 2023 8:17A Dictated by : OLRI FUNG MD This examination was interpreted and the report reviewed and e (more content not included)... [facility] Radiology Study [facility]narrative) [facility] Guid[facility] for [facility] of Br east - leftOrdered By: Araceli Provider on 11-24-2023 [facility] DBT Breast - left diagnostic for implanton 10-27-2023 * * *Final Report* * * DATE OF EXAM: Oct 27 2023 1:40PM [facility] 0628 - [facility] / PROCEDURE REASON: N63.20 Left Breast Mass * * * * Physician Interpretation * * * * #[id number] - [facility] #[id number] - [facility] US BREAST LTD LT UNILATERAL LEFT DIGITAL DIAGNOSTIC MAMMOGRAM TOMOSYNTHESIS WITH CAD: 10/27/2023 HISTORY: / Call back/abnormal mamm: Left N63.20 Left Breast Mass Followup abnormal mammogram. RESULT: TECHNIQUE: The study was acquired using full field digital technology and interpreted from soft copy. Digital Breast Tomosynthesis (DBT) images were obtained and used to assist in the interpretation of this examination. Current study was also evaluated with a Computer Aided Detection (CAD). Comparison is made to exam dated: 09/29/2023 mammogram - [facility]. There are scattered areas of fibroglandular density in the left breast. There is an irregular equal density mass in the left breast inferior medial quadrant anterior depth. This is seen in additional views. No other significant masses or calcifications are seen in the breast. [facility] Provider, Araceli angulo [place] - 10/27/2023 * * *Final Report* * * DATE OF EXAM: Oct 27 2023 1:40PM [facility] 0628 - [facility] DIAG W [facility] LT / PROCEDURE REASON: N63.20 Left Breast Mass * * * * Physician Interpretation * * * * #[id number] - [facility] DI[facility] W [facility] LT #[id number] - [facility] US BREAST LTD LT UNILATERAL LEFT DIGITAL DIAGNOSTIC MAMMOGRAM TOMOSYNTHESIS WITH CAD: 10/27/2023 HISTORY: / Call back/abnormal mamm: Left N63.20 Left Breast Mass Followup abnormal mammogram. RESULT: TECHNIQUE: The study was acquired using full field digital technology and interpreted from soft copy. Digital Breast Tomosynthesis (DBT) images were obtained and used to assist in the interpretation of this examination. Current study was also evaluated with a Computer Aided Detection (CAD). Comparison is made to exam dated: 09/29/2023 [facility]. There are scattered areas of fibroglandular density in the left breast. There is an irregular equal density mass in the left breast inferior medial quadrant anterior depth. This is seen in additional views. No other significant masses or calcifications are seen in the breast. IMPRESSION IMPRESSION: INCOMPLETE: NEEDS ADDITIONAL IMAGING EVALUATION The irregular equal density mass in the left breast is indeterminate. An ultrasound is recommended. LIMITED ULTRASOUND OF LEFT BREAST: 10/27/2023 RESULT: Comparison is made to exam dated: 09/29/2023 [facility] - [facility]. Real-time ultrasound of the left breast was performed. There is a 0.7 cm x 0.5 cm x 0.6 cm lobulated complex cyst in the left breast at 9 o'clock anterior depth. This lobulated complex cyst is anechoic and hypoechoic with posterior acoustic enhancement. This correlates with mammography findings. IMPRESSION: SUSPICIOUS OF MALIGNANCY The 0.7 cm x 0.5 cm x 0.6 cm lobulated complex cyst in the left breast is at a low suspicion for malignancy. An ultrasound guided biopsy is recommended. Evelyne Solis M.D., mc/lucina:10/27/2023 14:17:36 Multiple national specialty organizations have released breast cancer screening guidelines for women at average risk for developing breast cancer - guidelines that are based on both evidence and opinion, yet differ on when to start and how often to screen for breast cancer. With representation from Breast Imaging, Internal Medicine, Women's Health, Family Medicine, and Medical/Surgical Oncology, the [facility] has carefully reviewed the data and reached the following consensus: 1) All women should engage in shared decision-making with their providers to decide when to start and how often to screen; 2) All women should have the opportunity to start screening mammography at age 40; 3) For women ages 45-55, we recommend annual screening mammograms; 4) For women ages 55 and over, we support both the transition from an annual to a biennial interval if this aligns more with patient's values and preferences, or continuation with annual screening; 5) All women should discuss with their providers when to stop screening mammograms. Supplier Quality Engineer(s): Hans Casillas (Shirley)(M), [facility]; [employer], [facility] OVERALL STUDY BIRADS: 4a Suspicious abnormality - low suspicion for malignancy Personal Insurance Advisor: Lucina Transcribe Date/Time: Oct 27 2023 1:18P Dictated by : EVELYNE SOLIS MD This examination was interpreted and the report reviewed and electronically signed by: EVELYNE SOLIS MD on Oct 27 2023 2:17PM [facility] Radiology Study observation (narrative) [facility] W MARCO LTon 024 [facility] DI[facility] LT * * *Final Report* * * DATE OF EXAM: Oct 27 2023 1:40PM [facility] 0628 - [facility] / PROCEDURE REASON: N63.20 Left Breast Mass * * * * Physician Interpretation * * * * #[id number] - [facility] #[id number] - [facility] US BREAST LTD LT UNILATERAL LEFT DIGITAL DIAGNOSTIC MAMMOGRAM TOMOSYNTHESIS WITH CAD: 10/27/2023 HISTORY: / Call back/abnormal mamm: Left N63.20 Left Breast Mass Followup abnormal mammogram. RESULT: TECHNIQUE: The study was acquired using full field digital technology and interpreted from soft copy. Digital Breast Tomosynthesis (DBT) images were obtained and used to assist in the interpretation of this examination. Current study was also evaluated with a Computer Aided Detection (CAD). Comparison is made to exam dated: 09/29/2023 mammogram - [facility]. There are scattered areas of fibroglandular density in the left breast. There is an irregular equal density mass in the left breast inferior medial quadrant anterior depth. This is seen in additional views. No other significant masses or calcifications are seen in the breast. IMPRESSION: INCOMPLETE: NEEDS ADDITIONAL IMAGING EVALUATION The irregular equal density mass in the left breast is indeterminate. An ultrasound is recommended. LIMITED ULTRASOUND OF LEFT BREAST: 10/27/2023 RESULT: Comparison is made to exam dated: 09/29/2023 mammogram - [facility]. Real-time ultrasound of the left breast was performed. There is a 0.7 cm x 0.5 cm x 0.6 cm lobulated complex cyst in the left breast at 9 o'clock anterior depth. This lobulated complex cyst is anechoic and hypoechoic with posterior acoustic enhancement. This correlates with mammography findings. IMPRESSION: SUSPICIOUS OF MALIGNANCY The 0.7 cm x 0.5 cm x 0.6 cm lobulated complex cyst in the left breast is at a low suspicion for malignancy. An ultrasound guided biopsy is recommended. Evelyne Solis M.D., mc/lucina:10/27/2023 14:17:36 Multiple national specialty organizations have released breast cancer screening guidelines for women at average risk for developing breast cancer - guidelines that are based on both evidence and opinion, yet differ on when to start and how often to screen for breast cancer. With representation from Breast Imaging, Internal Medicine, Women's Health, Family Medicine, and Medical/Surgical Oncology, the [facility] has carefully reviewed the data and reached the following consensus: 1) All women should engage in shared decision-making with their providers to decide when to start and how often to screen; 2) All women should have the opportunity to start screening mammography at age 40; 3) For women ages 45-55, we recommend annual screening mammograms; 4) For women ages 55 and over, we support both the transition from an annual to a biennial interval if this aligns more with patient's values and preferences, or continuation with annual screening; 5) All women should discuss with their providers when to stop screening mammograms. Supplier Quality Engineer(s): Hans Casillas (Shirley)(M), [facility]; [employer], [facility] OVERALL STUDY BIRADS: 4a Suspicious abnormality - low suspicion for malignancy Personal Insurance Advisor: Lucina Transcribe Date/Time: Oct 27 2023 1:18P Dictated by : EVELYNE SOLIS MD This examination was interpreted and the report reviewed and electronically signed by: EVELYNE SOLIS MD on Oct 27 2023 2:17PM EST [id number] Normal [facility] US BREAST LTD LTon 10-26 [facility] US BREAST LTD LT * * *Final Report* * * DATE OF EXAM: Oct 27 2023 1:18PM [facility] 0593 - [facility] US BREAST LTD LT / PROCEDURE REASON: N63.20 Left Breast Mass * * * * Physician Interpretation * * * * #[id number] - [facility] DI[facility] W [facility]CO LT #[id number] - [facility] US BREAST LTD LT UNILATERAL LEFT DIGITAL DIAGNOSTIC MAMMOGRAM TOMOSYNTHESIS WITH CAD: 10/27/2023 HISTORY: / Call back/abnormal mamm: Left N63.20 Left Breast Mass Followup abnormal mammogram. RESULT: TECHNIQUE: The study was acquired using full field digital technology and interpreted from soft copy. Digital Breast Tomosynthesis (DBT) images were obtained and used to assist in the interpretation of this examination. Current study was also evaluated with a Computer Aided Detection (CAD). Comparison is made to exam dated: 09/29/2023 [facility]. There are scattered areas of fibroglandular density in the left breast. There is an irregular equal density mass in the left breast inferior medial quadrant anterior depth. This is seen in additional views. No other significant masses or calcifications are seen in the breast. IMPRESSION: INCOMPLETE: NEEDS ADDITIONAL IMAGING EVALUATION The irregular equal density mass in the left breast is indeterminate. An ultrasound is recommended. LIMITED ULTRASOUND OF LEFT BREAST: 10/27/2023 RESULT: [facility] of the left breast was performed. There is a 0.7 cm x 0.5 cm x 0.6 cm lobulated complex cyst in the left breast at 9 o'clock anterior depth. This lobulated complex cyst is anechoic and hypoechoic with posterior acoustic enhancement. This correlates with mammography findings. IMPRESSION: SUSPICIOUS OF MALIGNANCY The 0.7 cm x 0.5 cm x 0.6 cm lobulated complex cyst in the left breast is at a low suspicion for malignancy. An ultrasound guided biopsy is recommended. Evelyne Solis M.D. merlin/lucina:10/27/2023 14:17:36 Multiple national specialty organizations have released breast cancer screening guidelines for women at average risk for developing breast cancer - guidelines that are based on both evidence and opinion, yet differ on when to start and how often to screen for breast cancer. With representation from Breast Imaging, Internal Medicine, Women's Health, Family Medicine, and Medical/Surgical Oncology, the [facility] has carefully reviewed the data and reached the following consensus: 1) All women should engage in shared decision-making with their providers to decide when to start and how often to screen; 2) All women should have the opportunity to start screening mammography at age 40; 3) For women ages 45-55, we recommend annual screening mammograms; 4) For women ages 55 and over, we support both the transition from an annual to a biennial interval if this aligns more with patient's values and preferences, or continuation with annual screening; 5) All women should discuss with their providers when to stop screening mammograms. Supplier Quality Engineer(s): Hans Casillas (R)(M), [facility]; [place] [employer], [facility] OVERALL STUDY BIRADS: 4a Suspicious abnormality - low suspicion for malignancy Personal Insurance Advisor: Lucina Transcribe Date/Time: Oct 27 2023 1:18P Dictated by : EVELYNE SOLIS MD This examination was interpreted and the report reviewed and electronically signed by: EVELYNE SOLIS MD on Oct 27 2023 2:17PM EST [id number] Normal [facility] No Panel InformationOrdered By: Ccf Provider on 10-27-2023 [facility] US Breast - left limitedon 0 10-27-2023 * * *Final Report* * * DATE OF EXAM: Oct 27 2023 1:18PM LDW 0593 - [facility] US BREAST LTD LT / PROCEDURE REASON: N63.20 Left Breast Mass * * * * Physician Interpretation * * * * #[id number] - [facility] DIAG W MARCO LT #[id number] - [facility] US BREAST LTD LT UNILATERAL LEFT DIGITAL DIAGNOSTIC MAMMOGRAM TOMOSYNTHESIS WITH CAD: 10/27/2023 HISTORY: / Call back/abnormal mamm: Left N63.20 Left Breast Mass Followup abnormal mammogram. RESULT: TECHNIQUE: The study was acquired using full field digital technology and interpreted from soft copy. Digital Breast Tomosynthesis (DBT) images were obtained and used to assist in the interpretation of this examination. Current study was also evaluated with a Computer Aided Detection (CAD). Comparison is made to exam dated: 09/29/2023 [facility]. There are scattered areas of fibroglandular density in the left breast. There is an irregular equal density mass in the left breast inferior medial quadrant anterior depth. This is seen in additional views. No other significant masses or calcifications are seen in the breast. [facility] Provider, [facility] [place] - 10/27/2023 * * *Final Report* * * DATE OF EXAM: Oct 27 2023 1:18PM LDW 0593 - [facility] Com[employer]365 BREAST LTD LT / PROCEDURE REASON: N63.20 Left Breast Mass * * * * Physician Interpretation * * * * #[id number] - [facility] DIAG W MARCO LT #[id number] - [facility] [employer] BREAST LTD LT UNILATERAL LEFT DIGITAL DIAGNOSTIC MAMMOGRAM TOMOSYNTHESIS WITH CAD: 10/27/2023 HISTORY: / Call back/abnormal mamm: Left N63.20 Left Breast Mass Followup abnormal mammogram. RESULT: TECHNIQUE: The study was acquired using full field digital technology and interpreted from soft copy. Digital Breast Tomosynthesis (DBT) images were obtained and used to assist in the interpretation of this examination. Current study was also evaluated with a Computer Aided Detection (CAD). Comparison is made to exam dated: 09/29/2023 [facility]. There are scattered areas of fibroglandular density in the left breast. There is an irregular equal density mass in the left breast inferior medial quadrant anterior depth. This is seen in additional views. No other significant masses or calcifications are seen in the breast. IMPRESSION IMPRESSION: INCOMPLETE: NEEDS ADDITIONAL IMAGING EVALUATION The irregular equal density mass in the left breast is indeterminate. An ultrasound is recommended. LIMITED ULTRASOUND OF LEFT BREAST: 10/27/2023 RESULT: Comparison is made to exam dated: 09/29/2023 [facility]. Real-time ultrasound of the left breast was performed. There is a 0.7 cm x 0.5 cm x 0.6 cm lobulated complex cyst in the left breast at 9 o'clock anterior depth. This lobulated complex cyst is anechoic and hypoechoic with posterior acoustic enhancement. This correlates with mammography findings. IMPRESSION: SUSPICIOUS OF MALIGNANCY The 0.7 cm x 0.5 cm x 0.6 cm lobulated complex cyst in the left breast is at a low suspicion for malignancy. An ultrasound guided biopsy is recommended. Evelyne Solis M.D., mc/lucina:10/27/2023 14:17:36 Multiple national specialty organizations have released breast cancer screening guidelines for women at average risk for developing breast cancer - guidelines that are based on both evidence and opinion, yet differ on when to start and how often to screen for breast cancer. With representation from Breast Imaging, Internal Medicine, Women's Health, Family Medicine, and Medical/Surgical Oncology, the [facility] has carefully reviewed the data and reached the following consensus: 1) All women should engage in shared decision-making with their providers to decide when to start and how often to screen; 2) All women should have the opportunity to start screening mammography at age 40; 3) For women ages 45-55, we recommend annual screening mammograms; 4) For women ages 55 and over, we support both the transition from an annual to a biennial interval if this aligns more with patient's values and preferences, or continuation with annual screening; 5) All women should discuss with their providers when to stop screening mammograms. Supplier Quality Engineer(s): Hans Casillas (Shirley)(M), [facility]; [place] [employer], [facility] OVERALL STUDY BIRADS: 4a Suspicious abnormality - low suspicion for malignancy Personal Insurance Advisor: Lucina Transcribe Date/Time: Oct 27 2023 1:18P Dictated by : EVELYNE SOLIS MD This examination was interpreted and the report reviewed and electronically signed by: EVELYNE SOLIS MD on Oct 27 2023 2:17PM EST [facility] Radiology Study observation (narrative) Mukesh charles [facility] Josh 09-30-2023 [facility] HNO ID: [id number] Author: COORDINATOR, MAMMOGRAPHY, ? Service: ? Author Type: Physician Type: Letter Filed: 09/30/2023 09:41 Note Text: [address] [address] September 30, 2023 PID: [id number] Tevin Villagomez [address] [place] [address] Dear Ms. Villagomez, Your recent breast imaging exam on 09/29/2023 showed a possible finding that requires additional imaging studies for a complete evaluation. Most such findings are probably benign (not cancer). If you have a healthcare provider who ordered/prescribed your screening mammogram: Please call [phone] to schedule an appointment for your additional imaging (if you have not already done so). If you DO NOT have a healthcare provider (ie you did not have an order/prescription for your screening mammogram): Please call [phone] to schedule an appointment for your additional imaging (if you have not already done so). You must have an order / prescription from your physician when calling to schedule your appointment. If your order / prescription is not electronic, you must bring the hard copy with you on the day of your exam to avoid rescheduling your exam. Your imaging studies and reports are kept on file at [facility] as part of your permanent medical record, and are available for your continuing care. Thank you for allowing us to help in meeting your health care needs. Sincerely, Dr. Biswas Interpreting Radiologist [facility] (Additional imaging) Normal [facility] DBT Breast - bilateral scree sureshgon 09-29-2023 [facility] SAUNDRA SCREENING W TOMOon 09-28 [facility] SCREENING W MARCO * * *Final Report* * * DATE OF EXAM: Sep 29 2023 9:31AM LDW 0582 - [facility] SCREENING W MARCO / PROCEDURE REASON: Z12.31 Breast screening for cancer by mammogram * * * * Physician Interpretation * * * * #[id number] - [facility] SCREENING W MARCO BILATERAL DIGITAL SCREENING MAMMOGRAM TOMOSYNTHESIS WITH CAD: 09/29/2023 HISTORY: / Screening Mammogram-Patient reports NO symptoms. /SEE TECH NOTE. RESULT: TECHNIQUE: The study was acquired using full field digital technology and interpreted from soft copy. Digital Breast Tomosynthesis (DBT) images were obtained and used to assist in the interpretation of this examination. Current study was also evaluated with a Computer Aided Detection (CAD). Comparison is made to exams dated: 06/08/2013 mammogram, 05/26/2013 mammogram, and 05/11/2012 mammogram - [facility]. There are scattered areas of fibroglandular density. Bilateral breast implants are seen. There are post-biopsy changes in the right breast. There are benign calcifications in both breasts. There is a 9 mm irregular mass with a circumscribed and macrolobulated margin in the left breast at 9 o'clock anterior depth. No other significant masses, calcifications, or other findings are seen in either breast. IMPRESSION: INCOMPLETE: NEEDS ADDITIONAL IMAGING EVALUATION The 9 mm irregular mass in the left breast is indeterminate. An ultrasound is recommended. Zenon montenegro/lucina:09/30/2023 09:41:10 Supplier Quality Engineer(s): Hans Casillas (R)(M), [facility] letter sent: Additional Imaging Needed Mammogram BI-RADS: 0 Incomplete: needs additional imaging evaluation If this report indicates you need additional imaging, and it has NOT yet been performed, please call , to schedule. We sincerely thank you for choosing the [facility] for your breast imaging needs. Multiple national specialty organizations have released breast cancer screening guidelines for women at average risk for developing breast cancer - guidelines that are based on both evidence and opinion, yet differ on when to start and how often to screen for breast cancer. With representation from Breast Imaging, Internal Medicine, Women's Health, Family Medicine, and Medical/Surgical Oncology, the [facility] has carefully reviewed the data and reached the following consensus: 1) All women should engage in shared decision-making with their providers to decide when to start and how often to screen; 2) All women should have the opportunity to start screening mammography at age 40; 3) For women ages 45-55, we recommend annual screening mammograms; 4) For women ages 55 and over, we support both the transition from an annual to a biennial interval if this aligns more with patient's values and preferences, or continuation with annual screening; 5) All women should discuss with their providers when to stop screening mammograms. Personal Insurance Advisor: Lucina Transcribe Date/Time: Sep 29 2023 9:01A Dictated by : ZENON BISWAS MD This examination was interpreted and the report reviewed and electronically signed by: ZENON BISWAS MD on Sep 30 2023 9:41AM EST [id number] Normal [facility] Culture, urineOrdered By: Do ra Ely on 09-14-2023 Bacteria identified Cx Nom (U) Culture exhibits no growth. [facility] Laboratory - Chemistry and C hemistry - challengeon 09-14-2023 Bilirubin Ql (U) Negative [facility] Glucose Ql (U) Negative [facility] Ketones Ql (U) Negative [facility] pH (U) 5.5 [pH] [facility] Specific gravity (U) [Rel density] >1.030 [facility] Urobilinogen (U) [Mass/Vol] 0.9844313 mg/dL [facility] Laboratory - Hematology and Cell countson 09-14-2023 Hemoglobin Ql (U) Negative [facility] Laboratory - Specimen inform ationon 09-14-2023 Clarity (U) Clear [facility] Color (U) MARCIAL [facility] Laboratory - Urinalysison Nitrite Ql (U) Negative [facility] Protein Ql (U) Negative [facility] No Panel Informationon 09-13 Urine Leukocytes Negatve [facility] Urine Non-Hemolyzed Blood [facility] Absolute lymphocyte countOrd ered By: Cande Ely on 09-01-2023 Lymphocytes Auto (Unsp spec) [#/Vol] 2.36 10*3/uL 0.83-4.51 [facility] Automated lymphocyte count a s percentage of total leukocytesOrdered By: Cande Ely on 09-01-2023 Lymphocytes/100 WBC Auto (Unsp spec) 31.9 % 19-41 [facility] Basophil percentageOrdered B y: Cande Ely on 09-01-2023 Basophils/100 WBC (Bld) 0.7 % 0-1 [facility] Bilirubin [Mass/Vol] 0.40 mg/dL 0.20-1.00 [facility] Comment on above: For patients on eltr ombopag therapy, use of Dimension [place] TBIL is not recommended. Chloride [Moles/Vol] 104 mmol/L 98-107 [facility] Cholesterol [Mass/Vol] 233 mg/dL <200 [facility] Comment on above: <200 mg/dL Desirable 200-240 mg/dL Borderline >240 mg/dL High Risk Eosinophils/100 WBC (Bld) 2.2 % 0-5 [facility] Glucose [Mass/Vol] 82 mg/dL 74-106 [facility] Hemoglobin (Bld) [Mass/Vol] 13.2 g/dL 12.0-15.0 [facility] Monocytes/100 WBC (Bld) 7.7 % 0-10 [facility] Neutrophils (Bld) [#/Vol] 4.3 10*3/uL 2.0-7.7 [facility] Neutrophils/100 WBC (Bld) 57.4 % 47-70 [facility] Potassium [Moles/Vol] 4.1 mmol/L 3.5-5.1 [facility] Protein [Mass/Vol] 7.7 g/dL 6.4-8.2 [facility] Sodium [Moles/Vol] 141 mmol/L 136-145 [facility] Triglyceride [Mass/Vol] 154 mg/dL <199 [facility] Comment on above: The drugs N-Acetylcy steine and Metamizole may falsely depress this assay.Serum Triglycerides Reference Interval Normal <150 mg/dL Borderline high 150 - 199 mg/dL High 200 - 499 mg/dL Very High > or = 500 mg/dL WBC (Bld) [#/Vol] 7.4 10*3/uL 4.4-11.0 [facility] Culture, urineOrdered By: Do ra Ely on 09-01-2023 Bacteria identified Cx Nom (U) Escherichia coli [facility] Bacteria identified Cx Nom (U) Klebsiella pneumoniae sp pneum [facility] Determination of erythrocyte mean corpuscular volume (MCV)Ordered By: Cande Ely on 09-01-2023 MCV (RBC) [Entitic vol] 90.2 fL 81-99 [facility] Erythrocyte distribution wid th ratioOrdered By: Cande Ely on 09-01-2023 Erythrocyte distribution width (RBC) [Ratio] 15.2 % 11.6-14.6 [facility] Erythrocyte distribution wid th standard deviationOrdered By: Cande Ely on 09-01-2023 Erythrocyte distribution width (RBC) [Entitic vol] 50.2 fL 35.1-43.9 [facility] Hematocrit Auto (Bld) [Volum e fraction]Ordered By: Cande Ely on 09-01-2023 Hematocrit (Bld) [Volume fraction] 41.6 % 37-47 [facility] Immature granulocytes/100 WB C Auto (Bld)Ordered By: Cande Ely on 09-01-2023 Immature granulocytes/100 WBC (Bld) 0.100 % 0.0-0.9 [facility] Comment on above: IG% - Immature Granu locytes (promyelocytes, myelocytes and metamyelocytes) > 1% indicates that a LEFT SHIFT is Present. Laboratory - Chemistry and C hemistry - challengeOrdered By: Cande Ely on 09-01-2023 Albumin/Globulin [Mass ratio] 1.0 {ratio} 0.9-2.4 [facility] ALP [Catalytic activity/Vol] 152 U/L 45-117 [facility] ALT [Catalytic activity/Vol] 13 U/L 13-56 [facility] Cholesterol in HDL [Mass/Vol] 55 mg/dL >40 [facility] Comment on above: The drugs N-Acetylcy steine and Metamizole may falsely depress this assay. Reference Range HDL <40 mg/dL Low HDL Cholesterol HDL >or= 60 mg/dL High HDL Cholesterol Cholesterol in LDL [Mass/Vol] 147 mg/dL 0-130 [facility] CO2 [Moles/Vol] 30.0 mmol/L 21.0-32.0 [facility] Cobalamin (Vitamin B12) [Mass/Vol] 201 pg/mL 211-911 [facility] Globulin (S) [Mass/Vol] 3.9 g/dL 2.2-4.2 [facility] Magnesium [Mass/Vol] 2.5 mg/dL 1.6-2.6 [facility] Urea nitrogen/Creatinine [Mass ratio] 11.9 mg/mg 10-20 [facility] Laboratory - Chemistry and C hemistry - challengeon 09-01-2023 Bilirubin Ql (U) Negative [facility] Glucose Ql (U) Negative [facility] Ketones Ql (U) Negative [facility] pH (U) 5.5 [pH] [facility] Specific gravity (U) [Rel density] 1.030 [facility] Urobilinogen (U) [Mass/Vol] 0.4953552 mg/dL [facility] Laboratory - Hematology and Cell countsOrdered By: Cande Ely on 09-01-2023 MCH (RBC) [Entitic mass] 28.6 pg 27.0-32.0 [facility] MCHC (RBC) [Mass/Vol] 31.7 g/dL 32-36 [facility] Nucleated RBC/100 WBC (Bld) [Ratio] 0 % 0-5 [facility] Platelet mean volume (Bld) [Entitic vol] 9.4 fL 6.2-12.0 [facility] Platelets (Bld) [#/Vol] 250 10*3/uL 150-450 [facility] Laboratory - Hematology and Cell countson 09-01-2023 Hemoglobin Ql (U) Trace [facility] Laboratory - Specimen inform ationon 09-01-2023 Clarity (U) Clear [facility] Color (U) YELLOW [facility] Laboratory - Urinalysison Nitrite Ql (U) Positive [facility] Protein Ql (U) Negative [facility] No Panel InformationOrdered By: Cande Ely on 09-01-2023 Estimated GFR (MDRD) Amer 64 mL/min >60 [facility] Comment on above: GFR Calc Estimated GFR (MDRD) Non-Af Amer 53 mL/min >60 [facility] Comment on above: Non- GFR Calc Folate 2.50 ng/mL 3.1-55.4 [facility] Vitamin B6 Level 4.2 ug/L 3.4-65.2 [facility] Comment on above: Deficiency: <3.4 Mar ginal: 3.4 - 5.1 Adequate: >5.1 VLDL Cholesterol 31 mg/dL 5-40 [facility] No Panel Informationon 08-31 Urine Leukocytes Positive [facility] Urine Non-Hemolyzed Blood [facility] RBC Auto (Bld) [#/Vol]Ordere d By: Cande Ely on 09-01-2023 RBC (Bld) [#/Vol] 4.61 10*6/uL 4.2-5.4 [facility] Serum Treponema pallidum ant ibody detection by immunofluorescenceOrdered By: Cande Ely on 09-01-2023 T. pallidum Ab IF Ql (S) Non-Reactive Non Reactive [facility] Comment on above: Performed at: [facility] [address] [id number] Director: Julia Huggins MD, Phone: [phone] at: [facility] [id number] [place], [place] [id number] Director: Celestino Garrido PhD, Phone: [phone] Serum or plasma calcium deja urement (mass/volume)Ordered By: Cande Ely on 09-01-2023 Calcium [Mass/Vol] 9.3 mg/dL 8.5-10.1 [facility] Serum or plasma creatinine m easurement (mass/volume)Ordered By: Cande Ely on 09-01-2023 Creatinine [Mass/Vol] 1.09 mg/dL 0.55-1.02 [facility] Comment on above: The validity of the calculated GFR & GFRAA in patients over 70 years has not been determined. Clinical correlation is essential. Serum or plasma thyroid stim ulating hormone (TSH) measurement (units/volume)Ordered By: Cande Ely on 09-01-2023 TSH Qn 3.76 uIU/mL 0.358-3.74 [facility] Serum or plasma urea nitroge n measurement (mass/volume)Ordered By: Cande Ely on 09-01-2023 Urea nitrogen [Mass/Vol] 13 mg/dL 7-18 [facility] Thin prep Papanicolaou smear with manual screeningOrdered By: Cande Ely on 09-01-2023 Thin prep Papanicolaou smear with manual screening 3.8 g/dL 3.2-5.0 [facility] Thin prep Papanicolaou smear with manual screening 17 U/L 15-37 [facility] Thin prep Papanicolaou smear with manual screening 7 5-15 [facility] Absolute lymphocyte countOrd ered By: Cande Ely on 09-24-2022 Lymphocytes Auto (Unsp spec) [#/Vol] 2.69 10*3/uL 0.83-4.51 [facility] Basophil percentageOrdered B y: Cande Ely on 09-24-2022 Basophils/100 WBC (Bld) 0.4 % 0-1 [facility] Bilirubin [Mass/Vol] 0.40 mg/dL 0.20-1.00 [facility] Comment on above: For patients on eltr ombopag therapy, use of [employer] [place] TBIL is not recommended. Chloride [Moles/Vol] 103 mmol/L 98-107 [facility] Cholesterol [Mass/Vol] 200 mg/dL <200 [facility] Comment on above: <200 mg/dL Desirable 200-240 mg/dL Borderline >240 mg/dL High Risk Eosinophils/100 WBC (Bld) 2.4 % 0-5 [facility] Glucose [Mass/Vol] 90 mg/dL 74-106 [facility] Neutrophils (Bld) [#/Vol] 4.3 10*3/uL 2.0-7.7 [facility] Neutrophils/100 WBC (Bld) 55.1 % 47-70 [facility] Potassium [Moles/Vol] 4.0 mmol/L 3.5-5.1 [facility] Protein [Mass/Vol] 7.5 g/dL 6.4-8.2 [facility] Sodium [Moles/Vol] 136 mmol/L 136-145 [facility] Triglyceride [Mass/Vol] 81 mg/dL <199 [facility] Comment on above: The drugs N-Acetylcy steine and Metamizole may falsely depress this assay.Serum Triglycerides Reference Interval Normal <150 mg/dL Borderline high 150 - 199 mg/dL High 200 - 499 mg/dL Very High > or = 500 mg/dL WBC (Bld) [#/Vol] 7.8 10*3/uL 4.4-11.0 [facility] Blood erythrocytes count (nu mber/volume)Ordered By: Cande Ely on 09-24-2022 RBC (Bld) [#/Vol] 4.54 10*6/uL 4.2-5.4 [facility] Blood hemoglobin measurement (mass/volume)Ordered By: Cande Ely on 09-24-2022 Hemoglobin (Bld) [Mass/Vol] 13.1 g/dL 12.0-15.0 [facility] Blood lymphocytes/100 leukoc ytesOrdered By: Cande Ely on 09-24-2022 Lymphocytes/100 WBC (Bld) 34.4 % 19-41 [facility] Blood monocytes/100 leukocyt esOrdered By: Cande Ely on 09-24-2022 Monocytes/100 WBC (Bld) 7.6 % 0-10 [facility] Blood platelet mean volumeOr dered By: Cande Ely on 09-24-2022 Platelet mean volume (Bld) [Entitic vol] 9.9 fL 6.2-12.0 [facility] Determination of erythrocyte mean corpuscular volume (MCV)Ordered By: Cande Ely on 09-24-2022 MCV (RBC) [Entitic vol] 87.7 fL 81-99 [facility] Hematocrit Auto (Bld) [Volum e fraction]Ordered By: Cande Ely on 09-24-2022 Hematocrit (Bld) [Volume fraction] 39.8 % 37-47 [facility] Laboratory - Chemistry and C hemistry - challengeOrdered By: Cande Ely on 09-24-2022 ALP [Catalytic activity/Vol] 123 U/L 45-117 [facility] ALT [Catalytic activity/Vol] 18 U/L 13-56 [facility] CO2 [Moles/Vol] 27.0 mmol/L 21.0-32.0 [facility] Globulin (S) [Mass/Vol] 4.0 g/dL 2.2-4.2 [facility] Urea nitrogen/Creatinine [Mass ratio] 16.1 mg/mg 10-20 [facility] Laboratory - Hematology and Cell countsOrdered By: Cande Ely on 09-24-2022 Erythrocyte distribution width (RBC) [Entitic vol] 42.5 fL 35.1-43.9 [facility] Erythrocyte distribution width (RBC) [Ratio] 13.2 % 11.6-14.6 [facility] Immature granulocytes/100 WBC (Bld) 0.100 % 0.0-0.9 [facility] [facility] Comment on above: IG% - Immature Granu locytes (promyelocytes, myelocytes and metamyelocytes) > 1% indicates that a LEFT SHIFT is Present. MCH (RBC) [Entitic mass] 28.9 pg 27.0-32.0 [facility] Nucleated RBC/100 WBC (Bld) [Ratio] 0 % 0-5 [facility] MCHC Auto (RBC) [Mass/Vol]Or dered By: Cande Ely on 09-24-2022 MCHC (RBC) [Mass/Vol] 32.9 g/dL 32-36 [facility] No Panel InformationOrdered By: Cande Ely on 09-24-2022 Estimated GFR (MDRD) Amer 77 mL/min >60 [facility] Comment on above: GFR Calc Estimated GFR (MDRD) Non-Af Amer 64 mL/min >60 [facility] Comment on above: Non- GFR Calc Thyroid Stimulating Hormone (TSH) 2.06 uIU/mL 0.358-3.74 [facility] Platelets bldOrdered By: Ángel Ely on 09-24-2022 Platelets (Bld) [#/Vol] 253 10*3/uL 150-450 [facility] Serum or plasma albumin deja urement (mass/volume)Ordered By: Cande Ely on 09-24-2022 Albumin [Mass/Vol] 3.5 g/dL 3.2-5.0 [facility] Serum or plasma albumin/glob ulin mass ratioOrdered By: Cande Ely on 09-24-2022 Albumin/Globulin [Mass ratio] 0.9 {ratio} 0.9-2.4 [facility] Serum or plasma calcium deja urement (mass/volume)Ordered By: Cande Ely on 09-24-2022 Calcium [Mass/Vol] 9.6 mg/dL 8.5-10.1 [facility] Serum or plasma cholesterol in HDL measurement (mass/volume)Ordered By: Cande Ely on 09-24-2022 Cholesterol in HDL [Mass/Vol] 46 mg/dL >40 [facility] Comment on above: The drugs N-Acetylcy steine and Metamizole may falsely depress this assay. Reference Range HDL <40 mg/dL Low HDL Cholesterol HDL >or= 60 mg/dL High HDL Cholesterol Serum or plasma cholesterol in VLDL measurement (mass/volume)Ordered By: Cande lEy on 09-24-2022 Cholesterol in VLDL [Mass/Vol] 16 mg/dL 5-40 [facility] Serum or plasma creatinine m easurement (mass/volume)Ordered By: Cande Ely on 09-24-2022 Creatinine [Mass/Vol] 0.93 mg/dL 0.55-1.02 [facility] Comment on above: The validity of the calculated GFR & GFRAA in patients over 70 years has not been determined. Clinical correlation is essential. Serum or plasma low density lipoprotein (LDL) cholesterol measurement (mass/volume)Ordered By: Cande Ely on 09-24-2022 Cholesterol in LDL [Mass/Vol] 138 mg/dL 0-130 [facility] Serum or plasma urea nitroge n measurement (mass/volume)Ordered By: Cande Ely on 09-24-2022 Urea nitrogen [Mass/Vol] 15 mg/dL 7-18 [facility] Thin prep Papanicolaou smear with manual screeningOrdered By: Cande Ely on 09-24-2022 Thin prep Papanicolaou smear with manual screening 20 U/L 15-37 [facility] Thin prep Papanicolaou smear with manual screening 6 5-15 [facility] CBC panel Auto (Bld)on 06-18 Erythrocyte distribution width (RBC) [Ratio] 13.6 % 11.5 - 15.0 % [facility] Hematocrit (Bld) [Volume fraction] 41.8 % 36.0 - 46.0 % [facility] Hemoglobin (Bld) [Mass/Vol] 13.8 g/dL 11.5 - 15.5 g/dL [facility] MCH (RBC) [Entitic mass] 29.7 pg 26. 0 - 34.0 pg [facility] MCHC (RBC) [Mass/Vol] 33.0 g/dL 30.5 - 36.0 g/dL [facility] MCV (RBC) [Entitic vol] 89.9 fL 80.0 - 100.0 fL [facility] Nucleated RBC (Bld) [#/Vol] <0.01 k/uL [facility] Platelet mean volume (Bld) [Entitic vol] 9.6 fL 9.0 - 12.7 fL [facility] Platelets (Bld) [#/Vol] 289 10*3/uL 150 - 400 k/uL [facility] RBC (Bld) [#/Vol] 4.65 10*6/uL 3.90 - 5.20 m/uL [facility] WBC (Bld) [#/Vol] 12.27 10*3/uL High 3.70 - 11.00 k/uL [facility] Comprehensive metabolic 2000 panelon 06-18-2022 Albumin [Mass/Vol] 3.6 g/dL Low 3.9 - 4.9 g/dL [facility] ALP [Catalytic activity/Vol] 115 U/L 34 - 123 U/L [facility] ALT [Catalytic activity/Vol] 7 U/L 7 - 38 U/L [facility] Anion gap [Moles/Vol] 12 mmol/L 9 - 18 mmol/L [facility] AST [Catalytic activity/Vol] 15 U/L 13 - 35 U/L [facility] Bilirubin [Mass/Vol] 0.6 mg/dL 0.2 - 1 .3 mg/dL [facility] Calcium [Mass/Vol] 9.2 mg/dL 8.5 - 10. 2 mg/dL [facility] Chloride [Moles/Vol] 97 mmol/L 97 - 10 5 mmol/L [facility] CO2 [Moles/Vol] 26 mmol/L 22 - 30 mmol/L [facility] Creatinine [Mass/Vol] 0.73 mg/dL 0.58 - 0.96 mg/dL [facility] Estimated Glomerular Filtration Rate 90 mL/min/1.73m >=60 mL/min/1.7 3m [facility] Glucose [Mass/Vol] 103 mg/dL High 74 - 99 mg/dL [facility] Potassium [Moles/Vol] 4.1 mmol/L 3.7 - 5.1 mmol/L [facility] Protein [Mass/Vol] 7.3 g/dL 6.3 - 8.0 g/dL [facility] Sodium [Moles/Vol] 135 mmol/L Low 136 - 144 mmol/L [facility] Urea nitrogen [Mass/Vol] 10 mg/dL 7 - 21 mg/dL [facility] Absolute lymphocyte counton 06-19-2021 Lymphocytes Auto (Unsp spec) [#/Vol] 2.64 10*3/uL 0.83-4.51 [facility] Work Phone: Basophil percentageon 2020 Bilirubin [Mass/Vol] 0.20 mg/dL 0.20-1.00 [facility] Work Phone: Comment on above: For patients on eltr ombopag therapy, use of [employer] [place] TBIL is not recommended. Chloride [Moles/Vol] 109 mmol/L 98-107 [facility] Work Phone: Eosinophils/100 WBC (Bld) 2.6 % 0-5 [facility] Work Phone: Glucose [Mass/Vol] 98 mg/dL 74-106 [facility] Work Phone: Comment on above: Please note revised GLUCOSE reference range effective 2017. Neutrophils (Bld) [#/Vol] 4.3 10*3/uL 2.0-7.7 [facility] Work Phone: Potassium [Moles/Vol] 4.2 mmol/L 3.5-5.1 [facility] Work Phone: [phone] Protein [Mass/Vol] 7.7 g/dL 6.4-8.2 [facility] Work Phone: Sodium [Moles/Vol] 141 mmol/L 136-145 [facility] Work Phone: WBC (Bld) [#/Vol] 7.8 10*3/uL 4.4-11.0 [facility] Work Phone: Blood erythrocytes count (nu mber/volume)on 06-19-2021 RBC (Bld) [#/Vol] 4.72 10*6/uL 4.2-5.4 [facility] Work Phone: Blood hemoglobin measurement (mass/volume)on 06-19-2021 Hemoglobin (Bld) [Mass/Vol] 14.1 g/dL 12.0-15.0 [facility] Work Phone: Blood lymphocytes/100 leukoc yteson 06-19-2021 Lymphocytes/100 WBC (Bld) 33.9 % 19-41 [facility] Work Phone: Blood monocytes/100 leukocyt eson 06-19-2021 Monocytes/100 WBC (Bld) 7.2 % 0-10 [facility] Work Phone: Blood platelet mean volumeon 06-19-2021 Platelet mean volume (Bld) [Entitic vol] 9.2 fL 6.2-12.0 [facility] Work Phone: Determination of erythrocyte mean corpuscular volume (MCV)on 06-19-2021 MCV (RBC) [Entitic vol] 93.2 fL 81-99 [facility] Work Phone: Hematocrit Auto (Bld) [Volum e fraction]on 06-19-2021 Hematocrit (Bld) [Volume fraction] 44.0 % 37-47 [facility] Work Phone: Laboratory - Chemistry and C hemistry - challengeon 06-19-2021 ALP [Catalytic activity/Vol] 152 U/L 45-117 [facility] Work Phone: ALT [Catalytic activity/Vol] 18 U/L 13-56 [facility] Work Phone: CO2 [Moles/Vol] 28.0 mmol/L 21.0-32.0 [facility] Work Phone: Cobalamin (Vitamin B12) [Mass/Vol] 169 pg/mL 211-911 [facility] Work Phone: Free T4 [Mass/Vol] 0.82 ng/dL 0.76-1.46 [facility] Work Phone: Globulin (S) [Mass/Vol] 4.3 g/dL 2.2-4.2 [facility] Work Phone: Urea nitrogen/Creatinine [Mass ratio] 13.3 mg/mg 10-20 [facility] Work Phone: Laboratory - Hematology and Cell countson 06-19-2021 Basophils/100 WBC (Unsp spec) 0.5 % 0-1 [facility] Work Phone: [phone] Erythrocyte distribution width (RBC) [Entitic vol] 47.8 fL 35.1-43.9 [facility] Work Phone: [phone] Erythrocyte distribution width (RBC) [Ratio] 13.9 % 11.6-14.6 [facility] Work Phone: [phone] Immature granulocytes/100 WBC (Bld) 0.300 % 0.0-0.9 [facility] Work Phone: [phone] Comment on above: IG% - Immature Granu locytes (promyelocytes, myelocytes and metamyelocytes) > 1% indicates that a LEFT SHIFT is Present. MCH (RBC) [Entitic mass] 29.9 pg 27.0-32.0 [facility] Work Phone: [phone] Neutrophils/100 WBC (Bld) 55.5 % 47-70 [facility] Work Phone: [phone] Nucleated RBC/100 WBC (Bld) [Ratio] 0 % 0-5 [facility] Work Phone: [phone] MCHC Auto (RBC) [Mass/Vol]on 06-19-2021 MCHC (RBC) [Mass/Vol] 32.0 g/dL 32-36 [facility] Work Phone: [phone] No Panel Informationon 06-19 C-Reactive Protein High Sensitivity 8.07 mg/L [facility] Work Phone: [phone] Comment on above: Low Relative Risk of CVD <1.0 mg/L Average Relative Risk of CVD 1.0 - 3.0 mg/L High Relative Risk of CVD >3.0 mg/L Estimated GFR (MDRD) Amer 73 mL/min >60 [facility] Work Phone: [phone] Comment on above: GFR Calc Estimated GFR (MDRD) Non-Af Amer 60 mL/min >60 [facility] Work Phone: [phone] Comment on above: Non- GFR Calc Thyroid Stimulating Hormone (TSH) 3.37 uIU/mL 0.358-3.74 [facility] Work Phone: [phone] Platelets bldon 06-19-2021 Platelets (Bld) [#/Vol] 224 10*3/uL 150-450 [facility] Work Phone: Serum or plasma albumin deja urement (mass/volume)on 06-19-2021 Albumin [Mass/Vol] 3.4 g/dL 3.2-5.0 [facility] Work Phone: [phone] Serum or plasma albumin/glob ulin mass ratioon 06-19-2021 Albumin/Globulin [Mass ratio] 0.8 {ratio} 0.9-2.4 [facility] Work Phone: [phone] Serum or plasma calcitriol m easurement (mass/volume)on 06-19-2021 1,25-dihydroxyvitamin D3 [Mass/Vol] 53.5 pg/mL [facility] Work Phone: Comment on above: Performed at: [facility] [address] [id number] Director: Julia Huggins MD, Phone: [phone] Serum or plasma calcium deja urement (mass/volume)on 06-19-2021 Calcium [Mass/Vol] 9.0 mg/dL 8.5-10.1 [facility] Work Phone: Serum or plasma creatinine m easurement (mass/volume)on 06-19-2021 Creatinine [Mass/Vol] 0.98 mg/dL 0.55-1.02 [facility] Work Phone: Comment on above: The validity of the calculated GFR & GFRAA in patients over 70 years has not been determined. Clinical correlation is essential. Serum or plasma urea nitroge n measurement (mass/volume)on 06-19-2021 Urea nitrogen [Mass/Vol] 13 mg/dL 7-18 [facility] Work Phone: [phone] Thin prep Papanicolaou smear with manual screeningon 06-19-2021 Thin prep Papanicolaou smear with manual screening 18 U/L 15-37 [facility] Work Phone: [phone] Thin prep Papanicolaou smear with manual screening 4 5-15 [facility] Work Phone: Basic Metabolic Panelon 02-0 Calcium [Mass/Vol] 9.2 mg/dL Normal 8.4-10.4 [facility] Comment on above: Performed By: #### H EMDF, CRP2, BMP3, ESR #### [facility] [address], [place] Anion gap [Moles/Vol] 7 Normal [facility] Comment on above: Performed By: #### H EMDF, CRP2, BMP3, ESR #### [place] [address], [place] CO2 [Moles/Vol] 26 mmol/L Normal 22-30 [facility] Comment on above: Performed By: #### H EMDF, CRP2, BMP3, ESR #### [place] [address], [place] Creatinine [Mass/Vol] 0.82 mg/dL Normal 0.52-1.25 [facility] Comment on above: Performed By: #### H EMDF, CRP2, BMP3, ESR #### [place] [address], [place] GFR/1.73 sq M predicted among blacks MDRD (S/P/Bld) [Vol rate/Area] mL/min/{1.73_m2} Normal >60 [facility] Comment on above: Performed By: #### H EMDF, CRP2, BMP3, ESR #### [place] [address], [place] GFR/1.73 sq M predicted among non-blacks MDRD (S/P/Bld) [Vol rate/Area] mL/min/{1.73_m2} Normal >60 [facility] Comment on above: Result Comment: Sour ce- MDRD equation with creatinine calibration to IDMS(NKDEP) eGFR not recommended for drug dose adjustment Performed By: #### H EMDF, CRP2, BMP3, ESR #### [place] [address], [place] Glucose [Mass/Vol] 105 mg/dL High 70-100 [facility] Comment on above: Performed By: #### H EMDF, CRP2, BMP3, ESR #### [facility] [address], [place] Urea nitrogen [Mass/Vol] 11 mg/dL Normal 7-20 [facility] Comment on above: Performed By: #### H EMDF, CRP2, BMP3, ESR #### [facility] [address], [place] Chloride [Moles/Vol] 106 mmol/L Normal 98-107 [facility] Comment on above: Performed By: #### H EMDF, CRP2, BMP3, ESR #### [place] [address], [place] Potassium [Moles/Vol] 3.9 mmol/L Normal 3.5-5.1 [facility] Comment on above: Performed By: #### H EMDF, CRP2, BMP3, ESR #### [place] [address], [place] Sodium [Moles/Vol] 139 mmol/L Normal 135-145 [facility] Comment on above: Performed By: #### H EMDF, CRP2, BMP3, ESR #### [facility] [address] [place], [place] C-Reactive Proteinon 019 CRP [Mass/Vol] 47.3 mg/L High 0.0-6.0 [facility] Comment on above: Result Comment: . Performed By: #### H EMDF, CRP2, BMP3, ESR #### [facility] [address] [place], [place] CT Soft Tissue Neck w/ Contr su 07-25-2018 CT Soft Tissue Neck w/ Contrast Patient Name: TEVIN VILLAGOMEZ CT Exam Date/Time 07/25/2018 18:05:[address] Soft Tissue Neck w/ Contrast Ordering Physician HOMA CARRANZA NICOLE A Accession Number [id number] CPT4 Codes 39472 (), Q9967 (CT ISOVUE 370MG/[id number]) Reason For Exam s/p cervical spine fusion 6 years ago c/o neck stiffness and worsening pain Report CT OF THE NECK SOFT TISSUES WITH IV CONTRAST CLINICAL INDICATION: s/p cervical spine fusion 6 years ago c/o neck stiffness and worsening pain TECHNIQUE: CT of the neck soft tissues with IV contrast. Multiplanar reformations. COMPARISON: None FINDINGS: Limited scans through the upper chest are unremarkable. Normal appearance of the thyroid gland. Normal appearance of the larynx. There is some fullness in the right vallecula. Epiglottis and aryepiglottic folds appear normal. Piriform sinuses appear normal. Normal appearance of the airway. Prevertebral soft tissues appear normal. No adenopathy seen. No abscess. Status post ACDF C4-C6. Severe disc space narrowing C6-7. Some endplate spurring noted at this level worse on the left. IMPRESSION: 1. Some fullness in the vallecula on the right. Recommend direct visualization. 2. ACDF C4-C6. Severe disc space narrowing with some endplate spurring C6-7. Report Dictated on Final Dictated: 07/25/2018 6:33 pm Dictating Physician: MD VILA JOHN R Signed Date and Time: 07/25/2018 6:41 pm Signed by: MD VILA JOHN R Transcribed Date and Time: 07/25/2018 6:33 Normal [facility] ED Provider Noteon 07-25- 9 ED Provider Note Emergency Department Encounter [facility] EMERGENCY DEPT Patient: Tevin Villagomez : 1955 Date of Evaluation: 07/25/2018 ED Supervising Physician: Blas Briseno MD I independently examined and evaluated Tevin Villagomez. In brief, Tevin Villagomez is a 63 y.o. female that presents to the emergency department with severe atraumatic neck pain. Patient unable to range neck. Is not present for 3 days. No fevers no immunosuppression. No numbness no weakness. No other complaints. No sore throat. Patient is not on blood thinners. Focused exam: Patient's awake alert well-appearing. Vitals are stable. Patient's neurologically intact. Brief ED course/MDM: Patient's 63-year-old presenting with neck pain. Vitals are stable. Patient's neurologically intact. Patient has a unremarkable physical exam except for the fact patient has a lot of difficulty ranging her neck. When age severe pain with no obvious source plan to complete computed tomography scan look for fracture or misalignment of her hardware and signs of infection. If everything is Normal she is follow up in 2 days with orthopedic surgery and she will be safe for discharge. 7:[address] is unremarkable. Patient does have some vallecular fullness but exam has no pain with swallowing stridor or difficulty swallowing. Unsure what the swelling is below suspicion for infectious given no signs or symptoms of infection. We will give patient ENT follow-up for close reevaluation and possible scope to evaluate for cancer other swelling/mass. Patient stable for discharge. All diagnostic, treatment, and disposition decisions were made by myself in conjunction with the [facility]. For all further details of the patient's emergency department visit, please see their documentation. (Please note that portions of this note may have been completed with a voice recognition program. Efforts were made to edit the dictations but occasionally words are mis-transcribed.) Blas Briseno MD Acute Care [facility] Blas Briseno MD 07/25/18 1746 Blas Briseno MD 07/25/18 1934 [facility] ED [facility] Patient: Tevin Villagomez : 1955 Date of Evaluation: 07/25/2018 ED [facility] Provider: Keke Carranza APRN - CLERK OF SCALES ED care was supervised by Dr. Briseno who independently examined and evaluated the patient. Please see their attestation note for further details. Chief Complaint Chief Complaint Patient presents with ? Neck Pain pt states she has history of neck problems with surgical procedures occuring. pt states that pain began on thursday. pt resting quietly in triage, nad noted. pt awake, alert and oriented x4. BRIAN Villagomez is a 63 y.o. female who presents to the emergency department with worsening neck pain since last Thursday. The patient denies any injury. She reports a history of a cervical neck fusion by Dr. Hans Ferguson, approximately 6-8 years ago. She states that she has an appointment scheduled for this Thursday but was unable to wait that long. She denies any fever or chills. No numbness, tingling or weakness. She states that she has worsening pain with lateral neck movements and reports stiffness. She localizes pain to her occipital scalp, posterior and lateral neck, and upper trapezius region, bilaterally. She denies any history of IV drug use. No difficulty breathing or swallowing, although she does report pain with swallowing at times when asked about this. No self treatment prior to arrival. The patient has no other medicalcomplaints. Review of systems otherwise negative. ROS: Review of Systems At least 10 systems reviewed and otherwise acutely negative except as in the [place]. Past History History reviewed. No pertinent past medical history. History reviewed. No pertinent surgical history. Social History Social History ? Marital status: Spouse name: N/A ? Number of children: N/A ? Years of education: N/A Social History Main Topics ? Smoking status: Never Smoker ? Smokeless tobacco: Never Used ? Alcohol use None ? Drug use: Unknown ? Sexual activity: Not Asked Other Topics Concern ? None Social History Narrative ? None Medications/Allergies Discharge Medication List as of 07/25/2018 7:30 PM No Known Allergies Physical Exam ED Triage Vitals [07/25/18 1419] BP Temp Temp Source Pulse Resp SpO2 Height Weight 128/88 97.4 ?F (36.3 ?C) Oral 98 18 95 % -- -- Physical Exam General: No apparent distress, answers questions appropriately HEENT: Normocephalic atraumatic, sclera white. PERRL. Tympanic membranes unremarkable. No ear drainage or canal swelling. Nose patent bilaterally -No drainage. Mucous membranes pink and moist. No tonsillar edema/erythema/exudate. Uvula midline. No trismus or drooling. No oral swelling noted. Patient speaks clear sentences without difficulty. Neck: Supple. Trachea midline. No midline spinal tenderness. No evidence of spinal trauma or infection. + Cervical paraspinal tenderness. + Pain with lateral neck movements and chin to chest. Lungs: Clear to auscultation bilaterally. No use of accessory muscles. Heart: Regular rate and rhythm. No obvious murmur. Abdomen: Soft, nontender Back: +Bilateral upper trapezius tenderness- no skin changes or evidence of trauma. No midline spinal tenderness. No evidence of spinal trauma or infection. Extremities: No clubbing, cyanosis or edema. Equal strength and sensation of the upper and lower extremities. Neurovascular intact. No evidence of septic joint. Neuro: No motor/sensory or focal deficits. Psych: Normal affect. Calm and cooperative. Skin: Normal temp. No acute rash. Diagnostics Labs: Results for orders placed or performed during the hospital encounter of 07/25/18 Hemogram (CBC) w/Auto Diff Result Value Ref Range WBC 11.0 (H) 3.6 - 10.7 10*3/uL RBC 4.36 3.80 - 5.20 10*6/uL Hemoglobin 12.9 11.7 - 16.0 g/dL Hematocrit 38.7 35.0 - 47.0 % MCV 88.9 79.0 - 98.0 fL MCH 29.6 26.0 - 34.0 pg MCHC 33.3 32.0 - 36.0 % RDW 14.3 11.5 - 14.5 % Platelets 258 140 - 440 10*3/uL MPV 6.7 (L) 7.4 - 10.4 fL Granulocytes % 69.9 40.0 - 80.0 % Lymphocyte % 21.0 20.0 - 40.0 % Monocytes 7.3 2.0 - 10.0 % Eosinophils 1.2 1.0 - 6.0 % Basophils 0.6 0.0 - 2.0 % Absolute Neut # 7.7 (H) 1.8 - 7.0 10*3/uL Absolute Lymph # 2.3 1.0 - 4.3 10*3/uL Absolute [place] # 0.8 0.0 - 0.8 10*3/uL Absolute Eos # 0.1 0.0 - 0.5 10*3/uL Absolute Baso # 0.1 0.0 - 0.2 10*3/uL Basic Metabolic Panel Result Value Ref Range Sodium 139 135 - 145 mmol/L Potassium 3.9 3.5 - 5.1 mmol/L Chloride 106 98 - 107 mmol/L CO2 26 22 - 30 mmol/L Anion Gap 7 NA Glucose 105 (H) 70 - 100 mg/dL BUN 11 7 - 20 mg/dL CREATININE 0.82 0.52 - 1.25 mg/dL eGFR >60.0 >60 mL/min EGFR IF NonAfrican Panamanian >60.0 >60 mL/min Calcium 9.2 8.4 - 10.4 mg/dL Sedimentation Rate Result Value Ref Range Sed Rate 35 (H) 0 - 20 mm/h C-Reactive Protein Result Value Ref Range CRP 47.3 (H) 0.0 - 6.0 mg/L Radiographs: Ct Soft Tissue Neck W Contrast Result Date: 07/25/2018 Patient Name: TEVIN VILLAGOMEZ ---CT--- Exam Date/Time 07/25/2018 18:05:[address] Soft Tissue Neck w/ Contrast Ordering Physician HOMA CARRANZA NICOLE A Accession Number [id number] CPT4 Codes 90966 (), Q9967 (CT ISOVUE [id number]/[id number]) Reason For Exam s/p cervical spine fusion 6 years ago c/o neck stiffness and worsening pain Report CT OF THE NECK SOFT TISSUES WITH IV CONTRAST CLINICAL INDICATION: s/p cervical spine fusion 6 years ago c/o neck stiffness and worsening pain TECHNIQUE: CT of the neck soft tissues with IV contrast. Multiplanar reformations. COMPARISON: None FINDINGS: Limited scans through the upper chest are unremarkable. Normal appearance of the thyroid gland. Normal appearance of the larynx. There is some fullness in the right vallecula. Epiglottis and aryepiglottic folds appear normal. Piriform sinuses appear normal. Normal appearance of the airway. Prevertebral soft tissues appear normal. No adenopathy seen. No abscess. Status post ACDF C4-C6. Severe disc space narrowing C6-7. Some endplate spurring noted at this level worse on the left. IMPRESSION: 1. Some fullness in the vallecula on the right. Recommend direct visualization. 2. ACDF C4-C6. Severe disc space narrowing with some endplate spurring C6-7. Report Dictated on --- Final --- Dictated: 07/25/2018 6:33 pmDictating Physician: MD VILA JOHN R Signed Date and Time: 07/25/2018 6:41 pm Signed by: MD VILA JOHN R Transcribed Date and Time: 07/25/2018 6:33 ED Course and MDM This patient's case was staffed with Dr. Briseno - see attending note for further details.Patient was hydrated with IV normal saline and medicated with IM Norflex and IV Toradol for pain. See lab results and diagnostic reports. CT findings discussed with the patient, recommend close follow-up with ENT. There is no evidence of intraoral swelling, no stridor or dysphagia. The patient was advised to return to the emergency department immediately with any worsening symptoms. On reexam, the patient had some improvement. At this point, the patient will be discharged from the emergency department. She is in stable condition and in agreement with treatment plan. Recommend follow-up with a primary medical doctor in 3-5 days. Patient was advised to follow-up with her spinal surgeon, Dr. Ferguson as scheduled on Thursday. Recommended naproxen twice a day when necessary. Flexeril 10 mg 3 times a day when necessary. Patient provided instructions to return to the emergency department with any new concerns or if condition worsens. ED Medication Orders Start Ordered Status Ordering Provider 07/25/18 1645 07/25/18 1630 0.9 % sodium chloride bolus ONCE Last AUG action: Stopped - by CLARKE WEINSTEIN on 07/25/18 at 1926 KEKE CARRANZA 07/25/18 1615 07/25/18 1601 orphenadrine (NORFLEX) injection 60 mg ONCE Last AUG action: Given - by RUPA ARNDT on 07/25/18 at 1607 KEKE CARRANZA 07/25/18 1615 07/25/18 1601 ibuprofen (ADVIL;MOTRIN) tablet 600 mg ONCE Last AUG action: Given - by RUPA ARNDT on 07/25/18 at 1606 KEKE CARRANZA Final Impression 1. Neck pain 2. Torticollis DISPOSITION Decision To Discharge 07/25/2018 07:24:32 PM (Please note that portions of this note may have been completed with a voice recognition program. Efforts were made to edit the dictations but occasionally words aremis-transcribed.) AUBREY Barrera CNP [employer] AUBREY Barrera CNP 07/26/18 1626 Normal [facility] [employer] Hemogram w/ Autodiffon 07-25 Abs Baso Cnt 0.1 10*3/uL Normal 0.0-0.2 [facility] Comment on above: Performed By: #### H EMDF, CRP2, BMP3, ESR #### [place] [address] [address] [place], [place] Abs Neutrophile Cnt 7.7 10*3/uL High 1.8-7.0 [facility] Comment on above: Performed By: #### H EMDF, CRP2, BMP3, ESR #### [address] Basophils/100 WBC (Bld) 0.6 % Normal 0.0-2.0 [facility] Comment on above: Performed By: #### H EMDF, CRP2, BMP3, ESR #### [address] Eosinophils (Bld) [#/Vol] 0.1 10*3/uL Normal 0.0-0.5 [facility] Comment on above: Performed By: #### H EMDF, CRP2, BMP3, ESR #### [address] Eosinophils/100 WBC (Bld) 1.2 % Normal 1.0-6.0 [facility] Comment on above: Performed By: #### H EMDF, CRP2, BMP3, ESR #### [address] Erythrocyte distribution width (RBC) [Ratio] 14.3 % Normal 11.5-14.5 [facility] Comment on above: Performed By: #### H EMDF, CRP2, BMP3, ESR #### [address] Granulocytes/100 WBC (Bld) 69.9 % Normal 40.0-80.0 [facility] Comment on above: Performed By: #### H EMDF, CRP2, BMP3, ESR #### [address] Hematocrit (Bld) [Volume fraction] 38.7 % Normal 35.0-47.0 [facility] Comment on above: Performed By: #### H EMDF, CRP2, BMP3, ESR #### [address] [place], [place] Hemoglobin (Bld) [Mass/Vol] 12.9 g/dL Normal 11.7-16.0 [facility] Comment on above: Performed By: #### H EMDF, CRP2, BMP3, ESR #### [address] Lymphocytes (Bld) [#/Vol] 2.3 10*3/uL Normal 1.0-4.3 [facility] Comment on above: Performed By: #### H EMDF, CRP2, BMP3, ESR #### [address] Lymphocytes/100 WBC (Bld) 21.0 % Normal 20.0-40.0 [facility] Comment on above: Performed By: #### H EMDF, CRP2, BMP3, ESR #### [address] MCH (RBC) [Entitic mass] 29.6 pg Normal 26.0-34.0 [facility] Comment on above: Performed By: #### H EMDF, CRP2, BMP3, ESR #### [address] MCHC (RBC) [Mass/Vol] 33.3 % Normal 32.0-36.0 [facility] Comment on above: Performed By: #### H EMDF, CRP2, BMP3, ESR #### [address] MCV (RBC) [Entitic vol] 88.9 fL Normal 79.0-98.0 [facility] Comment on above: Performed By: #### H EMDF, CRP2, BMP3, ESR #### [address] Monocytes (Bld) [#/Vol] 0.8 10*3/uL Normal 0.0-0.8 [facility] Comment on above: Performed By: #### H EMDF, CRP2, BMP3, ESR #### [address], [place] Monocytes/100 WBC (Bld) 7.3 % Normal 2.0-10.0 [facility] Comment on above: Performed By: #### H EMDF, CRP2, BMP3, ESR #### [address] [address] [place], [place] Platelet mean volume (Bld) [Entitic vol] 6.7 fL Low 7.4-10.4 [facility] Comment on above: Performed By: #### H EMDF, CRP2, BMP3, ESR #### [address] [address] [place], [place] Platelets (Bld) [#/Vol] 258 10*3/uL Normal 140-440 [facility] Comment on above: Performed By: #### H EMDF, CRP2, BMP3, ESR #### [address] RBC (Bld) [#/Vol] 4.36 10*6/uL Normal 3.80-5.20 [facility] Comment on above: Performed By: #### H EMDF, CRP2, BMP3, ESR #### [address] [address] [place], [place] WBC (Bld) [#/Vol] 11.0 10*3/uL High 3.6-10.7 [facility] Comment on above: Performed By: #### H EMDF, CRP2, BMP3, ESR #### [address] [address] [place], [place] Sed Rateon 07-25-2018 Sed Rate 35 mm/h High 0-20 [facility] Comment on above: Performed By: #### H EMDF, CRP2, BMP3, ESR #### [address] [place] Bone Three Phase Studyon 02-15-2018 NM Bone Three Phase Study Patient Name: TEVIN VILLAGOMEZ Nuc Med Exam Date/Time 02/11/2018 13:10:20 EDT Exam NM Bone Three Phase Study Ordering Physician SHAHZAD WHITLEY KAITLYN Accession Number [id number] CPT4 Codes 08368 () Reason For Exam rt artificial knee joint Report BONE SCINTIGRAPHY (TRIPLE PHASE) CLINICAL INDICATION: Painful right knee arthroplasty, placed in 2016 Flow, blood pool and delayed imaging of the bilateral knees was performed in the standard anterior and posterior projections following the intravenous administration of 21.9 millicuries of technetium-99m MDP. Additional delayed spot views of the bilateral knees in the oblique and lateral projections were also obtained. COMPARISON: None FINDINGS: Initial angiographic phase images of the bilateral knees are unremarkable. No abnormal hyperemia is identified. Blood pool phase images of the bilateral knees also appear grossly normal. On the delayed images, a right knee arthroplasty is noted. There is no moderate or intense tracer uptake surrounding the arthroplasty to suggest infection or loosening. Moderate tracer uptake at the left knee is most likely degenerative. IMPRESSION: Normal appearance of the patient's right total knee arthroplasty. There is no abnormal tracer uptake seen to suggest infection or loosening. Moderate degenerative changes of the akhiok left knee. Report Dictated on Final Dictating Physician: ARAM SCOTT Signed Date and Time: 02/15/2018 8:23 am Signed by: ARAM SCOTT Transcribed Date and Time: 02/15/2018 8:24 Normal [facility] Clinical Summary: HMSPatient IDon 01-28-2018 OOP Invalid Interpretation Code [facility] Work Phone: Office Visit: New/Est - 1st visit with physician, Rm: 5on 01-28-2018 NEGATED: Highlighted rowProtein mass conc Done Invalid Interpretation Code [facility] Work Phone: NEGATED: Highlighted rowxray history of the bilateral knees on 01/2018 Invalid Interpretation Code [facility] Work Phone: DUPLEX EXTREMITY VEINS LMTD /UNILATon 12-03-2017 DUPLEX EXTREMITY VEINS LMTD/UNILAT Name: TEVIN VILLAGOMEZ STUDY:DUPLEX EXTREMITY VEINS LMTD/UNILAT; 12/03/2017 2:29 pm INDICATION:LEFT LOWER LEG PAIN. 62-year-old woman with left lower extremity pain. COMPARISON:None. ORDERING CLINICIAN:ABDIRAHMAN PRECIADO TECHNIQUE:Vascular ultrasound of the left lower extremity was performed. Realtime compression views as well as Acevedo scale, color Doppler andspectral Doppler waveform analysis was performed. FINDINGS:Evaluation of the visualized portions of the left common femoralvein, proximal, mid, and distal femoral vein, and popliteal vein wereperformed. Evaluation of the visualized portions of the posteriortibial and peroneal veins were also performed. In addition,evaluation of the contralateral common femoral vein was performed. Limitations: None. The evaluated veins demonstrate normal compressibility. There isintact venous flow demonstrating normal respiratory variability andnormal augmentation of flow with calf compression. Therefore, thereis no ultrasonographic evidence for deep vein thrombosis within theevaluated veins. Respiratory variation and augmentation to calf pressure was noted. IMPRESSION:No sonographic evidence for deep vein thrombosis within the evaluatedveins of the left lower extremity.Electronically signed by: CESAR NELSON MD Normal [facility] KNEE, 3 VIEWSon 12-03-2017 KNEE, 3 VIEWS Name: TEVIN VILLAGOMEZ STUDY:KNEE, 3 VIEWS; 12/03/2017 2:32 pm INDICATION:KNEE PAIN, BILATERAL. COMPARISON:None. ORDERING CLINICIAN:ABDIRAHMAN PRECIADO FINDINGS:A 3 view bilateral knee was obtained for a total of 6 projections. On the left, there is narrowing of thepatellofemoral and the medialjoint space. There is osteophyte formation involving the patella,distal femur, and proximal tibia. The findings are compatible withmoderate osteoarthritic changes of the left knee. On the right, there is a total knee arthroplasty. The femoral andtibial components appear well approximated. There is no convincingradiographic evidence of loosening of the prosthesis. There is no fracture or dislocation. There is no periosteal reactionor bone destruction. IMPRESSION:Moderate osteoarthritic changes of the left knee as discussed above Right total knee arthroplasty No definite acute osseous findingsElectronically signed by: JC GREENBERG MD Normal [facility] OVA/PARA + GIARDIA/CRYPTOSPO RIDIUM ANTIGENon 12-02-2017 O+P TRICHROME STAIN Negative Normal Negative [facility] Comment on above: Order Comment: If yo u do not want test(STLPP)PCR panel to beperformed on this sample please [phone], select option 4 addon lineand request that the STLPP test be cancelledand a (STLC)stool culture be performed at thereference laboratory. Result Comment: TEST INFORMATION: Ova and Parasite Exam, Fecal (Immunocompromised or Travel History)Method for identification of Ova and Parasites includes wet mountand trichromes stain.Due to the various shedding cycles of many parasites, threeseparate stool specimens collected over a 5-7-day period arerecommended for ova and parasite examination. A single negativeresult does not rule out the possibility of a parasitic infection.Stool antigen testing is the optimal test method for determiningthe parasitic presence of Giardia, Cryptosporidium spp, orEntamoeba histolytica. The ova and parasite exam does notspecifically detect Cryptosporidium, Cyclospora, Cystoisospora,and Microsporidia. For Cryptosporidium, refer to CryptosporidiumAntigen by EIA ([employer] test code 8808543). For Cyclospora andCystoisospora, refer to Parasitology Stain by Modified [employer]Fast([employer] test code 8185639). For Microsporidia, refer toMicrosporidia Stain ([employer] test code 8809331).Performed [place] [address] lgk.[employer], Robert Stearns MD - Lab. Director Performed By: #### O VPG3 ####[facility], [place] [address]ARUP [address] [place] [address] O+P WETMOUNT Negative Normal Negative [facility] Comment on above: Order Comment: If yo u do not want test(STLPP)PCR panel to beperformed on this sample please [phone], select option 4 addon lineand request that the STLPP test be cancelledand a (STLC)stool culture be performed at thereference laboratory. Performed By: #### O VPG3 ####[facility] [place] [address] OVA/PARA + GIARDIA/CRYPTOSPO RIDIUM ANTIGENon 11-30-2017 CRYPTOSPORIDIUM ANTIGEN Negative Normal NEGATIVE [facility] Comment on above: Order Comment: If yo u do not want test(STLPP)PCR panel to beperformed on this sample please [phone], select option 4 addon lineand request that the STLPP test be cancelledand a (STLC)stool culture be performed at thereference laboratory. Performed By: #### O VPG3 ####[facility], [place] [address]FJQHAlta [facility] Regional [facility] [place] [address] GIARDIA ANTIGEN Negative Normal NEGATIVE [facility] Comment on above: Order Comment: If yo u do not want test(STLPP)PCR panel to beperformed on this sample please [phone], select option 4 addon lineand request that the STLPP test be cancelledand a (STLC)stool culture be performed at thereference laboratory. Performed By: #### O VPG3 ####[facility], [place] [address]BIUG [id number] [place] [address] OVA+P WORKUP SEE BELOW Normal [facility] Comment on above: Order Comment: If yo u do not want test(STLPP)PCR panel to beperformed on this sample please [phone], select option 4 addon lineand request that the STLPP test be cancelledand a (STLC)stool culture be performed at thereference laboratory. Result Comment: Spec imens, when examined, are screened for helminth eggs/larvae, protozoa (eg. Giardia, amoebae) and Coccidia (eg. Cryptosporidium).. Performed By: #### O VPG3 ####[facility], [place] [address]WVEP [id number] [place] [address] CLOST.DIFF.TOXIN,PCRon 11-28 CLOST.DIFF.TOXIN,PCR NOT DETECTED Normal Not Detected [facility] Comment on above: Order Comment: If yo u do not want test(STLPP)PCR panel to beperformed on this sample please [phone], select option 4 addon lineand request that the STLPP test be cancelledand a (STLC)stool culture be performed at thereference laboratory. Result Comment: This assay detects the presence of the tcdB (toxin B) gene via DNA amplification, and results should be interpreted in the context of the patients history and clinical findings. This test cannot be performed on formed stools or used as a test of cure, and should not be performed more than once per 7 days. Performed By: #### C DPCR ####[facility] [place] [address] LEUKOCYTES,FECALon 8 WBC (Leukocytes) NONE OBSERVED Normal [facility] Comment on above: Order Comment: If yo u do not want test(STLPP)PCR panel to beperformed on this sample please [phone], select option 4 addon lineand request that the STLPP test be cancelledand a (STLC)stool culture be performed at thereference laboratory. Performed By: #### L EUKF ####[facility] [place] [address] STOOL PATHOGEN PCR PANELon 0 11-28-2017 CAMPYLOBACTER GP. NOT DETECTED Normal NOT DETECTED [facility] Comment on above: Order Comment: If yo u do not want test(STLPP)PCR panel to beperformed on this sample please [phone], select option 4 addon lineand request that the STLPP test be cancelledand a (STLC)stool culture be performed at thereference laboratory. Performed By: #### S TLPP ####[facility] [place] [address] NOROVIRUS GI/GII NOT DETECTED Normal NOT DETECTED [facility] Comment on above: Order Comment: If yo u do not want test(STLPP)PCR panel to beperformed on this sample please [phone], select option 4 addon lineand request that the STLPP test be cancelledand a (STLC)stool culture be performed at thereference laboratory. Performed By: #### S TLPP ####[facility] [place] [address] ROTAVIRUS A NOT DETECTED Normal NOT DETECTED [facility] Comment on above: Order Comment: If yo u do not want test(STLPP)PCR panel to beperformed on this sample please [phone], select option 4 addon lineand request that the STLPP test be cancelledand a (STLC)stool culture be performed at thereference laboratory. Result Comment: The enteric PCR panel is a panel of sensitive and specific amplified nucleic acid tests indicated as an aid in the diagnosis of specific bacterial and viral agents of gastrointestinal illness, in conjunction with other clinical, laboratory, and epidemiological information. This test is not approved for monitoring these infections. Monitoring is available for Salmonella and Shigella infections-request test Stool PCR Follow-Up (STLPF). Monitoring tests are not available at this time for other enteric agents in this panel. Performed By: #### S TLPP ####[facility] [place] [address] SALMONELLA SP. NOT DETECTED Normal NOT DETECTED [facility] Comment on above: Order Comment: If yo u do not want test(STLPP)PCR panel to beperformed on this sample please [phone], select option 4 addon lineand request that the STLPP test be cancelledand a (STLC)stool culture be performed at thereference laboratory. Performed By: #### S TLPP ####[facility] [place] [address] SHIGA TOXIN 1 NOT DETECTED Normal NOT DETECTED [facility] Comment on above: Order Comment: If yo u do not want test(STLPP)PCR panel to beperformed on this sample please [phone], select option 4 addon lineand request that the STLPP test be cancelledand a (STLC)stool culture be performed at thereference laboratory. Performed By: #### S TLPP ####[facility] [place] [address] SHIGA TOXIN 2 NOT DETECTED Normal NOT DETECTED [facility] Comment on above: Order Comment: If yo u do not want test(STLPP)PCR panel to beperformed on this sample please [phone], select option 4 addon lineand request that the STLPP test be cancelledand a (STLC)stool culture be performed at thereference laboratory. Performed By: #### S TLPP ####[facility] [id number] SHIGELLA SP. NOT DETECTED Normal NOT DETECTED [facility] Comment on above: Order Comment: If yo u do not want test(STLPP)PCR panel to beperformed on this sample please [phone], select option 4 addon lineand request that the STLPP test be cancelledand a (STLC)stool culture be performed at thereference laboratory. Performed By: #### S TLPP ####[facility] [place] [address] VIBRIO GROUP NOT DETECTED Normal NOT DETECTED [facility] Comment on above: Order Comment: If yo u do not want test(STLPP)PCR panel to beperformed on this sample please [phone], select option 4 addon lineand request that the STLPP test be cancelledand a (STLC)stool culture be performed at thereference laboratory. Performed By: #### S TLPP ####[facility] [place] [address] YERSINIA ENTEROCOLITICA NOT DETECTED Normal NOT DETECTED [facility] Comment on above: Order Comment: If yo u do not want test(STLPP)PCR panel to beperformed on this sample please [phone], select option 4 addon lineand request that the STLPP test be cancelledand a (STLC)stool culture be performed at thereference laboratory. Performed By: #### S TLPP ####[facility] [place] [address] Lab Specimen Source Normal [facility] Comment on above: Order Comment: If yo u do not want test(STLPP)PCR panel to beperformed on this sample please [phone], select option 4 addon lineand request that the STLPP test be cancelledand a (STLC)stool culture be performed at thereference laboratory. Performed By: #### S TLPP ####[facility] [place] [address] OVA/PARA + GIARDIA/CRYPTOSPO RIDIUM ANTIGENon 11-27-2017 Lab Specimen Source Normal [facility] Comment on above: Order Comment: If yo u do not want test(STLPP)PCR panel to beperformed on this sample please [phone], select option 4 addon lineand request that the STLPP test be cancelledand a (STLC)stool culture be performed at thereference laboratory. Performed By: #### O VPG3 ####[facility], [place] [address]DBHE [address] [place] [address] Performed By: #### L EUKF ####[facility] [place] [address] STOOL CULTURE, BACTERIALon 0 11-27-2017 STOOL CULTURE, BACTERIAL If you do not w ant test(STLPP)PCR panel to beperformed on this sample please call [phone], select option 4 addon lineand request that the STLPP test be cancelledand a (STLC)stool culture be performed at thereference laboratory.TEST STOOL CULTURE, BACTERIAL WAS CANCELLED, 11/27/2017 23:21 Test(STLC)stool culture has been cancelledas this test has been replaced with (STLPP)Stool PCR panel which includes testing for Bacterial pathogens,Shiga toxins, Rotavirus and Norovirus with same day turn around time..Cultures examined for Salmonella, Shigella, Campylobacter, Yersinia Tyler. coli 0157:H7.PATIENT: TEVIN VILLAGOMEZ [place] [facility] [place] [id number] : 55 AGE: SEX: F ORDERED BY: JUVE HURT: STOOL/RECTAL COLLECTED: 11/27/17 09:17ANTIBIOTICS AT URSZULA.: RECEIVED : 11/27/17 22:56SITE: R E S U L T S STOOL CULTURE, BACTERIAL CANCELLED 11/27/17 23:22 Normal [facility] Comment on above: Performed By: #### S TLC ####[facility] [place] [address] AMYLASEon 11-24-2017 Amylase 42 U/L Normal 29 - 103 [facility] Comment on above: Performed By: #### A MY ####[facility] [place] [address] HEPATIC FUNCTION PANELon Alanine aminotransferase (ALT) 10 U/L Normal 7 - 45 [facility] Comment on above: Result Comment: Delia ents treated with Sulfasalazine may generate falsely decreased results for ALT. Performed By: #### H EPFP ####[facility] [place] [address] Albumin 3.9 g/dL Normal 3.4 - 5.0 [facility] Comment on above: Performed By: #### H EPFP ####[facility] [place] [address] Alkaline phosphatase (ALP) 131 U/L Normal 33 - 136 [facility] Comment on above: Performed By: #### H EPFP ####[facility] [place] [address] Aspartate aminotransferase (AST) 13 U/L Normal 9 - 39 [facility] Comment on above: Performed By: #### H EPFP ####[facility] [place] [address] Bilirubin (direct) 0.1 mg/dL Normal 0.0 - 0.3 [facility] Comment on above: Performed By: #### H EPFP ####[facility] [place] [address] Bilirubin (total) 0.4 mg/dL Normal 0.0 - 1.2 [facility] Comment on above: Performed By: #### H EPFP ####[facility] [place] [address] Protein 6.5 g/dL Normal 6.4 - 8.2 [facility] Comment on above: Performed By: #### H EPFP ####[facility] [place] [address] LIPASEon 11-24-2017 Lipase 8 U/L Low 9 - 82 [facility] Comment on above: Result Comment: Yumiko puncture immediately after or during the administration of Metamizole may lead to falsely low results. Testing should be performed immediately prior to Metamizole dosing. Performed By: #### L IPAS ####[facility] [place] [address] MRI LUMBAR SPINE W/O CONTRAS Ton 05-27-2017 MRI LUMBAR SPINE W/O CONTRAST Performed at [facility] APPROVED BY: Adam Hilliard MD EXAM TITLE: MRI OF THE LUMBAR SPINE WITHOUT CONTRAST DATE:05/27/2017 09:34 COMPARISON: CT lumbar spine August 2014 CLINICAL INDICATION/HISTORY: Low back pain that radiates down right leg TECHNIQUE: Multiplanar, multi-sequence MRI of the lumbar spine without intravenous contrast FINDINGS:There are 5 non-rib bearing lumbar type vertebral bodies.. For purposes of this dictation the most inferior well-formed disc will be designated as L5-S1. The iliac crests are approximately at the level of the L4-L5 disc space. Vertebral bodies are maintained in height without evidence of fracture.Mild anterolisthesis L4-L5.Marrow signal is within normal limits.The conus medullaris terminates normally.No specific paraspinous soft tissue abnormality is seen. T12-L1: Mild disc bulging with no significant central canal stenosis or foraminal stenosis. L1-L2: There is a mild diffuse disk bulging with no significant central canal stenosis or foraminal stenosis. L2-L3: There is mild degenerative disc disease and mild diffuse disc bulge slightly more focal within the left foraminal region. Mild left foraminal stenosis. No central canal stenosis. L3-L4: There is a mild diffuse disk bulging with no significant central canal stenosis or foraminal stenosis. L4-L5: There is slight anterolisthesis. Mild posterior disc bulging. No central canal stenosis. Mild bilateral foraminal narrowing. There is facet arthritis. L5-S1: There is mild diffuse disc bulge with no significant central canal stenosis. Mild bilateral foraminal stenosis. The thecal sac has a somewhat patulous appearance which may indicate mild dural ectasia. IMPRESSION: 1. Multilevel degenerative disc disease as detailed above. No significant central canal stenosis. Mild foraminal stenosis as detailed. 2. L4-L5 facet arthritis Normal [facility] Protein Electrophoresis, Ser umon 02-25-2017 Protein Electrophoresis, Serum SEE BELOW Normal [facility] Comment on above: Result Comment: Tota l Protein, SPE 7.5 6.0-8.4 g/dLAlbumin 4.05 3.37-4.23 gm/dLAlpha 1 Globulin 0.29 0.18-0.31 gm/dLAlpha 2 Globulin 0.78 0.52-0.97 gm/dLBeta Globulin 1.17 0.84-1.36 gm/dLGamma Globulin 1.20 0.70-1.44 gm/dLInterpretation SEE BELOWNo definitive M protein is identified on protein electrophoresis.M Protein Location N/AM Lester Concentratn 0.00 0.00 gm/dLSPE Staff Review SEE BELOWReviewed by Lex Griffin M.D., PhD ([id number])Performing Laboratory:[facility] [id number] [place] [address] Performed By: #### S PEX ####[address] [address] CRPon 02-19-2017 C reactive protein (CRP) 0.97 mg/dL High 0.00-0.30 [facility] Comment on above: Performed By: #### C RP3 ####[address] [address] Hemogram/Diffon 02-19-2017 Basophils Auto #/vol (Bld) 0.03 thou/cmm Normal 0.00-0.08 [facility] Comment on above: Performed By: #### L CBCD ####[address] [address] Basophils/100 WBC Auto (Bld) 0.4 % Normal [facility] Comment on above: Performed By: #### L CBCD ####[address] [address] Eosinophils 0.11 thou/cmm Normal 0.00-0.41 [facility] Comment on above: Performed By: #### L CBCD ####[address] [address] Eosinophils/100 leukocytes 1.6 % Normal [facility] Comment on above: Performed By: #### L CBCD ####[place] [address] Erythrocyte distribution width Auto Ratio (RBC) 13.6 % Normal 11.5-15.9 [facility] Comment on above: Performed By: #### L CBCD ####[place] [address] Erythrocytes (RBC) 4.47 mil/cmm Normal 4.20-5.40 [facility] Comment on above: Performed By: #### L CBCD ####[place] [address] Hematocrit (HCT) 41.2 % Normal 37.0-47.0 [facility] Comment on above: Performed By: #### L CBCD ####[place] [address] Hemoglobin mass conc (Bld) 13.7 g/dL Normal 12.0-16.0 [facility] Comment on above: Performed By: #### L CBCD ####[place] [address] Lymphocytes 2.91 thou/cmm Normal 1.50-3.65 [facility] Comment on above: Performed By: #### L CBCD ####[address] [address] Lymphocytes/100 leukocytes 41.0 % Normal [facility] Comment on above: Performed By: #### L CBCD ####[place] [address] MCH 30.6 pg Normal 27.0-31.0 [facility] Comment on above: Performed By: #### L CBCD ####[place] [address] MCHC mass conc (RBC) 33.3 % Normal 32.0-36.0 [facility] Comment on above: Performed By: #### L CBCD ####[address] [address] MCV 92.2 fL Normal 81.0-99.0 [facility] Comment on above: Performed By: #### L CBCD ####[address] [address] Monocytes 0.58 thou/cmm Normal 0.20-1.00 [facility] Comment on above: Performed By: #### L CBCD ####[address] [address] Monocytes/100 leukocytes 8.1 % Normal [facility] Comment on above: Performed By: #### L CBCD ####[address] [address] Platelet mean volume (PMV) 9.5 fL Normal 7.1-10.5 [facility] Comment on above: Performed By: #### L CBCD ####[address] [address] Platelets 228 thou/cmm Normal 150-400 [facility] Comment on above: Performed By: #### L CBCD ####[address] [address] Seg Neutrophil 48.9 % Normal [facility] Comment on above: Performed By: #### L CBCD ####[address] [address] Seg. Neut.# 3.47 thou/cmm Normal 3.00-5.67 [facility] Comment on above: Performed By: #### L CBCD ####[address] [address] WBC (Leukocytes) 7.1 thou/cmm Normal 4.8-10.8 [facility] Comment on above: Performed By: #### L CBCD ####[address] [address] Sed Rateon 02-19-2017 Sed Rate 4 mm/hr Normal 0-20 [facility] Comment on above: Performed By: #### L ESR ####[address] [address] Vital Signs Date Time Vital Sign Value Performing Clinician Facility 08-24-2024 14:42-0500 Diastolic blood pressure 70 mm[Hg] Haydee Webb APRN.CLERK OF SCALES Work Phone: [facility] 08-24-2024 14:42-0500 Systolic blood pressure 130 mm[Hg] Haydee Webb PLANE TENDER.CLERK OF SCALES Work Phone: [facility] 08-23-2024 08:12-0500 Body height 154.9 cm Christy Perez MD Work Phone: [facility] 08-23-2024 08:12-0500 Body mass index (BMI) [Ratio] 30.84 kg/m2 Christy Perez MD Work Phone: [facility] 08-23-2024 08:12-0500 Body temperature 98.2 [degF] Christy Perez MD Work Phone: [facility] 08-23-2024 08:12-0500 Body weight 74.03 kg Christy Perez MD Work Phone: [facility] 08-23-2024 08:12-0500 Diastolic blood pressure 65 mm[Hg] Christy Perez MD Work Phone: [facility] 08-23-2024 08:12-0500 Heart rate 104 /min Christy Perez MD Work Phone: [facility] 08-23-2024 08:12-0500 Respiratory rate 16 /min Christy Perez MD Work Phone: [facility] 08-23-2024 08:12-0500 SaO2% (BldA) [Mass fraction] 100 % Christy Perez MD Work Phone: [facility] 08-23-2024 08:12-0500 Systolic blood pressure 94 mm[Hg] Christy Perez MD Work Phone: [facility] 08-08-2024 13:07-0500 Body mass index (BMI) [Ratio] 27.4 kg/m2 Sixto Knowles MD Work Phone: [facility] 08-08-2024 13:07-0500 Body weight 65.77 kg Sixto Knowles MD Work Phone: [facility] 08-08-2024 13:07-0500 Diastolic blood pressure 68 mm[Hg] Sixto Knowles MD Work Phone: [facility] 08-08-2024 13:07-0500 Systolic blood pressure 124 mm[Hg] Sixto Knowles MD Work Phone: [facility] 08-01-2024 09:49-0500 Diastolic blood pressure 84 mm[Hg] Sixto Knowles MD Work Phone: [facility] 08-01-2024 09:49-0500 Systolic blood pressure 130 mm[Hg] Sixto Knowles MD Work Phone: [facility] 07-11-2024 09:08-0500 Diastolic blood pressure 81 mm[Hg] Laura Mcmanus MD Work Phone: [facility] 07-11-2024 09:08-0500 Heart rate 84 /min Laura Mcmanus MD Work Phone: [facility] 07-11-2024 09:08-0500 Systolic blood pressure 125 mm[Hg] Laura Mcmanus MD Work Phone: [facility] 02-01-2024 09:51-0400 Body mass index (BMI) [Ratio] 28.53 kg/m2 Laura Mcmanus MD Work Phone: [facility] 02-01-2024 09:51-0400 Body weight 68.49 kg Laura Mcmanus MD Work Phone: [facility] 02-01-2024 09:51-0400 Diastolic blood pressure 77 mm[Hg] Laura Mcmanus MD Work Phone: [facility] 02-01-2024 09:51-0400 Heart rate 82 /min Laura Mmcanus MD Work Phone: [facility] 02-01-2024 09:51-0400 Systolic blood pressure 131 mm[Hg] Laura Mcmanus MD Work Phone: [facility] 10-01-2023 13:33-0400 Body mass index (BMI) [Ratio] 33.4 kg/m2 [facility] 10-01-2023 13:33-0400 Body temperature 97.5 [degF] [facility] 10-01-2023 13:33-0400 Body weight 80.28 kg [facility] 10-01-2023 13:33-0400 Diastolic blood pressure 70 mm[Hg] [facility] 10-01-2023 13:33-0400 Heart rate 98 /min [facility] 10-01-2023 13:33-0400 Respiratory rate 18 /min [facility] 10-01-2023 13:33-0400 SaO2% (BldA) [Mass fraction] 96 % [facility] 10-01-2023 13:33-0400 Systolic blood pressure 120 mm[Hg] [facility] 09-14-2023 15:52-0400 Body height 154.94 cm [facility] 09-01-2023 16:58-0400 Body height 154.94 cm [facility] 09-01-2023 16:58-0400 Body mass index (BMI) [Ratio] 33.4 kg/m2 [facility] 09-01-2023 16:58-0400 Body temperature 97.5 [degF] [facility] 09-01-2023 16:58-0400 Body weight 80.28 kg [facility] 09-01-2023 16:58-0400 Diastolic blood pressure 70 mm[Hg] [facility] 09-01-2023 16:58-0400 Heart rate 98 /min [facility] 09-01-2023 16:58-0400 Respiratory rate 18 /min [facility] 09-01-2023 16:58-0400 SaO2% (BldA) [Mass fraction] 96 % [facility] 09-01-2023 16:58-0400 Systolic blood pressure 120 mm[Hg] [facility] 06-02-2023 16:20-0500 Body mass index (BMI) [Ratio] 30.6 kg/m2 [facility] 06-02-2023 16:20-0500 Body temperature 97.5 [degF] [facility] 06-02-2023 16:20-0500 Body weight 73.48 kg [facility] 06-02-2023 16:20-0500 Diastolic blood pressure 80 mm[Hg] [facility] 06-02-2023 16:20-0500 Heart rate 74 /min [facility] 06-02-2023 16:20-0500 Respiratory rate 18 /min [facility] 06-02-2023 16:20-0500 SaO2% (BldA) [Mass fraction] 97 % [facility] 06-02-2023 16:20-0500 Systolic blood pressure 130 mm[Hg] [facility] 09-24-2022 17:49-0400 Body height 154.94 cm [facility] 09-24-2022 17:49-0400 Body mass index (BMI) [Ratio] 29.5 kg/m2 [facility] 09-24-2022 17:49-0400 Body temperature 97.5 [degF] [facility] 09-24-2022 17:49-0400 Body weight 70.76 kg [facility] 09-24-2022 17:49-0400 Diastolic blood pressure 70 mm[Hg] [facility] 09-24-2022 17:49-0400 Heart rate 105 /min [facility] 09-24-2022 17:49-0400 Respiratory rate 18 /min [facility] 09-24-2022 17:49-0400 SaO2% (BldA) [Mass fraction] 98 % [facility] 09-24-2022 17:49-0400 Systolic blood pressure 120 mm[Hg] [facility] 08-14-2022 10:29-0500 Body temperature 96.8 [degF] Tayla Whitman RN Work Phone: [facility] 08-14-2022 10:29-0500 Diastolic blood pressure 70 mm[Hg] Tayla Whitman RN Work Phone: [facility] 08-14-2022 10:29-0500 Heart rate 92 /min Tayla Whitman RN Work Phone: [facility] 08-14-2022 10:29-0500 Respiratory rate 20 /min Tayla Whitman RN Work Phone: [facility] 08-14-2022 10:29-0500 SaO2% (BldA) [Mass fraction] 98 % Tayla Whitman RN Work Phone: [facility] 08-14-2022 10:29-0500 Systolic blood pressure 104 mm[Hg] Tayla Whitman RN Work Phone: [facility] 08-07-2022 11:06-0500 Body temperature 97.81 [degF] Meagan Christopher RN Work Phone: [facility] 08-07-2022 11:06-0500 Diastolic blood pressure 60 mm[Hg] Meagan Christopher RN Work Phone: [facility] 08-07-2022 11:06-0500 Heart rate 97 /min Meagan Leungber RN Work Phone: [facility] 08-07-2022 11:06-0500 Respiratory rate 16 /min Meagan Christopher RN Work Phone: [facility] 08-07-2022 11:06-0500 SaO2% (BldA) [Mass fraction] 99 % Meagan Ashwin RN Work Phone: [facility] 08-07-2022 11:06-0500 Systolic blood pressure 122 mm[Hg] Meagan Ashwin RN Work Phone: [facility] 08-01-2022 11:52-0500 Body temperature 97.9 [degF] Andie Anderson LPN Work Phone: [facility] 08-01-2022 11:52-0500 Diastolic blood pressure 70 mm[Hg] Andie Anderson LPN Work Phone: [facility] 08-01-2022 11:52-0500 Heart rate 61 /min Andiebaljinder Victorias BATCHER OPERATOR Work Phone: [facility] 08-01-2022 11:52-0500 Respiratory rate 18 /min Andie Anderson BATCHER OPERATOR Work Phone: [facility] 08-01-2022 11:52-0500 SaO2% (BldA) [Mass fraction] 95 % Andie Anderson BATCHER OPERATOR Work Phone: [facility] 08-01-2022 11:52-0500 Systolic blood pressure 94 mm[Hg] Andie Anderson BATCHER OPERATOR Work Phone: [facility] 07-21-2022 13:55-0500 Body temperature 98.01 [degF] Shavonne Thorpe RN Work Phone: [facility] 07-21-2022 13:55-0500 Diastolic blood pressure 68 mm[Hg] Shavonne Thorpe RN Work Phone: [facility] 07-21-2022 13:55-0500 Heart rate 96 /min Shavonne Thorpe RN Work Phone: [facility] 07-21-2022 13:55-0500 Respiratory rate 18 /min Shavonne Thorpe RN Work Phone: [facility] 07-21-2022 13:55-0500 SaO2% (BldA) [Mass fraction] 99 % Shavonne Thorpe RN Work Phone: [facility] 07-21-2022 13:55-0500 Systolic blood pressure 120 mm[Hg] Shavonne Thorpe RN Work Phone: [facility] 07-18-2022 13:40-0500 Body temperature 98.01 [degF] Shavonne Thorpe RN Work Phone: [facility] 07-18-2022 13:40-0500 Diastolic blood pressure 64 mm[Hg] Shavonne Thorpe RN Work Phone: [facility] 01-27-2023 13:40-0500 Heart rate 76 /min Shavonne Thorpe RN Work Phone: [facility] 07-18-2022 13:40-0500 Respiratory rate 20 /min Shavonne Thorpe RN Work Phone: [facility] 07-18-2022 13:40-0500 SaO2% (BldA) [Mass fraction] 99 % Shavonne Thorpe RN Work Phone: [facility] 07-18-2022 13:40-0500 Systolic blood pressure 120 mm[Hg] Shavonne Thorpe RN Work Phone: [facility] 07-16-2022 09:44-0500 Body temperature 96.01 [degF] Vesna Lester RN Work Phone: [facility] 07-16-2022 09:44-0500 Diastolic blood pressure 88 mm[Hg] Vesna Lester RN Work Phone: [facility] 07-16-2022 09:44-0500 Heart rate 74 /min Vesna Lester RN Work Phone: [facility] 07-16-2022 09:44-0500 Respiratory rate 18 /min Vesna Lester RN Work Phone: [facility] 07-16-2022 09:44-0500 SaO2% (BldA) [Mass fraction] 99 % Vesna Lester RN Work Phone: [facility] 07-16-2022 09:44-0500 Systolic blood pressure 122 mm[Hg] Vesna Lester RN Work Phone: [facility] 07-14-2022 12:21-0500 Body temperature 97 [degF] Vesna Lester RN Work Phone: [facility] 07-14-2022 12:21-0500 Diastolic blood pressure 88 mm[Hg] Vesna Lester RN Work Phone: [facility] 07-14-2022 12:21-0500 Heart rate 107 /min Vesna Lester RN Work Phone: [facility] 07-14-2022 12:21-0500 Respiratory rate 18 /min Vesna Lester RN Work Phone: [facility] 07-14-2022 12:21-0500 SaO2% (BldA) [Mass fraction] 94 % Vesna Lester RN Work Phone: [facility] 07-14-2022 12:21-0500 Systolic blood pressure 118 mm[Hg] Vesna Lester RN Work Phone: [facility] 07-12-2022 18:25-0500 Body temperature 97.9 [degF] Eliza Newbrough BATCHER OPERATOR Work Phone: [facility] 07-12-2022 18:25-0500 Body weight 74.39 kg Eliza Newbrough BATCHER OPERATOR Work Phone: [facility] 07-12-2022 18:25-0500 Diastolic blood pressure 68 mm[Hg] Eliza Newbrough BATCHER OPERATOR Work Phone: [facility] 07-12-2022 18:25-0500 Heart rate 76 /min Eliza Newbrough BATCHER OPERATOR Work Phone: [facility] 07-12-2022 18:25-0500 Respiratory rate 16 /min Eliza Newbrough BATCHER OPERATOR Work Phone: [facility] 07-12-2022 18:25-0500 SaO2% (BldA) [Mass fraction] 99 % Eliza Newbrough BATCHER OPERATOR Work Phone: [facility] 07-12-2022 18:25-0500 Systolic blood pressure 128 mm[Hg] Eliza Newbrough BATCHER OPERATOR Work Phone: [facility] 07-10-2022 11:06-0500 Body temperature 97.11 [degF] Kiya Acevedo BATCHER OPERATOR Work Phone: [facility] 07-10-2022 11:06-0500 Diastolic blood pressure 70 mm[Hg] Kiya Acevedo BATCHER OPERATOR Work Phone: [facility] 07-10-2022 11:06-0500 Heart rate 98 /min Kiya Acevedo BATCHER OPERATOR Work Phone: [facility] 07-10-2022 11:06-0500 Respiratory rate 17 /min Kiya Acevedo BATCHER OPERATOR Work Phone: [facility] 07-10-2022 11:06-0500 SaO2% (BldA) [Mass fraction] 98 % Kiya Acevedo BATCHER OPERATOR Work Phone: [facility] 07-10-2022 11:06-0500 Systolic blood pressure 122 mm[Hg] Kiya Acevedo BATCHER OPERATOR Work Phone: [facility] 07-04-2022 12:13-0500 Body temperature 97 [degF] Nafisa Alexandra RN Work Phone: [facility] 07-04-2022 12:13-0500 Diastolic blood pressure 70 mm[Hg] Nafisa Alexandra RN Work Phone: [facility] 07-04-2022 12:13-0500 Heart rate 89 /min Nafisa Alexandra RN Work Phone: [facility] 07-04-2022 12:13-0500 Respiratory rate 16 /min Nafisa Alexandra RN Work Phone: [facility] 07-04-2022 12:13-0500 SaO2% (BldA) [Mass fraction] 98 % Nafisa Alexandra RN Work Phone: [facility] 07-04-2022 12:13-0500 Systolic blood pressure 112 mm[Hg] Nafisa Alexandra RN Work Phone: [facility] 06-27-2022 13:50-0500 Body temperature 99.61 [degF] Gloria Terry PA-C Work Phone: [facility] 06-18-2022 12:32-0500 Body temperature 98.29 [degF] Gloria Terry PA-C Work Phone: [facility] 06-18-2022 12:32-0500 Diastolic blood pressure 79 mm[Hg] Gloria Terry PA-C Work Phone: [facility] 06-18-2022 12:32-0500 Heart rate 119 /min Gloria Terry PA-C Work Phone: [facility] 06-18-2022 12:32-0500 Systolic blood pressure 123 mm[Hg] Gloria Terry PA-C Work Phone: [facility] 05-21-2022 10:09-0500 Heart rate 64 /min Pacc 1 Work Phone: [facility] 05-21-2022 09:24-0500 Body height 154.9 cm Pacc 1 Work Phone: [facility] 05-21-2022 09:24-0500 Body temperature 97.81 [degF] Pacc 1 Work Phone: [facility] 05-21-2022 09:24-0500 Body weight 80.74 kg Pacc 1 Work Phone: [facility] 05-21-2022 09:24-0500 Diastolic blood pressure 80 mm[Hg] Pacc 1 Work Phone: [facility] 05-21-2022 09:24-0500 Respiratory rate 16 /min Pacc 1 Work Phone: [facility] 05-21-2022 09:24-0500 SaO2% (BldA) [Mass fraction] 100 % Pacc 1 Work Phone: [facility] 05-21-2022 09:24-0500 Systolic blood pressure 122 mm[Hg] Pacc 1 Work Phone: [facility] 05-08-2022 08:10-0500 Body height 154.9 cm Christy Perez MD Work Phone: [facility] 05-08-2022 08:10-0500 Body temperature 96.8 [degF] Christy Perez MD Work Phone: [facility] 05-08-2022 08:10-0500 Body weight 81.01 kg Christy Perez MD Work Phone: [facility] 05-08-2022 08:10-0500 Diastolic blood pressure 82 mm[Hg] Christy Perez MD Work Phone: [facility] 05-08-2022 08:10-0500 Heart rate 107 /min Christy Perez MD Work Phone: [facility] 05-08-2022 08:10-0500 Systolic blood pressure 129 mm[Hg] Christy Perez MD Work Phone: [facility] 08-08-2021 18:45-0500 Body height 154.94 cm [facility] Work Phone: 08-08-2021 18:45-0500 Body mass index (BMI) [Ratio] 36.4 kg/m2 [facility] Work Phone: 08-08-2021 18:45-0500 Body temperature 97.3 [degF] [facility] Work Phone: 08-08-2021 18:45-0500 Body weight 87.54 kg [facility] Work Phone: 08-08-2021 18:45-0500 Diastolic blood pressure 60 mm[Hg] [facility] Work Phone: 08-08-2021 18:45-0500 Heart rate 52 /min [facility] Work Phone: 08-08-2021 18:45-0500 Respiratory rate 18 /min [facility] Work Phone: 08-08-2021 18:45-0500 SaO2% (BldA) [Mass fraction] 100 % [facility] Work Phone: 08-08-2021 18:45-0500 Systolic blood pressure 110 mm[Hg] [facility] Work Phone: 06-19-2021 14:38-0500 Body mass index (BMI) [Ratio] 36.2 kg/m2 [facility] Work Phone: 06-19-2021 14:38-0500 Body temperature 9.7 [degF] [facility] Work Phone: 06-19-2021 14:38-0500 Body weight 87.08 kg [facility] Work Phone: 06-19-2021 14:38-0500 Diastolic blood pressure 60 mm[Hg] [facility] Work Phone: 06-19-2021 14:38-0500 Heart rate 92 /min [facility] Work Phone: 06-19-2021 14:38-0500 Respiratory rate 18 /min [facility] Work Phone: 06-19-2021 14:38-0500 SaO2% (BldA) [Mass fraction] 97 % [facility] Work Phone: 06-19-2021 14:38-0500 Systolic blood pressure 110 mm[Hg] [facility] Work Phone: 03-22-2019 18:00-0400 Body Temperature 99 [degF] [place], [place] 03-22-2019 18:00-0400 BP Diastolic 78 mm[Hg] [place], [place] 03-22-2019 18:00-0400 BP Systolic 104 mm[Hg] [place], [place] 03-22-2019 18:00-0400 Pulse (Heart Rate) 72 /min [facility], [place] 03-22-2019 18:00-0400 Pulse Oximetry 98 % [facility] , [place] 03-22-2019 18:00-0400 Respiratory Rate 16 /min [facility], [place] 03-22-2019 09:22-0400 BMI (Body Mass Index) 33.46 kg/m2 [place], [place] 03-22-2019 09:22-0400 Body weight 81.65 kg [place], [place] 03-22-2019 09:22-0400 Height 156.2 cm [place] NEGATED: Highlighted [id number] 10:20-0400 BMI (Body Mass Index) 34.13 kg/m2 Ophelia Ibarra BATCHER OPERATOR [facility] Work Phone: NEGATED: Highlighted [id number] 10:20-0400 BP Diastolic 77 mm[Hg] Ophelia Ibarra BATCHER OPERATOR [facility] [facility] Work Phone: NEGATED: Highlighted [id number] 10:20-0400 BP Systolic 113 mm[Hg] Opheliatavares Ibarra [facility] Work Phone: NEGATED: Highlighted [id number] 10:20-0400 Height 154.94 cm Opheliatavares Ibarra [facility] Work Phone: NEGATED: Highlighted [id number] 10:20-0400 Height 155 cm Opheliatavares Ibarra [facility] Work Phone: NEGATED: Highlighted [id number] 10:20-0400 Pulse (Heart Rate) 85 /min Opheliatavares Ibarra [facility] Work Phone: NEGATED: Highlighted [id number] 10:20-0400 Weight 81.65 kg Opheliatavares Ibarra BATCHER OPERATOR [facility] Work Phone: NEGATED: Highlighted [id number] 10:20-0400 Weight 82 kg Opheliatavares Ibarra [facility] Work Phone: Encounters Encounter Date Encounter Type Care Provider Facility Start: 11-09-2024 End: 11-09-2024 ambulatory Cande Ely NP Facility:[facility] Start: 11-02-2024 End: 11-04-2024 ambulatory CANDE ELY Facility:[facility] Start: 10-27-2024 End: 10-27-2024 ambulatory Ismael Mcconnell MD Work Phone: [facility] - ENDO Start: 10-27-2024 End: 10-27-2024 Telephone encounter Ismael Mcconnell MD Work Phone: Provider Adult Comment on above: Patient Update (Need s EGD with possible dilatation with EUS) Start: 10-25-2024 End: 10-25-2024 Patient encounter procedure Christy Perez MD Work Phone: General Surgery Comment on above: Umbilical hernia wit hout obstruction or gangrene; Dilation of pancreatic duct (HCC); Nausea; Heartburn Start: 10-25-2024 End: 10-25-2024 ambulatory CHRISTY PEREZ Facility:[facility] Start: 10-20-2024 End: 10-20-2024 Telephone encounter Christy Perez MD Work Phone: General Surgery Comment on above: Appointment (Family calling, wants sooner appt for pt) Start: 10-18-2024 End: 10-19-2024 Telephone encounter Christy Perez MD Work Phone: General Surgery Comment on above: Returning Patient's Call Procedure (Needs EUS w/ possible FNA) Start: 10-05-2024 End: 10-05-2024 Telephone encounter Haydee Webb APRN.CNP Work Phone: URO/Gynecology Start: 09-29-2024 End: 09-29-2024 ambulatory CHRISTY PEREZ Facility:[facility] Start: 09-28-2024 End: 09-28-2024 Telephone encounter Christy Perez MD Work Phone: [place] Provider Adult Comment on above: Results Start: 09-27-2024 End: 09-27-2024 ambulatory CHRISTY PEREZ Facility:[facility] Start: 09-27-2024 End: 09-27-2024 Subsequent hospital visit by physician Main A21 4 Work Phone: Radiology Comment on above: Right groin pain [R1 0.31] Start: 09-22-2024 End: 09-22-2024 Telephone encounter Christy Perez MD Work Phone: General Surgery Comment on above: Returning Patient's Call Start: 09-08-2024 End: 09-08-2024 ambulatory CHRISTY PEREZ [facility] Start: 09-08-2024 End: 11-08-2024 Follow-up encounter Christy Perez MD Work Phone: SD Provider Adult Start: 09-08-2024 End: 09-19-2024 Telephone encounter Thais Laird Radiology Comment on above: Appointment Results Start: 09-06-2024 End: 11-06-2024 Follow-up encounter Christy Perez MD Work Phone: General Surgery Start: 09-06-2024 End: 09-19-2024 Telephone encounter Christy Perez MD Work Phone: SD Provider Adult Comment on above: Results Start: 09-02-2024 End: 09-02-2024 Telephone encounter Christy Perez MD Work Phone: General Surgery Comment on above: Patient Question Start: 08-25-2024 ambulatory CHRISTY PEREZ Facili ty:[facility] Start: 08-25-2024 End: 08-25-2024 Subsequent hospital visit by physician [facility] Work Phone: [facility] Comment on above: RLQ abdominal pain [ R10.31] Right lower quadrant pain [R10.31] Start: 08-24-2024 End: 08-24-2024 ambulatory HAYDEE WEBB Facility:[facility] Start: 08-24-2024 End: 08-24-2024 Patient encounter procedure Haydee Webb APRN.CLERK OF SCALES Work Phone: URO/Gynecology Comment on above: OAB (overactive blad elo) Start: 08-24-2024 End: 08-24-2024 Telephone encounter Haydee Webb APRN.CLERK OF SCALES Work Phone: URO/Gynecology Comment on above: Care Coordination (B otox) Start: 08-24-2024 End: 08-24-2024 ambulatory CHRISTY PEREZ [facility] Start: 08-24-2024 Encounter for preprocedural laboratory examination CANDENasim ELY [facility] Start: 08-23-2024 End: 08-23-2024 ambulatory CHRISTY PEREZ Facility:[facility] Start: 08-23-2024 End: 08-23-2024 Patient encounter procedure Christy Perez MD Work Phone: General Surgery Comment on above: RLQ abdominal pain ( Primary Dx); Encounter for preprocedural laboratory examination; Nausea Start: 08-23-2024 End: 08-23-2024 Patient encounter status Christy Perez MD Work Phone: [facility] Start: 08-09-2024 End: 08-09-2024 Telephone encounter Sixto Knowles MD Work Phone: URO/Gynecology Comment on above: Care Coordination (B otox) Start: 08-08-2024 End: 10-08-2024 Follow-up encounter Sixto Knowles MD Work Phone: Urogynecology Start: 08-08-2024 End: 08-08-2024 ambulatory SIXTO KNOWLES Facility:[facility] Start: 08-08-2024 End: 08-08-2024 Office outpatient visit 25 minutes Sixto Knowles MD Work Phone: URO/Gynecology Comment on above: Procedure (UDS) Start: 08-08-2024 End: 08-08-2024 Patient encounter status Sixto Knowles MD Work Phone: [facility] Start: 08-01-2024 End: 08-01-2024 ambulatory SIXTO KNOWLES Facility:[facility] Start: 08-01-2024 End: 08-01-2024 Office outpatient visit 15 minutes Sixto Knowles MD Work Phone: URO/Gynecology Comment on above: Urinary frequency (P rimary Dx); OAB (overactive bladder) Start: 07-13-2024 End: 07-20-2024 ambulatory Laura Mcmanus MD Work Phone: Urogynecology Comment on above: Prophylactic antibio tic Start: 07-11-2024 End: 07-11-2024 Patient encounter procedure Laura Mcmanus MD Work Phone: Urogynecology Comment on above: Urinary frequency (P rimary Dx); Stress incontinence in female; Abnormal urinalysis Start: 07-11-2024 End: 07-11-2024 ambulatory LAURA MCMANUS [facility] Start: 07-05-2024 End: 07-05-2024 Telephone encounter Laura Mcmanus MD Work Phone: Urogynecology Comment on above: Patient Question Start: 07-04-2024 End: 07-04-2024 ambulatory Cande Ely NP Facility:[facility] Start: 05-26-2024 End: 05-26-2024 Telephone encounter Laura Mcmanus MD Work Phone: Urogynecology Comment on above: Patient Update Start: 04-05-2024 End: 04-05-2024 Telephone encounter Laura Mcmanus MD Work Phone: Urogynecology Comment on above: Medication Problem Start: 03-30-2024 End: 03-30-2024 Telephone encounter Laura Mcmanus MD Work Phone: Urogynecology Start: 03-29-2024 End: 04-13-2024 Refill Laura Mcmanus MD Work Phone: [facility] Comment on above: Prescription Refills Start: 03-28-2024 End: 03-28-2024 Telephone encounter Laura Mcmanus MD Work Phone: Urogynecology Start: 03-23-2024 End: 03-23-2024 ambulatory LAURA MCMANUS [facility] Start: 03-04-2024 End: 03-07-2024 ambulatory Laura Mcmanus MD Work Phone: Urogynecology Comment on above: Blood work and urine sample Start: 02-29-2024 End: 02-29-2024 Patient encounter procedure Laura Mcmanus MD Work Phone: Urogynecology Comment on above: Microscopic hematuri a (Primary Dx); Dysuria; Abnormal urinalysis; Recurrent UTI; Hematuria, unspecified type Start: 02-29-2024 End: 02-29-2024 ambulatory LAURA MCMANUS [facility] Start: 02-17-2024 End: 02-17-2024 Telephone encounter Laura Mcmanus MD Work Phone: Reproductive Endocrinology Infertility Start: 02-09-2024 End: 02-09-2024 Emergency department patient visit CANDE ELY Facility:[facility] Start: 02-01-2024 End: 02-01-2024 Patient encounter procedure Laura Mcmanus MD Work Phone: Urogynecology Comment on above: Pelvic organ prolaps e quantification stage 2 cystocele (Primary Dx); Mixed stress and urge urinary incontinence; Dysuria; Abnormal urinalysis; Recurrent UTI; Vaginal atrophy Start: 02-01-2024 End: 02-01-2024 ambulatory LAURA MCMANUS Facility:[facility] Start: 01-16-2024 ambulatory CANDE ELY Facil ity:[facility] Start: 01-16-2024 End: 01-16-2024 Subsequent hospital visit by physician [facility]r [facility] Comment on above: Unspecified abdomina l pain [R10.9] Start: 01-15-2024 End: 01-15-2024 ambulatory Cande Ely SALES SUPPORT COORDINATOR Facility:[facility] Start: 01-07-2024 End: 01-07-2024 ambulatory Cande Ely SALES SUPPORT COORDINATOR Facility:[facility] Start: 12-03-2023 End: 12-03-2023 ambulatory Cande Ely SALES SUPPORT COORDINATOR Facility:[facility] Start: 11-27-2023 Telephone encounter Sixto wong MD Work Phone: [facility] Comment on above: Results Start: 11-26-2023 Telephone encounter Sixto wong MD Work Phone: [facility] Comment on above: Results Start: 11-24-2023 ambulatory SIXTO SIMMONS Facility: [facility] Start: 11-24-2023 End: 11-24-2023 Subsequent hospital visit by physician Stereo/Ultrasound Biopsy [facility] RADIO M[facility]MO [facility] Comment on above: Abnormal finding on breast imaging [R92.8] Start: 11-04-2023 Orders Only Sixto Simmons MD Work Phone: [facility] Comment on above: Abnormal finding on breast imaging (Primary Dx) Start: 10-27-2023 ambulatory CANDE ELY Facil ity:[facility] Start: 10-27-2023 End: 10-27-2023 Subsequent hospital visit by physician Mammo/Bone Density [facility] RADIO MAMMO BONE D [facility] Comment on above: Unspecified lump in the left breast, unspecified quadrant [N63.20] Start: 10-01-2023 End: 10-01-2023 ambulatory [facility] Work Phone: Start: 10-01-2023 End: 10-01-2023 Patient encounter procedure [facility]-Laboratory, Specimen Work Phone: Start: 09-30-2023 Documentation procedure Mammog madeline Coordinator [facility] Start: 09-30-2023 Letter encounter Mammography Coordinator [place] ANCILLARY AREA NOT LISTED Start: 09-29-2023 ambulatory CANDE ELY Facil ity:[facility] Start: 09-29-2023 End: 09-29-2023 Subsequent hospital visit by physician Mammo/Bone Density [facility] RADIO MAMMO BONE D [facility] Comment on above: Encounter for screen ing mammogram for malignant neoplasm of breast [Z12.31] Start: 09-14-2023 End: 09-14-2023 ambulatory [facility] Work Phone: Start: 09-14-2023 End: 09-14-2023 Patient encounter procedure [facility]-Laboratory, Specimen Work Phone: Start: 09-01-2023 End: 09-01-2023 ambulatory [facility] Work Phone: Start: 09-01-2023 End: 09-01-2023 Patient encounter procedure [facility]-Laboratory, Specimen Work Phone: Start: 01-08-2023 Telephone encounter Christy Perez MD Work Phone: General Surgery Comment on above: Results; Results - C t Start: 01-08-2023 End: 01-08-2023 Patient encounter procedure Christy Perez MD Work Phone: General Surgery Comment on above: Nausea (Primary Dx); Status post hernia repair Start: 01-06-2023 End: 01-06-2023 Subsequent hospital visit by physician Ct [facility] Comment on above: Epigastric pain [R10 .13] Start: 12-08-2022 Telephone encounter Christy Perez MD Work Phone: General Surgery Comment on above: Patient Question Start: 09-24-2022 End: 09-24-2022 ambulatory [facility] Work Phone: Start: 09-24-2022 End: 09-24-2022 Patient encounter procedure [facility]-Laboratory, Specimen Start: 08-14-2022 End: 08-14-2022 Home visit Tayla Whitman RN Work Phone: [facility] Comment on above: SN AGENCY DC W VISIT Start: 08-07-2022 End: 08-07-2022 Home visit Meagan Christopher RN Work Phone: [facility] Comment on above: SN ROUTINE Start: 08-01-2022 End: 08-01-2022 Home visit Andie Anderson LPN Work Phone: [facility] Comment on above: SN ROUTINE Start: 07-29-2022 End: 07-29-2022 Patient encounter procedure Christy Perez MD Work Phone: General Surgery Comment on above: Infected wound (Prim lefty Dx); S/P laparoscopic hernia repair Start: 07-25-2022 Telephone encounter Evon smith RN Work Phone: [facility] Comment on above: Home Care (Unable to reach patient for home care visit on 07/24/2022. No visit made. ) Start: 07-23-2022 End: 07-23-2022 Patient encounter procedure Christy Perez MD Work Phone: General Surgery Comment on above: Infected wound (Prim lefty Dx); S/P laparoscopic hernia repair Start: 07-23-2022 End: 07-23-2022 Home visit Evon Holloway RN Work Phone: [facility] Comment on above: SN UNMADE VISIT Start: 07-21-2022 End: 07-21-2022 Subsequent hospital visit by physician [facility] Comment on above: Infection following a procedure, organ and space surgical site, initial encounter [T81.43XA] Start: 07-21-2022 End: 07-21-2022 Home visit Shavonne Thorpe RN Work Phone: [facility] Comment on above: SN ROUTINE Start: 07-18-2022 End: 07-18-2022 Home visit Shavonne Thorpe RN Work Phone: [facility] Comment on above: SN ROUTINE Start: 07-16-2022 End: 07-16-2022 Home visit Vesna Lester RN Work Phone: [facility] Comment on above: SN ROUTINE Start: 07-14-2022 End: 07-14-2022 Home visit Vesna Lester RN Work Phone: [facility] Comment on above: SN ROUTINE Start: 07-12-2022 End: 07-12-2022 Home visit Eliza Adams BATCHER OPERATOR Work Phone: [facility] Comment on above: SN ROUTINE Start: 07-10-2022 End: 07-10-2022 Home visit Kiya Acevedo BATCHER OPERATOR Work Phone: [facility] Comment on above: SN ROUTINE Start: 07-09-2022 End: 07-09-2022 Patient encounter procedure Christy Perez MD Work Phone: General Surgery Comment on above: Postprocedural intra abdominal abscess (Primary Dx); Encounter for preprocedural laboratory examination; S/P hernia repair Start: 07-09-2022 End: 07-09-2022 Patient encounter status Christy Perez MD Work Phone: General Surgery Start: 07-04-2022 End: 07-04-2022 Home visit Nafisa Alexandra RN Work Phone: [facility] Comment on above: SN SOC Start: 07-03-2022 Telephone encounter Christy Perez MD Work Phone: Plastic Surgery Comment on above: Patient Question (Se e note); Returning Patient's Call Start: 07-02-2022 Telephone encounter Lori Patric aranda LPN Work Phone: [facility] Comment on above: Home Care (Confirmat ion call) Start: 06-27-2022 End: 06-27-2022 Patient encounter procedure Gloria Stewart PA-C Work Phone: General Surgery Comment on above: S/P laparoscopic her violet repair (Primary Dx) Start: 06-25-2022 End: 06-25-2022 Patient encounter procedure Christy Perez MD Work Phone: General Surgery Comment on above: Wound drainage (Prim lefty Dx); S/P laparoscopic hernia repair Start: 06-24-2022 Telephone encounter Christy Perez MD Work Phone: General Surgery Comment on above: Patient Question; Qu estion Start: 06-18-2022 End: 06-18-2022 Patient encounter procedure Gloria Stewart PA-C Work Phone: General Surgery Comment on above: S/P hernia repair (P rimary Dx); Incisional hernia, without obstruction or gangrene Start: 06-11-2022 End: 06-11-2022 Patient encounter procedure Gloria Stewart PA-C Work Phone: General Surgery Comment on above: S/P hernia repair (P rimary Dx); Incisional hernia, without obstruction or gangrene Start: 05-21-2022 End: 05-21-2022 Admission to [place] [id number] Work Phone: [facility] Start: 05-21-2022 End: 05-21-2022 [place] [address] Work Phone: Pre Anesthesia Comment on above: Preoperative examina tion (Primary Dx); Migraine without aura and without status migrainosus, not intractable; Acquired hypothyroidism; Anxiety and depression; Fibromyalgia; Levoscoliosis of thoracic spine; Gastroesophageal reflux disease with esophagitis, unspecified whether hemorrhage; Dysphagia, unspecified type; Irritable bowel syndrome with both constipation and diarrhea; Obesity (BMI 30-39.9); BMI 33.0-33.9,adult Start: 05-21-2022 End: 05-21-2022 Preprocedural examination done [facility] Work Phone: Pre Anesthesia Start: 05-08-2022 End: 05-08-2022 Orders Only Christy Perez MD Work Phone: General Surgery Comment on above: Incisional hernia, w ithout obstruction or gangrene (Primary Dx) Start: 10-07-2021 End: 10-07-2021 Patient encounter procedure [facility]-Radiology, [facility] Start: 09-20-2021 End: 09-20-2021 Patient encounter procedure [facility]-MRI - [facility] Start: 06-19-2021 End: 06-19-2021 Patient encounter procedure [facility]-Laboratory, Specimen Start: 04-13-2020 Patient encounter status [facility] Start: 03-22-2019 End: 03-22-2019 Subsequent hospital visit by physician Sixto Knowles Work Phone: [facility] General Surgery Comment on above: Arrived Start: 02-11-2018 Patient encounter Miriam Whitley [facility] Start: 01-28-2018 End: 01-28-2018 Patient encounter procedure Miriam Whitley PLANE TENDER-CLERK OF SCALES Work Phone: [facility] [place] [facility] Work Phone: Start: 12-03-2017 Ambulatory ABDIRAHMAN PRECIADO Facility:[facility] Start: 11-24-2017 Ambulatory ABDIRAHMAN PRECIADO [facility] Start: 02-19-2017 End: 02-20-2017 Ambulatory ANDRE ROSA Facility:[facility] Procedures Date Procedure Procedure Detail Performing Clinician Start: 09-27-2024 Us compl joint r-t w /image documentation Christy Perez MD Work Phone: Start: 08-08-2024 End: 08-08-2024 Urnls dip stick/tablet rgnt auto w/o microscopy Sixto Knowles MD Work Phone: Start: 07-11-2024 Urnls dip stick/tabl et rgnt auto w/o microscopy Laura Mcmanus MD Work Phone: Start: 02-29-2024 Urnls dip stick/tabl et rgnt auto w/o microscopy Laura Mcmanus MD Work Phone: Start: 02-01-2024 Urnls dip stick/tabl et reagent auto microscopy Laura Mcmanus MD Work Phone: Start: 02-01-2024 Urnls dip stick/tabl et rgnt auto w/o microscopy Laura Mcmanus MD Work Phone: Start: 11-24-2023 Diagnostic mammograp hy computer-aided detcj uni Sixto Simmons MD Work Phone: Start: 11-24-2023 Bx breast w/device 1 st lesion ultrasound guid Sixto Simmons MD Work Phone: Start: 10-27-2023 Digital breast tomosynthesis unilateral Cande Ely PLANE TENDER.CLERK OF SCALES Work Phone: Start: 10-27-2023 Us breast uni real t joselin with image limited Cande Ely PLANE TENDER.CLERK OF SCALES Work Phone: Start: 09-29-2023 Screening digital br east tomosynthesis bi Cande Ely PLANE TENDER.CLERK OF SCALES Work Phone: Start: 09-14-2023 Urine culture Start: 09-01-2023 Urine culture Start: 06-25-2022 Cul bact xcpt urine blood/stool aerobic isol Christy Perez MD Work Phone: Start: 10-07-2021 Radiography of thora cic spine Start: 10-07-2021 X-ray of lumbosacral spine Start: 09-20-2021 MRI of thoracic spine Start: 03-22-2019 OPERATIVE REPORT 3m Sca nning Start: 01-28-2018 End: 01-28-2018 Blood pressure within normal parameters - no follow-up required Miriam Whitley PLANE TENDER-CLERK OF SCALES Work Phone: Start: 01-28-2018 End: 01-28-2018 BMI documented as above normal parameters - follow-up documented Miriam Rhodesy PLANE TENDER-CLERK OF SCALES Work Phone: Start: 01-28-2018 End: 01-28-2018 Current medications documented Miriammatt Rhodesy PLANE TENDER-CLERK OF SCALES Work Phone: Start: 01-28-2018 End: 01-28-2018 Osteoarthritis assess Miriam Nasim Rhodesy PLANE TENDER-CLERK OF SCALES Work Phone: Start: 01-28-2018 End: 01-28-2018 Pain assessment documented as positive - follow-up documented Miriam A Wattley PLANE TENDER-CLERK OF SCALES Work Phone: Start: 01-28-2018 End: 01-28-2018 Tobacco non-user Miriam Rhodesy PLANE TENDER-CLERK OF SCALES Work Phone: Start: 03-13-2015 Lipid 1996 panel - S erasmo or Plasma Mammo/Bone Hosp Start: 05-26-2013 Colonoscopy Christy Sanchez MD Work Phone: Start: 05-26-2013 Mammography Christy Sanchez MD Work Phone: Plan of Treatment Date Care Activity Detail Author Start: 11-03-2027 Diabetes Screening Diabetes Screenin [facility] Start: 09-09-2027 Diabetes Screening Diabetes Screenin [facility] Start: 03-23-2027 Diabetes Screening Diabetes Screenin [facility] Start: 02-08-2027 Diabetes Screening Diabetes Screenin g [facility] Start: 05-19-2026 Diabetes Screening Diabetes Screenin g [facility] Start: 06-30-2025 DIABETES SCREEN DIABETES SCREEN [facility] Start: 06-27-2025 DIABETES SCREEN DIABETES SCREEN [facility] Start: 06-18-2025 DIABETES SCREEN DIABETES SCREEN [facility] Start: 06-08-2025 DIABETES SCREEN DIABETES SCREEN [facility] Start: 03-01-2025 End: 03-01-2025 Patient encounter procedure 03/01/2025 1:00 PM EDT Office Visit URO/Gynecology [address] [place] [address] Haydee Webb APRN.CLERK OF SCALES [address] [place] [address] Cysto w/Botox URO/Gynecology Comment on above: Cysto w/Botox Start: 02-20-2025 Influenza vaccination Influenz a Vaccine (Season Ended) [facility] Start: 02-05-2025 CYSTOSCOPY WHI CYSTOSCOPY WHI Procedures Routine OAB (overactive bladder) Expected: 02/05/2025 [facility] Work Phone: Comment on above: Expected: 02/05/2025 Start: 12-08-2024 End: 12-08-2024 Patient encounter procedure 12/08/2024 9:45 AM EDT Office Visit Urogynecology [address] [place] [address] Sixto Knowles MD [address] [place] [address] [facility] 11/02/24 - UTI Urogynecology Comment on above: [facility] iew 11/02/24 - UTI Start: 12-01-2024 End: 12-01-2024 Patient encounter procedure 12/01/2024 2:30 PM EDT Appointment [facility] - ENDO [id number] [place] [id number] [place] [address] [address] EGD/EUS (LINEAR) [facility] - ENDO Comment on above: EGD/EUS (LINEAR) Start: 11-15-2024 End: 11-15-2024 Patient encounter procedure 11/15/2024 2:30 PM EDT Appointment Ambulatory Surgery [address] [facility] [address] [place] [address] [address] Pancreatic duct dilated [K86.89] Ambulatory Surgery Comment on above: Pancreatic duct dila maikol [K86.89] Start: 11-03-2024 End: 11-03-2024 Patient encounter procedure [facility] - ENDO Comment on above: EUS W/? FNA Start: 10-25-2024 End: 10-25-2024 Patient encounter procedure 10/25/2024 2:45 PM EDT Office Visit General Surgery [address] [place] [address] Christy Perez MD [address] [id number] follow up General Surgery Comment on above: follow up Start: 09-29-2024 End: 09-29-2024 Patient encounter procedure 09/29/2024 8:30 AM EDT Office Visit General Surgery [address] [id number] Christy Perez MD [address] [address] follow up General Surgery Comment on above: follow up Start: 09-28-2024 Screening for malign ant neoplasm of breast Mammogram Screening [facility] Start: 09-27-2024 End: 09-27-2024 Patient encounter procedure 09/27/2024 2:25 PM EDT Appointment Radiology [address] [address] [place] HIP RT; MEDIAL-EVAL FOR SOURCE OF RT GROIN PAIN Radiology Comment on above: US HIP RT; MEDIAL-EV AL FOR SOURCE OF RT GROIN PAIN Start: 08-25-2024 End: 08-25-2024 Patient encounter procedure [facility] Comment on above: RLQ abdominal pain [ R10.31] Start: 08-24-2024 End: 08-24-2024 Patient encounter procedure 08/24/2024 2:45 PM EST Office Visit URO/Gynecology [address] [place] [address] Haydee Webb APRN.CLERK OF SCALES [address] [place] [address] Cysto w/Botox URO/Gynecology Comment on above: Cysto w/Botox Start: 08-23-2024 End: 11-22-2024 CREATININE BLD CREATININE BLD Lab Routine Encounter for preprocedural laboratory examination Expected: 08/23/2024, Expires: 11/22/2024 [facility] Comment on above: Expected: 08/23/2024 , Expires: 11/22/2024 Start: 08-22-2024 End: 08-22-2024 Patient encounter procedure 08/22/2024 9:00 AM EST Office Visit Urogynecology [address] [place] [address] Laura Mcmanus MD [address] [place] [address] 1 month follow up Urogynecology Comment on above: 1 month follow up Start: 08-10-2024 DIABETES SCREEN DIABETES SCREEN [facility] Start: 08-08-2024 End: 08-08-2024 ambulatory 08/08/2024 1:00 PM EST Procedure URO/Gynecology [address] [place] [address] Sixto Knowles MD [address] [place] [address] URO URO/Gynecology Comment on above: URO Start: 08-01-2024 End: 08-01-2024 Patient encounter procedure 08/01/2024 9:45 AM EST Office Visit URO/Gynecology [address] [place] [address] Sixto Knowles MD [address] [place] [address] follow up URO/Gynecology Comment on above: follow up Start: 07-11-2024 End: 07-11-2024 Patient encounter procedure 07/11/2024 9:00 AM EST Office Visit Urogynecology [address] [place] [address] Laura Mcmanus MD [address] [place] [address] follow up Urogynecology Comment on above: follow up Start: 06-22-2024 Advance Directive Discussion Advance Directive Discussion [facility] Start: 03-31-2024 End: 03-31-2024 Follow-up encounter 03/31/2024 1:00 PM EDT [facility] Urogynecology [address] [place] [address] Laura Mcmanus MD [address] [place] [address] 4 week follow up Urogynecology Comment on above: 4 week follow up Start: 03-04-2024 End: 06-03-2024 Basic metabolic 2000 panel - Serum or Plasma BASIC METABOLIC PANEL Lab Routine Recurrent UTI Hematuria, unspecified type Microscopic hematuria Expected: 03/04/2024, Expires: 06/03/2024 [facility] Comment on above: Expected: 03/04/2024 , Expires: 06/03/2024 Start: 02-29-2024 End: 02-29-2024 Patient encounter procedure 02/29/2024 1:30 PM EDT Office Visit Urogynecology [address] [place] [address] Laura Mcmanus MD [address] [place] [address] Large blood in urine, Schedule cystoscopy Urogynecology Comment on above: Large blood in urine , Schedule cystoscopy Start: 02-21-2024 Covid-19 Vaccine ( season) Covid-19 Vaccine () [facility] Start: 02-21-2024 Covid-19 Vaccine ( season) Covid-19 Vaccine () [facility] Start: 02-21-2024 Influenza vaccination Influenza Vacc ine (#1) [facility] Start: 01-27-2024 End: 01-27-2024 Patient encounter procedure 01/27/2024 9:30 AM EDT Office Visit Urogynecology [address] [place] [address] Laura Mcmanus MD [address] [place] [address] UTI Urogynecology Comment on above: UTI Start: 12-01-2023 End: 12-01-2023 Patient encounter procedure 12/01/2023 1:45 PM EDT Office Visit [facility] [address] [facility] [address] [place] [address] Sixto Simmons MD [address] [place] [address] New patient consult post biopsy [facility] Comment on above: New patient consult post biopsy Start: 11-24-2023 End: 11-24-2023 Patient encounter procedure 11/24/2023 8:30 AM EDT Appointment [facility] [address] [place] [address] Left breast complex cyst-Ultrasound biopsy [facility] Comment on above: Left breast complex cyst-Ultrasound biopsy Start: 10-01-2023 5,10-methylenetetrah ydr ofolate reductase gene analysis [facility] Start: 09-01-2023 Urine culture Urine Culture [facility] Start: 09-01-2023 Fluorescent treponem al antibody absorption test [facility] Start: 09-01-2023 Vitamin B6 measurement [facility] Start: 09-01-2023 [facility] Start: 08-14-2023 Screening for osteoporosis Bone Density Screening [facility] Start: 06-22-2023 Advance Directive Discussion Advance Directive Discussion [facility] Start: 02-20-2023 Covid-19 Vaccine ( season) Covid-19 Vaccine ( season) [facility] Start: 02-20-2023 Influenza vaccination INFLUENZA (#1) [facility] Start: 07-21-2022 End: 08-08-2023 Ct abdomen w/contrast material CT ABDOMEN W IVCON Radiology Routine Postprocedural intraabdominal abscess Expected: 07/21/2022, Expires: 08/08/2023 [facility] Work Phone: Comment on above: Expected: 07/21/2022 , Expires: 08/08/2023 Start: 07-09-2022 End: 09-08-2022 CBC W Auto Differential panel - Blood CBC + DIFF Lab Routine Postprocedural intraabdominal abscess Expected: 07/09/2022, Expires: 09/08/2022 [facility] Work Phone: Comment on above: Expected: 07/09/2022 , Expires: 09/08/2022 Start: 07-09-2022 End: 09-08-2022 CREATININE BLD CREATININE BLD Lab Routine Encounter for preprocedural laboratory examination Expected: 07/09/2022, Expires: 09/08/2022 [facility] Work Phone: Comment on above: Expected: 07/09/2022 , Expires: 09/08/2022 Start: 06-22-2022 ADVANCE DIRECTIVE DISCUSSION ADVANCE DIRECTIVE DISCUSSION [facility] Start: 02-20-2022 Influenza vaccination INFLUENZA (#1) [facility] Start: 12-02-2021 DTaP/Tdap/Td vaccine (2 - Td) DTaP/Tdap/Td vaccine (2 - Td) [place], [place] Start: 12-02-2021 Urine microalbumin profile [facility] Start: 09-09-2021 COVID-19 VACCINE (4 - Booster for Moderna series) COVID-19 VACCINE (4 - Booster for Moderna series) [facility] Start: 09-09-2021 COVID-19 VACCINE (4 - Moderna series) COVID-19 VACCINE (4 - Moderna series) [facility] Start: 06-22-2021 ADVANCE DIRECTIVE DISCUSSION ADVANCE DIRECTIVE DISCUSSION [facility] Start: 06-22-2021 DEPRESSION ASSESSMENT DEPRESSION ASS ESSMENT [facility] Start: 2020 Pneumococcal Vaccine : 65+ (1 of 1 - PCV) Pneumococcal Vaccine: 65+ (1 of 1 - PCV) [facility] Start: 2020 PNEUMOCOCCAL: 65+ (1 - PCV) PNEUMOCOCCAL: 65+ (1 - PCV) [facility] Start: 03-13-2020 Lipid panel Lipid Screening [facility] Start: 03-13-2020 LIPID SCREEN LIPID SCREEN [facility] Start: 05-26-2018 Colonoscopy COLONOSCOPY [facility] Start: 05-26-2018 COLORECTAL CANCER SCREENING COLORECTAL CANCER SCREENING [facility] Start: 05-26-2018 Screening for malign ant neoplasm of colon [facility] Start: 01-28-2018 End: 01-28-2018 Bone &/joint imaging 3 phase study Bone and or joint imaging - 3 phase study [facility] Work Phone: Start: 01-28-2018 End: 01-28-2018 Appointment Appointment [facility] Work Phone: Start: 2015 RSV Vaccine (1 - 1-d ose 60+ series) RSV Vaccine (1 - 1-dose 60+ series) [facility] Start: 2015 RSV Vaccine (1 - Ris k 60-74 years 1-dose series) RSV Vaccine (1 - Risk 60-74 years 1-dose series) [facility] Start: 05-26-2014 Mammography MAMMOGRAM [facility] Start: 05-26-2014 Screening for malign ant neoplasm of breast Mammogram Screening [facility] Start: 2005 Breast cancer screen Breast cancer s creen [place], [place] Start: 2005 Colon cancer screen colonoscopy Colon cancer screen colonoscopy [place], [place] Start: 2005 Pneumococcal Vaccine : 50+ (1 of 1 - PCV) Pneumococcal Vaccine: 50+ (1 of 1 - PCV) [facility] Start: 2005 Shingles Vaccine (1 of 2) Shingles Vaccine (1 of 2) [place] Start: 2005 SHINGRIX VACCINE (1 of 2) SHINGRIX VACCINE (1 of 2) [facility] Start: 2000 COLOGUARD (FIT-DNA) COLOGUARD (FIT-D NA) [facility] Start: [address] COLONOGRAPHY [facility] Start: 2000 FECAL OCCULT BLOOD FECAL OCCULT BLOO D [facility] Start: 2000 Screening for malign ant neoplasm of colon [facility] Start: 2000 SIGMOIDOSCOPY SIGMOIDOSCOPY [facility] Start: 1995 Diabetes screen Diabetes screen [place], [place] Start: 1995 Lipid screen Lipid screen [place], [place] Start: 1976 Cervical cancer screen Cervical canc er screen [place], [place] Start: 1973 ANNUAL PCP TEAM BUGGY OPERATOR VEGA DISEASE VISIT ANNUAL PCP TEAM CHRONIC DISEASE VISIT [facility] Start: 1973 Depression Screening Depression Scre ening [facility] Start: 1970 HIV screen HIV screen [place], [place] Start: 1955 Hepatitis C screen Hepatitis C scree n [place] 5,10-methylenetetrah ydr ofolate reductase gene analysis [facility] Bacteria identified in Urine by Culture URINE CULTURE Microbiology Routine Mixed stress and urge urinary incontinence Dysuria 02/01/2024 10:38 AM EDT [facility] End: 02-28-2025 Bacteria identified in Urine by Culture URINE CULTURE Microbiology Routine Dysuria Recurrent UTI Daily for 20 Occurrences starting 02/29/2024 until 02/28/2025 [facility] Work Phone: Comment on above: Daily for 20 Occurre nces starting 02/29/2024 until 02/28/2025 Bacteria identified in Wound by Culture WOUND CULTURE AND GRAM STAIN Microbiology Routine Wound drainage S/P laparoscopic hernia repair 06/25/2022 12:05 PM EST [facility] Work Phone: End: 09-22-2025 CT Abdomen and Pelvis W contrast IV CT ABD/PEL W IVCON Radiology Routine RLQ abdominal pain 1 Occurrences starting 08/23/2024 until 09/22/2025 [facility] Work Phone: Comment on above: 1 Occurrences starti ng 08/23/2024 until 09/22/2025 CT Abdomen and Pelvi s W contrast IV CT ABD/PEL W IVCON Radiology Routine RLQ abdominal pain 08/25/2024 10:22 AM EST [facility] Work Phone: Ct abdomen w/contras t material CT ABDOMEN W IVCON Radiology Routine Epigastric pain Nausea Status post hernia repair 01/06/2023 3:49 PM EDT [facility] Work Phone: End: 04-03-2025 CT Kidney WO and W contrast IV CT UROGRAM WO/W IVCON Radiology Routine Hematuria, unspecified type Microscopic hematuria 1 Occurrences starting 03/04/2024 until 04/03/2025 [facility] Comment on above: 1 Occurrences starti ng 03/04/2024 until 04/03/2025 CYSTOSCOPY WHI CYSTOSCOPY [facility]I Procedures Routine Dysuria Abnormal urinalysis Recurrent UTI 1 Occurrences starting 02/01/2024 [facility] Work Phone: Comment on above: 1 Occurrences starti ng 02/01/2024 CYSTOSCOPY WHI CYSTOSCOPY WHI Procedures Routine OAB (overactive bladder) 1 Occurrences starting 08/01/2024 [facility] Comment on above: 1 Occurrences starti ng 08/01/2024 CYSTOSCOPY WHI CYSTOSCOPY WHI Procedures Routine OAB (overactive bladder) 1 Occurrences starting 08/24/2024 [facility] Work Phone: Comment on above: 1 Occurrences starti ng 08/24/2024 End: 09-08-2025 EGD - THERAPEUTIC, EUS, OR TUBE INTERVENTIONS EGD - THERAPEUTIC, EUS, OR TUBE INTERVENTIONS Endoscopy Routine Pancreatic duct dilated 1 Occurrences starting 09/08/2024 until 09/08/2025 [facility] Work Phone: Comment on above: 1 Occurrences starti ng 09/08/2024 until 09/08/2025 End: 10-27-2025 EGD DIAGNOSTIC EGD DIAGNOSTIC Endoscopy Routine Heartburn 1 Occurrences starting 10/27/2024 until 10/27/2025 [facility] Work Phone: Comment on above: 1 Occurrences starti ng 10/27/2024 until 10/27/2025 Fluorescent treponem al antibody absorption test [facility] Incentive spirometry Incentive s pirometry Respiratory Care Routine Q1H PRN until discontinued [facility]: Q1H PRN until discon tinued starting 03/22/2019 Initiate Oxygen Ther apy Protocol Initiate Oxygen Therapy Protocol Respiratory Care Routine Daily until discontinued starting 03/22/2019 [facility] Comment on above: Daily until disconti nued starting 03/22/2019 Patient Education \cps-sql1\CPS_ PtEducati on\CDC_FALL_PREVENTION. pdf [facility] Work Phone: Phase I & II - meter ed glucose Phase I & II - metered glucose Point of Care Testing Routine As Needed until discontinued starting 03/22/2019 [facility] Comment on above: As Needed until disc ontinued starting 03/22/2019 End: 03-22-2019 Pulse Oximetry Spot Check Pulse Oximetry Spot Check Respiratory Care Routine One Time for 1 Occurrences starting 03/22/2019 until 03/22/2019 [facility] Comment on above: One Time for 1 Occur rences starting 03/22/2019 until 03/22/2019 End: 11-24-2023 SURGICAL PATHOLOGY [facility] Work Phone: Comment on above: ONCE for 1 Occurrenc es starting 11/24/2023 until 11/24/2023, 1 completed Urinalysis complete panel - Urine URINALYSIS, WITH MICROSCOPIC Lab Routine Abnormal urinalysis Hematuria, unspecified type Microscopic hematuria Ordered: 03/04/2024 [facility] Comment on above: Ordered: 03/04/2024 URODYNAMICS WHI URODYNAMICS WHI Procedures Routine OAB (overactive bladder) Ordered: 08/01/2024 [facility] Work Phone: Comment on above: Ordered: 08/01/2024 End: 12-03-2024 US Guidance for biopsy of Breast - left US BIOPSY BREAST LEFT Radiology Routine Abnormal finding on breast imaging 1 Occurrences starting 11/04/2023 until 12/03/2024 [facility] Work Phone: Comment on above: 1 Occurrences starti ng 11/04/2023 until 12/03/2024 [facility] Immunizations Immunization Date Immunization Notes Care Provider Fa cili 05-19-2023 influenza (HD-IIV4) vaccine, age 65+ yr, high dose, quadrivalent, PF (FLUZONE HIGH-DOSE) Mammo/Bone [facility] 05-19-2023 influenza virus vaccine, unspecified formulation Xr [facility] 05-07-2022 influenza, high dose seasonal, preservative-free Christy Perez MD Work Phone: [facility] 05-31-2019 zoster vaccine recombinant Christy Perez MD Work Phone: [facility] 03-17-2019 zoster vaccine recombinant Christy Perze MD Work Phone: [facility] 03-03-2019 influenza, injectabl e, quadrivalent, preservative free Christy Perez MD Work Phone: [facility] 03-28-2016 influenza, injectabl e, quadrivalent, contains preservative Christy Perez MD Work Phone: [facility] 03-13-2015 influenza, seasonal, injectable Christy Perez MD Work Phone: [facility] 12-03-2011 tetanus toxoid, reduced diphtheria toxoid, and acellular pertussis vaccine, adsorbed Christy Perez MD Work Phone: [facility] Work Phone: 04-25-2011 influenza virus vaccine, unspecified formulation Christy Perez MD Work Phone: [facility] No information available. Ophelia Ibarra LPN [facility] Work Phone: Payers Date Payer Category Payer Self-pay [id number] 2021 Medicare [employer]IC[employer] [facility] [employer] [id number] 2021-Present [phone] [address] [place] [address] Medicare [id number] 2021 Private Health Insurance [facility] [id number] 2020 Medicare (Managed Care) [facility] [id number] 2020 Unknown 2020 Medicare [id number] 2015 Unknown [employer] M [employer] [address] xxxxxxxxxxxx 2015-Present [phone] [address] [place] [address] xxxxxxxxxxxx [id number] Medicare [id number] Unknown [id number] Unknown [id number] Unknown [id number] Unknown [id number] Unknown [id number] Social History Date Type Detail Facility Start: 08-08-2021 End: 06-01-2023 Assertion Unknown if ever smoked [facility] Work Phone: Start: 06-10-2013 End: 03-22-2019 Tobacco smoking status NHIS Never smoker [facility] Start: 03-22-2019 End: 12-17-2022 Alcohol intake Not Currently [employer] Start: 1955 Sex Assigned At Not on file [facility] Start: 1955 Sex Assigned At Female [facility] Start: 06-10-2013 Tobacco use and exposure Smokeless tobacco non-user [facility] Start: 05-08-2022 End: 08-24-2024 Alcohol intake Current drinker of alcohol (finding) [facility] Start: 02-28-2011 Alcohol Comment [facility] Start: 04-28-2022 End: 05-21-2022 Exposure to SARS-CoV-2 (event) Not sure [facility] Start: 12-17-2022 End: 11-04-2024 History of Social function [facility] National Score (1-10 0), lower number is lower risk 50 [facility] Has the electric, [employer], oil, or water company threatened to shut off services in your home in past 12Mo No [facility] (I/We) worried hay er (my/our) food would run out before (I/we) got money to buy more. Never true [facility] Medical Equipment Procedure Code Equipment Code Equipment Origin al Text Equipment Identifier Dates Mesh Parietene D s [id number] - [id number] Start: 06-06-2022 Functional Status Date Assessment Result Facility 05-20-2023 Are you deaf, or do you have serious difficulty hearing No 05/20/2023 2:26 PM Gloria Trujillo RN No [facility] 05-20-2023 Are you blind, or do you have serious difficulty seeing, even when wearing glasses No 05/20/2023 2:26 PM Gloria Trujillo RN No [facility] 05-20-2023 Do you have serious difficulty walking or climbing stairs No 05/20/2023 2:26 PM Gloria Trujillo RN No [facility] 05-20-2023 Do you have difficul ty dressing or bathing No 05/20/2023 2:26 PM Gloria Trujillo RN No [facility] 05-20-2023 Because of a physica l, mental, or emotional condition, do you have difficulty doing errands alone such as visiting a physician's office or shopping No 05/20/2023 2:26 PM Gloria Trujillo RN No [facility] Mental Status Date Assessment Result Facility 05-20-2023 Because of a physica l, mental, or emotional condition, do you have serious difficulty concentrating, remembering, or making decisions No 05/20/2023 2:26 PM Gloria Trujillo RN No [facility] Clinical Notes 10-04-2016 to 11-04-2024 Addendum Note - Roxana Robert RN - 10/27/2024 10:38 AM EDTAddendum Note - Roxana Robert RN - 10/27/2024 10:38 AM EDTTelephone Encounter - Roxana Robert RN - 10/27/2024 10:37 AM EDT Note Date & Type Note Facility 11-04-2024 Note HNO ID: [id number] Author: KAILEE PEOPLES CPhT Service: ? Author Type: Shot Tube Machine Tender Type: Plan of Care Filed: 11/04/2024 17:26 Note Text: PHARMACY BEDSIDE DELIVERY SERVICE Patient Name: Tevin Villagomez The marked outpatient medications were Filled at: [facility] and delivered to the patient's bedside to [address] [place] [address]. Medication List CHANGE how you take these medications cephALEXin 500 mg capsule Commonly known as: KEFLEX Take 1 capsule by mouth three times a day for 3 days. What changed: medication strength how much to take when to take this levothyroxine 75 mcg tablet Commonly known as: SYNTHROID Take 1 tablet by mouth once daily. What changed: medication strength when to take this sertraline 50 mg tablet Commonly known as: ZOLOFT Take 1 tablet by mouth two times a day. What changed: how much to take when to take this CONTINUE taking these medications atorvastatin 10 mg tablet Commonly known as: LIPITOR gabapentin 600 mg tablet Commonly known as: NEURONTIN LANSOPRAZOLE ORAL MULTIVITAMIN 50 PLUS Tab Generic drug: Akhjcgajsxist-Xndsjejp-Glpprk MYRBETRIQ ORAL promethazine 25 mg tablet Commonly known as: PHENERGAN Take 1 tablet by mouth every 4 hours as needed for Nausea/Vomiting. SUMAtriptan 100 mg tablet Commonly known as: IMITREX Take 1 tablet by mouth as needed. at onset of headache.May repeat after 2 hours. traMADol 50 mg tablet Commonly known as: ULTRAM You might also be taking other medications not listed above. If you have questions about any of your other medications, talk to the person who prescribed them or your Primary Care Provider. STOP taking these medications folic acid 1 mg tablet ibuprofen 600 mg tablet Commonly known as: MOTRIN LORazepam 1 mg tablet Commonly known as: ATIVAN meloxicam 7.5 mg tablet Commonly known as: MOBIC PROLIA 60 mg/mL Generic drug: denosumab sucralfate 1 gram tablet Commonly known as: CARAFATE Kailee Peoples CPhT PAGER: [phone] November 04, 2024 5:26 PM [facility] 11-04-2024 Note HNO ID: [id number] Author: INDERJIT QUIROGA LSW Service: Care Management Author Type: Upscale Security Officer Type: Care Mgt Initial Assessment Filed: 11/04/2024 14:45 Note Text: CARE MANAGEMENT: ASSESSMENT AND DISCHARGE PLAN SERVICE DATE: November 04, 2024 SERVICE TIME: 2:40 PM PCP: Cande Ely APRN.CNP Primary Contact: Extended Emergency Contact Information Primary Emergency Contact: Darwin Villagomez Address: [address] [place] [address] Mobile Relation: Spouse Secondary Emergency Contact: Haydee Bee [facility] Mobile Relation: Grandchild Admission Status: Observation [place] Provider[place] [facility] [place] Planning requested by: Per Department Practice Potential Transition Plans Home Advance Directives Current Advance Directive: Health Care Power of Oracle Sql Developer In Chart: No Customer Relations Representative Attempted to Assist with AD Completion: Yes Action: Education Provided Current Living Arrangements and Support Lives with: Spouse/significant other, Children Type of Residence: Private Residence (House) Does the patient have to climb stairs at home?: Yes, stairs outside the home, stairs within the home Support: Children, Spouse/significant other, Family members How do you manage to accomplish the following: Independent: Bathe/Shower, Ambulation, Dress, Meals/Meal Prep, Going to the bathroom, Transportation to appointments/community, Medication Management Current Services/Equipment Current Post-Acute Service(s): None Discharge Planning Patient Goal(s): [place] of Choice Explained: [place] of Choice Given: No Reason Not Given: No placements necessary Are you interested in bedside delivery of your medications? Yes Discharge Planning Participant(s): Patient Patient/Family Comments: Caregiver Assessment: Caregiver is ready, willing and able to meet the patient's needs as recommended by the inter-professional team: No Caregiver needed Transport at Discharge: Transportation Arrangements: Car Needs Prior to Discharge: Needs Prior to Discharge: To Be Determined Post-Acute Discharge Plan: Pt presented to the ED 11/02/24 due to concerns of abd pain. Hx of UTIs. CM met with pt at bedside. Pt AANDOx3. Pt lives in a 2-story house in [place] with her , Darwin, and her dtr Krys. IPTA. Drives. No dme. Pt reported no concerns regarding safety, food insecurity, affording utlities, or transportation. Family to transport at mn. CM discussed HCPOA and pt said she has a form and will bring it in. She said her Darwin is HCPOA. Anticipate HNN. : No HCPOA [place] on file within [employer] and verified to be current as of date/time of this note Legal Next of Kin Hierarchy per [place] Revised Code: Legal Spouse Darwin Villagomez [phone] Majority of Adult Children (consensus if possible) [facility]ica [facility] [phone] Krys Parents Majority of Adult Siblings (consensus if possible) Nearest Blood Relative Haydee Bee (granddtr) [phone] MARK Carcamo November 04, 2024 SIGNATURE: MARK Carcamo PATIENT NAME: Tevin Villagomez DATE: November 04, 2024 TIME: 2:40 PM [facility] 10-27-2024 Note Addended by: ROXANA ROBERT on: 10/27/2024 10:38 AM Modules accepted: Orders [facility] 10-27-2024 Miscellaneous Notes Addended by: ROXANA ROBERT on: 10/27/2024 10:38 AM Modules accepted: Orders EGD order added. Roxana Robert RN Images from the original note were not included. Christy Perez MD Issa, Khaled, MD; Ruth Casiano II saw Rimma in the office today. There is no evidence for an acute abdomen. She feels her episodes of abdominal pain are similar to her gallbladder attacks. I did find a small fat-containing umbilical hernia which is tender with palpation. If EUS is negative, we will proceed with hernia repair. She is also complaining of worsening heartburn and is concerned she may have recurrence of the esophageal stricture that was dilated by Dr. Ojeda in the past. She was wondering if you can address this too? Thanks for your help-Christy Montelongo: Add EGD with possible esophageal dilation to the already scheduled EUS. EGD first then EUS. Ismael Mcconnell MD documented in this encounter [facility] 10-27-2024 Telephone encounter Note EGD order added. Roxana Robert RN [facility] 10-27-2024 Telephone encounter Note Images from the original note were not included. Christy Perez MD Issa, Khaled, MD; Naeem Adm Ruth Vu II Ko Soriano -I saw Rimma in the office today. There is no evidence for an acute abdomen. She feels her episodes of abdominal pain are similar to her gallbladder attacks. I did find a small fat-containing umbilical hernia which is tender with palpation. If EUS is negative, we will proceed with hernia repair. She is also complaining of worsening heartburn and is concerned she may have recurrence of the esophageal stricture that was dilated by Dr. Ojeda in the past. She was wondering if you can address this too? Thanks for your help-Christy Monetlongo: Add EGD with possible esophageal dilation to the already scheduled EUS. EGD first then EUS. Ismael Mcconnell MD [facility] 10-25-2024 Instructions Christy Perez MD - 10/25/2024 3:05 PM EDT 1. Umbilical hernia without obstruction or gangrene (K42.9) - Possible small umbilical hernia noted on physical exam, causing tenderness around the umbilical region. - Discussed potential surgical intervention if endoscopic ultrasound (EUS) by Dr. Mcconnell reveals no significant findings. Procedure would involve a small incision to remove any protruding fatty tissue and repair muscle edges with sutures, without the use of mesh. 2. Dilation of pancreatic duct (HCC) (K86.89) - CT scan shows dilated pancreatic duct, more prominent than previous imaging. - Reviewed CT findings with radiologist; MRI deemed unnecessary. - Scheduled for endoscopic ultrasound (EUS) with Dr. Mcconnell on the to further evaluate the pancreatic duct. - Discussed potential outcomes of EUS; best case scenario is no significant findings. 3. Nausea (R11.0) 4. Heartburn (R12) - Episodic abdominal pain rated up to 8/10, radiating to sides and back, associated with nausea and heartburn. - Pain exacerbated by bending and squatting; occasional onset during eating. - Currently taking omeprazole once daily at bedtime for heartburn. - Advised to continue omeprazole, ensuring it is taken on an empty stomach for optimal absorption. - Discussed possibility of esophageal dilation during EUS if necessary, as patient has a history of esophageal strictures requiring dilation. documented in this encounter [facility] 10-25-2024 Note HNO ID: [id number] Author: CHRISTY PEREZ MD Service: ? Author Type: Physician Type: Progress Notes Filed: 10/25/2024 15:18 Note Text: PROGRESS NOTES PATIENT NAME: Tevin Villagomez Assessment ASSESSMENT/PLAN: (K42.9) Umbilical hernia without obstruction or gangrene (K86.89) Dilation of pancreatic duct (HCC) (R11.0) Nausea (R12) Heartburn 1. Umbilical hernia without obstruction or gangrene (K42.9) - Possible small umbilical hernia noted on physical exam, causing tenderness around the umbilical region. - Discussed potential surgical intervention if endoscopic ultrasound (EUS) by Dr. Mcconnell reveals no significant findings. Procedure would involve a small incision to remove any protruding fatty tissue and repair muscle edges with sutures, without the use of mesh. 2. Dilation of pancreatic duct (HCC) (K86.89) - CT scan shows dilated pancreatic duct, more prominent than previous imaging. - Reviewed CT findings with radiologist; MRI deemed unnecessary. - Scheduled for endoscopic ultrasound (EUS) with Dr. Mcconnell on the to further evaluate the pancreatic duct. - Discussed potential outcomes of EUS; best case scenario is no significant findings. - There is no contraindication at this time to proceed with the procedure as her pain is not acute. 3. Nausea (R11.0) 4. Heartburn (R12) - Episodic abdominal pain rated up to 8/10, radiating to sides and back, associated with nausea and heartburn. - Pain exacerbated by bending and squatting; occasional onset during eating. - Currently taking omeprazole once daily at bedtime for heartburn. - Advised to continue omeprazole, ensuring it is taken on an empty stomach for optimal absorption. - Discussed possibility of esophageal dilation during EUS if necessary, as patient has a history of esophageal strictures requiring dilation. No orders found for this visit on 10/25/24. SUBJECTIVE CHIEF COMPLAINT: Patient presents with: Post Op Follow Up INTERVAL HISTORY OF PRESENT ILLNESS: Tevin is a 69-year-old female presenting with episodic abdominal pain, nausea, and heartburn. Tevin reports experiencing episodic abdominal pain, nausea, and heartburn. The abdominal pain is described as similar to previous gallbladder attacks, located across the abdomen above and around the umbilicus, and radiating to the sides and back. The pain is rated as an 8/10 at its worst and is exacerbated by activities such as bending over and squatting, as well as eating, though she denies overeating. Tevin also reports a return of heartburn, which she manages with omeprazole taken once daily at bedtime. She has a history of esophageal dilation performed by Dr. Ojeda. She has obtained a CT scan to rule out lower abdominal wall hernia which was negative for hernias. I also obtained a right groin ultrasound which was also negative for hernia. The CT scan however did show dilated pancreatic duct which has increased in size. She has been referred to Dr. Mcconnell for an endoscopic ultrasound which is scheduled for November 03. 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 Ojeda Gout Hiatal hernia Leiomyoma 04/22/2011 ESOPHAGUS, excised 04/22/2011 Levoscoliosis of thoracic spine Migraine Neck pain cervicle fusion 03/05 Open wound with complication 08/22/2024 Osteoarthritis ? RA Dr Lindsey mtx and [place] Osteoporosis Other specified abdominal hernia without obstruction or gangrene S/P Botox injection 07/2024 botox injection in bladder Vaginal vault prolapse after hysterectomy PAST SURGICAL HISTORY Procedure Laterality Date ARTHROSCOPY KNEE DIAGNOSTIC W/WO SYNOVIAL BX SPX Right 2015 meniscus repair BLADDER SURGERY HX BREAST AUGMENTATION WITH IMPLANT 1991 Breast augmentation BUNIONECTOMY, LAPIDUS-TYPE Bilat. COMPLEX CYSTOMETROGRAM VOIDING PRESSURE STUDIES 08/08/2024 CYSTOURETHROSCOPY 08/08/2024 CYSTOURETHROSCOPY INJ CHEMODENERVATION BLADDER 08/24/2024 EGD 02/2016 Dr. Ojeda EGD - BALLOON DILATION, GUIDE 01/2022 ESOPHAGOGASTRODUODENOSCOPY TRANSORAL DIAGNOSTIC 11/[address] Ojeda EXT HYSTERECTOMY,W/PARTIAL VAGINECTO benign causes I AND D ABSCESS, COMPLICATED N/A 06/28/2022 abdominal wound abscess KIDNEY STONE SURGERY HX Ureteral stents KNEE SURGERY HX Right PALOMO W/O FACETEC FORAMOT/DSC /2 VRT SGM CRV 02/2014 cervicle fusion LAPAROSCOPY SURG CHOLECYSTECTOMY 04/2011 Cholecystectomy, lap MAMMOTOME BIOPSY RIGHT 2013 NECK SURGERY HX PAST SURGICAL HISTORY OF 2015 MOHS for basal cell on her back PAST SURGICAL HISTORY OF 03/2016 R TKA PAST SURGICAL HISTORY OF 06/28/2022 Incision a (more content not included)... [facility] 10-25-2024 History of Present illness Narrative PROGRESS NOTES PATIENT NAME: Tevin Villagomez Assessment ASSESSMENT/PLAN: (K42.9) Umbilical hernia without obstruction or gangrene (K86.89) Dilation of pancreatic duct (HCC) (R11.0) Nausea (R12) Heartburn 1. Umbilical hernia without obstruction or gangrene (K42.9) - Possible small umbilical hernia noted on physical exam, causing tenderness around the umbilical region. - Discussed potential surgical intervention if endoscopic ultrasound (EUS) by Dr. Mcconnell reveals no significant findings. Procedure would involve a small incision to remove any protruding fatty tissue and repair muscle edges with sutures, without the use of mesh. 2. Dilation of pancreatic duct (HCC) (K86.89) - CT scan shows dilated pancreatic duct, more prominent than previous imaging. - Reviewed CT findings with radiologist; MRI deemed unnecessary. - Scheduled for endoscopic ultrasound (EUS) with Dr. Mcconnell on the to further evaluate the pancreatic duct. - Discussed potential outcomes of EUS; best case scenario is no significant findings. - There is no contraindication at this time to proceed with the procedure as her pain is not acute. 3. Nausea (R11.0) 4. Heartburn (R12) - Episodic abdominal pain rated up to 8/10, radiating to sides and back, associated with nausea and heartburn. - Pain exacerbated by bending and squatting; occasional onset during eating. - Currently taking omeprazole once daily at bedtime for heartburn. - Advised to continue omeprazole, ensuring it is taken on an empty stomach for optimal absorption. - Discussed possibility of esophageal dilation during EUS if necessary, as patient has a history of esophageal strictures requiring dilation. No orders found for this visit on 10/25/24. SUBJECTIVE CHIEF COMPLAINT: Patient presents with: Post Op Follow Up INTERVAL HISTORY OF PRESENT ILLNESS: Tevin is a 69-year-old female presenting with episodic abdominal pain, nausea, and heartburn. Tevin reports experiencing episodic abdominal pain, nausea, and heartburn. The abdominal pain is described as similar to previous gallbladder attacks, located across the abdomen above and around the umbilicus, and radiating to the sides and back. The pain is rated as an 8/10 at its worst and is exacerbated by activities such as bending over and squatting, as well as eating, though she denies overeating. Tevin also reports a return of heartburn, which she manages with omeprazole taken once daily at bedtime. She has a history of esophageal dilation performed by Dr. Ojeda. She has obtained a CT scan to rule out lower abdominal wall hernia which was negative for hernias. I also obtained a right groin ultrasound which was also negative for hernia. The CT scan however did show dilated pancreatic duct which has increased in size. She has been referred to Dr. Mcconnell for an endoscopic ultrasound which is scheduled for November 03. 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 Ojeda Gout Hiatal hernia Leiomyoma 04/22/2011 ESOPHAGUS, excised 04/22/2011 Levoscoliosis of thoracic spine Migraine Neck pain cervicle fusion 03/05 Open wound with complication 08/22/2024 Osteoarthritis ? RA Dr Lindsey mtx and [place] Osteoporosis Other specified abdominal hernia without obstruction or gangrene S/P Botox injection 07/2024 botox injection in bladder Vaginal vault prolapse after hysterectomy PAST SURGICAL HISTORY Procedure Laterality Date ARTHROSCOPY KNEE DIAGNOSTIC W/WO SYNOVIAL BX SPX Right 2015 meniscus repair BLADDER SURGERY HX BREAST AUGMENTATION WITH IMPLANT 1991 Breast augmentation BUNIONECTOMY, LAPIDUS-TYPE Bilat. COMPLEX CYSTOMETROGRAM VOIDING PRESSURE STUDIES 08/08/2024 CYSTOURETHROSCOPY 08/08/2024 CYSTOURETHROSCOPY INJ CHEMODENERVATION BLADDER 08/24/2024 EGD 02/2016 Dr. Ojeda EGD - BALLOON DILATION, GUIDE 01/2022 ESOPHAGOGASTRODUODENOSCOPY TRANSORAL DIAGNOSTIC 11/[address] Ojeda EXT HYSTERECTOMY,W/PARTIAL VAGINECTO benign causes I & D ABSCESS, COMPLICATED N/A 06/28/2022 abdominal wound abscess KIDNEY STONE SURGERY HX Ureteral stents KNEE SURGERY HX Right PALOMO W/O FACETEC FORAMOT/DSC 1/2 VRT SGM CRV 02/2014 cervicle fusion LAPAROSCOPY SURG CHOLECYSTECTOMY 04/2011 Cholecystectomy, lap MAMMOTOME BIOPSY RIGHT 2013 NECK SURGERY HX PAST SURGICAL HISTORY OF 2015 MOHS for basal cell on her back PAST SURGICAL HISTORY OF 03/2016 R TKA PAST SURGICAL HISTORY OF 06/28/2022 Incision and drainage of abdominal wound infection/abscess. Dr. Glynn REPAIR INCISIONAL HERNIA,REDUCIBLE 06/06/[address] Perez RPR PARAESOPH HIATAL HERNIA W/LAPT W/O MESH 04/22/2011 Laparotomy, Excision of esophageal leiomyoma and repair of esophageal wall, Esophagogastroscopy, Aditi fundoplication for Short esophagus, Type I hiatal hernia and Esophageal leiomyoma TONSILLECTOMY PRIMARY/SECONDARY <AGE 12 A CHILD Tonsillectomy ALLERGIES: Patient has no known allergies. MEDICATIONS: Current Outpatient Medications Medication Sig atorvastatin (LIPITOR) 10 mg tablet Take 1 tablet by mouth every afternoon. buPROPion SR (WELLBUTRIN SR) 100 mg 12 hr tablet Take 100 mg by mouth two times a day. lansoprazole (PREVACID) 30 mg capsule Take 30 mg by mouth once daily. mirtazapine (REMERON) 15 mg tablet Take 15 mg by mouth daily at bedtime. pregabalin (LYRICA) 50 mg capsule Take 50 mg by mouth two times a day. zolpidem (AMBIEN) 5 mg tablet Take 5 mg by mouth at bedtime as needed. solifenacin (VESICARE) 5 mg tablet Take 1 tablet by mouth once daily. estradiol (ESTRACE) 0.01 % (0.1 mg/gram) vaginal cream Apply a pea size amount to the vagina nightly for two weeks then 3 weeks for 1 year sertraline (ZOLOFT) 50 mg tablet Take 2 tablets by mouth daily at bedtime. ibuprofen (MOTRIN) 600 mg tablet Take 1 tablet by mouth every 8 hours as needed for pain or fever (specify temp.). dicyclomine (BENTYL) 20 mg tablet Take 20 mg by mouth two times a day. meclizine (ANTIVERT) 12.5 mg tab Take 1 tablet by mouth two times a day as needed (dizziness). esomeprazole (NEXIUM) 40 mg capsule Take 40 mg by mouth daily at 6 am. levothyroxine (SYNTHROID) 25 mcg tablet Take 25 mcg by mouth once daily. traMADol (ULTRAM) 50 mg tablet Take 50 mg by mouth every 8 hours as needed for pain. SUMAtriptan (IMITREX) 100 mg tablet Take 1 tablet by mouth as needed. at onset of headache.May repeat after 2 hours. LORazepam (ATIVAN) 1 mg tablet Take 1 tablet by mouth every 8 hours. promethazine (PHENERGAN) 25 mg tablet Take 1 tablet by mouth every 4 hours as needed for Nausea/Vomiting. folic acid 1 mg tablet Take 1 mg by mouth once daily. gabapentin (NEURONTIN) 600 mg tablet Take 600 mg by mouth three times a day. meloxicam (MOBIC) 7.5 mg tablet Take 7.5 mg by mouth once daily. cephALEXin (KEFLEX) 250 mg capsule Take 1 capsule by mouth once daily. (Patient not taking: Reported on 10/25/2024) sucralfate (CARAFATE) 1 gram tablet Take 1 g by mouth daily at bedtime. denosumab (PROLIA) 60 mg/mL 60 mg by Injection - FOR ORTHO USE ONLY route once every 6 months. No current facility-administered medications for this visit. FAMILY HISTORY Problem Relation Age of Onset Cancer Mother Lung at 72 y/o Psychiatry Mother nervous breakdown, had shock therapy Cancer Father Lung at 76 y/o Psychiatry Father had nervous breakdown, had shock therapy other (no colon cancer) Father other (no breast cancer) Father other (no diabetes) Father other (no cad) Father Psychiatry Brother Breast Cancer Daughter dx age 37 Social History Tobacco Use Smoking status: Never Smokeless tobacco: Never Vaping Use Vaping status: Never Used Substance Use Topics Alcohol use: Yes Comment: rare 1x/year Drug use: No OBJECTIVE PHYSICAL EXAM: There were no vitals taken for this visit. General: Well developed, well-nourished, in no distress HEENT: Normocephalic, atraumatic. Extraocular movements intact. Sclera are nonicteric. Heart: Regular rate and rhythm, no murmur Lungs: Clear to auscultation, without wheezes Abdomen: Soft, small fat-containing umbilical hernia measuring approximately 1 cm, tender with palpation Rectal: Not evaluated Extremities: No edema Neurologic: Alert, oriented, and appropriate. DATA: Diagnostic tests reviewed for today's visit: CT reviewed with patient and : IMPRESSION: 1. Gas in urinary bladder may be related to recent instrumentation or infection. 2. Mildly dilated pancreatic duct, slightly increased in size from prior. MRI/MRCP can be performed for further evaluation if clinically indicated. Right hip US: IMPRESSION: No inguinal or femoral hernia identified. Christy Perez MD documented in this encounter [facility] 10-20-2024 Telephone encounter Note Patient's grandaughter Haydee called in and left asking for a callback regarding her grandmothers pain and need for sooner appt. Reviewed chart, instructed Haydee that Dr. Perez has already spoken to Rimma and there is an appt Thursday with Dr. Perez. Haydee is asking about POC if there is no EGD, encouraged Haydee or other family to attend appt with patient Thursday so they are all on the same page. She states work schedules limit their availability to attend appts with patient but she will likely call back in if they have further questions. [facility] 10-20-2024 Miscellaneous Notes Patient's grandaughter Haydee called in and left asking for a callback regarding her grandmothers pain and need for sooner appt. Reviewed chart, instructed Haydee that Dr. Perez has already spoken to Rimma and there is an appt Thursday with Dr. Perez. Haydee is asking about POC if there is no EGD, encouraged Haydee or other family to attend appt with patient Thursday so they are all on the same page. She states work schedules limit their availability to attend appts with patient but she will likely call back in if they have further questions. documented in this encounter [facility] 10-19-2024 Telephone encounter Note Attempted to call patient, phone goes directly to , left message for patient to call back. [facility] 10-19-2024 Miscellaneous Notes Attempted to call patient, phone goes directly to , left message for patient to call back. Spoke with patient, scheduled EUS , 11/03/2024 at [facility] [place]. Ruth Hartley Adm Asst II Please refer to Dr. Perez's telephone encounter dated 09/08/2024. Pt needs to be scheduled for EUS w/ FNA. Spoke with pt. She is aware procedure needs to be rescheduled to [place] as order reflects and Ruth will call her to do so. No weight loss. No known family Hx pancreatic CA. Does not smoke or drink. She is currently having epigastric pain 01/29. She has nausea and takes Zofran which helps a l Denies fever or chills. She states she called Dr. Perez's office and is waiting for a call back but she is contemplating going to the ER. I advised her if she decides to go to ER to have someone take her to [place] if she is able to do so. She verbalized understanding. Ruth, please call pt to rescheduled EUS. Thank you, ASIM Mujica Khaled, MD 09/15/24 10:[address] scan of the abdomen pelvis 08/25/2024: Pneumobilia. Stable dilated common bile duct. Pancreas did not show any mass. Dilated pancreatic duct measuring 6 mm previously [address] scan images. Schedule the patient for linear EUS with possible FNA in 1 to 2 months. Ask the patient about any biliary or pancreatic symptoms. Weight loss? Family history of pancreatic cancer? Smoking drinking. She had ERCP 10/04/[address] Ojeda which does explain pneumobilia. Explain the procedure to the patient details including potential complications: Bleeding Pancreatitis Infection Ismael Mcconnell MD Roxana, Patient scheduled for EGD w/Dr. Mcconnell on 11/15/2024, should this be EUS. Please review and advise. Thank you. Ruth Hartley Adm Asst II documented in this encounter [facility] 10-19-2024 Telephone encounter Note Spoke with patient, scheduled EUS , 11/03/2024 at [facility] [place]. Ruth Hartley Adm Asst II [facility] 10-18-2024 Telephone encounter Note Please refer to Dr. Perez's telephone encounter dated 09/08/2024. Pt needs to be scheduled for EUS w/ FNA. Spoke with pt. She is aware procedure needs to be rescheduled to [place] as order reflects and Ruth will call her to do so. No weight loss. No known family Hx pancreatic CA. Does not smoke or drink. She is currently having epigastric pain 01/29. She has nausea and takes Zofran which helps a l Denies fever or chills. She states she called Dr. Perez's office and is waiting for a call back but she is contemplating going to the ER. I advised her if she decides to go to ER to have someone take her to [place] if she is able to do so. She verbalized understanding. Ruth, please call pt to rescheduled EUS. Thank you, ASIM Mujica Khaled, MD 09/15/24 10:[address] scan of the abdomen pelvis 08/25/2024: Pneumobilia. Stable dilated common bile duct. Pancreas did not show any mass. Dilated pancreatic duct measuring 6 mm previously [address] scan images. Schedule the patient for linear EUS with possible FNA in 1 to 2 months. Ask the patient about any biliary or pancreatic symptoms. Weight loss? Family history of pancreatic cancer? Smoking drinking. She had ERCP 10/04/[address] Ojeda which does explain pneumobilia. Explain the procedure to the patient details including potential complications: Bleeding Pancreatitis Infection Ismael Mcconnell MD [facility] Work Phone: 10-18-2024 Telephone encounter Note Roxana, Patient scheduled for EGD w/Dr. Mcconnell on 11/15/2024, should this be EUS. Please review and advise. Thank you. Ruth Hartley Adm Asst II [facility] 10-18-2024 Telephone encounter Note Patient called in reports her abd pain is very severe, difficult to stand up, pain is where previous hernias were. Has not completed testing that was ordered by Dr. Perez at [facility] on 09/29. Would like call back. Attempted call back, straight to voicemail, left message instructing patient to call back. [facility] 10-18-2024 Miscellaneous Notes Patient called in reports her abd pain is very severe, difficult to stand up, pain is where previous hernias were. Has not completed testing that was ordered by Dr. Perez at [facility] on 09/29. Would like call back. Attempted call back, straight to voicemail, left message instructing patient to call back. documented in this encounter [facility] 10-05-2024 Telephone encounter Note Phone encounter: LVM to see how patient was doing after botox procedure. Will send [facility] message. Last visit: Office visit with provider Haydee Webb APRN CNP on date 08/24/2024: The patient was consented for the procedure and all of her questions were answered. The patient was placed in dorsal lithotomy position and prepped and draped in sterile fashion. 100 units of botox was injected in .5 cc aliquots divided 10 cc of normal saline used to reconstitute the botox into the Detrusor muscle while using a flexible cystoscope and an Injetak needle. All 20 sites were injected just superior to the trigone. A 1 cc flush with preservative-free normal saline was injected to complete the procedure. The patient tolerated the procedure well. I personally performed the entire procedure. Haydee Webb APRN.CLERK OF SCALES Future appointments: Future Appointments Date Time Provider Department Center 11/15/2024 2:30 PM Ismael Mcconnell MD [facility] 03/01/2025 1:00 PM Haydee Webb APRN.SHAHZAD Carrillo RN October 05, 2024 8:37 AM [facility] 10-05-2024 Miscellaneous Notes Phone encounter: M to see how patient was doing after botox procedure. Will send [facility] message. Last visit: Office visit with provider Haydee Webb APRN CNP on date 08/24/2024: The patient was consented for the procedure and all of her questions were answered. The patient was placed in dorsal lithotomy position and prepped and draped in sterile fashion. 100 units of botox was injected in .5 cc aliquots divided 10 cc of normal saline used to reconstitute the botox into the Detrusor muscle while using a flexible cystoscope and an Injetak needle. All 20 sites were injected just superior to the trigone. A 1 cc flush with preservative-free normal saline was injected to complete the procedure. The patient tolerated the procedure well. I personally performed the entire procedure. Haydee Webb APRN.SHAHZAD Future appointments: Future Appointments Date Time Provider Department Center 11/15/2024 2:30 PM Ismael Mcconnell MD [facility] 03/01/2025 1:00 PM Haydee Webb APRN.SHAHZAD Carrillo RN October 05, 2024 8:37 AM documented in this encounter [facility] 09-29-2024 Note HNO ID: [id number] Author: CHRISTY PEREZ MD Service: ? Author Type: Physician Type: Progress Notes Filed: 09/29/2024 11:03 Note Text: PROGRESS NOTES PATIENT NAME: Tevin Villagomez Assessment ASSESSMENT/PLAN: (R10.30) Lower abdominal pain (primary encounter diagnosis) Rimma presents in follow-up of her lower abdominal pain. On workup she was found to have a dilated pancreatic duct on CT scan. She was found to have mild elevation of her alkaline phosphatase. She is status post laparoscopic cholecystectomy 15 years ago. I did review the CT scan with the radiologist. No masses identified. I do not feel MRCP would be of benefit. She is scheduled to have an endoscopic ultrasound with Dr. Mcconnell in October. She also had a right groin ultrasound which does not demonstrate an inguinal or femoral hernia. CT scan also negative for hernia. At this time her symptoms are tolerable. If her symptoms worsen, we discussed proceeding with diagnostic laparoscopy to evaluate for abdominal wall adhesions. She is comfortable with this plan. She will call if her symptoms worsen. No orders found for this visit on 09/29/24. SUBJECTIVE CHIEF COMPLAINT: Patient presents with: Follow Up: follow up 09/08 Bloodwork per 08/25 CT ABD/PEL INTERVAL HISTORY OF PRESENT ILLNESS: Rimma is a 69-year-old female who presents in follow-up of her recent CT scan as well as right hip ultrasound. She continues to have lower abdominal pain that is almost always present. She rates this as a 6-7 out of 10. It is worse with activities or with sitting. The pain will occur daily and last throughout the day but not all day. Sometimes the pain can wake her in the morning. Wearing an abdominal binder does help. She reports having irregular bowel movements but the bowel movements do not seem to irritate the pain. 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 Ojeda Gout Hiatal hernia Leiomyoma 04/22/2011 ESOPHAGUS, excised 04/22/2011 Levoscoliosis of thoracic spine Migraine Neck pain cervicle fusion 03/05 Open wound with complication 08/22/2024 Osteoarthritis ? RA Dr Lindsey mtx and [place] Osteoporosis Other specified abdominal hernia without obstruction or gangrene S/P Botox injection 07/2024 botox injection in bladder Vaginal vault prolapse after hysterectomy PAST SURGICAL HISTORY Procedure Laterality Date ARTHROSCOPY KNEE DIAGNOSTIC W/WO SYNOVIAL BX SPX Right 2016 meniscus repair BLADDER SURGERY HX BREAST AUGMENTATION WITH IMPLANT 1991 Breast augmentation BUNIONECTOMY, LAPIDUS-TYPE Bilat. COMPLEX CYSTOMETROGRAM VOIDING PRESSURE STUDIES 08/08/2024 CYSTOURETHROSCOPY 08/08/2024 CYSTOURETHROSCOPY INJ CHEMODENERVATION BLADDER 08/24/2024 EGD 02/2016 Dr. Ojeda EGD - BALLOON DILATION, GUIDE 01/2022 ESOPHAGOGASTRODUODENOSCOPY TRANSORAL DIAGNOSTIC 11/[address] Ojeda EXT HYSTERECTOMY,W/PARTIAL VAGINECTO benign causes I AND D ABSCESS, COMPLICATED N/A 06/28/2022 abdominal wound abscess KIDNEY STONE SURGERY HX Ureteral stents KNEE SURGERY HX Right PALOMO W/O FACETEC FORAMOT/DSC 06/23 VRT SGM CRV 02/2014 cervicle fusion LAPAROSCOPY SURG CHOLECYSTECTOMY 04/2011 Cholecystectomy, lap MAMMOTOME BIOPSY RIGHT 2013 NECK SURGERY HX PAST SURGICAL HISTORY OF 2015 MOHS for basal cell on her back PAST SURGICAL HISTORY OF 03/2016 R TKA PAST SURGICAL HISTORY OF 06/28/2022 Incision and drainage of abdominal wound infection/abscess. Dr. Glynn REPAIR INCISIONAL HERNIA,REDUCIBLE 06/06/[address] Perez RPR PARAESOPH HIATAL HERNIA W/LAPT W/O MESH 04/22/2011 Laparotomy, Excision of esophageal leiomyoma and repair of esophageal wall, Esophagogastroscopy, Aditi fundoplication for Short esophagus, Type I hiatal hernia and Esophageal leiomyoma TONSILLECTOMY PRIMARY/SECONDARY Tonsillectomy ALLERGIES: Patient has no known allergies. MEDICATIONS: Current Outpatient Medications Medication Sig atorvastatin (LIPITOR) 10 mg tablet Take 1 tablet by mouth every afternoon. buPROPion SR (WELLBUTRIN SR) 100 mg 12 hr tablet Take 100 mg by mouth two times a day. folic acid 1 mg tablet Take 1 mg by mouth once daily. gabapentin (NEURONTIN) 600 mg tablet Take 600 mg by mouth three times a day. lansoprazole (PREVACID) 30 mg capsule Take 30 mg by mouth once daily. meloxicam (MOBIC) 7.5 mg tablet Take 7.5 mg by mouth once daily. mirtazapine (REMERON) 15 mg tablet Take 15 mg by mouth daily at bedtime. pregabalin (LYRICA) 50 mg capsule Take 50 mg by mouth two times a day. zolpidem (AMBIEN) 5 mg tablet Take 5 mg by mouth at bedtime as needed. mirabegron (MYRBETRIQ) 25 mg Tb24 T (more content not included)... [facility] 09-28-2024 Telephone encounter Note Attempted to call with US results - no answer. She is scheduled to see me tomorrow. [facility] 09-28-2024 Miscellaneous Notes Attempted to call with US results - no answer. She is scheduled to see me tomorrow. documented in this encounter [facility] 09-22-2024 Telephone encounter Note Patient called in, she would like to know if her appt with Dr. Perez on 09/29 is just routine f/u or if she is having a procedure that day. Returned call, no answer, left VM that appt on 09/29 is routine and there will not be a procedure on that day. Provided callback number if she has further questions [facility] 09-22-2024 Miscellaneous Notes Patient called in, she would like to know if her appt with Dr. Perez on 09/29 is just routine f/u or if she is having a procedure that day. Returned call, no answer, left VM that appt on 09/29 is routine and there will not be a procedure on that day. Provided callback number if she has further questions documented in this encounter [facility] 09-15-[address] scan of the abdomen pelvis 08/25/2024: Pneumobilia. Stable dilated common bile duct. Pancreas did not show any mass. Dilated pancreatic duct measuring 6 mm previously [address] scan images. Schedule the patient for linear EUS with possible FNA in 1 to 2 months. Ask the patient about any biliary or pancreatic symptoms. Weight loss? Family history of pancreatic cancer? Smoking drinking. She had ERCP 10/04/[address] Ojeda which does explain pneumobilia. Explain the procedure to the patient details including potential complications: Bleeding Pancreatitis Infection Ismael Mcconnell MD [facility] Work Phone: 09-15-[address] scan of the abdomen pelvis 08/25/2024: Pneumobilia. Stable dilated common bile duct. Pancreas did not show any mass. Dilated pancreatic duct measuring 6 mm previously [address] scan images. Schedule the patient for linear EUS with possible FNA in 1 to 2 months. Ask the patient about any biliary or pancreatic symptoms. Weight loss? Family history of pancreatic cancer? Smoking drinking. She had ERCP 10/04/[address] Ojeda which does explain pneumobilia. Explain the procedure to the patient details including potential complications: Bleeding Pancreatitis Infection Ismael Mcconnell MD I reviewed the CT with Radiology - there is dilated pancreatic duct of unknown etiology. He does not feel MRCP will add much. Recommend EUS. Discussed with Rimma. Will arrange for the procedure to be done with Dr. Mcconnell at [place]. documented in this encounter [facility] 09-12-2024 Telephone encounter Note Patient has been scheduled. Patient wanted to see Dr. Perez after her appt on 09/27/2024 after her ultrasound. Krys Tong [facility] 09-12-2024 Miscellaneous Notes Patient has been scheduled. Patient wanted to see Dr. Perez after her appt on 09/27/2024 after her ultrasound. Krys Tong Called with CT results - no hernia. There is PD dilatation. Will obtain labs and have her see me in 2 weeks. documented in this encounter [facility] 09-09-2024 Telephone encounter Note PT scheduled for MSK US on 09/27/24 at 2:25 PM at Main [facility] 09-09-2024 Miscellaneous Notes PT scheduled for MSK US on 09/27/24 at 2:25 PM at Main Called patient on September 09, 2024 at 8:05 AM to schedule their MSK US exam. No answer, left VM, 1st attempt. Visit Type: ANY MSK Visit Length: 45, 50 OR 60 MINUTES Order Name/Protocol: US HIP RT; MEDIAL-EVAL FOR SOURCE OF RT GROIN PAIN Preferred Provider: N/A Comment: Please ask if the patient has ever had any prior surgery to their RT groin. If so, upgrade the visit type to an MSK1 and notate the surgical hx in the Appointment Note. Location: Depending on the surgical hx, this patient can have this exam performed at any of our four locations. Slot held: N/A documented in this encounter [facility] 09-09-2024 Telephone encounter Note Called patient on September 09, 2024 at 8:05 AM to schedule their MSK US exam. No answer, left VM, 1st attempt. [facility] 09-08-2024 Telephone encounter Note I reviewed the CT with Radiology - there is dilated pancreatic duct of unknown etiology. He does not feel MRCP will add much. Recommend EUS. Discussed with Rimma. Will arrange for the procedure to be done with Dr. Mcconnell at [place]. [facility] 09-08-2024 Telephone encounter Note Visit Type: ANY MSK Visit Length: 45, 50 OR 60 MINUTES Order Name/Protocol: US HIP RT; MEDIAL-EVAL FOR SOURCE OF RT GROIN PAIN Preferred Provider: N/A Comment: Please ask if the patient has ever had any prior surgery to their RT groin. If so, upgrade the visit type to an MSK1 and notate the surgical hx in the Appointment Note. Location: Depending on the surgical hx, this patient can have this exam performed at any of our four locations. Slot held: N/A [facility] 09-06-2024 Telephone encounter Note Called with CT results - no hernia. There is PD dilatation. Will obtain labs and have her see me in 2 weeks. [facility] 09-02-2024 Telephone encounter Note Patient called and LMV on Nurse Triage, asking for results from CT. [facility] 09-02-2024 Miscellaneous Notes Patient called and LMV on Nurse Triage, asking for results from CT. documented in this encounter [facility] 08-25-2024 History of Present illness Narrative Radiology Service Progress Note DATE OF SERVICE: August 25, 2024 TIME: 10:23 AM PATIENT IDENTITY VERIFICATION COMPLETED USING TWO (2) STANDARD IDENTIFIERS: Name and Date of confirmed by patient verbally. FALL SCREENING: Has the patient had 2 falls in the last year or 1 fall with injury or currently using an Ambulatory Assistive Device (Walker, Cane, Wheelchair, Crutches, etc.)? No PATIENT GENDER DATA: Assigned female at . status: : No status: NO. PATIENT RELEVANT IMPLANT DATA REVIEWED: Not Applicable PATIENT PRESENTS WITH AN IMPLANTABLE OR ATTACHED CARPENTRY SPECIALIST: No ALLERGIES: Reviewed and unchanged CONTRAST ALLERGY: NO. EXAM: CT -CONTRAST INDUCED NEPHROPATHY RISK FACTORS: Patient age > 60 years CREATININE: Creatinine Date Value Ref Range Status 08/24/2024 0.82 0.58 - 0.96 mg/dL Final 03/23/2024 0.91 0.58 - 0.96 mg/dL Final 02/09/2024 0.87 0.58 - 0.96 mg/dL Final Estimated Glomerular Filtration Rate Date Value Ref Range Status 08/24/2024 78 >=60 mL/min/1.73m Final Comment: Estimated Glomerular Filtration Rate (eGFR) is calculated using the 2020 CKD-EPI creatinine equation. This equation utilizes serum creatinine, sex, and age as parameters. The creatinine assay has traceable calibration to isotope dilution-mass spectrometry. Refer to KDIGO guidelines for clinical interpretation. In patients with unstable renal function, e.g. those with acute kidney injury, the eGFR may not accurately reflect actual GFR. eGFR- Date Value Ref Range Status 08/10/2021 >60 Final P.O.C.T. RESULTS: N/A August 25, 2024 TREATMENT: N/A PERIPHERAL IV DATA: Ambulatory: A peripheral IV was started in the Left upper extremity antecubital site with a Angio cath: 22 gauge. RADIOLOGY DEPARTMENT: CT; Exam(s) Completed: Abdomen/Pelvis SIGNATURE: COLUMBA Vasquez PATIENT NAME: Tevin Villagomez DATE: August 25, 2024 TIME: 10:23 AM documented in this encounter [facility] 08-25-2024 Note HNO ID: [id number] Author: MIGUEL ATKINSON CT Service: Radiology Author Type: Technologist Type: Progress Notes Filed: 08/25/2024 10:23 Note Text: Radiology Service Progress Note DATE OF SERVICE: August 25, 2024 TIME: 10:23 AM PATIENT IDENTITY VERIFICATION COMPLETED USING TWO (2) STANDARD IDENTIFIERS: Name and Date of confirmed by patient verbally. FALL SCREENING: Has the patient had 2 falls in the last year or 1 fall with injury or currently using an Ambulatory Assistive Device (Walker, Cane, Wheelchair, Crutches, etc.)? No PATIENT GENDER DATA: Assigned female at . status: : No status: NO. PATIENT RELEVANT IMPLANT DATA REVIEWED: Not Applicable PATIENT PRESENTS WITH AN IMPLANTABLE OR ATTACHED CARPENTRY SPECIALIST: No ALLERGIES: Reviewed and unchanged CONTRAST ALLERGY: NO. EXAM: CT -CONTRAST INDUCED NEPHROPATHY RISK FACTORS: Patient age > 60 years CREATININE: Creatinine Date Value Ref Range Status 08/24/2024 0.82 0.58 - 0.96 mg/dL Final 03/23/2024 0.91 0.58 - 0.96 mg/dL Final 02/09/2024 0.87 0.58 - 0.96 mg/dL Final Estimated Glomerular Filtration Rate Date Value Ref Range Status 08/24/2024 78 >=60 mL/min/1.73m? Final Comment: Estimated Glomerular Filtration Rate (eGFR) is calculated using the 2020 CKD-EPI creatinine equation. This equation utilizes serum creatinine, sex, and age as parameters. The creatinine assay has traceable calibration to isotope dilution-mass spectrometry. Refer to KDIGO guidelines for clinical interpretation. In patients with unstable renal function, e.g. those with acute kidney injury, the eGFR may not accurately reflect actual GFR. eGFR- Date Value Ref Range Status 08/10/2021 >60 Final P.O.C.T. RESULTS: N/A August 25, 2024 TREATMENT: N/A PERIPHERAL IV DATA: Ambulatory: A peripheral IV was started in the Left upper extremity antecubital site with a Angio cath: 22 gauge. RADIOLOGY DEPARTMENT: CT; Exam(s) Completed: Abdomen/Pelvis SIGNATURE: COLUMBA Vasquez PATIENT NAME: Tevin Villagomez DATE: August 25, 2024 TIME: 10:23 AM [facility] 08-24-2024 Telephone encounter Note Botox 100 units 9/10 at with Haydee Webb APRN.CLERK OF SCALES - 2nd injection Previous injections: 08/24/24 Botox 100 units Q90 days approved thru 08/11/25. Pt will need rx for Bactrim - per Dr. Knowles. MARIELA 08/24/24: Procedure to be Performed: Intravesical Botox Injection Diagnosis: urge urinary incontinence Xiomy Valenzuela RN August 24, 2024 3:35 PM [facility] 08-24-2024 Miscellaneous Notes Botox 100 units 9/10 at [facility] with Haydee Webb APRN.CLERK OF SCALES - 2nd injection Previous injections: 08/24/24 Botox 100 units Q90 days approved thru 08/11/25. Pt will need rx for Bactrim - per Dr. Knowles. MARIELA 08/24/24: Procedure to be Performed: Intravesical Botox Injection Diagnosis: urge urinary incontinence Xiomy Valenzuela RN August 24, 2024 3:35 PM documented in this encounter [facility] 08-24-2024 Note HNO ID: [id number] Author: HAYDEE WEBB APRN.[employer] Service: ? Author Type: Nurse Practitioner Type: Procedures Filed: 08/24/2024 15:20 Note Text: Intravesical Botox Injection Procedure Note UNIVERSAL PROTOCOL / SAFETY CHECKLIST Procedure to be Performed: Intravesical Botox Injection Diagnosis: urge urinary incontinence Sign In: A Moment of CARE was completed. Personnel directly involved with the procedure wore the appropriate PPE (Personal Protective Equipment). Patient/Surrogate Stated/Verified: PATIENT VERIFIED(optional for EMERGENT procedures): Patient name, Date of , Relevant allergies, and The intended procedure Time Out Communication: Intended patient and procedure match the source documents. Consent documented and matches the intended procedure. Sign Out: SIGN OUT (optional for EMERGENT procedures): No specimen collected. The patient was consented for the procedure and all of her questions were answered. The patient was placed in dorsal lithotomy position and prepped and draped in sterile fashion. 100 units of botox was injected in .5 cc aliquots divided 10 cc of normal saline used to reconstitute the botox into the Detrusor muscle while using a flexible cystoscope and an Injetak needle. All 20 sites were injected just superior to the trigone. A 1 cc flush with preservative-free normal saline was injected to complete the procedure. The patient tolerated the procedure well. I personally performed the entire procedure. Haydee Webb APRN.CLERK OF SCALES [facility] 08-24-2024 Procedure note Procedure(s): CYSTOURETHROSCOPY INJ CHEMODENERVATION BLADDER Pre-Procedure Diagnose(s): OAB (overactive bladder) Post-Procedure Diagnose(s): OAB (overactive bladder) Intravesical Botox Injection Procedure Note UNIVERSAL PROTOCOL / SAFETY CHECKLIST Procedure to be Performed: Intravesical Botox Injection Diagnosis: urge urinary incontinence Sign In: A Moment of CARE was completed. Personnel directly involved with the procedure wore the appropriate PPE (Personal Protective Equipment). Patient/Surrogate Stated/Verified: PATIENT VERIFIED(optional for EMERGENT procedures): Patient name, Date of , Relevant allergies, and The intended procedure Time Out Communication: Intended patient and procedure match the source documents. Consent documented and matches the intended procedure. Sign Out: SIGN OUT (optional for EMERGENT procedures): No specimen collected. The patient was consented for the procedure and all of her questions were answered. The patient was placed in dorsal lithotomy position and prepped and draped in sterile fashion. 100 units of botox was injected in .5 cc aliquots divided 10 cc of normal saline used to reconstitute the botox into the Detrusor muscle while using a flexible cystoscope and an Injetak needle. All 20 sites were injected just superior to the trigone. A 1 cc flush with preservative-free normal saline was injected to complete the procedure. The patient tolerated the procedure well. I personally performed the entire procedure. Haydee Webb APRN.CLERK OF SCALES [facility] 08-24-2024 Instructions Haydee Webb APRN.CNP - 08/24/2024 3:20 PM EST BOTOX TREATMENT INFORMATION Many people think overactive bladder (OAB) is just part of getting older. However, OAB is a chronic condition that requires ongoing treatment. HOW DOES BOTOX WORK? In your body, certain chemicals travel from nerve cells to muscle cells to make your bladder contract so that you can urinate. For people who have OAB, these muscles contract uncontrollably, creating leakage, the sudden strong need to go, and going too often. BOTOX is placed directly in the bladder muscle, helping block the nerve signals that trigger OAB. BEFORE THE PROCEDURE Before treating you with BOTOX , we must first receive your insurance company's approval. We will submit information to your insurance company for prior authorization to proceed with treatment, which can take 2 to 4 weeks, depending on your health plan. In some cases, we will need to obtain BOTOX through a specialty pharmacy. If this is required, the specialty pharmacy will contact you for permission to give the medication to our office and collect any needed copayment. We may have to move your appointment if approval is not received in time, but this is not typically an issue. We will also notify you if your insurance denies the procedure and discuss the next steps. You are responsible for any cost not covered by insurance. All balances must be paid in full before additional treatments will be provided. WHAT SHOULD I EXPECT? Dr. Knowles completes the procedure with support from a medical office technology instructor. The actual procedure takes about 3-5 minutes. The procedure may be uncomfortable, but any discomfort subsides after injections are received. You can drive and return to your regular activity, including work, immediately. The majority of patients receiving BOTOX have at least a 50% reduction of daily leakage episodes. Many of these patients reduced their leakage episodes by 75%. Approximately 1 in 4 of these patients reported leakage episodes stopped completely. After your first treatment, you will receive a phone call from the nurse to see how the treatment is working for you. If you do not have the results you were hoping for, we can often increase the dose. BOTOX works for up to 6 months, which is why re-treatment is about two times a year. You may start to notice results at two weeks. If your OAB symptoms return before six months, contact your doctor so you may be re-treated sooner. A minimum of 12 weeks is needed between treatments. ARE THERE ANY SIDE EFFECTS? The most common side effects after a BOTOX treatment are: Urinary tract infection (18% vs. 6% with placebo) Painful or difficult urination (9% vs. 7% placebo) Temporary inability to empty your bladder, which may require the use of a self-catheter (6% vs. 0% placebo) (VERY UNCOMMON!) However, most patients do not experience the above side effects and find tremendous relief from this treatment. IMPORTANT REBATE INFO!!! To enroll in the Botox Savings Program: [place] [email or web address] [phone]-BOTOX documented in this encounter [facility] 08-24-2024 Procedure note Procedure(s): CYSTOURETHROSCOPY INJ CHEMODENERVATION BLADDER Pre-Procedure Diagnose(s): OAB (overactive bladder) Post-Procedure Diagnose(s): OAB (overactive bladder) Intravesical Botox Injection Procedure Note UNIVERSAL PROTOCOL / SAFETY CHECKLIST Procedure to be Performed: Intravesical Botox Injection Diagnosis: urge urinary incontinence Sign In: A Moment of CARE was completed. Personnel directly involved with the procedure wore the appropriate PPE (Personal Protective Equipment). Patient/Surrogate Stated/Verified: PATIENT VERIFIED(optional for EMERGENT procedures): Patient name, Date of , Relevant allergies, and The intended procedure Time Out Communication: Intended patient and procedure match the source documents. Consent documented and matches the intended procedure. Sign Out: SIGN OUT (optional for EMERGENT procedures): No specimen collected. The patient was consented for the procedure and all of her questions were answered. The patient was placed in dorsal lithotomy position and prepped and draped in sterile fashion. 100 units of botox was injected in .5 cc aliquots divided 10 cc of normal saline used to reconstitute the botox into the Detrusor muscle while using a flexible cystoscope and an Injetak needle. All 20 sites were injected just superior to the trigone. A 1 cc flush with preservative-free normal saline was injected to complete the procedure. The patient tolerated the procedure well. I personally performed the entire procedure. Haydee Webb APRN.CLERK OF SCALES documented in this encounter [facility] 08-23-2024 Note HNO ID: [id number] Author: CHRISTY PEREZ MD Service: ? Author Type: Physician Type: Progress Notes Filed: 08/23/2024 08:48 Note Text: GENERAL SURGERY PROGRESS NOTES PATIENT NAME: Tevin Villagomez Assessment ASSESSMENT/PLAN: (R10.31) RLQ abdominal pain (primary encounter diagnosis) (Z01.812) Encounter for preprocedural laboratory examination (R11.0) Nausea Tevin presents with right lower quadrant abdominal pain and nausea. On exam her pain is mainly in the right lower quadrant, possible groin. With her body habitus it is difficult to palpate for a hernia. I would like to obtain a CT scan to further assess. I will call her with these results. I have encouraged her to follow-up with Dr. Ojeda for evaluation of the nausea. She is comfortable with this plan. Office Visit on 08/23/24 CT ABD/PEL W IVCON CREATININE BLD atorvastatin (LIPITOR) 10 mg tablet buPROPion SR (WELLBUTRIN SR) 100 mg 12 hr tablet folic acid 1 mg tablet gabapentin (NEURONTIN) 600 mg tablet lansoprazole (PREVACID) 30 mg capsule meloxicam (MOBIC) 7.5 mg tablet mirtazapine (REMERON) 15 mg tablet pregabalin (LYRICA) 50 mg capsule zolpidem (AMBIEN) 5 mg tablet iv contrast (will be provided with radiology test) enteric contrast (will be provided with radiology test) SUBJECTIVE CHIEF COMPLAINT: Patient presents with: Stabbing pain in incision area: From hernia Nausea INTERVAL HISTORY OF PRESENT ILLNESS: Tevin is a 69-year-old female status post laparoscopic incisional hernia repair in May 2022. This was complicated by a wound infection requiring VAC closure. 3 weeks ago she was working and started feeling discomfort in her right lower quadrant. She will feel pain across her lower abdomen. She has been experiencing nausea. She denies vomiting, diarrhea, or constipation. She does state that she had nausea when she had her last hernia. She does see Dr. Ojeda. She presents today for surgical evaluation. 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 Ojeda Gout Hiatal hernia Leiomyoma 04/22/2011 ESOPHAGUS, excised 04/22/2011 Levoscoliosis of thoracic spine Migraine Neck pain cervicle fusion 03/05 Open wound with complication 08/22/2024 Osteoarthritis ? RA Dr Lindsey mtx and irving Osteoporosis Other specified abdominal hernia without obstruction or gangrene Vaginal vault prolapse after hysterectomy PAST SURGICAL HISTORY Procedure Laterality Date ARTHROSCOPY KNEE DIAGNOSTIC W/WO SYNOVIAL BX SPX Right 2015 meniscus repair BLADDER SURGERY HX BREAST AUGMENTATION WITH IMPLANT 1991 Breast augmentation BUNIONECTOMY, LAPIDUS-TYPE Bilat. COMPLEX CYSTOMETROGRAM VOIDING PRESSURE STUDIES 08/08/2024 CYSTOURETHROSCOPY 08/08/2024 EGD 02/2016 Dr. Ojeda EGD - BALLOON DILATION, GUIDE 01/2022 ESOPHAGOGASTRODUODENOSCOPY TRANSORAL DIAGNOSTIC 11/[address] Ojeda EXT HYSTERECTOMY,W/PARTIAL VAGINECTO benign causes I AND D ABSCESS, COMPLICATED N/A 06/28/2022 abdominal wound abscess KIDNEY STONE SURGERY HX Ureteral stents PALOMO W/O FACETEC FORAMOT/DSC 06/23 VRT SGM CRV 02/2014 cervicle fusion LAPAROSCOPY SURG CHOLECYSTECTOMY 04/2011 Cholecystectomy, lap MAMMOTOME BIOPSY RIGHT 2013 PAST SURGICAL HISTORY OF 2016 MOHS for basal cell on her back PAST SURGICAL HISTORY OF 03/2016 R TKA PAST SURGICAL HISTORY OF 06/28/2022 Incision and drainage of abdominal wound infection/abscess. Dr. Glynn REPAIR INCISIONAL HERNIA,REDUCIBLE 06/06/[address] Perez RPR PARAESOPH HIATAL HERNIA W/LAPT W/O MESH 04/22/2011 Laparotomy, Excision of esophageal leiomyoma and repair of esophageal wall, Esophagogastroscopy, Aditi fundoplication for Short esophagus, Type I hiatal hernia and Esophageal leiomyoma TONSILLECTOMY PRIMARY/SECONDARY Tonsillectomy ALLERGIES: Patient has no known allergies. MEDICATIONS: Current Outpatient Medications Medication Sig atorvastatin (LIPITOR) 10 mg tablet Take 1 tablet by mouth every afternoon. folic acid 1 mg tablet Take 1 mg by mouth once daily. iv contrast (will be provided with radiology test) CT ABD/PEL -Inject, intravenously, once for 1 dose.No IV access, insert saline lock prior to the beginning of sedation, infusion, injection of imaging exam. Discontinue saline lock post exam. If Pt. has a central line or IVAD, may access for administration according to line specific nursing protocol. Once exam is complete flush line and de-access according to line specific nursing protocol in the CT contrast administration guidelines link. enteric contrast (will be provided with radiology test) For CT ABD/PEL W IVCO (more content not included)... [facility] 08-23-2024 History of Present illness Narrative GENERAL SURGERY PROGRESS NOTES PATIENT NAME: Tevin Villagomez Assessment ASSESSMENT/PLAN: (R10.31) RLQ abdominal pain (primary encounter diagnosis) (Z01.812) Encounter for preprocedural laboratory examination (R11.0) Nausea Tevin presents with right lower quadrant abdominal pain and nausea. On exam her pain is mainly in the right lower quadrant, possible groin. With her body habitus it is difficult to palpate for a hernia. I would like to obtain a CT scan to further assess. I will call her with these results. I have encouraged her to follow-up with Dr. Ojeda for evaluation of the nausea. She is comfortable with this plan. Office Visit on 08/23/24 CT ABD/PEL W IVCON CREATININE BLD atorvastatin (LIPITOR) 10 mg tablet buPROPion SR (WELLBUTRIN SR) 100 mg 12 hr tablet folic acid 1 mg tablet gabapentin (NEURONTIN) 600 mg tablet lansoprazole (PREVACID) 30 mg capsule meloxicam (MOBIC) 7.5 mg tablet mirtazapine (REMERON) 15 mg tablet pregabalin (LYRICA) 50 mg capsule zolpidem (AMBIEN) 5 mg tablet iv contrast (will be provided with radiology test) enteric contrast (will be provided with radiology test) SUBJECTIVE CHIEF COMPLAINT: Patient presents with: Stabbing pain in incision area: From hernia Nausea INTERVAL HISTORY OF PRESENT ILLNESS: Tevin is a 69-year-old female status post laparoscopic incisional hernia repair in May 2022. This was complicated by a wound infection requiring VAC closure. 3 weeks ago she was working and started feeling discomfort in her right lower quadrant. She will feel pain across her lower abdomen. She has been experiencing nausea. She denies vomiting, diarrhea, or constipation. She does state that she had nausea when she had her last hernia. She does see Dr. Ojeda. She presents today for surgical evaluation. 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 Ojeda Gout Hiatal hernia Leiomyoma 04/22/2011 ESOPHAGUS, excised 04/22/2011 Levoscoliosis of thoracic spine Migraine Neck pain cervicle fusion 03/05 Open wound with complication 08/22/2024 Osteoarthritis ? RA Dr Lindsey mtx and ir[place] Osteoporosis Other specified abdominal hernia without obstruction or gangrene Vaginal vault prolapse after hysterectomy PAST SURGICAL HISTORY Procedure Laterality Date ARTHROSCOPY KNEE DIAGNOSTIC W/WO SYNOVIAL BX SPX Right 2015 meniscus repair BLADDER SURGERY HX BREAST AUGMENTATION WITH IMPLANT 1991 Breast augmentation BUNIONECTOMY, LAPIDUS-TYPE Bilat. COMPLEX CYSTOMETROGRAM VOIDING PRESSURE STUDIES 08/08/2024 CYSTOURETHROSCOPY 08/08/2024 EGD 02/2016 Dr. Ojeda EGD - BALLOON DILATION, GUIDE 01/2022 ESOPHAGOGASTRODUODENOSCOPY TRANSORAL DIAGNOSTIC 11/[address] Ojeda EXT HYSTERECTOMY,W/PARTIAL VAGINECTO benign causes I & D ABSCESS, COMPLICATED N/A 06/28/2022 abdominal wound abscess KIDNEY STONE SURGERY HX Ureteral stents PALOMO W/O FACETEC FORAMOT/DSC 06/23 VRT SGM CRV 02/2014 cervicle fusion LAPAROSCOPY SURG CHOLECYSTECTOMY 04/2011 Cholecystectomy, lap MAMMOTOME BIOPSY RIGHT 2013 PAST SURGICAL HISTORY OF 2015 MOHS for basal cell on her back PAST SURGICAL HISTORY OF 03/2016 R TKA PAST SURGICAL HISTORY OF 06/28/2022 Incision and drainage of abdominal wound infection/abscess. Dr. Glynn REPAIR INCISIONAL HERNIA,REDUCIBLE 06/06/[address] Perez RPR PARAESOPH HIATAL HERNIA W/LAPT W/O MESH 04/22/2011 Laparotomy, Excision of esophageal leiomyoma and repair of esophageal wall, Esophagogastroscopy, Aditi fundoplication for Short esophagus, Type I hiatal hernia and Esophageal leiomyoma TONSILLECTOMY PRIMARY/SECONDARY <AGE 12 A CHILD Tonsillectomy ALLERGIES: Patient has no known allergies. MEDICATIONS: Current Outpatient Medications Medication Sig atorvastatin (LIPITOR) 10 mg tablet Take 1 tablet by mouth every afternoon. folic acid 1 mg tablet Take 1 mg by mouth once daily. iv contrast (will be provided with radiology test) CT ABD/PEL -Inject, intravenously, once for 1 dose.No IV access, insert saline lock prior to the beginning of sedation, infusion, injection of imaging exam. Discontinue saline lock post exam. If Pt. has a central line or IVAD, may access for administration according to line specific nursing protocol. Once exam is complete flush line and de-access according to line specific nursing protocol in the CT contrast administration guidelines link. enteric contrast (will be provided with radiology test) For CT ABD/PEL W IVCON Routine order Administer, As Directed One Time Only, via Oral, Rectal, both Oral and Rectal, Enteric Tube, Stoma or Indwelling Catheter, Enteric Contrast as designated per enteric contrast guidelines buPROPion SR (WELLBUTRIN SR) 100 mg 12 hr tablet Take 100 mg by mouth two times a day. gabapentin (NEURONTIN) 600 mg tablet Take 600 mg by mouth three times a day. lansoprazole (PREVACID) 30 mg capsule Take 30 mg by mouth once daily. meloxicam (MOBIC) 7.5 mg tablet Take 7.5 mg by mouth once daily. mirtazapine (REMERON) 15 mg tablet Take 15 mg by mouth daily at bedtime. pregabalin (LYRICA) 50 mg capsule Take 50 mg by mouth two times a day. zolpidem (AMBIEN) 5 mg tablet Take 5 mg by mouth at bedtime as needed. mirabegron (MYRBETRIQ) 25 mg Tb24 Take 1 tablet by mouth once daily. solifenacin (VESICARE) 5 mg tablet Take 1 tablet by mouth once daily. cephALEXin (KEFLEX) 250 mg capsule Take 1 capsule by mouth once daily. estradiol (ESTRACE) 0.01 % (0.1 mg/gram) vaginal cream Apply a pea size amount to the vagina nightly for two weeks then 3 weeks for 1 year sertraline (ZOLOFT) 50 mg tablet Take 2 tablets by mouth daily at bedtime. ibuprofen (MOTRIN) 600 mg tablet Take 1 tablet by mouth every 8 hours as needed for pain or fever (specify temp.). dicyclomine (BENTYL) 20 mg tablet Take 20 mg by mouth two times a day. sucralfate (CARAFATE) 1 gram tablet Take 1 g by mouth daily at bedtime. denosumab (PROLIA) 60 mg/mL 60 mg by Injection - FOR ORTHO USE ONLY route once every 6 months. meclizine (ANTIVERT) 12.5 mg tab Take 1 tablet by mouth two times a day as needed (dizziness). esomeprazole (NEXIUM) 40 mg capsule Take 40 mg by mouth daily at 6 am. levothyroxine (SYNTHROID) 25 mcg tablet Take 25 mcg by mouth once daily. traMADol (ULTRAM) 50 mg tablet Take 50 mg by mouth every 8 hours as needed for pain. SUMAtriptan (IMITREX) 100 mg tablet Take 1 tablet by mouth as needed. at onset of headache.May repeat after 2 hours. LORazepam (ATIVAN) 1 mg tablet Take 1 tablet by mouth every 8 hours. (Patient taking differently: Take 1 mg by mouth two times a day as needed for anxiety.) promethazine (PHENERGAN) 25 mg tablet Take 1 tablet by mouth every 4 hours as needed for Nausea/Vomiting. Current Facility-Administered Medications Medication Dose Route Frequency onabotulinum toxin type A 100 Units injection (BOTOX) 100 Units INTRAMUSCULAR ONCE (AMB - Up to 30 Days) FAMILY HISTORY Problem Relation Age of Onset Cancer Mother Lung at 72 y/o Psychiatry Mother nervous breakdown, had shock therapy Cancer Father Lung at 76 y/o Psychiatry Father had nervous breakdown, had shock therapy other (no colon cancer) Father other (no breast cancer) Father other (no diabetes) Father other (no cad) Father Psychiatry Brother Breast Cancer Daughter dx age 37 Social History Tobacco Use Smoking status: Never Smokeless tobacco: Never Vaping Use Vaping status: Never Used Substance Use Topics Alcohol use: Yes Comment: rare 1x/year Drug use: No OBJECTIVE PHYSICAL EXAM: BP 94/65 Pulse 104 Temp 98.2 Resp 16 Ht 5' 1 (1.55m) Wt 163 lb 3.2 oz (74.0kg) SpO2 100% BMI 30.85 kg/(m^2). General: Well developed, well-nourished, in no distress HEENT: Normocephalic, atraumatic. Extraocular movements intact. Sclera are nonicteric. Heart: Regular rate and rhythm, no murmur Lungs: Clear to auscultation, without wheezes Abdomen: Discomfort right lower quadrant without guarding, tender over inguinal canal, questionable hernia defect. Upper abdomen incision well-healed, no evidence for recurrent hernia. Rectal: Not evaluated Extremities: No edema Neurologic: Alert, oriented, and appropriate. DATA: Diagnostic tests reviewed for today's visit: None Christy Perez MD Patient presents with: Stabbing pain in incision area: From hernia Nausea Last 3 Encounter BP Readings: Date: BP: 08/23/2024 94/65 08/08/2024 124/68 08/01/2024 130/84 LDL Cholesterol (mg/dL) Date Value 03/13/2015 155 HBA1C: No results found for: HBA1C Protein, Urine (mg/dL) Date Value 08/08/2024 Neg Diabetic Foot and Retinal Eye Exam not Overdue documented in this encounter [facility] 08-23-2024 Instructions Christy Perez MD - 08/23/2024 8:23 AM EST Call to schedule the CT scan. I will call you with the results. documented in this encounter [facility] 08-23-2024 Note HNO ID: [id number] Author: NORA BAI MA Service: ? Author Type: Hearing Dog Trainer Type: Progress Notes Filed: 08/23/2024 08:48 Note Text: Patient presents with: Stabbing pain in incision area: From hernia Nausea Last 3 Encounter BP Readings: Date: BP: 08/23/2024 94/65 08/08/2024 124/68 08/01/2024 130/84 LDL Cholesterol (mg/dL) Date Value 03/13/2015 155 HBA1C: No results found for: HBA1C Protein, Urine (mg/dL) Date Value 08/08/2024 Neg Diabetic Foot and Retinal Eye Exam not Overdue [facility] 08-09-2024 Telephone encounter Note Botox referral received for 100 units -- 1st injection. Added CPT codes to auth. Will monitor status. LV: 08/08 with [place] OAB (overactive bladder) We discussed the patient's options for her OAB which include expectant management, behavioral modification and bladder training, pelvic floor rehabilitation, anticholinergic medications, Myrbetriq (a B3 adrenergic agonist), or a combination of these treatment modalities. We also discussed the option of sacroneuromodulation (Interstim), UrgentPC, REVI or Intravesical Botox. We discussed the importance of decreasing/eliminating her caffeine intake to help improve her urgency and frequency. The patient was counseled on the importance of kegel exercises for urge control. She was given a handout on OAB, bladder training and pelvic floor exercises. We discussed the risks of Botox including recurrent bladder infections, voiding dysfunction and the need for clean intermittent self-catheterization. There is also a small risk of bladder or bowel injury. Patient has met S medical necessity criteria because she has had symptoms for several years, and it has impacted her quality of life. She has not responded to medication (including oxybutynin), conservative treatment (kegel, diet modification, pelvic muscle exercises, fluid management, timed voids, bladder retraining), other surgical produres. For these reasons she is a good candidate for botox. We will plan to do an intravesical botox injection. She was given educational information on botox. 100 units. If Botox does not work, will consider interstim. Will schedule after Botox is approved. Gloria Yang RN August 09, 2024 5:00 PM [facility] 08-09-2024 Miscellaneous Notes Botox referral received for 100 units -- 1st injection. Added CPT codes to auth. Will monitor status. LV: 08/08 with [place] OAB (overactive bladder) We discussed the patient's options for her OAB which include expectant management, behavioral modification and bladder training, pelvic floor rehabilitation, anticholinergic medications, Myrbetriq (a B3 adrenergic agonist), or a combination of these treatment modalities. We also discussed the option of sacroneuromodulation (Interstim), UrgentPC, REVI or Intravesical Botox. We discussed the importance of decreasing/eliminating her caffeine intake to help improve her urgency and frequency. The patient was counseled on the importance of kegel exercises for urge control. She was given a handout on OAB, bladder training and pelvic floor exercises. We discussed the risks of Botox including recurrent bladder infections, voiding dysfunction and the need for clean intermittent self-catheterization. There is also a small risk of bladder or bowel injury. Patient has met [facility] medical necessity criteria because she has had symptoms for several years, and it has impacted her quality of life. She has not responded to medication (including oxybutynin), conservative treatment (kegel, diet modification, pelvic muscle exercises, fluid management, timed voids, bladder retraining), other surgical produres. For these reasons she is a good candidate for botox. We will plan to do an intravesical botox injection. She was given educational information on botox. 100 units. If Botox does not work, will consider interstim. Will schedule after Botox is approved. Gloria Yang RN August 09, 2024 5:00 PM documented in this encounter [facility] 08-08-2024 Note HNO ID: [id number] Author: SIXTO KNOWLES MD Service: ? Author Type: Physician Type: Progress Notes Filed: 08/08/2024 14:39 Note Text: Female Pelvic Medicine AND Reconstructive Surgery Follow-Up Tevin Villagomez is a 69 year old female, who presents for a follow-up of urinary incontinence, urinary urgency. History since last visit: Patient here with urge urinary incontinence that has not improved with medications. She is here for urodynamics and to discuss a plan. ALLERGIES No Known Allergies Current Outpatient Medications Medication Sig mirabegron (MYRBETRIQ) 25 mg Tb24 Take 1 tablet by mouth once daily. solifenacin (VESICARE) 5 mg tablet Take 1 tablet by mouth once daily. cephALEXin (KEFLEX) 250 mg capsule Take 1 capsule by mouth once daily. estradiol (ESTRACE) 0.01 % (0.1 mg/gram) vaginal cream Apply a pea size amount to the vagina nightly for two weeks then 3 weeks for 1 year sertraline (ZOLOFT) 50 mg tablet Take 2 tablets by mouth daily at bedtime. ibuprofen (MOTRIN) 600 mg tablet Take 1 tablet by mouth every 8 hours as needed for pain or fever (specify temp.). dicyclomine (BENTYL) 20 mg tablet Take 20 mg by mouth two times a day. sucralfate (CARAFATE) 1 gram tablet Take 1 g by mouth daily at bedtime. denosumab (PROLIA) 60 mg/mL 60 mg by Injection - FOR ORTHO USE ONLY route once every 6 months. meclizine (ANTIVERT) 12.5 mg tab Take 1 tablet by mouth two times a day as needed (dizziness). esomeprazole (NEXIUM) 40 mg capsule Take 40 mg by mouth daily at 6 am. levothyroxine (SYNTHROID) 25 mcg tablet Take 25 mcg by mouth once daily. traMADol (ULTRAM) 50 mg tablet Take 50 mg by mouth every 8 hours as needed for pain. SUMAtriptan (IMITREX) 100 mg tablet Take 1 tablet by mouth as needed. at onset of headache.May repeat after 2 hours. LORazepam (ATIVAN) 1 mg tablet Take 1 tablet by mouth every 8 hours. (Patient taking differently: Take 1 mg by mouth two times a day as needed for anxiety.) promethazine (PHENERGAN) 25 mg tablet Take 1 tablet by mouth every 4 hours as needed for Nausea/Vomiting. sulfamethoxazole-trimethoprim (BACTRIM DS) 800-160 mg per tablet Take 1 tablet by mouth two times a day for 2 doses. Take the morning and evening of your Botox procedure. acetaminophen 325 mg-caffeine 40 mg-butalbital 50 mg (FIORICET) per tablet Take 1 tablet by mouth every 6 hours as needed. (Patient not taking: Reported on 08/08/2024) Current Facility-Administered Medications Medication Dose Route Frequency onabotulinum toxin type A 100 Units injection (BOTOX) 100 Units INTRAMUSCULAR ONCE (AMB - Up to 30 Days) PAST SURGICAL HISTORY Procedure Laterality Date ARTHROSCOPY KNEE DIAGNOSTIC W/WO SYNOVIAL BX SPX Right 2015 meniscus repair BLADDER SURGERY HX BREAST AUGMENTATION WITH IMPLANT 1991 Breast augmentation BUNIONECTOMY, LAPIDUS-TYPE Bilat. EGD 02/2016 Dr. Ojeda EGD - BALLOON DILATION, GUIDE 01/2022 ESOPHAGOGASTRODUODENOSCOPY TRANSORAL DIAGNOSTIC 11/[address] Ojeda EXT HYSTERECTOMY,W/PARTIAL VAGINECTO benign causes I AND D ABSCESS, COMPLICATED N/A 06/28/2022 abdominal wound abscess KIDNEY STONE SURGERY HX Ureteral stents PALOMO W/O FACETEC FORAMOT/DSC 06/23 VRT SGM CRV 02/2014 cervicle fusion LAPAROSCOPY SURG CHOLECYSTECTOMY 04/2011 Cholecystectomy, lap MAMMOTOME BIOPSY RIGHT 2013 PAST SURGICAL HISTORY OF 2016 MOHS for basal cell on her back PAST SURGICAL HISTORY OF 03/2016 R TKA PAST SURGICAL HISTORY OF 06/28/2022 Incision and drainage of abdominal wound infection/abscess. Dr. Glynn REPAIR INCISIONAL HERNIA,REDUCIBLE 06/06/[address] Perez RPR PARAESOPH HIATAL HERNIA W/LAPT W/O MESH 04/22/2011 Laparotomy, Excision of esophageal leiomyoma and repair of esophageal wall, Esophagogastroscopy, Aditi fundoplication for Short esophagus, Type I hiatal hernia and Esophageal leiomyoma TONSILLECTOMY PRIMARY/SECONDARY Tonsillectomy PAST MEDICAL HISTORY Diagnosis Date Acquired hypothyroidism Anxiety Cystourethrocele Dysphagia Fibromyalgia GERD (gastroesophageal reflux disease) s/p surgery now controlled with zantac, Dr. Ojeda Hiatal hernia Leiomyoma 04/22/2011 ESOPHAGUS, excised 04/22/2011 Levoscoliosis of thoracic spine Migraine Neck pain cervicle fusion 03/05 Osteoarthritis ? RA Dr Lindsey mtx and irving Vaginal vault prolapse after hysterectomy FAMILY HISTORY Problem Relation Age of Onset Cancer Mother Lung at 72 y/o Psychiatry Mother nervous breakdown, had shock therapy Cancer Father Lung at 76 y/o Psychiatry Father had nervous breakdown, had shock therapy other (no colon cancer) Father other (no breast cancer) Father other (no diabetes) Father other (no cad) Father Psychiatry Brother Breast Cancer Daughter dx age 37 SOCIAL HISTORY Social History Tobacco Use Smoking status: Never Smokeless tobacco: Never Vaping (more content not included)... [facility] 08-08-2024 History of Present illness Narrative Images from the original note were not included. Female Pelvic Medicine & Reconstructive Surgery Follow-Up Tevin Villagomez is a 69 year old female, who presents for a follow-up of urinary incontinence, urinary urgency. History since last visit: Patient here with urge urinary incontinence that has not improved with medications. She is here for urodynamics and to discuss a plan. ALLERGIES No Known Allergies Current Outpatient Medications Medication Sig mirabegron (MYRBETRIQ) 25 mg Tb24 Take 1 tablet by mouth once daily. solifenacin (VESICARE) 5 mg tablet Take 1 tablet by mouth once daily. cephALEXin (KEFLEX) 250 mg capsule Take 1 capsule by mouth once daily. estradiol (ESTRACE) 0.01 % (0.1 mg/gram) vaginal cream Apply a pea size amount to the vagina nightly for two weeks then 3 weeks for 1 year sertraline (ZOLOFT) 50 mg tablet Take 2 tablets by mouth daily at bedtime. ibuprofen (MOTRIN) 600 mg tablet Take 1 tablet by mouth every 8 hours as needed for pain or fever (specify temp.). dicyclomine (BENTYL) 20 mg tablet Take 20 mg by mouth two times a day. sucralfate (CARAFATE) 1 gram tablet Take 1 g by mouth daily at bedtime. denosumab (PROLIA) 60 mg/mL 60 mg by Injection - FOR ORTHO USE ONLY route once every 6 months. meclizine (ANTIVERT) 12.5 mg tab Take 1 tablet by mouth two times a day as needed (dizziness). esomeprazole (NEXIUM) 40 mg capsule Take 40 mg by mouth daily at 6 am. levothyroxine (SYNTHROID) 25 mcg tablet Take 25 mcg by mouth once daily. traMADol (ULTRAM) 50 mg tablet Take 50 mg by mouth every 8 hours as needed for pain. SUMAtriptan (IMITREX) 100 mg tablet Take 1 tablet by mouth as needed. at onset of headache.May repeat after 2 hours. LORazepam (ATIVAN) 1 mg tablet Take 1 tablet by mouth every 8 hours. (Patient taking differently: Take 1 mg by mouth two times a day as needed for anxiety.) promethazine (PHENERGAN) 25 mg tablet Take 1 tablet by mouth every 4 hours as needed for Nausea/Vomiting. sulfamethoxazole-trimethoprim (BACTRIM DS) 800-160 mg per tablet Take 1 tablet by mouth two times a day for 2 doses. Take the morning and evening of your Botox procedure. acetaminophen 325 mg-caffeine 40 mg-butalbital 50 mg (FIORICET) per tablet Take 1 tablet by mouth every 6 hours as needed. (Patient not taking: Reported on 08/08/2024) Current Facility-Administered Medications Medication Dose Route Frequency onabotulinum toxin type A 100 Units injection (BOTOX) 100 Units INTRAMUSCULAR ONCE (AMB - Up to 30 Days) PAST SURGICAL HISTORY Procedure Laterality Date ARTHROSCOPY KNEE DIAGNOSTIC W/WO SYNOVIAL BX SPX Right 2015 meniscus repair BLADDER SURGERY HX BREAST AUGMENTATION WITH IMPLANT 1991 Breast augmentation BUNIONECTOMY, LAPIDUS-TYPE Bilat. EGD 02/2016 Dr. Ojeda EGD - BALLOON DILATION, GUIDE 01/2022 ESOPHAGOGASTRODUODENOSCOPY TRANSORAL DIAGNOSTIC 11/[address] Ojeda EXT HYSTERECTOMY,W/PARTIAL VAGINECTO benign causes I & D ABSCESS, COMPLICATED N/A 06/28/2022 abdominal wound abscess KIDNEY STONE SURGERY HX Ureteral stents PALOMO W/O FACETEC FORAMOT/DSC 06/23 VRT SGM CRV 02/2014 cervicle fusion LAPAROSCOPY SURG CHOLECYSTECTOMY 04/2011 Cholecystectomy, lap MAMMOTOME BIOPSY RIGHT 2013 PAST SURGICAL HISTORY OF 2015 MOHS for basal cell on her back PAST SURGICAL HISTORY OF 03/2016 R TKA PAST SURGICAL HISTORY OF 06/28/2022 Incision and drainage of abdominal wound infection/abscess. Dr. Glynn REPAIR INCISIONAL HERNIA,REDUCIBLE 06/06/[address] Perez RPR PARAESOPH HIATAL HERNIA W/LAPT W/O MESH 04/22/2011 Laparotomy, Excision of esophageal leiomyoma and repair of esophageal wall, Esophagogastroscopy, Aditi fundoplication for Short esophagus, Type I hiatal hernia and Esophageal leiomyoma TONSILLECTOMY PRIMARY/SECONDARY <AGE 12 A CHILD Tonsillectomy PAST MEDICAL HISTORY Diagnosis Date Acquired hypothyroidism Anxiety Cystourethrocele Dysphagia Fibromyalgia GERD (gastroesophageal reflux disease) s/p surgery now controlled with zantac, Dr. Ojeda Hiatal hernia Leiomyoma 04/22/2011 ESOPHAGUS, excised 04/22/2011 Levoscoliosis of thoracic spine Migraine Neck pain cervicle fusion 03/05 Osteoarthritis ? RA Dr César rios and [place] Vaginal vault prolapse after hysterectomy FAMILY HISTORY Problem Relation Age of Onset Cancer Mother Lung at 72 y/o Psychiatry Mother nervous breakdown, had shock therapy Cancer Father Lung at 76 y/o Psychiatry Father had nervous breakdown, had shock therapy other (no colon cancer) Father other (no breast cancer) Father other (no diabetes) Father other (no cad) Father Psychiatry Brother Breast Cancer Daughter dx age 37 SOCIAL HISTORY Social History Tobacco Use Smoking status: Never Smokeless tobacco: Never Vaping Use Vaping status: Never Used Substance Use Topics Alcohol use: Yes Comment: rare 1x/year Drug use: No Review of Systems Constitutional: Negative for chills, diaphoresis and fever. HENT: Negative for drooling, ear discharge, facial swelling, nosebleeds, sore throat and trouble swallowing. Eyes: Negative for discharge, redness, itching and visual disturbance. Respiratory: Negative for apnea, choking, chest tightness, shortness of breath, wheezing and stridor. Cardiovascular: Negative for chest pain and palpitations. Gastrointestinal: Negative for abdominal distention, abdominal pain, anal bleeding, blood in stool, nausea and vomiting. Endocrine: Negative for cold intolerance and heat intolerance. Genitourinary: Positive for urgency. Negative for genital sores, menstrual problem and vaginal bleeding. Musculoskeletal: Negative for gait problem, myalgias, neck pain and neck stiffness. Skin: Negative for pallor, rash and wound. Allergic/Immunologic: Negative for environmental allergies, food allergies and immunocompromised state. Neurological: Negative for dizziness, seizures, facial asymmetry, speech difficulty, light-headedness, numbness and headaches. Hematological: Negative for adenopathy. Does not bruise/bleed easily. Psychiatric/Behavioral: Negative for agitation, behavioral problems, confusion and hallucinations. OBJECTIVE: BP 124/68 (BP Site: Left Arm) Wt 65.8 kg (145 lb) BMI 27.40 kg/m Participation of a fellow, resident, medical student, or advanced practice provider student in performing the sensitive examination was discussed with the patient or authorized financial sales representative. The patient or authorized financial sales representative has agreed to proceed with the sensitive examination. (Sensitive examination includes inspection and/or palpation of the breasts, pelvis, prostate and anorectal regions) Physical Exam Constitutional: Appearance: She is well-developed. HENT: Head: Normocephalic and atraumatic. Eyes: Conjunctiva/sclera: Conjunctivae normal. Pupils: Pupils are equal, round, and reactive to light. Pulmonary: Effort: Pulmonary effort is normal. Abdominal: General: There is no distension. Palpations: Abdomen is soft. Musculoskeletal: General: Normal range of motion. Cervical back: Normal range of motion and neck supple. Skin: General: Skin is warm and dry. Neurological: Mental Status: She is alert and oriented to person, place, and time. Psychiatric: Behavior: Behavior normal. Thought Content: Thought content normal. Judgment: Judgment normal. Assessment & Plan OAB (overactive bladder) We discussed the patient's options for her OAB which include expectant management, behavioral modification and bladder training, pelvic floor rehabilitation, anticholinergic medications, Myrbetriq (a B3 adrenergic agonist), or a combination of these treatment modalities. We also discussed the option of sacroneuromodulation (Interstim), UrgentPC, REVI or Intravesical Botox. We discussed the importance of decreasing/eliminating her caffeine intake to help improve her urgency and frequency. The patient was counseled on the importance of kegel exercises for urge control. She was given a handout on OAB, bladder training and pelvic floor exercises. We discussed the risks of Botox including recurrent bladder infections, voiding dysfunction and the need for clean intermittent self-catheterization. There is also a small risk of bladder or bowel injury. Patient has met [facility] medical necessity criteria because she has had symptoms for several years, and it has impacted her quality of life. She has not responded to medication (including oxybutynin), conservative treatment (kegel, diet modification, pelvic muscle exercises, fluid management, timed voids, bladder retraining), other surgical produres. For these reasons she is a good candidate for botox. We will plan to do an intravesical botox injection. She was given educational information on botox. 100 units. If Botox does not work, will consider interstim. Orders: CYSTOSCOPY WHI; Future onabotulinum toxin type A 100 Units injection (BOTOX) Stress incontinence in female We discussed the patient's options for treatment of stress urinary incontinence which include expectant management, pelvic floor physical therapy, pessary or surgery (i.e. midurethral sling or intraurethral bulking agent). Expectant management for now. Consider bulkamid or sling if patient still has bothersome stress urinary incontinence once urge urinary incontinence is treated. Recurrent UTI Orders: sulfamethoxazole-trimethoprim (BACTRIM DS) 800-160 mg per tablet; Take 1 tablet by mouth two times a day for 2 doses. Take the morning and evening of your Botox procedure. Sixto Knowles MD documented in this encounter [facility] 08-08-2024 Instructions Sixto Knowles MD - 08/08/2024 2:29 PM EST Sacral Nerve Stimulation (Interstim Therapy by [employer]) A PROVEN TREATMENT OPTION FOR BLADDER AND BOWEL CONTROL Sacral nerve stimulation is a very safe, effective and minimally invasive approach to treating urinary incontinence due to overactive bladder, urinary retention (inability to empty the bladder) and fecal incontinence (involuntary loss of stool). The InterStim system is composed of a pacemaker and small lead that are placed are under the skin of the buttocks and near the tailbone. This system is much like a heart pacemaker but rather than working on the heart, this pacemaker is used to normalize the communication between the bladder/bowel and the brain. One way to understand how InterStim works is to think about it as white noise ; it interferes with the abnormal signals between the bowel, bladder and brain that are causing the unwanted symptoms. A distinct advantage of the InterStim system is that it is tested for potential success prior to moving on to long-term therapy. In other words, we make sure it works before the pacemaker is placed. In general, the evaluation is considered a success if the patient experiences at least a 50% improvement in his or her bladder control or bowel control symptoms. There are two ways to test to see if this system works for you: the basic evaluation and the advanced evaluation. Either one can be used to test for improvement in bladder or bowel control. In both evaluations, a portable, external battery (placed in a small elastic belt around your waist) generates the stimulation which is delivered via a lead; you wear this stimulator throughout the evaluation. Patients complete a symptom diary prior to the evaluation to establish a baseline measure of incontinence; and during the evaluation to measure improvement. DURING THE TEST PHASE, SPONGE BATHING WILL BE NECESSARY. The basic evaluation (also referred to as Peripheral Nerve Evaluation or PNE) is initiated through a simple, in-office procedure. The advanced evaluation (also referred to as Stage 1) is initiated through an outpatient procedure performed in a hospital or surgical center. Both evaluations are short-term, and the effects are reversible by removing the leads or turning off the device. Complications can occur with the evaluation, including infection (Stage I requires an oral antibiotic daily), movement of the wire and technical problems with the device. Once the device is in place, you can resume all normal activities including exercise. Given the tiny lead is made of metal, you will need to notify airport security and carry a medical parasitologist card with you when travelling. In addition, although most imaging procedures (like XRAYs, CT scans etc) are okay, you need to notify your doctor if you need an MRI. You can still have an MRI of the head but if an MRI of the body is needed, your doctor may need to find another way to image you or the device may need to be removed and later replaced. BOTOX TREATMENT INFORMATION Many people think overactive bladder (OAB) is just part of getting older. However, OAB is a chronic condition that requires ongoing treatment. HOW DOES BOTOX WORK? In your body, certain chemicals travel from nerve cells to muscle cells to make your bladder contract so that you can urinate. For people who have OAB, these muscles contract uncontrollably, creating leakage, the sudden strong need to go, and going too often. BOTOX is placed directly in the bladder muscle, helping block the nerve signals that trigger OAB. BEFORE THE PROCEDURE Before treating you with BOTOX , we must first receive your insurance company's approval. We will submit information to your insurance company for prior authorization to proceed with treatment, which can take 2 to 4 weeks, depending on your health plan. In some cases, we will need to obtain BOTOX through a specialty pharmacy. If this is required, the specialty pharmacy will contact you for permission to give the medication to our office and collect any needed copayment. We may have to move your appointment if approval is not received in time, but this is not typically an issue. We will also notify you if your insurance denies the procedure and discuss the next steps. You are responsible for any cost not covered by insurance. All balances must be paid in full before additional treatments will be provided. WHAT SHOULD I EXPECT? Dr. Knowles completes the procedure with support from a medical office technology instructor. The actual procedure takes about 3-5 minutes. The procedure may be uncomfortable, but any discomfort subsides after injections are received. You can drive and return to your regular activity, including work, immediately. The majority of patients receiving BOTOX have at least a 50% reduction of daily leakage episodes. Many of these patients reduced their leakage episodes by 75%. Approximately 1 in 4 of these patients reported leakage episodes stopped completely. After your first treatment, you will receive a phone call from the nurse to see how the treatment is working for you. If you do not have the results you were hoping for, we can often increase the dose. BOTOX works for up to 6 months, which is why re-treatment is about two times a year. You may start to notice results at two weeks. If your OAB symptoms return before six months, contact your doctor so you may be re-treated sooner. A minimum of 12 weeks is needed between treatments. ARE THERE ANY SIDE EFFECTS? The most common side effects after a BOTOX treatment are: Urinary tract infection (18% vs. 6% with placebo) Painful or difficult urination (9% vs. 7% placebo) Temporary inability to empty your bladder, which may require the use of a self-catheter (6% vs. 0% placebo) (VERY UNCOMMON!) However, most patients do not experience the above side effects and find tremendous relief from this treatment. IMPORTANT REBATE INFO!!! To enroll in the Botox Savings Program: [place] [phone] visit [email or web address] Call [phone] documented in this encounter [facility] 08-08-2024 Note HNO ID: [id number] Author: SIXTO KNOWLES MD Service: ? Author Type: Physician Type: Procedures Filed: 08/08/2024 14:39 Note Text: URODYNAMICS ID Verified by: Chriss Boston RN Did you watch the urodynamics video and or read the handout sent to you via [employer]? Yes, video only If you did not watch the video or read the PDF, what are your reasons? N/A URODYNAMIC PROCEDURE NOTE B/O UA: WNL INSPECTOR COLD WORKING: Negative UROFLOWMETRY Voided vol: 100 mL Flow time: 46 sec Q max: 10 mL/sec Q av mL/sec PVR: 50 mL CYSTOMETROGRAM Subtracted:Yes Video: No EMG: Yes First desire: 82 mL Strong desire: 85 mL Max. capacity: 122 mL Maximum filling detrusor pressure 48 cm of water Instability associated with urge: Yes Instability associated with leakage: Yes Leaks urine with valsalva /coughs: Yes Lowest Leak point pressure: 176 cm of water at 122 mL Was patient assessed for VLPP: Yes Was UPP done: No PRESSURE-FLOW VOIDING STUDY Voided: 137 mL Max Voiding Detrusor Pressure (Peak Pressure) 17cm H2O P det Q max (Max Flow) (Pressure at peak): -12 cm H2O Maximum Flow Rate: 19 mL/sec Average Flow Rate: 4 mL/sec Vaginal Packing for prolapse support: yes one swab in, and one swab out at the end of the case. Comments: Pt tolerated procedure. Home going instructions given. Study given to Dr. Knowles to review and discuss with patient. Please use Urodynamic Graph. Cystoscopy Indication: urinary incontinence UNIVERSAL PROTOCOL / SAFETY CHECKLIST Procedure to be Performed: Cystoscopy Sign In: A Moment of CARE was completed. Personnel directly involved with the procedure wore the appropriate PPE (Personal Protective Equipment). Patient/Surrogate Stated/Verified: PATIENT VERIFIED(optional for EMERGENT procedures): Patient name, Date of , Relevant allergies, and The intended procedure Time Out Communication: Intended patient and procedure match the source documents. Consent documented and matches the intended procedure. Sign Out: SIGN OUT (optional for EMERGENT procedures): No specimen collected. Sixto Knowles MD Procedure: After obtaining proper consent, the patient was placed into the lithotomy position and prepped/draped in sterile fashion. Lidocaine jelly was inserted per urethra. Rigid cystoscopy was performed with the following findings: Urethra Mucosa: normal Bladder Neck: normal Bladder: no tumors, clots, stones, or foreign bodies and ureteral orifices in normal location and configuration The bladder mucosa was examined completely. Patient tolerated procedure well and was discharged in stable condition. Complications: None Specimens: None Estimated Blood Loss: minimal ASSESSMENT: Filling and Storage: Bladder sensation is increased without bladder pain, with urgency and with detrusor overactivity incontinence. Bladder capacity is reduced. 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 Voiding: Overall voiding function is normal. Urine flow is continuous with a smooth flow curve. Detrusor function during voiding is normal consistent with a normal postvoid residual. Electromyography: Provocative maneuvers produced appropriate changes in waveforms. The EMG shows increased EMG activity with increased intraabdominal pressure. There was a decrease in the EMG activity during voiding consistent with normal function of the pelvic floor. Assessment AND Plan OAB (overactive bladder) We discussed the patient's options for her OAB which include expectant management, behavioral modification and bladder training, pelvic floor rehabilitation, anticholinergic medications, Myrbetriq (a B3 adrenergic agonist), or a combination of these treatment modalities. We also discussed the option of sacroneuromodulation (Interstim), UrgentPC, REVI or Intravesical Botox. We discussed the importance of decreasing/eliminating her caffeine intake to help improve her urgency and frequency. The patient was counseled on the importance of kegel exercises for urge control. She was given a handout on OAB, bladder training and pelvic floor exercises. We discussed the risks of Botox including recurrent bladder infections, voiding dysfunction and the need for clean intermittent self-catheterization. There is also a small risk of bladder or bowel injury. Patient has met S medical necessity criteria because she has had symptoms for several years, and it has impacted her quality of life. She has not responded to medication (including oxybutynin), conservative treatment (kegel, diet modification, pelvic muscle exercises, fluid management, timed voids, bladder retraining), other surgical produres. For these reasons she is a good candidate for botox. We will plan to do an intravesical botox injection. She was given educational information on botox. 100 units. Orders: CYSTOSCOPY WHI; Future onabotulinum toxin type A 100 Units injection (more content not included)... [facility] 08-08-2024 Procedure note Associated Ord er(s): URODYNAMICS WHI; CYSTOSCOPY WHI Procedure(s): COMPLEX CYSTOMETROGRAM VOIDING PRESSURE STUDIES; CYSTOURETHROSCOPY Pre-Procedure Diagnose(s): OAB (overactive bladder); Female stress incontinence Post-Procedure Diagnose(s): OAB (overactive bladder); Female stress incontinence URODYNAMICS ID Verified by: Chriss Boston RN Did you watch the urodynamics video and or read the handout sent to you via [employer]? Yes, video only If you did not watch the video or read the PDF, what are your reasons? N/A URODYNAMIC PROCEDURE NOTE B/O UA: WNL INSPECTOR COLD WORKING: Negative UROFLOWMETRY Voided vol: 100 mL Flow time: 46 sec Q max: 10 mL/sec Q av mL/sec PVR: 50 mL CYSTOMETROGRAM Subtracted:Yes Video: No EMG: Yes First desire: 82 mL Strong desire: 85 mL Max. capacity: 122 mL Maximum filling detrusor pressure 48 cm of water Instability associated with urge: Yes Instability associated with leakage: Yes Leaks urine with valsalva /coughs: Yes Lowest Leak point pressure: 176 cm of water at 122 mL Was patient assessed for VLPP: Yes Was UPP done: No PRESSURE-FLOW VOIDING STUDY Voided: 137 mL Max Voiding Detrusor Pressure (Peak Pressure) 17cm H2O P det Q max (Max Flow) (Pressure at peak): -12 cm H2O Maximum Flow Rate: 19 mL/sec Average Flow Rate: 4 mL/sec Vaginal Packing for prolapse support: yes one swab in, and one swab out at the end of the case. Comments: Pt tolerated procedure. Home going instructions given. Study given to Dr. Knowles to review and discuss with patient. Please use Urodynamic Graph. Cystoscopy Indication: urinary incontinence UNIVERSAL PROTOCOL / SAFETY CHECKLIST Procedure to be Performed: Cystoscopy Sign In: A Moment of CARE was completed. Personnel directly involved with the procedure wore the appropriate PPE (Personal Protective Equipment). Patient/Surrogate Stated/Verified: PATIENT VERIFIED(optional for EMERGENT procedures): Patient name, Date of , Relevant allergies, and The intended procedure Time Out Communication: Intended patient and procedure match the source documents. Consent documented and matches the intended procedure. Sign Out: SIGN OUT (optional for EMERGENT procedures): No specimen collected. Sixto Knowles MD Procedure: After obtaining proper consent, the patient was placed into the lithotomy position and prepped/draped in sterile fashion. Lidocaine jelly was inserted per urethra. Rigid cystoscopy was performed with the following findings: Urethra Mucosa: normal Bladder Neck: normal Bladder: no tumors, clots, stones, or foreign bodies and ureteral orifices in normal location and configuration The bladder mucosa was examined completely. Patient tolerated procedure well and was discharged in stable condition. Complications: None Specimens: None Estimated Blood Loss: minimal ASSESSMENT: Filling and Storage: Bladder sensation is increased without bladder pain, with urgency and with detrusor overactivity incontinence. Bladder capacity is reduced. 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 Voiding: Overall voiding function is normal. Urine flow is continuous with a smooth flow curve. Detrusor function during voiding is normal consistent with a normal postvoid residual. Electromyography: Provocative maneuvers produced appropriate changes in waveforms. The EMG shows increased EMG activity with increased intraabdominal pressure. There was a decrease in the EMG activity during voiding consistent with normal function of the pelvic floor. Assessment & Plan OAB (overactive bladder) We discussed the patient's options for her OAB which include expectant management, behavioral modification and bladder training, pelvic floor rehabilitation, anticholinergic medications, Myrbetriq (a B3 adrenergic agonist), or a combination of these treatment modalities. We also discussed the option of sacroneuromodulation (Interstim), UrgentPC, REVI or Intravesical Botox. We discussed the importance of decreasing/eliminating her caffeine intake to help improve her urgency and frequency. The patient was counseled on the importance of kegel exercises for urge control. She was given a handout on OAB, bladder training and pelvic floor exercises. We discussed the risks of Botox including recurrent bladder infections, voiding dysfunction and the need for clean intermittent self-catheterization. There is also a small risk of bladder or bowel injury. Patient has met S medical necessity criteria because she has had symptoms for several years, and it has impacted her quality of life. She has not responded to medication (including oxybutynin), conservative treatment (kegel, diet modification, pelvic muscle exercises, fluid management, timed voids, bladder retraining), other surgical produres. For these reasons she is a good candidate for botox. We will plan to do an intravesical botox injection. She was given educational information on botox. 100 units. Orders: CYSTOSCOPY WHI; Future onabotulinum toxin type A 100 Units injection (BOTOX) Stress incontinence in female We discussed the patient's options for treatment of stress urinary incontinence which include expectant management, pelvic floor physical therapy, pessary or surgery (i.e. midurethral sling or intraurethral bulking agent). Expectant management for now. Consider bulkamid or sling if patient still has bothersome stress urinary incontinence once urge urinary incontinence is treated. Recurrent UTI Orders: sulfamethoxazole-trimethoprim (BACTRIM DS) 800-160 mg per tablet; Take 1 tablet by mouth two times a day for 2 doses. Take the morning and evening of your Botox procedure. Sixto Knowles MD [facility] 08-08-2024 Procedure note Associated Ord er(s): URODYNAMICS WHI; CYSTOSCOPY WHI Procedure(s): COMPLEX CYSTOMETROGRAM VOIDING PRESSURE STUDIES; CYSTOURETHROSCOPY Pre-Procedure Diagnose(s): OAB (overactive bladder); Female stress incontinence Post-Procedure Diagnose(s): OAB (overactive bladder); Female stress incontinence URODYNAMICS ID Verified by: Chriss Boston RN Did you watch the urodynamics video and or read the handout sent to you via [employer]? Yes, video only If you did not watch the video or read the PDF, what are your reasons? N/A URODYNAMIC PROCEDURE NOTE B/O UA: WNL INSPECTOR COLD WORKING: Negative UROFLOWMETRY Voided vol: 100 mL Flow time: 46 sec Q max: 10 mL/sec Q av mL/sec PVR: 50 mL CYSTOMETROGRAM Subtracted:Yes Video: No EMG: Yes First desire: 82 mL Strong desire: 85 mL Max. capacity: 122 mL Maximum filling detrusor pressure 48 cm of water Instability associated with urge: Yes Instability associated with leakage: Yes Leaks urine with valsalva /coughs: Yes Lowest Leak point pressure: 176 cm of water at 122 mL Was patient assessed for VLPP: Yes Was UPP done: No PRESSURE-FLOW VOIDING STUDY Voided: 137 mL Max Voiding Detrusor Pressure (Peak Pressure) 17cm H2O P det Q max (Max Flow) (Pressure at peak): -12 cm H2O Maximum Flow Rate: 19 mL/sec Average Flow Rate: 4 mL/sec Vaginal Packing for prolapse support: yes one swab in, and one swab out at the end of the case. Comments: Pt tolerated procedure. Home going instructions given. Study given to Dr. Knowles to review and discuss with patient. Please use Urodynamic Graph. Cystoscopy Indication: urinary incontinence UNIVERSAL PROTOCOL / SAFETY CHECKLIST Procedure to be Performed: Cystoscopy Sign In: A Moment of CARE was completed. Personnel directly involved with the procedure wore the appropriate PPE (Personal Protective Equipment). Patient/Surrogate Stated/Verified: PATIENT VERIFIED(optional for EMERGENT procedures): Patient name, Date of , Relevant allergies, and The intended procedure Time Out Communication: Intended patient and procedure match the source documents. Consent documented and matches the intended procedure. Sign Out: SIGN OUT (optional for EMERGENT procedures): No specimen collected. Sixto Knowles MD Procedure: After obtaining proper consent, the patient was placed into the lithotomy position and prepped/draped in sterile fashion. Lidocaine jelly was inserted per urethra. Rigid cystoscopy was performed with the following findings: Urethra Mucosa: normal Bladder Neck: normal Bladder: no tumors, clots, stones, or foreign bodies and ureteral orifices in normal location and configuration The bladder mucosa was examined completely. Patient tolerated procedure well and was discharged in stable condition. Complications: None Specimens: None Estimated Blood Loss: minimal ASSESSMENT: Filling and Storage: Bladder sensation is increased without bladder pain, with urgency and with detrusor overactivity incontinence. Bladder capacity is reduced. 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 Voiding: Overall voiding function is normal. Urine flow is continuous with a smooth flow curve. Detrusor function during voiding is normal consistent with a normal postvoid residual. Electromyography: Provocative maneuvers produced appropriate changes in waveforms. The EMG shows increased EMG activity with increased intraabdominal pressure. There was a decrease in the EMG activity during voiding consistent with normal function of the pelvic floor. Assessment & Plan OAB (overactive bladder) We discussed the patient's options for her OAB which include expectant management, behavioral modification and bladder training, pelvic floor rehabilitation, anticholinergic medications, Myrbetriq (a B3 adrenergic agonist), or a combination of these treatment modalities. We also discussed the option of sacroneuromodulation (Interstim), UrgentPC, REVI or Intravesical Botox. We discussed the importance of decreasing/eliminating her caffeine intake to help improve her urgency and frequency. The patient was counseled on the importance of kegel exercises for urge control. She was given a handout on OAB, bladder training and pelvic floor exercises. We discussed the risks of Botox including recurrent bladder infections, voiding dysfunction and the need for clean intermittent self-catheterization. There is also a small risk of bladder or bowel injury. Patient has met [facility] medical necessity criteria because she has had symptoms for several years, and it has impacted her quality of life. She has not responded to medication (including oxybutynin), conservative treatment (kegel, diet modification, pelvic muscle exercises, fluid management, timed voids, bladder retraining), other surgical produres. For these reasons she is a good candidate for botox. We will plan to do an intravesical botox injection. She was given educational information on botox. 100 units. Orders: CYSTOSCOPY WHI; Future onabotulinum toxin type A 100 Units injection (BOTOX) Stress incontinence in female We discussed the patient's options for treatment of stress urinary incontinence which include expectant management, pelvic floor physical therapy, pessary or surgery (i.e. midurethral sling or intraurethral bulking agent). Expectant management for now. Consider bulkamid or sling if patient still has bothersome stress urinary incontinence once urge urinary incontinence is treated. Recurrent UTI Orders: sulfamethoxazole-trimethoprim (BACTRIM DS) 800-160 mg per tablet; Take 1 tablet by mouth two times a day for 2 doses. Take the morning and evening of your Botox procedure. Sixto Knowles MD documented in this encounter [facility] 08-01-2024 Instructions Sixto Knowles MD - 08/01/2024 10:18 AM EST Images from the original note were not included. BOTOX TREATMENT INFORMATION Many people think overactive bladder (OAB) is just part of getting older. However, OAB is a chronic condition that requires ongoing treatment. HOW DOES BOTOX WORK? In your body, certain chemicals travel from nerve cells to muscle cells to make your bladder contract so that you can urinate. For people who have OAB, these muscles contract uncontrollably, creating leakage, the sudden strong need to go, and going too often. BOTOX is placed directly in the bladder muscle, helping block the nerve signals that trigger OAB. BEFORE THE PROCEDURE Before treating you with BOTOX , we must first receive your insurance company's approval. We will submit information to your insurance company for prior authorization to proceed with treatment, which can take 2 to 4 weeks, depending on your health plan. In some cases, we will need to obtain BOTOX through a specialty pharmacy. If this is required, the specialty pharmacy will contact you for permission to give the medication to our office and collect any needed copayment. We may have to move your appointment if approval is not received in time, but this is not typically an issue. We will also notify you if your insurance denies the procedure and discuss the next steps. You are responsible for any cost not covered by insurance. All balances must be paid in full before additional treatments will be provided. WHAT SHOULD I EXPECT? Dr. Knowles completes the procedure with support from a medical office technology instructor. The actual procedure takes about 3-5 minutes. The procedure may be uncomfortable, but any discomfort subsides after injections are received. You can drive and return to your regular activity, including work, immediately. The majority of patients receiving BOTOX have at least a 50% reduction of daily leakage episodes. Many of these patients reduced their leakage episodes by 75%. Approximately 1 in 4 of these patients reported leakage episodes stopped completely. After your first treatment, you will receive a phone call from the nurse to see how the treatment is working for you. If you do not have the results you were hoping for, we can often increase the dose. BOTOX works for up to 6 months, which is why re-treatment is about two times a year. You may start to notice results at two weeks. If your OAB symptoms return before six months, contact your doctor so you may be re-treated sooner. A minimum of 12 weeks is needed between treatments. ARE THERE ANY SIDE EFFECTS? The most common side effects after a BOTOX treatment are: Urinary tract infection (18% vs. 6% with placebo) Painful or difficult urination (9% vs. 7% placebo) Temporary inability to empty your bladder, which may require the use of a self-catheter (6% vs. 0% placebo) (VERY UNCOMMON!) However, most patients do not experience the above side effects and find tremendous relief from this treatment. IMPORTANT REBATE INFO!!! To enroll in the Botox Savings Program: [place] [address] visit [email or web address] 8-621-02-BOTOX URODYNAMICS What is Urodynamics? Urodynamics refers to a series of diagnostic tests that evaluate the function of the bladder and urethra. These tests may be recommended if you have urinary incontinence (leakage of urine), recurrent bladder infections, slow or weak urinary stream, incomplete bladder emptying or frequent urination. The tests provide important information to accurately diagnose and treat your bladder problems appropriately. What happens during Urodynamics? A catheter (soft, hollow tube) or special sensor will be carefully placed in your urethra and sometimes your rectum to perform the study. Your provider will decide which of the following tests need to be performed to help diagnose and treat your condition. Uroflowmetry: Measure the speed and amount of urine you void. You should come to the test feeling as though you need to urinate. Try not to empty your bladder one hour before your test. You will be asked to urinate into a commode with a funnel attached to a computer that measures your urine flow. Cystometrogram Study: Evaluates how your bladder holds urine, measures your bladder capacity and also determines how well you can control your bladder. Your bladder is filled with fluid using a catheter. In order to reproduce bladder symptoms, you should report any sensations you feel during the study. In addition, you may be asked to cough, bear down, stand or walk in place during the test. At the end of the study, you will be asked to urinate. Pressure Flow Study: This study determines if there is an obstruction. After your bladder is filled using a catheter, you will be asked to urinate as you normally would. The study simultaneously records the bladder pressure and the urine flow rate. Procedure Preparation: Please arrive with a comfortably full bladder. You may eat or drink anything prior to the study. Take your medication as normally scheduled, unless otherwise directed. The test typically takes about 45 minutes to an hour and a half to complete and is generally painless, so anesthesia is not necessary. You will be ablet o resume all previous activities, including driving, at the completion of the study. IF YOU FEEL YOU HAVE A URINARY TRACT INFECTION, PLEASE CALL OUR OFFICE AT LEAST 24 HOURS BEFORE YOUR APPOINTMENT SO AN ANTIBIOTIC CAN BE STARTED PRIOR TO YOUR TESTING. CYSTOSCOPY What is a Cystoscopy? Cystoscopy is the name for a procedure allowing a provider to look inside your bladder and urethra with a special telescope called a cystoscope. The urethra is the tube that carries urine from the bladder to the outside of the body. Why is a cystoscopy performed? To help with diagnosis, a cystoscopy may be done to help find the cause of symptoms such as: Loss of bladder control (incontinence) or overactive bladder, frequent bladder infections, blood in the urine (hematuria), unusual cells found in a urine sample, pain in the bladder, urethra or during urination. This examination is more successful than other tests, like urine tests or ultrasound, in picking up problems such as bladder stones, bleeding, tumors, and structural abnormalities of the bladder. About the test: The procedure can be done in our office. It can also be done in the operating room if needed. On average, the test will take 5-10 minutes to complete. The lower part of your body will be covered with a drape. In most cases you will likely be on your back with your knees raised and apart. The provider will then gently insert the cystoscope into your bladder. When the camera is inserted, it may be a little uncomfortable; relaxing the pelvic floor muscles will make this part of the test easier. Most women tolerate the test very well. The provider will fill your bladder with a sterile liquid to allow a good view of the bladder wall. As your bladder fills you may feel an urge to urinate and some mild discomfort in the bladder. You will be able to empty the bladder as soon as the examination is over. Are there any risks? The risks of complications with this procedure are low. They include urinary tract infection, bleeding, injury to the bladder or urethra. What to expect afterwards: You may have some temporary mild burning feeling when you urinate, and you may see small amounts of blood in your urine. A warm bath or the application of a warm damp washcloth over your urethral opening may relieve the burning feeling. These problems should not last longer than 24 hours. Please call our office if problems last longer than a couple of days. There is a small risk of developing a urinary tract infection after the test. It is advisable to drink extra fluid after the procedure, about 3 liters (12-13 cups) of water evenly spaced over the next 24 hours. If you have signs of an infection including pain with urination, fever or chills, odor or cloudy urine, please call our office. You should normally be well enough to return to regular activity following your cystoscopy. documented in this encounter [facility] 08-01-2024 History of Present illness Narrative Female Pelvic Medicine & Reconstructive Surgery Follow-Up Tevin Villagomez is a 69 year old female, who presents for a follow-up of urinary incontinence, urinary urgency, urinary frequency. History since last visit: Pt on myrbetriq but it is not working since 07/11/24. During the night is worse. Pt also felt her prolapse is back since February. She has tried solifenacin and Myrbetriq and is not seeing any improvement. She has had some issues with urinary tract infection but her last symptomatic infection was in March 2024. ALLERGIES No Known Allergies Current Outpatient Medications Medication Sig mirabegron (MYRBETRIQ) 25 mg Tb24 Take 1 tablet by mouth once daily. estradiol (ESTRACE) 0.01 % (0.1 mg/gram) vaginal cream Apply a pea size amount to the vagina nightly for two weeks then 3 weeks for 1 year sertraline (ZOLOFT) 50 mg tablet Take 2 tablets by mouth daily at bedtime. esomeprazole (NEXIUM) 40 mg capsule Take 40 mg by mouth daily at 6 am. levothyroxine (SYNTHROID) 25 mcg tablet Take 25 mcg by mouth once daily. solifenacin (VESICARE) 5 mg tablet Take 1 tablet by mouth once daily. (Patient not taking: Reported on 08/01/2024) cephALEXin (KEFLEX) 250 mg capsule Take 1 capsule by mouth once daily. (Patient not taking: Reported on 08/01/2024) ibuprofen (MOTRIN) 600 mg tablet Take 1 tablet by mouth every 8 hours as needed for pain or fever (specify temp.). dicyclomine (BENTYL) 20 mg tablet Take 20 mg by mouth twice daily. (Patient not taking: Reported on 02/01/2024) sucralfate (CARAFATE) 1 gram tablet Take 1 g by mouth daily at bedtime. denosumab (PROLIA) 60 mg/mL 60 mg by Injection - FOR ORTHO USE ONLY route once every 6 months. meclizine (ANTIVERT) 12.5 mg tab Take 1 tablet by mouth twice daily as needed (dizziness). (Patient not taking: Reported on 12/17/2022) traMADol (ULTRAM) 50 mg tablet Take 50 mg by mouth every 8 hours as needed for pain. SUMAtriptan (IMITREX) 100 mg tablet Take 1 tablet by mouth as needed. at onset of headache.May repeat after 2 hours. LORazepam (ATIVAN) 1 mg tablet Take 1 tablet by mouth every 8 hours. (Patient taking differently: Take 1 mg by mouth two times a day as needed for anxiety.) acetaminophen 325 mg-caffeine 40 mg-butalbital 50 mg (FIORICET) per tablet Take 1 tablet by mouth every 6 hours as needed. (Patient taking differently: Take 1 tablet by mouth every 6 hours as needed for headache or pain.) promethazine (PHENERGAN) 25 mg tablet Take 1 tablet by mouth every 4 hours as needed for Nausea/Vomiting. No current facility-administered medications for this visit. PAST SURGICAL HISTORY Procedure Laterality Date ARTHROSCOPY KNEE DIAGNOSTIC W/WO SYNOVIAL BX SPX Right 2015 meniscus repair BLADDER SURGERY HX BREAST AUGMENTATION WITH IMPLANT 1991 Breast augmentation BUNIONECTOMY, LAPIDUS-TYPE Bilat. EGD 02/2016 Dr. Ojeda EGD - BALLOON DILATION, GUIDE 01/2022 ESOPHAGOGASTRODUODENOSCOPY TRANSORAL DIAGNOSTIC 11/[address] Ojeda EXT HYSTERECTOMY,W/PARTIAL VAGINECTO benign causes I & D ABSCESS, COMPLICATED N/A 06/28/2022 abdominal wound abscess KIDNEY STONE SURGERY HX Ureteral stents PALOMO W/O FACETEC FORAMOT/DSC 06/23 VRT SGM CRV 02/2014 cervicle fusion LAPAROSCOPY SURG CHOLECYSTECTOMY 04/2011 Cholecystectomy, lap MAMMOTOME BIOPSY RIGHT 2013 PAST SURGICAL HISTORY OF 2016 MOHS for basal cell on her back PAST SURGICAL HISTORY OF 03/2016 R TKA PAST SURGICAL HISTORY OF 06/28/2022 Incision and drainage of abdominal wound infection/abscess. Dr. Glynn REPAIR INCISIONAL HERNIA,REDUCIBLE 06/06/[address] Perez RPR PARAESOPH HIATAL HERNIA W/LAPT W/O MESH 04/22/2011 Laparotomy, Excision of esophageal leiomyoma and repair of esophageal wall, Esophagogastroscopy, Aditi fundoplication for Short esophagus, Type I hiatal hernia and Esophageal leiomyoma TONSILLECTOMY PRIMARY/SECONDARY <AGE 12 A CHILD Tonsillectomy PAST MEDICAL HISTORY Diagnosis Date Acquired hypothyroidism Anxiety Cystourethrocele Dysphagia Fibromyalgia GERD (gastroesophageal reflux disease) s/p surgery now controlled with zantac, Dr. Ojeda Hiatal hernia Leiomyoma 04/22/2011 ESOPHAGUS, excised 04/22/2011 Levoscoliosis of thoracic spine Migraine Neck pain cervicle fusion 03/05 Osteoarthritis ? RA Dr Lindsey mtx and irving Vaginal vault prolapse after hysterectomy FAMILY HISTORY Problem Relation Age of Onset Cancer Mother Lung at 72 y/o Psychiatry Mother nervous breakdown, had shock therapy Cancer Father Lung at 76 y/o Psychiatry Father had nervous breakdown, had shock therapy other (no colon cancer) Father other (no breast cancer) Father other (no diabetes) Father other (no cad) Father Psychiatry Brother Breast Cancer Daughter dx age 37 SOCIAL HISTORY Social History Tobacco Use Smoking status: Never Smokeless tobacco: Never Vaping Use Vaping status: Never Used Substance Use Topics Alcohol use: Yes Comment: rare 1x/year Drug use: No Review of Systems Constitutional: Negative for chills, diaphoresis and fever. HENT: Negative for drooling, ear discharge, facial swelling, nosebleeds, sore throat and trouble swallowing. Eyes: Negative for discharge, redness, itching and visual disturbance. Respiratory: Negative for apnea, choking, chest tightness, shortness of breath, wheezing and stridor. Cardiovascular: Negative for chest pain and palpitations. Gastrointestinal: Negative for abdominal distention, abdominal pain, anal bleeding, blood in stool, nausea and vomiting. Endocrine: Negative for cold intolerance and heat intolerance. Genitourinary: Positive for urgency. Negative for genital sores, menstrual problem and vaginal bleeding. Musculoskeletal: Negative for gait problem, myalgias, neck pain and neck stiffness. Skin: Negative for pallor, rash and wound. Allergic/Immunologic: Negative for environmental allergies, food allergies and immunocompromised state. Neurological: Negative for dizziness, seizures, facial asymmetry, speech difficulty, light-headedness, numbness and headaches. Hematological: Negative for adenopathy. Does not bruise/bleed easily. Psychiatric/Behavioral: Negative for agitation, behavioral problems, confusion and hallucinations. OBJECTIVE: BP 130/84 (BP Position: Sitting) Participation of a fellow, resident, medical student, or advanced practice provider student in performing the sensitive examination was discussed with the patient or authorized financial sales representative. The patient or authorized financial sales representative has agreed to proceed with the sensitive examination. (Sensitive examination includes inspection and/or palpation of the breasts, pelvis, prostate and anorectal regions) Physical Exam Constitutional: Appearance: She is well-developed. HENT: Head: Normocephalic and atraumatic. Eyes: Conjunctiva/sclera: Conjunctivae normal. Pupils: Pupils are equal, round, and reactive to light. Pulmonary: Effort: Pulmonary effort is normal. Abdominal: General: There is no distension. Palpations: Abdomen is soft. Musculoskeletal: General: Normal range of motion. Cervical back: Normal range of motion and neck supple. Skin: General: Skin is warm and dry. Neurological: Mental Status: She is alert and oriented to person, place, and time. Psychiatric: Behavior: Behavior normal. Thought Content: Thought content normal. Judgment: Judgment normal. Assessment & Plan OAB (overactive bladder) We discussed the patient's options for her OAB which include expectant management, behavioral modification and bladder training, pelvic floor rehabilitation, anticholinergic medications, Myrbetriq (a B3 adrenergic agonist), or a combination of these treatment modalities. We also discussed the option of sacroneuromodulation (Interstim), UrgentPC, REVI or Intravesical Botox. We discussed the importance of decreasing/eliminating her caffeine intake to help improve her urgency and frequency. The patient was counseled on the importance of kegel exercises for urge control. She was given a handout on OAB, bladder training and pelvic floor exercises. We will make a final plan once we have the results of her bladder testing. Likely proceed with Botox. Orders: URODYNAMICS WHI CYSTOSCOPY WHI; Future Sixto Knowles MD documented in this encounter [facility] 08-01-2024 Note HNO ID: [id number] Author: SIXTO KNOWLES MD Service: ? Author Type: Physician Type: Progress Notes Filed: 08/01/2024 11:23 Note Text: Female Pelvic Medicine AND Reconstructive Surgery Follow-Up Tevin Villagomez is a 69 year old female, who presents for a follow-up of urinary incontinence, urinary urgency, urinary frequency. History since last visit: Pt on myrbetriq but it is not working since 07/11/24. During the night is worse. Pt also felt her prolapse is back since February. She has tried solifenacin and Myrbetriq and is not seeing any improvement. She has had some issues with urinary tract infection but her last symptomatic infection was in March 2024. ALLERGIES No Known Allergies Current Outpatient Medications Medication Sig mirabegron (MYRBETRIQ) 25 mg Tb24 Take 1 tablet by mouth once daily. estradiol (ESTRACE) 0.01 % (0.1 mg/gram) vaginal cream Apply a pea size amount to the vagina nightly for two weeks then 3 weeks for 1 year sertraline (ZOLOFT) 50 mg tablet Take 2 tablets by mouth daily at bedtime. esomeprazole (NEXIUM) 40 mg capsule Take 40 mg by mouth daily at 6 am. levothyroxine (SYNTHROID) 25 mcg tablet Take 25 mcg by mouth once daily. solifenacin (VESICARE) 5 mg tablet Take 1 tablet by mouth once daily. (Patient not taking: Reported on 08/01/2024) cephALEXin (KEFLEX) 250 mg capsule Take 1 capsule by mouth once daily. (Patient not taking: Reported on 08/01/2024) ibuprofen (MOTRIN) 600 mg tablet Take 1 tablet by mouth every 8 hours as needed for pain or fever (specify temp.). dicyclomine (BENTYL) 20 mg tablet Take 20 mg by mouth twice daily. (Patient not taking: Reported on 02/01/2024) sucralfate (CARAFATE) 1 gram tablet Take 1 g by mouth daily at bedtime. denosumab (PROLIA) 60 mg/mL 60 mg by Injection - FOR ORTHO USE ONLY route once every 6 months. meclizine (ANTIVERT) 12.5 mg tab Take 1 tablet by mouth twice daily as needed (dizziness). (Patient not taking: Reported on 12/17/2022) traMADol (ULTRAM) 50 mg tablet Take 50 mg by mouth every 8 hours as needed for pain. SUMAtriptan (IMITREX) 100 mg tablet Take 1 tablet by mouth as needed. at onset of headache.May repeat after 2 hours. LORazepam (ATIVAN) 1 mg tablet Take 1 tablet by mouth every 8 hours. (Patient taking differently: Take 1 mg by mouth two times a day as needed for anxiety.) acetaminophen 325 mg-caffeine 40 mg-butalbital 50 mg (FIORICET) per tablet Take 1 tablet by mouth every 6 hours as needed. (Patient taking differently: Take 1 tablet by mouth every 6 hours as needed for headache or pain.) promethazine (PHENERGAN) 25 mg tablet Take 1 tablet by mouth every 4 hours as needed for Nausea/Vomiting. No current facility-administered medications for this visit. PAST SURGICAL HISTORY Procedure Laterality Date ARTHROSCOPY KNEE DIAGNOSTIC W/WO SYNOVIAL BX SPX Right 2015 meniscus repair BLADDER SURGERY HX BREAST AUGMENTATION WITH IMPLANT 1991 Breast augmentation BUNIONECTOMY, LAPIDUS-TYPE Bilat. EGD 02/2016 Dr. Ojeda EGD - BALLOON DILATION, GUIDE 01/2022 ESOPHAGOGASTRODUODENOSCOPY TRANSORAL DIAGNOSTIC 11/[address] Ojeda EXT HYSTERECTOMY,W/PARTIAL VAGINECTO benign causes I AND D ABSCESS, COMPLICATED N/A 06/28/2022 abdominal wound abscess KIDNEY STONE SURGERY HX Ureteral stents PALOMO W/O FACETEC FORAMOT/DSC 06/23 VRT SGM CRV 02/2014 cervicle fusion LAPAROSCOPY SURG CHOLECYSTECTOMY 04/2011 Cholecystectomy, lap MAMMOTOME BIOPSY RIGHT 2013 PAST SURGICAL HISTORY OF 2015 MOHS for basal cell on her back PAST SURGICAL HISTORY OF 03/2016 R TKA PAST SURGICAL HISTORY OF 06/28/2022 Incision and drainage of abdominal wound infection/abscess. Dr. Gylnn REPAIR INCISIONAL HERNIA,REDUCIBLE 06/06/[address] Perez RPR PARAESOPH HIATAL HERNIA W/LAPT W/O MESH 04/22/2011 Laparotomy, Excision of esophageal leiomyoma and repair of esophageal wall, Esophagogastroscopy, Aditi fundoplication for Short esophagus, Type I hiatal hernia and Esophageal leiomyoma TONSILLECTOMY PRIMARY/SECONDARY Tonsillectomy PAST MEDICAL HISTORY Diagnosis Date Acquired hypothyroidism Anxiety Cystourethrocele Dysphagia Fibromyalgia GERD (gastroesophageal reflux disease) s/p surgery now controlled with zantac, Dr. Ojeda Hiatal hernia Leiomyoma 04/22/2011 ESOPHAGUS, excised 04/22/2011 Levoscoliosis of thoracic spine Migraine Neck pain cervicle fusion 03/05 Osteoarthritis ? RA Dr César rios and irving Vaginal vault prolapse after hysterectomy FAMILY HISTORY Problem Relation Age of Onset Cancer Mother Lung at 72 y/o Psychiatry Mother nervous breakdown, had shock therapy Cancer Father Lung at 76 y/o Psychiatry Father had nervous breakdown, had shock therapy other (no colon cancer) Father other (no breast cancer) Father other (no diabetes) Father other (no cad) Father Psychiatry Brother Breast Can (more content not included)... [facility] 07-20-2024 Telephone encounter Note [facility] 07-20-2024 Miscellaneous Notes Images from the original note were not included. Attempted to call pt to see how she has been doing on daily prophylactic Keflex. Left msg her msg will be forwarded. Pt taking daily Keflex since 04/03/24 - will be out of med this week. Has f/u 08/01/[address] Knowles. Please advise if Keflex will be refilled or should pt wait to discuss with Dr. Knowles? [facility] 07/11/24 Assessment & Plan Urinary frequency Patient reports vesicare hasn't made any difference in her frequency. Continues to void every hour. We discussed trialing Myrbetriq 25mg daily, will follow up 4-6 weeks to discuss efficacy. Call office if medication is not covered by insurance. Orders: UA DIP, URINE (POC) Stress incontinence in female We discussed diagnosis of stress urinary incontinence and treatment options including: expectant management, pelvic floor physical therapy, incontinence pessary or Poise impressa, urethral bulking, or mid-urethral sling. After long discussion, she desires observation. Abnormal urinalysis Urinalysis- negative today. No further workup for microhematuria Follow up 4-6 weeks OAB med check Imelda Mtz RN documented in this encounter [facility] 07-20-2024 Telephone encounter Note Images from the original note were not included. Attempted to call pt to see how she has been doing on daily prophylactic Keflex. Left msg her msg will be forwarded. Pt taking daily Keflex since 04/03/24 - will be out of med this week. Has f/u 08/01/[address] Knowles. Please advise if Keflex will be refilled or should pt wait to discuss with Dr. Knowles? LV 07/11/24 Assessment & Plan Urinary frequency Patient reports vesicare hasn't made any difference in her frequency. Continues to void every hour. We discussed trialing Myrbetriq 25mg daily, will follow up 4-6 weeks to discuss efficacy. Call office if medication is not covered by insurance. Orders: UA DIP, URINE (POC) Stress incontinence in female We discussed diagnosis of stress urinary incontinence and treatment options including: expectant management, pelvic floor physical therapy, incontinence pessary or Poise impressa, urethral bulking, or mid-urethral sling. After long discussion, she desires observation. Abnormal urinalysis Urinalysis- negative today. No further workup for microhematuria Follow up 4-6 weeks OAB med check Imelda Mtz RN [facility] 07-11-2024 History of Present illness Narrative Female Pelvic Medicine & Reconstructive Surgery Follow-Up Tevin Villagomez is a 69 year old female, who presents for a follow-up of microscopic hematuria, OAB. MARIELA 02/24/24: IMPRESSION: Tevin Villagomez presents today for a diagnostic cystoscopy. Indication: recurrent UTI with history of bladder sling PLAN: -Repeat UA with micro in 2-4 weeks. If >3-5 RBCs/hpf she will needs CT urogram for microhematuria workup. I have discussed this with the patient. - For OAB, Trial vesicare- follow up virtual 4-6 weeks. Discuss SNM vs Botox. Pt leaning towards Botox. Laura Mcmanus MD History since last visit: Repeat UA Micro, ordered but not completed. Pt states the vesicare is not working at all. Voiding every 30 min to 1 hour. Getting up 5-6 times at night. 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 She has a previous history of an abnormal mammogram with benign breast biopsy. LMP: No LMP recorded. Patient has had a hysterectomy.; Menopause yes: Menstrual history: Menarche: 12; Deliveries: I have confirmed and edited as necessary, the PFSH obtained by others. Laura Mcmanus MD Curatorial Assistant offered: Patient accepts, visit chaperoned by RN. SENSITIVE EXAM: The sensitive examination was discussed with the Patient or Patient's Authorized Packager Head. As applicable, any other physician, advance practice provider, medical student, or other health professional student that will be observing or involved in the sensitive examination for educational or training purposes was discussed with the Patient or Authorized Packager Head. The Patient or Authorized Packager Head has agreed to proceed with the sensitive examination. (Sensitive examination includes inspection and/or palpation of the breasts, pelvis, prostate and anorectal regions). OBJECTIVE: BP 125/81 Pulse 84 General: Well appearing, alert, in no acute distress, well-hydrated, well nourished. Abdomen: Abdomen soft, non-tender UA results: normal Impression: Tevin Villagomez is a 69 year old female with urinary urgency/frequency, stress incontinence, abnormal UA. Plan: Assessment & Plan Urinary frequency Patient reports vesicare hasn't made any difference in her frequency. Continues to void every hour. We discussed trialing Myrbetriq 25mg daily, will follow up 4-6 weeks to discuss efficacy. Call office if medication is not covered by insurance. Orders: UA DIP, URINE (POC) Stress incontinence in female We discussed diagnosis of stress urinary incontinence and treatment options including: expectant management, pelvic floor physical therapy, incontinence pessary or Poise impressa, urethral bulking, or mid-urethral sling. After long discussion, she desires observation. Abnormal urinalysis Urinalysis- negative today. No further workup for microhematuria Follow up 4-6 weeks OAB med check Medical Decision Making: Problems: Moderate: 2+ stable chronic illnesses Data: Unique test result(s) reviewed: 2 Unique test(s) ordered: 1 Risk: Moderate: Drug management Medical Decision Making Level: 4 - Moderate Laura Mcmanus MD documented in this encounter [facility] 07-11-2024 Note HNO ID: [id number] Author: LAURA MCMANUS MD Service: ? Author Type: Physician Type: Progress Notes Filed: 07/11/2024 10:16 Note Text: Female Pelvic Medicine AND Reconstructive Surgery Follow-Up Tevin Villagomez is a 69 year old female, who presents for a follow-up of microscopic hematuria, OAB. MARIELA 02/24/24: IMPRESSION: Tevin Villagomez presents today for a diagnostic cystoscopy. Indication: recurrent UTI with history of bladder sling PLAN: -Repeat UA with micro in 2-4 weeks. If >3-5 RBCs/hpf she will needs CT urogram for microhematuria workup. I have discussed this with the patient. - For OAB, Trial vesicare- follow up virtual 4-6 weeks. Discuss SNM vs Botox. Pt leaning towards Botox. Laura Mcmanus MD History since last visit: Repeat UA Micro, ordered but not completed. Pt states the vesicare is not working at all. Voiding every 30 min to 1 hour. Getting up 5-6 times at night. 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 She has a previous history of an abnormal mammogram with benign breast biopsy. LMP: No LMP recorded. Patient has had a hysterectomy.; Menopause yes: Menstrual history: Menarche: 12; Deliveries: I have confirmed and edited as necessary, the PFSH obtained by others. Laura Mcmanus MD Curatorial Assistant offered: Patient accepts, visit chaperoned by RN. SENSITIVE EXAM: The sensitive examination was discussed with the Patient or Patient's Authorized Packager Head. As applicable, any other physician, advance practice provider, medical student, or other health professional student that will be observing or involved in the sensitive examination for educational or training purposes was discussed with the Patient or Authorized Packager Head. The Patient or Authorized Packager Head has agreed to proceed with the sensitive examination. (Sensitive examination includes inspection and/or palpation of the breasts, pelvis, prostate and anorectal regions). OBJECTIVE: BP 125/81 Pulse 84 General: Well appearing, alert, in no acute distress, well-hydrated, well nourished. Abdomen: Abdomen soft, non-tender UA results: normal Impression: Tevin Villagomez is a 69 year old female with urinary urgency/frequency, stress incontinence, abnormal UA. Plan: Assessment AND Plan Urinary frequency Patient reports vesicare hasn't made any difference in her frequency. Continues to void every hour. We discussed trialing Myrbetriq 25mg daily, will follow up 4-6 weeks to discuss efficacy. Call office if medication is not covered by insurance. Orders: UA DIP, URINE (POC) Stress incontinence in female We discussed diagnosis of stress urinary incontinence and treatment options including: expectant management, pelvic floor physical therapy, incontinence pessary or Poise impressa, urethral bulking, or mid-urethral sling. After long discussion, she desires observation. Abnormal urinalysis Urinalysis- negative today. No further workup for microhematuria Follow up 4-6 weeks OAB med check Medical Decision Making: Problems: Moderate: 2+ stable chronic illnesses Data: Unique test result(s) reviewed: 2 Unique test(s) ordered: 1 Risk: Moderate: Drug management Medical Decision Making Level: 4 - Moderate Laura Mcmanus MD [facility] 07-05-2024 Telephone encounter Note Called patient, confirmed name and . Patient has appointment scheduled for 07/11/24 at 9 am. Per epic encounter on 05/26/2024 patient wanted an alternative medication to Vesicare because it wasn't effective, patient was advised to discuss this at follow-up appointment with Dr. Mcmanus and to give the medication more time to be effective. Patient requesting a refill of Vesicare and stated it hasn't helped one little bit. This RN advised patient to discuss alternative medications/therapies with Dr. Mcmanus at her appointment on Thursday. Patient agreeable. Pharmacy updated to [facility] in [place]. Sam Andrade RN [facility] 07-05-2024 Miscellaneous Notes Called patient, confirmed name and . Patient has appointment scheduled for 07/11/24 at 9 am. Per epic encounter on 05/26/2024 patient wanted an alternative medication to Vesicare because it wasn't effective, patient was advised to discuss this at follow-up appointment with Dr. Mcmanus and to give the medication more time to be effective. Patient requesting a refill of Vesicare and stated it hasn't helped one little bit. This RN advised patient to discuss alternative medications/therapies with Dr. Mcmanus at her appointment on Thursday. Patient agreeable. Pharmacy updated to [facility] in [place]. Sam Andrade RN Patient has questions regarding Medications. She would like to speak to someone before her appointment on Thursday. She called the beginning of May with concerns, and never received a call back. Please call documented in this encounter [facility] 07-05-2024 Telephone encounter Note Patient has questions regarding Medications. She would like to speak to someone before her appointment on Thursday. She called the beginning of May with concerns, and never received a call back. Please call [facility] 05-26-2024 Telephone encounter Note Returned patient's call, verified name and . Patient reports taking Vesicare for 6 weeks without any improvement in urinary urgency/frequency. She would like to try an alternative medication. Pharmacy verified, routing to [facility]. Xiomy Patiño RN [facility] 05-26-2024 Miscellaneous Notes Returned patient's call, verified name and . Patient reports taking Vesicare for 6 weeks without any improvement in urinary urgency/frequency. She would like to try an alternative medication. Pharmacy verified, routing to [facility]. Xiomy Patiño RN Dr Mcmanus has her on medications for OAB, but patient states is it not working. She's been on it for over 6 weeks. She goes 4 times in an hour and sometimes she can't stop urinating or control her bladder. Patient would like to see if theres anything else that could help. documented in this encounter [facility] 05-26-[address] Mcmanus has her on medications for OAB, but patient states is it not working. She's been on it for over 6 weeks. She goes 4 times in an hour and sometimes she can't stop urinating or control her bladder. Patient would like to see if theres anything else that could help. [facility] 04-13-2024 Telephone encounter Note Medication requested: Prescription solifenacin (VESICARE) 5 mg tablet MARIELA: 02/29/24 IMPRESSION: Tevin Carlinherman presents today for a diagnostic cystoscopy. Indication: recurrent UTI with history of bladder sling PLAN: -Repeat UA with micro in 2-4 weeks. If >3-5 RBCs/hpf she will needs CT urogram for microhematuria workup. I have discussed this with the patient. - For OAB, Trial vesicare- follow up virtual 4-6 weeks. Discuss SNM vs Botox. Pt leaning towards Botox. Laura Mcmanus MD -- Future OV: 07/11/24 Placed call to patient, patient identified by name and . Patient reports she started Vesicare 03/25/24 and her Keflex 04/03/24. Patient endorsed she is not sure if the medication Vesicare is working since it has only been two weeks since starting. Patient requested refill on Vesicare to complete a 4-6 week trial of medication. Patient reports no burning with urination, no change to urgency, no change to frequency reporting she goes every 30-60 minutes sometimes, no pain and no pressure. Pharmacy confirmed. Allergies confirmed. Mary Beth Esquivel RN 04/13/24 @1050 [facility] 04-13-2024 Miscellaneous Notes Medication requested: Prescription solifenacin (VESICARE) 5 mg tablet MARIELA: 02/29/24 IMPRESSION: Tevin Opal Villagomez presents today for a diagnostic cystoscopy. Indication: recurrent UTI with history of bladder sling PLAN: -Repeat UA with micro in 2-4 weeks. If >3-5 RBCs/hpf she will needs CT urogram for microhematuria workup. I have discussed this with the patient. - For OAB, Trial vesicare- follow up virtual 4-6 weeks. Discuss SNM vs Botox. Pt leaning towards Botox. Laura Mcmanus MD -- Future OV: 07/11/24 Placed call to patient, patient identified by name and . Patient reports she started Vesicare 03/25/24 and her Keflex 04/03/24. Patient endorsed she is not sure if the medication Vesicare is working since it has only been two weeks since starting. Patient requested refill on Vesicare to complete a 4-6 week trial of medication. Patient reports no burning with urination, no change to urgency, no change to frequency reporting she goes every 30-60 minutes sometimes, no pain and no pressure. Pharmacy confirmed. Allergies confirmed. Mary Beth Esquivel RN 04/13/24 @1050 LVM to call the office back. Last note stated she took a dose last night. How long as she been taking this medication? Need pt to speak with RN. Zoraida Man RN April 04, 2024 2:01 PM Patient returning nurse call Pt picked up yesterday took one dose last night, no concerns as of now. Liliana Ray Electronically signed by [facility] [place] 03/29/2024 2:07 PM EDT Pharmacy requesting a 90 day supply. Per Laura Mcmanus MD- trailing Jannette. Has it been helpful? Any concerns/complaints? solifenacin (VESICARE) 5 mg tablet 30 tablet 1 02/29/2024 -- Sig: Take 1 tablet by mouth once daily. Sent to pharmacy as: solifenacin (VESICARE) 5 mg tablet Class: Normal Route: ORAL Order: [id number] E-Prescribing Status: Receipt confirmed by pharmacy (02/29/2024 2:26 PM EDT) E- [id number] [place] [address] - [id number] with Laura Mcmanus MD on 02/29/24 PLAN: -Repeat UA with micro in 2-4 weeks. If >3-5 RBCs/hpf she will needs CT urogram for microhematuria workup. I have discussed this with the patient. - For OAB, Trial vesicare- follow up virtual 4-6 weeks. Discuss SNM vs Botox. Pt leaning towards Botox. Future appointments: Future Appointments Date Time Provider Department Center 03/31/2024 1:00 PM Laura Mcmanus MD [id number] Zoraida Man RN March 29, 2024 1:06 PM Received fax from [employer] request 90 day prescription for: solifenacin (VESICARE) 5 mg tablet See scanned doc on 03/29 documented in this encounter [facility] 04-05-2024 Telephone encounter Note Called and spoke with pt. Verified by name and . Discussed with patient that OAB med can take 4-6 weeks for full affect and that a current UTI can mask the effects of the OAB medication. Pt states she will give the mediation more time and will then discuss at her F/U appt with Dr. Mcmanus in 4-8 weeks. Pt aware someone should be reaching out to her to schedule. Pt states she will also start the Keflex daily suppression therapy for recurrent UTIs sent to her pharmacy by Dr. Mcmanus on 04/03. She will pickler helper prescription and start taking after she completes her current course of Keflex for confirmed UTI. Charisse Atkinson RN [facility] 04-05-2024 Miscellaneous Notes Called and spoke with pt. Verified by name and . Discussed with patient that OAB med can take 4-6 weeks for full affect and that a current UTI can mask the effects of the OAB medication. Pt states she will give the mediation more time and will then discuss at her F/U appt with Dr. Mcmanus in 4-8 weeks. Pt aware someone should be reaching out to her to schedule. Pt states she will also start the Keflex daily suppression therapy for recurrent UTIs sent to her pharmacy by Dr. Mcmanus on 04/03. She will pickler helper prescription and start taking after she completes her current course of Keflex for confirmed UTI. Charisse Atkinson RN It can up to 30 days to see the full effects of the OAB medication. UTIs can also compound the symptoms. I recommend that she complete the Keflex and continue the Vesicare.She can then follow up as recommended- it sounds like Botox was being considered as next step. I will ask Dr. Mcmanus about the plan for UTI prophylaxis. Marylu Lyman APRN.[email or web address] Pt identified by name and . S: Tevin calls to report Vesicare prescribed on 03/25/24 is hardly working. 2 evenings ago she was up every 1/2 hour. States she has one more day of Keflex to treat UTI. Denies fever, chills, back pain, blood in urine, or foul smelling urine. States Dr. Mcmanus discussed sending in a daily antibiotic for her to take for 3 months to avoid getting UTI's. States her pharmacy never received the prescription. Asking what to do if Vesicare is not helping. B: MARIELA 02/29/24: IMPRESSION: Tevin Villagomez presents today for a diagnostic cystoscopy. Indication: recurrent UTI with history of bladder sling PLAN: -Repeat UA with micro in 2-4 weeks. If >3-5 RBCs/hpf she will needs CT urogram for microhematuria workup. I have discussed this with the patient. - For OAB, Trial vesicare- follow up virtual 4-6 weeks. Discuss SNM vs Botox. Pt leaning towards Botox. 02/01/24 visit: IMPRESSION: Tevin Villagomez is a 68 year old female with pelvic organ prolapse, urge urinary incontinence, stress urinary incontinence, recurrent UTI, vaginal atrophy. PLAN: 1. Recurrent pelvic organ prolapse, stage II a. We discussed treatment options including: observation, PFPT, pessary, or surgical options. We discussed surgical options including [place] tissue repair vs mesh augmented surgical repairs (sacrocolpopexy). Patient desires observation. She has hx of TVH, VVS, APR, sling with Dr. Sixto Knowles. Most bothersome complaint is recurrent UTI. If she desires surgery, recommend mesh augmented procedure due [place] and recurrent prolapse, sacrocolpopexy. 2. Mixed incontinence a. JUVENTINO: Discussed diagnosis and treatment options including: lifestyle and behavioral modifications, PFPT, anti-cholinergic and beta-3 agonists including side effects, and third line therapies such as PTNS, Intradetrusor Botox, and SNM. Has previously tried PFPT years ago. She would like to try lifestyle modifications first. Would like to address UTI initially. b. BEATRICE: Discussed diagnosis and treatment options including: observation, PFPT, incontinence pessaries/devices, urethral bulking, mesh midurethral sling, and non-mesh options including fascial sling or Elam. Patient would like to proceed with observation, has mesh sling in place. 3. Recurrent UTI a. We discussed treatment options including behavioral changes, vaginal estrogen, D-mannose, cranberry tablets, methenamine salts, and prophylactic antibiotics. Start vaginal estrogen nightly for 2 weeks then 3 weeks after that for a year. Will schedule cystoscopy given history of mesh sling procedure, large blood in urine, and UTIs. b. We discussed importance of dropping off urine specimen with our office so we can track bacteria and resistance patterns. She has previously been seeing her PCP for treatment. We do not have these records. 4. Vaginal atrophy A. Vaginal estrogen sent to pharmacy 5. Abnormal UA A. Large blood in urine, UA with micro sent. Schedule cystoscopy Follow up for cystoscopy, vaginal estrogen sent. Consider ppx antibiotics Laura Mcmanus MD 03/23/24: Culture >=100,000 CFU/ml Escherichia coli Abnormal Treated with Keflex. A: Not getting relief of OAB symptoms from taking Vesicare. Inquiring about prescription for 3 month prophylactic antibiotic. R: Informed Vesicare may take a month to see lessening of symptoms and several months for best results. Offered Virtual Visit Thursday with Dr. Mcmanus. States she does not know how to do VV and declined at this time. Next appt. is on 07/11/24. Informed message being forwarded to care team for review and to see how long she should continue to give Vesicare, and for 3 month daily antibiotic if appropriate. Please review/advise Estelle Mart RN Patient states she is taking prescribed medication, and it is not helping as much as she would like. She states not even 50%. She would like to speak to a nurse. documented in this encounter [facility] 04-05-2024 Telephone encounter Note It can up to 30 days to see the full effects of the OAB medication. UTIs can also compound the symptoms. I recommend that she complete the Keflex and continue the Vesicare.She can then follow up as recommended- it sounds like Botox was being considered as next step. I will ask Dr. Mcmanus about the plan for UTI prophylaxis. Marylu Lyman APRN.SHAHZAD [facility] Work Phone: 04-05-2024 Telephone encounter Note Pt identified by name and . S: Tevin calls to report Vesicare prescribed on 03/25/24 is hardly working. 2 evenings ago she was up every 1/2 hour. States she has one more day of Keflex to treat UTI. Denies fever, chills, back pain, blood in urine, or foul smelling urine. States Dr. Mcmanus discussed sending in a daily antibiotic for her to take for 3 months to avoid getting UTI's. States her pharmacy never received the prescription. Asking what to do if Vesicare is not helping. B: MARIELA 02/29/24: IMPRESSION: Tevinolya Villagomez presents today for a diagnostic cystoscopy. Indication: recurrent UTI with history of bladder sling PLAN: -Repeat UA with micro in 2-4 weeks. If >3-5 RBCs/hpf she will needs CT urogram for microhematuria workup. I have discussed this with the patient. - For OAB, Trial vesicare- follow up virtual 4-6 weeks. Discuss SNM vs Botox. Pt leaning towards Botox. 02/01/24 visit: IMPRESSION: Tevin Villagomez is a 68 year old female with pelvic organ prolapse, urge urinary incontinence, stress urinary incontinence, recurrent UTI, vaginal atrophy. PLAN: 1. Recurrent pelvic organ prolapse, stage II a. We discussed treatment options including: observation, PFPT, pessary, or surgical options. We discussed surgical options including [place] tissue repair vs mesh augmented surgical repairs (sacrocolpopexy). Patient desires observation. She has hx of TVH, VVS, APR, sling with Dr. Sxito Knowles. Most bothersome complaint is recurrent UTI. If she desires surgery, recommend mesh augmented procedure due [place] and recurrent prolapse, sacrocolpopexy. 2. Mixed incontinence a. JUVENTINO: Discussed diagnosis and treatment options including: lifestyle and behavioral modifications, PFPT, anti-cholinergic and beta-3 agonists including side effects, and third line therapies such as PTNS, Intradetrusor Botox, and SNM. Has previously tried PFPT years ago. She would like to try lifestyle modifications first. Would like to address UTI initially. b. BEATRICE: Discussed diagnosis and treatment options including: observation, PFPT, incontinence pessaries/devices, urethral bulking, mesh midurethral sling, and non-mesh options including fascial sling or Elam. Patient would like to proceed with observation, has mesh sling in place. 3. Recurrent UTI a. We discussed treatment options including behavioral changes, vaginal estrogen, D-mannose, cranberry tablets, methenamine salts, and prophylactic antibiotics. Start vaginal estrogen nightly for 2 weeks then 3 weeks after that for a year. Will schedule cystoscopy given history of mesh sling procedure, large blood in urine, and UTIs. b. We discussed importance of dropping off urine specimen with our office so we can track bacteria and resistance patterns. She has previously been seeing her PCP for treatment. We do not have these records. 4. Vaginal atrophy A. Vaginal estrogen sent to pharmacy 5. Abnormal UA A. Large blood in urine, UA with micro sent. Schedule cystoscopy Follow up for cystoscopy, vaginal estrogen sent. Consider ppx antibiotics Laura Mcmanus MD 03/23/24: Culture >=100,000 CFU/ml Escherichia coli Abnormal Treated with Keflex. A: Not getting relief of OAB symptoms from taking Vesicare. Inquiring about prescription for 3 month prophylactic antibiotic. R: Informed Vesicare may take a month to see lessening of symptoms and several months for best results. Offered Virtual Visit Thursday with Dr. Mcmanus. States she does not know how to do VV and declined at this time. Next appt. is on 07/11/24. Informed message being forwarded to care team for review and to see how long she should continue to give Vesicare, and for 3 month daily antibiotic if appropriate. Please review/advise Estelle Mart RN [facility] 04-05-2024 Telephone encounter Note Patient states she is taking prescribed medication, and it is not helping as much as she would like. She states not even 50%. She would like to speak to a nurse. [facility] 04-04-2024 Telephone encounter Note LVM to call the office back. Last note stated she took a dose last night. How long as she been taking this medication? Need pt to speak with RN. Zoraida Man RN April 04, 2024 2:01 PM [facility] 03-30-2024 Telephone encounter Note Patient did pickler helper script sent for UTI. Has follow up with me tomorrow to discuss recurrent UTI virtual visit. Laura Mcmanus MD [facility] 03-30-2024 Miscellaneous Notes Patient did pickler helper script sent for UTI. Has follow up with me tomorrow to discuss recurrent UTI virtual visit. Laura Mcmanus MD documented in this encounter [facility] 03-29-2024 Telephone encounter Note Patient returning nurse call Pt picked up yesterday took one dose last night, no concerns as of now. Liliana Ray Electronically signed by [facility] [place] at 03/29/2024 2:07 PM EDT [facility] Work Phone: 03-29-2024 Telephone encounter Note Pharmacy requesting a 90 day supply. Per Laura Mcmanus MD- trailing Vesicare. Has it been helpful? Any concerns/complaints? solifenacin (VESICARE) 5 mg tablet 30 tablet 1 02/29/2024 -- Sig: Take 1 tablet by mouth once daily. Sent to pharmacy as: solifenacin (VESICARE) 5 mg tablet Class: Normal Route: ORAL Order: [id number] E-Prescribing Status: Receipt confirmed by pharmacy (02/29/2024 2:26 PM EDT) E- [id number] [place] [address] - [address] [place] [address] [place] [address] with Laura Mcmanus MD on 02/29/24 PLAN: -Repeat UA with micro in 2-4 weeks. If >3-5 RBCs/hpf she will needs CT urogram for microhematuria workup. I have discussed this with the patient. - For OAB, Trial vesicare- follow up virtual 4-6 weeks. Discuss SNM vs Botox. Pt leaning towards Botox. Future appointments: Future Appointments Date Time Provider Department Center 03/31/2024 1:00 PM Laura Mcmanus MD [id number] Zoraida Man RN March 29, 2024 1:06 PM [facility] 03-29-2024 Telephone encounter Note Received fax from [facility] request 90 day prescription for: solifenacin (VESICARE) 5 mg tablet See scanned doc on 03/29 [facility] 03-28-2024 Telephone encounter Note Called patient to let her know about UTI. Left voicemail as no answer. I also sent mychart message. Laura Mcmanus MD [facility] 03-28-2024 Miscellaneous Notes Called patient to let her know about UTI. Left voicemail as no answer. I also sent [employer] Nowhart message. Laura Mcmanus MD documented in this encounter [facility] 03-28-2024 Telephone encounter Note UTI, keflex sent to pharmacy. [facility] 03-28-2024 Miscellaneous Notes UTI, keflex sent to pharmacy. documented in this encounter [facility] 03-07-2024 Telephone encounter Note MARIELA 02/29/24: IMPRESSION: Tevin Villagomez presents today for a diagnostic cystoscopy. Indication: recurrent UTI with history of bladder sling PLAN: -Repeat UA with micro in 2-4 weeks. If >3-5 RBCs/hpf she will needs CT urogram for microhematuria workup. I have discussed this with the patient. - For OAB, Trial vesicare- follow up virtual 4-6 weeks. Discuss SNM vs Botox. Pt leaning towards Botox. Laura Mcmanus MD [facility] 03-07-2024 Miscellaneous Notes MARIELA 02/29/24: IMPRESSION: Tevin Villagomez presents today for a diagnostic cystoscopy. Indication: recurrent UTI with history of bladder sling PLAN: -Repeat UA with micro in 2-4 weeks. If >3-5 RBCs/hpf she will needs CT urogram for microhematuria workup. I have discussed this with the patient. - For OAB, Trial vesicare- follow up virtual 4-6 weeks. Discuss SNM vs Botox. Pt leaning towards Botox. Laura Mcmanus MD documented in this encounter [facility] 02-29-2024 Instructions Laura Ferguson P - 02/29/2024 2:16 PM EDT Images from the original note were not included. CYSTOSCOPY HOMEGOING INSTRUCTIONS You have undergone a cystoscopy procedure where a telescope was inserted into your bladder through your urethra. What to expect: You may have a burning sensation during urination and/or blood-tinged urine. These symptoms will normally subside within 24 hours and with increased fluid intake. When to call the physician s office: If you have a fever of 100.4 degrees Fahrenheit or higher If you are unable to urinate If your urine becomes bloody and does not clear with increased fluid intake. If after 24 hours, you have signs of a urinary tract infection. UROGYNECOLOGY PHYSICIAN CONTACT INFORMATION During business hours, these numbers connect to your doctor s office. During the evening and weekends, these numbers will connect you to the answering service to speak with the doctor regional climate change analyst. Dr. King Dr. Yee Dr. Boucher Dr. Stnoe Dr. Patterson Dr. Hanks Dr. Knowles Dr. Rojo Dr. Mcmanus [place], [phone] Karen Lyman, CLERK OF SCALES Polly Terry, CLERK OF SCALES Nilson Murillo, CLERK OF SCALES Haydee Jon, CLERK OF SCALES Alberto Ferguson, CLERK OF SCALES Rupa Mcpherson, CLERK OF SCALES Please DO NOT use MyChart for procedure concerns. documented in this encounter [facility] 02-29-2024 History of Present illness Narrative 02/29/2024 Tevin Villagomez presents today for a diagnostic cystoscopy. Indication: recurrent UTI with history of bladder sling UNIVERSAL PROTOCOL / SAFETY CHECKLIST Procedure to be Performed: cystoscopy Sign In: A Moment of CARE was completed. Personnel directly involved with the procedure wore the appropriate PPE (Personal Protective Equipment). Patient/Surrogate Stated/Verified: PATIENT VERIFIED(optional for EMERGENT procedures): Patient name, Date of , Relevant allergies, and The intended procedure Time Out Communication: Intended patient and procedure match the source documents. Consent documented and matches the intended procedure. Sign Out: SIGN OUT (optional for EMERGENT procedures): Post-procedure follow-up management communicated and Plan of Care Visit completed when applicable. PROCEDURE: The patient was taken to the procedure room, placed in lithotomy position and prepped in the usual fashion. Anesthesia: Intraurethral Lidocaine jelly 6 mL. Video-assisted cystourethroscopy was performed using a 30 degree, 70 degree cystoscope with saline infusion. Findings: Normal bladder mucosa. No evidence of inflammation, stones, neoplasia, bladder diverticulum, trabeculations, or other bladder abnormalities. The bladder trigone and ureteral orifices were seen and no abnormalities noted. Normal urethra without inflammation, diverticulum, or other abnormality. No bladder stones noted Complications: none Procedure Summary: Patient tolerated procedure well. Medications: None IMPRESSION: Tevin Villagomez presents today for a diagnostic cystoscopy. Indication: recurrent UTI with history of bladder sling PLAN: -Repeat UA with micro in 2-4 weeks. If >3-5 RBCs/hpf she will needs CT urogram for microhematuria workup. I have discussed this with the patient. - For OAB, Trial vesicare- follow up virtual 4-6 weeks. Discuss SNM vs Botox. Pt leaning towards Botox. Laura Mcmanus MD documented in this encounter [facility] 02-29-2024 Note HNO ID: [id number] Author: LAURA MCMANUS MD Service: ? Author Type: Physician Type: Progress Notes Filed: 03/04/2024 13:03 Note Text: 02/29/2024 Tevin Villagomez presents today for a diagnostic cystoscopy. Indication: recurrent UTI with history of bladder sling UNIVERSAL PROTOCOL / SAFETY CHECKLIST Procedure to be Performed: cystoscopy Sign In: A Moment of CARE was completed. Personnel directly involved with the procedure wore the appropriate PPE (Personal Protective Equipment). Patient/Surrogate Stated/Verified: PATIENT VERIFIED(optional for EMERGENT procedures): Patient name, Date of , Relevant allergies, and The intended procedure Time Out Communication: Intended patient and procedure match the source documents. Consent documented and matches the intended procedure. Sign Out: SIGN OUT (optional for EMERGENT procedures): Post-procedure follow-up management communicated and Plan of Care Visit completed when applicable. PROCEDURE: The patient was taken to the procedure room, placed in lithotomy position and prepped in the usual fashion. Anesthesia: Intraurethral Lidocaine jelly 6 mL. Video-assisted cystourethroscopy was performed using a 30 degree, 70 degree cystoscope with saline infusion. Findings: Normal bladder mucosa. No evidence of inflammation, stones, neoplasia, bladder diverticulum, trabeculations, or other bladder abnormalities. The bladder trigone and ureteral orifices were seen and no abnormalities noted. Normal urethra without inflammation, diverticulum, or other abnormality. No bladder stones noted Complications: none Procedure Summary: Patient tolerated procedure well. Medications: None IMPRESSION: Tevin Villagomez presents today for a diagnostic cystoscopy. Indication: recurrent UTI with history of bladder sling PLAN: -Repeat UA with micro in 2-4 weeks. If >3-5 RBCs/hpf she will needs CT urogram for microhematuria workup. I have discussed this with the patient. - For OAB, Trial vesicare- follow up virtual 4-6 weeks. Discuss SNM vs Botox. Pt leaning towards Botox. Laura Mcmanus MD [facility] 02-17-2024 Telephone encounter Note Called patient back after she left a VM. She stated she passed a kidney stone a few days ago but since then she has felt the urge to urinate any time she moves. She is schedule for a cysto on 02/28, but wanted to make a sooner appt to discuss. I informed the patient that Dr. Mcmanus does not have sooner appointments, but that we could get her in sooner to see a SALES SUPPORT COORDINATOR to discuss her concerns. Patient declined seeing SALES SUPPORT COORDINATOR and will wait until 02/[address] Angulo since she established care with her already. [facility] 02-17-2024 Miscellaneous Notes Called patient back after she left a VM. She stated she passed a kidney stone a few days ago but since then she has felt the urge to urinate any time she moves. She is schedule for a cysto on 02/28, but wanted to make a sooner appt to discuss. I informed the patient that Dr. Mcmanus does not have sooner appointments, but that we could get her in sooner to see a SALES SUPPORT COORDINATOR to discuss her concerns. Patient declined seeing SALES SUPPORT COORDINATOR and will wait until 02/[address] Angulo since she established care with her already. documented in this encounter [facility] 02-01-2024 History of Present illness Narrative Female Pelvic Medicine & Reconstructive Surgery Consult CHIEF COMPLAINT: Tevin Villagomez is a 68 year old female who presents for consultation requested by Self Referred for an opinion regarding Mixed urge and stress incontinence, Pelvic Organ Prolapse , Recurrent UTI. HISTORY OF PRESENT ILLNESS: S/P prolapse repair with Dr. Sixto Knowles. Feels recurrent bulge x6 months. Has urinary frequency and feeling of incomplete emptying. Sometimes she feels unable to void if she needs to have a BM, will go back to the restroom later to void. Occasional mixed urinary incontinence, Stress=urge. Recurrent UTIs- reports 12 UTIs in the last year. States she goes to PCP for UCx & treatment. Voiding every 1 hour, every 30 minutes, Leakage sometimes Incontinence with bending PCP Cande Ely, been treating her for UTI. 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 She has a previous history of an abnormal mammogram with benign breast biopsy. LMP: No LMP recorded. Patient has had a hysterectomy.; Menopause no: Menstrual history: Menarche: 12; OB History T2 L0 SAB0 IAB0 Ectopic0 Multiple0 Live Births2 Comment: Menarche 12 S/P [facility] hysterectomy 1984 Deliveries: History of third or fourth degree laceration: had a tear with 2nd delivery, unsure of degree Weight of largest baby: [id number] Sexual function Sexually active: Sexual dysfunction: pain [id number] Do you: Usually experience pressure in the lower abdomen? No (0) Usually experience heaviness or dullness in the pelvic area? No (0) Usually have a bulge or something falling out that you can see or feel in your vaginal area? No (0) Ever have to push on the vagina or around the rectum to have or complete a bowel movement? No (0) Usually experience a feeling of incomplete bladder emptying? Yes, quite a bit bothersome (4) Ever have to push up on a bulge in the vaginal area with your fingers to start or complete urination? No (0) Feel you need to strain too hard to have a bowel movement? No (0) Feel you have not completely emptied your bowels at the end of a bowel movement? No (0) Usually lose stool beyond your control if your stool is well formed? No (0) Usually lose stool beyond your control if your stool is loose? No (0) Usually lose gas from the rectum beyond your control? No (0) Usually have pain when you pass your stool? No (0) Experience a strong sense of urgency and have to joshi to the bathroom to have a bowel movement? No (0) Does part of your bowel ever pass through the rectum and bulge outside during or after a bowel movement? No (0) Usually experience frequent urination? Yes, quite a bit bothersome (4) Usually experience urine leakage associated with a feeling of urgency, that is, a strong sensation of needing to go to the bathroom? Yes, moderately bothersome (3) Usually experience urine leakage related to coughing, sneezing or laughing? Yes, not at all bothersome (1) Usually experience small amounts of urine leakage (that is, drops)? Yes, not at all bothersome (1) Usually experience difficulty emptying your bladder? Yes, quite a bit bothersome (4) Usually experience pain or discomfort in the lower abdomen or genital region? Yes, not at all bothersome (1) Do you have pain associated with your prolapse (not pressure or fullness) Yes, what is your typical prolapse related pain on a scale of 0-10? 4 Where is your pain located? vagina PAST SURGICAL HISTORY 2016: ARTHROSCOPY KNEE DIAGNOSTIC W/WO SYNOVIAL BX SPX; Right Comment: meniscus repair No date: BLADDER SURGERY HX 1991: BREAST AUGMENTATION WITH IMPLANT Comment: Breast augmentation s: BUNIONECTOMY, LAPIDUS-TYPE Comment: Bilat. 02/2016: EGD Comment: Dr. Ojeda 01/2022: EGD - BALLOON DILATION, GUIDE 11/2013: ESOPHAGOGASTRODUODENOSCOPY TRANSORAL DIAGNOSTIC Comment: EGD Dr. Ojeda s: EXT HYSTERECTOMY,W/PARTIAL VAGINECTO Comment: benign causes 06/28/2022: I & D ABSCESS, COMPLICATED; N/A Comment: abdominal wound abscess No date: KIDNEY STONE SURGERY HX Comment: Ureteral stents 02/2014: PALOMO W/O FACETEC FORAMOT/DSC 1/2 VRT SGM CRV Comment: cervicle fusion 04/2011: LAPAROSCOPY SURG CHOLECYSTECTOMY Comment: Cholecystectomy, lap 2013: MAMMOTOME BIOPSY RIGHT 2016: PAST SURGICAL HISTORY OF Comment: MOHS for basal cell on her back 03/2016: PAST SURGICAL HISTORY OF Comment: R TKA 06/28/2022: PAST SURGICAL HISTORY OF Comment: Incision and drainage of abdominal wound infection/abscess. Dr. Glynn 06/06/2022: REPAIR INCISIONAL HERNIA,REDUCIBLE Comment: with mesh. Dr. Perez 04/22/2011: RPR PARAESOPH HIATAL HERNIA W/LAPT W/O MESH Comment: Laparotomy, Excision of esophageal leiomyoma and repair of esophageal wall, Esophagogastroscopy, Aditi fundoplication for Short esophagus, Type I hiatal hernia and Esophageal leiomyoma A CHILD: TONSILLECTOMY PRIMARY/SECONDARY <AGE 12 Comment: Tonsillectomy PAST MEDICAL HISTORY No date: Acquired hypothyroidism No date: Anxiety No date: Cystourethrocele No date: Dysphagia No date: Fibromyalgia No date: GERD (gastroesophageal reflux disease) Comment: s/p surgery now controlled with zantac, Dr. Ojeda No date: Hiatal hernia 04/22/2011: Leiomyoma Comment: ESOPHAGUS, excised 04/22/2011 No date: Levoscoliosis of thoracic spine No date: Migraine No date: Neck pain Comment: cervicle fusion 03/05 No date: Osteoarthritis Comment: ? RA Dr Lindsey mtx and [place]ving No date: Vaginal vault prolapse after hysterectomy FAMILY HISTORY Problem Relation Age of Onset Cancer Mother Lung at 72 y/o Psychiatry Mother nervous breakdown, had shock therapy Cancer Father Lung at 76 y/o Psychiatry Father had nervous breakdown, had shock therapy other (no colon cancer) Father other (no breast cancer) Father other (no diabetes) Father other (no cad) Father Psychiatry Brother Current Outpatient Medications Medication Sig sertraline (ZOLOFT) 50 mg tablet Take 2 tablets by mouth daily at bedtime. ibuprofen (MOTRIN) 600 mg tablet Take 1 tablet by mouth every 8 hours as needed for pain or fever (specify temp.). dicyclomine (BENTYL) 20 mg tablet Take 20 mg by mouth twice daily. sucralfate (CARAFATE) 1 gram tablet Take 1 g by mouth daily at bedtime. denosumab (PROLIA) 60 mg/mL 60 mg by Injection - FOR ORTHO USE ONLY route once every 6 months. meclizine (ANTIVERT) 12.5 mg tab Take 1 tablet by mouth twice daily as needed (dizziness). (Patient not taking: Reported on 12/17/2022) esomeprazole (NEXIUM) 40 mg capsule Take 40 mg by mouth daily at 6 am. levothyroxine (SYNTHROID) 25 mcg tablet Take 25 mcg by mouth once daily. traMADol (ULTRAM) 50 mg tablet Take 50 mg by mouth every 8 hours as needed for pain. SUMAtriptan (IMITREX) 100 mg tablet Take 1 tablet by mouth as needed. at onset of headache.May repeat after 2 hours. LORazepam (ATIVAN) 1 mg tablet Take 1 tablet by mouth every 8 hours. (Patient taking differently: Take 1 mg by mouth two times a day as needed for anxiety.) acetaminophen 325 mg-caffeine 40 mg-butalbital 50 mg (FIORICET) per tablet Take 1 tablet by mouth every 6 hours as needed. (Patient taking differently: Take 1 tablet by mouth every 6 hours as needed for headache or pain.) promethazine (PHENERGAN) 25 mg tablet Take 1 tablet by mouth every 4 hours as needed for Nausea/Vomiting. No current facility-administered medications for this visit. ALLERGIES No Known Allergies SOCIAL HISTORY Social History Tobacco Use Smoking status: Never Smokeless tobacco: Never Vaping Use Vaping Use: Never used Substance Use Topics Alcohol use: Yes Comment: rare 1x/year Drug use: No Occupation: [employer] Marital Status: REVIEW OF SYSTEMS General: Negative for unintentional weight loss, fever, chills, or weakness. Skin: Negative for rash or itching. Psychiatric: Negative for depression. Reports normal stress. Neurologic: Negative for new headache or syncope. Endocrine: sweating, cold intolerance,heat intolerance Cardiovascular: Negative for recent chest pain, chest pressure or chest discomfort. Hematologic/Lymphatic: easy bruising Respiratory: Negative for wheezing, shortness of breath or persistent cough. Gastrointestinal: Negative for persistent abdominal pain. Negative for anorexia, persistent nausea and/or vomiting. Musculoskeletal: muscle pain, joint pain, joint stiffness, back pain I have confirmed and edited as necessary, the PFSH and ROS obtained by others. Laura Mcmanus MD Curatorial Assistant offered: Patient accepts, visit chaperoned by RN. OBJECTIVE: BP 131/77 Pulse 82 Wt 151 lb (68.5kg) Physical Exam Constitutional: BMI - There is no height or weight on file to calculate BMI. General Appearance: Well appearing, alert, in no acute distress, well-hydrated, well nourished. Skin: Skin color, texture, turgor normal, no suspicious rashes or lesions Lungs: Unlabored on room air Heart: Not examined Breasts: Deferred Abdomen: Abdomen soft, non-tender Pelvic: External Genitalia: No lesions or other abnormalities POP-Q: Prolapse Noted: Yes Aa = +1.0 Ba = +1.0 C = -4.0 gh = 3.5 pb = 3.0 tvl = 9.0 Ap = -3.0 Bp = -3.0 D = NA Vaginal epithelium: Atrophic Cervix: Absent Urethra: Normal, Hypermobile, Supine cough stress test negative Bimanual: No tenderness, No masses Rectovaginal: No tenderness, No masses Levator Ani Contraction: 0 Levator Ani Tone: normal Levator Ani Tenderness: No Saddle Sensory Exam (S2-4): normal UA results: abnormal Large blood Bladder scan: PVR 0 mL IMPRESSION: Tevin Villagomez is a 68 year old female with pelvic organ prolapse, urge urinary incontinence, stress urinary incontinence, recurrent UTI, vaginal atrophy. PLAN: Recurrent pelvic organ prolapse, stage II We discussed treatment options including: observation, PFPT, pessary, or surgical options. We discussed surgical options including [place] tissue repair vs mesh augmented surgical repairs (sacrocolpopexy). Patient desires observation. She has hx of TVH, VVS, APR, sling with Dr. Sixto Knowles. Most bothersome complaint is recurrent UTI. If she desires surgery, recommend mesh augmented procedure due [place] and recurrent prolapse, sacrocolpopexy. Mixed incontinence JUVENTINO: Discussed diagnosis and treatment options including: lifestyle and behavioral modifications, PFPT, anti-cholinergic and beta-3 agonists including side effects, and third line therapies such as PTNS, Intradetrusor Botox, and SNM. Has previously tried PFPT years ago. She would like to try lifestyle modifications first. Would like to address UTI initially. BEATRICE: Discussed diagnosis and treatment options including: observation, PFPT, incontinence pessaries/devices, urethral bulking, mesh midurethral sling, and non-mesh options including fascial sling or Elam. Patient would like to proceed with observation, has mesh sling in place. Recurrent UTI We discussed treatment options including behavioral changes, vaginal estrogen, D-mannose, cranberry tablets, methenamine salts, and prophylactic antibiotics. Start vaginal estrogen nightly for 2 weeks then 3 weeks after that for a year. Will schedule cystoscopy given history of mesh sling procedure, large blood in urine, and UTIs. We discussed importance of dropping off urine specimen with our office so we can track bacteria and resistance patterns. She has previously been seeing her PCP for treatment. We do not have these records. Vaginal atrophy A. Vaginal estrogen sent to pharmacy 5. Abnormal UA A. Large blood in urine, UA with micro sent. Schedule cystoscopy Follow up for cystoscopy, vaginal estrogen sent. Consider ppx antibiotics Medical Decision Making: Problems: Moderate: 2+ stable chronic illnesses Data: Unique test(s) ordered: 3+ Medical Decision Making Level: 4 - Moderate Laura Mcmanus MD documented in this encounter [facility] 02-01-2024 Note HNO ID: [id number] Author: LAURA MCMANUS MD Service: ? Author Type: Physician Type: Progress Notes Filed: 02/01/2024 11:42 Note Text: Female Pelvic Medicine AND Reconstructive Surgery Consult CHIEF COMPLAINT: Tevin Villagomez is a 68 year old female who presents for consultation requested by Self Referred for an opinion regarding Mixed urge and stress incontinence, Pelvic Organ Prolapse , Recurrent UTI. HISTORY OF PRESENT ILLNESS: S/P prolapse repair with Dr. Sixto Knowles. Feels recurrent bulge x6 months. Has urinary frequency and feeling of incomplete emptying. Sometimes she feels unable to void if she needs to have a BM, will go back to the restroom later to void. Occasional mixed urinary incontinence, Stress=urge. Recurrent UTIs- reports 12 UTIs in the last year. States she goes to PCP for UCx AND treatment. Voiding every 1 hour, every 30 minutes, Leakage sometimes Incontinence with bending PCP Cande Ely, been treating her for UTI. 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 She has a previous history of an abnormal mammogram with benign breast biopsy. LMP: No LMP recorded. Patient has had a hysterectomy.; Menopause no: Menstrual history: Menarche: 12; OB History T2 L0 SAB0 IAB0 Ectopic0 Multiple0 Live Births2 Comment: Menarche 12 S/P c hysterectomy 1985 Deliveries: History of third or fourth degree laceration: had a tear with 2nd delivery, unsure of degree Weight of largest baby: [id number] Sexual function Sexually active: Sexual dysfunction: pain PFDI-20 Do you: Usually experience pressure in the lower abdomen? No (0) Usually experience heaviness or dullness in the pelvic area? No (0) Usually have a bulge or something falling out that you can see or feel in your vaginal area? No (0) Ever have to push on the vagina or around the rectum to have or complete a bowel movement? No (0) Usually experience a feeling of incomplete bladder emptying? Yes, quite a bit bothersome (4) Ever have to push up on a bulge in the vaginal area with your fingers to start or complete urination? No (0) Feel you need to strain too hard to have a bowel movement? No (0) Feel you have not completely emptied your bowels at the end of a bowel movement? No (0) Usually lose stool beyond your control if your stool is well formed? No (0) Usually lose stool beyond your control if your stool is loose? No (0) Usually lose gas from the rectum beyond your control? No (0) Usually have pain when you pass your stool? No (0) Experience a strong sense of urgency and have to joshi to the bathroom to have a bowel movement? No (0) Does part of your bowel ever pass through the rectum and bulge outside during or after a bowel movement? No (0) Usually experience frequent urination? Yes, quite a bit bothersome (4) Usually experience urine leakage associated with a feeling of urgency, that is, a strong sensation of needing to go to the bathroom? Yes, moderately bothersome (3) Usually experience urine leakage related to coughing, sneezing or laughing? Yes, not at all bothersome (1) Usually experience small amounts of urine leakage (that is, drops)? Yes, not at all bothersome (1) Usually experience difficulty emptying your bladder? Yes, quite a bit bothersome (4) Usually experience pain or discomfort in the lower abdomen or genital region? Yes, not at all bothersome (1) Do you have pain associated with your prolapse (not pressure or fullness) Yes, what is your typical prolapse related pain on a scale of 0-10? 4 Where is your pain located? vagina PAST SURGICAL HISTORY 2016: ARTHROSCOPY KNEE DIAGNOSTIC W/WO SYNOVIAL BX SPX; Right Comment: meniscus repair No date: BLADDER SURGERY HX 1991: BREAST AUGMENTATION WITH IMPLANT Comment: Breast augmentation : BUNIONECTOMY, LAPIDUS-TYPE Comment: Bilat. 02/2016: EGD Comment: Dr. Ojeda 01/2022: EGD - BALLOON DILATION, GUIDE 11/2013: ESOPHAGOGASTRODUODENOSCOPY TRANSORAL DIAGNOSTIC Comment: EGD Dr. Ojeda 1989's: EXT HYSTERECTOMY,W/PARTIAL VAGINECTO Comment: benign causes 06/28/2022: I AND D ABSCESS, COMPLICATED; N/A Comment: abdominal wound abscess No date: KIDNEY STONE SURGERY HX Comment: Ureteral stents 02/2014: PALOMO W/O FACETEC FORAMOT/DSC 1/2 VRT SGM CRV Comment: cervicle fusion 04/2011: LAPAROSCOPY SURG CHOLECYSTECTOMY Comment: Cholecystectomy, lap 2013: MAMMOTOME BIOPSY RIGHT 2016: PAST SURGICAL HISTORY OF Comment: MOHS for basal cell on her back 03/2016: PAST SURGICAL HISTORY OF Comment: R TKA 06/28/2022: PAST SURGICAL HISTORY OF Comment: Incision and drainage of abdominal wound infection/abscess. Dr. Glynn 06/06/2022: REPAIR INCISIONAL HERNIA,REDUCIBLE Comment: with mesh. Dr. Perez 04/22/2011: RPR PARAESOPH HIATAL HERNIA W/LAPT W/O (more content not included)... [facility] 01-16-2024 History of Present illness Narrative Radiology Service Progress Note PATIENT NAME: Tevin Villagomez DATE OF SERVICE: January 16, 2024 TIME: 9:18 AM PATIENT IDENTITY VERIFICATION COMPLETED USING TWO (2) IDENTIFIERS: Name and Date of confirmed by patient verbally. FALL SCREENING: Has the patient had 2 falls in the last year or 1 fall with injury or currently using an Ambulatory Assistive Device (Walker, Cane, Wheelchair, Crutches, etc.)? No PATIENT GENDER DATA: Female. status: : No status: NO. PATIENT RELEVANT IMPLANT DATA REVIEWED: Not Applicable PATIENT PRESENTS WITH AN IMPLANTABLE OR ATTACHED CARPENTRY SPECIALIST: No RADIOLOGY DEPARTMENT: General X-ray: Exam(s) Completed: Abdomen X-Ray: Abdomen with Upright PERIPHERAL IV DATA: Not applicable SIGNED BY: RT Elly(R) January 16, 2024 9:18 AM documented in this encounter [facility] 01-16-2024 Note HNO ID: [id number] Author: CYNTHIA LUJAN RT(R) Service: Radiology Author Type: Technologist Type: Progress Notes Filed: 01/16/2024 09:19 Note Text: Radiology Service Progress Note PATIENT NAME: Tevin Villagomez DATE OF SERVICE: January 16, 2024 TIME: 9:18 AM PATIENT IDENTITY VERIFICATION COMPLETED USING TWO (2) IDENTIFIERS: Name and Date of confirmed by patient verbally. FALL SCREENING: Has the patient had 2 falls in the last year or 1 fall with injury or currently using an Ambulatory Assistive Device (Walker, Cane, Wheelchair, Crutches, etc.)? No PATIENT GENDER DATA: Female. status: : No status: NO. PATIENT RELEVANT IMPLANT DATA REVIEWED: Not Applicable PATIENT PRESENTS WITH AN IMPLANTABLE OR ATTACHED CARPENTRY SPECIALIST: No RADIOLOGY DEPARTMENT: General X-ray: Exam(s) Completed: Abdomen X-Ray: Abdomen with Upright PERIPHERAL IV DATA: Not applicable SIGNED BY: JONY Sanabria) January 16, 2024 9:18 AM [facility] 11-27-2023 Telephone encounter Note Summary: Results Received call back from patient.Verified name and date of . Informed patient that her breast biopsy came back benign. Verified follow up appointment and encouraged patient to keep appointment for further recommendations from the doctor. Anthony Graves RN, BSN [facility] 11-27-2023 Miscellaneous Notes Summary: Results Received call back from patient.Verified name and date of . Informed patient that her breast biopsy came back benign. Verified follow up appointment and encouraged patient to keep appointment for further recommendations from the doctor. Anthony Graves RN, BSN Summary: Results Call placed to patient with breast biopsy results. Patient did not answer, voicemail left identifying self and return number. Anthony Graves RN, BSN documented in this encounter [facility] 11-27-2023 Telephone encounter Note Summary: Results Call placed to patient with breast biopsy results. Patient did not answer, voicemail left identifying self and return number. Anthony Graves RN, BSN [facility] 11-26-2023 Telephone encounter Note Summary: Results Call placed to patient with breast biopsy results. Patient did not answer, voicemail left identifying self and return number. Anthony Graves RN, BSN [facility] 11-26-2023 Miscellaneous Notes Summary: Results Call placed to patient with breast biopsy results. Patient did not answer, voicemail left identifying self and return number. Anthony Graves RN, BSN documented in this encounter [facility] 11-24-2023 History of Present illness Narrative Radiology Service Progress Note PATIENT NAME: Tevin Villagomez DATE OF SERVICE: November 24, 2023 TIME: 8:30 AM PATIENT IDENTITY VERIFICATION COMPLETED USING TWO (2) IDENTIFIERS: Name and Date of confirmed by patient verbally. FALL SCREENING: Has the patient had 2 falls in the last year or 1 fall with injury or currently using an Ambulatory Assistive Device (Walker, Cane, Wheelchair, Crutches, etc.)? No PATIENT GENDER DATA: Female. status: : No status: NO. PATIENT RELEVANT IMPLANT DATA REVIEWED: Not Applicable PATIENT PRESENTS WITH AN IMPLANTABLE OR ATTACHED CARPENTRY SPECIALIST: No RADIOLOGY DEPARTMENT: Ultrasound PERIPHERAL IV DATA: Not applicable SIGNED BY: RT Shannon(R) November 24, 2023 8:30 AM documented in this encounter [facility] 11-24-2023 Note HNO ID: [id number] Author: SANTY CLEVELAND RT(Shirley) Service: ? Author Type: Technologist Type: Progress Notes Filed: 11/24/2023 08:30 Note Text: Radiology Service Progress Note PATIENT NAME: Tevin Villagomez DATE OF SERVICE: November 24, 2023 TIME: 8:30 AM PATIENT IDENTITY VERIFICATION COMPLETED USING TWO (2) IDENTIFIERS: Name and Date of confirmed by patient verbally. FALL SCREENING: Has the patient had 2 falls in the last year or 1 fall with injury or currently using an Ambulatory Assistive Device (Walker, Cane, Wheelchair, Crutches, etc.)? No PATIENT GENDER DATA: Female. status: : No status: NO. PATIENT RELEVANT IMPLANT DATA REVIEWED: Not Applicable PATIENT PRESENTS WITH AN IMPLANTABLE OR ATTACHED CARPENTRY SPECIALIST: No RADIOLOGY DEPARTMENT: Ultrasound PERIPHERAL IV DATA: Not applicable SIGNED BY: RT Shannon(Shirley) November 24, 2023 8:30 AM [facility] 10-27-2023 Note IMPRESSION: INCOMPLE TE: NEEDS ADDITIONAL IMAGING EVALUATION The irregular equal density mass in the left breast is indeterminate. An ultrasound is recommended. LIMITED ULTRASOUND OF LEFT BREAST: 10/27/2023 RESULT: Comparison is made to exam dated: 09/29/2023 mammogram - [facility]. Real-time ultrasound of the left breast was performed. There is a 0.7 cm x 0.5 cm x 0.6 cm lobulated complex cyst in the left breast at 9 o'clock anterior depth. This lobulated complex cyst is anechoic and hypoechoic with posterior acoustic enhancement. This correlates with mammography findings. IMPRESSION: SUSPICIOUS OF MALIGNANCY The 0.7 cm x 0.5 cm x 0.6 cm lobulated complex cyst in the left breast is at a low suspicion for malignancy. An ultrasound guided biopsy is recommended. Evelyne Solis M.D., mc/lucina:10/27/2023 14:17:36 Multiple national specialty organizations have released breast cancer screening guidelines for women at average risk for developing breast cancer - guidelines that are based on both evidence and opinion, yet differ on when to start and how often to screen for breast cancer. With representation from Breast Imaging, Internal Medicine, Women's Health, Family Medicine, and Medical/Surgical Oncology, the [facility] has carefully reviewed the data and reached the following consensus: 1) All women should engage in shared decision-making with their providers to decide when to start and how often to screen; 2) All women should have the opportunity to start screening mammography at age 40; 3) For women ages 45-55, we recommend annual screening mammograms; 4) For women ages 55 and over, we support both the transition from an annual to a biennial interval if this aligns more with patient's values and preferences, or continuation with annual screening; 5) All women should discuss with their providers when to stop screening mammograms. Supplier Quality Engineer(s): Hans Casillas (Shirley)(M), [facility]; [employer], [facility] OVERALL STUDY BIRADS: 4a Suspicious abnormality - low suspicion for malignancy Personal Insurance Advisor: Lucina Transcribe Date/Time: Oct 27 2023 1:18P Dictated by : EVELYNE SOLIS MD This examination was interpreted and the report reviewed and electronically signed by: EVELYNE SOLIS MD on Oct 27 2023 2:17PM EST [facility] 10-27-2023 Note IMPRESSION: INCOMPLE TE: NEEDS ADDITIONAL IMAGING EVALUATION The irregular equal density mass in the left breast is indeterminate. An ultrasound is recommended. LIMITED ULTRASOUND OF LEFT BREAST: 10/27/2023 RESULT: Comparison is made to exam dated: 09/29/2023 mammogram - [facility]. Real-time ultrasound of the left breast was performed. There is a 0.7 cm x 0.5 cm x 0.6 cm lobulated complex cyst in the left breast at 9 o'clock anterior depth. This lobulated complex cyst is anechoic and hypoechoic with posterior acoustic enhancement. This correlates with mammography findings. IMPRESSION: SUSPICIOUS OF MALIGNANCY The 0.7 cm x 0.5 cm x 0.6 cm lobulated complex cyst in the left breast is at a low suspicion for malignancy. An ultrasound guided biopsy is recommended. Evelyne Solis M.D., mc/lucina:10/27/2023 14:17:36 Multiple national specialty organizations have released breast cancer screening guidelines for women at average risk for developing breast cancer - guidelines that are based on both evidence and opinion, yet differ on when to start and how often to screen for breast cancer. With representation from Breast Imaging, Internal Medicine, Women's Health, Family Medicine, and Medical/Surgical Oncology, the [facility] has carefully reviewed the data and reached the following consensus: 1) All women should engage in shared decision-making with their providers to decide when to start and how often to screen; 2) All women should have the opportunity to start screening mammography at age 40; 3) For women ages 45-55, we recommend annual screening mammograms; 4) For women ages 55 and over, we support both the transition from an annual to a biennial interval if this aligns more with patient's values and preferences, or continuation with annual screening; 5) All women should discuss with their providers when to stop screening mammograms. Supplier Quality Engineer(s): Hans Casillas (Shirley)(M), [facility]; [employer], [facility] OVERALL STUDY BIRADS: 4a Suspicious abnormality - low suspicion for malignancy Personal Insurance Advisor: Lucina Transcribe Date/Time: Oct 27 2023 1:18P Dictated by : EVELYNE SOLIS MD This examination was interpreted and the report reviewed and electronically signed by: EVELYNE SOLIS MD on Oct 27 2023 2:17PM [facility] 10-27-2023 History of Present illness Narrative Radiology Service Progress Note PATIENT NAME: Tevin Villagomez DATE OF SERVICE: October 27, 2023 TIME: 2:03 PM PATIENT IDENTITY VERIFICATION COMPLETED USING TWO (2) IDENTIFIERS: Name and Date of confirmed by patient verbally. FALL SCREENING: Has the patient had 2 falls in the last year or 1 fall with injury or currently using an Ambulatory Assistive Device (Walker, Cane, Wheelchair, Crutches, etc.)? No PATIENT GENDER DATA: Female. status: : No status: NO. PATIENT RELEVANT IMPLANT DATA REVIEWED: Yes PATIENT PRESENTS WITH AN IMPLANTABLE OR ATTACHED CARPENTRY SPECIALIST: No RADIOLOGY DEPARTMENT: Ultrasound PERIPHERAL IV DATA: Not applicable SIGNED BY: Ophelia Garcia RDMS, RVT October 27, 2023 2:03 PM documented in this encounter [facility] 10-27-2023 Note HNO ID: [id number] Author: OPHELIA GARCIA RT(R) Service: ? Author Type: Technologist Type: Progress Notes Filed: 10/27/2023 14:03 Note Text: Radiology Service Progress Note PATIENT NAME: Tevin Villagomez DATE OF SERVICE: October 27, 2023 TIME: 2:03 PM PATIENT IDENTITY VERIFICATION COMPLETED USING TWO (2) IDENTIFIERS: Name and Date of confirmed by patient verbally. FALL SCREENING: Has the patient had 2 falls in the last year or 1 fall with injury or currently using an Ambulatory Assistive Device (Walker, Cane, Wheelchair, Crutches, etc.)? No PATIENT GENDER DATA: Female. status: : No status: NO. PATIENT RELEVANT IMPLANT DATA REVIEWED: Yes PATIENT PRESENTS WITH AN IMPLANTABLE OR ATTACHED CARPENTRY SPECIALIST: No RADIOLOGY DEPARTMENT: Ultrasound PERIPHERAL IV DATA: Not applicable SIGNED BY: Ophelia Garcia RDMS, RVT October 27, 2023 2:03 PM [facility] 10-27-2023 History of Present illness Narrative Radiology Service Progress Note PATIENT NAME: Tevin Villagomez DATE OF SERVICE: October 27, 2023 TIME: 1:15 PM PATIENT IDENTITY VERIFICATION COMPLETED USING TWO (2) IDENTIFIERS: Name and Date of confirmed by patient verbally. FALL SCREENING: Has the patient had 2 falls in the last year or 1 fall with injury or currently using an Ambulatory Assistive Device (Walker, Cane, Wheelchair, Crutches, etc.)? No PATIENT GENDER DATA: Female. status: : No status: N/A PATIENT RELEVANT IMPLANT DATA REVIEWED: Not Applicable PATIENT PRESENTS WITH AN IMPLANTABLE OR ATTACHED CARPENTRY SPECIALIST: No RADIOLOGY DEPARTMENT: Mammography PERIPHERAL IV DATA: Not applicable SIGNED BY: JONY Casillas) October 27, 2023 1:15 PM documented in this encounter [facility] 10-27-2023 Note HNO ID: [id number] Author: ROJAS LICONA RT(R) Service: Radiology Author Type: Technologist Type: Progress Notes Filed: 10/27/2023 13:16 Note Text: Radiology Service Progress Note PATIENT NAME: Tevin Villagomez DATE OF SERVICE: October 27, 2023 TIME: 1:15 PM PATIENT IDENTITY VERIFICATION COMPLETED USING TWO (2) IDENTIFIERS: Name and Date of confirmed by patient verbally. FALL SCREENING: Has the patient had 2 falls in the last year or 1 fall with injury or currently using an Ambulatory Assistive Device (Walker, Cane, Wheelchair, Crutches, etc.)? No PATIENT GENDER DATA: Female. status: : No status: N/A PATIENT RELEVANT IMPLANT DATA REVIEWED: Not Applicable PATIENT PRESENTS WITH AN IMPLANTABLE OR ATTACHED CARPENTRY SPECIALIST: No RADIOLOGY DEPARTMENT: Mammography PERIPHERAL IV DATA: Not applicable SIGNED BY: RT Sonja(R) October 27, 2023 1:15 PM [facility] 09-30-2023 Miscellaneous Notes [address] [address] September 30, 2023 PID: [id number] Tevin Villagomez [address] [place] [address] Dear Ms. Villagomez, Your recent breast imaging exam on 09/29/2023 showed a possible finding that requires additional imaging studies for a complete evaluation. Most such findings are probably benign (not cancer). If you have a healthcare provider who ordered/prescribed your screening mammogram: Please call [phone] to schedule an appointment for your additional imaging (if you have not already done so). If you DO NOT have a healthcare provider (ie you did not have an order/prescription for your screening mammogram): Please call [phone] to schedule an appointment for your additional imaging (if you have not already done so). You must have an order / prescription from your physician when calling to schedule your appointment. If your order / prescription is not electronic, you must bring the hard copy with you on the day of your exam to avoid rescheduling your exam. Your imaging studies and reports are kept on file at [facility] as part of your permanent medical record, and are available for your continuing care. Thank you for allowing us to help in meeting your health care needs. Sincerely, Dr. Biswas Interpreting Radiologist [facility] (Additional imaging) documented in this encounter [facility] 09-29-2023 History of Present illness Narrative Radiology Service Progress Note PATIENT NAME: Tevin Villagomez DATE OF SERVICE: September 29, 2023 TIME: 9:26 AM PATIENT IDENTITY VERIFICATION COMPLETED USING TWO (2) IDENTIFIERS: Name and Date of confirmed by patient verbally. FALL SCREENING: Has the patient had 2 falls in the last year or 1 fall with injury or currently using an Ambulatory Assistive Device (Walker, Cane, Wheelchair, Crutches, etc.)? No PATIENT GENDER DATA: Female. status: : No status: N/A PATIENT RELEVANT IMPLANT DATA REVIEWED: Not Applicable PATIENT PRESENTS WITH AN IMPLANTABLE OR ATTACHED CARPENTRY SPECIALIST: No RADIOLOGY DEPARTMENT: Mammography PERIPHERAL IV DATA: Not applicable SIGNED BY: RT Casillas (R) September 29, 2023 9:26 AM documented in this encounter [facility] 09-29-2023 Note HNO ID: [id number] Author: ROJAS LICONA RT (R) Service: Radiology Author Type: Technologist Type: Progress Notes Filed: 09/29/2023 09:26 Note Text: Radiology Service Progress Note PATIENT NAME: Tevin Villagomez DATE OF SERVICE: September 29, 2023 TIME: 9:26 AM PATIENT IDENTITY VERIFICATION COMPLETED USING TWO (2) IDENTIFIERS: Name and Date of confirmed by patient verbally. FALL SCREENING: Has the patient had 2 falls in the last year or 1 fall with injury or currently using an Ambulatory Assistive Device (Walker, Cane, Wheelchair, Crutches, etc.)? No PATIENT GENDER DATA: Female. status: : No status: N/A PATIENT RELEVANT IMPLANT DATA REVIEWED: Not Applicable PATIENT PRESENTS WITH AN IMPLANTABLE OR ATTACHED CARPENTRY SPECIALIST: No RADIOLOGY DEPARTMENT: Mammography PERIPHERAL IV DATA: Not applicable SIGNED BY: JONY Casillas) September 29, 2023 9:26 AM [facility] 05-18-2023 History of Past i llness Narrative Problem Noted Date Diagnosed Date Resolved Date Hyponatremia 05/18/2023 05/20/2023 Leukocytosis 06/27/2022 07/02/2022 Nausea and vomiting 10/04/2016 10/05/19 17 Diarrhea 10/04/2016 10/04/2016 Abdominal pain 10/02/2016 10/04/2016 Migraine 04/23/2011 03/13/2015 Overview: 04/27/2011 PMH of Migraine headaches, 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 Stress hyperglycemia 04/23/2011 011 Tachycardia 04/23/2011 04/23/2011 DVT prophylaxis 04/23/2011 05/02/2011 Overview: 04/27/2011 The pt is on Heparin 5000 units SC daily and SCD for VTE prophylaxis. No signs or symptoms of DVT/PE. The patient is at moderate risk for VTE. Plan: - Continue ambulation . Discharge Planning 04/23/2011 1 Overview: 04/27/2011 Pt is and lives in [place], [place]. At this time, we anticipate that the patient will be discharged home with no homecare needs. Atelectasis 04/22/2011 04/27/2011 Overview: 04/27/2011 left basilar atelectasis on chest xray 04/24 Plan: - Respiratory therapy - Encourage coughing and deep breathing - Acapella - Aggressive pulmonary hygiene. - Encourage progressive ambulaton. - repeat CXR am . Postoperative pain 04/22/2011 1 Overview: 04/27/2011 Pt reports adequate pain control on current regimen Oxycodone and Motrin elixir. Currently has 3 abdominal [address] tubes in place. Plan: - oxycodone/motrin for homegoing . GERD (gastroesophageal reflux disease) 04/21/2011 04/27/2011 Overview: 04/27/2011 POD 4 PMH of hiatal Hernia. Presents with 2 year hx of GERD worsening over the past 6 months. 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 Her symptoms have progressed over the last two years and worse in the last six months. She now is having poor control with her medications. She has undergone a laparoscopic cholecystectomy with no relief of her symptoms. She was admitted 04/22 and underwent 1) Laparotomy 2) Excision of esophageal leiomyoma and repair of esophageal wall 3) Esophagogastroscopy 4) Aditi fundoplication Plan: - full anti reflux diet - up and ambulating - GERD (gastroesophageal reflux disease) 03/13/2015 Overview: s/p surgery now controlled with zantac Neck pain 05/21/2022 Overview: cervicle fusion 03/05 documented as of this encounter (statuses as of 09/30/2023) [facility]11-27-[facility] History of Past illness Narrative* Problem Noted Date Diagnosed Date Resolved Date Hyponatremia 05/18/2023 05/20/2023 Leukocytosis 06/27/2022 07/02/2022 Nausea and vomiting 10/04/2016 10/05/19 17 Diarrhea 10/04/2016 10/04/2016 Abdominal pain 10/02/2016 10/04/2016 Migraine 04/23/2011 03/13/2015 Overview: 04/27/2011 PMH of Migraine headaches, 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 Stress hyperglycemia 04/23/2011 011 Tachycardia 04/23/2011 04/23/2011 DVT prophylaxis 04/23/2011 05/02/2011 Overview: 04/27/2011 The pt is on Heparin 5000 units SC daily and SCD for VTE prophylaxis. No signs or symptoms of DVT/PE. The patient is at moderate risk for VTE. Plan: - Continue ambulation . Discharge Planning 04/23/2011 1 Overview: 04/27/2011 Pt is and lives in [place], [place]. At this time, we anticipate that the patient will be discharged home with no homecare needs. Atelectasis 04/22/2011 04/27/2011 Overview: 04/27/2011 left basilar atelectasis on chest xray 04/24 Plan: - Respiratory therapy - Encourage coughing and deep breathing - Acapella - Aggressive pulmonary hygiene. - Encourage progressive ambulaton. - repeat CXR am . Postoperative pain 04/22/2011 1 Overview: 04/27/2011 Pt reports adequate pain control on current regimen Oxycodone and Motrin elixir. Currently has 3 abdominal EL[address] tubes in place. Plan: - oxycodone/motrin for homegoing . GERD (gastroesophageal reflux disease) 04/21/2011 04/27/2011 Overview: 04/27/2011 POD 4 PMH of hiatal Hernia. Presents with 2 year hx of GERD worsening over the past 6 months. 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 Her symptoms have progressed over the last two years and worse in the last six months. She now is having poor control with her medications. She has undergone a laparoscopic cholecystectomy with no relief of her symptoms. She was admitted 04/22 and underwent 1) Laparotomy 2) Excision of esophageal leiomyoma and repair of esophageal wall 3) Esophagogastroscopy 4) Aditi fundoplication Plan: - full anti reflux diet - up and ambulating - GERD (gastroesophageal reflux disease) 03/13/2015 Overview: s/p surgery now controlled with zantac Neck pain 05/21/2022 Overview: cervicle fusion 03/05 documented as of this encounter (statuses as of 10/02/2023) [facility]07-20-2023 Miscellaneous Notes* Telephone Encounter - Alaina Ray RN - 01/08/2023 11:44 AM EDT Called patient and advised her that results of CT from 01/08/23 are negative- per Dr Perez. Patient verbalizes understanding and has no further questions or concerns at this time. Was advisedto call as needed for future problems. Encounter closed. [facility] History of Present illness Narrative* Christy Perez MD - 01/08/2023 9:54 AM EDT PROGRESS NOTES PATIENT NAME: Tevin Villagomez Assessment ASSESSMENT/PLAN: (R11.0) Nausea (primary encounter diagnosis) (Z98.890, Z87.19) Status post hernia repair Tevin presents in follow-up of her CT scan. The final reading is still pending. I do not see evidence for recurrent hernia. I do see some mild thickening of her gastric antrum and duodenum. I have recommended she follow-up with Dr. Ojeda. She can return to see me as needed. She is comfortablewith this plan. I will call her with the final CT scan results. No orders found for this visit on 01/08/23. SUBJECTIVE CHIEF COMPLAINT: Patient presents with: Follow Up: Review CT scan 01/06 INTERVAL HISTORY OF PRESENT ILLNESS: Tevin is a 67-year-old female who presents in follow-up ofher CT scan performed for epigastric pain and nausea. She is status post hernia repair with postop infection complication. This was performed in May. She continues to have nausea. It is slightlyimproved. She reports it to be random. Phenergan helps. She denies vomiting. She did try to take the Carafate but this caused worsening symptoms. She reports some epigastric muscle pain. She has seenDr. Ojeda in the past. HISTORIES: PAST MEDICAL HISTORY Diagnosis Date Acquired hypothyroidism Anxiety Cystourethrocele Dysphagia Fibromyalgia GERD (gastroesophageal reflux disease) s/p surgery now controlled with zantac, Dr. Ojeda Hiatal hernia Leiomyoma 04/22/2011 ESOPHAGUS, excised 04/22/2011 Levoscoliosis of thoracic spine Migraine Neck pain cervicle fusion 03/05 Osteoarthritis ? RA Dr Lindsey mtx and [place] Vaginal vault prolapse after hysterectomy PAST SURGICAL HISTORY Procedure Laterality Date ARTHROSCOPY KNEE DIAGNOSTIC W/WO SYNOVIAL BX SPX Right 2015 meniscus repair BLADDER SURGERY HX BREAST AUGMENTATION WITH IMPLANT 1991 Breast augmentation BUNIONECTOMY, LAPIDUS-TYPE Bilat. EGD 02/2016 Dr. Ojeda EGD - BALLOON DILATION, GUIDE 01/2022 ESOPHAGOGASTRODUODENOSCOPY TRANSORAL DIAGNOSTIC 11/[address] Ojeda EXT HYSTERECTOMY,W/PARTIAL VAGINECTO benign causes I & D ABSCESS, COMPLICATED N/A 06/28/2022 abdominal wound abscess KIDNEY STONE SURGERY HX Ureteral stents PALOMO W/O FACETEC FORAMOT/DSC 06/23 VRT SGM CRV 02/2014 cervicle fusion LAPAROSCOPY SURG CHOLECYSTECTOMY 04/2011 Cholecystectomy, lap MAMMOTOME BIOPSY RIGHT 2013 PAST SURGICAL HISTORY OF 2016 MOHS for basal cell on her back PAST SURGICAL HISTORY OF 03/2016 R TKA PAST SURGICAL HISTORY OF 06/28/2022 Incision and drainage of abdominal wound infection/abscess. Dr. Glynn REPAIR INCISIONAL HERNIA,REDUCIBLE 06/06/[address] Perez RPR PARAESOPH HIATAL HERNIA W/LAPT W/O MESH 04/22/2011 Laparotomy, Excision of esophageal leiomyoma and repair of esophageal wall, Esophagogastroscopy, Aditi fundoplication for Short esophagus, Type I hiatal hernia and Esophageal leiomyoma TONSILLECTOMY PRIMARY/SECONDARY <AGE 12 A CHILD Tonsillectomy ALLERGIES: Patient has no known allergies. MEDICATIONS: Current Outpatient Medications Medication Sig dicyclomine (BENTYL) 20 mg tablet Take 20 mg by mouth twice daily. sucralfate (CARAFATE) 1 gram tablet Take 1 g by mouth daily at bedtime. denosumab (PROLIA) 60 mg/mL 60 mg by Injection - FOR ORTHO USE ONLY route once every 6 months. meclizine (ANTIVERT) 12.5 mg tab Take 1 tablet by mouth twice daily as needed (dizziness). (Patient not taking: Reported on 12/17/2022) esomeprazole (NEXIUM) 40 mg capsule Take 40 mg by mouth DAILY (6 AM). (Patient not taking: Reportedon 12/17/2022) levothyroxine (SYNTHROID) 25 mcg tablet Take 25 mcg by mouth once daily. traMADol (ULTRAM) 50 mg tablet Take 50 mg by mouth every 8 hours as needed for pain. sertraline (ZOLOFT) 50 mg tablet Take 1.5 tablets by mouth twice daily. (Patient taking differently: Take 100 mg by mouth daily at bedtime.) SUMAtriptan (IMITREX) 100 mg tablet Take 1 tablet by mouth as needed. at onset of headache.May repeat after 2 hours. LORazepam (ATIVAN) 1 mg tablet Take 1 tablet by mouth every 8 hours. (Patient taking differently: Take 1 mg by mouth twice daily as needed for anxiety.) acetaminophen 325 mg-caffeine 40 mg-butalbital 50 mg (FIORICET) per tablet Take 1 tablet by mouth every 6 hours as needed. (Patient taking differently: Take 1 tablet by mouth every 6 hours as needed for headache or pain.) zolpidem (AMBIEN) 5 mg tablet Take 1 tablet by mouth at bedtime as needed. (Patient taking differently: Take 5 mg by mouth at bedtime as needed for sedation.) promethazine (PHENERGAN) 25 mg tablet Take 1 tablet by mouth every 4 hours as needed for Nausea/Vomiting. No current facility-administered medications for this visit. FAMILY HISTORY Problem Relation Age of Onset Cancer Mother Lung at 72 y/o Psychiatry Mother nervous breakdown, had shock therapy Cancer Father Lung at 76 y/o Psychiatry Father had nervous breakdown, had shock therapy other (no colon cancer) Father other (no breast cancer) Father other (no diabetes) Father other (no cad) Father Psychiatry Brother Social History Tobacco Use Smoking status: Never Smokeless tobacco: Never Vaping Use Vaping Use: Never used Substance Use Topics Alcohol use: Yes Comment: rare 1x/year Drug use: No OBJECTIVE PHYSICAL EXAM: There were no vitals taken for this visit. Abd soft, epigastric scarring, no hernia DATA: Diagnostic tests reviewed for today's visit: CT reviewed with patient. Final reading pending. Christy Perez MD documented [facility] Miscellaneous Notes* [facility] - Kanwal Matos CT - 01/06/2023 4:00 PM EDT Radiology Service Progress Note PATIENT NAME: Tevin Villagomez DATE OF SERVICE: January 06, 2023 TIME: 3:46 PM PATIENT IDENTITY VERIFICATION COMPLETED USING TWO (2) IDENTIFIERS: Name and Date of confirmedby patient verbally and Name and Date of confirmed by identification band. FALL SCREENING: Has the patient had 2 falls in the last year or 1 fall with injury or currently using an Ambulatory Assistive Device (Walker, Cane, Wheelchair, Crutches, etc.)? No PATIENT GENDER DATA: Female. status: : No status: NO. PATIENT RELEVANT IMPLANT DATA REVIEWED: Not Applicable RADIOLOGY DEPARTMENT: CT; Exam(s) Completed: Abdomen/Pelvis PERIPHERAL IV DATA: Site assessment: Clean,Dry and Intact, Site disposition Discontinued SIGNED BY: COLUMBA Marin January 06, 2023 3:46 PM documented in this encounterAk[facility] Nurse Note* Chela Pike RN - 01/06/2023 4:00 PM EDT Radiology Service Progress Note DATE OF SERVICE: January 06, 2023 TIME: 3:11 PM PATIENT WEIGHT: 150 LBS PATIENT IDENTITY VERIFICATION COMPLETED USING TWO (2) STANDARD IDENTIFIERS: Name and Date of confirmed by patient verbally. FALL SCREENING: Has the patient had 2 falls in the last year or 1 fall with injury or currently using an Ambulatory Assistive Device (Walker, Cane, Wheelchair, Crutches, etc.)? No PATIENT GENDER DATA: Female. status: : No status: NO. ALLERGIES: Reviewed and unchanged CONTRAST ALLERGY: No EXAM: CT -CONTRAST INDUCED NEPHROPATHY RISK FACTORS: Patient age > 60 years CREATININE: Creatinine Date Value Ref Range Status 12/25/2022 0.98 (H) 0.58 - 0.96 mg/dL Final 07/21/2022 0.99 (H) 0.58 - 0.96 mg/dL Final 06/30/2022 0.82 0.58 - 0.96 mg/dL Final Estimated Glomerular Filtration Rate Date Value Ref Range Status 12/25/2022 63 >=60 mL/min/1.73m Final Comment: Estimated Glomerular Filtration Rate (eGFR) is calculated using the 2020 CKD-EPI creatinine equation. This equation utilizes serum creatinine, sex, and age as parameters. The creatinine assay has traceable calibration to isotope dilution- mass spectrometry. Refer to KDIGO guidelines for clinical interpretation. In patients with unstable renal function, e.g. those with acute kidney injury, the eGFRmay not accurately reflect actual GFR. eGFR- Date Value Ref Range Status 08/10/2021 >60 Final P.O.C.T. RESULTS: POC done: Yes, See Lab Tab January 06, 2023 TREATMENT: N/A IV SITE: Ambulatory: A peripheral IV was started in the Right antecubital site with a Angio cath: 22 gauge. IV SITE APPEARANCE: Clean,Dry and Intact SIGNATURE: Chela Pike RN PATIENT NAME: Tevin Villagomez DATE: January 06, 2023 TIME: 3:11 PM documented in this encounterAkron [facility] Miscellaneous Notes* Telephone Encounter - Lourdes Centeno - 12/08/2022 11:27 AM EDT Tevin calls in and states that she has returning pain and nausea. Similar to how she felt priorto her surgery with Dr. Perez in May. She denies fever. Some diarrhea. She would like to be seen by Dr. Perez. Appointment made for 12/17 in [place] Instructed patient to visit the ED with any fevers or increased pain. She verbalized her understanding. documented in this encounterAkron [facility]02-23-[facility]23 Miscellaneous Notes* [facility] Agency DC - Tayla Whitman RN - 08/14/2022 10:02 AM EST SITUATION: Snf agency discharge visit completed today. spouse also present during today's visit. patient reports the following: Allergies--reviewed Medications--full medication reconciliation completed and reviewed current medications Falls--None BACKGROUND: INCISION AND DRAINAGE ABSCESS ABDOMEN INCISION AND DRAINAGE ABSCESS ABDOMEN SIMPLE OR SINGLE 06/28/22 Reason for Home Care: wound care SN greeted at door by patient no DME and demonstrates stable gait. Patient appears in no acute distress. Patient/CG concerns verbalized today: how to return wound VAC Vitals (see flow sheet for details): stable SN findings today: SN assisted pt in putting VAC in envelope to mail back via [employer] Pt saw Danielle Stewart CNP yestereay and was instructed only to apply foam drsg with adhesive border and change qd and prn and gently wash with soap/water pat dry, pt independent Wound 1 cm wide x .2 wide x .1 deep 100% beefy red Pt taking meds as prescribed Pt requesting being discharged from [facility] today See intervention summary for education details and any skills performed. Patient encouraged to take all medication as ordered, eat a well-balanced diet and follow up with all physician appointments. NOMNC: patient requested discharge today Discharged due to no further SN skilled need. Patient discharged from Home Care to: self-care Patient to follow up with Cande PIKE for additional medical questions/concerns. documented in this encounterAkron [facility]02-16-[facility]23 Miscellaneous Notes* SN Routine - Meagan Christopher RN - 08/07/2022 10:55 AM EST SITUATION: Snf routine visit completed today. only patient also present during today's visit. patient reports the following: Allergies--reviewed Medications--reviewed current medications Falls--None DME-Reviewed and added to chart BACKGROUND: Reason for Home Care: wound care ASSESSMENT: SN greeted at door by patient no DME and demonstrates stable gait. Patient appears in no acute distress. Patient/CG concerns verbalized today: none noted Vitals (see flow sheet for details): stable SN findings today: pt pleasant. pt has f/u appt with surgeon next Thursday. SN performed wound care, no s/sx of infection noted, wound appears to be healing well. pt denies issues doing dressing changes. COVID symptoms have resolved. SN ordered NS for pt from [employer]. pt denies any concerns for SN, assessment stable. See intervention summary for education details. Patient demonstrated a need for further skilled SN services for wound/skin care. Current Discharge plan: self-care RECOMMENDATION: Next visit to focus on (be specific): see how pt's f/u visit with her surgeon went documented in this encounterAkron [facility]02-10-2023 Miscellaneous Notes* SN Routine - Andie Anderson LPN - 08/01/2022 11:30 AM EST SITUATION: Snf routine visit completed today. only patient also present during today's visit. patient reports the following: Allergies--reviewed Medications--reviewed current medications Falls--None DME-NONE BACKGROUND: Reason for Home Care: wound care ASSESSMENT: SN greeted at door by patient no DME and demonstrates stable gait. Patient appears in no acute distress. Patient/CG concerns verbalized today: none Vitals (see flow sheet for details): stable SN findings today: Pt A&OX 4 and pleasant in conversation. Pt reports she was seen by surgeon 07/29 and wound vac was discontinued and Pt is now covering wound with a dry dressing. Pt states she iseager to get back to work.Pt denies any pain. Pt denies any issues with GI/. Wound care provided per plan of care. See intervention summary for education details. Patient demonstrated a need for further skilled SN services for medication education, wound/skin care, safety and infection control/prevention. Current Discharge plan: self-care and family support RECOMMENDATION: Next visit to focus on (be specific): SN t documented in this encounterAkron [facility]02-08-[facility]23 History of Present illness Narrative* Christy Perez MD - 07/30/2022 2:01 PM EST HPI: Tevin presents in follow-up of her abdominal wound. She has been off the wound VAC for thepast week. EXAM: There were no vitals taken for this visit. Her wound is healing and beautifully. The hypertrophic granulation tissue was cauterized with silver nitrate today. PATHOLOGY: None ASSESSMENT: (T14.8XXA, L08.9) Infected wound (primary encounter diagnosis) (Z98.890, Z87.19) S/P laparoscopic hernia repair Tevin presents in follow-up of her abdominal wound. She has had excellent improvement without the wound VAC. She will start packing the wound with dry gauze daily. She will complete her antibiotics. She will return to see me in 2 weeks. No orders found for this visit on 07/29/22. Christy Perez MD documented in this encounterAkron [facility]02-01-[facility]23 History of Present illness Narrative* Christy Perez MD - 07/23/2022 10:21 AM EST HPI: Rimma presents in follow-up of her abdominal wound infection. She is feeling better. EXAM: There were no vitals taken for this visit. The wound VAC was removed. She has excellent granulation tissue present. The wound was packed with dry gauze. PATHOLOGY: None ASSESSMENT: (T14.8XXA, L08.9) Infected wound (primary encounter diagnosis) (Z98.890, Z87.19) S/P laparoscopic hernia repair Rimma presents in follow-up of her abdominal wound infection status post laparoscopic incisional hernia repair with mesh. Her CT scan shows resolution of the abscess. We will discontinue the wound VAC today. She will start daily dressing changes. I will see her next Thursday. She will complete the antibiotics (2 more weeks). She is comfortable with this plan. No orders found for this visit on 07/23/22. Christy Perez MD documented in this encounterAkron [facility]01-30-2023 Miscellaneous Notes* SN Routine - Shavonne Thorpe RN - 07/21/2022 1:45 PM EST SITUATION: Snf routine visit completed today. only patient also present during today's visit. patient reports the following: Allergies--reviewed Medications--reviewed current medications Falls--None DME-Reviewed and added to chart BACKGROUND: Reason for Home Care: abdominal wound ASSESSMENT: SN greeted at door by patient no DME and demonstrates stable gait. Patient appears in no acute distress. Patient/CG concerns verbalized today: none voiced Vitals (see flow sheet for details): stable SN findings today: SN completed Wound Vac/wound care to mid abdominal wound per orders. Patient tolerated well. Wound bed is beefy, red, pink moist tissue, granulation buds noted. Periwound skin intact. Patient states she has minimal pain to this area See intervention summary for education details. Patient demonstrated a need for further skilled SN services for wound/skin care. Current Discharge plan: family support RECOMMENDATION: Next visit to focus on (be specific): wound care documented in this encounterAkron [facility]01-27-2023 Miscellaneous Notes* SN Routine - Shavonne Thorpe RN - 07/18/2022 1:40 PM EST SITUATION: Snf routine visit completed today. only patient also present during today's visit. patient reports the following: Allergies--reviewed Medications--reviewed current medications Falls--None DME-Reviewed and added to chart BACKGROUND: Reason for Home Care: abdominal wall abscess at site of surgical wound ASSESSMENT: SN greeted at door by patient no DME and demonstrates stable gait. Patient appears in no acute distress. Patient/CG concerns verbalized today: none voiced Vitals (see flow sheet for details): stable SN findings today: SN changed Wound Vac to abdominal wound. Patient tolerated well. Periwound skin intact. Wound bed pink, red, moist tissue. SN changed vac cannister today, had small amount serosanguinous drainage, no odor noted. SN reinforced to patient to increase foods high in vitamin C & protein in her diet, she verbalized understanding See intervention summary for education details. Patient demonstrated a need for further skilled SN services for wound/skin care. Current Discharge plan: family support RECOMMENDATION: Next visit to focus on (be specific): wound care documented in this encounterAk[facility] Miscellaneous Notes* SN Routine - Vesna Lester RN - 07/16/2022 9:14 AM EST SITUATION: Snf routine visit completed today. only patient also present during today's visit. patient reports the following: Allergies--reviewed Medications--reviewed current medications Falls--None DME-Reviewed and added to chart BACKGROUND: Reason for Home Care: Wound care, infection education, disease management, medication education andsafety education. ASSESSMENT: SN greeted at door by patient no DME and demonstrates stable gait. Patient appears in no acute distress. Patient/CG concerns verbalized today: none Vitals (see flow sheet for details): stable SN findings today: Patient pleasant and cooperative with SN assessment. Patient reports a good appetite and hydration. Patient states she has increased her protein in her diet. VSS, LCTA, BSx4, HRR. Wound vac changed per POC patient tolerated well. Suctioning maintained at 125mmHg. No S&S of infection noted. Patient verbalizes understanding of wet to dry dressing if wound vac not maintaining adequate suctioning and how to contact [facility]. No other questions or concerns at this time. See intervention summary for education details. Patient demonstrated a need for further skilled SN services for chronic disease management & education, medication education, wound/skin care and safety. Current Discharge plan: self-care and family support RECOMMENDATION: Next visit to focus on (be specific): wound vac documented in this encounterAk[facility] Miscellaneous Notes* SN Routine - Vesna Lester RN - 07/14/2022 12:09 PM EST SITUATION: Snf routine visit completed today. spouse also present during today's visit. patient reports the following: Allergies--reviewed Medications--reviewed current medications Falls--None DME-Reviewed and added to chart BACKGROUND: Reason for Home Care: Wound care, infection education, disease management, medication education andsafety education. ASSESSMENT: SN greeted at door by caregiver. Upon entrance patient found in chair Patient appears in no acute distress. Patient/CG concerns verbalized today: none Vitals (see flow sheet for details): stable SN findings today: Patient pleasant and cooperative with SN assessment. Wound care performed per POC and wound vac suctioning maintained at 125mmHg, patient toelrated well. No S&S of infection noted. Patient verbalizes understanding of wet to dry dressing if wound vac malfunctions and supplies in home. SN educated patient to increase protien in diet. Patient denies any urinary or bowel issues. No other questions or concerns at this time. See intervention summary for education details. Patient demonstrated a need for further skilled SN services for chronic disease management & education, medication education, wound/skin care and safety. Current Discharge plan: self-care and family support RECOMMENDATION: Next visit to focus on (be specific): wound vac documented in this encounterAk[facility] Miscellaneous Notes* SN Routine - Eliza Adams LPN - 07/12/2022 5:09 PM EST SITUATION: Snf routine visit completed today. spouse also present during today's visit. patient reports the following: Allergies--reviewed Medications--reviewed current medications Falls--None DME-Reviewed and added to chart BACKGROUND: following a procedure, deep incisional surgical site, initial encounter Reason for Home Care: Negative Pressure Wound Therapy ASSESSMENT: SN greeted at door by patient no DME and demonstrates stable gait. Patient appears in no acute distress. Patient/CG concerns verbalized today: No acute concens Vitals (see flow sheet for details): stable SN findings today: Patient greeted nurse at the door, pleasant and cooperative with nursing visit. Wound care with mechanical debridement using normal saline and guaze complete - Negative pressure wound therapy achieved at 125mm/hg with no s/s of distress noted. Discussed hydration, nutritional needs, safety and medications with paient. Patient vetbalized understanding and compliance at this time. Patient tolerated all care with no s/s of distress noted. See intervention summary for education details. Patient demonstrated a need for further skilled SN services for chronic disease management & education, medication education, wound/skin care, safety and infection control/prevention. Current Discharge plan: self-care and family support Negative Pressure Wound Therapy documented in this encounterAk[facility]01[facility] Miscellaneous Notes* SN Routine - Kiya Acevedo LPN - 07/10/2022 11:00 AM EST SITUATION: Snf routine visit completed today. only patient also present during today's visit. patient reports the following: Allergies--reviewed Medications--reviewed current medications Falls--None DME-NONE BACKGROUND: Reason for Home Care: Wound care, infection education, disease management, medication education andsafety education. ASSESSMENT: SN greeted at door by patient no DME and demonstrates stable gait. Patient appears in no acute distress. Patient/CG concerns verbalized today: No questions or concerns stated by patient at this time. Vitals (see flow sheet for details): stable SN findings today: Patient alert, oriented and pleasant in conversation with this nurse. Patient complains of frequent headaches, realive themselves. Patient states abdomen pain 1/10, uses medicationand reposition to manage. No complains of dizziness, chest pain or shortness of breath at this time. No edema noted on assessment. No bruising or bleeding noted on assessment. Patient having regular bowel movemements. Patient states eats about 2 meals daily, tries to incorporate more protein. Patient states tries to intake one boost/ensure supplement daily. Patient states needs to drink more water and is trying. Wound vac dressing currently in place, this nurse removed. Wound measurments obtained. No s/s of infection noted. Patient continues on atb therapy with no s/s of adverse reaction. Newwound vac dressing applied, adaptic and two black foams used. Patient tolerated procedure well. Seal checked at 125mmhg, no leaks. See intervention summary for education details. Patient demonstrated a need for further skilled SN services for chronic disease management & education, medication education, wound/skin care, safety and infection control/prevention. Current Discharge plan: self-care RECOMMENDATION: Next visit to focus on (be specific): Wound care, infection education, disease management, medication education and safety education. documented in this encounterAkron [facility]01-19-2023 History of Present illness Narrative* Christy Perez MD - 07/10/2022 10:45 AM EST HPI: Rimma presents s/p drainage of postop abdominal wall abscess. Wound vac in place. EXAM: There were no vitals taken for this visit. Vac with minimal drainage Abd soft, no induration or erythema PATHOLOGY: none ASSESSMENT: (T81.43XA) Postprocedural intraabdominal abscess (primary encounter diagnosis) (Z01.812) Encounter for preprocedural laboratory examination (Z98.890, Z87.19) S/P hernia repair Rimma presents s/p drainage of postop abdominal wall abscess after hernia repair with mesh. She istolerating the wound vac. She will complete 4 weeks of Augmentin. I have ordered another CT scan alla done the week of 07/21. She will follow up with me after. Office Visit on 07/09/22 CT ABDOMEN W IVCON CBC + DIFF CREATININE BLD iv contrast (will be provided with radiology test) Christy Perez MD documented in this encounterAkron [facility]01-18-2023 Instructions* Patient Instructions* Christy Perez MD - 07/09/2022 4:16 PM EST Obtain the labwork and CT scan the week of 07/21. Call to schedule the CT. documented in this encounterAkron [facility]01-13-2023 Miscellaneous Notes* SN SOC - Nafisa Alexandra RN - 07/04/2022 11:28 AM EST SITUATION: Snf SOC visit completed today. granddaughter also present during today's visit. patient reports the following: Allergies--reviewed Medications--full medication reconciliation completed Falls--None DME-Reviewed and added to chart BACKGROUND: Discharged/Referral from acute [facility] on 07/02/22 following treatment for Abdominal Wall Abscess At Site of Surgical Wound . Pertinent referral information or other diagnoses that may affect plan of care: I&D of abdomen,GERD, OA ASSESSMENT: SN greeted at door by patient no DME and demonstrates stable gait. Patient appears in no acute distress. Patient lives at home with spouse. Home environment: clean, uncluttered and has pets: multiple dogs. SOC booklet reviewed & completed with patient and consent obtained for Home Care services. Patient/CG concerns verbalized today: no concerns noted Vitals (see flow sheet for details): stable SN findings today: Patient pleasent and cooperative with visit. HRR, LSCTA and BSx4. Patient reports that she has pain that is manageable. Medication reconcilation completed, no severe interactions noted. Patient requires set up help with some ADLs. Wound to abdomen noted, no s/s of infection noted, wound care completed, tolerated well, wound vac seal check completed, wound vac functioning properly. Education provided to patient and granddaughter on wound vac function, how to change canister, what to do if leak occurs and when to remove and apply wet to dry dressing. Wet to dry dressing supplies in home. See intervention summary for education details and skills performed. Plan of care and visit frequency established with patient and plan of care agreed upon. Patient demonstrated a need for further skilled SN services for chronic disease management & education, wound/skin care, safety and infection control/prevention. RECOMMENDATION: Visit Frequency: 1w1, 3w8, 1w1 Need for additional services: Patient agreeable to N/A referrals. Patient declined N/A referrals. Additional concerns to be followed up on: NONE Next visit to focus on (be specific): Continue with SNV for disease management, CP assessment and wound care documented in this encounterAkron [facility]01-12-2023 Miscellaneous Notes* Telephone Encounter - Haydee Hathaway RN - 07/03/2022 3:21 PM EST Patient called the wound center about wound care instructions after being discharged from [facility] due to a wound infection. The pt had received a wound vac and needed guidance on how to contact her [facility] to set up an appointment for application. This RN returned the patient's call and explained that because she was not a pt of the wound center, she would need to follow-up with the physicianthat saw her during her hospital stay. This RN gave her the phone number of natalie Stewart PA-C. The pt stated she would attempt to call. Haydee Hathaway RN documented in this encounterAkron [facility]01-11-2023 Miscellaneous Notes* Telephone Encounter - Lori Yap LPN - 07/02/2022 1:23 PM EST Welcome Home Call: a. Date and Time: 1:23 PM 07/02/2022 b. Contact name/relationship: Tevin c. Have you been active with any Home Care company in the last 60 days(such as help with bathing, filling medications, checking your blood pressure) ? No. d. Was patient given Flu shot this Season (After Feb,): No: e. [facility] be providing [facility] care, are you agreeable to starting these services? yes f. Do you have any upcoming appointments in the next few days, or restrictions to your schedule? no g. Caregiver: No h. Confirmed Visited Location and preferred #: yes Please keep our your medications both over the counter and prescribed out for the home care to review, your hospital discharge instructions and write down any questions you might have. In order to maintain a safe environment for our caregivers, [facility] requires anyanimals or weapons present in the home be located in a secured location. Our clinicians will call you the night before or the morning of the appointment. Their # may come up restricted but they'll leave a VM for you. In case you have any questions or concerns in the meantime, our # is [phone], option 5 Thank you for your time and have a great day. 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 Stress hyperglycemia 04/23/2011 04/23/2011 Tachycardia 04/23/2011 04/23/2011 DVT prophylaxis 04/23/2011 05/02/2011 Overview: 04/27/2011 The pt is on Heparin 5000 units SC daily and SCD for VTE prophylaxis. No signs or symptoms of DVT/PE. The patient is at moderate risk for VTE. Plan: - Continue ambulation . Discharge Planning 04/23/2011 05/02/2011 Overview: 04/27/2011 Pt is and lives in [place], [place]. At this time, we anticipate that the patient will be discharged home with no homecare needs. Atelectasis 04/22/2011 04/27/2011 Overview: 04/27/2011 left basilar atelectasis on chest xray 04/24 Plan: - Respiratory therapy - Encourage coughing and deep breathing - Acapella - Aggressive pulmonary hygiene. - Encourage progressive ambulaton. - repeat CXR am . Postoperative pain 04/22/2011 05/02/2011 Overview: 04/27/2011 Pt reports adequate pain control on current regimen Oxycodone and Motrin elixir. Currently has 3 abdominal [address] tubes in place. Plan: - oxycodone/motrin for homegoing . GERD (gastroesophageal reflux disease) 1 04/27/2011 Overview: 04/27/2011 POD 4 PMH of hiatal Hernia. Presents with 2 year hx of GERD worsening over the past 6 months. 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 Her symptoms have progressed over the last two years and worse in the last six months. She now is having poor control with her medications. She has undergone a laparoscopic cholecystectomy with no relief of her symptoms. She was admitted 04/22 and underwent 1) Laparotomy 2) Excision of esophageal leiomyoma and repair of esophageal wall 3) Esophagogastroscopy 4) Aditi fundoplication Plan: - full anti reflux diet - up and ambulating - GERD (gastroesophageal reflux disease) 03/13/2015 Overview: s/p surgery now controlled with zantac Neck pain 05/21/2022 Overview: cervicle fusion 03/05 documented as of this encounter (statuses as of 07/02/2022) [facility] History of Past illness Narrative* Problem Noted Date Resolved Date Leukocytosis 06/27/2022 07/02/2022 Nausea and vomiting 10/04/2016 10/04/2016 Diarrhea 10/04/2016 10/04/2016 Abdominal pain 10/02/2016 10/04/2016 Migraine 04/23/2011 03/13/2015 Overview: 04/27/2011 PMH of Migraine headaches, 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 Stress hyperglycemia 04/23/2011 04/23/2011 Tachycardia 04/23/2011 04/23/2011 DVT prophylaxis 04/23/2011 05/02/2011 Overview: 04/27/2011 The pt is on Heparin 5000 units SC daily and SCD for VTE prophylaxis. No signs or symptoms of DVT/PE. The patient is at moderate risk for VTE. Plan: - Continue ambulation . Discharge Planning 04/23/2011 05/02/2011 Overview: 04/27/2011 Pt is and lives in [place], [place]. At this time, we anticipate that the patient will be discharged home with no homecare needs. Atelectasis 04/22/2011 04/27/2011 Overview: 04/27/2011 left basilar atelectasis on chest xray 04/24 Plan: - Respiratory therapy - Encourage coughing and deep breathing - Acapella - Aggressive pulmonary hygiene. - Encourage progressive ambulaton. - repeat CXR am . Postoperative pain 04/22/2011 05/02/2011 Overview: 04/27/2011 Pt reports adequate pain control on current regimen Oxycodone and Motrin elixir. Currently has 3 abdominal [address] tubes in place. Plan: - oxycodone/motrin for homegoing . GERD (gastroesophageal reflux disease) 1 04/27/2011 Overview: 04/27/2011 POD 4 PMH of hiatal Hernia. Presents with 2 year hx of GERD worsening over the past 6 months. 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 Her symptoms have progressed over the last two years and worse in the last six months. She now is having poor control with her medications. She has undergone a laparoscopic cholecystectomy with no relief of her symptoms. She was admitted 04/22 and underwent 1) Laparotomy 2) Excision of esophageal leiomyoma and repair of esophageal wall 3) Esophagogastroscopy 4) Aditi fundoplication Plan: - full anti reflux diet - up and ambulating - GERD (gastroesophageal reflux disease) 03/13/2015 Overview: s/p surgery now controlled with zantac Neck pain 05/21/2022 Overview: cervicle fusion 03/05 documented as of this encounter (statuses as of 07/03/2022) [facility] of Past illness Narrative* Problem Noted Date Resolved Date Leukocytosis 06/27/2022 07/02/2022 Nausea and vomiting 10/04/2016 10/04/2016 Diarrhea 10/04/2016 10/04/2016 Abdominal pain 10/02/2016 10/04/2016 Migraine 04/23/2011 03/13/2015 Overview: 04/27/2011 PMH of Migraine headaches, 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 Stress hyperglycemia 04/23/2011 04/23/2011 Tachycardia 04/23/2011 04/23/2011 DVT prophylaxis 04/23/2011 05/02/2011 Overview: 04/27/2011 The pt is on Heparin 5000 units SC daily and SCD for VTE prophylaxis. No signs or symptoms of DVT/PE. The patient is at moderate risk for VTE. Plan: - Continue ambulation . Discharge Planning 04/23/2011 05/02/2011 Overview: 04/27/2011 Pt is and lives in [place], [place]. At this time, we anticipate that the patient will be discharged home with no homecare needs. Atelectasis 04/22/2011 04/27/2011 Overview: 04/27/2011 left basilar atelectasis on chest xray 04/24 Plan: - Respiratory therapy - Encourage coughing and deep breathing - Acapella - Aggressive pulmonary hygiene. - Encourage progressive ambulaton. - repeat CXR am . Postoperative pain 04/22/2011 05/02/2011 Overview: 04/27/2011 Pt reports adequate pain control on current regimen Oxycodone and Motrin elixir. Currently has 3 abdominal [address] tubes in place. Plan: - oxycodone/motrin for homegoing . GERD (gastroesophageal reflux disease) 1 04/27/2011 Overview: 04/27/2011 POD 4 PMH of hiatal Hernia. Presents with 2 year hx of GERD worsening over the past 6 months. 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 Her symptoms have progressed over the last two years and worse in the last six months. She now is having poor control with her medications. She has undergone a laparoscopic cholecystectomy with no relief of her symptoms. She was admitted 04/22 and underwent 1) Laparotomy 2) Excision of esophageal leiomyoma and repair of esophageal wall 3) Esophagogastroscopy 4) Aditi fundoplication Plan: - full anti reflux diet - up and ambulating - GERD (gastroesophageal reflux disease) 03/13/2015 Overview: s/p surgery now controlled with zantac Neck pain 05/21/2022 Overview: cervicle fusion 03/05 documented as of this encounter (statuses as of 07/05/2022) [facility] of Past illness Narrative* Problem Noted Date Resolved Date Leukocytosis 06/27/2022 07/02/2022 Nausea and vomiting 10/04/2016 10/04/2016 Diarrhea 10/04/2016 10/04/2016 Abdominal pain 10/02/2016 10/04/2016 Migraine 04/23/2011 03/13/2015 Overview: 04/27/2011 PMH of Migraine headaches, 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 Stress hyperglycemia 04/23/2011 04/23/2011 Tachycardia 04/23/2011 04/23/2011 DVT prophylaxis 04/23/2011 05/02/2011 Overview: 04/27/2011 The pt is on Heparin 5000 units SC daily and SCD for VTE prophylaxis. No signs or symptoms of DVT/PE. The patient is at moderate risk for VTE. Plan: - Continue ambulation . Discharge Planning 04/23/2011 05/02/2011 Overview: 04/27/2011 Pt is and lives in [place], [place]. At this time, we anticipate that the patient will be discharged home with no homecare needs. Atelectasis 04/22/2011 04/27/2011 Overview: 04/27/2011 left basilar atelectasis on chest xray 04/24 Plan: - Respiratory therapy - Encourage coughing and deep breathing - Acapella - Aggressive pulmonary hygiene. - Encourage progressive ambulaton. - repeat CXR am . Postoperative pain 04/22/2011 05/02/2011 Overview: 04/27/2011 Pt reports adequate pain control on current regimen Oxycodone and Motrin elixir. Currently has 3 abdominal [address] tubes in place. Plan: - oxycodone/motrin for homegoing . GERD (gastroesophageal reflux disease) 1 04/27/2011 Overview: 04/27/2011 POD 4 PMH of hiatal Hernia. Presents with 2 year hx of GERD worsening over the past 6 months. 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 Her symptoms have progressed over the last two years and worse in the last six months. She now is having poor control with her medications. She has undergone a laparoscopic cholecystectomy with no relief of her symptoms. She was admitted 04/22 and underwent 1) Laparotomy 2) Excision of esophageal leiomyoma and repair of esophageal wall 3) Esophagogastroscopy 4) Aditi fundoplication Plan: - full anti reflux diet - up and ambulating - GERD (gastroesophageal reflux disease) 03/13/2015 Overview: s/p surgery now controlled with zantac Neck pain 05/21/2022 Overview: cervicle fusion 03/05 documented as of this encounter (statuses as of 07/10/2022) [facility] of Past illness Narrative* Problem Noted Date Resolved Date Leukocytosis 06/27/2022 07/02/2022 Nausea and vomiting 10/04/2016 10/04/2016 Diarrhea 10/04/2016 10/04/2016 Abdominal pain 10/02/2016 10/04/2016 Migraine 04/23/2011 03/13/2015 Overview: 04/27/2011 PMH of Migraine headaches, 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 Stress hyperglycemia 04/23/2011 04/23/2011 Tachycardia 04/23/2011 04/23/2011 DVT prophylaxis 04/23/2011 05/02/2011 Overview: 04/27/2011 The pt is on Heparin 5000 units SC daily and SCD for VTE prophylaxis. No signs or symptoms of DVT/PE. The patient is at moderate risk for VTE. Plan: - Continue ambulation . Discharge Planning 04/23/2011 05/02/2011 Overview: 04/27/2011 Pt is and lives in [place], [place]. At this time, we anticipate that the patient will be discharged home with no homecare needs. Atelectasis 04/22/2011 04/27/2011 Overview: 04/27/2011 left basilar atelectasis on chest xray 04/24 Plan: - Respiratory therapy - Encourage coughing and deep breathing - Acapella - Aggressive pulmonary hygiene. - Encourage progressive ambulaton. - repeat CXR am . Postoperative pain 04/22/2011 05/02/2011 Overview: 04/27/2011 Pt reports adequate pain control on current regimen Oxycodone and Motrin elixir. Currently has 3 abdominal [address] tubes in place. Plan: - oxycodone/motrin for homegoing . GERD (gastroesophageal reflux disease) 1 04/27/2011 Overview: 04/27/2011 POD 4 PMH of hiatal Hernia. Presents with 2 year hx of GERD worsening over the past 6 months. 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 Her symptoms have progressed over the last two years and worse in the last six months. She now is having poor control with her medications. She has undergone a laparoscopic cholecystectomy with no relief of her symptoms. She was admitted 04/22 and underwent 1) Laparotomy 2) Excision of esophageal leiomyoma and repair of esophageal wall 3) Esophagogastroscopy 4) Aditi fundoplication Plan: - full anti reflux diet - up and ambulating - GERD (gastroesophageal reflux disease) 03/13/2015 Overview: s/p surgery now controlled with zantac Neck pain 05/21/2022 Overview: cervicle fusion 03/05 documented as of this encounter (statuses as of 07/11/2022) [facility] History of Past illness Narrative* Problem Noted Date Resolved Date Leukocytosis 06/27/2022 07/02/2022 Nausea and vomiting 10/04/2016 10/04/2016 Diarrhea 10/04/2016 10/04/2016 Abdominal pain 10/02/2016 10/04/2016 Migraine 04/23/2011 03/13/2015 Overview: 04/27/2011 PMH of Migraine headaches, 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 Stress hyperglycemia 04/23/2011 04/23/2011 Tachycardia 04/23/2011 04/23/2011 DVT prophylaxis 04/23/2011 05/02/2011 Overview: 04/27/2011 The pt is on Heparin 5000 units SC daily and SCD for VTE prophylaxis. No signs or symptoms of DVT/PE. The patient is at moderate risk for VTE. Plan: - Continue ambulation . Discharge Planning 04/23/2011 05/02/2011 Overview: 04/27/2011 Pt is and lives in [place], [place]. At this time, we anticipate that the patient will be discharged home with no homecare needs. Atelectasis 04/22/2011 04/27/2011 Overview: 04/27/2011 left basilar atelectasis on chest xray 04/24 Plan: - Respiratory therapy - Encourage coughing and deep breathing - Acapella - Aggressive pulmonary hygiene. - Encourage progressive ambulaton. - repeat CXR am . Postoperative pain 04/22/2011 05/02/2011 Overview: 04/27/2011 Pt reports adequate pain control on current regimen Oxycodone and Motrin elixir. Currently has 3 abdominal [address] tubes in place. Plan: - oxycodone/motrin for homegoing . GERD (gastroesophageal reflux disease) 1 04/27/2011 Overview: 04/27/2011 POD 4 PMH of hiatal Hernia. Presents with 2 year hx of GERD worsening over the past 6 months. 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 Her symptoms have progressed over the last two years and worse in the last six months. She now is having poor control with her medications. She has undergone a laparoscopic cholecystectomy with no relief of her symptoms. She was admitted 04/22 and underwent 1) Laparotomy 2) Excision of esophageal leiomyoma and repair of esophageal wall 3) Esophagogastroscopy 4) Aditi fundoplication Plan: - full anti reflux diet - up and ambulating - GERD (gastroesophageal reflux disease) 03/13/2015 Overview: s/p surgery now controlled with zantac Neck pain 05/21/2022 Overview: cervicle fusion 03/05 documented as of this encounter (statuses as of 07/15/2022) [facility] History of Past illness Narrative* Problem Noted Date Resolved Date Leukocytosis 06/27/2022 07/02/2022 Nausea and vomiting 10/04/2016 10/04/2016 Diarrhea 10/04/2016 10/04/2016 Abdominal pain 10/02/2016 10/04/2016 Migraine 04/23/2011 03/13/2015 Overview: 04/27/2011 PMH of Migraine headaches, 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 Stress hyperglycemia 04/23/2011 04/23/2011 Tachycardia 04/23/2011 04/23/2011 DVT prophylaxis 04/23/2011 05/02/2011 Overview: 04/27/2011 The pt is on Heparin 5000 units SC daily and SCD for VTE prophylaxis. No signs or symptoms of DVT/PE. The patient is at moderate risk for VTE. Plan: - Continue ambulation . Discharge Planning 04/23/2011 05/02/2011 Overview: 04/27/2011 Pt is and lives in [place], [place]. At this time, we anticipate that the patient will be discharged home with no homecare needs. Atelectasis 04/22/2011 04/27/2011 Overview: 04/27/2011 left basilar atelectasis on chest xray 04/24 Plan: - Respiratory therapy - Encourage coughing and deep breathing - Acapella - Aggressive pulmonary hygiene. - Encourage progressive ambulaton. - repeat CXR am . Postoperative pain 04/22/2011 05/02/2011 Overview: 04/27/2011 Pt reports adequate pain control on current regimen Oxycodone and Motrin elixir. Currently has 3 abdominal [address] tubes in place. Plan: - oxycodone/motrin for homegoing . GERD (gastroesophageal reflux disease) 1 04/27/2011 Overview: 04/27/2011 POD 4 PMH of hiatal Hernia. Presents with 2 year hx of GERD worsening over the past 6 months. 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 Her symptoms have progressed over the last two years and worse in the last six months. She now is having poor control with her medications. She has undergone a laparoscopic cholecystectomy with no relief of her symptoms. She was admitted 04/22 and underwent 1) Laparotomy 2) Excision of esophageal leiomyoma and repair of esophageal wall 3) Esophagogastroscopy 4) Aditi fundoplication Plan: - full anti reflux diet - up and ambulating - GERD (gastroesophageal reflux disease) 03/13/2015 Overview: s/p surgery now controlled with zantac Neck pain 05/21/2022 Overview: cervicle fusion 03/05 documented as of this encounter (statuses as of 07/16/2022) [facility] History of Past illness Narrative* Problem Noted Date Resolved Date Leukocytosis 06/27/2022 07/02/2022 Nausea and vomiting 10/04/2016 10/04/2016 Diarrhea 10/04/2016 10/04/2016 Abdominal pain 10/02/2016 10/04/2016 Migraine 04/23/2011 03/13/2015 Overview: 04/27/2011 PMH of Migraine headaches, 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 Stress hyperglycemia 04/23/2011 04/23/2011 Tachycardia 04/23/2011 04/23/2011 DVT prophylaxis 04/23/2011 05/02/2011 Overview: 04/27/2011 The pt is on Heparin 5000 units SC daily and SCD for VTE prophylaxis. No signs or symptoms of DVT/PE. The patient is at moderate risk for VTE. Plan: - Continue ambulation . Discharge Planning 04/23/2011 05/02/2011 Overview: 04/27/2011 Pt is and lives in [place], [place]. At this time, we anticipate that the patient will be discharged home with no homecare needs. Atelectasis 04/22/2011 04/27/2011 Overview: 04/27/2011 left basilar atelectasis on chest xray 04/24 Plan: - Respiratory therapy - Encourage coughing and deep breathing - Acapella - Aggressive pulmonary hygiene. - Encourage progressive ambulaton. - repeat CXR am . Postoperative pain 04/22/2011 05/02/2011 Overview: 04/27/2011 Pt reports adequate pain control on current regimen Oxycodone and Motrin elixir. Currently has 3 abdominal [address] tubes in place. Plan: - oxycodone/motrin for homegoing . GERD (gastroesophageal reflux disease) 1 04/27/2011 Overview: 04/27/2011 POD 4 PMH of hiatal Hernia. Presents with 2 year hx of GERD worsening over the past 6 months. 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 Her symptoms have progressed over the last two years and worse in the last six months. She now is having poor control with her medications. She has undergone a laparoscopic cholecystectomy with no relief of her symptoms. She was admitted 04/22 and underwent 1) Laparotomy 2) Excision of esophageal leiomyoma and repair of esophageal wall 3) Esophagogastroscopy 4) Aditi fundoplication Plan: - full anti reflux diet - up and ambulating - GERD (gastroesophageal reflux disease) 03/13/2015 Overview: s/p surgery now controlled with zantac Neck pain 05/21/2022 Overview: cervicle fusion 03/05 documented as of this encounter (statuses as of 07/18/2022) [facility] History of Past illness Narrative* Problem Noted Date Resolved Date Leukocytosis 06/27/2022 07/02/2022 Nausea and vomiting 10/04/2016 10/04/2016 Diarrhea 10/04/2016 10/04/2016 Abdominal pain 10/02/2016 10/04/2016 Migraine 04/23/2011 03/13/2015 Overview: 04/27/2011 PMH of Migraine headaches, 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 Stress hyperglycemia 04/23/2011 04/23/2011 Tachycardia 04/23/2011 04/23/2011 DVT prophylaxis 04/23/2011 05/02/2011 Overview: 04/27/2011 The pt is on Heparin 5000 units SC daily and SCD for VTE prophylaxis. No signs or symptoms of DVT/PE. The patient is at moderate risk for VTE. Plan: - Continue ambulation . Discharge Planning 04/23/2011 05/02/2011 Overview: 04/27/2011 Pt is and lives in [place], [place]. At this time, we anticipate that the patient will be discharged home with no homecare needs. Atelectasis 04/22/2011 04/27/2011 Overview: 04/27/2011 left basilar atelectasis on chest xray 04/24 Plan: - Respiratory therapy - Encourage coughing and deep breathing - Acapella - Aggressive pulmonary hygiene. - Encourage progressive ambulaton. - repeat CXR am . Postoperative pain 04/22/2011 05/02/2011 Overview: 04/27/2011 Pt reports adequate pain control on current regimen Oxycodone and Motrin elixir. Currently has 3 abdominal [address] tubes in place. Plan: - oxycodone/motrin for homegoing . GERD (gastroesophageal reflux disease) 1 04/27/2011 Overview: 04/27/2011 POD 4 PMH of hiatal Hernia. Presents with 2 year hx of GERD worsening over the past 6 months. 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 Her symptoms have progressed over the last two years and worse in the last six months. She now is having poor control with her medications. She has undergone a laparoscopic cholecystectomy with no relief of her symptoms. She was admitted 04/22 and underwent 1) Laparotomy 2) Excision of esophageal leiomyoma and repair of esophageal wall 3) Esophagogastroscopy 4) Aditi fundoplication Plan: - full anti reflux diet - up and ambulating - GERD (gastroesophageal reflux disease) 03/13/2015 Overview: s/p surgery now controlled with zantac Neck pain 05/21/2022 Overview: cervicle fusion 03/05 documented as of this encounter (statuses as of 07/20/2022) [facility] History of Past illness Narrative* Problem Noted Date Resolved Date Leukocytosis 06/27/2022 07/02/2022 Nausea and vomiting 10/04/2016 10/04/2016 Diarrhea 10/04/2016 10/04/2016 Abdominal pain 10/02/2016 10/04/2016 Migraine 04/23/2011 03/13/2015 Overview: 04/27/2011 PMH of Migraine headaches, 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 Stress hyperglycemia 04/23/2011 04/23/2011 Tachycardia 04/23/2011 04/23/2011 DVT prophylaxis 04/23/2011 05/02/2011 Overview: 04/27/2011 The pt is on Heparin 5000 units SC daily and SCD for VTE prophylaxis. No signs or symptoms of DVT/PE. The patient is at moderate risk for VTE. Plan: - Continue ambulation . Discharge Planning 04/23/2011 05/02/2011 Overview: 04/27/2011 Pt is and lives in [place], [place]. At this time, we anticipate that the patient will be discharged home with no homecare needs. Atelectasis 04/22/2011 04/27/2011 Overview: 04/27/2011 left basilar atelectasis on chest xray 04/24 Plan: - Respiratory therapy - Encourage coughing and deep breathing - Acapella - Aggressive pulmonary hygiene. - Encourage progressive ambulaton. - repeat CXR am . Postoperative pain 04/22/2011 05/02/2011 Overview: 04/27/2011 Pt reports adequate pain control on current regimen Oxycodone and Motrin elixir. Currently has 3 abdominal [address] tubes in place. Plan: - oxycodone/motrin for homegoing . GERD (gastroesophageal reflux disease) 1 04/27/2011 Overview: 04/27/2011 POD 4 PMH of hiatal Hernia. Presents with 2 year hx of GERD worsening over the past 6 months. 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 Her symptoms have progressed over the last two years and worse in the last six months. She now is having poor control with her medications. She has undergone a laparoscopic cholecystectomy with no relief of her symptoms. She was admitted 04/22 and underwent 1) Laparotomy 2) Excision of esophageal leiomyoma and repair of esophageal wall 3) Esophagogastroscopy 4) Aditi fundoplication Plan: - full anti reflux diet - up and ambulating - GERD (gastroesophageal reflux disease) 03/13/2015 Overview: s/p surgery now controlled with zantac Neck pain 05/21/2022 Overview: cervicle fusion 03/05 documented as of this encounter (statuses as of 07/22/2022) [facility] History of Past illness Narrative* Problem Noted Date Resolved Date Leukocytosis 06/27/2022 07/02/2022 Nausea and vomiting 10/04/2016 10/04/2016 Diarrhea 10/04/2016 10/04/2016 Abdominal pain 10/02/2016 10/04/2016 Migraine 04/23/2011 03/13/2015 Overview: 04/27/2011 PMH of Migraine headaches, 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 Stress hyperglycemia 04/23/2011 04/23/2011 Tachycardia 04/23/2011 04/23/2011 DVT prophylaxis 04/23/2011 05/02/2011 Overview: 04/27/2011 The pt is on Heparin 5000 units SC daily and SCD for VTE prophylaxis. No signs or symptoms of DVT/PE. The patient is at moderate risk for VTE. Plan: - Continue ambulation . Discharge Planning 04/23/2011 05/02/2011 Overview: 04/27/2011 Pt is and lives in [place], [place]. At this time, we anticipate that the patient will be discharged home with no homecare needs. Atelectasis 04/22/2011 04/27/2011 Overview: 04/27/2011 left basilar atelectasis on chest xray 04/24 Plan: - Respiratory therapy - Encourage coughing and deep breathing - Acapella - Aggressive pulmonary hygiene. - Encourage progressive ambulaton. - repeat CXR am . Postoperative pain 04/22/2011 05/02/2011 Overview: 04/27/2011 Pt reports adequate pain control on current regimen Oxycodone and Motrin elixir. Currently has 3 abdominal [address] tubes in place. Plan: - oxycodone/motrin for homegoing . GERD (gastroesophageal reflux disease) 1 04/27/2011 Overview: 04/27/2011 POD 4 PMH of hiatal Hernia. Presents with 2 year hx of GERD worsening over the past 6 months. 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 Her symptoms have progressed over the last two years and worse in the last six months. She now is having poor control with her medications. She has undergone a laparoscopic cholecystectomy with no relief of her symptoms. She was admitted 04/22 and underwent 1) Laparotomy 2) Excision of esophageal leiomyoma and repair of esophageal wall 3) Esophagogastroscopy 4) Aditi fundoplication Plan: - full anti reflux diet - up and ambulating - GERD (gastroesophageal reflux disease) 03/13/2015 Overview: s/p surgery now controlled with zantac Neck pain 05/21/2022 Overview: cervicle fusion 03/05 documented as of this encounter (statuses as of 07/23/2022) [facility] History of Past illness Narrative* Problem Noted Date Resolved Date Leukocytosis 06/27/2022 07/02/2022 Nausea and vomiting 10/04/2016 10/04/2016 Diarrhea 10/04/2016 10/04/2016 Abdominal pain 10/02/2016 10/04/2016 Migraine 04/23/2011 03/13/2015 Overview: 04/27/2011 PMH of Migraine headaches, 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 Stress hyperglycemia 04/23/2011 04/23/2011 Tachycardia 04/23/2011 04/23/2011 DVT prophylaxis 04/23/2011 05/02/2011 Overview: 04/27/2011 The pt is on Heparin 5000 units SC daily and SCD for VTE prophylaxis. No signs or symptoms of DVT/PE. The patient is at moderate risk for VTE. Plan: - Continue ambulation . Discharge Planning 04/23/2011 05/02/2011 Overview: 04/27/2011 Pt is and lives in [place], [place]. At this time, we anticipate that the patient will be discharged home with no homecare needs. Atelectasis 04/22/2011 04/27/2011 Overview: 04/27/2011 left basilar atelectasis on chest xray 04/24 Plan: - Respiratory therapy - Encourage coughing and deep breathing - Acapella - Aggressive pulmonary hygiene. - Encourage progressive ambulaton. - repeat CXR am . Postoperative pain 04/22/2011 05/02/2011 Overview: 04/27/2011 Pt reports adequate pain control on current regimen Oxycodone and Motrin elixir. Currently has 3 abdominal [address] tubes in place. Plan: - oxycodone/motrin for homegoing . GERD (gastroesophageal reflux disease) 1 04/27/2011 Overview: 04/27/2011 POD 4 PMH of hiatal Hernia. Presents with 2 year hx of GERD worsening over the past 6 months. 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 Her symptoms have progressed over the last two years and worse in the last six months. She now is having poor control with her medications. She has undergone a laparoscopic cholecystectomy with no relief of her symptoms. She was admitted 04/22 and underwent 1) Laparotomy 2) Excision of esophageal leiomyoma and repair of esophageal wall 3) Esophagogastroscopy 4) Aditi fundoplication Plan: - full anti reflux diet - up and ambulating - GERD (gastroesophageal reflux disease) 03/13/2015 Overview: s/p surgery now controlled with zantac Neck pain 05/21/2022 Overview: cervicle fusion 03/05 documented as of this encounter (statuses as of 07/25/2022) [facility] History of Past illness Narrative* Problem Noted Date Resolved Date Leukocytosis 06/27/2022 07/02/2022 Nausea and vomiting 10/04/2016 10/04/2016 Diarrhea 10/04/2016 10/04/2016 Abdominal pain 10/02/2016 10/04/2016 Migraine 04/23/2011 03/13/2015 Overview: 04/27/2011 PMH of Migraine headaches, 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 Stress hyperglycemia 04/23/2011 04/23/2011 Tachycardia 04/23/2011 04/23/2011 DVT prophylaxis 04/23/2011 05/02/2011 Overview: 04/27/2011 The pt is on Heparin 5000 units SC daily and SCD for VTE prophylaxis. No signs or symptoms of DVT/PE. The patient is at moderate risk for VTE. Plan: - Continue ambulation . Discharge Planning 04/23/2011 05/02/2011 Overview: 04/27/2011 Pt is and lives in [place], [place]. At this time, we anticipate that the patient will be discharged home with no homecare needs. Atelectasis 04/22/2011 04/27/2011 Overview: 04/27/2011 left basilar atelectasis on chest xray 04/24 Plan: - Respiratory therapy - Encourage coughing and deep breathing - Acapella - Aggressive pulmonary hygiene. - Encourage progressive ambulaton. - repeat CXR am . Postoperative pain 04/22/2011 05/02/2011 Overview: 04/27/2011 Pt reports adequate pain control on current regimen Oxycodone and Motrin elixir. Currently has 3 abdominal [address] tubes in place. Plan: - oxycodone/motrin for homegoing . GERD (gastroesophageal reflux disease) 1 04/27/2011 Overview: 04/27/2011 POD 4 PMH of hiatal Hernia. Presents with 2 year hx of GERD worsening over the past 6 months. 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 Her symptoms have progressed over the last two years and worse in the last six months. She now is having poor control with her medications. She has undergone a laparoscopic cholecystectomy with no relief of her symptoms. She was admitted 04/22 and underwent 1) Laparotomy 2) Excision of esophageal leiomyoma and repair of esophageal wall 3) Esophagogastroscopy 4) Aditi fundoplication Plan: - full anti reflux diet - up and ambulating - GERD (gastroesophageal reflux disease) 03/13/2015 Overview: s/p surgery now controlled with zantac Neck pain 05/21/2022 Overview: cervicle fusion 03/05 documented as of this encounter (statuses as of 07/25/2022) [facility] History of Past illness Narrative* Problem Noted Date Resolved Date Leukocytosis 06/27/2022 07/02/2022 Nausea and vomiting 10/04/2016 10/04/2016 Diarrhea 10/04/2016 10/04/2016 Abdominal pain 10/02/2016 10/04/2016 Migraine 04/23/2011 03/13/2015 Overview: 04/27/2011 PMH of Migraine headaches, 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 Stress hyperglycemia 04/23/2011 04/23/2011 Tachycardia 04/23/2011 04/23/2011 DVT prophylaxis 04/23/2011 05/02/2011 Overview: 04/27/2011 The pt is on Heparin 5000 units SC daily and SCD for VTE prophylaxis. No signs or symptoms of DVT/PE. The patient is at moderate risk for VTE. Plan: - Continue ambulation . Discharge Planning 04/23/2011 05/02/2011 Overview: 04/27/2011 Pt is and lives in [place], [place]. At this time, we anticipate that the patient will be discharged home with no homecare needs. Atelectasis 04/22/2011 04/27/2011 Overview: 04/27/2011 left basilar atelectasis on chest xray 04/24 Plan: - Respiratory therapy - Encourage coughing and deep breathing - Acapella - Aggressive pulmonary hygiene. - Encourage progressive ambulaton. - repeat CXR am . Postoperative pain 04/22/2011 05/02/2011 Overview: 04/27/2011 Pt reports adequate pain control on current regimen Oxycodone and Motrin elixir. Currently has 3 abdominal [address] tubes in place. Plan: - oxycodone/motrin for homegoing . GERD (gastroesophageal reflux disease) 1 04/27/2011 Overview: 04/27/2011 POD 4 PMH of hiatal Hernia. Presents with 2 year hx of GERD worsening over the past 6 months. 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 Her symptoms have progressed over the last two years and worse in the last six months. She now is having poor control with her medications. She has undergone a laparoscopic cholecystectomy with no relief of her symptoms. She was admitted 04/22 and underwent 1) Laparotomy 2) Excision of esophageal leiomyoma and repair of esophageal wall 3) Esophagogastroscopy 4) Aditi fundoplication Plan: - full anti reflux diet - up and ambulating - GERD (gastroesophageal reflux disease) 03/13/2015 Overview: s/p surgery now controlled with zantac Neck pain 05/21/2022 Overview: cervicle fusion 03/05 documented as of this encounter (statuses as of 07/30/2022) [facility] History of Past illness Narrative* Problem Noted Date Resolved Date Leukocytosis 06/27/2022 07/02/2022 Nausea and vomiting 10/04/2016 10/04/2016 Diarrhea 10/04/2016 10/04/2016 Abdominal pain 10/02/2016 10/04/2016 Migraine 04/23/2011 03/13/2015 Overview: 04/27/2011 PMH of Migraine headaches, 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 Stress hyperglycemia 04/23/2011 04/23/2011 Tachycardia 04/23/2011 04/23/2011 DVT prophylaxis 04/23/2011 05/02/2011 Overview: 04/27/2011 The pt is on Heparin 5000 units SC daily and SCD for VTE prophylaxis. No signs or symptoms of DVT/PE. The patient is at moderate risk for VTE. Plan: - Continue ambulation . Discharge Planning 04/23/2011 05/02/2011 Overview: 04/27/2011 Pt is and lives in [place], [place]. At this time, we anticipate that the patient will be discharged home with no homecare needs. Atelectasis 04/22/2011 04/27/2011 Overview: 04/27/2011 left basilar atelectasis on chest xray 04/24 Plan: - Respiratory therapy - Encourage coughing and deep breathing - Acapella - Aggressive pulmonary hygiene. - Encourage progressive ambulaton. - repeat CXR am . Postoperative pain 04/22/2011 05/02/2011 Overview: 04/27/2011 Pt reports adequate pain control on current regimen Oxycodone and Motrin elixir. Currently has 3 abdominal ELI tubes in place. Plan: - oxycodone/motrin for homegoing . GERD (gastroesophageal reflux disease) 1 04/27/2011 Overview: 04/27/2011 POD 4 PMH of hiatal Hernia. Presents with 2 year hx of GERD worsening over the past 6 months. 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 Her symptoms have progressed over the last two years and worse in the last six months. She now is having poor control with her medications. She has undergone a laparoscopic cholecystectomy with no relief of her symptoms. She was admitted 04/22 and underwent 1) Laparotomy 2) Excision of esophageal leiomyoma and repair of esophageal wall 3) Esophagogastroscopy 4) Aditi fundoplication Plan: - full anti reflux diet - up and ambulating - GERD (gastroesophageal reflux disease) 03/13/2015 Overview: s/p surgery now controlled with zantac Neck pain 05/21/2022 Overview: cervicle fusion 03/05 documented as of this encounter (statuses as of 08/01/2022) [facility] History of Past illness Narrative* Problem Noted Date Resolved Date Leukocytosis 06/27/2022 07/02/2022 Nausea and vomiting 10/04/2016 10/04/2016 Diarrhea 10/04/2016 10/04/2016 Abdominal pain 10/02/2016 10/04/2016 Migraine 04/23/2011 03/13/2015 Overview: 04/27/2011 PMH of Migraine headaches, 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 Stress hyperglycemia 04/23/2011 04/23/2011 Tachycardia 04/23/2011 04/23/2011 DVT prophylaxis 04/23/2011 05/02/2011 Overview: 04/27/2011 The pt is on Heparin 5000 units SC daily and SCD for VTE prophylaxis. No signs or symptoms of DVT/PE. The patient is at moderate risk for VTE. Plan: - Continue ambulation . Discharge Planning 04/23/2011 05/02/2011 Overview: 04/27/2011 Pt is and lives in [place], [place]. At this time, we anticipate that the patient will be discharged home with no homecare needs. Atelectasis 04/22/2011 04/27/2011 Overview: 04/27/2011 left basilar atelectasis on chest xray 04/24 Plan: - Respiratory therapy - Encourage coughing and deep breathing - Acapella - Aggressive pulmonary hygiene. - Encourage progressive ambulaton. - repeat CXR am . Postoperative pain 04/22/2011 05/02/2011 Overview: 04/27/2011 Pt reports adequate pain control on current regimen Oxycodone and Motrin elixir. Currently has 3 abdominal [address] tubes in place. Plan: - oxycodone/motrin for homegoing . GERD (gastroesophageal reflux disease) 1 04/27/2011 Overview: 04/27/2011 POD 4 PMH of hiatal Hernia. Presents with 2 year hx of GERD worsening over the past 6 months. 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 Her symptoms have progressed over the last two years and worse in the last six months. She now is having poor control with her medications. She has undergone a laparoscopic cholecystectomy with no relief of her symptoms. She was admitted 04/22 and underwent 1) Laparotomy 2) Excision of esophageal leiomyoma and repair of esophageal wall 3) Esophagogastroscopy 4) Aditi fundoplication Plan: - full anti reflux diet - up and ambulating - GERD (gastroesophageal reflux disease) 03/13/2015 Overview: s/p surgery now controlled with zantac Neck pain 05/21/2022 Overview: cervicle fusion 03/05 documented as of this encounter (statuses as of 08/08/2022) [facility] History of Past illness Narrative* Problem Noted Date Resolved Date Leukocytosis 06/27/2022 07/02/2022 Nausea and vomiting 10/04/2016 10/04/2016 Diarrhea 10/04/2016 10/04/2016 Abdominal pain 10/02/2016 10/04/2016 Migraine 04/23/2011 03/13/2015 Overview: 04/27/2011 PMH of Migraine headaches, 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 Stress hyperglycemia 04/23/2011 04/23/2011 Tachycardia 04/23/2011 04/23/2011 DVT prophylaxis 04/23/2011 05/02/2011 Overview: 04/27/2011 The pt is on Heparin 5000 units SC daily and SCD for VTE prophylaxis. No signs or symptoms of DVT/PE. The patient is at moderate risk for VTE. Plan: - Continue ambulation . Discharge Planning 04/23/2011 05/02/2011 Overview: 04/27/2011 Pt is and lives in [place], [place]. At this time, we anticipate that the patient will be discharged home with no homecare needs. Atelectasis 04/22/2011 04/27/2011 Overview: 04/27/2011 left basilar atelectasis on chest xray 04/24 Plan: - Respiratory therapy - Encourage coughing and deep breathing - Acapella - Aggressive pulmonary hygiene. - Encourage progressive ambulaton. - repeat CXR am . Postoperative pain 04/22/2011 05/02/2011 Overview: 04/27/2011 Pt reports adequate pain control on current regimen Oxycodone and Motrin elixir. Currently has 3 abdominal [address] tubes in place. Plan: - oxycodone/motrin for homegoing . GERD (gastroesophageal reflux disease) 1 04/27/2011 Overview: 04/27/2011 POD 4 PMH of hiatal Hernia. Presents with 2 year hx of GERD worsening over the past 6 months. 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 Her symptoms have progressed over the last two years and worse in the last six months. She now is having poor control with her medications. She has undergone a laparoscopic cholecystectomy with no relief of her symptoms. She was admitted 04/22 and underwent 1) Laparotomy 2) Excision of esophageal leiomyoma and repair of esophageal wall 3) Esophagogastroscopy 4) Aditi fundoplication Plan: - full anti reflux diet - up and ambulating - GERD (gastroesophageal reflux disease) 03/13/2015 Overview: s/p surgery now controlled with zantac Neck pain 05/21/2022 Overview: cervicle fusion 03/05 documented as of this encounter (statuses as of 08/15/2022) [facility] History of Past illness Narrative* Problem Noted Date Resolved Date Leukocytosis 06/27/2022 07/02/2022 Nausea and vomiting 10/04/2016 10/04/2016 Diarrhea 10/04/2016 10/04/2016 Abdominal pain 10/02/2016 10/04/2016 Migraine 04/23/2011 03/13/2015 Overview: 04/27/2011 PMH of Migraine headaches, 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 Stress hyperglycemia 04/23/2011 04/23/2011 Tachycardia 04/23/2011 04/23/2011 DVT prophylaxis 04/23/2011 05/02/2011 Overview: 04/27/2011 The pt is on Heparin 5000 units SC daily and SCD for VTE prophylaxis. No signs or symptoms of DVT/PE. The patient is at moderate risk for VTE. Plan: - Continue ambulation . Discharge Planning 04/23/2011 05/02/2011 Overview: 04/27/2011 Pt is and lives in [place], [place]. At this time, we anticipate that the patient will be discharged home with no homecare needs. Atelectasis 04/22/2011 04/27/2011 Overview: 04/27/2011 left basilar atelectasis on chest xray 04/24 Plan: - Respiratory therapy - Encourage coughing and deep breathing - Acapella - Aggressive pulmonary hygiene. - Encourage progressive ambulaton. - repeat CXR am . Postoperative pain 04/22/2011 05/02/2011 Overview: 04/27/2011 Pt reports adequate pain control on current regimen Oxycodone and Motrin elixir. Currently has 3 abdominal [address] tubes in place. Plan: - oxycodone/motrin for homegoing . GERD (gastroesophageal reflux disease) 1 04/27/2011 Overview: 04/27/2011 POD 4 PMH of hiatal Hernia. Presents with 2 year hx of GERD worsening over the past 6 months. 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 Her symptoms have progressed over the last two years and worse in the last six months. She now is having poor control with her medications. She has undergone a laparoscopic cholecystectomy with no relief of her symptoms. She was admitted 04/22 and underwent 1) Laparotomy 2) Excision of esophageal leiomyoma and repair of esophageal wall 3) Esophagogastroscopy 4) Aditi fundoplication Plan: - full anti reflux diet - up and ambulating - GERD (gastroesophageal reflux disease) 03/13/2015 Overview: s/p surgery now controlled with zantac Neck pain 05/21/2022 Overview: cervicle fusion 03/05 documented as of this encounter (statuses as of 12/08/2022) [facility] History of Past illness Narrative* Problem Noted Date Diagnosed Date Resolved Date Leukocytosis 06/27/2022 07/02/2022 Nausea and vomiting 10/04/2016 10/05/19 17 Diarrhea 10/04/2016 10/04/2016 Abdominal pain 10/02/2016 10/04/2016 Migraine 04/23/2011 03/13/2015 Overview: 04/27/2011 PMH of Migraine headaches, 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 Stress hyperglycemia 04/23/2011 011 Tachycardia 04/23/2011 04/23/2011 DVT prophylaxis 04/23/2011 05/02/2011 Overview: 04/27/2011 The pt is on Heparin 5000 units SC daily and SCD for VTE prophylaxis. No signs or symptoms of DVT/PE. The patient is at moderate risk for VTE. Plan: - Continue ambulation . Discharge Planning 04/23/2011 1 Overview: 04/27/2011 Pt is and lives in [place], [place]. At this time, we anticipate that the patient will be discharged home with no homecare needs. Atelectasis 04/22/2011 04/27/2011 Overview: 04/27/2011 left basilar atelectasis on chest xray 04/24 Plan: - Respiratory therapy - Encourage coughing and deep breathing - Acapella - Aggressive pulmonary hygiene. - Encourage progressive ambulaton. - repeat CXR am . Postoperative pain 04/22/2011 1 Overview: 04/27/2011 Pt reports adequate pain control on current regimen Oxycodone and Motrin elixir. Currently has 3 abdominal [address] tubes in place. Plan: - oxycodone/motrin for homegoing . GERD (gastroesophageal reflux disease) 04/21/2011 04/27/2011 Overview: 04/27/2011 POD 4 PMH of hiatal Hernia. Presents with 2 year hx of GERD worsening over the past 6 months. 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 Her symptoms have progressed over the last two years and worse in the last six months. She now is having poor control with her medications. She has undergone a laparoscopic cholecystectomy with no relief of her symptoms. She was admitted 04/22 and underwent 1) Laparotomy 2) Excision of esophageal leiomyoma and repair of esophageal wall 3) Esophagogastroscopy 4) Aditi fundoplication Plan: - full anti reflux diet - up and ambulating - GERD (gastroesophageal reflux disease) 03/13/2015 Overview: s/p surgery now controlled with zantac Neck pain 05/21/2022 Overview: cervicle fusion 03/05 documented as of this encounter (statuses as of 01/07/2023) [facility] History of Past illness Narrative* Problem Noted Date Diagnosed Date Resolved Date Leukocytosis 06/27/2022 07/02/2022 Nausea and vomiting 10/04/2016 10/05/19 17 Diarrhea 10/04/2016 10/04/2016 Abdominal pain 10/02/2016 10/04/2016 Migraine 04/23/2011 03/13/2015 Overview: 04/27/2011 PMH of Migraine headaches, 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 Stress hyperglycemia 04/23/2011 011 Tachycardia 04/23/2011 04/23/2011 DVT prophylaxis 04/23/2011 05/02/2011 Overview: 04/27/2011 The pt is on Heparin 5000 units SC daily and SCD for VTE prophylaxis. No signs or symptoms of DVT/PE. The patient is at moderate risk for VTE. Plan: - Continue ambulation . Discharge Planning 04/23/2011 1 Overview: 04/27/2011 Pt is and lives in [place], [place]. At this time, we anticipate that the patient will be discharged home with no homecare needs. Atelectasis 04/22/2011 04/27/2011 Overview: 04/27/2011 left basilar atelectasis on chest xray 04/24 Plan: - Respiratory therapy - Encourage coughing and deep breathing - Acapella - Aggressive pulmonary hygiene. - Encourage progressive ambulaton. - repeat CXR am . Postoperative pain 04/22/2011 1 Overview: 04/27/2011 Pt reports adequate pain control on current regimen Oxycodone and Motrin elixir. Currently has 3 abdominal [address] tubes in place. Plan: - oxycodone/motrin for homegoing . GERD (gastroesophageal reflux disease) 04/21/2011 04/27/2011 Overview: 04/27/2011 POD 4 PMH of hiatal Hernia. Presents with 2 year hx of GERD worsening over the past 6 months. 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 Her symptoms have progressed over the last two years and worse in the last six months. She now is having poor control with her medications. She has undergone a laparoscopic cholecystectomy with no relief of her symptoms. She was admitted 04/22 and underwent 1) Laparotomy 2) Excision of esophageal leiomyoma and repair of esophageal wall 3) Esophagogastroscopy 4) Aditi fundoplication Plan: - full anti reflux diet - up and ambulating - GERD (gastroesophageal reflux disease) 03/13/2015 Overview: s/p surgery now controlled with zantac Neck pain 05/21/2022 Overview: cervicle fusion 03/05 documented as of this encounter (statuses as of 01/07/2023) [facility] History of Past illness Narrative* Problem Noted Date Diagnosed Date Resolved Date Leukocytosis 06/27/2022 07/02/2022 Nausea and vomiting 10/04/2016 10/05/19 17 Diarrhea 10/04/2016 10/04/2016 Abdominal pain 10/02/2016 10/04/2016 Migraine 04/23/2011 03/13/2015 Overview: 04/27/2011 PMH of Migraine headaches, 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 Stress hyperglycemia 04/23/2011 011 Tachycardia 04/23/2011 04/23/2011 DVT prophylaxis 04/23/2011 05/02/2011 Overview: 04/27/2011 The pt is on Heparin 5000 units SC daily and SCD for VTE prophylaxis. No signs or symptoms of DVT/PE. The patient is at moderate risk for VTE. Plan: - Continue ambulation . Discharge Planning 04/23/2011 1 Overview: 04/27/2011 Pt is and lives in [place], [place]. At this time, we anticipate that the patient will be discharged home with no homecare needs. Atelectasis 04/22/2011 04/27/2011 Overview: 04/27/2011 left basilar atelectasis on chest xray 04/24 Plan: - Respiratory therapy - Encourage coughing and deep breathing - Acapella - Aggressive pulmonary hygiene. - Encourage progressive ambulaton. - repeat CXR am . Postoperative pain 04/22/2011 1 Overview: 04/27/2011 Pt reports adequate pain control on current regimen Oxycodone and Motrin elixir. Currently has 3 abdominal [address] tubes in place. Plan: - oxycodone/motrin for homegoing . GERD (gastroesophageal reflux disease) 04/21/2011 04/27/2011 Overview: 04/27/2011 POD 4 PMH of hiatal Hernia. Presents with 2 year hx of GERD worsening over the past 6 months. 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 Her symptoms have progressed over the last two years and worse in the last six months. She now is having poor control with her medications. She has undergone a laparoscopic cholecystectomy with no relief of her symptoms. She was admitted 04/22 and underwent 1) Laparotomy 2) Excision of esophageal leiomyoma and repair of esophageal wall 3) Esophagogastroscopy 4) Aditi fundoplication Plan: - full anti reflux diet - up and ambulating - GERD (gastroesophageal reflux disease) 03/13/2015 Overview: s/p surgery now controlled with zantac Neck pain 05/21/2022 Overview: cervicle fusion 03/05 documented as of this encounter (statuses as of 01/08/2023) [facility] History of Past illness Narrative* Problem Noted Date Diagnosed Date Resolved Date Leukocytosis 06/27/2022 07/02/2022 Nausea and vomiting 10/04/2016 10/05/19 17 Diarrhea 10/04/2016 10/04/2016 Abdominal pain 10/02/2016 10/04/2016 Migraine 04/23/2011 03/13/2015 Overview: 04/27/2011 PMH of Migraine headaches, 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 Stress hyperglycemia 04/23/2011 011 Tachycardia 04/23/2011 04/23/2011 DVT prophylaxis 04/23/2011 05/02/2011 Overview: 04/27/2011 The pt is on Heparin 5000 units SC daily and SCD for VTE prophylaxis. No signs or symptoms of DVT/PE. The patient is at moderate risk for VTE. Plan: - Continue ambulation . Discharge Planning 04/23/2011 1 Overview: 04/27/2011 Pt is and lives in [place], [place]. At this time, we anticipate that the patient will be discharged home with no homecare needs. Atelectasis 04/22/2011 04/27/2011 Overview: 04/27/2011 left basilar atelectasis on chest xray 04/24 Plan: - Respiratory therapy - Encourage coughing and deep breathing - Acapella - Aggressive pulmonary hygiene. - Encourage progressive ambulaton. - repeat CXR am . Postoperative pain 04/22/2011 1 Overview: 04/27/2011 Pt reports adequate pain control on current regimen Oxycodone and Motrin elixir. Currently has 3 abdominal [address] tubes in place. Plan: - oxycodone/motrin for homegoing . GERD (gastroesophageal reflux disease) 04/21/2011 04/27/2011 Overview: 04/27/2011 POD 4 PMH of hiatal Hernia. Presents with 2 year hx of GERD worsening over the past 6 months. 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 Her symptoms have progressed over the last two years and worse in the last six months. She now is having poor control with her medications. She has undergone a laparoscopic cholecystectomy with no relief of her symptoms. She was admitted 04/22 and underwent 1) Laparotomy 2) Excision of esophageal leiomyoma and repair of esophageal wall 3) Esophagogastroscopy 4) Aditi fundoplication Plan: - full anti reflux diet - up and ambulating - GERD (gastroesophageal reflux disease) 03/13/2015 Overview: s/p surgery now controlled with zantac Neck pain 05/21/2022 Overview: cervicle fusion 03/05 documented as of this encounter (statuses as of 01/08/2023) [facility] History of Present illness Narrative* GENIA Valerio - 06/27/2022 1:47 PM EST IMPRESSION: Patient is s/p laparoscopic incisional hernia repair WITH mesh. PLAN: Patient was taken over to the ER for further workup. ER provider aware and will obtain appropriate lab work and imaging. Will likely need admission of IV antibiotics. Follow up: pending clinical course SUBJECTIVE: On 06/06/22 Tevin Villagomez underwent a hernia repair with Dr. Christy Perez. She was seen on Thursday by Dr. Perez who drained purulent fluid from her abdomen and started her on antibiotics. Patient with low grade fever and chills. Feels crummy Pain in upper abdomen under rib cage. OBJECTIVE: Temp 37.6 C (99.6 F) General Appearance: alert, oriented and in no acute distress, well nourished, cooperative, slightlylethargic Abdomen: soft; erythema and induration just left of the umbilicus and incision, diffusely tender Incision: well approximated, healing well Gloria Stewart PA-C 06/27/2022 [facility] History of Present illness Narrative* Christy Perez MD - 06/25/2022 8:59 PM EST HPI: Rimma presents in follow-up of her laparoscopic incisional hernia repair with mesh performed on June 06. She had persistent increased drain outputs. This was removed in the office last week. She has had persistent drainage from the drain site. EXAM: There were no vitals taken for this visit. There is erythema and firmness along the left aspect of her hernia site. This was aspirated and noted to be purulent fluid. This was sent for culture. 70 mL was removed. No further collections were identified with ultrasound. The area remains very firm and indurated. PATHOLOGY: Hernia sac ASSESSMENT: (L24.A9) Wound drainage (primary encounter diagnosis) (Z98.890, Z87.19) S/P laparoscopic hernia repair Tevin presents status post laparoscopic incisional hernia repair with mesh. She had a large hernia defect present. She had a drain in place which was removed last week. She now has evidence for wound infection of the seroma cavity. This was aspirated with ultrasound guidance in the office today. Culture was sent. She will be started on Augmentin. She will return to see Gloria on Thursday for closefollow-up. The wound may need opening for adequate drainage. Office Visit on 06/25/22 WOUND CULTURE AND GRAM STAIN amoxicillin-clavulanic acid (AUGMENTIN) 875-125 mg per tablet Christy Perez MD [facility] Miscellaneous Notes* Telephone Encounter - Alaina Ray RN - 06/24/2022 12:28 PM EST Message sent to Gloria Stewart Pa-C. She advises patient to be seen tomorrow. Voice message left for patient regarding message Encounter closed. Encounter closed. * Telephone Encounter - Alaina Ray RN - 06/24/2022 12:21 PM EST Patient call: Incisional hernia Repair 06/06/23 Last seen 06/18/22 per Gloria Stewart Pa-C I had had surgery on the . Last week they had pulled drain from the site. It was okay and until the day before yesterday it started draining and then again today it hasn't started draining. I guess I just need to know if that's normal. I do have an appointment tomorrow at 3:00. Thank you. [facility] History of Present illness Narrative* Gloria Stewart PA-C - 06/18/2022 12:23 PM EST IMPRESSION: Patient is s/p laparoscopic incisional hernia repair WITH mesh. PLAN: Post-op patient instructions were reviewed with the patient. I have explained to Ms. Villagomez that she may return to normal activity with the following restrictions: no lifting greater than 20lbs for the next 4 weeks. I have encouraged her to contact me at any time with any questions or concerns that may arise. Follow up: as scheduled with Dr. Perez; will call with lab results SUBJECTIVE: On 06/06/22 Tevin Villagomez underwent a hernia repair with Dr. Christy Perez. Presents now forfollow up. Drain with minimal output. Patient complaints: Nausea, Constipation, and upper abdominal tenderness ; states she feels blah Patient denies: Vomiting, Fever, Chills, Difficulty voiding, and Drainage from incision/s OBJECTIVE: BP 123/79 (BP Site: Left Arm) Pulse 119 Temp 36.8 C (98.3 F) General Appearance: alert, oriented and in no acute distress, well nourished, cooperative, slightlylethargic Abdomen: soft; mild RUQ tender Incision: well approximated, no signs or symptoms of infection , and clean, dry and intact Gloria Stewart PA-C 06/18/2022 [facility] Instructions* Patient Instructions* Gloria Stewart PA-C - 06/11/2022 1:21 PM EST No lifting > 15 lbs for 5 weeks OK to shower no soaking. Pain medication tramadol as needed. documented [facility] History of Present illness Narrative* Gloria Stewart PA-C - 06/11/2022 1:10 PM EST IMPRESSION: Patient is s/p laparoscopic incisional hernia repair WITH mesh. PLAN: Drain was left in due to continued high output. We will see her back next week for evaluation. Post-op patient instructions were reviewed with the patient. I have explained to Ms. Villagomez that she may return to normal activity with the following restrictions: no lifting greater than 20lbs for the next 5 weeks. I have encouraged her to contact me at any time with any questions or concerns that may arise. Follow up: 3-5 days SUBJECTIVE: On 06/06/22 Tevin Villagomez underwent a hernia repair with Dr. Christy Perez. Presents now forfollow up. Drain with 100-125cc/24 hrs. Patient complaints: Post operative soreness Patient denies: Nausea, Constipation, and Drainage from incision/s OBJECTIVE: General Appearance: alert, oriented and in no acute distress, well nourished, cooperative Abdomen: soft, appropriate post op tenderness Incision: well approximated, no signs or symptoms of infection , and clean, dry and intact Gloria Stewart PA-C 06/11/2022 documented [facility] encounter[facility] History and physical note * Keke Davis APRN.SHAHZAD - 05/21/2022 9:28 AM EST HISTORY AND PHYSICAL EXAMINATION SERVICE DATE: 05/21/2022 SERVICE TIME: 9:30 AM PRIMARY CARE PHYSICIAN: Cande Ely APRN.SHAHZAD REASON FOR VISIT: Tevin Villagomez is a 66 year old female who is scheduled for LAPAROSCOPIC REPAIR HERNIA REDUCIBLE INCISIONAL W/MESH at the request of Dr. Christy Perez for consultation. My final recommendation will be communicated back to the requesting physician by way of shared medical record or letter. Subjective The patient has the following: ACTIVE PROBLEM LIST Motion Sickness Osteoarthritis Fibromyalgia Migraine Without Aura and Without Status Migrainosus, Not Intractable Gastroesophageal Reflux Disease With Esophagitis Anxiety and Depression Obesity (Bmi 30-39.9) Irritable Colon Malnutrition of Moderate Degree (Hcc) Dilated Bile Duct S/P Ercp Acquired Hypothyroidism Levoscoliosis of Thoracic Spine Dysphagia COVID-19 Immunization Status Overdue - COVID-19 VACCINE (4 - Booster for Moderna series) Overdue since 09/09/2021 07/15/2021 Imm Admin: COVID-19 vaccine, full dose (MODERNA) 09/15/2020 Imm Admin: COVID-19 vaccine, full dose (MODERNA) 08/18/2020 Imm Admin: COVID-19 vaccine, full dose (MODERNA) CHIEF COMPLAINT: Pre-Op Exam HPI: 66 year old female presents with incisional hernia. Patient states the hernia has been presentfor at least 6 months progressively getting worse. She notices bulging present which she thinks hasgrown in size over time. It does seem to reduce when laying down or when her dogs lay on top of her. She has pain present pretty much all the time. She describes it as a little more than an ache. Bending over can aggravate the pain. She denies any alleviating factors at this time. She has had a lotof nausea and is taking anti-nausea medication which has prevented vomiting. She has history of a aditi fundoplication due to GERD and a hiatal hernia in 2010. She has noticed some regurgitation symptoms present if bending over after drinking something. She has some dysphagia and recently had an EGD with dilation, swallowing has improved a little. She has IBS with alternating constipation and diarrhea. She denies any blood in the stool, diverticulitis, crohn's or liver disease. REVIEW OF SYSTEMS: General: No weight loss, malaise or fevers. Neurological: Positive for: headaches. Negative for: impaired sensorium, multiple sclerosis, Parkinson's disease, peripheral neuropathy, seizures, TIA and strokes. Respiratory: No history of current cough or dyspnea, or pneumonia in the past 6 weeks. No history of respiratory/pulmonary symptoms or problems. Cardiovascular: No history of HTN requiring medication, no history of angina, CHF, DC, cardiac surgery or stents. Denies rest pain, gangrene or revascularization/amputation for PVD. No history of cardiovascular symptoms or problems. GI: See HPI. : Positive for: urinary incontinence (Occasional) and nocturia >1 time per night. Negative for: dysuria, frequent urination, hematuria, nephrolithiasis, renal failure and urgency. 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 Endocrine: Positive for: hypothyroidism. Negative for: diabetes mellitus. Hematology: No history of bleeding or clotting disorder. Patient is not taking anti-coagulation or platelet medications. No history of hematological symptoms or problems. Oncology: No history of CA metastasis, chemo within 30 days, or radiotherapy within 90 days. No history of oncological symptoms or problems. Psych: Positive for: anxiety and depression. Musculoskeletal: Positive for: joint pain (Fibromyalgia). Negative for: swelling. Skin: Negative for lesions, rash and itching. PAST MEDICAL HISTORY Diagnosis Date Acquired hypothyroidism Anxiety Cystourethrocele Dysphagia Fibromyalgia GERD (gastroesophageal reflux disease) s/p surgery now controlled with zantac, Dr. Ojeda Hiatal hernia Leiomyoma 04/22/2011 ESOPHAGUS, excised 04/22/2011 Levoscoliosis of thoracic spine Migraine Neck pain cervicle fusion 03/05 Osteoarthritis ? RA Dr Lindsey mtx and [place]ving Vaginal vault prolapse after hysterectomy PAST SURGICAL HISTORY Procedure Laterality Date ARTHROSCOPY KNEE DIAGNOSTIC W/WO SYNOVIAL BX SPX Right 2016 meniscus repair BLADDER SURGERY HX BREAST AUGMENTATION WITH IMPLANT 1991 Breast augmentation BUNIONECTOMY, LAPIDUS-TYPE Bilat. EGD 02/2016 Dr. Ojeda EGD - BALLOON DILATION, GUIDE 01/2022 ESOPHAGOGASTRODUODENOSCOPY TRANSORAL DIAGNOSTIC 11/[address] Ojeda EXT HYSTERECTOMY,W/PARTIAL VAGINECTO benign causes KIDNEY STONE SURGERY HX Ureteral stents PALOMO W/O FACETEC FORAMOT/DSC 06/23 VRT SGM CRV 02/2014 cervicle fusion LAPAROSCOPY SURG CHOLECYSTECTOMY 04/2011 Cholecystectomy, lap MAMMOTOME BIOPSY RIGHT 2013 PAST SURGICAL HISTORY OF 2015 MOHS for basal cell on her back PAST SURGICAL HISTORY OF 03/2016 R TKA RPR PARAESOPH HIATAL HERNIA W/LAPT W/O MESH 04/22/2011 Laparotomy, Excision of esophageal leiomyoma and repair of esophageal wall, Esophagogastroscopy, Aditi fundoplication for Short esophagus, Type I hiatal hernia and Esophageal leiomyoma TONSILLECTOMY PRIMARY/SECONDARY <AGE 12 A CHILD Tonsillectomy FAMILY HISTORY Problem Relation Age of Onset Cancer Mother Lung at 72 y/o Psychiatry Mother nervous breakdown, had shock therapy Cancer Father Lung at 76 y/o Psychiatry Father had nervous breakdown, had shock therapy other (no colon cancer) Father other (no breast cancer) Father other (no diabetes) Father other (no cad) Father Psychiatry Brother Social History Tobacco Use Smoking status: Never Smokeless tobacco: Never Vaping Use Vaping Use: Never used Substance Use Topics Alcohol use: Yes Comment: rare 1x/year Drug use: No Prior to Admission medications as of 05/21/22 0948 Medication Sig Last Dose Taking denosumab (PROLIA) 60 mg/mL 60 mg as directed. Taking Yes meclizine (ANTIVERT) 12.5 mg tab Take 1 tablet by mouth as needed. Taking Yes esomeprazole (NEXIUM) 40 mg capsule Take 40 mg by mouth DAILY (6 AM). Taking Yes levothyroxine (SYNTHROID) 25 mcg tablet Take 25 mcg by mouth once daily. Taking Yes traMADol (ULTRAM) 50 mg tablet Take 50 mg by mouth as needed. Taking Yes sertraline (ZOLOFT) 50 mg tablet Take 1.5 tablets by mouth twice daily. Patient taking differently: Take 100 mg by mouth daily at bedtime. Taking Differently Yes HYDROcodone-Acetaminophen (NORCO) 10-325 mg per tablet Take 1 tablet by mouth every 8 hours as needed for Pain. Taking Yes SUMAtriptan (IMITREX) 100 mg tablet Take 1 tablet by mouth as needed. at onset of headache.May repeat after 2 hours. Taking Yes LORazepam (ATIVAN) 1 mg tablet Take 1 tablet by mouth every 8 hours. Patient taking differently: Take 1 mg by mouth as needed. Taking Differently Yes acetaminophen 325 mg-caffeine 40 mg-butalbital 50 mg (FIORICET) per tablet Take 1 tablet by mouth every 6 hours as needed. Taking Yes zolpidem (AMBIEN) 5 mg tablet Take 1 tablet by mouth at bedtime as needed. Taking Yes promethazine (PHENERGAN) 25 mg tablet Take 1 tablet by mouth every 4 hours as needed for Nausea/Vomiting. Taking Yes No medication comments found. ALLERGIES No Known Allergies Objective PHYSICAL EXAM: General: alert and oriented and obese. Pertinent negatives noted - not distressed. Skin: normal color, no rash or lesions. HEENT: pupils equal round and pupils reactive to light. Pertinent negatives noted - no carotid bruit. Cardiovascular: regular rate and rhythm, normal S1 and S2, no rub, murmurs, or gallop. Respiratory: normal breath sounds, no wheezes or crackles. No chest wall deformity or tenderness. Abdomen: bowel sounds present, hernia and soft. Pertinent negatives noted - no mass, not rigid and not tender. Extremities: no deformity, no edema or tenderness, no joint swelling or clubbing. Neurological: normal cognition and motor skills. Gait normal. No weakness or sensory deficit. PAIN ASSESSMENT: Pain Pain Level: 5 Pain Location: Abdomen-Left Upper Quadrant Description: Aching Frequency: Continuous Intervention/Comfort measure: Medication;Reposition;Relaxation VITALS: BP 122/80 Pulse 64 Temp (Src) 97.8 (Temporal) Resp 16 Ht 5' 1 (1.55m) Wt 178 lb (80.7kg) SpO2 100% BMI 33.65 kg/(m^2). Diagnostic tests reviewed for today's visit: Lab Value Units Date High Low HB No results within date range. HCT No results within date range. WBC No results within date range. PLT No results within date range. NA No results within date range. K No results within date range. GLUC No results within date range. BUN No results within date range. CREAT No results within date range. PTSEC No results within date range. INR No results within date range. APTT No results within date range. ALT 26 U/L 02/18/2022 38 7 AST 34 U/L 02/18/2022 35 13 TBILI 0.3 mg/dL 02/18/2022 1.3 0.2 TSH No results within date range. Lab Value Units Date High Low HCGQT No results within date range. UHCG No results within date range. HCG, BODY* No results within date range. Lab Value Units Date High Low ABORHD No results within date range. ABSCREEN No results within date range. No results found for: HBA1C No results found for this or any previous visit (from the past 8760 hour(s)). No results found for this or any previous visit (from the past 92807 hour(s)). Assessment Migraine without aura and without status migrainosus, not intractable Assessment: Currently stable on Rx. Takes Fiorcet and Imitrex PRN. Acquired hypothyroidism Assessment: Compliant with Rx. TSH WNL 07/2021. Anxiety and depression Assessment: Currently stable on Rx. Fibromyalgia Assessment: Generalized joint pain, takes Tramadol and [place] PRN. Levoscoliosis of thoracic spine Assessment: Noted on 2021 imaging. Patient denies any significant pain or issues. Gastroesophageal reflux disease with esophagitis Assessment: s/p aditi fundoplication in 2010. Recent regurgitation with hernia. Taking daily Rx. Dysphagia Assessment: s/p EGD with dilation around 01/2022. Some improvement in symptoms. Irritable colon Assessment: Alternating constipation and diarrhea, more recently diarrhea. No current Rx. Obesity (BMI 30-39.9) Assessment: Body mass index is 33.63 kg/m . [place] Activity Status Index: METS: Climb a flight of stairs or walk up a hill (5.50 METs) DASI Score: 5.5 Patient denies any chest pain or undue shortness of breath with the above physical activity. Clinical Frailty Scale: 3. Well, with treated comorbid disease STOP-Bang Score: Often feels tired, fatigued, or sleepy during the daytime Patient over 50 years old Denies snoring loudly Has not been observed to stop breathing or choking/gasping during sleep Denies having high blood pressure BMI less than or equal to 35 kg/m^2 Does not have a large neck Non-male patient STOP-Bang Score: 2 [id number] Score: Age: 65-74 Sex: female CHF history: No Hypertension history: No Stroke/TIA/thromboembolism history: No Vascular disease history: No Diabetes history: No [id number] Score: 2 ARISCAT Score: Age: 51-80 Preoperative SpO2: >=96% Respiratory infection in the last month: No Preoperative anemia: No Surgical incision: upper abdominal Duration of surgery: <2 hrs Emergency procedure: No ARISCAT Score: 18 ASA Class: 2 ANESTHESIA FINDINGS: Intubation History: No history of difficult intubation. No abnormal airway history Significant Anesthesia Considerations: Has needed to stay over night for nausea/vomiting in the past potential postop nausea/vomiting potential slow emergence Airway History: No history of difficult airway No abnormal airway history I - PHYSICAL EVALUATION AIRWAY Patient intubated: No. Tracheostomy tube not present Mallampati: III. TM distance: >3 FB. Neck ROM: full ROM without neurological symptoms. Mouth opening: adequate. Short neck: no. Thick neck: no Alvarez present: no DENTAL Dental findings: missing tooth/teeth. Additional comments: Bridge. II - ANESTHESIA PLAN ASA Score: 2 Anesthetic Plan: general Beta Henry Monitoring Plan Post Procedure Analgesic Plan Prepared for Surgery: optimally prepared for surgery. CONSULTS: Patient does not require consults for optimization at this time Planned Anesthetic: general The Following Tests/Procedures Have Been Initiated: Orders Placed This Encounter denosumab (PROLIA) 60 mg/mL Si mg as directed. meclizine (ANTIVERT) 12.5 mg tab Sig: Take 1 tablet by mouth as needed. Instructions Given to Patient: Instructions located in the after visit summary. Patient given verbal and written preop instructions and voices comprehension and compliance. SIGNATURE: Keke Davis APRN.CNP PATIENT NAME: Tevin Villagomez DATE: May 21, 2022 TIME: 9:28 AM PAGER/CONTACT #: documented in this encounter[facility] Instructions* Patient Instructions* Keke Davis APRN.CNP - 05/21/2022 9:28 AM EST PATIENT PREOPERATIVE INSTRUCTIONS Christy Perez MD has scheduled you for your procedure at this surgery center: [facility]: [phone] -- [address] [address]. Please read below carefully for your personalized instructions. Arrival Time for Surgery: - The Surgery Center or hospital where you are having surgery will call the afternoon before surgery (or Thursday for Thursday surgery) with a scheduled arrival time. - If you have not heard by 4 pm, please contact the surgery center above. Please be aware that emergency situations arise, which may delay or change your surgical time. If this happens, we will notify you as soon as possible and regret any inconvenience. Dietary Restrictions: - Nothing to eat or drink after midnight except for a sip of water with approved medications. - Do not drink any alcohol after midnight the night before your surgery. Medications: Unless instructed differently below, stay on all of your medications until your surgery. Approved medications to take the morning of surgery with a sip of water: Nexium, Levothyroxine and Ativan - Please continue your current pain medications. (Tramadol, Fiorcet, [place]) If you start any new medications after today's visit, please contact the surgeon's office. Blood Thinning Medications: - Stop NSAIDS (Ibuprofen, Advil, Aleve, Motrin, Celebrex, Mobic, etc.) 7 days before surgery, as directed by your surgeon. - Stop Aspirin 7 days before surgery, as directed by your surgeon. - Stop Vitamin E, ALL multi-vitamins, herbals and dietary supplements 7 days before surgery. - You may take Tylenol (Acetaminophen) or any of your pain medications that do not contain aspirin or NSAIDS as needed. Important Reminders: - Candy, mints, and tobacco products are NOT permitted the morning of surgery. - Hearing aids, dentures and glasses may be worn the morning of surgery. - NO jewelry, body piercings, makeup, hairpins or contacts are to be worn the day of surgery. If you develop symptoms such as a fever, cold, or flu, or have other changes to your health within TWO DAYS of scheduled surgery or the morning of surgery, please contact the surgery center above. Personal Belongings: -Please have photo ID and insurance cards. -If you do not have a copy of advance directives on file with us, please bring a copy with you on the day of surgery. - Leave ALL valuables and money at home or with family members. For Outpatient Procedures: - YOU MUST HAVE A RESPONSIBLE EQUIPMENT OPERATING ENGINEER TAKE YOU HOME. A JEWELSMITH OR SOCIAL SCIENCE PROFESSOR CANNOT BE MADE A RESPONSIBLE EQUIPMENT OPERATING ENGINEER. - We recommend that a responsible person stays with you overnight to take care of you. - You cannot stay in a hotel alone after outpatient surgery. You will not be permitted to have yoursurgery, if you do not have someone to take care of you. If you already have an Advance Directive, please fax a copy to [phone] or email to for it to be added to your chart. If you do not have an Advance Directive, you can find the appropriate form and more information at [email or web address]. We recommend that youcomplete the Advance Directive form found on the website and bring it with you the day of your surgery. It can be witnessed and scanned into your chart that day. Keke Davis APRN.CNP documented in this encounter[facility] History and physical note * Christy Perez MD - 05/08/2022 9:42 AM EST New patient H&P PATIENT NAME: Tevin Villagomez Assessment ASSESSMENT/PLAN: (K43.2) Incisional hernia, without obstruction or gangrene (primary encounter diagnosis) Rimma presents with an incisional hernia. We discussed the risk of nonoperative management including incarceration and strangulation. We discussed proceeding with laparoscopic repair with mesh.Risks, benefits and alternatives of proceeding with laparoscopic hernia repair with mesh were discussed with risks to include but not limited to hemorrhage, infection, possibility of mesh complications,possibility of recurrence,possibility of intraabdominal organ injury,possibile conversion to open.Patient expressed understanding and wishes to proceed. Office Visit on 05/08/22 esomeprazole (NEXIUM) 40 mg capsule SUBJECTIVE CHIEF COMPLAINT: Patient presents with: Hernia Consult INTERVAL HISTORY OF PRESENT ILLNESS: Rimma is a 66-year-old female who presents with an incisionalhernia. This has been present for many years however over the last few months has become painful. It is worse when she is leaning over. She does report some diarrhea and nausea. She has had laparoscopic cholecystectomy as well as an open repair of a paraesophageal hernia. She presents today for surgical management. HISTORIES: PAST MEDICAL HISTORY Diagnosis Date Anxiety Cystourethrocele Fibromyalgia GERD (gastroesophageal reflux disease) s/p surgery now controlled with zantac, Dr. Ojeda Hiatal hernia Leiomyoma 04/22/2011 ESOPHAGUS, excised 04/22/2011 Migraine Neck pain cervicle fusion 03/05 Osteoarthritis ? RA Dr Lindsey mtx and irving Vaginal vault prolapse after hysterectomy PAST SURGICAL HISTORY Procedure Laterality Date ARTHROSCOPY KNEE DIAGNOSTIC W/WO SYNOVIAL BX SPX Right 2015 meniscus repair BREAST AUGMENTATION WITH IMPLANT 1991 Breast augmentation BUNIONECTOMY, LAPIDUS-TYPE Bilat. EGD 02/2016 Dr. Ojeda ESOPHAGOGASTRODUODENOSCOPY TRANSORAL DIAGNOSTIC 11/[address] Ojeda EXT HYSTERECTOMY,W/PARTIAL VAGINECTO benign causes PALOMO W/O FACETEC FORAMOT/DSC 06/23 VRT SGM CRV 02/2014 cervicle fusion LAPAROSCOPY SURG CHOLECYSTECTOMY 04/2011 Cholecystectomy, lap MAMMOTOME BIOPSY RIGHT 2013 ORTHOPEDICS SURGERY HX Right knee replacement ORTHOPEDICS SURGERY HX cervical fusion PAST SURGICAL HISTORY OF 2015 MOHS for basal cell on her back PAST SURGICAL HISTORY OF 03/2016 R TKA RPR PARAESOPH HIATAL HERNIA W/LAPT W/O MESH 04/22/2011 Laparotomy, Excision of esophageal leiomyoma and repair of esophageal wall, Esophagogastroscopy, Aditi fundoplication for Short esophagus, Type I hiatal hernia and Esophageal leiomyoma TONSILLECTOMY PRIMARY/SECONDARY <AGE 12 A CHILD Tonsillectomy ALLERGIES: Patient has no known allergies. MEDICATIONS: Current Outpatient Medications Medication Sig levothyroxine (SYNTHROID) 25 mcg tablet Take 25 mcg by mouth once daily. traMADol (ULTRAM) 50 mg tablet Take 50 mg by mouth as needed. sertraline (ZOLOFT) 50 mg tablet Take 1.5 tablets by mouth twice daily. SUMAtriptan (IMITREX) 100 mg tablet Take 1 tablet by mouth as needed. at onset of headache.May repeat after 2 hours. LORazepam (ATIVAN) 1 mg tablet Take 1 tablet by mouth every 8 hours. (Patient taking differently: Take 1 mg by mouth once daily.) zolpidem (AMBIEN) 5 mg tablet Take 1 tablet by mouth at bedtime as needed. promethazine (PHENERGAN) 25 mg tablet Take 1 tablet by mouth every 4 hours as needed for Nausea/Vomiting. esomeprazole (NEXIUM) 40 mg capsule Take 40 mg by mouth DAILY (6 AM). lansoprazole (PREVACID) 30 mg capsule Take 30 mg by mouth once daily. ranitidine (ZANTAC) 150 mg tablet Take 1 tablet by mouth twice daily. RABEprazole (ACIPHEX) 20 mg tablet Take 20 mg by mouth once daily. HYDROcodone-Acetaminophen (NORCO) 10-325 mg per tablet Take 1 tablet by mouth every 8 hours as needed for Pain. (Patient not taking: Reported on 03/14/2019 ) acetaminophen 325 mg-caffeine 40 mg-butalbital 50 mg (FIORICET) per tablet Take 1 tablet by mouth every 6 hours as needed. (Patient not taking: Reported on 03/14/2019 ) gabapentin (NEURONTIN) 600 mg tablet Take 1.5 tablets by mouth three times daily. (Patient not taking: Reported on 09/30/2021) No current facility-administered medications for this visit. FAMILY HISTORY Problem Relation Age of Onset Cancer Mother Lung at 72 y/o Psychiatry Mother nervous breakdown, had shock therapy Cancer Father Lung at 76 y/o Psychiatry Father had nervous breakdown, had shock therapy other (no colon cancer) Father other (no breast cancer) Father other (no diabetes) Father other (no cad) Father Psychiatry Brother Social History Tobacco Use Smoking status: Never Smokeless tobacco: Never Substance Use Topics Alcohol use: Yes Comment: rare 1x/year Drug use: No Reviewed and agreed with Review of Systems completed by the clinical staff. OBJECTIVE PHYSICAL EXAM: BP 129/82 Pulse 107 Temp 96.8 Ht 5' 1 (1.55m) Wt 178 lb 9.6 oz (81.0kg) BMI 33.76 kg/(m^2). General: Well developed, well-nourished, in no distress HEENT: Normocephalic, atraumatic. Extraocular movements intact. Sclera are nonicteric. Heart: Regular rate and rhythm, no murmur Lungs: Clear to auscultation, without wheezes Abdomen: Soft, non tender, positive bowel sounds, no masses, large upper abdominal hernia, reducible Rectal: Not evaluated Extremities: No edema Neurologic: Alert, oriented, and appropriate. DATA: Diagnostic tests reviewed for today's visit: CT scan from 2017 was reviewed with the patient: IMPRESSION: 1. Question tiny nonobstructing calcifications in the RIGHT kidney 2. Anterior abdominal wall hernia containing fat 3. There is moderate intrahepatic bile duct dilatation as well as prominence of common duct. Also dilatation of the pancreatic duct. No previous films for comparison 4. Small amount of patchy atelectasis or infiltrate RIGHT lung base posteriorly Christy Perez MD documented in this encounterAk[facility] Procedure note* Christy Perez MD - 05/08/2022 8:27 AM EST Anticipated Surgical Procedure/ CPT Code: laparoscopic incisional hernia repair - [id number] Anticipated Anesthetic: General Patient weight: Blood pressure 129/82, pulse 107, temperature 36 C (96.8 F), height 154.9 cm (5' 1), weight 81 kg (178 lb 9.6 oz). BMI: Body mass index is 33.75 kg/m . 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: Yes Pre Op Clearance: PAT Anticoagulation: No Diabetic: No Location: [place] Dx - [facility]al [facility] History of Present illness Narrative* Alaina Ray RN - 05/08/2022 8:14 AM EST GENERAL:No weight loss, No fevers, Fatigue HEENT:Negative for frequent or significant headaches, Wear glasses or contacts, No changes in hearing or vision, no nose bleeds or other nasal problems CARDIOVASCULAR: Negative for chest pain, Negative for leg swelling, Negative for palpitaions RESPIRATORY:Negative for cough, wheezing or shortness of breath. GASTROINTESTINAL: Negative for blood in stools, Negative for black stools, Negative for change in bowel habits, Loss of appetitie, Change in bowel movements, Nausea or vomiting, Frequent diarrhea, and Abdominal pain GENITOURINARY: No history of dysuria, frequency or incontinence. ENDOCRINE: Heat/cold intolerance SOLAR PANEL INSTALLER:Denies any concerns SOLAR PANEL INSTALLER: N/A MUSCULOSKELETAL: joint pain, weakness of muscles or joints, muscle pain or cramps, back pain NEUROLOGIC:Negative for focal numbness Negative for weakness Negative for headache Light headed or dizzy HEMATOLOGIC/LYMPHATIC/IMMUNOLOGIC:Negative for prolonged bleeding, bruising easily or swollen nodes. 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 Stress hyperglycemia 04/23/2011 04/23/2011 Tachycardia 04/23/2011 04/23/2011 DVT prophylaxis 04/23/2011 05/02/2011 Overview: 04/27/2011 The pt is on Heparin 5000 units SC daily and SCD for VTE prophylaxis. No signs or symptoms of DVT/PE. The patient is at moderate risk for VTE. Plan: - Continue ambulation . Discharge Planning 04/23/2011 05/02/2011 Overview: 04/27/2011 Pt is and lives in [place], [place]. At this time, we anticipate that the patient will be discharged home with no homecare needs. Atelectasis 04/22/2011 04/27/2011 Overview: 04/27/2011 left basilar atelectasis on chest xray 04/24 Plan: - Respiratory therapy - Encourage coughing and deep breathing - Acapella - Aggressive pulmonary hygiene. - Encourage progressive ambulaton. - repeat CXR am . Postoperative pain 04/22/2011 05/02/2011 Overview: 04/27/2011 Pt reports adequate pain control on current regimen Oxycodone and Motrin elixir. Currently has 3 abdominal ELI tubes in place. Plan: - oxycodone/motrin for homegoing . GERD (gastroesophageal reflux disease) 1 04/27/2011 Overview: 04/27/2011 POD 4 PMH of hiatal Hernia. Presents with 2 year hx of GERD worsening over the past 6 months. 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 Her symptoms have progressed over the last two years and worse in the last six months. She now is having poor control with her medications. She has undergone a laparoscopic cholecystectomy with no relief of her symptoms. She was admitted 04/22 and underwent 1) Laparotomy 2) Excision of esophageal leiomyoma and repair of esophageal wall 3) Esophagogastroscopy 4) Aditi fundoplication Plan: - full anti reflux diet - up and ambulating - GERD (gastroesophageal reflux disease) 03/13/2015 Overview: s/p surgery now controlled with zantac documented as of this encounter (statuses as of 05/08/2022) [facility] History of Past illness Narrative* Problem Noted Date Resolved Date Nausea and vomiting 10/04/2016 10/04/2016 Diarrhea 10/04/2016 10/04/2016 Abdominal pain 10/02/2016 10/04/2016 Migraine 04/23/2011 03/13/2015 Overview: 04/27/2011 PMH of Migraine headaches, 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 Stress hyperglycemia 04/23/2011 04/23/2011 Tachycardia 04/23/2011 04/23/2011 DVT prophylaxis 04/23/2011 05/02/2011 Overview: 04/27/2011 The pt is on Heparin 5000 units SC daily and SCD for VTE prophylaxis. No signs or symptoms of DVT/PE. The patient is at moderate risk for VTE. Plan: - Continue ambulation . Discharge Planning 04/23/2011 05/02/2011 Overview: 04/27/2011 Pt is and lives in [place], [place]. At this time, we anticipate that the patient will be discharged home with no homecare needs. Atelectasis 04/22/2011 04/27/2011 Overview: 04/27/2011 left basilar atelectasis on chest xray 04/24 Plan: - Respiratory therapy - Encourage coughing and deep breathing - Acapella - Aggressive pulmonary hygiene. - Encourage progressive ambulaton. - repeat CXR am . Postoperative pain 04/22/2011 05/02/2011 Overview: 04/27/2011 Pt reports adequate pain control on current regimen Oxycodone and Motrin elixir. Currently has 3 abdominal [address] tubes in place. Plan: - oxycodone/motrin for homegoing . GERD (gastroesophageal reflux disease) 1 04/27/2011 Overview: 04/27/2011 POD 4 PMH of hiatal Hernia. Presents with 2 year hx of GERD worsening over the past 6 months. 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 Her symptoms have progressed over the last two years and worse in the last six months. She now is having poor control with her medications. She has undergone a laparoscopic cholecystectomy with no relief of her symptoms. She was admitted 04/22 and underwent 1) Laparotomy 2) Excision of esophageal leiomyoma and repair of esophageal wall 3) Esophagogastroscopy 4) Aditi fundoplication Plan: - full anti reflux diet - up and ambulating - GERD (gastroesophageal reflux disease) 03/13/2015 Overview: s/p surgery now controlled with zantac documented as of this encounter (statuses as of 05/08/2022) [facility] of Past illness Narrative* Problem Noted Date Resolved Date Nausea and vomiting 10/04/2016 10/04/2016 Diarrhea 10/04/2016 10/04/2016 Abdominal pain 10/02/2016 10/04/2016 Migraine 04/23/2011 03/13/2015 Overview: 04/27/2011 PMH of Migraine headaches, 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 Stress hyperglycemia 04/23/2011 04/23/2011 Tachycardia 04/23/2011 04/23/2011 DVT prophylaxis 04/23/2011 05/02/2011 Overview: 04/27/2011 The pt is on Heparin 5000 units SC daily and SCD for VTE prophylaxis. No signs or symptoms of DVT/PE. The patient is at moderate risk for VTE. Plan: - Continue ambulation . Discharge Planning 04/23/2011 05/02/2011 Overview: 04/27/2011 Pt is and lives in [place], [place]. At this time, we anticipate that the patient will be discharged home with no homecare needs. Atelectasis 04/22/2011 04/27/2011 Overview: 04/27/2011 left basilar atelectasis on chest xray 04/24 Plan: - Respiratory therapy - Encourage coughing and deep breathing - Acapella - Aggressive pulmonary hygiene. - Encourage progressive ambulaton. - repeat CXR am . Postoperative pain 04/22/2011 05/02/2011 Overview: 04/27/2011 Pt reports adequate pain control on current regimen Oxycodone and Motrin elixir. Currently has 3 abdominal ELI tubes in place. Plan: - oxycodone/motrin for homegoing . GERD (gastroesophageal reflux disease) 1 04/27/2011 Overview: 04/27/2011 POD 4 PMH of hiatal Hernia. Presents with 2 year hx of GERD worsening over the past 6 months. 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 Her symptoms have progressed over the last two years and worse in the last six months. She now is having poor control with her medications. She has undergone a laparoscopic cholecystectomy with no relief of her symptoms. She was admitted 04/22 and underwent 1) Laparotomy 2) Excision of esophageal leiomyoma and repair of esophageal wall 3) Esophagogastroscopy 4) Aditi fundoplication Plan: - full anti reflux diet - up and ambulating - GERD (gastroesophageal reflux disease) 03/13/2015 Overview: s/p surgery now controlled with zantac Neck pain 05/21/2022 Overview: cervicle fusion 03/05 documented as of this encounter (statuses as of 05/21/2022) [facility] of Past illness Narrative* Problem Noted Date Resolved Date Nausea and vomiting 10/04/2016 10/04/2016 Diarrhea 10/04/2016 10/04/2016 Abdominal pain 10/02/2016 10/04/2016 Migraine 04/23/2011 03/13/2015 Overview: 04/27/2011 PMH of Migraine headaches, 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 Stress hyperglycemia 04/23/2011 04/23/2011 Tachycardia 04/23/2011 04/23/2011 DVT prophylaxis 04/23/2011 05/02/2011 Overview: 04/27/2011 The pt is on Heparin 5000 units SC daily and SCD for VTE prophylaxis. No signs or symptoms of DVT/PE. The patient is at moderate risk for VTE. Plan: - Continue ambulation . Discharge Planning 04/23/2011 05/02/2011 Overview: 04/27/2011 Pt is and lives in [place], [place]. At this time, we anticipate that the patient will be discharged home with no homecare needs. Atelectasis 04/22/2011 04/27/2011 Overview: 04/27/2011 left basilar atelectasis on chest xray 04/24 Plan: - Respiratory therapy - Encourage coughing and deep breathing - Acapella - Aggressive pulmonary hygiene. - Encourage progressive ambulaton. - repeat CXR am . Postoperative pain 04/22/2011 05/02/2011 Overview: 04/27/2011 Pt reports adequate pain control on current regimen Oxycodone and Motrin elixir. Currently has 3 abdominal [address] tubes in place. Plan: - oxycodone/motrin for homegoing . GERD (gastroesophageal reflux disease) 1 04/27/2011 Overview: 04/27/2011 POD 4 PMH of hiatal Hernia. Presents with 2 year hx of GERD worsening over the past 6 months. 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 Her symptoms have progressed over the last two years and worse in the last six months. She now is having poor control with her medications. She has undergone a laparoscopic cholecystectomy with no relief of her symptoms. She was admitted 04/22 and underwent 1) Laparotomy 2) Excision of esophageal leiomyoma and repair of esophageal wall 3) Esophagogastroscopy 4) Aditi fundoplication Plan: - full anti reflux diet - up and ambulating - GERD (gastroesophageal reflux disease) 03/13/2015 Overview: s/p surgery now controlled with zantac Neck pain 05/21/2022 Overview: cervicle fusion 03/05 documented as of this encounter (statuses as of 06/16/2022) [facility] illness Narrative* Problem Noted Date Resolved Date Nausea and vomiting 10/04/2016 10/04/2016 Diarrhea 10/04/2016 10/04/2016 Abdominal pain 10/02/2016 10/04/2016 Migraine 04/23/2011 03/13/2015 Overview: 04/27/2011 PMH of Migraine headaches, 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 Stress hyperglycemia 04/23/2011 04/23/2011 Tachycardia 04/23/2011 04/23/2011 DVT prophylaxis 04/23/2011 05/02/2011 Overview: 04/27/2011 The pt is on Heparin 5000 units SC daily and SCD for VTE prophylaxis. No signs or symptoms of DVT/PE. The patient is at moderate risk for VTE. Plan: - Continue ambulation . Discharge Planning 04/23/2011 05/02/2011 Overview: 04/27/2011 Pt is and lives in [place], [place]. At this time, we anticipate that the patient will be discharged home with no homecare needs. Atelectasis 04/22/2011 04/27/2011 Overview: 04/27/2011 left basilar atelectasis on chest xray 04/24 Plan: - Respiratory therapy - Encourage coughing and deep breathing - Acapella - Aggressive pulmonary hygiene. - Encourage progressive ambulaton. - repeat CXR am . Postoperative pain 04/22/2011 05/02/2011 Overview: 04/27/2011 Pt reports adequate pain control on current regimen Oxycodone and Motrin elixir. Currently has 3 abdominal [address] tubes in place. Plan: - oxycodone/motrin for homegoing . GERD (gastroesophageal reflux disease) 1 04/27/2011 Overview: 04/27/2011 POD 4 PMH of hiatal Hernia. Presents with 2 year hx of GERD worsening over the past 6 months. 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 Her symptoms have progressed over the last two years and worse in the last six months. She now is having poor control with her medications. She has undergone a laparoscopic cholecystectomy with no relief of her symptoms. She was admitted 04/22 and underwent 1) Laparotomy 2) Excision of esophageal leiomyoma and repair of esophageal wall 3) Esophagogastroscopy 4) Aditi fundoplication Plan: - full anti reflux diet - up and ambulating - GERD (gastroesophageal reflux disease) 03/13/2015 Overview: s/p surgery now controlled with zantac Neck pain 05/21/2022 Overview: cervicle fusion 03/05 documented as of this encounter (statuses as of 06/24/2022) [facility] Narrative* Problem Noted Date Resolved Date Nausea and vomiting 10/04/2016 10/04/2016 Diarrhea 10/04/2016 10/04/2016 Abdominal pain 10/02/2016 10/04/2016 Migraine 04/23/2011 03/13/2015 Overview: 04/27/2011 PMH of Migraine headaches, 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 Stress hyperglycemia 04/23/2011 04/23/2011 Tachycardia 04/23/2011 04/23/2011 DVT prophylaxis 04/23/2011 05/02/2011 Overview: 04/27/2011 The pt is on Heparin 5000 units SC daily and SCD for VTE prophylaxis. No signs or symptoms of DVT/PE. The patient is at moderate risk for VTE. Plan: - Continue ambulation . Discharge Planning 04/23/2011 05/02/2011 Overview: 04/27/2011 Pt is and lives in [place], [place]. At this time, we anticipate that the patient will be discharged home with no homecare needs. Atelectasis 04/22/2011 04/27/2011 Overview: 04/27/2011 left basilar atelectasis on chest xray 04/24 Plan: - Respiratory therapy - Encourage coughing and deep breathing - Acapella - Aggressive pulmonary hygiene. - Encourage progressive ambulaton. - repeat CXR am . Postoperative pain 04/22/2011 05/02/2011 Overview: 04/27/2011 Pt reports adequate pain control on current regimen Oxycodone and Motrin elixir. Currently has 3 abdominal [address] tubes in place. Plan: - oxycodone/motrin for homegoing . GERD (gastroesophageal reflux disease) 1 04/27/2011 Overview: 04/27/2011 POD 4 PMH of hiatal Hernia. Presents with 2 year hx of GERD worsening over the past 6 months. 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 Her symptoms have progressed over the last two years and worse in the last six months. She now is having poor control with her medications. She has undergone a laparoscopic cholecystectomy with no relief of her symptoms. She was admitted 04/22 and underwent 1) Laparotomy 2) Excision of esophageal leiomyoma and repair of esophageal wall 3) Esophagogastroscopy 4) Aditi fundoplication Plan: - full anti reflux diet - up and ambulating - GERD (gastroesophageal reflux disease) 03/13/2015 Overview: s/p surgery now controlled with zantac Neck pain 05/21/2022 Overview: cervicle fusion 03/05 documented as of this encounter (statuses as of 06/26/2022) [facility] Narrative* Problem Noted Date Resolved Date Nausea and vomiting 10/04/2016 10/04/2016 Diarrhea 10/04/2016 10/04/2016 Abdominal pain 10/02/2016 10/04/2016 Migraine 04/23/2011 03/13/2015 Overview: 04/27/2011 PMH of Migraine headaches, 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 Stress hyperglycemia 04/23/2011 04/23/2011 Tachycardia 04/23/2011 04/23/2011 DVT prophylaxis 04/23/2011 05/02/2011 Overview: 04/27/2011 The pt is on Heparin 5000 units SC daily and SCD for VTE prophylaxis. No signs or symptoms of DVT/PE. The patient is at moderate risk for VTE. Plan: - Continue ambulation . Discharge Planning 04/23/2011 05/02/2011 Overview: 04/27/2011 Pt is and lives in [place], [place]. At this time, we anticipate that the patient will be discharged home with no homecare needs. Atelectasis 04/22/2011 04/27/2011 Overview: 04/27/2011 left basilar atelectasis on chest xray 04/24 Plan: - Respiratory therapy - Encourage coughing and deep breathing - Acapella - Aggressive pulmonary hygiene. - Encourage progressive ambulaton. - repeat CXR am . Postoperative pain 04/22/2011 05/02/2011 Overview: 04/27/2011 Pt reports adequate pain control on current regimen Oxycodone and Motrin elixir. Currently has 3 abdominal [address] tubes in place. Plan: - oxycodone/motrin for homegoing . GERD (gastroesophageal reflux disease) 1 04/27/2011 Overview: 04/27/2011 POD 4 PMH of hiatal Hernia. Presents with 2 year hx of GERD worsening over the past 6 months. 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 Her symptoms have progressed over the last two years and worse in the last six months. She now is having poor control with her medications. She has undergone a laparoscopic cholecystectomy with no relief of her symptoms. She was admitted 04/22 and underwent 1) Laparotomy 2) Excision of esophageal leiomyoma and repair of esophageal wall 3) Esophagogastroscopy 4) Aditi fundoplication Plan: - full anti reflux diet - up and ambulating - GERD (gastroesophageal reflux disease) 03/13/2015 Overview: s/p surgery now controlled with zantac Neck pain 05/21/2022 Overview: cervicle fusion 03/05 documented as of this encounter (statuses as of 06/27/2022) [facility] Narrative* Problem Noted Date Resolved Date Nausea and vomiting 10/04/2016 10/04/2016 Diarrhea 10/04/2016 10/04/2016 Abdominal pain 10/02/2016 10/04/2016 Migraine 04/23/2011 03/13/2015 Overview: 04/27/2011 PMH of Migraine headaches, 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 Stress hyperglycemia 04/23/2011 04/23/2011 Tachycardia 04/23/2011 04/23/2011 DVT prophylaxis 04/23/2011 05/02/2011 Overview: 04/27/2011 The pt is on Heparin 5000 units SC daily and SCD for VTE prophylaxis. No signs or symptoms of DVT/PE. The patient is at moderate risk for VTE. Plan: - Continue ambulation . Discharge Planning 04/23/2011 05/02/2011 Overview: 04/27/2011 Pt is and lives in [place], [place]. At this time, we anticipate that the patient will be discharged home with no homecare needs. Atelectasis 04/22/2011 04/27/2011 Overview: 04/27/2011 left basilar atelectasis on chest xray 04/24 Plan: - Respiratory therapy - Encourage coughing and deep breathing - Acapella - Aggressive pulmonary hygiene. - Encourage progressive ambulaton. - repeat CXR am . Postoperative pain 04/22/2011 05/02/2011 Overview: 04/27/2011 Pt reports adequate pain control on current regimen Oxycodone and Motrin elixir. Currently has 3 abdominal [address] tubes in place. Plan: - oxycodone/motrin for homegoing . GERD (gastroesophageal reflux disease) 1 04/27/2011 Overview: 04/27/2011 POD 4 PMH of hiatal Hernia. Presents with 2 year hx of GERD worsening over the past 6 months. 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 Her symptoms have progressed over the last two years and worse in the last six months. She now is having poor control with her medications. She has undergone a laparoscopic cholecystectomy with no relief of her symptoms. She was admitted 04/22 and underwent 1) Laparotomy 2) Excision of esophageal leiomyoma and repair of esophageal wall 3) Esophagogastroscopy 4) Aditi fundoplication Plan: - full anti reflux diet - up and ambulating - GERD (gastroesophageal reflux disease) 03/13/2015 Overview: s/p surgery now controlled with zantac Neck pain 05/21/2022 Overview: cervicle fusion 03/05 documented as of this encounter (statuses as of 06/28/2022) [facility] Diagnosis Onset Date Resolution Status B12 deficiency acute Dizziness acute Fatigue acute Anxiety disorder acute Fatigue acute Fibromyalgia acute Insomnia disorder acute Rib pain acute Chronic lower back pain [facility] Work Phone: Evaluation note* Diagnosis Incisional hernia, without obstruction or gangrene- Primary Incisional hernia without mention of obstruction or gangrene [facility] Diagnosis Incisional hernia, without obstruction or gangrene- Primary Incisional hernia without mention of obstruction or gangrene [facility] Diagnosis Preoperative examination- Primary Preoperative examination, unspecified Migraine without aura and without status migrainosus, not intractable Migraine without aura, without mention of intractable migraine without mention of status migrainosus Acquired hypothyroidism Unspecified hypothyroidism Anxiety and depression Dysthymic disorder Fibromyalgia Mylagia and myositis, unspecified Levoscoliosis of thoracic spine Gastroesophageal reflux disease with esophagitis, unspecified whether hemorrhage Dysphagia, unspecified type Irritable bowel syndrome with both constipation and diarrhea Obesity (BMI 30-39.9) Obesity, unspecified BMI 33.0-33.9,adult Body Mass Index 33.0-33.9, adult Incisional hernia, without obstruction or gangrene Incisional hernia without mention of obstruction or gangrene [facility] Diagnosis S/P hernia repair- Primary Other postprocedural status Incisional hernia, without obstruction or gangrene Incisional hernia without mention of obstruction or gangrene [facility] Diagnosis S/P hernia repair- Primary Other postprocedural status Incisional hernia, without obstruction or gangrene Incisional hernia without mention of obstruction or gangrene [facility] Diagnosis Wound drainage- Primary Open wound(s) (multiple) of unspecified site(s), without mention of complication S/P laparoscopic hernia repair Other postprocedural status [facility] Diagnosis S/P laparoscopic hernia repair- Primary Other postprocedural status [facility] Diagnosis Postprocedural intraabdominal abscess- Primary Encounter for preprocedural laboratory examination Pre-procedural laboratory examination S/P hernia repair Other postprocedural status [facility]* Diagnosis Infected wound- Primary Posttraumatic wound infection not elsewhere classified S/P laparoscopic hernia repair Other postprocedural status [facility]* Diagnosis Infected wound- Primary Posttraumatic wound infection not elsewhere classified S/P laparoscopic hernia repair Other postprocedural status [facility]* Diagnosis Onset Date Resolution Status Anxiety disorder acute Bilateral knee pain acute Depression acute Fibromyalgia acute Insomnia disorder acute Overactive bladder acute [facility] Work Phone: Evaluation note* Diagnosis Epigastric pain Abdominal pain, epigastric Nausea Nausea alone Status post hernia repair Other postprocedural status documented in this encounter [facility] note* Diagnosis Nausea- Primary Nausea alone Status post hernia repair Other postprocedural status [facility]* Diagnosis Onset Date Resolution Status Anxiety disorder acute Cellulitis of left hand acut e Insomnia disorder acute Osteoarthritis acute Anxiety disorder acute Depression acute Hypothyroid acute Insomnia disorder acute Memory deficit acute Nonhealing nonsurgical wound acute Vitamin B deficiency acute [facility] Work Phone: Evaluation note* Diagnosis Onset Date Resolution Status Anxiety disorder acute Cellulitis of left hand acut e Insomnia disorder acute Osteoarthritis acute Anxiety disorder acute Depression acute Hypothyroid acute Insomnia disorder acute Memory deficit acute Nonhealing nonsurgical wound acute Vitamin B deficiency acute Cystitis acute Dysuria acute [facility] Work Phone: Evaluation note* Diagnosis Onset Date Resolution Status Anxiety disorder acute Depression acute Hypothyroid acute Insomnia disorder acute Memory deficit acute Nonhealing nonsurgical wound acute Vitamin B deficiency acute Cystitis acute Dysuria acute Memory deficit acute Nonhealing nonsurgical wound acute [facility] Work Phone: Evaluation note* Diagnosis Abnormal finding on breast imaging- Primary Other (abnormal) findings on radiological examination of breast [facility]* Diagnosis Abnormal finding on breast imaging Other (abnormal) findings on radiological examination of breast documented in this encounter [facility] note* Diagnosis Pelvic organ prolapse quantification stage 2 cystocele- Primary Mixed stress and urge urinary incontinence Mixed incontinence urge and stress (male)(female) Dysuria Abnormal urinalysis Other nonspecific finding on examination of urine Recurrent UTI Urinary tract infection, site not specified Vaginal atrophy Postmenopausal atrophic vaginitis documented in this encounter [facility] note* Diagnosis Preoperative examination- Primary Preoperative examination, unspecified Migraine without aura and without status migrainosus, not intractable Migraine without aura, without mention of intractable migraine without mention of status migrainosus Acquired hypothyroidism Unspecified hypothyroidism Anxiety and depression Dysthymic disorder Fibromyalgia Mylagia and myositis, unspecified Levoscoliosis of thoracic spine Gastroesophageal reflux disease with esophagitis, unspecified whether hemorrhage Dysphagia, unspecified type Irritable bowel syndrome with both constipation and diarrhea Obesity (BMI 30-39.9) Obesity, unspecified BMI 33.0-33.9,adult Body Mass Index 33.0-33.9, adult Microscopic hematuria- Primary Dysuria Abnormal urinalysis Other nonspecific finding on examination of urine Recurrent UTI Urinary tract infection, site not specified Hematuria, unspecified type [facility]* Diagnosis Preoperative examination- Primary Preoperative examination, unspecified Migraine without aura and without status migrainosus, not intractable Migraine without aura, without mention of intractable migraine without mention of status migrainosus Acquired hypothyroidism Unspecified hypothyroidism Anxiety and depression Dysthymic disorder Fibromyalgia Mylagia and myositis, unspecified Levoscoliosis of thoracic spine Gastroesophageal reflux disease with esophagitis, unspecified whether hemorrhage Dysphagia, unspecified type Irritable bowel syndrome with both constipation and diarrhea Obesity (BMI 30-39.9) Obesity, unspecified BMI 33.0-33.9,adult Body Mass Index 33.0-33.9, adult Urinary frequency- Primary Stress incontinence in female Female stress incontinence Abnormal urinalysis Other nonspecific finding on examination of urine documented in this encounter [facility] note* Diagnosis Preoperative examination- Primary Preoperative examination, unspecified Migraine without aura and without status migrainosus, not intractable Migraine without aura, without mention of intractable migraine without mention of status migrainosus Acquired hypothyroidism Unspecified hypothyroidism Anxiety and depression Dysthymic disorder Fibromyalgia Mylagia and myositis, unspecified Levoscoliosis of thoracic spine Gastroesophageal reflux disease with esophagitis, unspecified whether hemorrhage Dysphagia, unspecified type Irritable bowel syndrome with both constipation and diarrhea Obesity (BMI 30-39.9) Obesity, unspecified BMI 33.0-33.9,adult Body Mass Index 33.0-33.9, adult Recurrent UTI- Primary Urinary tract infection, site not specified [facility]* Diagnosis Preoperative examination- Primary Preoperative examination, unspecified Migraine without aura and without status migrainosus, not intractable Migraine without aura, without mention of intractable migraine without mention of status migrainosus Acquired hypothyroidism Unspecified hypothyroidism Anxiety and depression Dysthymic disorder Fibromyalgia Mylagia and myositis, unspecified Levoscoliosis of thoracic spine Gastroesophageal reflux disease with esophagitis, unspecified whether hemorrhage Dysphagia, unspecified type Irritable bowel syndrome with both constipation and diarrhea Obesity (BMI 30-39.9) Obesity, unspecified BMI 33.0-33.9,adult Body Mass Index 33.0-33.9, adult Urinary frequency- Primary OAB (overactive bladder) Hypertonicity of bladder * Assessment & Plan Note - Sixto Knowles MD - 08/01/2024 11:23 AM ESTAssociated Problem(s): OAB (overactive bladder) We discussed the patient's options for her OAB which include expectant management, behavioral modification and bladder training, pelvic floor rehabilitation, anticholinergic medications, Myrbetriq (aB3 adrenergic agonist), or a combination of these treatment modalities. We also discussed the option of sacroneuromodulation (Interstim), UrgentPC, REVI or Intravesical Botox. We discussed the importance of decreasing/eliminating her caffeine intake to help improve her urgency and frequency. The patient was counseled on the importance of kegel exercises for urge control. She was given a handout on OAB, bladder training and pelvic floor exercises. We will make a final plan once we have the results of her bladder testing. Likely proceed with Botox. Orders: URODYNAMICS [facility] CYST[facility]COPY [facility]; [facility] Preoperative examination- Primary Preoperative examination, unspecified Migraine without aura and without status migrainosus, not intractable Migraine without aura, without mention of intractable migraine without mention of status migrainosus Acquired hypothyroidism Unspecified hypothyroidism Anxiety and depression Dysthymic disorder Fibromyalgia Mylagia and myositis, unspecified Levoscoliosis of thoracic spine Gastroesophageal reflux disease with esophagitis, unspecified whether hemorrhage Dysphagia, unspecified type Irritable bowel syndrome with both constipation and diarrhea Obesity (BMI 30-39.9) Obesity, unspecified BMI 33.0-33.9,adult Body Mass Index 33.0-33.9, adult Urinary frequency- Primary OAB (overactive bladder) Hypertonicity of bladder OAB (overactive bladder)- Primary Hypertonicity of bladder Stress incontinence in female Female stress incontinence Recurrent UTI Urinary tract infection, site not specified Encounter for urine test Laboratory examination, unspecified * Assessment & Plan Note - Sixto Knowles MD - 08/08/2024 2:36 PM ESTAssociated Problem(s): OAB (overactive bladder) We discussed the patient's options for her OAB which include expectant management, behavioral modification and bladder training, pelvic floor rehabilitation, anticholinergic medications, Myrbetriq (aB3 adrenergic agonist), or a combination of these treatment modalities. We also discussed the option of sacroneuromodulation (Interstim), UrgentPC, REVI or Intravesical Botox. We discussed the importance of decreasing/eliminating her caffeine intake to help improve her urgency and frequency. The patient was counseled on the importance of kegel exercises for urge control. She was given a handout on OAB, bladder training and pelvic floor exercises. We discussed the risks of Botox including recurrent bladder infections, voiding dysfunction and theneed for clean intermittent self-catheterization. There is also a small risk of bladder or bowel injury. Patient has met [facility] medical necessity criteria because she has had symptoms for several years, and it has impacted her quality of life. She has not responded to medication (including oxybutynin), conservative treatment (kegel, diet modification, pelvic muscle exercises, fluid management, timed voids, bladder retraining), other surgical produres. For these reasons she is a good candidate for botox. We will plan to do an intravesical botox injection. She was given educational information on botox.100 units. Orders: CYSTOSCOPY [facility]; Future onabotulinum toxin type A 100 Units injection (BOTOX) * Assessment & Plan Note - Sixto Knowles MD - 08/08/2024 2:36 PM ESTAssociated Problem(s): Stress incontinence in female We discussed the patient's options for treatment of stress urinary incontinence which include expectant management, pelvic floor physical therapy, pessary or surgery (i.e. midurethral sling or intraurethral bulking agent). Expectant management for now. Consider bulkamid or sling if patient still has bothersome stress urinary incontinence once urge urinary incontinence is treated. [facility] Preoperative examination- Primary Preoperative examination, unspecified Migraine without aura and without status migrainosus, not intractable Migraine without aura, without mention of intractable migraine without mention of status migrainosus Acquired hypothyroidism Unspecified hypothyroidism Anxiety and depression Dysthymic disorder Fibromyalgia Mylagia and myositis, unspecified Levoscoliosis of thoracic spine Gastroesophageal reflux disease with esophagitis, unspecified whether hemorrhage Dysphagia, unspecified type Irritable bowel syndrome with both constipation and diarrhea Obesity (BMI 30-39.9) Obesity, unspecified BMI 33.0-33.9,adult Body Mass Index 33.0-33.9, adult Urinary frequency- Primary OAB (overactive bladder) Hypertonicity of bladder OAB (overactive bladder)- Primary Hypertonicity of bladder Stress incontinence in female Female stress incontinence Recurrent UTI Urinary tract infection, site not specified Encounter for urine test Laboratory examination, unspecified RLQ abdominal pain- Primary Abdominal pain, right lower quadrant Encounter for preprocedural laboratory examination Pre-procedural laboratory examination Nausea Nausea alone [facility] Diagnosis Preoperative examination- Primary Preoperative examination, unspecified Migraine without aura and without status migrainosus, not intractable Migraine without aura, without mention of intractable migraine without mention of status migrainosus Acquired hypothyroidism Unspecified hypothyroidism Anxiety and depression Dysthymic disorder Fibromyalgia Mylagia and myositis, unspecified Levoscoliosis of thoracic spine Gastroesophageal reflux disease with esophagitis, unspecified whether hemorrhage Dysphagia, unspecified type Irritable bowel syndrome with both constipation and diarrhea Obesity (BMI 30-39.9) Obesity, unspecified BMI 33.0-33.9,adult Body Mass Index 33.0-33.9, adult Urinary frequency- Primary OAB (overactive bladder) Hypertonicity of bladder OAB (overactive bladder)- Primary Hypertonicity of bladder Stress incontinence in female Female stress incontinence Recurrent UTI Urinary tract infection, site not specified Encounter for urine test Laboratory examination, unspecified OAB (overactive bladder) Hypertonicity of bladder [facility] Diagnosis Preoperative examination- Primary Preoperative examination, unspecified Migraine without aura and without status migrainosus, not intractable Migraine without aura, without mention of intractable migraine without mention of status migrainosus Acquired hypothyroidism Unspecified hypothyroidism Anxiety and depression Dysthymic disorder Fibromyalgia Mylagia and myositis, unspecified Levoscoliosis of thoracic spine Gastroesophageal reflux disease with esophagitis, unspecified whether hemorrhage Dysphagia, unspecified type Irritable bowel syndrome with both constipation and diarrhea Obesity (BMI 30-39.9) Obesity, unspecified BMI 33.0-33.9,adult Body Mass Index 33.0-33.9, adult Urinary frequency- Primary OAB (overactive bladder) Hypertonicity of bladder OAB (overactive bladder)- Primary Hypertonicity of bladder Stress incontinence in female Female stress incontinence Recurrent UTI Urinary tract infection, site not specified Encounter for urine test Laboratory examination, unspecified RLQ abdominal pain Abdominal pain, right lower quadrant documented in this encounter [facility] note* Diagnosis Preoperative examination- Primary Preoperative examination, unspecified Migraine without aura and without status migrainosus, not intractable Migraine without aura, without mention of intractable migraine without mention of status migrainosus Acquired hypothyroidism Unspecified hypothyroidism Anxiety and depression Dysthymic disorder Fibromyalgia Mylagia and myositis, unspecified Levoscoliosis of thoracic spine Gastroesophageal reflux disease with esophagitis, unspecified whether hemorrhage Dysphagia, unspecified type Irritable bowel syndrome with both constipation and diarrhea Obesity (BMI 30-39.9) Obesity, unspecified BMI 33.0-33.9,adult Body Mass Index 33.0-33.9, adult Urinary frequency- Primary OAB (overactive bladder) Hypertonicity of bladder OAB (overactive bladder)- Primary Hypertonicity of bladder Stress incontinence in female Female stress incontinence Recurrent UTI Urinary tract infection, site not specified Encounter for urine test Laboratory examination, unspecified Pancreatic duct dilated (HCC)- Primary Other specified disease of pancreas documented in this encounter [facility] note* Diagnosis Preoperative examination- Primary Preoperative examination, unspecified Migraine without aura and without status migrainosus, not intractable Migraine without aura, without mention of intractable migraine without mention of status migrainosus Acquired hypothyroidism Unspecified hypothyroidism Anxiety and depression Dysthymic disorder Fibromyalgia Mylagia and myositis, unspecified Levoscoliosis of thoracic spine Gastroesophageal reflux disease with esophagitis, unspecified whether hemorrhage Dysphagia, unspecified type Irritable bowel syndrome with both constipation and diarrhea Obesity (BMI 30-39.9) Obesity, unspecified BMI 33.0-33.9,adult Body Mass Index 33.0-33.9, adult Urinary frequency- Primary OAB (overactive bladder) Hypertonicity of bladder OAB (overactive bladder)- Primary Hypertonicity of bladder Stress incontinence in female Female stress incontinence Recurrent UTI Urinary tract infection, site not specified Encounter for urine test Laboratory examination, unspecified Pancreatic duct dilated (HCC)- Primary Other specified disease of pancreas documented in this encounter [facility] note* Diagnosis Preoperative examination- Primary Preoperative examination, unspecified Migraine without aura and without status migrainosus, not intractable Migraine without aura, without mention of intractable migraine without mention of status migrainosus Acquired hypothyroidism Unspecified hypothyroidism Anxiety and depression Dysthymic disorder Fibromyalgia Mylagia and myositis, unspecified Levoscoliosis of thoracic spine Gastroesophageal reflux disease with esophagitis, unspecified whether hemorrhage Dysphagia, unspecified type Irritable bowel syndrome with both constipation and diarrhea Obesity (BMI 30-39.9) Obesity, unspecified BMI 33.0-33.9,adult Body Mass Index 33.0-33.9, adult Urinary frequency- Primary OAB (overactive bladder) Hypertonicity of bladder OAB (overactive bladder)- Primary Hypertonicity of bladder Stress incontinence in female Female stress incontinence Recurrent UTI Urinary tract infection, site not specified Encounter for urine test Laboratory examination, unspecified Right groin pain Abdominal pain, right lower quadrant [facility]* Diagnosis Preoperative examination- Primary Preoperative examination, unspecified Migraine without aura and without status migrainosus, not intractable Migraine without aura, without mention of intractable migraine without mention of status migrainosus Acquired hypothyroidism Unspecified hypothyroidism Anxiety and depression Dysthymic disorder Fibromyalgia Mylagia and myositis, unspecified Levoscoliosis of thoracic spine Gastroesophageal reflux disease with esophagitis, unspecified whether hemorrhage Dysphagia, unspecified type Irritable bowel syndrome with both constipation and diarrhea Obesity (BMI 30-39.9) Obesity, unspecified BMI 33.0-33.9,adult Body Mass Index 33.0-33.9, adult Urinary frequency- Primary OAB (overactive bladder) Hypertonicity of bladder OAB (overactive bladder)- Primary Hypertonicity of bladder Stress incontinence in female Female stress incontinence Recurrent UTI Urinary tract infection, site not specified Encounter for urine test Laboratory examination, unspecified Umbilical hernia without obstruction or gangrene Umbilical hernia without mention of obstruction or gangrene Dilation of pancreatic duct (HCC) Other specified disease of pancreas Nausea Nausea alone Heartburn [facility] Diagnosis Preoperative examination- Primary Preoperative examination, unspecified Migraine without aura and without status migrainosus, not intractable Migraine without aura, without mention of intractable migraine without mention of status migrainosus Acquired hypothyroidism Unspecified hypothyroidism Anxiety and depression Dysthymic disorder Fibromyalgia Mylagia and myositis, unspecified Levoscoliosis of thoracic spine Gastroesophageal reflux disease with esophagitis, unspecified whether hemorrhage Dysphagia, unspecified type Irritable bowel syndrome with both constipation and diarrhea Obesity (BMI 30-39.9) Obesity, unspecified BMI 33.0-33.9,adult Body Mass Index 33.0-33.9, adult Urinary frequency- Primary OAB (overactive bladder) Hypertonicity of bladder OAB (overactive bladder)- Primary Hypertonicity of bladder Stress incontinence in female Female stress incontinence Recurrent UTI Urinary tract infection, site not specified Encounter for urine test Laboratory examination, unspecified Heartburn- Primary documented in this encounter [facility] Plan of care note* Visit Details Visit Type -SN SOC Discipline -Snf Problems Problem Description Start Date Status Goals Interve ntions Medication Education Disciplines: Skilled Services 07/04/2022 Active 1 goal linked to scheduled/documen maikol intervention 1 goal intervention scheduled/document ed in this visit Sepsis Disciplines: Skilled Services 07/04/2022 Active 1 goal linked to scheduled/documen maikol intervention 1 goal intervention scheduled/document ed in this visit Physician Specific Parameters Disciplines: Skilled Services 07/04/2022 Active 1 goal linked to scheduled/documen maikol intervention 1 goal intervention scheduled/document ed in this visit Risk for Falls Disciplines: Skilled Services 07/04/2022 Active 1 goal linked to scheduled/documen maikol intervention 1 goal intervention scheduled/document ed in this visit Pain Disciplines: Skilled Services 07/04/2022 Active 1 goal linked to scheduled/documen maikol intervention 1 goal intervention scheduled/document ed in this visit Nutrition/Hydration Disciplines: Skilled Services 07/04/2022 Active 1 goal linked to scheduled/documen maikol intervention 1 goal intervention scheduled/document ed in this visit Advance Directives Disciplines: Skilled Services 07/04/2022 Active 1 goal linked to scheduled/documen maikol intervention 1 goal intervention scheduled/document ed in this visit SN Integumentary/Wound s Disciplines: SN 07/04/2022 Active 1 goal linked to scheduled/documen maikol intervention 4 goal interventions scheduled/document ed in this visit SN Learning Assessment Disciplines: SN 07/04/2022 Active 1 goal linked to scheduled/documen maikol intervention 1 goal intervention scheduled/document ed in this visit SN Muscuoskeltal Disease Process Disciplines: SN 07/04/2022 Active 1 goal linked to scheduled/documen maikol intervention 1 goal intervention scheduled/document ed in this visit SN Genitourinary disease process Disciplines: SN 07/04/2022 Active 1 goal linked to scheduled/documen maikol intervention 1 goal intervention scheduled/document ed in this visit Goals Goal Associated Problem Outcome Goal Met? Visit Notes Patient/caregiver will demonstrate ability to obtain, store, identify and administer ordered medications, keep accurate medication list in home, and adhere to medication schedule Description: Patient/caregiver will demonstrate ability to obtain, store, identify and administer ordered medications, keep accurate medication list in home, and adhere to medication schedule by 09/01/22. Medication Education No Patient/caregiver will be able to identify and report symptoms of sepsis Description: Patient/caregiver will be able to identify signs/symptoms of sepsis infection and will verbalize actions to take if suspected by 09/01/22. Sepsis No Patient to maintain parameters within physician-specified ranges throughout certification period Physician Specific Parameters No Manage Risk for falls Description: Patient/caregiver will verbalize knowledge of individualized fall prevention strategies by 09/01/22. Risk for Falls No Manage Pain Description: Patient/caregiver will verbalize knowledge and understanding of appropriate techniques to control pain, including pain medication and non-pharmacological techniques. Patient will verbalize or demonstrate an acceptable level of pain as evidenced by a pain score of 0-3/10 and improvement in ability to perform activities of daily living to be achieved by 09/01/22. Pain No Manage Nutrition/Hydration Description: Patient/caregiver will verbalize/demonstrate knowledge of prescribed diet and/or healthy nutrition to be achieved by 09/01/22. Nutrition/Hydration No Patient/caregiver will make healthcare providers aware of and any changes to Advance Directives throughout certification period Advance Directives No Patient/Caregiver will have improved healing and be free of signs and symptoms of complications Description: Patient/caregiver will verbalize management strategies to promote wound healing & prevent complications as evidenced by improved healing & no complications by 09/01/22. SN Integumentary/Wounds No Demonstrate understanding of education Description: Patient and/or caregiver will verbalize understanding of educational instruction provided throughout certification period. SN Learning Assessment No Patient will verbalize understanding of Musculoskeletal disease process, fpc effects and effective management strategies Description: Patient will verbalize understanding of Musculoskeletal disease process, fpc effects and effective management strategies by 08/04/22. SN Muscuoskeltal Disease Process No Patient/Caregiver will verbalize understanding and demonstrate improved management of genitourinary disease/condition. Description: Patient/Caregiver will state understanding of genitourinary disease/condition and be able to teach back management strategies by 08/04/22. SN Genitourinary disease process No Interventions Intervention Associated Problem/Goal Status Variance Visit Notes Medication Education Description: Evaluate/instruct patient/caregiver on obtaining, storing, identifying and administering ordered medications as well as keeping accurate medication list in the home and adhereing to medication schedule Problem:Medication Education Goal:Patient/caregive r will demonstrate ability to obtain, store, identify and administer ordered medications, keep accurate medication list in home, and adhere to medication schedule Completed Patient instructed on importance of keeping accurate medication list in home, adhering to medication schedule and proper storage of medications. Risk of Sepsis Description: Patient is at risk for sepsis. Monitor closely for s/s of sepsis. Problem:Sepsis Goal:Patient/caregive r will be able to identify and report symptoms of sepsis Completed SPO2 Description: Notify Dr. Glynn if pulse ox is <92% at rest. Problem:Physician Specific Parameters Goal:Patient to maintain parameters within physician-specified ranges throughout certification period Completed Instruct on individual fall risk factors and strategies to prevent falls and injuries caused by falls. Problem:Risk for Falls Goal:Manage Risk for falls Completed SN: Patient instructed on Eliminating Environmental Hazards: Keep pathways clear, Keep pets out of pathways, Remove unsafe rugs, Wear supportive shoes or non-skid socks and Keep frequently used items within reach Instruct on pain and instruct on strategies to control pain Problem:Pain Goal:Manage Pain Completed patient instructed on techniques to control pain including Pharmacological measures and Non-Pharmacological measures; rest, positioning/elevation and mobility/therapeutic exercise. Define patient s appetite/hydration status and implement strategies to improve compliance with prescribed diet and/or healthy nutrition. Problem:Nutrition/Hyd ration Goal:Manage Nutrition/Hydration Completed instructed patient on implementing strategies to comply with prescribed diet, healthy nutrition and adequate hydration Determine patient's Advance Directive Status Description: Patient does have advance directives. Patient's Advance Directives determined to be available in Home Healthcare DPOA and Living Will. Problem:Advance Directives Goal:Patient/caregive r will make healthcare providers aware of and any changes to Advance Directives throughout certification period Completed Discussed Advance Directives with Patient and/or Caregiver. Referred patient to Home Care handbook for further information on Healthcare DPOA & Living Will. Wound VAC: Instruct on maintenance of Negative Pressure Wound Therapy Machine Problem:SN Integumentary/Wounds Goal:Patient/Caregive r will have improved healing and be free of signs and symptoms of complications Completed patient instructed on the following: how to turn the machine on and off, how to charge the battery, how to change the canister, proper storage and cleaning of supplies and disposal of soiled dressings. Wound Vac: Perform Negative Pressure Wound Therapy Description: Location: abdomen Frequency: 3 times a week and PRN Order: Cleanse elver-wound and wound with normal saline Skin prep to elver-wound as needed. Apply adaptive gauze/contact layer to wound bed as clinically indicated. Pack wound with black foam. Cover foam with transparent film drape and attach trac pad to film. Negative pressure to be set at pressure: 125 mmHg Continuous. Instruct on wet to dry dressing change for wound vac malfunction and to call [facility] to report. Measure wounds each dressing change. Problem:SN Integumentary/Wounds Goal:Patient/Caregive r will have improved healing and be free of signs and symptoms of complications Completed Completed. Patient did tolerate well. Patient and Caregiver instructed on removing wound vac in case of malfunction, applying wet to dry dressing, and calling [facility] Triage department to report wound vac off. Verified wet to dry dressing supplies in home. Instruct patient/caregiver healing process and management measures to promote healing and avoid complications Problem:SN Integumentary/Wounds Goal:Patient/Caregive r will have improved healing and be free of signs and symptoms of complications Completed patient instructed on the following: healing process, signs and symptoms of infection and when to report symptoms. Instruct Patient/Caregiver on wound/incision care procedure as ordered by physician Problem:SN Integumentary/Wounds Goal:Patient/Caregive r will have improved healing and be free of signs and symptoms of complications Completed patient instructed on wound care as ordered by Physician. Instruct and educate on knowledge deficits Problem:SN Learning Assessment Goal:Demonstrate understanding of education Completed patient verbalize and/or demonstrate understanding of nursing education completed today. Education methods include: teach back. Further education required to improve knowledge and compliance with fall prevention/home safety strategies, genitourinary care management, incision/wound care management, medication management, nutrition and pain management. Assess/Instruct Patient/Caregiver understanding of Musculoskeletal disease process Description: Assess patient/caregiver understanding of musculoskeletal disease process osteoarthritis, vermin exterminator effects and effective management strategies. Problem:SN Muscuoskeltal Disease Process Goal:Patient will verbalize understanding of Musculoskeletal disease process, vermin exterminator effects and effective management strategies Completed Patient instructed on musculoskeletal disease process including: fpc effects and signs and symptoms of exacerbation of disease and actions to take should they occur. Incontinence- Instruct Patient/Caregiver on measures to manage urinary incontinence Problem:SN Genitourinary disease process Goal:Patient/Caregive r will verbalize understanding and demonstrate improved management of genitourinary disease/condition. Completed patient instructed on measures to manage Urinary incontinence including: use of pads/protective garments and skin care after incontinence episode. documented in this encounter [facility]'s home Plan of care note* Visit Details Visit Type -SN ROUTINE Discipline -Snf Problems Problem Description Start Date Status Goals Interve ntions Medication Education Disciplines: Skilled Services 07/04/2022 Active 1 goal linked to scheduled/documen maikol intervention 1 goal intervention scheduled/document ed in this visit Sepsis Disciplines: Skilled Services 07/04/2022 Active 1 goal linked to scheduled/documen maikol intervention 1 goal intervention scheduled/document ed in this visit Physician Specific Parameters Disciplines: Skilled Services 07/04/2022 Active 1 goal linked to scheduled/documen maikol intervention 1 goal intervention scheduled/document ed in this visit Risk for Falls Disciplines: Skilled Services 07/04/2022 Active 1 goal linked to scheduled/documen maikol intervention 1 goal intervention scheduled/document ed in this visit Pain Disciplines: Skilled Services 07/04/2022 Active 1 goal linked to scheduled/documen maikol intervention 1 goal intervention scheduled/document ed in this visit Nutrition/Hydration Disciplines: Skilled Services 07/04/2022 Active 1 goal linked to scheduled/documen maikol intervention 1 goal intervention scheduled/document ed in this visit SN Integumentary/Wound s Disciplines: SN 07/04/2022 Active 1 goal linked to scheduled/documen maikol intervention 4 goal interventions scheduled/document ed in this visit SN Muscuoskeltal Disease Process Disciplines: SN 07/04/2022 Active 1 goal linked to scheduled/documen maikol intervention 1 goal intervention scheduled/document ed in this visit SN Genitourinary disease process Disciplines: SN 07/04/2022 Active 1 goal linked to scheduled/documen maikol intervention 1 goal intervention scheduled/document ed in this visit Goals Goal Associated Problem Outcome Goal Met? Visit Notes Patient/caregiver will demonstrate ability to obtain, store, identify and administer ordered medications, keep accurate medication list in home, and adhere to medication schedule Description: Patient/caregiver will demonstrate ability to obtain, store, identify and administer ordered medications, keep accurate medication list in home, and adhere to medication schedule by 09/01/22. Medication Education No Patient/caregiver will be able to identify and report symptoms of sepsis Description: Patient/caregiver will be able to identify signs/symptoms of sepsis infection and will verbalize actions to take if suspected by 09/01/22. Sepsis No Patient to maintain parameters within physician-specified ranges throughout certification period Physician Specific Parameters No Manage Risk for falls Description: Patient/caregiver will verbalize knowledge of individualized fall prevention strategies by 09/01/22. Risk for Falls No Manage Pain Description: Patient/caregiver will verbalize knowledge and understanding of appropriate techniques to control pain, including pain medication and non-pharmacological techniques. Patient will verbalize or demonstrate an acceptable level of pain as evidenced by a pain score of 0-3/10 and improvement in ability to perform activities of daily living to be achieved by 09/01/22. Pain No Manage Nutrition/Hydration Description: Patient/caregiver will verbalize/demonstrate knowledge of prescribed diet and/or healthy nutrition to be achieved by 09/01/22. Nutrition/Hydration No Patient/Caregiver will have improved healing and be free of signs and symptoms of complications Description: Patient/caregiver will verbalize management strategies to promote wound healing & prevent complications as evidenced by improved healing & no complications by 09/01/22. SN Integumentary/Wounds No Patient will verbalize understanding of Musculoskeletal disease process, vermin exterminator effects and effective management strategies Description: Patient will verbalize understanding of Musculoskeletal disease process, vermin exterminator effects and effective management strategies by 08/04/22. SN Muscuoskeltal Disease Process No Patient/Caregiver will verbalize understanding and demonstrate improved management of genitourinary disease/condition. Description: Patient/Caregiver will state understanding of genitourinary disease/condition and be able to teach back management strategies by 08/04/22. SN Genitourinary disease process No Interventions Intervention Associated Problem/Goal Status Variance Visit Notes Medication Education Description: Evaluate/instruct patient/caregiver on obtaining, storing, identifying and administering ordered medications as well as keeping accurate medication list in the home and adhereing to medication schedule Problem:Medication Education Goal:Patient/caregive r will demonstrate ability to obtain, store, identify and administer ordered medications, keep accurate medication list in home, and adhere to medication schedule Completed Patient instructed on importance of keeping accurate medication list in home, adhering to medication schedule, proper storage of medications, disposing of old and out of date medications and how to order refills. Risk of Sepsis Description: Patient is at risk for sepsis. Monitor closely for s/s of sepsis. Problem:Sepsis Goal:Patient/caregive r will be able to identify and report symptoms of sepsis Completed SPO2 Description: Notify Dr. Glynn if pulse ox is <92% at rest. Problem:Physician Specific Parameters Goal:Patient to maintain parameters within physician-specified ranges throughout certification period Completed Instruct on individual fall risk factors and strategies to prevent falls and injuries caused by falls. Problem:Risk for Falls Goal:Manage Risk for falls Completed SN: Patient instructed on Eliminating Environmental Hazards: Keep pathways clear, Keep pets out of pathways, Remove unsafe rugs, Move furniture from pathways, Keep rooms and walkways well lit, Install hand rails/grab bars, Wear supportive shoes or non-skid socks and Keep frequently used items within reach Instruct on pain and instruct on strategies to control pain Problem:Pain Goal:Manage Pain Completed patient instructed on techniques to control pain including Pharmacological measures and Non-Pharmacological measures; rest, positioning/elevation , mobility/therapeutic exercise, distraction and breathing/relaxation. Define patient s appetite/hydration status and implement strategies to improve compliance with prescribed diet and/or healthy nutrition. Problem:Nutrition/Hyd ration Goal:Manage Nutrition/Hydration Completed instructed patient on implementing strategies to comply with healthy nutrition and adequate hydration Wound VAC: Instruct on maintenance of Negative Pressure Wound Therapy Machine Problem:SN Integumentary/Wounds Goal:Patient/Caregive r will have improved healing and be free of signs and symptoms of complications Completed patient instructed on the following: how to turn the machine on and off, how to charge the battery, how to change the canister, proper storage and cleaning of supplies and disposal of soiled dressings. Wound Vac: Perform Negative Pressure Wound Therapy Description: Location: abdomen Frequency: 3 times a week and PRN Order: Cleanse elver-wound and wound with normal saline Skin prep to elver-wound as needed. Apply adaptive gauze/contact layer to wound bed as clinically indicated. Pack wound with black foam. Cover foam with transparent film drape and attach trac pad to film. Negative pressure to be set at pressure: 125 mmHg Continuous. Instruct on wet to dry dressing change for wound vac malfunction and to call [facility] to report. Measure wounds each dressing change. Problem:SN Integumentary/Wounds Goal:Patient/Caregive r will have improved healing and be free of signs and symptoms of complications Completed Completed. Patient did tolerate well. Patient instructed on removing wound vac in case of malfunction, applying wet to dry dressing, and calling [facility] Triage department to report wound vac off. Verified wet to dry dressing supplies in home. Instruct patient/caregiver healing process and management measures to promote healing and avoid complications Problem:SN Integumentary/Wounds Goal:Patient/Caregive r will have improved healing and be free of signs and symptoms of complications Completed patient instructed on the following: healing process, signs and symptoms of infection, importance of good nutrition and when to report symptoms. Instruct Patient/Caregiver on wound/incision care procedure as ordered by physician Problem:SN Integumentary/Wounds Goal:Patient/Caregive r will have improved healing and be free of signs and symptoms of complications Completed patient instructed on wound care as ordered by Physician. Assess/Instruct Patient/Caregiver understanding of Musculoskeletal disease process Description: Assess patient/caregiver understanding of musculoskeletal disease process osteoarthritis, fpc effects and effective management strategies. Problem:SN Muscuoskeltal Disease Process Goal:Patient will verbalize understanding of Musculoskeletal disease process, vermin exterminator effects and effective management strategies Completed Patient instructed on musculoskeletal disease process including: fpc effects, effective management strategies and signs and symptoms of exacerbation of disease and actions to take should they occur. Incontinence- Instruct Patient/Caregiver on measures to manage urinary incontinence Problem:SN Genitourinary disease process Goal:Patient/Caregive r will verbalize understanding and demonstrate improved management of genitourinary disease/condition. Completed patient instructed on measures to manage Urinary incontinence including: scheduled bathroom trips[facility] Visit Details Visit Type -SN ROUTINE Discipline -Snf Problems Problem Description Start Date Status Goals Interve ntions Medication Education Disciplines: Skilled Services 07/04/2022 Active 1 goal linked to scheduled/documen maikol intervention 1 goal intervention scheduled/document ed in this visit Sepsis Disciplines: Skilled Services 07/04/2022 Active 1 goal linked to scheduled/documen maikol intervention 1 goal intervention scheduled/document ed in this visit Physician Specific Parameters Disciplines: Skilled Services 07/04/2022 Active 1 goal linked to scheduled/documen maikol intervention 1 goal intervention scheduled/document ed in this visit Risk for Falls Disciplines: Skilled Services 07/04/2022 Active 1 goal linked to scheduled/documen maikol intervention 1 goal intervention scheduled/document ed in this visit Pain Disciplines: Skilled Services 07/04/2022 Active 1 goal linked to scheduled/documen maikol intervention 1 goal intervention scheduled/document ed in this visit Nutrition/Hydration Disciplines: Skilled Services 07/04/2022 Active 1 goal linked to scheduled/documen maikol intervention 1 goal intervention scheduled/document ed in this visit Discharge Disciplines: Skilled Services 07/04/2022 Active 1 goal linked to scheduled/documen maikol intervention 1 goal intervention scheduled/document ed in this visit SN Integumentary/Wound s Disciplines: SN 07/04/2022 Active 1 goal linked to scheduled/documen maiklo intervention 4 goal interventions scheduled/document ed in this visit SN Learning Assessment Disciplines: SN 07/04/2022 Active 1 goal linked to scheduled/documen maikol intervention 1 goal intervention scheduled/document ed in this visit SN Muscuoskeltal Disease Process Disciplines: SN 07/04/2022 Active 1 goal linked to scheduled/documen maikol intervention 1 goal intervention scheduled/document ed in this visit SN Genitourinary disease process Disciplines: SN 07/04/2022 Active 1 goal linked to scheduled/documen maikol intervention 1 goal intervention scheduled/document ed in this visit Goals Goal Associated Problem Outcome Goal Met? Visit Notes Patient/caregiver will demonstrate ability to obtain, store, identify and administer ordered medications, keep accurate medication list in home, and adhere to medication schedule Description: Patient/caregiver will demonstrate ability to obtain, store, identify and administer ordered medications, keep accurate medication list in home, and adhere to medication schedule by 09/01/22. Medication Education No Patient/caregiver will be able to identify and report symptoms of sepsis Description: Patient/caregiver will be able to identify signs/symptoms of sepsis infection and will verbalize actions to take if suspected by 09/01/22. Sepsis No Patient to maintain parameters within physician-specified ranges throughout certification period Physician Specific Parameters No Manage Risk for falls Description: Patient/caregiver will verbalize knowledge of individualized fall prevention strategies by 09/01/22. Risk for Falls No Manage Pain Description: Patient/caregiver will verbalize knowledge and understanding of appropriate techniques to control pain, including pain medication and non-pharmacological techniques. Patient will verbalize or demonstrate an acceptable level of pain as evidenced by a pain score of 0-3/10 and improvement in ability to perform activities of daily living to be achieved by 09/01/22. Pain No Manage Nutrition/Hydration Description: Patient/caregiver will verbalize/demonstrate knowledge of prescribed diet and/or healthy nutrition to be achieved by 09/01/22. Nutrition/Hydration No Manage discharge planning Description: Patient/caregiver will verbalize understanding of ongoing discharge plan provided related to disease management, arrangements for outpatient and/or community services, obtaining medications, supplies, and DME, as needed throughout certification period. Discharge No Patient/Caregiver will have improved healing and be free of signs and symptoms of complications Description: Patient/caregiver will verbalize management strategies to promote wound healing & prevent complications as evidenced by improved healing & no complications by 09/01/22. SN Integumentary/Wounds No Demonstrate understanding of education Description: Patient and/or caregiver will verbalize understanding of educational instruction provided throughout certification period. SN Learning Assessment No Patient will verbalize understanding of Musculoskeletal disease process, vermin exterminator effects and effective management strategies Description: Patient will verbalize understanding of Musculoskeletal disease process, vermin exterminator effects and effective management strategies by 08/04/22. SN Muscuoskeltal Disease Process No Patient/Caregiver will verbalize understanding and demonstrate improved management of genitourinary disease/condition. Description: Patient/Caregiver will state understanding of genitourinary disease/condition and be able to teach back management strategies by 08/04/22. SN Genitourinary disease process No Interventions Intervention Associated Problem/Goal Status Variance Visit Notes Medication Education Description: Evaluate/instruct patient/caregiver on obtaining, storing, identifying and administering ordered medications as well as keeping accurate medication list in the home and adhereing to medication schedule Problem:Medication Education Goal:Patient/caregive r will demonstrate ability to obtain, store, identify and administer ordered medications, keep accurate medication list in home, and adhere to medication schedule Completed Patient instructed on importance of keeping accurate medication list in home and adhering to medication schedule. Risk of Sepsis Description: Patient is at risk for sepsis. Monitor closely for s/s of sepsis. Problem:Sepsis Goal:Patient/caregive r will be able to identify and report symptoms of sepsis Completed SPO2 Description: Notify Dr. Glynn if pulse ox is <92% at rest. Problem:Physician Specific Parameters Goal:Patient to maintain parameters within physician-specified ranges throughout certification period Completed Instruct on individual fall risk factors and strategies to prevent falls and injuries caused by falls. Problem:Risk for Falls Goal:Manage Risk for falls Completed SN: Patient instructed on Eliminating Environmental Hazards: Keep pathways clear, Keep pets out of pathways, Remove unsafe rugs, Keep rooms and walkways well lit, Wear supportive shoes or non-skid socks and Keep frequently used items within reach Instruct on pain and instruct on strategies to control pain Problem:Pain Goal:Manage Pain Completed patient instructed on techniques to control pain including Non-Pharmacological measures; rest, positioning/elevation and distraction. Define patient s appetite/hydration status and implement strategies to improve compliance with prescribed diet and/or healthy nutrition. Problem:Nutrition/Hyd ration Goal:Manage Nutrition/Hydration Completed instructed patient on implementing strategies to comply with prescribed diet, healthy nutrition and adequate hydration Instruct on ongoing discharge plan Problem:Discharge Goal:Manage discharge planning Completed Ongoing Discharge plan: Discharge plan discussed with patient including frequency and duration for home SN and plan for transition to: live independently at home without ongoing services. Wound VAC: Instruct on maintenance of Negative Pressure Wound Therapy Machine Problem:SN Integumentary/Wounds Goal:Patient/Caregive r will have improved healing and be free of signs and symptoms of complications Completed patient instructed on the following: how to change the canister. Wound Vac: Perform Negative Pressure Wound Therapy Description: Location: abdomen Frequency: 3 times a week and PRN Order: Cleanse elver-wound and wound with normal saline Skin prep to elver-wound as needed. Apply adaptive gauze/contact layer to wound bed as clinically indicated. Pack wound with black foam. Cover foam with transparent film drape and attach trac pad to film. Negative pressure to be set at pressure: 125 mmHg Continuous. Instruct on wet to dry dressing change for wound vac malfunction and to call [facility] to report. Measure wounds each dressing change. Problem:SN Integumentary/Wounds Goal:Patient/Caregive r will have improved healing and be free of signs and symptoms of complications Completed Completed. Patient did tolerate well. Patient instructed on removing wound vac in case of malfunction, applying wet to dry dressing, and calling [facility] Triage department to report wound vac off. Verified wet to dry dressing supplies in home. Instruct patient/caregiver healing process and management measures to promote healing and avoid complications Problem:SN Integumentary/Wounds Goal:Patient/Caregive r will have improved healing and be free of signs and symptoms of complications Completed patient instructed on the following: healing process, signs and symptoms of infection and importance of good nutrition. Instruct Patient/Caregiver on wound/incision care procedure as ordered by physician Problem:SN Integumentary/Wounds Goal:Patient/Caregive r will have improved healing and be free of signs and symptoms of complications Completed patient instructed on wound care as ordered by Physician. Instruct and educate on knowledge deficits Problem:SN Learning Assessment Goal:Demonstrate understanding of education Completed patient verbalize and/or demonstrate understanding of nursing education completed today. Education methods include: verbal cues. Further education required to improve knowledge and compliance with fall prevention/home safety strategies and incision/wound care management. Assess/Instruct Patient/Caregiver understanding of Musculoskeletal disease process Description: Assess patient/caregiver understanding of musculoskeletal disease process osteoarthritis, vermin exterminator effects and effective management strategies. Problem:SN Muscuoskeltal Disease Process Goal:Patient will verbalize understanding of Musculoskeletal disease process, fpc effects and effective management strategies Completed Patient instructed on musculoskeletal disease process including: fpc effects. Incontinence- Instruct Patient/Caregiver on measures to manage urinary incontinence Problem:SN Genitourinary disease process Goal:Patient/Caregive r will verbalize understanding and demonstrate improved management of genitourinary disease/condition. Completed patient instructed on measures to manage Urinary incontinence including: skin care after incontinence episode. documented in this encounter [facility]'s home Plan of care note* Visit Details Visit Type -SN ROUTINE Discipline -Snf Problems Problem Description Start Date Status Goals Interve ntions Medication Education Disciplines: Skilled Services 07/04/2022 Active 1 goal linked to scheduled/documen maikol intervention 1 goal intervention scheduled/document ed in this visit Sepsis Disciplines: Skilled Services 07/04/2022 Active 1 goal linked to scheduled/documen maikol intervention 1 goal intervention scheduled/document ed in this visit Physician Specific Parameters Disciplines: Skilled Services 07/04/2022 Active 1 goal linked to scheduled/documen maikol intervention 1 goal intervention scheduled/document ed in this visit Risk for Falls Disciplines: Skilled Services 07/04/2022 Active 1 goal linked to scheduled/documen maikol intervention 1 goal intervention scheduled/document ed in this visit Pain Disciplines: Skilled Services 07/04/2022 Active 1 goal linked to scheduled/documen maikol intervention 1 goal intervention scheduled/document ed in this visit Nutrition/Hydration Disciplines: Skilled Services 07/04/2022 Active 1 goal linked to scheduled/documen maikol intervention 1 goal intervention scheduled/document ed in this visit Discharge Disciplines: Skilled Services 07/04/2022 Active 1 goal linked to scheduled/documen maikol intervention 1 goal intervention scheduled/document ed in this visit SN Integumentary/Wound s Disciplines: SN 07/04/2022 Active 1 goal linked to scheduled/documen maikol intervention 4 goal interventions scheduled/document ed in this visit SN Learning Assessment Disciplines: SN 07/04/2022 Active 1 goal linked to scheduled/documen maikol intervention 1 goal intervention scheduled/document ed in this visit SN Muscuoskeltal Disease Process Disciplines: SN 07/04/2022 Active 1 goal linked to scheduled/documen maikol intervention 1 goal intervention scheduled/document ed in this visit Goals Goal Associated Problem Outcome Goal Met? Visit Notes Patient/caregiver will demonstrate ability to obtain, store, identify and administer ordered medications, keep accurate medication list in home, and adhere to medication schedule Description: Patient/caregiver will demonstrate ability to obtain, store, identify and administer ordered medications, keep accurate medication list in home, and adhere to medication schedule by 09/01/22. Medication Education No Patient/caregiver will be able to identify and report symptoms of sepsis Description: Patient/caregiver will be able to identify signs/symptoms of sepsis infection and will verbalize actions to take if suspected by 09/01/22. Sepsis No Patient to maintain parameters within physician-specified ranges throughout certification period Physician Specific Parameters No Manage Risk for falls Description: Patient/caregiver will verbalize knowledge of individualized fall prevention strategies by 09/01/22. Risk for Falls No Manage Pain Description: Patient/caregiver will verbalize knowledge and understanding of appropriate techniques to control pain, including pain medication and non-pharmacological techniques. Patient will verbalize or demonstrate an acceptable level of pain as evidenced by a pain score of 0-3/10 and improvement in ability to perform activities of daily living to be achieved by 09/01/22. Pain No Manage Nutrition/Hydration Description: Patient/caregiver will verbalize/demonstrate knowledge of prescribed diet and/or healthy nutrition to be achieved by 09/01/22. Nutrition/Hydration No Manage discharge planning Description: Patient/caregiver will verbalize understanding of ongoing discharge plan provided related to disease management, arrangements for outpatient and/or community services, obtaining medications, supplies, and DME, as needed throughout certification period. Discharge No Patient/Caregiver will have improved healing and be free of signs and symptoms of complications Description: Patient/caregiver will verbalize management strategies to promote wound healing & prevent complications as evidenced by improved healing & no complications by 09/01/22. SN Integumentary/Wounds No Demonstrate understanding of education Description: Patient and/or caregiver will verbalize understanding of educational instruction provided throughout certification period. SN Learning Assessment No Patient will verbalize understanding of Musculoskeletal disease process, fpc effects and effective management strategies Description: Patient will verbalize understanding of Musculoskeletal disease process, fpc effects and effective management strategies by 08/04/22. SN Muscuoskeltal Disease Process No Interventions Intervention Associated Problem/Goal Status Variance Visit Notes Medication Education Description: Evaluate/instruct patient/caregiver on obtaining, storing, identifying and administering ordered medications as well as keeping accurate medication list in the home and adhereing to medication schedule Problem:Medication Education Goal:Patient/caregive r will demonstrate ability to obtain, store, identify and administer ordered medications, keep accurate medication list in home, and adhere to medication schedule Completed Patient instructed on importance of keeping accurate medication list in home and proper storage of medications. Risk of Sepsis Description: Patient is at risk for sepsis. Monitor closely for s/s of sepsis. Problem:Sepsis Goal:Patient/caregive r will be able to identify and report symptoms of sepsis Completed SPO2 Description: Notify Dr. Glynn if pulse ox is <92% at rest. Problem:Physician Specific Parameters Goal:Patient to maintain parameters within physician-specified ranges throughout certification period Completed Instruct on individual fall risk factors and strategies to prevent falls and injuries caused by falls. Problem:Risk for Falls Goal:Manage Risk for falls Completed SN: Patient instructed on Eliminating Environmental Hazards: Keep pathways clear, Keep pets out of pathways, Remove unsafe rugs, Keep rooms and walkways well lit and Wear supportive shoes or non-skid socks Incontinence Management: Use incontinence pads/briefs Instruct on pain and instruct on strategies to control pain Problem:Pain Goal:Manage Pain Completed patient instructed on techniques to control pain including Non-Pharmacological measures; rest, positioning/elevation and breathing/relaxation. Define patient s appetite/hydration status and implement strategies to improve compliance with prescribed diet and/or healthy nutrition. Problem:Nutrition/Hyd ration Goal:Manage Nutrition/Hydration Completed instructed patient on implementing strategies to comply with prescribed diet, healthy nutrition and adequate hydration Instruct on ongoing discharge plan Problem:Discharge Goal:Manage discharge planning Completed Ongoing Discharge plan: Discharge plan discussed with patient including frequency and duration for home SN and plan for transition to: live independently at home without ongoing services. Wound VAC: Instruct on maintenance of Negative Pressure Wound Therapy Machine Problem:SN Integumentary/Wounds Goal:Patient/Caregive r will have improved healing and be free of signs and symptoms of complications Completed patient instructed on the following: proper storage and cleaning of supplies. Wound Vac: Perform Negative Pressure Wound Therapy Description: Location: abdomen Frequency: 3 times a week and PRN Order: Cleanse elver-wound and wound with normal saline Skin prep to elver-wound as needed. Apply adaptive gauze/contact layer to wound bed as clinically indicated. Pack wound with black foam. Cover foam with transparent film drape and attach trac pad to film. Negative pressure to be set at pressure: 125 mmHg Continuous. Instruct on wet to dry dressing change for wound vac malfunction and to call [facility] to report. Measure wounds each dressing change. Problem:SN Integumentary/Wounds Goal:Patient/Caregive r will have improved healing and be free of signs and symptoms of complications Completed Completed. Patient did tolerate well. Patient verbalized independence in removing wound vac in case of malfunction, applying wet to dry dressing, and calling [facility] Triage department to report wound vac off. Verified wet to dry dressing supplies in home. Instruct patient/caregiver healing process and management measures to promote healing and avoid complications Problem:SN Integumentary/Wounds Goal:Patient/Caregive r will have improved healing and be free of signs and symptoms of complications Completed patient instructed on the following: healing process, signs and symptoms of infection, importance of good nutrition and when to report symptoms. Instruct Patient/Caregiver on wound/incision care procedure as ordered by physician Problem:SN Integumentary/Wounds Goal:Patient/Caregive r will have improved healing and be free of signs and symptoms of complications Completed patient instructed on wound care as ordered by Physician. Instruct and educate on knowledge deficits Problem:SN Learning Assessment Goal:Demonstrate understanding of education Completed patient verbalize and/or demonstrate understanding of nursing education completed today. Education methods include: verbal cues. Further education required to improve knowledge and compliance with fall prevention/home safety strategies and incision/wound care management. Assess/Instruct Patient/Caregiver understanding of Musculoskeletal disease process Description: Assess patient/caregiver understanding of musculoskeletal disease process osteoarthritis, vermin exterminator effects and effective management strategies. Problem:SN Muscuoskeltal Disease Process Goal:Patient will verbalize understanding of Musculoskeletal disease process, fpc effects and effective management strategies Completed Patient instructed on musculoskeletal disease process including: vermin exterminator effects. [facility] Visit Details Visit Type -SN ROUTINE Discipline -Snf Problems Problem Description Start Date Status Goals Interve ntions Medication Education Disciplines: Skilled Services 07/04/2022 Active 1 goal linked to scheduled/documen maikol intervention 1 goal intervention scheduled/document ed in this visit Sepsis Disciplines: Skilled Services 07/04/2022 Active 1 goal linked to scheduled/documen maikol intervention 1 goal intervention scheduled/document ed in this visit Physician Specific Parameters Disciplines: Skilled Services 07/04/2022 Active 1 goal linked to scheduled/documen maikol intervention 1 goal intervention scheduled/document ed in this visit Risk for Falls Disciplines: Skilled Services 07/04/2022 Active 1 goal linked to scheduled/documen maikol intervention 1 goal intervention scheduled/document ed in this visit Pain Disciplines: Skilled Services 07/04/2022 Active 1 goal linked to scheduled/documen maikol intervention 1 goal intervention scheduled/document ed in this visit Nutrition/Hydration Disciplines: Skilled Services 07/04/2022 Active 1 goal linked to scheduled/documen maikol intervention 1 goal intervention scheduled/document ed in this visit SN Integumentary/Wound s Disciplines: SN 07/04/2022 Active 1 goal linked to scheduled/documen maikol intervention 3 goal interventions scheduled/document ed in this visit SN Learning Assessment Disciplines: SN 07/04/2022 Active 1 goal linked to scheduled/documen amikol intervention 1 goal intervention scheduled/document ed in this visit SN Muscuoskeltal Disease Process Disciplines: SN 07/04/2022 Active 1 goal linked to scheduled/documen maikol intervention 1 goal intervention scheduled/document ed in this visit SN Genitourinary disease process Disciplines: SN 07/04/2022 Active 1 goal linked to scheduled/documen maikol intervention 1 goal intervention scheduled/document ed in this visit Goals Goal Associated Problem Outcome Goal Met? Visit Notes Patient/caregiver will demonstrate ability to obtain, store, identify and administer ordered medications, keep accurate medication list in home, and adhere to medication schedule Description: Patient/caregiver will demonstrate ability to obtain, store, identify and administer ordered medications, keep accurate medication list in home, and adhere to medication schedule by 09/01/22. Medication Education No Patient/caregiver will be able to identify and report symptoms of sepsis Description: Patient/caregiver will be able to identify signs/symptoms of sepsis infection and will verbalize actions to take if suspected by 09/01/22. Sepsis No Patient to maintain parameters within physician-specified ranges throughout certification period Physician Specific Parameters No Manage Risk for falls Description: Patient/caregiver will verbalize knowledge of individualized fall prevention strategies by 09/01/22. Risk for Falls No Manage Pain Description: Patient/caregiver will verbalize knowledge and understanding of appropriate techniques to control pain, including pain medication and non-pharmacological techniques. Patient will verbalize or demonstrate an acceptable level of pain as evidenced by a pain score of 0-3/10 and improvement in ability to perform activities of daily living to be achieved by 09/01/22. Pain No Manage Nutrition/Hydration Description: Patient/caregiver will verbalize/demonstrate knowledge of prescribed diet and/or healthy nutrition to be achieved by 09/01/22. Nutrition/Hydration No Patient/Caregiver will have improved healing and be free of signs and symptoms of complications Description: Patient/caregiver will verbalize management strategies to promote wound healing & prevent complications as evidenced by improved healing & no complications by 09/01/22. SN Integumentary/Wounds No Demonstrate understanding of education Description: Patient and/or caregiver will verbalize understanding of educational instruction provided throughout certification period. SN Learning Assessment No Patient will verbalize understanding of Musculoskeletal disease process, fpc effects and effective management strategies Description: Patient will verbalize understanding of Musculoskeletal disease process, fpc effects and effective management strategies by 08/04/22. SN Muscuoskeltal Disease Process No Patient/Caregiver will verbalize understanding and demonstrate improved management of genitourinary disease/condition. Description: Patient/Caregiver will state understanding of genitourinary disease/condition and be able to teach back management strategies by 08/04/22. SN Genitourinary disease process No Interventions Intervention Associated Problem/Goal Status Variance Visit Notes Medication Education Description: Evaluate/instruct patient/caregiver on obtaining, storing, identifying and administering ordered medications as well as keeping accurate medication list in the home and adhereing to medication schedule Problem:Medication Education Goal:Patient/caregive r will demonstrate ability to obtain, store, identify and administer ordered medications, keep accurate medication list in home, and adhere to medication schedule Completed Patient instructed on importance of keeping accurate medication list in home, adhering to medication schedule, proper storage of medications, Medication, route, dose, frequency, purpose, and side effects of current med list medications and disposing of old and out of date medications. Risk of Sepsis Description: Patient is at risk for sepsis. Monitor closely for s/s of sepsis. Problem:Sepsis Goal:Patient/caregive r will be able to identify and report symptoms of sepsis Completed SPO2 Description: Notify Dr. Glynn if pulse ox is <92% at rest. Problem:Physician Specific Parameters Goal:Patient to maintain parameters within physician-specified ranges throughout certification period Completed Instruct on individual fall risk factors and strategies to prevent falls and injuries caused by falls. Problem:Risk for Falls Goal:Manage Risk for falls Completed SN: Patient instructed on Reducing Medication Risks: Recommended medication schedule and instructed on management of side effects to minimize fall risk and injuries caused by falls Instruct on pain and instruct on strategies to control pain Problem:Pain Goal:Manage Pain Completed patient instructed on techniques to control pain including Non-Pharmacological measures; rest, positioning/elevation , mobility/therapeutic exercise and distraction. Define patient s appetite/hydration status and implement strategies to improve compliance with prescribed diet and/or healthy nutrition. Problem:Nutrition/Hyd ration Goal:Manage Nutrition/Hydration Completed instructed patient on implementing strategies to comply with healthy nutrition and adequate hydration Wound VAC: Instruct on maintenance of Negative Pressure Wound Therapy Machine Problem:SN Integumentary/Wounds Goal:Patient/Caregive r will have improved healing and be free of signs and symptoms of complications Completed patient instructed on the following: how to turn the machine on and off, how to charge the battery, how to change the canister, proper storage and cleaning of supplies and disposal of soiled dressings. Wound Vac: Perform Negative Pressure Wound Therapy Description: Location: abdomen Frequency: 3 times a week and PRN Order: Cleanse elver-wound and wound with normal saline Skin prep to elver-wound as needed. Apply adaptive gauze/contact layer to wound bed as clinically indicated. Pack wound with black foam. Cover foam with transparent film drape and attach trac pad to film. Negative pressure to be set at pressure: 125 mmHg Continuous. Instruct on wet to dry dressing change for wound vac malfunction and to call [facility] to report. Measure wounds each dressing change. Problem:SN Integumentary/Wounds Goal:Patient/Caregive r will have improved healing and be free of signs and symptoms of complications Completed Completed. Patient did tolerate well. Patient verbalized independence in removing wound vac in case of malfunction, applying wet to dry dressing, and calling [facility] Triage department to report wound vac off. Verified wet to dry dressing supplies in home. Instruct patient/caregiver healing process and management measures to promote healing and avoid complications Problem:SN Integumentary/Wounds Goal:Patient/Caregive r will have improved healing and be free of signs and symptoms of complications Completed patient instructed on the following: healing process, signs and symptoms of infection, importance of good nutrition and when to report symptoms. Instruct and educate on knowledge deficits Problem:SN Learning Assessment Goal:Demonstrate understanding of education Completed patient verbalize and/or demonstrate understanding of nursing education completed today. Education methods include: verbal cues and written instructions. Further education required to improve knowledge and compliance with integumentary care management and medication management. Assess/Instruct Patient/Caregiver understanding of Musculoskeletal disease process Description: Assess patient/caregiver understanding of musculoskeletal disease process osteoarthritis, fpc effects and effective management strategies. Problem:SN Muscuoskeltal Disease Process Goal:Patient will verbalize understanding of Musculoskeletal disease process, fpc effects and effective management strategies Completed Patient instructed on musculoskeletal disease process including: fpc effects and effective management strategies. Incontinence- Instruct Patient/Caregiver on measures to manage urinary incontinence Problem:SN Genitourinary disease process Goal:Patient/Caregive r will verbalize understanding and demonstrate improved management of genitourinary disease/condition. Completed patient instructed on measures to manage Urinary incontinence including: scheduled bathroom trips, skin care after incontinence episode and use of barrier cream. documented in this encounter [facility]'s home Plan of care note* Visit Details Visit Type -SN ROUTINE Discipline -Snf Problems Problem Description Start Date Status Goals Interve ntions Medication Education Disciplines: Skilled Services 07/04/2022 Active 1 goal linked to scheduled/documen maikol intervention 1 goal intervention scheduled/document ed in this visit Sepsis Disciplines: Skilled Services 07/04/2022 Active 1 goal linked to scheduled/documen maikol intervention 1 goal intervention scheduled/document ed in this visit Physician Specific Parameters Disciplines: Skilled Services 07/04/2022 Active 1 goal linked to scheduled/documen maikol intervention 1 goal intervention scheduled/document ed in this visit Risk for Falls Disciplines: Skilled Services 07/04/2022 Active 1 goal linked to scheduled/documen maikol intervention 1 goal intervention scheduled/document ed in this visit Pain Disciplines: Skilled Services 07/04/2022 Active 1 goal linked to scheduled/documen maikol intervention 1 goal intervention scheduled/document ed in this visit Nutrition/Hydration Disciplines: Skilled Services 07/04/2022 Active 1 goal linked to scheduled/documen maikol intervention 1 goal intervention scheduled/document ed in this visit Discharge Disciplines: Skilled Services 07/04/2022 Active 1 goal linked to scheduled/documen maikol intervention 1 goal intervention scheduled/document ed in this visit SN Integumentary/Wound s Disciplines: SN 07/04/2022 Active 1 goal linked to scheduled/documen maikol intervention 4 goal interventions scheduled/document ed in this visit SN Muscuoskeltal Disease Process Disciplines: SN 07/04/2022 Active 1 goal linked to scheduled/documen maikol intervention 1 goal intervention scheduled/document ed in this visit Goals Goal Associated Problem Outcome Goal Met? Visit Notes Patient/caregiver will demonstrate ability to obtain, store, identify and administer ordered medications, keep accurate medication list in home, and adhere to medication schedule Description: Patient/caregiver will demonstrate ability to obtain, store, identify and administer ordered medications, keep accurate medication list in home, and adhere to medication schedule by 09/01/22. Medication Education No Patient/caregiver will be able to identify and report symptoms of sepsis Description: Patient/caregiver will be able to identify signs/symptoms of sepsis infection and will verbalize actions to take if suspected by 09/01/22. Sepsis No Patient to maintain parameters within physician-specified ranges throughout certification period Physician Specific Parameters No Manage Risk for falls Description: Patient/caregiver will verbalize knowledge of individualized fall prevention strategies by 09/01/22. Risk for Falls No Manage Pain Description: Patient/caregiver will verbalize knowledge and understanding of appropriate techniques to control pain, including pain medication and non-pharmacological techniques. Patient will verbalize or demonstrate an acceptable level of pain as evidenced by a pain score of 0-3/10 and improvement in ability to perform activities of daily living to be achieved by 09/01/22. Pain No Manage Nutrition/Hydration Description: Patient/caregiver will verbalize/demonstrate knowledge of prescribed diet and/or healthy nutrition to be achieved by 09/01/22. Nutrition/Hydration No Manage discharge planning Description: Patient/caregiver will verbalize understanding of ongoing discharge plan provided related to disease management, arrangements for outpatient and/or community services, obtaining medications, supplies, and DME, as needed throughout certification period. Discharge No Patient/Caregiver will have improved healing and be free of signs and symptoms of complications Description: Patient/caregiver will verbalize management strategies to promote wound healing & prevent complications as evidenced by improved healing & no complications by 09/01/22. SN Integumentary/Wounds No Patient will verbalize understanding of Musculoskeletal disease process, vermin exterminator effects and effective management strategies Description: Patient will verbalize understanding of Musculoskeletal disease process, vermin exterminator effects and effective management strategies by 08/04/22. SN Muscuoskeltal Disease Process No Interventions Intervention Associated Problem/Goal Status Variance Visit Notes Medication Education Description: Evaluate/instruct patient/caregiver on obtaining, storing, identifying and administering ordered medications as well as keeping accurate medication list in the home and adhereing to medication schedule Problem:Medication Education Goal:Patient/caregive r will demonstrate ability to obtain, store, identify and administer ordered medications, keep accurate medication list in home, and adhere to medication schedule Completed Patient instructed on importance of keeping accurate medication list in home, adhering to medication schedule and proper storage of medications. Risk of Sepsis Description: Patient is at risk for sepsis. Monitor closely for s/s of sepsis. Problem:Sepsis Goal:Patient/caregive r will be able to identify and report symptoms of sepsis Completed SPO2 Description: Notify Dr. Glynn if pulse ox is <92% at rest. Problem:Physician Specific Parameters Goal:Patient to maintain parameters within physician-specified ranges throughout certification period Completed Instruct on individual fall risk factors and strategies to prevent falls and injuries caused by falls. Problem:Risk for Falls Goal:Manage Risk for falls Completed SN: Patient instructed on Eliminating Environmental Hazards: Keep pathways clear, Keep pets out of pathways, Keep rooms and walkways well lit, Wear supportive shoes or non-skid socks and Keep frequently used items within reach Instruct on pain and instruct on strategies to control pain Problem:Pain Goal:Manage Pain Completed patient instructed on techniques to control pain including Pharmacological measures. Define patient s appetite/hydration status and implement strategies to improve compliance with prescribed diet and/or healthy nutrition. Problem:Nutrition/Hyd ration Goal:Manage Nutrition/Hydration Completed reinforced patient on implementing strategies to comply with healthy nutrition and adequate hydration Instruct on ongoing discharge plan Problem:Discharge Goal:Manage discharge planning Completed Ongoing Discharge plan: Discharge plan discussed with patient including frequency and duration for home SN and plan for transition to: live independently at home without ongoing services. Wound VAC: Instruct on maintenance of Negative Pressure Wound Therapy Machine Problem:SN Integumentary/Wounds Goal:Patient/Caregive r will have improved healing and be free of signs and symptoms of complications Completed patient instructed on the following: how to turn the machine on and off, how to charge the battery, how to change the canister, proper storage and cleaning of supplies and disposal of soiled dressings. Wound Vac: Perform Negative Pressure Wound Therapy Description: Location: abdomen Frequency: 3 times a week and PRN Order: Cleanse elver-wound and wound with normal saline Skin prep to elver-wound as needed. Apply adaptive gauze/contact layer to wound bed as clinically indicated. Pack wound with black foam. Cover foam with transparent film drape and attach trac pad to film. Negative pressure to be set at pressure: 125 mmHg Continuous. Instruct on wet to dry dressing change for wound vac malfunction and to call [facility] to report. Measure wounds each dressing change. Problem:SN Integumentary/Wounds Goal:Patient/Caregive r will have improved healing and be free of signs and symptoms of complications Completed Completed. Patient did tolerate well. Patient instructed on and verbalized independence in removing wound vac in case of malfunction, applying wet to dry dressing, and calling [facility] Triage department to report wound vac off. Verified wet to dry dressing supplies in home. Instruct patient/caregiver healing process and management measures to promote healing and avoid complications Problem:SN Integumentary/Wounds Goal:Patient/Caregive r will have improved healing and be free of signs and symptoms of complications Completed patient instructed on the following: healing process, signs and symptoms of infection and importance of good nutrition. Instruct Patient/Caregiver on wound/incision care procedure as ordered by physician Problem:SN Integumentary/Wounds Goal:Patient/Caregive r will have improved healing and be free of signs and symptoms of complications Completed patient instructed on wound care as ordered by Physician. Assess/Instruct Patient/Caregiver understanding of Musculoskeletal disease process Description: Assess patient/caregiver understanding of musculoskeletal disease process osteoarthritis, fpc effects and effective management strategies. Problem:SN Muscuoskeltal Disease Process Goal:Patient will verbalize understanding of Musculoskeletal disease process, vermin exterminator effects and effective management strategies Completed Patient instructed on musculoskeletal disease process including: vermin exterminator effects, effective management strategies and signs and symptoms of exacerbation of disease and actions to take should they occur. documented in this encounter [facility]'s home Plan of care note* Visit Details Visit Type -SN ROUTINE Discipline -Snf Problems Problem Description Start Date Status Goals Interve ntions Medication Education Disciplines: Skilled Services 07/04/2022 Active 1 goal linked to scheduled/documen maikol intervention 1 goal intervention scheduled/document ed in this visit Sepsis Disciplines: Skilled Services 07/04/2022 Active 1 goal linked to scheduled/documen maikol intervention 1 goal intervention scheduled/document ed in this visit Physician Specific Parameters Disciplines: Skilled Services 07/04/2022 Active 1 goal linked to scheduled/documen maikol intervention 1 goal intervention scheduled/document ed in this visit Risk for Falls Disciplines: Skilled Services 07/04/2022 Active 1 goal linked to scheduled/documen maikol intervention 1 goal intervention scheduled/document ed in this visit Pain Disciplines: Skilled Services 07/04/2022 Active 1 goal linked to scheduled/documen maikol intervention 1 goal intervention scheduled/document ed in this visit Nutrition/Hydration Disciplines: Skilled Services 07/04/2022 Active 1 goal linked to scheduled/documen maikol intervention 1 goal intervention scheduled/document ed in this visit SN Integumentary/Wound s Disciplines: SN 07/04/2022 Active 1 goal linked to scheduled/documen maikol intervention 4 goal interventions scheduled/document ed in this visit SN Learning Assessment Disciplines: SN 07/04/2022 Active 1 goal linked to scheduled/documen maikol intervention 1 goal intervention scheduled/document ed in this visit SN Muscuoskeltal Disease Process Disciplines: SN 07/04/2022 Active 1 goal linked to scheduled/documen maikol intervention 1 goal intervention scheduled/document ed in this visit SN Genitourinary disease process Disciplines: SN 07/04/2022 Active 1 goal linked to scheduled/documen maikol intervention 1 goal intervention scheduled/document ed in this visit Goals Goal Associated Problem Outcome Goal Met? Visit Notes Patient/caregiver will demonstrate ability to obtain, store, identify and administer ordered medications, keep accurate medication list in home, and adhere to medication schedule Description: Patient/caregiver will demonstrate ability to obtain, store, identify and administer ordered medications, keep accurate medication list in home, and adhere to medication schedule by 09/01/22. Medication Education No Patient/caregiver will be able to identify and report symptoms of sepsis Description: Patient/caregiver will be able to identify signs/symptoms of sepsis infection and will verbalize actions to take if suspected by 09/01/22. Sepsis No Patient to maintain parameters within physician-specified ranges throughout certification period Physician Specific Parameters No Manage Risk for falls Description: Patient/caregiver will verbalize knowledge of individualized fall prevention strategies by 09/01/22. Risk for Falls No Manage Pain Description: Patient/caregiver will verbalize knowledge and understanding of appropriate techniques to control pain, including pain medication and non-pharmacological techniques. Patient will verbalize or demonstrate an acceptable level of pain as evidenced by a pain score of 0-3/10 and improvement in ability to perform activities of daily living to be achieved by 09/01/22. Pain No Manage Nutrition/Hydration Description: Patient/caregiver will verbalize/demonstrate knowledge of prescribed diet and/or healthy nutrition to be achieved by 09/01/22. Nutrition/Hydration No Patient/Caregiver will have improved healing and be free of signs and symptoms of complications Description: Patient/caregiver will verbalize management strategies to promote wound healing & prevent complications as evidenced by improved healing & no complications by 09/01/22. SN Integumentary/Wounds No Demonstrate understanding of education Description: Patient and/or caregiver will verbalize understanding of educational instruction provided throughout certification period. SN Learning Assessment No Patient will verbalize understanding of Musculoskeletal disease process, vermin exterminator effects and effective management strategies Description: Patient will verbalize understanding of Musculoskeletal disease process, vermin exterminator effects and effective management strategies by 08/04/22. SN Muscuoskeltal Disease Process No Patient/Caregiver will verbalize understanding and demonstrate improved management of genitourinary disease/condition. Description: Patient/Caregiver will state understanding of genitourinary disease/condition and be able to teach back management strategies by 08/04/22. SN Genitourinary disease process No Interventions Intervention Associated Problem/Goal Status Variance Visit Notes Medication Education Description: Evaluate/instruct patient/caregiver on obtaining, storing, identifying and administering ordered medications as well as keeping accurate medication list in the home and adhereing to medication schedule Problem:Medication Education Goal:Patient/caregive r will demonstrate ability to obtain, store, identify and administer ordered medications, keep accurate medication list in home, and adhere to medication schedule Completed Patient instructed on importance of keeping accurate medication list in home, adhering to medication schedule, proper storage of medications, Medication, route, dose, frequency, purpose, and side effects of current med list medications and disposing of old and out of date medications. Risk of Sepsis Description: Patient is at risk for sepsis. Monitor closely for s/s of sepsis. Problem:Sepsis Goal:Patient/caregive r will be able to identify and report symptoms of sepsis Completed SPO2 Description: Notify Dr. Glynn if pulse ox is <92% at rest. Problem:Physician Specific Parameters Goal:Patient to maintain parameters within physician-specified ranges throughout certification period Completed Instruct on individual fall risk factors and strategies to prevent falls and injuries caused by falls. Problem:Risk for Falls Goal:Manage Risk for falls Completed SN: Patient instructed on Reducing Medication Risks: Recommended medication schedule and instructed on management of side effects to minimize fall risk and injuries caused by falls Instruct on pain and instruct on strategies to control pain Problem:Pain Goal:Manage Pain Completed patient instructed on techniques to control pain including Non-Pharmacological measures; rest, positioning/elevation , mobility/therapeutic exercise, distraction and breathing/relaxation. Define patient s appetite/hydration status and implement strategies to improve compliance with prescribed diet and/or healthy nutrition. Problem:Nutrition/Hyd ration Goal:Manage Nutrition/Hydration Completed reinforced patient on implementing strategies to comply with healthy nutrition and adequate hydration Wound VAC: Instruct on maintenance of Negative Pressure Wound Therapy Machine Problem:SN Integumentary/Wounds Goal:Patient/Caregive r will have improved healing and be free of signs and symptoms of complications Completed patient instructed on the following: proper storage and cleaning of supplies and disposal of soiled dressings. Wound Vac: Perform Negative Pressure Wound Therapy Description: Location: abdomen Frequency: 3 times a week and PRN Order: Cleanse elver-wound and wound with normal saline Skin prep to elver-wound as needed. Apply adaptive gauze/contact layer to wound bed as clinically indicated. Pack wound with black foam. Cover foam with transparent film drape and attach trac pad to film. Negative pressure to be set at pressure: 125 mmHg Continuous. Instruct on wet to dry dressing change for wound vac malfunction and to call [facility] to report. Measure wounds each dressing change. Problem:SN Integumentary/Wounds Goal:Patient/Caregive r will have improved healing and be free of signs and symptoms of complications Completed Completed. Patient did tolerate well. Patient verbalized independence in removing wound vac in case of malfunction, applying wet to dry dressing, and calling [facility] Triage department to report wound vac off. Verified wet to dry dressing supplies in home. Instruct patient/caregiver healing process and management measures to promote healing and avoid complications Problem:SN Integumentary/Wounds Goal:Patient/Caregive r will have improved healing and be free of signs and symptoms of complications Completed patient instructed on the following: healing process, signs and symptoms of infection, importance of good nutrition and when to report symptoms. Instruct Patient/Caregiver on wound/incision care procedure as ordered by physician Problem:SN Integumentary/Wounds Goal:Patient/Caregive r will have improved healing and be free of signs and symptoms of complications Completed patient instructed on wound care as ordered by Physician. Instruct and educate on knowledge deficits Problem:SN Learning Assessment Goal:Demonstrate understanding of education Completed patient verbalize and/or demonstrate understanding of nursing education completed today. Education methods include: verbal cues and written instructions. Further education required to improve knowledge and compliance with fall prevention/home safety strategies and integumentary care management. Assess/Instruct Patient/Caregiver understanding of Musculoskeletal disease process Description: Assess patient/caregiver understanding of musculoskeletal disease process osteoarthritis, vermin exterminator effects and effective management strategies. Problem:SN Muscuoskeltal Disease Process Goal:Patient will verbalize understanding of Musculoskeletal disease process, vermin exterminator effects and effective management strategies Completed Patient instructed on musculoskeletal disease process including: vermin exterminator effects. Incontinence- Instruct Patient/Caregiver on measures to manage urinary incontinence Problem:SN Genitourinary disease process Goal:Patient/Caregive r will verbalize understanding and demonstrate improved management of genitourinary disease/condition. Completed patient instructed on measures to manage Urinary incontinence including: scheduled bathroom trips, skin care after incontinence episode and use of barrier cream. documented in this encounter [facility]'s home Plan of care note* Visit Details Visit Type -SN ROUTINE Discipline -Snf Problems Problem Description Start Date Status Goals Interve ntions Medication Education Disciplines: Skilled Services 07/04/2022 Active 1 goal linked to scheduled/document ed intervention 1 goal intervention scheduled/documente d in this visit Sepsis Disciplines: Skilled Services 07/04/2022 Active 1 goal linked to scheduled/document ed intervention 1 goal intervention scheduled/documente d in this visit Physician Specific Parameters Disciplines: Skilled Services 07/04/2022 Active 1 goal linked to scheduled/document ed intervention 1 goal intervention scheduled/documente d in this visit Pain Disciplines: Skilled Services 07/04/2022 Active 1 goal linked to scheduled/document ed intervention 1 goal intervention scheduled/documente d in this visit Nutrition/Hydra tion Disciplines: Skilled Services 07/04/2022 Active 1 goal linked to scheduled/document ed intervention 1 goal intervention scheduled/documente d in this visit SN Integumentary/W ounds Disciplines: SN 07/04/2022 Active 1 goal linked to scheduled/document ed intervention 3 goal interventions scheduled/documente d in this visit Goals Goal Associated Problem Outcome Goal Met? Visit Notes Patient/caregiver will demonstrate ability to obtain, store, identify and administer ordered medications, keep accurate medication list in home, and adhere to medication schedule Description: Patient/caregiver will demonstrate ability to obtain, store, identify and administer ordered medications, keep accurate medication list in home, and adhere to medication schedule by 09/01/22. Medication Education No Patient/caregiver will be able to identify and report symptoms of sepsis Description: Patient/caregiver will be able to identify signs/symptoms of sepsis infection and will verbalize actions to take if suspected by 09/01/22. Sepsis No Patient to maintain parameters within physician-specified ranges throughout certification period Physician Specific Parameters No Manage Pain Description: Patient/caregiver will verbalize knowledge and understanding of appropriate techniques to control pain, including pain medication and non-pharmacological techniques. Patient will verbalize or demonstrate an acceptable level of pain as evidenced by a pain score of 0-3/10 and improvement in ability to perform activities of daily living to be achieved by 09/01/22. Pain No Manage Nutrition/Hydration Description: Patient/caregiver will verbalize/demonstrate knowledge of prescribed diet and/or healthy nutrition to be achieved by 09/01/22. Nutrition/Hydration No Patient/Caregiver will have improved healing and be free of signs and symptoms of complications Description: Patient/caregiver will verbalize management strategies to promote wound healing & prevent complications as evidenced by improved healing & no complications by 09/01/22. SN Integumentary/Wounds No Interventions Intervention Associated Problem/Goal Status Variance Visit Notes Medication Education Description: Evaluate/instruct patient/caregiver on obtaining, storing, identifying and administering ordered medications as well as keeping accurate medication list in the home and adhereing to medication schedule Problem:Medication Education Goal:Patient/caregive r will demonstrate ability to obtain, store, identify and administer ordered medications, keep accurate medication list in home, and adhere to medication schedule Completed Patient instructed on importance of keeping accurate medication list in home and adhering to medication schedule. Risk of Sepsis Description: Patient is at risk for sepsis. Monitor closely for s/s of sepsis. Problem:Sepsis Goal:Patient/caregive r will be able to identify and report symptoms of sepsis Completed SPO2 Description: Notify Dr. Glynn if pulse ox is <92% at rest. Problem:Physician Specific Parameters Goal:Patient to maintain parameters within physician-specified ranges throughout certification period Completed Instruct on pain and instruct on strategies to control pain Problem:Pain Goal:Manage Pain Completed patient instructed on techniques to control pain including Pharmacological measures. Define patient s appetite/hydration status and implement strategies to improve compliance with prescribed diet and/or healthy nutrition. Problem:Nutrition/Hyd ration Goal:Manage Nutrition/Hydration Completed instructed patient on implementing strategies to comply with healthy nutrition and adequate hydration Wound Care: Perform wound care (1) Description: Discontinue wound VAC. To be performed daily and prn to abd wound: mechanical debrid with SNS, pat dry and gently pack with SNS wet/dry gauze and cover with DSD and secure with tape Problem:SN Integumentary/Wounds Goal:Patient/Caregive r will have improved healing and be free of signs and symptoms of complications Completed Completed by SN. Patient did tolerate well. Instruct patient/caregiver healing process and management measures to promote healing and avoid complications Problem:SN Integumentary/Wounds Goal:Patient/Caregive r will have improved healing and be free of signs and symptoms of complications Completed patient instructed on the following: healing process, signs and symptoms of infection and importance of good nutrition. Instruct Patient/Caregiver on wound/incision care procedure as ordered by physician Problem:SN Integumentary/Wounds Goal:Patient/Caregive r will have improved healing and be free of signs and symptoms of complications Completed patient instructed on wound care as ordered by Physician. documented in this encounter [facility]'s home Plan of care note* Visit Details Visit Type -SN ROUTINE Discipline -Snf Problems Problem Description Start Date Status Goals Interve ntions Medication Education Disciplines: Skilled Services 07/04/2022 Active 1 goal linked to scheduled/documen maikol intervention 1 goal intervention scheduled/document ed in this visit Sepsis Disciplines: Skilled Services 07/04/2022 Active 1 goal linked to scheduled/documen maikol intervention 1 goal intervention scheduled/document ed in this visit Physician Specific Parameters Disciplines: Skilled Services 07/04/2022 Active 1 goal linked to scheduled/documen maikol intervention 1 goal intervention scheduled/document ed in this visit Risk for Falls Disciplines: Skilled Services 07/04/2022 Active 1 goal linked to scheduled/documen maikol intervention 1 goal intervention scheduled/document ed in this visit Pain Disciplines: Skilled Services 07/04/2022 Active 1 goal linked to scheduled/documen maikol intervention 1 goal intervention scheduled/document ed in this visit Nutrition/Hydration Disciplines: Skilled Services 07/04/2022 Active 1 goal linked to scheduled/documen maikol intervention 1 goal intervention scheduled/document ed in this visit Discharge Disciplines: Skilled Services 07/04/2022 Active 1 goal linked to scheduled/documen maikol intervention 1 goal intervention scheduled/document ed in this visit SN Integumentary/Wound s Disciplines: SN 07/04/2022 Active 1 goal linked to scheduled/documen maikol intervention 3 goal interventions scheduled/document ed in this visit SN Learning Assessment Disciplines: SN 07/04/2022 Active 1 goal linked to scheduled/documen maikol intervention 1 goal intervention scheduled/document ed in this visit SN Muscuoskeltal Disease Process Disciplines: SN 07/04/2022 Active 1 goal linked to scheduled/documen maikol intervention 1 goal intervention scheduled/document ed in this visit SN Genitourinary disease process Disciplines: SN 07/04/2022 Active 1 goal linked to scheduled/documen maikol intervention 1 goal intervention scheduled/document ed in this visit Goals Goal Associated Problem Outcome Goal Met? Visit Notes Patient/caregiver will demonstrate ability to obtain, store, identify and administer ordered medications, keep accurate medication list in home, and adhere to medication schedule Description: Patient/caregiver will demonstrate ability to obtain, store, identify and administer ordered medications, keep accurate medication list in home, and adhere to medication schedule by 09/01/22. Medication Education No Patient/caregiver will be able to identify and report symptoms of sepsis Description: Patient/caregiver will be able to identify signs/symptoms of sepsis infection and will verbalize actions to take if suspected by 09/01/22. Sepsis No Patient to maintain parameters within physician-specified ranges throughout certification period Physician Specific Parameters No Manage Risk for falls Description: Patient/caregiver will verbalize knowledge of individualized fall prevention strategies by 09/01/22. Risk for Falls No Manage Pain Description: Patient/caregiver will verbalize knowledge and understanding of appropriate techniques to control pain, including pain medication and non-pharmacological techniques. Patient will verbalize or demonstrate an acceptable level of pain as evidenced by a pain score of 0-3/10 and improvement in ability to perform activities of daily living to be achieved by 09/01/22. Pain No Manage Nutrition/Hydration Description: Patient/caregiver will verbalize/demonstrate knowledge of prescribed diet and/or healthy nutrition to be achieved by 09/01/22. Nutrition/Hydration No Manage discharge planning Description: Patient/caregiver will verbalize understanding of ongoing discharge plan provided related to disease management, arrangements for outpatient and/or community services, obtaining medications, supplies, and DME, as needed throughout certification period. Discharge No Patient/Caregiver will have improved healing and be free of signs and symptoms of complications Description: Patient/caregiver will verbalize management strategies to promote wound healing & prevent complications as evidenced by improved healing & no complications by 09/01/22. SN Integumentary/Wounds No Demonstrate understanding of education Description: Patient and/or caregiver will verbalize understanding of educational instruction provided throughout certification period. SN Learning Assessment No Patient will verbalize understanding of Musculoskeletal disease process, vermin exterminator effects and effective management strategies Description: Patient will verbalize understanding of Musculoskeletal disease process, fpc effects and effective management strategies by 08/04/22. SN Muscuoskeltal Disease Process No Patient/Caregiver will verbalize understanding and demonstrate improved management of genitourinary disease/condition. Description: Patient/Caregiver will state understanding of genitourinary disease/condition and be able to teach back management strategies by 08/04/22. SN Genitourinary disease process No Interventions Intervention Associated Problem/Goal Status Variance Visit Notes Medication Education Description: Evaluate/instruct patient/caregiver on obtaining, storing, identifying and administering ordered medications as well as keeping accurate medication list in the home and adhereing to medication schedule Problem:Medication Education Goal:Patient/caregiv er will demonstrate ability to obtain, store, identify and administer ordered medications, keep accurate medication list in home, and adhere to medication schedule Completed Patient and Caregiver instructed on importance of keeping accurate medication list in home, adhering to medication schedule and Medication, route, dose, frequency, purpose, and side effects of all medications. Risk of Sepsis Description: Patient is at risk for sepsis. Monitor closely for s/s of sepsis. Problem:Sepsis Goal:Patient/caregiv er will be able to identify and report symptoms of sepsis Completed SPO2 Description: Notify Dr. Glynn if pulse ox is <92% at rest. Problem:Physician Specific Parameters Goal:Patient to maintain parameters within physician-specified ranges throughout certification period Completed Instruct on individual fall risk factors and strategies to prevent falls and injuries caused by falls. Problem:Risk for Falls Goal:Manage Risk for falls Completed SN: Patient and Caregiver instructed on Eliminating Environmental Hazards: Keep pathways clear, Keep pets out of pathways, Remove unsafe rugs, Move furniture from pathways and Keep rooms and walkways well lit Managing Cognitive Impairment/Depress ion: Recommended use of visual cues/reminders for safety Instruct on pain and instruct on strategies to control pain Problem:Pain Goal:Manage Pain Completed pt denies c/o pain Define patient s appetite/hydration status and implement strategies to improve compliance with prescribed diet and/or healthy nutrition. Problem:Nutrition/Hy dration Goal:Manage Nutrition/Hydration Completed instructed patient on implementing strategies to comply with healthy nutrition and adequate hydration Instruct on ongoing discharge plan Problem:Discharge Goal:Manage discharge planning Completed Ongoing Discharge plan: Discharge plan discussed with patient including frequency and duration for home SN and plan for transition to: live independently at home without ongoing services. Wound Care: Perform wound care (1) Description: Discontinue wound VAC. To be performed daily and prn to abd wound: mechanical debrid with SNS, pat dry and gently pack with SNS wet/dry gauze and cover with DSD and secure with tape Problem:SN Integumentary/Wounds Goal:Patient/Caregiv er will have improved healing and be free of signs and symptoms of complications Completed Completed by SN. Patient did tolerate well. Instruct patient/caregiver healing process and management measures to promote healing and avoid complications Problem:SN Integumentary/Wounds Goal:Patient/Caregiv er will have improved healing and be free of signs and symptoms of complications Completed patient instructed on the following: healing process, signs and symptoms of infection and importance of good nutrition. Instruct Patient/Caregiver on wound/incision care procedure as ordered by physician Problem:SN Integumentary/Wounds Goal:Patient/Caregiv er will have improved healing and be free of signs and symptoms of complications Patient independent Instruct and educate on knowledge deficits Problem:SN Learning Assessment Goal:Demonstrate understanding of education Completed patient verbalize and/or demonstrate understanding of nursing education completed today. Education methods include: verbal cues and teach back. Further education required to improve knowledge and compliance with fall prevention/home safety strategies, incision/wound care management, medication management, nutrition and pain management. Assess/Instruct Patient/Caregiver understanding of Musculoskeletal disease process Description: Assess patient/caregiver understanding of musculoskeletal disease process osteoarthritis, vermin exterminator effects and effective management strategies. Problem:SN Muscuoskeltal Disease Process Goal:Patient will verbalize understanding of Musculoskeletal disease process, fpc effects and effective management strategies Patient independent Incontinence- Instruct Patient/Caregiver on measures to manage urinary incontinence Problem:SN Genitourinary disease process Goal:Patient/Caregiv er will verbalize understanding and demonstrate improved management of genitourinary disease/condition. Patient independent documented in this encounter [facility]'s home Plan of care note* Visit Details Visit Type -SN AGENCY DC W V ISIT Discipline -Snf Problems Problem Description Start Date Status Goals Interve ntions Medication Education Disciplines: Skilled Services 07/04/2022 Resolved on 08/14/2022 1 goal linked to scheduled/documen maikol intervention 1 goal intervention scheduled/documen maikol in this visit Sepsis Disciplines: Skilled Services 07/04/2022 Resolved on 08/14/2022 1 goal linked to scheduled/documen maikol intervention Physician Specific Parameters Disciplines: Skilled Services 07/04/2022 Resolved on 08/14/2022 1 goal linked to scheduled/documen maikol intervention 1 goal intervention scheduled/documen maikol in this visit Risk for Falls Disciplines: Skilled Services 07/04/2022 Resolved on 08/14/2022 1 goal linked to scheduled/documen maikol intervention 1 goal intervention scheduled/documen maikol in this visit Pain Disciplines: Skilled Services 07/04/2022 Resolved on 08/14/2022 1 goal linked to scheduled/documen maikol intervention 1 goal intervention scheduled/documen maikol in this visit Nutrition/Hydratio n Disciplines: Skilled Services 07/04/2022 Resolved on 08/14/2022 1 goal linked to scheduled/documen maikol intervention Discharge Disciplines: Skilled Services 07/04/2022 Resolved on 08/14/2022 1 goal linked to scheduled/documen maikol intervention 1 goal intervention scheduled/documen maikol in this visit Advance Directives Disciplines: Skilled Services 07/04/2022 Resolved on 08/14/2022 1 goal linked to scheduled/documen maikol intervention SN Integumentary/Woun ds Disciplines: SN 07/04/2022 Resolved on 08/14/2022 1 goal linked to scheduled/documen maikol intervention 1 goal intervention scheduled/documen maikol in this visit SN Learning Assessment Disciplines: SN 07/04/2022 Resolved on 08/14/2022 1 goal linked to scheduled/documen maikol intervention SN Muscuoskeltal Disease Process Disciplines: SN 07/04/2022 Resolved on 08/14/2022 1 goal linked to scheduled/documen maikol intervention SN Genitourinary disease process Disciplines: SN 07/04/2022 Resolved on 08/14/2022 1 goal linked to scheduled/documen maikol intervention Infection Control Disciplines: Skilled Services 07/22/2022 Resolved on 08/14/2022 1 goal linked to scheduled/documen maikol intervention Goals Goal Associated Problem Outcome Goal Met? Visit Notes Patient/caregiver will demonstrate ability to obtain, store, identify and administer ordered medications, keep accurate medication list in home, and adhere to medication schedule Description: Patient/caregiver will demonstrate ability to obtain, store, identify and administer ordered medications, keep accurate medication list in home, and adhere to medication schedule by 09/01/22. Medication Education Completed Yes goal met Patient/caregiver will be able to identify and report symptoms of sepsis Description: Patient/caregiver will be able to identify signs/symptoms of sepsis infection and will verbalize actions to take if suspected by 09/01/22. Sepsis Completed Yes goal met Patient to maintain parameters within physician-specified ranges throughout certification period Physician Specific Parameters Completed Yes goal met Manage Risk for falls Description: Patient/caregiver will verbalize knowledge of individualized fall prevention strategies by 09/01/22. Risk for Falls Completed Yes goal met Manage Pain Description: Patient/caregiver will verbalize knowledge and understanding of appropriate techniques to control pain, including pain medication and non-pharmacological techniques. Patient will verbalize or demonstrate an acceptable level of pain as evidenced by a pain score of 0-3/10 and improvement in ability to perform activities of daily living to be achieved by 09/01/22. Pain Completed Yes goal met Manage Nutrition/Hydration Description: Patient/caregiver will verbalize/demonstrate knowledge of prescribed diet and/or healthy nutrition to be achieved by 09/01/22. Nutrition/Hydration Completed Yes goal met Manage discharge planning Description: Patient/caregiver will verbalize understanding of ongoing discharge plan provided related to disease management, arrangements for outpatient and/or community services, obtaining medications, supplies, and DME, as needed throughout certification period. Discharge Completed Yes goal met Patient/caregiver will make healthcare providers aware of and any changes to Advance Directives throughout certification period Advance Directives Completed Yes goal met Patient/Caregiver will have improved healing and be free of signs and symptoms of complications Description: Patient/caregiver will verbalize management strategies to promote wound healing & prevent complications as evidenced by improved healing & no complications by 09/01/22. SN Integumentary/Wounds Completed Yes goal met Demonstrate understanding of education Description: Patient and/or caregiver will verbalize understanding of educational instruction provided throughout certification period. SN Learning Assessment Completed Yes goal met Patient will verbalize understanding of Musculoskeletal disease process, fpc effects and effective management strategies Description: Patient will verbalize understanding of Musculoskeletal disease process, fpc effects and effective management strategies by 08/04/22. SN Muscuoskeltal Disease Process Completed Yes goal met Patient/Caregiver will verbalize understanding and demonstrate improved management of genitourinary disease/condition. Description: Patient/Caregiver will state understanding of genitourinary disease/condition and be able to teach back management strategies by 08/04/22. SN Genitourinary disease process Completed Yes goal met Prevent transmission of communicable diseases Description: Patient, caregivers, and staff will maintain precautions while infection present. Infection Control Completed Yes goal met Interventions Intervention Associated Problem/Goal Status Variance Visit Notes Medication Education Description: Evaluate/instruct patient/caregiver on obtaining, storing, identifying and administering ordered medications as well as keeping accurate medication list in the home and adhereing to medication schedule Problem:Medication Education Goal:Patient/caregive r will demonstrate ability to obtain, store, identify and administer ordered medications, keep accurate medication list in home, and adhere to medication schedule Completed Patient instructed on importance of keeping accurate medication list in home and adhering to medication schedule. SPO2 Description: Notify Dr. Glynn if pulse ox is <92% at rest. Problem:Physician Specific Parameters Goal:Patient to maintain parameters within physician-specified ranges throughout certification period Completed Instruct on individual fall risk factors and strategies to prevent falls and injuries caused by falls. Problem:Risk for Falls Goal:Manage Risk for falls Completed no longer a fall risk Instruct on pain and instruct on strategies to control pain Problem:Pain Goal:Manage Pain Completed denies pain Instruct on final discharge plan and deliver discharge instructions Problem:Discharge Goal:Manage discharge planning Completed Delivered Discharge plan: Discharge plan discussed with patient for plan for transition to: live independently at home without ongoing services Wound Care: Perform wound care (1) Description: Discontinue wound VAC. To be performed daily and prn to abd wound: mechanical debrid with SNS, pat dry and gently pack with SNS wet/dry gauze and cover with DSD and secure with tape Problem:SN Integumentary/Wounds Goal:Patient/Caregive r will have improved healing and be free of signs and symptoms of complications Scheduled documented in this encounter [facility] for referral (narrative)* Diagnostic Procedure Only (Routine) - Authorized Specialty Diagnoses / Procedures Referred By Contac t Referred To Contact [facility] Diagnoses Abnormal finding on breast imaging Procedures US BIOPSY BREAST LEFT BX BREAST W/DEVICE 1[facility]TRAS[facility] Sixto Madden MD [address] [place] [address] [facility] [address] [place] [address] Referral ID Status Reason Start Date Expiration Date Visits Requested Visits Authorized [id number] Authorized Auto-Generat ed Referral 11/04/2023 12/03/2024 1 1 T [facility] for referral (narrative)* Diagnostic Procedure Only (Routine) - Closed Specialty Diagnoses / Procedures [facility] To [facility] Diagnoses Abnormal finding on breast imaging Procedures US BIOPSY BREAST LEFT BX BREAST W/DEVICE 1[facility]TRASOUND Sixto Madden MD [address] [place] [address] [facility] [id number] [place] [address] Referral ID Status Reason Start Date Expiration Date V isits Requested Visits Authorized [id number] Closed Auto-Generate d Referral 11/04/2023 12/03/2024 1 1 T [facility] for visit Narrative* Diagnostic Procedure Only (Routine) - Closed Specialty Diagnoses / [facility] To [facility] Diagnoses Abnormal finding on breast imaging Procedures US BIOPSY BREAST LEFT BX BREAST W/DEVICE 1[facility]TRAS[facility] Sixto Madden MD [address] [place] [address] [facility] [address] [place] [address] Referral ID Status Reason Start Date Expiration Date V isits Requested Visits Authorized [id number] Closed Auto-Generate d Referral 11/04/2023 12/03/2024 1 1 [facility] for visit Narrative* MRI/CT (Routine) - Closed Specialty Diagnoses / Procedures Referred By Contac t Referred To Contact [facility] Diagnoses RLQ abdominal pain Procedures CT ABD/PEL W IVCON CT ABD & PELVIS W/CONTRAST Christy Perez MD [address] [address] Phone: tel: fax: [place] [address] Referral ID Status Reason Start Date Expiration Date V isits Requested Visits Authorized [id number] Closed Auto-Generate d Referral 08/23/2024 09/22/2025 1 1 [facility] for visit Narrative* Diagnostic Procedure Only (Routine) - Closed Specialty Diagnoses / Procedures Referred By Contac t Referred To Contact [facility] Diagnoses Right groin pain Procedures US HIP RIGHT US COMPL JOINT R-T W/IMAGE DOCUMENTATION Christy Perez MD [address] [address] Phone: tel: fax: [place] [address] Referral ID Status Reason Start Date Expiration Date V isits Requested Visits Authorized [id number] Closed Auto-Generate d Referral 09/06/2024 10/06/2025 1 1 [facility] Summary Purpose Family History No Family History Records Found Relationship Condition Age at Onset Recorded Date/T joselin brother Psychiatric care Unknown mother Anxiety Unknown Depression Unknown father Anxiety Unknown Advance Directives No Advanced Directives Records Found Date Activated Date Inactivated Comments 11/04/2024 10:24 AM 11/04/2024 7:59 PM Question Answer Comments Full Code Order Discussed With: Patient Date Activated Date Inactivated Comments 05/18/2023 9:23 AM 05/20/2023 6:13 PM Question Answer Comments Full Code Order Discussed With: Patient Date Activated Date Inactivated Comments 07/04/2022 12:59 PM 05/18/2023 5:36 AM Documents on File Type Date Recorded Patient Packager Head Expl anation Advance Directives and Living Will Power of Oracle Sql Developer Latest Code Status on File Code Status Date Activated Date Inactivated Comments Full Code 07/04/2022 12:59 PM Latest Code Status on File Code Status Date Activated Date Inactivated Comments Full Code 07/04/2022 12:59 PM Latest Code Status on File Code Status Date Activated Date Inactivated Comments Full Code 07/04/2022 12:59 PM Latest Code Status on File Code Status Date Activated Date Inactivated Comments Full Code 07/04/2022 12:59 PM Date Activated Date Inactivated Comments 05/18/2023 9:23 AM 05/20/2023 6:13 PM Date Activated Date Inactivated Comments 07/04/2022 12:59 PM 05/18/2023 5:36 AM Date Activated Date Inactivated Comments 05/18/2023 9:23 AM 05/20/2023 6:13 PM Question Answer Comments Full Code Order Discussed With: Patient Date Activated Date Inactivated Comments 07/04/2022 12:59 PM 05/18/2023 5:36 AM Instructions Instruction Description Start Date Patient advised to follow-up with Primary Care Physician for BMI management. Assessments There may be information available, but it has not been provided by the sender. Review of System There may be information available, but it has not been provided by the sender. Discharge Instructions * Instructions* Evon Lyon RN - 03/22/2019 Please follow the discharge instructions provided by Dr. Knowles's office. If you have any questions,feel free to call the office. Recovery Instructions Urinary Catheter and Leg Bag Cleaning Catheter Site: ? Wash insertion site with soap and water during your normal bathing time each day. Supplies: ? Leg Bag with straps ? Night time drainage bag ? Betadine swabs or alcohol swabs ? Vinegar ? Soap and Water Emptying your Drainage Ba. Wash your hands with soap and water. 2. Clean the emptying site with a betadine or alcohol swab prior to draining the urine. 3. Open the emptying site and drain the urine into toilet. 4. Repeat step 2 and clamp shut. Changing from a leg bag to a night ba. Wash your hands with soap and water before and after handling your catheter. 2. Empty the urine from leg bag into toilet. 3. Clean all connections and emptying sites with a betadine or alcohol swab to prevent infection. 4. With a twisting motion, disconnect the leg bag tubing from the catheter and shook machine operator the night time bag. 5. Wash the inside and outside of the leg bag with soap and water and rinse well. 6. Pour two parts vinegar to three parts water into the leg bag and cover with cap. Let sit for 20 minutes. This helps clean and deodorize the leg bag. 7. Empty the vinegar solution into the toilet, rinse the bag and let dry. 8. Empty your night time bag every eight hours or when the bag is full. 9. Always hand your night time bag down over the side of your bed so the urine will flow easily. Changing from a night bag to a leg ba. Wash your hands with soap and water before and after handling your catheter. 2. Empty the urine into the toilet. 3. Swab all connections and emptying site with betadine or alcohol swab. 4. With a twisting motion, disconnect the night time bag tubing from the catheter and attach the leg bag. 5. Put the straps around your leg. You should be able to easily place one finger under the strap alla sure it is not too tight. 6. Put protective cap over the night time after cleaning the connection site. 7. Empty the leg bag every 3 hours or when it is full. documented in this encounter History of Present Illness * Evon Lyon RN - 03/22/2019 6:00 PM EDT Discharge information given to the patient. Patient and family verbalized understanding of information. All questions were answered before discharge. Patient ambulated, denies dizziness or nausea. Tolerating PO fluids and crackers. Vital signs are stable. Patient has changed and is being discharged home in a wheelchair with valuables. * Evon Lyon RN - 03/22/2019 5:24 PM EDT [facility] [employer] [facility] resident called. Patient to call Dr. Benson collier tomorrow AM to schedule voiding trial, no homegoing antibiotics at this time. * Evon Lyon RN - 03/22/2019 5:19 PM EDT RN paged [phone] for failed voiding trial homegoing instructions, no response from [phone] when paged 30 minutes prior. Waiting for response. * Evon Lyon RN - 03/22/2019 5:12 PM EDT RN re-inserted thorpe catheter. Patient tolerated procedure well. * Evon Lyon RN - 03/22/2019 4:53 PM EDT RN paged [phone], patient did not pass voiding trial. Waiting for response. * Evon Lyon RN - 03/22/2019 4:38 PM EDT Patient ambulated to bathroom, unable to void. * Zenon Harry RN - 03/22/2019 4:10 PM EDT Pt feeling nauseated unable to go to bathroom returned to bed * Zenon Harry RN - 03/22/2019 3:55 PM EDT Voiding trial started pt ambulated to bathroom with assist x 1 gait and balance steady * Zenon Harry RN - 03/22/2019 3:36 PM EDT Pt received discharge instructions in Dr Knowles office pt read instructions at home and does not have questions at this time * Monika Charles RN - 03/22/2019 2:20 PM EDT at bedside. * Monika Charles RN - 03/22/2019 2:12 PM EDT Pt moaning, states she is in a lot of pain. Given 25mg of fentanyl. Pt states she has taken it before and has done well with it. * Zenon Harry RN - 03/22/2019 1:06 PM EDT Pt arrived to PACU from OR. Pt ID verified. Monitors applied with alarms on. Vital signs stable. * Lety Aguilar RN - 03/22/2019 10:[address] Knowles in room and completed treatment consent for surgery. 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 The patient was placed in dorsal lithotomy position and prepped and draped in sterile fashion. A surgical timeout occurred. A thorpe catheter was placed in the patient's bladder. The vaginal epithelium overlying the anterior vaginal wall was grasped with two Allis clamps, injected with 0.25% Marcaine with epinephrine and a midline incision was made over the herniation of the anterior vaginal wall. The underlying pubocervical fascia was dissected off the overlying vaginal epithelium until the herniation of the pubocervical fascia was completely exposed. Hemostasis was achieved with electrosurgical cautery. The herniation was repaired in the traditional fashion using imbricating horizontal mattress sutures o (more content not included)... Chief Complaint and Reason for Visit Chief Complaint medication refills & flu shot Not feeling well & labs drawn COMPRESSION FX Reason for Visit B12 deficiency Dizziness Fatigue Anxiety disorder Fatigue Fibromyalgia Insomnia disorder Rib pain Chronic lower back pain Chief Complaint medication refills & Labs drawn Reason for Visit Anxiety disorder Bilateral knee pain Depression Fibromyalgia Insomnia disorder Overactive bladder Chief Complaint medication refills/L abs & f/up from hospital Anxiety/feeling shaky/Wound Reason for Visit Anxiety disorder Cellulitis of left hand Insomnia disorder Osteoarthritis Anxiety disorder Depression Hypothyroid Insomnia disorder Memory deficit Nonhealing nonsurgical wound Vitamin B deficiency Chief Complaint medication refills/L abs & f/up from hospital Anxiety/feeling shaky/Wound UA dipstick Reason for Visit Anxiety disorder Cellulitis of left hand Insomnia disorder Osteoarthritis Anxiety disorder Depression Hypothyroid Insomnia disorder Memory deficit Nonhealing nonsurgical wound Vitamin B deficiency Cystitis Dysuria Chief Complaint Anxiety/feeling milton y/Wound UA dipstick Wound Care/lab MTHFR Reason for Visit Anxiety disorder Depression Hypothyroid Insomnia disorder Memory deficit Nonhealing nonsurgical wound Vitamin B deficiency Cystitis Dysuria Memory deficit Nonhealing nonsurgical wound Health Concerns Infection Onset Date Last Indicated Resolved Time COVID-19 Rule-Out 06/27/2022 06/27/2022 06/27/2022 3:01 PM EST Reason for Referral Specialty Diagnoses / Procedures Referred By Contac t Referred To Contact CT IMAGING Diagnoses Postprocedural intraabdominal abscess Procedures CT ABDOMEN W IVCON CT ABDOMEN W/CONTRAST Christy Perez MD [address] [address] [address] Imaging Referral ID Status Reason Start Date Expiration Date Visits Requested Visits Authorized [id number] Pending Review Auto-Generat ed Referral 07/21/2022 08/08/2023 1 1 Specialty Diagnoses / Procedures Referred By Contac t Referred To Contact CT IMAGING Diagnoses Hematuria, unspecified type Microscopic hematuria Procedures CT UROGRAM WO/W IVCON CT ABD & PELVIS W/WO CONTRST 1+ BODY Laura Barron MD [address] [place] [address] Ct Imaging [facility] Referral ID Status Reason Start Date Expiration Date Visits Requested Visits Authorized [id number] New Request Auto-Generat ed Referral 03/04/2024 04/03/2025 1 1 Additional Source Comments INFORMATION SOURCE (unrecogn ized section and content) DATE CREATED AUTHOR 12/12/2017 [facility] DATE CREATED AUTHOR AUTHOR'S ORGANIZ ATION 12/15/2017 [facility] DATE CREATED AUTHOR AUTHOR'S ORGANIZ ATION 02/17/2018 [facility] DATE CREATED AUTHOR AUTHOR'S ORGANIZ ATION 04/15/2019 [facility] DATE CREATED AUTHOR AUTHOR'S ORGANIZ ATION 09/10/2024 [facility] DATE CREATED AUTHOR AUTHOR'S ORGANIZ ATION 09/30/2024 [facility] DATE CREATED AUTHOR AUTHOR'S ORGANIZ ATION 11/05/2024 [facility] DATE CREATED AUTHOR AUTHOR'S ORGANIZ ATION 11/09/2024 [facility] DATE CREATED AUTHOR AUTHOR'S ORGANIZ ATION 11/16/2024 [facility] Goals (unrecognized section and content) Goals may be documented in a n alternate sectionGoals may be documented in an alternate sectionGoals may be documented in an alternate sectionGoals may be documented in an alternate sectionGoals may be documented in an alternate sectionGoals may be documented in an alternate section Source Comments (unrecognize d section and content) In the event this informatio n is protected by the Federal Confidentiality of Alcohol and Drug Abuse Patient Records regulations: The Federal rules restrict any use of the information to criminally investigate or prosecute any alcohol or drug abuse patient.[facility] the event this information is protected by the Federal Confidentiality of Alcohol and Drug Abuse Patient Records regulations: The Federal rules restrict any use of the information to criminally investigate or prosecute any alcohol or drug abuse patient.[facility] HospitalIn the event this information is protected by the Federal Confidentiality of Alcohol and Drug Abuse Patient Records regulations: The Federal rules restrict any use of the information to criminally investigate or prosecute any alcohol or drug abuse patient.[facility] HospitalIn the event this information is protected by the Federal Confidentiality of Alcohol and Drug Abuse Patient Records regulations: The Federal rules restrict any use of the information to criminally investigate or prosecute any alcohol or drug abuse patient.[facility] HospitalIn the event this information is protected by the Federal Confidentiality of Alcohol and Drug Abuse Patient Records regulations: The Federal rules restrict any use of the information to criminally investigate or prosecute any alcohol or drug abuse patient.[facility] HospitalIn the event this information is protected by the Federal Confidentiality of Alcohol and Drug Abuse Patient Records regulations: The Federal rules restrict any use of the information to criminally investigate or prosecute any alcohol or drug abuse patient.[facility] HospitalIn the event this information is protected by the Federal Confidentiality of Alcohol and Drug Abuse Patient Records regulations: The Federal rules restrict any use of the information to criminally investigate or prosecute any alcohol or drug abuse patient.[facility] HospitalIn the event this information is protected by the Federal Confidentiality of Alcohol and Drug Abuse Patient Records regulations: The Federal rules restrict any use of the information to criminally investigate or prosecute any alcohol or drug abuse patient.[facility] HospitalIn the event this information is protected by the Federal Confidentiality of Alcohol and Drug Abuse Patient Records regulations: The Federal rules restrict any use of the information to criminally investigate or prosecute any alcohol or drug abuse patient.[facility] HospitalIn the event this information is protected by the Federal Confidentiality of Alcohol and Drug Abuse Patient Records regulations: The Federal rules restrict any use of the information to criminally investigate or prosecute any alcohol or drug abuse patient.[facility] HospitalIn the event this information is protected by the Federal Confidentiality of Alcohol and Drug Abuse Patient Records regulations: The Federal rules restrict any use of the information to criminally investigate or prosecute any alcohol or drug abuse patient.[facility] HospitalIn the event this information is protected by the Federal Confidentiality of Alcohol and Drug Abuse Patient Records regulations: The Federal rules restrict any use of the information to criminally investigate or prosecute any alcohol or drug abuse patient.[facility] HospitalIn the event this information is protected by the Federal Confidentiality of Alcohol and Drug Abuse Patient Records regulations: The Federal rules restrict any use of the information to criminally investigate or prosecute any alcohol or drug abuse patient.[facility] HospitalIn the event this information is protected by the Federal Confidentiality of Alcohol and Drug Abuse Patient Records regulations: The Federal rules restrict any use of the information to criminally investigate or prosecute any alcohol or drug abuse patient.[facility] HospitalIn the event this information is protected by the Federal Confidentiality of Alcohol and Drug Abuse Patient Records regulations: The Federal rules restrict any use of the information to criminally investigate or prosecute any alcohol or drug abuse patient.[facility] HospitalIn the event this information is protected by the Federal Confidentiality of Alcohol and Drug Abuse Patient Records regulations: The Federal rules restrict any use of the information to criminally investigate or prosecute any alcohol or drug abuse patient.[facility] HospitalIn the event this information is protected by the Federal Confidentiality of Alcohol and Drug Abuse Patient Records regulations: The Federal rules restrict any use of the information to criminally investigate or prosecute any alcohol or drug abuse patient.[facility] HospitalIn the event this information is protected by the Federal Confidentiality of Alcohol and Drug Abuse Patient Records regulations: The Federal rules restrict any use of the information to criminally investigate or prosecute any alcohol or drug abuse patient.[facility] HospitalIn the event this information is protected by the Federal Confidentiality of Alcohol and Drug Abuse Patient Records regulations: The Federal rules restrict any use of the information to criminally investigate or prosecute any alcohol or drug abuse patient.[facility] HospitalIn the event this information is protected by the Federal Confidentiality of Alcohol and Drug Abuse Patient Records regulations: The Federal rules restrict any use of the information to criminally investigate or prosecute any alcohol or drug abuse patient.[facility] HospitalIn the event this information is protected by the Federal Confidentiality of Alcohol and Drug Abuse Patient Records regulations: The Federal rules restrict any use of the information to criminally investigate or prosecute any alcohol or drug abuse patient.[facility] HospitalIn the event this information is protected by the Federal Confidentiality of Alcohol and Drug Abuse Patient Records regulations: The Federal rules restrict any use of the information to criminally investigate or prosecute any alcohol or drug abuse patient.[facility] HospitalIn the event this information is protected by the Federal Confidentiality of Alcohol and Drug Abuse Patient Records regulations: The Federal rules restrict any use of the information to criminally investigate or prosecute any alcohol or drug abuse patient.[facility] HospitalIn the event this information is protected by the Federal Confidentiality of Alcohol and Drug Abuse Patient Records regulations: The Federal rules restrict any use of the information to criminally investigate or prosecute any alcohol or drug abuse patient.[facility] HospitalIn the event this information is protected by the Federal Confidentiality of Alcohol and Drug Abuse Patient Records regulations: The Federal rules restrict any use of the information to criminally investigate or prosecute any alcohol or drug abuse patient.[facility] HospitalIn the event this information is protected by the Federal Confidentiality of Alcohol and Drug Abuse Patient Records regulations: The Federal rules restrict any use of the information to criminally investigate or prosecute any alcohol or drug abuse patient.[facility] HospitalIn the event this information is protected by the Federal Confidentiality of Alcohol and Drug Abuse Patient Records regulations: The Federal rules restrict any use of the information to criminally investigate or prosecute any alcohol or drug abuse patient.[facility] HospitalIn the event this information is protected by the Federal Confidentiality of Alcohol and Drug Abuse Patient Records regulations: The Federal rules restrict any use of the information to criminally investigate or prosecute any alcohol or drug abuse patient.[facility] HospitalIn the event this information is protected by the Federal Confidentiality of Alcohol and Drug Abuse Patient Records regulations: The Federal rules restrict any use of the information to criminally investigate or prosecute any alcohol or drug abuse patient.[facility] HospitalIn the event this information is protected by the Federal Confidentiality of Alcohol and Drug Abuse Patient Records regulations: The Federal rules restrict any use of the information to criminally investigate or prosecute any alcohol or drug abuse patient.[facility] HospitalIn the event this information is protected by the Federal Confidentiality of Alcohol and Drug Abuse Patient Records regulations: The Federal rules restrict any use of the information to criminally investigate or prosecute any alcohol or drug abuse patient.[facility] HospitalIn the event this information is protected by the Federal Confidentiality of Alcohol and Drug Abuse Patient Records regulations: The Federal rules restrict any use of the information to criminally investigate or prosecute any alcohol or drug abuse patient.[facility] HospitalIn the event this information is protected by the Federal Confidentiality of Alcohol and Drug Abuse Patient Records regulations: The Federal rules restrict any use of the information to criminally investigate or prosecute any alcohol or drug abuse patient.[facility] HospitalIn the event this information is protected by the Federal Confidentiality of Alcohol and Drug Abuse Patient Records regulations: The Federal rules restrict any use of the information to criminally investigate or prosecute any alcohol or drug abuse patient.[facility] HospitalIn the event this information is protected by the Federal Confidentiality of Alcohol and Drug Abuse Patient Records regulations: The Federal rules restrict any use of the information to criminally investigate or prosecute any alcohol or drug abuse patient.[facility] HospitalIn the event this information is protected by the Federal Confidentiality of Alcohol and Drug Abuse Patient Records regulations: The Federal rules restrict any use of the information to criminally investigate or prosecute any alcohol or drug abuse patient.[facility] HospitalIn the event this information is protected by the Federal Confidentiality of Alcohol and Drug Abuse Patient Records regulations: The Federal rules restrict any use of the information to criminally investigate or prosecute any alcohol or drug abuse patient.[facility] HospitalIn the event this information is protected by the Federal Confidentiality of Alcohol and Drug Abuse Patient Records regulations: The Federal rules restrict any use of the information to criminally investigate or prosecute any alcohol or drug abuse patient.[facility] HospitalIn the event this information is protected by the Federal Confidentiality of Alcohol and Drug Abuse Patient Records regulations: The Federal rules restrict any use of the information to criminally investigate or prosecute any alcohol or drug abuse patient.[facility] HospitalIn the event this information is protected by the Federal Confidentiality of Alcohol and Drug Abuse Patient Records regulations: The Federal rules restrict any use of the information to criminally investigate or prosecute any alcohol or drug abuse patient.[facility] HospitalIn the event this information is protected by the Federal Confidentiality of Alcohol and Drug Abuse Patient Records regulations: The Federal rules restrict any use of the information to criminally investigate or prosecute any alcohol or drug abuse patient.[facility] HospitalIn the event this information is protected by the Federal Confidentiality of Alcohol and Drug Abuse Patient Records regulations: The Federal rules restrict any use of the information to criminally investigate or prosecute any alcohol or drug abuse patient.[facility] HospitalIn the event this information is protected by the Federal Confidentiality of Alcohol and Drug Abuse Patient Records regulations: The Federal rules restrict any use of the information to criminally investigate or prosecute any alcohol or drug abuse patient.[facility] HospitalIn the event this information is protected by the Federal Confidentiality of Alcohol and Drug Abuse Patient Records regulations: The Federal rules restrict any use of the information to criminally investigate or prosecute any alcohol or drug abuse patient.[facility] HospitalIn the event this information is protected by the Federal Confidentiality of Alcohol and Drug Abuse Patient Records regulations: The Federal rules restrict any use of the information to criminally investigate or prosecute any alcohol or drug abuse patient.[facility] HospitalIn the event this information is protected by the Federal Confidentiality of Alcohol and Drug Abuse Patient Records regulations: The Federal rules restrict any use of the information to criminally investigate or prosecute any alcohol or drug abuse patient.[facility] HospitalIn the event this information is protected by the Federal Confidentiality of Alcohol and Drug Abuse Patient Records regulations: The Federal rules restrict any use of the information to criminally investigate or prosecute any alcohol or drug abuse patient.[facility] HospitalIn the event this information is protected by the Federal Confidentiality of Alcohol and Drug Abuse Patient Records regulations: The Federal rules restrict any use of the information to criminally investigate or prosecute any alcohol or drug abuse patient.[facility] HospitalIn the event this information is protected by the Federal Confidentiality of Alcohol and Drug Abuse Patient Records regulations: The Federal rules restrict any use of the information to criminally investigate or prosecute any alcohol or drug abuse patient.[facility] HospitalIn the event this information is protected by the Federal Confidentiality of Alcohol and Drug Abuse Patient Records regulations: The Federal rules restrict any use of the information to criminally investigate or prosecute any alcohol or drug abuse patient.[facility] HospitalIn the event this information is protected by the Federal Confidentiality of Alcohol and Drug Abuse Patient Records regulations: The Federal rules restrict any use of the information to criminally investigate or prosecute any alcohol or drug abuse patient.[facility] HospitalIn the event this information is protected by the Federal Confidentiality of Alcohol and Drug Abuse Patient Records regulations: The Federal rules restrict any use of the information to criminally investigate or prosecute any alcohol or drug abuse patient.[facility] HospitalIn the event this information is protected by the Federal Confidentiality of Alcohol and Drug Abuse Patient Records regulations: The Federal rules restrict any use of the information to criminally investigate or prosecute any alcohol or drug abuse patient.[facility] HospitalIn the event this information is protected by the Federal Confidentiality of Alcohol and Drug Abuse Patient Records regulations: The Federal rules restrict any use of the information to criminally investigate or prosecute any alcohol or drug abuse patient.[facility] HospitalIn the event this information is protected by the Federal Confidentiality of Alcohol and Drug Abuse Patient Records regulations: The Federal rules restrict any use of the information to criminally investigate or prosecute any alcohol or drug abuse patient.[facility] HospitalIn the event this information is protected by the Federal Confidentiality of Alcohol and Drug Abuse Patient Records regulations: The Federal rules restrict any use of the information to criminally investigate or prosecute any alcohol or drug abuse patient.[facility] HospitalIn the event this information is protected by the Federal Confidentiality of Alcohol and Drug Abuse Patient Records regulations: The Federal rules restrict any use of the information to criminally investigate or prosecute any alcohol or drug abuse patient.[facility] HospitalIn the event this information is protected by the Federal Confidentiality of Alcohol and Drug Abuse Patient Records regulations: The Federal rules restrict any use of the information to criminally investigate or prosecute any alcohol or drug abuse patient.[facility] HospitalIn the event this information is protected by the Federal Confidentiality of Alcohol and Drug Abuse Patient Records regulations: The Federal rules restrict any use of the information to criminally investigate or prosecute any alcohol or drug abuse patient.[facility] HospitalIn the event this information is protected by the Federal Confidentiality of Alcohol and Drug Abuse Patient Records regulations: The Federal rules restrict any use of the information to criminally investigate or prosecute any alcohol or drug abuse patient.[facility] HospitalIn the event this information is protected by the Federal Confidentiality of Alcohol and Drug Abuse Patient Records regulations: The Federal rules restrict any use of the information to criminally investigate or prosecute any alcohol or drug abuse patient.[facility] HospitalIn the event this information is protected by the Federal Confidentiality of Alcohol and Drug Abuse Patient Records regulations: The Federal rules restrict any use of the information to criminally investigate or prosecute any alcohol or drug abuse patient.[facility] HospitalIn the event this information is protected by the Federal Confidentiality of Alcohol and Drug Abuse Patient Records regulations: The Federal rules restrict any use of the information to criminally investigate or prosecute any alcohol or drug abuse patient.[facility] HospitalIn the event this information is protected by the Federal Confidentiality of Alcohol and Drug Abuse Patient Records regulations: The Federal rules restrict any use of the information to criminally investigate or prosecute any alcohol or drug abuse patient.[facility] HospitalIn the event this information is protected by the Federal Confidentiality of Alcohol and Drug Abuse Patient Records regulations: The Federal rules restrict any use of the information to criminally investigate or prosecute any alcohol or drug abuse patient.[facility] HospitalIn the event this information is protected by the Federal Confidentiality of Alcohol and Drug Abuse Patient Records regulations: The Federal rules restrict any use of the information to criminally investigate or prosecute any alcohol or drug abuse patient.[facility] HospitalIn the event this information is protected by the Federal Confidentiality of Alcohol and Drug Abuse Patient Records regulations: The Federal rules restrict any use of the information to criminally investigate or prosecute any alcohol or drug abuse patient.[facility] HospitalIn the event this information is protected by the Federal Confidentiality of Alcohol and Drug Abuse Patient Records regulations: The Federal rules restrict any use of the information to criminally investigate or prosecute any alcohol or drug abuse patient.[facility] HospitalIn the event this information is protected by the Federal Confidentiality of Alcohol and Drug Abuse Patient Records regulations: The Federal rules restrict any use of the information to criminally investigate or prosecute any alcohol or drug abuse patient.[facility] HospitalIn the event this information is protected by the Federal Confidentiality of Alcohol and Drug Abuse Patient Records regulations: The Federal rules restrict any use of the information to criminally investigate or prosecute any alcohol or drug abuse patient.[facility] HospitalIn the event this information is protected by the Federal Confidentiality of Alcohol and Drug Abuse Patient Records regulations: The Federal rules restrict any use of the information to criminally investigate or prosecute any alcohol or drug abuse patient.[facility] HospitalIn the event this information is protected by the Federal Confidentiality of Alcohol and Drug Abuse Patient Records regulations: The Federal rules restrict any use of the information to criminally investigate or prosecute any alcohol or drug abuse patient.[facility] HospitalIn the event this information is protected by the Federal Confidentiality of Alcohol and Drug Abuse Patient Records regulations: The Federal rules restrict any use of the information to criminally investigate or prosecute any alcohol or drug abuse patient.[facility] HospitalIn the event this information is protected by the Federal Confidentiality of Alcohol and Drug Abuse Patient Records regulations: The Federal rules restrict any use of the information to criminally investigate or prosecute any alcohol or drug abuse patient.[facility] HospitalIn the event this information is protected by the Federal Confidentiality of Alcohol and Drug Abuse Patient Records regulations: The Federal rules restrict any use of the information to criminally investigate or prosecute any alcohol or drug abuse patient.[facility] HospitalIn the event this information is protected by the Federal Confidentiality of Alcohol and Drug Abuse Patient Records regulations: The Federal rules restrict any use of the information to criminally investigate or prosecute any alcohol or drug abuse patient.[facility] HospitalIn the event this information is protected by the Federal Confidentiality of Alcohol and Drug Abuse Patient Records regulations: The Federal rules restrict any use of the information to criminally investigate or prosecute any alcohol or drug abuse patient.[facility] HospitalIn the event this information is protected by the Federal Confidentiality of Alcohol and Drug Abuse Patient Records regulations: The Federal rules restrict any use of the information to criminally investigate or prosecute any alcohol or drug abuse patient.[facility] HospitalIn the event this information is protected by the Federal Confidentiality of Alcohol and Drug Abuse Patient Records regulations: The Federal rules restrict any use of the information to criminally investigate or prosecute any alcohol or drug abuse patient.[facility] Care Teams (unrecognized sec tion and content) Medical Record Retrieval Specialist Relationship Specialty Start Date End Date Cande Ely, PLANE TENDER.[employer] PCP - General Family Medicine 09/30/21 John Ojeda MD Referring Gastroenterology 02/18/11 Medical Record Retrieval Specialist Relationship Specialty Start Date End Date Cande Ely, PLANE TENDER.[employer] PCP - General Family Medicine 09/30/21 John Ojeda MD Referring Gastroenterology 02/18/11 Medical Record Retrieval Specialist Relationship Specialty Start Date End Date Cande Ely, PLANE TENDER.[employer] PCP - General Family Medicine 09/30/21 John Ojeda MD Referring Gastroenterology 02/18/11 Medical Record Retrieval Specialist Relationship Specialty Start Date End Date Cande Ely, PLANE TENDER.[employer] [address] [place] [address] PCP - General Family Medicine 09/30/21 John Ojeda MD Referring Gastroenterology 02/18/11 Medical Record Retrieval Specialist Relationship Specialty Start Date End Date Cande Ely, PLANE TENDER.[employer] [address] [place], [place] [id number] PCP - General Family Medicine 09/30/21 John Ojeda MD Referring Gastroenterology 02/18/11 Medical Record Retrieval Specialist Relationship Specialty Start Date End Date Cande Ely, PLANE TENDER.[employer] [address] [place] [address] PCP - General Family Medicine 09/30/21 John Ojeda MD Referring Gastroenterology 02/18/11 Medical Record Retrieval Specialist Relationship Specialty Start Date End Date Cande Ely, PLANE TENDER.[employer] [address] [place], [place] [id number] PCP - General Family Medicine 09/30/21 John Ojeda MD Referring Gastroenterology 02/18/11 Medical Record Retrieval Specialist Relationship Specialty Start Date End Date Cande Ely, PLANE TENDER.[employer] [address] [place], [place] [id number] PCP - General Family Medicine 09/30/21 John Ojeda MD Referring Gastroenterology 02/18/11 Lincoln Glynn MD [address] [address] Home Care Provider General Surgery 07/02/22 Gloria Stewart PA-C [address] [place] [address] Referring General Surgery 07/02/22 Tayla Whitman, RN [address] [place] [address] Lapel Padder Post Acute Care 07/02/22 Medical Record Retrieval Specialist Relationship Specialty Start Date End Date Cande Ely, PLANE TENDER.[employer] [address] [place] [address] PCP - General Family Medicine 09/30/21 John Ojeda MD Referring Gastroenterology 02/18/11 Lincoln Glynn MD [address] [address] Home Care Provider General Surgery 07/02/22 Gloria Stewart PA-C [address] [place] [address] Referring General Surgery 07/02/22 Tayla Whitman RN [address] [place] [address] Lapel Padder Post Acute Care 07/02/22 Medical Record Retrieval Specialist Relationship Specialty Start Date End Date Cande Ely, PLANE TENDER.[employer] [address] [place] [address] PCP - General Family Medicine 09/30/21 John Ojeda MD Referring Gastroenterology 02/18/11 Lincoln Glynn MD [address] [address] Home Care Provider General Surgery 07/02/22 Gloria Stewart PA-C [address] [place] [address] Referring General Surgery 07/02/22 Tayla Whitman RN [address] [place] [address] Lapel Padder Post Acute Care 07/02/22 Medical Record Retrieval Specialist Relationship Specialty Start Date End Date Cande Ely, PLANE TENDER.[employer] [address] [place] [address] PCP - General Family Medicine 09/30/21 John Ojeda MD Referring Gastroenterology 02/18/11 Lincoln Glynn MD [address] [address] Home Care Provider General Surgery 07/02/22 Gloria Stewart PA-C [address] [place] [address] Referring General Surgery 07/02/22 Tayla Whitman RN [address] [place] [address] Lapel Padder Post Acute Care 07/02/22 Medical Record Retrieval Specialist Relationship Specialty Start Date End Date Cande Ely APRN.[employer] [address] [facility] [[email or web address] [address] [place] [address] PCP - General Family Medicine 09/30/21 John Ojeda MD Referring Gastroenterology 02/18/11 Lincoln Glynn MD [address] [address] Home Care Provider General Surgery 07/02/22 Gloria Stewart PA-C [address] [place] [address] Referring General Surgery 07/02/22 Tayla Whitman RN [address] [place] [address] Lapel Padder Post Acute Care 07/02/22 Medical Record Retrieval Specialist Relationship Specialty Start Date End Date Cande Ely, PLANE TENDER.CLERK [employer]ALES [address] [facility] [address] [place] [address] PCP - General Family Medicine 09/30/21 John Ojeda MD Referring Gastroenterology 02/18/11 Lincoln Glynn MD [address] [address] Home Care Provider General Surgery 07/02/22 Gloria Stewart PA-C [address] [place] [address] Referring General Surgery 07/02/22 Tayla Whitman RN [address] [place] [address] Lapel Padder Post Acute Care 07/02/22 Medical Record Retrieval Specialist Relationship Specialty Start Date End Date Cande Ely, AUBREY.CLERK [employer]ALES [address] [facility] [address] [place] [address] PCP - General Family Medicine 09/30/21 John Ojeda MD Referring Gastroenterology 02/18/11 Lincoln Glynn MD [address] [address] Home Care Provider General Surgery 07/02/22 Gloria Stewart PA-C [address] [place] [address] Referring General Surgery 07/02/22 Tayla Whitman RN [address] [place] [address] Lapel Padder Post Acute Care 07/02/22 Medical Record Retrieval Specialist Relationship Specialty Start Date End Date Cande Ely, PLANE TENDER.CLERK [employer]AL[employer] [address] [facility] [address] [place] [address] PCP - General Family Medicine 09/30/21 John Ojeda MD Referring Gastroenterology 02/18/11 Lincoln Glynn MD [address] [address] Home Care Provider General Surgery 07/02/22 Gloria Stewart PA-C [address] [place], [place] [phone] Referring General Surgery 07/02/22 Tayla Whitman, ASIM [address] [place] [address] Lapel Padder Post Acute Care 07/02/22 Medical Record Retrieval Specialist Relationship Specialty Start Date End Date Cande Ely, PLANE TENDER.CLERK [employer] [address] [facility] [address] [place] [address] PCP - General Family Medicine 09/30/21 John Ojeda MD Referring Gastroenterology 02/18/11 Lincoln Glynn MD [address] [id number] Home Care Provider General Surgery 07/02/22 Gloria Stewart PA-C [address] [place], [place] [address] Referring General Surgery 07/02/22 Tayla Whitman RN [address] [place] [address] Lapel Padder Post Acute Care 07/02/22 Medical Record Retrieval Specialist Relationship Specialty Start Date End Date Cande Ely, PLANE TENDER.CLERK [employer]ALES [address] [facility] [address] [place] [address] PCP - General Family Medicine 09/30/21 John Ojeda MD Referring Gastroenterology 02/18/11 Lincoln Glynn MD [address] [address] Home Care Provider General Surgery 07/02/22 Gloria Stewart PA-C [address] [place], [place] [address] [phone] Referring General Surgery 07/02/22 Tayla Whitman RN [address] [place] [address] Lapel Padder Post Acute Care 07/02/22 Medical Record Retrieval Specialist Relationship Specialty Start Date End Date Cande Ely APRN.CLERK [employer] [address] [facility] [address] [place] [address] PCP - General Family Medicine 09/30/21 John Ojeda MD Referring Gastroenterology 02/18/11 Lincoln Glynn MD [address] [address] Home Care Provider General Surgery 07/02/22 Gloria Stewart PA-C [address] [place] [address] Referring General Surgery 07/02/22 Tayla Whitman RN [address] [place] [address] Lapel Padder Post Acute Care 07/02/22 Medical Record Retrieval Specialist Relationship Specialty Start Date End Date Cande Ely, AUBREY.CLERK OF SCALES [address] [facility] [address] [place] [address] PCP - General Family Medicine 09/30/21 John Ojeda MD Referring Gastroenterology 02/18/11 Lincoln Glynn MD [address] [address] Home Care Provider General Surgery 07/02/22 Gloria Stewart PA-C [address] [place] [address] Referring General Surgery 07/02/22 Tayla Whitman RN [address] [place] [address] Lapel Padder Post Acute Care 07/02/22 Medical Record Retrieval Specialist Relationship Specialty Start Date End Date Cande Ely, PLANE TENDER.CLERK [employer]ALES [address] [facility] [address] [place] [address] PCP - General Family Medicine 09/30/21 John Ojeda MD Referring Gastroenterology 02/18/11 Lincoln Glynn MD [address] [address] Home Care Provider General Surgery 07/02/22 Gloria Stewart PA-C [address] [place] [address] Referring General Surgery 07/02/22 Tayla Whitman RN [address] [place] [address] Lapel Padder Post Acute Care 07/02/22 Medical Record Retrieval Specialist Relationship Specialty Start Date End Date Cande Ely, PLANE TENDER.CLERK [employer] [address] [facility] [address] [place] [address] PCP - General Family Medicine 09/30/21 John Ojeda MD Referring Gastroenterology 02/18/11 Lincoln Glynn MD [address] [address] Home Care Provider General Surgery 07/02/22 Gloria Stewart PA-C [address] [place] [address] Referring General Surgery 07/02/22 Tayla Whitman RN [address] [place] [address] Lapel Padder Post Acute Care 07/02/22 Medical Record Retrieval Specialist Relationship Specialty Start Date End Date Cande Ely, AUBREY.CLERK [employer]ALES [address] [facility] [[email or web address] [address] [place] [address] PCP - General Family Medicine 09/30/21 Jonh Ojeda MD Referring Gastroenterology 02/18/11 Lincoln Glynn MD [address] [id number] Home Care Provider General Surgery 07/02/22 Gloria Stewart PA-C [address] [place], [place] [address] Referring General Surgery 07/02/22 Team Status: Active Member Role Status Dates Dr. Lori Nguyen , DO Family Provider Active Cande Ely SALES SUPPORT COORDINATOR, SALES SUPPORT COORDINATOR-C Primary Care Provider Active Team Status: Inactive Member Role Status Dates Cande Ely SALES SUPPORT COORDINATOR, SALES SUPPORT COORDINATOR-C Primary Care Pr ovider, Attending Provider, Referring Provider Active Team Status: Inactive Member Role Status Dates Cande Ely SALES SUPPORT COORDINATOR, SALES SUPPORT COORDINATOR-C Primary Care Provider, Attend ing Provider Active Medical Record Retrieval Specialist Relationship Specialty Start Date End Date Cande Ely APRN.CLERK [employer]ALES [address] [facility] [address] [place] [address] PCP - General Family Medicine 09/30/21 John Ojeda MD Referring Gastroenterology 02/18/11 Lincoln Glynn MD [address] [id number] Home Care Provider General Surgery 07/02/22 Gloria Stewart PA-C [address] [place], [place] [phone] Referring General Surgery 07/02/22 Medical Record Retrieval Specialist Relationship Specialty Start Date End Date Cande Ely, PLANE TENDER.CLERK [employer] [address] [place], [place] [id number] PCP - General Family Medicine 09/30/21 John Ojeda MD Referring Gastroenterology 02/18/11 Lincoln Glynn MD [address] [address] Home Care Provider General Surgery 07/02/22 Gloria Stewart PA-C [address] [place] [address] Referring General Surgery 07/02/22 Medical Record Retrieval Specialist Relationship Specialty Start Date End Date Cande Ely, PLANE TENDER.CLERK [employer]ALES [address] [place] [address] PCP - General Family Medicine 09/30/21 John Ojeda MD Referring Gastroenterology 02/18/11 Lincoln Glynn MD [address] [address] Home Care Provider General Surgery 07/02/22 Gloria Stewart PA-C [address] [place] [address] Referring General Surgery 07/02/22 Medical Record Retrieval Specialist Relationship Specialty Start Date End Date Cande Ely, PLANE TENDER.CLERK [employer]ALES [address] [place] [address] PCP - General Family Medicine 09/30/21 John Ojeda MD Referring Gastroenterology 02/18/11 Lincoln Glynn MD [address] [address] Home Care Provider General Surgery 07/02/22 Gloria Stewart PA-C [address] [place] [address] Referring General Surgery 07/02/22 Medical Record Retrieval Specialist Relationship Specialty Start Date End Date Cande Ely, PLANE TENDER.CLERK [employer]ALES [address] [place] [address] PCP - General Family Medicine 09/30/21 John Ojeda MD Referring Gastroenterology 02/18/11 Lincoln Glynn MD [address] [address] Home Care Provider General Surgery 07/02/22 Gloria Stewart PA-C [address] [place] [address] Referring General Surgery 07/02/22 Medical Record Retrieval Specialist Relationship Specialty Start Date End Date Cande Ely, PLANE TENDER.[employer]AL[employer] [address] [place] [address] PCP - General Family Medicine 09/30/21 John Ojeda MD Referring Gastroenterology 02/18/11 Lincoln Glynn MD [address] [address] Home Care Provider General Surgery 07/02/22 Gloria Stewart PA-C [address] [place] [address] Referring General Surgery 07/02/22 Medical Record Retrieval Specialist Relationship Specialty Start Date End Date Cande Ely, PLANE TENDER.CLERK [employer]ALES [address] [place] [address] PCP - General Family Medicine 09/30/21 John Ojeda MD Referring Gastroenterology 02/18/11 Lincoln Glynn MD [address] [place] [address] Home Care Provider General Surgery 07/02/22 Gloria Stewart PA-C [address] [place] [address] Referring General Surgery 07/02/22 Medical Record Retrieval Specialist Relationship Specialty Start Date End Date Cande Ely, PLANE TENDER.CLERK [employer]ALES [address] [place], [place] [address] PCP - General Family Medicine 09/30/21 John Ojeda MD Referring Gastroenterology 02/18/11 Lincoln Glynn MD [address] [address] Home Care Provider General Surgery 07/02/22 Gloria Stewart PA-C [address] [place] [address] Referring General Surgery 07/02/22 Medical Record Retrieval Specialist Relationship Specialty Start Date End Date Cande Ely, PLANE TENDER.CLERK OF SCALES [address] [facility] [address] [place] [address] PCP - General Family Medicine 09/30/21 John Ojeda MD Referring Gastroenterology 02/18/11 Lincoln Glynn MD [address] [address] Home Care Provider General Surgery 07/02/22 Gloria Stewart PA-C [address] [place] [address] Referring General Surgery 07/02/22 Medical Record Retrieval Specialist Relationship Specialty Start Date End Date Cande Ely, PLANE TENDER.CLERK OF [employer]ALES [address] [facility] [address] [place] [address] PCP - General Family Medicine 09/30/21 John Ojeda MD Referring Gastroenterology 02/18/11 Lincoln Glynn MD [address] [address] Home Care Provider General Surgery 07/02/22 Gloria Stewart PA-C [address] [place] [address] Referring General Surgery 07/02/22 Medical Record Retrieval Specialist Relationship Specialty Start Date End Date Cande Ely, PLANE TENDER.CLERK OF SCALES [address] [place] [address] PCP - General Family Medicine 09/30/21 John Ojeda MD Referring Gastroenterology 02/18/11 Lincoln Glynn MD [facility] [address] [address] Home Care Provider General Surgery 07/02/22 Gloria Stewart PA-C [address] [place] [address] Referring General Surgery 07/02/22 Medical Record Retrieval Specialist Relationship Specialty Start Date End Date Cande Ely, PLANE TENDER.CLERK [employer]ALES [address] [place] [address] PCP - General Family Medicine 09/30/21 John Ojeda MD Referring Gastroenterology 02/18/11 Lincoln Glynn MD [address] [place] [address] Home Care Provider General Surgery 07/02/22 Gloria Stewart PA-C [address] [place] [address] Referring General Surgery 07/02/22 Medical Record Retrieval Specialist Relationship Specialty Start Date End Date Cande Ely, PLANE TENDER.CLERK OF SCALES [address] [facility] [address] [place] [address] PCP - General Family Medicine 09/30/21 John Ojeda MD Referring Gastroenterology 02/18/11 Lincoln Glynn MD [address] [address] Home Care Provider General Surgery 07/02/22 Gloria Stewart PA-C [address] [place] [address] Referring General Surgery 07/02/22 Medical Record Retrieval Specialist Relationship Specialty Start Date End Date Cande Ely, PLANE TENDER.CLERK OF SCALES [address] [address] PCP - General Family Medicine 09/30/21 John Ojeda MD Referring Gastroenterology 02/18/11 Lincoln Glynn MD [address] [address] Home Care Provider General Surgery 07/02/22 Gloria Stewart PA-C [address] [place] [address] Referring General Surgery 07/02/22 Medical Record Retrieval Specialist Relationship Specialty Start Date End Date Cande Ely, PLANE TENDER.CLERK OF SCALES [address] [place], [place] [address] PCP - General Family Medicine 09/30/21 John Ojeda MD Referring Gastroenterology 02/18/11 Lincoln Glynn MD [address] [address] Home Care Provider General Surgery 07/02/22 Gloria Stewart PA-C [address] [place] [address] Referring General Surgery 07/02/22 Medical Record Retrieval Specialist Relationship Specialty Start Date End Date Cande Ely, PLANE TENDER.CLERK [employer]ALES [address] [place] [address] PCP - General Family Medicine 09/30/21 John Ojeda MD Referring Gastroenterology 02/18/11 Lincoln Glynn MD [address] [address] Home Care Provider General Surgery 07/02/22 Gloria Stewart PA-C [address] [place] [address] Referring General Surgery 07/02/22 Medical Record Retrieval Specialist Relationship Specialty Start Date End Date Cande Ely, PLANE TENDER.CLERK OF SCALES [address] [place] [address] PCP - General Family Medicine 09/30/21 John Ojeda MD Referring Gastroenterology 02/18/11 Lincoln Glynn MD [address] [address] Home Care Provider General Surgery 07/02/22 Gloria Stewart PA-C [address] [place] [address] Referring General Surgery 07/02/22 Medical Record Retrieval Specialist Relationship Specialty Start Date End Date Cande Ely, PLANE TENDER.CLERK [employer]ALES [address] [place] [address] PCP - General Family Medicine 09/30/21 John Ojeda MD Referring Gastroenterology 02/18/11 Lincoln Glynn MD [address] [address] Home Care Provider General Surgery 07/02/22 Gloria Stewart PA-C [address] [place] [address] Referring General Surgery 07/02/22 Medical Record Retrieval Specialist Relationship Specialty Start Date End Date Cande Ely, PLANE TENDER.CLERK OF SCALES [address] [place] [address] PCP - General Family Medicine 09/30/21 John Ojeda MD Referring Gastroenterology 02/18/11 Lincoln Glynn MD [address] [address] Home Care Provider General Surgery 07/02/22 Gloria Stewart PA-C [address] [place] [address] Referring General Surgery 07/02/22 Medical Record Retrieval Specialist Relationship Specialty Start Date End Date Cande Ely PLANE TENDER.CLERK OF SCALES [address] [facility] [address] [place] [address] PCP - General Family Medicine 09/30/21 John Ojeda MD Referring Gastroenterology 02/18/11 Lincoln Glynn MD [address] [place] [address] Home Care Provider General Surgery 07/02/22 Gloria Stewart PA-C [address] [place] [address] Referring General Surgery 07/02/22 Medical Record Retrieval Specialist Relationship Specialty Start Date End Date Cande Ely PLANE TENDER.CLERK OF SCALES [address] [facility] [[email or web address] [address] [place] [address] [phone] PCP - General Family Medicine 09/30/21 John Ojeda MD Referring Gastroenterology 02/18/11 Lincoln Glynn MD [address] [address] Home Care Provider General Surgery 07/02/22 Gloria Stewart PA-C [address] [place] [address] Referring General Surgery 07/02/22 Medical Record Retrieval Specialist Relationship Specialty Start Date End Date Cande Ely, PLANE TENDER.CLERK OF SCALES [address] [place] [address] PCP - General Family Medicine 09/30/21 John Ojeda MD Referring Gastroenterology 02/18/11 Lincoln Glynn MD [address] [address] Home Care Provider General Surgery 07/02/22 Gloria Stewart PA-C [address] [place] [address] Referring General Surgery 07/02/22 Medical Record Retrieval Specialist Relationship Specialty Start Date End Date Cande Ely, PLANE TENDER.CLERK OF SCALES [address] [facility] [address] [place] [address] PCP - General Family Medicine 09/30/21 John Ojeda MD Referring Gastroenterology 02/18/11 Lincoln Glynn MD [address] [address] Home Care Provider General Surgery 07/02/22 Gloria Stewart PA-C [address] [place] [address] Referring General Surgery 07/02/22 Medical Record Retrieval Specialist Relationship Specialty Start Date End Date Cande Ely, PLANE TENDER.CLERK OF SCALES [address] [facility] [[email or web address]] [address] [place], [place] [phone] PCP - General Family Medicine 09/30/21 John Ojeda MD Referring Gastroenterology 02/18/11 Lincoln Glynn MD [address] [id number] Home Care Provider General Surgery 07/02/22 Gloria Stewart PA-C [address] [place] [address] Referring General Surgery 07/02/22 Medical Record Retrieval Specialist Relationship Specialty Start Date End Date Cande Ely, PLANE TENDER.CLERK OF SCALES [address] [facility] [[email or web address]] [address] [place] [address] PCP - General Family Medicine 09/30/21 John Ojeda MD Referring Gastroenterology 02/18/11 Lincoln Glynn MD [address] [address] Home Care Provider General Surgery 07/02/22 Gloria Stewart PA-C [address] [place] [address] Referring General Surgery 07/02/22 Medical Record Retrieval Specialist Relationship Specialty Start Date End Date Cande Ely, PLANE TENDER.CLERK OF SCALES [address] [facility] [address] [place] [address] PCP - General Family Medicine 09/30/21 John Ojeda MD Referring Gastroenterology 02/18/11 Lincoln Glynn MD [address] [phone] Home Care Provider General Surgery 07/02/22 Gloria Stewart PA-C [address] [place] [address] Referring General Surgery 07/02/22 Medical Record Retrieval Specialist Relationship Specialty Start Date End Date Cande Ely, PLANE TENDER.CLERK OF SCALES [address] [address] PCP - General Family Medicine 09/30/21 John Ojeda MD Referring Gastroenterology 02/18/11 Lincoln Glynn MD [address] [address] Home Care Provider General Surgery 07/02/22 Gloria Stewart PA-C [address] [place] [address] Referring General Surgery 07/02/22 Medical Record Retrieval Specialist Relationship Specialty Start Date End Date Cande Ely, PLANE TENDER.CLERK OF SCALES [address] [place], [place] [phone] PCP - General Family Medicine 09/30/21 John Ojeda MD Referring Gastroenterology 02/18/11 Lincoln Glynn MD [address] [address] Home Care Provider General Surgery 07/02/22 Gloria Stewart PA-C [address] [place] [address] Referring General Surgery 07/02/22 Medical Record Retrieval Specialist Relationship Specialty Start Date End Date Cande Ely, PLANE TENDER.CLERK OF SCALES [address] [place] [address] PCP - General Family Medicine 09/30/21 John Ojeda MD Referring Gastroenterology 02/18/11 Lincoln Glynn MD [address] [address] Home Care Provider General Surgery 07/02/22 Gloria Stewart PA-C [address] [place] [address] Referring General Surgery 07/02/22 Medical Record Retrieval Specialist Relationship Specialty Start Date End Date Cande Ely, PLANE TENDER.CLERK OF SCALES [address] [place] [address] PCP - General Family Medicine 09/30/21 John Ojeda MD Referring Gastroenterology 02/18/11 Lincoln Glynn MD [address] [address] Home Care Provider General Surgery 07/02/22 Gloria Stewart PA-C [address] [place] [address] Referring General Surgery 07/02/22 Medical Record Retrieval Specialist Relationship Specialty Start Date End Date Cande Ely, PLANE TENDER.CLERK OF SCALES [address] [place] [address] PCP - General Family Medicine 09/30/21 John Ojeda MD Referring Gastroenterology 02/18/11 Lincoln Glynn MD [address] [address] Home Care Provider General Surgery 07/02/22 Gloria Stewart PA-C [address] [place] [address] Referring General Surgery 07/02/22 Medical Record Retrieval Specialist Relationship Specialty Start Date End Date Cande Ely, PLANE TENDER.CLERK OF SCALES [address] [place] [address] PCP - General Family Medicine 09/30/21 John Ojeda MD Referring Gastroenterology 02/18/11 Lincoln Glynn MD [address] [place] [address] Home Care Provider General Surgery 07/02/22 Gloria Stewart PA-C [address] [place] [address] Referring General Surgery 07/02/22 Medical Record Retrieval Specialist Relationship Specialty Start Date End Date Cande Ely, PLANE TENDER.CLERK OF SCALES 18 [address] [facility] [address] [place] [address] PCP - General Family Medicine 09/30/21 John Ojeda MD Referring Gastroenterology 02/18/11 Lincoln Glynn MD [address] [place] [address] Home Care Provider General Surgery 07/02/22 Gloria Stewart PA-C [address] [place] [address] Referring General Surgery 07/02/22 Medical Record Retrieval Specialist Relationship Specialty Start Date End Date Cande Ely, PLANE TENDER.CLERK OF SCALES [address] [phone] PCP - General Family Medicine 09/30/21 John Ojeda MD Referring Gastroenterology 02/18/11 Lincoln Glynn MD [address] [address] Home Care Provider General Surgery 07/02/22 Gloria Stewart PA-C [address] [place] [address] Referring General Surgery 07/02/22 Medical Record Retrieval Specialist Relationship Specialty Start Date End Date Cande Ely, PLANE TENDER.CLERK OF SCALES [address] [place] [address] PCP - General Family Medicine 09/30/21 John Ojeda MD Referring Gastroenterology 02/18/11 Lincoln Glynn MD [address] [address] Home Care Provider General Surgery 07/02/22 Gloria Stewart PA-C [address] [place] [address] Referring General Surgery 07/02/22 Medical Record Retrieval Specialist Relationship Specialty Start Date End Date Cande Ely PLANE TENDER.CLERK OF SCALES [address] [facility] [address] [place] [address] PCP - General Family Medicine 09/30/21 John Ojeda MD Referring Gastroenterology 02/18/11 Lincoln Glynn MD [address] [address] Home Care Provider General Surgery 07/02/22 Gloria Stewart PA-C [address] [place] [address] Referring General Surgery 07/02/22 Medical Record Retrieval Specialist Relationship Specialty Start Date End Date Cande Ely, PLANE TENDER.CLERK OF SCALES [address] [place] [address] PCP - General Family Medicine 09/30/21 John Ojeda MD Referring Gastroenterology 02/18/11 Lincoln Glynn MD [address] [address] Home Care Provider General Surgery 07/02/22 Gloria Stewart PA-C [address] [place] [address] Referring General Surgery 07/02/22 Medical Record Retrieval Specialist Relationship Specialty Start Date End Date Cande Ely, PLANE TENDER.CLERK OF SCALES [address] [place] [address] PCP - General Family Medicine 09/30/21 John Ojeda MD Referring Gastroenterology 02/18/11 Lincoln Glynn MD [address] [phone] Home Care Provider General Surgery 07/02/22 Gloria Stewart PA-C [address] [place] [address] Referring General Surgery 07/02/22 Medical Record Retrieval Specialist Relationship Specialty Start Date End Date Cande Ely, PLANE TENDER.CLERK OF SCALES [address] [place] [address] PCP - General Family Medicine 09/30/21 John Ojeda MD Referring Gastroenterology 02/18/11 Lincoln Glynn MD [address] [address] Home Care Provider General Surgery 07/02/22 Gloria Stewart PA-C [address] [place] [address] Referring General Surgery 07/02/22 Medical Record Retrieval Specialist Relationship Specialty Start Date End Date Cande Ely, PLANE TENDER.CLERK OF SCALES [address] [place] [address] PCP - General Family Medicine 09/30/21 John Ojeda MD Referring Gastroenterology 02/18/11 Lincoln Glynn MD [address] [address] Home Care Provider General Surgery 07/02/22 Gloria Stewart PA-C [address] [place] [address] Referring General Surgery 07/02/22 Medical Record Retrieval Specialist Relationship Specialty Start Date End Date Cande Ely, PLANE TENDER.CLERK OF SCALES [address] [facility] [address] [place] [address] PCP - General Family Medicine 09/30/21 John Ojeda MD Referring Gastroenterology 02/18/11 Lincoln Glynn MD [address] [phone] Home Care Provider General Surgery 07/02/22 Gloria Stewart PA-C [address] [place], [place] [address] Referring General Surgery 07/02/22 Reason for Visit (unrecogniz ed section and content) Reason Comments Hernia Consult Reason Comments Anesthesia Consult Reason Comments Patient Question Question Reason Comments Surgical Followup Reason Comments Home Care Confirmation call Reason Comments Patient Question See note Returning Patient's Call Specialty Diagnoses / Procedures Referred By Contac t Referred To Contact [facility] Home Care [address] [place] [address] Referral ID Status Reason Start Date Expiration Date Visits Re quested Visits Authorized [id number] 1 1 Reason Comments Surgical Followup Specialty Diagnoses / Procedures Referred By Contac t Referred To Contact CT IMAGING Diagnoses Postprocedural intraabdominal abscess Procedures CT ABDOMEN W IVCON CT ABDOMEN W/CONTRAST Christy Perez MD [address] [address] [address] Imaging Referral ID Status Reason Start Date Expiration Date V isits Requested Visits Authorized [id number] Closed Auto-Generate d Referral 07/21/2022 08/08/2023 1 1 Reason Comments Post Op Follow Up Reason Comments Home Care Unable to reach delia ent for home care visit on 07/24/2022. No visit made. Reason Comments Post Op Follow Up Wound Review Reason Comments Patient Question Specialty Diagnoses / Procedures Referred By Contac t Referred To Contact CT IMAGING Diagnoses Epigastric pain Nausea Status post hernia repair Procedures CT ABDOMEN W IVCON CT ABDOMEN W/CONTRAST Christy Perez MD [address] [address] [address] Imaging Referral ID Status Reason Start Date Expiration Date V isits Requested Visits Authorized [id number] Closed Auto-Generate d Referral 12/17/2022 01/16/2024 1 1 Reason Comments Follow Up Review CT scan 01/06 Reason Comments Results Results - Ct Reason Comments Results Reason Comments Medication Problem Reason Comments Prescription Refills Reason Comments Patient Update Reason Comments Urinary Problem Reason Comments Procedure UDS Specialty Diagnoses / [facility] Diagnoses OAB (overactive bladder) Procedures URODYNAMICS WHI COMPLX CYSTOMETRO W/VOID PRESS&URETHRAL PROFILE Sixto Knowles MD [address] [place] [address] [place] [address] Phone: tel: fax: [place] [address] [place] [address] Referral ID Status Reason Start Date Expiration Date V isits Requested Visits Authorized [id number] Closed Auto-Generate d Referral 08/01/2024 08/01/2025 1 1 Reason Comments Care Coordination Botox Reason Comments Stabbing pain in incision area From indu ia Nausea Reason Comments Procedure Cystoscopy with Boto x Specialty Diagnoses / Procedures [facility] Diagnoses OAB (overactive bladder) Procedures BOTULINUM TOXIN A PER 1 UNIT CYSTOURETHROSCOPY INJ CHEMODENERVATION BLADDER iSxto Knowles MD [address] [place] [address] [place] [address] Phone: tel: fax: [address] [place] [address] Referral ID Status Reason Start Date Expiration Date V isits Requested Visits Authorized [id number] Authorized 08/11/2024 08/11/2025 5 5 Reason Comments Appointment Reason Comments Results Reason Comments Returning Patient's Call Reason Comments Procedure Needs EUS w/ possibl e FNA Reason Comments Appointment Family calling, want s sooner appt for pt Reason Comments Patient Update Needs EGD with possi ble dilatation with EUS FOR RECORDS PERTAINING TO PATIENTS WHO ARE OR HAVE BEEN ENROLLED IN A CHEMICAL DEPENDENCY/SUBSTANCEABUSE PROGRAM, SOME INFORMATION MAY BE OMITTED. This clinical summary was aggregated from multiple sources. Caution should be exercised in using it in the provision of clinical care. This summary normalizes information from multiple sources, and as a consequence, information in this document may materially change the coding, format and clinical context of patient data. In addition, data may be omitted in some cases. CLINICAL DECISIONS SHOULD BE BASED ON THE PRIMARY CLINICAL RECORDS. [facility] [employer] [facility]. provides no warranty or guarantee of the accuracy or completeness of information in this document.
== END | disposition home or self-care (01) ==
PROVIDERS: PCP Nurse Practitioner; Referring Provider Nurse Practitioner; Visit Provider Nurse Practitioner
DX: N30.01 Acute cystitis with hematuria (principal); R30.0 Dysuria
CPT/HCPCS: 87086; 87088; 87186

== ENCOUNTER → 2025-02-28 | Outpatient (CLI) | payer MEDICARE, SELFPAY | END | disposition home or self-care (01) | PROVIDERS: PCP Nurse Practitioner; Visit Provider Nurse Practitioner | DX: N30.90 Cystitis, unspecified without hematuria (principal) | CPT/HCPCS: 87086; 87088 ==